=== PATIENT | male | born 1930 | race Caucasian/White ===

== ENCOUNTER 2016-05-13 15:51 | Emergency (ER) | payer MEDICARE, OTHER ==
[2016-05-13 15:59] VITALS: TEMP 97.6; BMI 28.8
[2016-05-13 16:53] LABS: URINE APPEARANCE CLEAR; URINE BILIRUBIN NEGATIVE (NEGATIVE); URINE COLOR YELLOW; URINE GLUCOSE (UA) NEGATIVE (NEGATIVE); URINE KETONE NEGATIVE (NEGATIVE); URINE NITRITE NEGATIVE (NEGATIVE); URINE PROTEIN NEGATIVE (NEGATIVE); URINE UROBILINOGEN NEGATIVE E.U./dl (0.2-1.0)
[2016-05-13 16:54] LABS: URINE BLOOD 2+ (NEGATIVE); URINE LEUK ESTERASE 1+ (NEGATIVE)
[2016-05-13 16:57] LABS: URINE MUCUS RARE; URINE RBC 45 /hpf (0-3); URINE WBC 10 /hpf (3-5)
[2016-05-13 17:29] LABS: CALCIUM 8.7 mg/dL (8.5-10.1); CREATININE 1.6 mg/dL (0.7-1.3)
--- NOTE | 2016-05-13 17:39 | PDOC ---
History of Present Illness - History of Present Illness Initial Comments: 05/13/16 17:46 The patient is a 85 year old male, with a significant past medical history of hypertension, hyperlipidemia, CAD s/p stents 12 years ago, s/p renal cancer, who presents to the emergency department with inability to urinate today. He reports his last urination was sometime last night. He reports numerous episodes of feeling immense pressure when trying to urinate, but denies urination today. He reports having an appointment with Dr. Freeman on where he believes he was dilated, but denies catheterization. He denies chest pain, shortness of breath, headache and dizziness. He denies fever, chills, nausea, vomit, diarrhea and constipation. He denies frequency and hematuria. 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 Farnsworth Urologist: Dr. Freeman <Anais Meehan - Last Filed: 05/13/16 17:46> <Flores Wing - Last Filed: 05/14/16 03:31> - General Chief Complaint: Urinary Problem Stated Complaint: URINARY PROBLEM Time Seen by Provider: 05/13/16 16:18 Past History <Anais Meehan - Last Filed: 05/13/16 17:46> - Past Medical History Anemia: No Asthma: No Cancer: Yes (R.KIDNEY) Cardiac Disorders: Yes (valve disease) CVA: No COPD: Yes CHF: No Dementia: No Diabetes: No GI Disorders: No Disorders: Yes (URINARY RETENTION,BPH) HTN: Yes Hypercholesterolemia: Yes Liver Disease: No Seizures: No Thyroid Disease: No - Surgical History Abdominal Surgery: No Appendectomy: No Cardiac Surgery: Yes (Angioplasty with stent,AORTIC VALVE SX) Cholecystectomy: No Lung Surgery: No Neurologic Surgery: No Orthopedic Surgery: No - Immunization History Immunization Up to Date: Yes - Psycho/Social/Smoking Cessation Hx Anxiety: No Suicidal Ideation: No Smoking History: Never smoked Have you smoked in the past 12 months: No Information on smoking cessation initiated: No Hx Alcohol Use: Yes Drug/Substance Use Hx: No Substance Use Type: Alcohol Hx Substance Use Treatment: No <Flores Wing - Last Filed: 05/14/16 03:31> - Past Medical History Allergies/Adverse Reactions: Allergies Allergy/AdvReac Type Severity Reaction Status Date / Time Penicillins Allergy Verified 05/13/16 15:59 Home Medications: Ambulatory Orders Tamsulosin HCl 0.4 mg PO DAILY 01/20/13 Aspirin Coated [Ecotrin -] 81 mg PO DAILY 04/19/14 Clopidogrel Bisulfate [Plavix -] 75 mg PO DAILY 12/02/15 Montelukast Na [Singulair -] 10 mg PO HS 12/02/15 Atorvastatin Ca [Lipitor] 40 mg PO HS 05/13/16 Ciprofloxacin [Cipro -] 500 mg PO Q12H #10 tablet 05/13/16 Finasteride 5 mg PO DAILY 05/13/16 Review of Systems - Review of Systems Able to Perform ROS?: Yes Comments:: 05/13/16 17:46 CONSTITUTIONAL: Absent: fever, chills, diaphoresis, generalized weakness, malaise, loss of appetite HEENT: Absent: rhinorrhea, nasal congestion, throat pain, throat swelling, difficulty swallowing, mouth swelling, ear pain, eye pain, visual Changes CARDIOVASCULAR: Absent: chest pain, syncope, palpitations, irregular heart rate, lightheadedness , peripheral edema RESPIRATORY: Absent: cough, shortness of breath, dyspnea with exertion, orthopnea, wheezing, stridor, hemoptysis GASTROINTESTINAL: Absent: abdominal pain, abdominal distension, nausea, vomiting, diarrhea, constipation, melena, hematochezia GENITOURINARY: (+) suprapubic pressure and inability to urinate. Absent: dysuria, frequency, hematuria, flank pain, genital pain MUSCULOSKELETAL: Absent: myalgia, arthralgia, joint swelling SKIN: Absent: rash, itching, pallor HEMATOLOGIC/IMMUNOLOGIC: Absent: easy bleeding, easy bruising, lymphadenopathy, frequent infections ENDOCRINE: Absent: unexplained weight gain, unexplained weight loss, heat intolerance, cold intolerance NEUROLOGIC: Absent: headache, focal weakness or paresthesias, dizziness, unsteady gait, seizure, mental status changes, bladder or bowel incontinence PSYCHIATRIC: Absent: anxiety, depression, suicidal or homicidal ideation, hallucinations. <Anais Meehan - Last Filed: 05/13/16 17:46> *Physical Exam - Vital Signs Last Vital Signs Temp Pulse Resp BP Pulse Ox 97.6 F 73 18 153/66 98 05/13/16 15:55 05/13/16 15:55 05/13/16 15:55 05/13/16 15:55 05/13/16 15:55 - Physical Exam Comments: 05/13/16 17:47 GENERAL: Well developed, well nourished. Awake and alert. No acute distress. HEENT: Normocephalic, atraumatic. PERRLA, EOMI. No conjunctival pallor. Sclera are non- icteric. Moist mucous membranes. Oropharynx is clear. NECK: Supple. Full ROM. No JVD. Carotid pulses 2+ and symmetric, without bruits. No thyromegaly. No lymphadenopathy. CARDIOVASCULAR: (+) Holistic murmur. Regular rate and rhythm. No rubs, or gallops. Distal pulses are 2+ and symmetric. PULMONARY: No evidence of respiratory distress. Lungs clear to auscultation bilaterally. No wheezing, rales or rhonchi. ABDOMINAL: Soft. Non-tender. Non-distended. No rebound or guarding. No organomegaly. Normoactive bowel sounds. MUSCULOSKELETAL Normal range of motion at all joints. No bony deformities or tenderness. No CVA tenderness. EXTREMITIES: (+) +1 bilateral lower extremity edema. No cyanosis. No clubbing. No calf tenderness. SKIN: Warm and dry. Normal capillary refill. No rashes. No jaundice. NEUROLOGICAL: Alert, awake, appropriate. Cranial nerves 2-12 intact. Normoreflexic in the upper and lower extremities. Normal speech. Toes are down-going bilaterally. Gait is normal without ataxia. PSYCHIATRIC: Cooperative. Good eye contact. Appropriate mood and affect. <Anais Meehan - Last Filed: 05/13/16 17:46> - Vital Signs Last Vital Signs Temp Pulse Resp BP Pulse Ox 97.6 F 73 18 153/66 98 05/13/16 15:55 05/13/16 15:55 05/13/16 15:55 05/13/16 15:55 05/13/16 15:55 <Flores Wing - Last Filed: 05/14/16 03:31> ED Treatment Course - LABORATORY CBC & Chemistry Diagram: 05/13/16 16:44 - ADDITIONAL ORDERS Additional order review: Laboratory Results 05/13/16 05/13/16 16:44 16:40 Sodium 143 Potassium 3.8 Chloride 109 H Carbon Dioxide 23 Anion Gap 11 BUN 26 H Creatinine 1.6 H Random Glucose 96 Calcium 8.7 Urine Color Yellow Urine Appearance Clear Urine pH 5.0 Ur Specific [place] 1.019 Urine Protein Negative Urine Glucose (UA) Negative Urine Ketones Negative Urine Blood 2+ H Urine Nitrite Negative Urine Bilirubin Negative Urine Urobilinogen Negative Ur Leukocyte Esterase 1+ H Urine RBC 45 Urine WBC 10 Ur Epithelial Cells Rare Urine Mucus Rare <Anais Meehan - Last Filed: 05/13/16 17:46> - LABORATORY CBC & Chemistry Diagram: 05/13/16 16:44 - ADDITIONAL ORDERS Additional order review: Laboratory Results 05/13/16 05/13/16 16:44 16:40 Sodium 143 Potassium 3.8 Chloride 109 H Carbon Dioxide 23 Anion Gap 11 BUN 26 H Creatinine 1.6 H Random Glucose 96 Calcium 8.7 Urine Color Yellow Urine Appearance Clear Urine pH 5.0 Ur Specific [place] 1.019 Urine Protein Negative Urine Glucose (UA) Negative Urine Ketones Negative Urine Blood 2+ H Urine Nitrite Negative Urine Bilirubin Negative Urine Urobilinogen Negative Ur Leukocyte Esterase 1+ H Urine RBC 45 Urine WBC 10 Ur Epithelial Cells Rare Urine Mucus Rare <Flores Wing - Last Filed: 05/14/16 03:31> Medical Decision Making - Medical Decision Making 05/14/16 03:28 85 yo male w h/o BPH has had urinary retention today. He has had this problem before and his urologist is Dr Sage -stone catheter was placed and pt felt much better -greater 400cc of urine obtained -pt placed on cipro /discharged and will see urologist this week <Flores Wing - Last Filed: 05/14/16 03:31> *DC/Admit/Observation/Transfer - Attestations Scribe Attestion: 05/13/16 17:47 Documentation prepared by Anais Meehan, acting as chief medical officer for Flores Wing MD <Anais Meehan - Last Filed: 05/13/16 17:46> <Flores Wing - Last Filed: 05/14/16 03:31> Diagnosis at time of Disposition: Urinary retention - Discharge Dispostion Disposition: HOME Condition at time of disposition: Stable - Prescriptions Prescriptions: Ciprofloxacin [Cipro -] 500 mg PO Q12H #10 tablet - Referrals Referrals: Melvin Goff MD [Primary Care Provider] - Maciej Freeman MD [Staff Physician] - - Patient Instructions Printed Discharge Instructions: DI for Urinary Retention in Men Additional Instructions: please see your urologist as soon as possible [employer] the prescription for your antibiotics at your pharmacy
[2016-05-13] MEDS ORDERED: LEVOFLOXACIN 500 MG TABLET (FP) PO ONE (17:42)
[2016-05-13] MEDS ORDERED: LEVOFLOXACIN 500 MG TABLET (FP) ONE (18:00)
[2016-05-13 18:05] VITALS: BP 149/70; PULSE 81
== END 2016-05-13 18:05 | disposition home or self-care (01) ==
LOC: JER 15:51
PROC: 0T9B70Z Drainage of Bladder with Drainage Device, Via Natural or Artificial Opening (ICD-10-PCS; principal; 2016-05-13)
DX: N40.1 Benign prostatic hyperplasia with lower urinary tract symptoms (principal); R33.8 Other retention of urine; I25.10 Atherosclerotic heart disease of native coronary artery without angina pectoris; I10 Essential (primary) hypertension; Z95.5 Presence of coronary angioplasty implant and graft; E78.5 Hyperlipidemia, unspecified; E78.00 Pure hypercholesterolemia, unspecified; Z85.528 Personal history of other malignant neoplasm of kidney
CPT/HCPCS: 36415; 51702; 80048; 81003; 81015; 87086; 99283-25

== ENCOUNTER 2016-08-06 15:15 | Inpatient (IN) | payer OTHER ==
[2016-08-06 17:15] LABS: BASOPHIL 0.5 % (0-2.0); EOSINOPHIL 0.8 % (0-4.5); MCH 29.2 pg (25.7-33.7); MCHC 33.2 g/dl (32.0-35.9); MEAN CELL VOLUME 87.9 fl (80-96); MEAN PLT VOLUME 9.8 fl (7.5-11.1); NEUTROPHILS 85.8 % (42.8-82.8); PLATELET COUNT 135 K/MM3 (134-434); RDW 17.4 % (11.9-15.9); WHITE BLOOD COUNT 11.9 K/mm3 (4.0-10.0)
--- NOTE | 2016-08-06 17:24 | PDOC ---
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 Patient underwent an MRI on 07/20 as part of a workup for pancreatic head density. An obstructing CBD stone measuring at least 1 cm with marked proximal CBD dilatation up to 1.4 cm and intrahepatic biliary ductal dilatation was incidentally noted. The patient presents today complaining of abdominal pain. He had 1 episode of "clear" vomiting on and then again on Saturday. He is complaining of chills. Vital signs on arrival are unremarkable. PCP is Dr. 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 No weakness. No weight change. HEAD, EYES, EARS, NOSE AND THROAT: No change in vision. No ear pain or discharge. No sore throat. CARDIOVASCULAR: No chest pain or palpitations. RESPIRATORY: No cough, wheezing, or shortness of breath. GASTROINTESTINAL: See HPI. GENITOURINARY: No dysuria, frequency, or change in urination. MUSCULOSKELETAL: No joint or muscle swelling or pain. No neck or back pain. SKIN: No rash or easy bruising. NEUROLOGIC: No headache, vertigo, loss of consciousness, or loss of sensation. PSYCHIATRIC: No depression or anxiety. ENDOCRINE: No increased thirst. No abnormal weight change. HEMATOLOGIC/LYMPHATIC: No anemia, easy bleeding, or history of blood clots. ALLERGIC/IMMUNOLOGIC: No hives or skin allergy. No latex allergy. PHYSICAL EXAM: GENERAL: The patient is awake, alert, and fully oriented, in no acute distress. HEAD: Normal with no signs of trauma. ENT: Pupils equal, round and reactive to light, extraocular movements intact, sclera anicteric, conjunctiva clear. Neck supple. LUNGS: Clear to auscultation bilaterally. Normal excursion. No respiratory distress or use of accessory muscles. CV: RRR, S1/S2, no MRG. Cap refill < 2 sec. ABDOMEN: Soft, non-distended, RUQ tenderness. Periumbilical erythema and purulent, malodorous discharge. EXTREMITIES: Normal range of motion, no edema. NEUROLOGICAL: Normal speech, normal gait. CN II-XII grossly intact. PSYCH: Normal mood, normal affect. SKIN: Warm, dry, normal turgor, no rashes or lesions noted. Past History - Past Medical History Allergies/Adverse Reactions: Allergies Allergy/AdvReac Type Severity Reaction Status Date / Time Penicillins Allergy Verified 08/06/16 15:20 Home Medications: Ambulatory Orders Aspirin Coated [Ecotrin -] 81 mg PO DAILY 04/19/14 Montelukast Na [Singulair -] 10 mg PO HS 12/02/15 Atorvastatin Ca [Lipitor] 40 mg PO HS 05/13/16 Finasteride 5 mg PO DAILY 05/13/16 Anemia: No Asthma: No Cancer: Yes (R.KIDNEY) Cardiac Disorders: Yes (valve disease) CVA: No COPD: Yes CHF: No Dementia: No Diabetes: No GI Disorders: No Disorders: Yes (URINARY RETENTION,BPH) HTN: Yes Hypercholesterolemia: Yes Liver Disease: No Seizures: No Thyroid Disease: No - Surgical History Abdominal Surgery: No Appendectomy: No Cardiac Surgery: Yes (Angioplasty with stent,AORTIC VALVE SX) Cholecystectomy: No Lung Surgery: No Neurologic Surgery: No Orthopedic Surgery: No - Immunization History Immunization Up to Date: Yes - Psycho/Social/Smoking Cessation Hx Anxiety: No Suicidal Ideation: No Smoking History: Never smoked Have you smoked in the past 12 months: No Information on smoking cessation initiated: No Hx Alcohol Use: No Drug/Substance Use Hx: No Substance Use Type: None Hx Substance Use Treatment: No *Physical Exam - Vital Signs Last Vital Signs Temp Pulse Resp BP Pulse Ox 97.4 F L 87 17 140/59 97 08/06/16 15:18 08/06/16 15:18 08/06/16 15:18 08/06/16 15:18 08/06/16 15:18 ED Treatment Course - LABORATORY CBC & Chemistry Diagram: 08/06/16 16:51 08/06/16 16:51 - ADDITIONAL ORDERS Additional order review: 08/06/16 16:51 RBC 3.66 L MCV 87.9 MCHC 33.2 RDW 17.4 H D MPV 9.8 D Neutrophils % 85.8 H Lymphocytes % 5.8 L D Monocytes % 7.1 Eosinophils % 0.8 Basophils % 0.5 - RADIOLOGY Radiology Studies Ordered: Category Date Time Status CHEST X-RAY PORTABLE* [RAD] Stat Radiology 08/06/16 17:00 Ordered GALLBLADDER US [US] Stat Ultrasound 08/06/16 16:52 Ordered Medical Decision Making - Medical Decision Making 08/06/16 17:54 A/P: 85 year old male with abdominal pain, vomiting, and chills; large, obstructing CBD stone on outpatient MRI two weeks ago. 1. EKG 2. Abdominal labs 3. Abd u/s 4. GI consultation 5. Culture of umbilical discharge 6. Antibiotic coverage with Levaquin/Flagyl 7. Anticipate admission 08/06/16 18:18 -WBC is 11.9 08/06/16 18:52 -Total/direct Bili 9.7/8 -AST/ALT 114/87 -Alk Phos 1048 -Cr 3.3 (1.6 on prior visit in June) Will request admission. *DC/Admit/Observation/Transfer Diagnosis at time of Disposition: Calculus of common duct with obstruction - Discharge Dispostion Admit: Yes - Referrals Referrals: Melvin Goff MD [Primary Care Provider] -
[2016-08-06 17:46] LABS: ALBUMIN 2.6 g/dl (3.4-5.0); CALCIUM 8.5 mg/dL (8.5-10.1); COCKROFT - GAULT 19.02; CREATININE 3.3 mg/dL (0.7-1.3)
[2016-08-06] MEDS ORDERED: SODIUM CHLORIDE 1,000 ML IV STA (17:47)
--- NOTE | 2016-08-06 17:52 | CON.GI ---
Consult Consult Specialty:: GI Referred by:: Dr. Melvin Goff Reason for Consultation:: Choledocholithoasis - History of Present Illness Chief Complaint: Nausea, vomiting, chills History of Present Illness: 85M admitted through [facility] ER for eval of chills, nausea/vomiting. The N/V occurred after meals on and this past Saturday. He had an MRI of the abdomen performed 07/20/16 revealing a large distal CBD stone with dilated CBD and intrahepatics as well as a ? 1.4cm density in the head of the pancreas of unclear etiology. he also was admitted to [facility] in 2014 for cholecystitis. He was evaluated by Dr. Ortiz who advised conservative management. Cholecystectomy was never performed. He currently denies abdominal pain. He also complains that his belly button has been leaking - History Source History Provided By: Patient, Family Member Limitations to Obtaining History: No Limitations - Past Medical History Cardio/Vascular: Yes: Aortic Stenosis (with ? 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 History of Recent Travel: No Home Medications - Allergies Allergies/Adverse Reactions: Allergies Allergy/AdvReac Type Severity Reaction Status Date / Time Penicillins Allergy Verified 08/06/16 15:20 - Home Medications Home Medications: Ambulatory Orders Aspirin Coated [Ecotrin -] 81 mg PO DAILY 04/19/14 Montelukast Na [Singulair -] 10 mg PO HS 12/02/15 Atorvastatin Ca [Lipitor] 40 mg PO HS 05/13/16 Finasteride 5 mg PO DAILY 05/13/16 Family Disease History - Family Disease History Family Disease History: Other: Father ( 80's unclear cause), Mother ( 80 's CVA/PA), Brother (1 brother CHF, 1 brother stomach cancer) Review of Systems - Review of Systems Constitutional: reports: Chills Cardiovascular: reports: Edema. denies: Chest Pain Respiratory: denies: SOB Physical Exam-GI Vital Signs: Vital Signs Temperature 97.4 F L 08/06/16 1800 Pulse Rate 76 08/06/16 1800 Respiratory Rate 17 08/06/16 1800 Blood Pressure 130/69 08/06/16 1800 O2 Sat by Pulse Oximetry (%) 97 08/06/16 1800 Constitutional: Yes: Calm Eyes: Yes: Sclera Icterus Cardiovascular: Yes: Regular Rate and Rhythm, Murmur (+ 2/6 systolic murmur) Respiratory: Yes: CTA Bilaterally Gastrointestinal Inspection: Yes: Other (erythema around umbilicus with foul smelling purulent fluid in umbilicus). No: Distention ...Auscultate: Yes: Normoactive Bowel Sounds ...Palpate: No: Tenderness ...Percussion: No: Tympanitic Edema: Yes Edema: LLE: 1+, RLE: 1+ Neurological: Yes: Alert, Oriented Labs: CBC, BMP 08/06/16 16:51 Imaging - Results Ultrasound: Pending Problem List - Problems (1) Choledocholithiasis Assessment/Plan: Also with possible mass at the head of the pancreas. Duscussed findings with patient, his and his nephew who were present bedside. Discussed possibility of ERCP. Discussed risks of the procedure like but not limited to bleeding, perforation requiring surgery to repair, infection, sedation medication effects, pancreatitis, all of which could be potentially life threatening. He has agreed to the procedure Awaiting LFTS No flagyl available and patient with pcn allergy documented. ID consult for Abx management and eval of umbilical purulence AM labs including coags NPO after midnight, clear liquid diet tonight Clarification of whether patient is on Plavix or not. he does not recall being on it however it is on the medication list his provided. His contract designer is Dr. Vieyra @ [facility]. Code(s): K80.50 - CALCULUS OF BILE DUCT W/O CHOLANGITIS OR CHOLECYST W/O OBST
[2016-08-06 18:00] LABS: BILIRUBIN,TOTAL 9.7 mg/dL (0.2-1.0); TOT PROT 5.9 g/dl (6.4-8.2)
--- NOTE | 2016-08-06 19:38 | HP ---
CHIEF COMPLAINT: Abdominal Pain, Nausea/Vomiting, Periumbilical Discharge PCP: Dr. 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 Who presents to the emergency department sent in by his PMD for an abnormal MRI. Patient underwent an MRI on 07/20 as part of a workup for pancreatic head density. An obstructing CBD stone measuring at least 1 cm with marked proximal CBD dilatation up to 1.4 cm and intrahepatic biliary ductal dilatation was incidentally noted. Patient reports having chills, N/V, abdominal pain x 3-4 days, periumbilical malodorous discharge x 1 week. Patient denies fever, cough, SOB, CP, diarrhea, constipation, dysuria. ER course was notable for: (1) Gallbladder US showed- mild distended GB, no cholelithiasis, no acute cholecystitis. 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 Family History: Non-Contributory Allergies Penicillins Allergy (Verified 08/06/16 15:20) HOME MEDICATIONS: Home Medications Medication Instructions Recorded Aspirin Coated [Ecotrin -] 81 mg PO DAILY 04/19/14 Montelukast Na [Singulair -] 10 mg PO HS 12/02/15 Atorvastatin Ca [Lipitor] 40 mg PO HS 05/13/16 Finasteride 5 mg PO DAILY 05/13/16 REVIEW OF SYSTEMS CONSTITUTIONAL: chills Absent: fever, diaphoresis, generalized weakness, malaise, loss of appetite, weight change HEENT: Absent: rhinorrhea, nasal congestion, throat pain, throat swelling, difficulty swallowing, mouth swelling, ear pain, eye pain, visual changes CARDIOVASCULAR: Absent: chest pain, syncope, palpitations, irregular heart rate, lightheadedness , peripheral edema RESPIRATORY: Absent: cough, shortness of breath, dyspnea with exertion, orthopnea, wheezing, stridor, hemoptysis GASTROINTESTINAL:abdominal pain, nausea, vomiting Absent: abdominal distension, diarrhea, constipation, melena, hematochezia GENITOURINARY: Absent: dysuria, frequency, urgency, hesitancy, hematuria, flank pain, genital pain MUSCULOSKELETAL: back pain Absent: myalgia, arthralgia, joint swelling, neck pain SKIN: erythema to periumbilical Absent: rash, itching, pallor HEMATOLOGIC/IMMUNOLOGIC: Absent: easy bleeding, easy bruising, lymphadenopathy, frequent infections ENDOCRINE: Absent: unexplained weight gain, unexplained weight loss, heat intolerance, cold intolerance NEUROLOGIC: Absent: headache, focal weakness or paresthesias, dizziness, unsteady gait, seizure, mental status changes, bladder or bowel incontinence PSYCHIATRIC: Absent: anxiety, depression, suicidal or homicidal ideation, hallucinations. PHYSICAL EXAMINATION Vital Signs - 24 hr 08/06/16 15:18 Temperature 97.4 F L Pulse Rate 87 Respiratory 17 Rate Blood Pressure 140/59 O2 Sat by Pulse 97 Oximetry (%) GENERAL: Awake, alert, and fully oriented, in no acute distress. HEAD: Normal with no signs of trauma. EYES: Sclera icteric Pupils equal, round and reactive to light, extraocular movements intact, conjunctiva clear. No lid lag. EARS, NOSE, THROAT: Ears normal, nares patent, oropharynx clear without exudates. Moist mucous membranes. NECK: Normal range of motion, supple without lymphadenopathy, JVD, or masses. LUNGS: Breath sounds equal, clear to auscultation bilaterally. No wheezes, and no crackles. No accessory muscle use. HEART: 2/6 Systolic murmur, Regular rate and rhythm, normal S1 and S2, rub or gallop. ABDOMEN: Erythema, malodorous clear discharge to periumbilical region. Soft, nontender, not distended, normoactive bowel sounds, no guarding, no rebound, no masses. No hepatomegaly or splenomegaly. MUSCULOSKELETAL: Mid lumbar tenderness upon palpation. Normal range of motion at all joints. No bony deformities. No CVA tenderness. UPPER EXTREMITIES: 2+ pulses, warm, well-perfused. No cyanosis. No clubbing. No peripheral edema. LOWER EXTREMITIES:+1 bilateral pitting peripheral edema. 2+ pulses, warm, well- perfused. No calf tenderness. NEUROLOGICAL: Cranial nerves II-XII intact. Normal speech. Gait not observed. PSYCHIATRIC: Cooperative. Good eye contact. Appropriate mood and affect. SKIN: Jaundice, warm, dry, normal turgor, no rashes or lesions noted, normal capillary refill. Laboratory Results - last 24 hr 3 08/06/16 08/06/16 08/06/16 16:51 16:51 16:51 WBC 11.9 H D RBC 3.66 L Hgb 10.7 L Hct 32.1 L MCV 87.9 MCHC 33.2 RDW 17.4 H D Plt Count 135 MPV 9.8 D Neutrophils % 85.8 H Lymphocytes % 5.8 L D Monocytes % 7.1 Eosinophils % 0.8 Basophils % 0.5 Sodium 139 Potassium 4.0 Chloride 102 Carbon Dioxide 21 Anion Gap 16 BUN 49 H D Creatinine 3.3 H D Creat Clearance w eGFR 17.82 Random Glucose 94 Calcium 8.5 Total Bilirubin 9.7 H D Direct Bilirubin 8.0 H D AST 114 H D ALT 87 H D Alkaline Phosphatase 1048 H D Total Protein 5.9 L Albumin 2.6 L Lipase 479 H ASSESSMENT/PLAN: This is a 85 y/o male with a PMHx of: HTN, CAD s/p stent, Aortic Stenosis, Porcine Valve Replacement (on Asa, Plavix, 08/2015), Urtheral Strictures s/p Dilatation, R- Nephrectomy ( secondary Kidney Ca). Admitted for Choledocholithiasis, Acute Transaminitis, Periumbilical Cellulitis, Abdominal Pain, Leukocytosis, for further evaluation of their emergent condition. Plan: 1. Choledocholithiasis - Likely secondary to calculus in CBD - US gallbladder reviewed - MRI of abdomen 07/20/16- reviewed - GI following - WBC 11.9 with Left shift - T bili 9.7 Direct Bili 8.0 - Started on Levofloxacin in ED - Will continue ABX - Probable ERCP in am - Clear Liquids tonight, then NPO after midnight - Monitor CBC, BMP - Monitor vitals 2. Abdominal Pain - See Above 3. Acute Transaminitis - Likely secondary to calculus in CBD - Trend LFTs 4. Periumbilical Cellulitis - Wound Culture-pending - Appreciate ID Consult - Levofloxacin started in ED - Monitor vitals 5. Leukocytosis - Blood Cultures-pending - Continue ABX 6. HTN - Controlled - Monitor BP - Continue home meds 7. FEN - D5 1/2 NS@60cc/hr - Replete lytes - Clear Tonight, NPO after midnight 8. DVT/PPI - OOB - SCDs - Heparin SQ Code Status: Full Code Problem List - Problem (1) Calculus of common duct with obstruction Code(s): K80.51 - CALCULUS OF BILE DUCT W/O CHOLANGITIS OR CHOLECYST W OBST (2) Choledocholithiasis Code(s): K80.50 - CALCULUS OF BILE DUCT W/O CHOLANGITIS OR CHOLECYST W/O OBST (3) Cellulitis, umbilical Code(s): L03.316 - CELLULITIS OF UMBILICUS (4) Hypertension Code(s): I10 - ESSENTIAL (PRIMARY) HYPERTENSION (5) DVT prophylaxis Code(s): DDN0250 - Visit type - Emergency Visit Emergency Visit: Yes ED Registration Date: 08/06/16 Care time: The patient presented to the Emergency Department on the above date and was hospitalized for further evaluation of their emergent condition. - New Patient This patient is new to me today: Yes Date on this admission: 08/06/16 - Critical Care Critical Care patient: No
[2016-08-06] MEDS ORDERED: LEVOFLOXACIN 750 MG IVPB 150 ML IVPB ONE ×2 (19:39→19:47)
[2016-08-06] MEDS ORDERED: METRONIDAZOLE 500 MG PREMIXED 100 ML IVPB ONE ×2 (19:50→21:10)
[2016-08-06] MEDS ORDERED: PHYTONADIONE 10 MG/1 ML AMP SQ ONE (22:56)
[2016-08-07 00:54] LABS: INR 1.11 (0.82-1.09); PROTHROMBIN TIME (PATIENT) 12.2 SEC (9.98-11.88)
[2016-08-07] MEDS ORDERED: DEXTROSE 5%-0.45% SALINE 1,000 ML IV SCH ×2 (01:00→09:55)
[2016-08-07] MEDS ORDERED: morphine CARPU-JECT 2 MG/1 ML DISP.SYRIN IVPUSH ONE (01:41)
[2016-08-07 02:03] VITALS: BMI 27.8
[2016-08-07 07:38] LABS: MCH 29.7 pg (25.7-33.7); MCHC 33.7 g/dl (32.0-35.9); MEAN CELL VOLUME 88.1 fl (80-96); MEAN PLT VOLUME 9.7 fl (7.5-11.1); PLATELET COUNT 61 K/MM3 (134-434); RDW 16.9 % (11.9-15.9); WHITE BLOOD COUNT 5.7 K/mm3 (4.0-10.0)
[2016-08-07 08:17] LABS: CALCIUM 7.4 mg/dL (8.5-10.1)
[2016-08-07 08:34] LABS: BILIRUBIN,TOTAL 8.9 mg/dL (0.2-1.0); COCKROFT - GAULT 16.11; CREATININE 3.9 mg/dL (0.7-1.3); TOT PROT 4.6 g/dl (6.4-8.2)
[2016-08-07] MEDS ORDERED: morphine CARPU-JECT 2 MG/1 ML DISP.SYRIN IVPUSH PRN (08:45)
[2016-08-07 09:00] LABS: INR 1.19 (0.82-1.09); PROTHROMBIN TIME (PATIENT) 13.1 SEC (9.98-11.88)
[2016-08-07 09:38] LABS: BASOPHIL 0.2 % (0-2.0); EOSINOPHIL 0.5 % (0-4.5); MCH 29.4 pg (25.7-33.7); MCHC 33.1 g/dl (32.0-35.9); MEAN CELL VOLUME 88.8 fl (80-96); MEAN PLT VOLUME 9.9 fl (7.5-11.1); NEUTROPHILS 97.3 % (42.8-82.8); PLATELET COUNT 60 K/MM3 (134-434); RDW 16.9 % (11.9-15.9); WHITE BLOOD COUNT 8.3 K/mm3 (4.0-10.0)
--- NOTE | 2016-08-07 10:23 | PN ---
Progress Note (short form) - Note Progress Note: ID consult dictated imp/reccd 85 year old man with TAVR August 2015, right nephrectomy 2010, urethral stricture- last dilatation 2-3 weeks ago sent to ED by PCP for abnormal MRI with dilated CBD with obstructing stone patient reports chills labs notable for wbc of 11K in ED with Bilirubin of 9.7, alk phos of 1048 he received levaquin and flagyl in ED also he noted umbilical drainage for last 2 months - saw Dr Weems who did a culture- SCN, Diphtheroids, prevotella 07/16/16 no iv flagyl available pen allergy per chart- patient is not aware, he received ceftriaxone in 2014 no s/e noted now with thrombocytopenia as well as hypotension r/o biliary sepsis- blood cultures stat, ertapenem adjusted for renal failure umbilical cellulitis- cover broadly- vanco/ertapenem, culture sent CBD obstruction- per GI [facility]- renal sono, bladder scan, has history of urethral stricture- followed by Dr Freeman thrombocytopenia- acute, cover for sepsis, further management per hospitalist service recent TAVR history of nephrectomy d/w hospitilist cardiology consult consider IVF
[2016-08-07] MEDS ORDERED: ERTAPENEM SODIUM 0.5 GM in SODIUM CHLORIDE 50 ML IVPB SCH (11:00)
[2016-08-07] MEDS ORDERED: VANCOMYCIN 1 GRAM (PRE-DOCKED) 250 ML IVPB ONE (11:00)
--- NOTE | 2016-08-07 11:09 | PN ---
Physical Exam: SUBJECTIVE: Patient seen and examined. Verbalizes pain at the umbilicus. Denies any chest pain or shortness of breath. OBJECTIVE: Generalized jaundice manual BP taken by me: 90/55, platelets 130>60s likely sepsis, ID consulted, blood culture ordered by ID, started on ertapenem umbilicus with foul odor/sero sang drainage Vital Signs Period Temp Pulse Resp BP Sys/Hinkle Pulse Ox Last 24 Hr 97.8 F-98.9 F 70-87 16-20 91-138/44-55 95-97 GENERAL: Awake, alert, and fully oriented, very fatigued, lethargic HEAD: Normal with no signs of trauma. EYES: Sclera icteric Pupils equal, round and reactive to light ENT: Ears normal, nares patent, oropharynx clear without exudates. Moist mucous membranes. NECK: Normal range of motion, supple without lymphadenopathy, JVD, or masses. LUNGS: Breath sounds equal, clear to auscultation bilaterally. No wheezes, and no crackles HEART: Regular rate and rhythm, normal S1 and S2, rub or gallop. ABDOMEN: +erythema, sero/sang malodorous drainage to periumbilical region. MUSCULOSKELETAL: Normal range of motion at all joints. No bony deformities. No CVA tenderness. UPPER EXTREMITIES: 2+ pulses, warm, well-perfused. No cyanosis. No clubbing. No peripheral edema. LOWER EXTREMITIES:2+ pulses, warm, well-perfused NEUROLOGICAL: Normal speech. fall risk, gait unsteady PSYCHIATRIC: Cooperative. Good eye contact. Appropriate mood and affect. SKIN: generalized jaundice Laboratory Results - last 24 hr 08/06/16 08/06/16 08/07/16 23:50 23:50 06:00 WBC RBC Hgb Hct MCV MCHC RDW Plt Count MPV Neutrophils % Lymphocytes % Monocytes % Eosinophils % Basophils % INR 1.11 1.19 H PTT (Actin FS) 32.0 D Sodium Potassium Chloride Carbon Dioxide Anion Gap BUN Creatinine Creat Clearance w eGFR Random Glucose Calcium Total Bilirubin AST ALT Alkaline Phosphatase Total Protein Albumin 08/07/16 08/07/16 08/07/16 06:00 06:00 09:00 WBC 5.7 D 8.3 D RBC 3.45 L 3.65 L Hgb 10.2 L 10.7 L Hct 30.4 L 32.4 L MCV 88.1 88.8 MCHC 33.7 33.1 RDW 16.9 H 16.9 H Plt Count 61 L D 60 L MPV 9.7 9.9 Neutrophils % Y 97.3 H Lymphocytes % Y 1.1 L D Monocytes % 0.9 L D Eosinophils % 0.5 Basophils % 0.2 INR PTT (Actin FS) Sodium 140 Potassium 4.0 Chloride 105 Carbon Dioxide 18 L Anion Gap 17 H BUN 49 H Creatinine 3.9 H Creat Clearance w eGFR 14.70 Random Glucose 54 L D Calcium 7.4 L Total Bilirubin 8.9 H AST 95 H ALT 66 D Alkaline Phosphatase 1007 H Total Protein 4.6 L D Albumin 2.0 L D Active Medications Generic Name Dose Route Start Last Admin Trade Name Freq PRN Reason Stop Dose Admin Dextrose/Sodium Chloride 1,000 mls @ 100 mls/hr 08/07/16 09:55 D5-1/2ns - IV ASDIR SUBHA Ertapenem 0.5 gm/ Sodium 50 mls @ 100 mls/hr 08/07/16 11:00 Chloride IVPB DAILY [facility] Protocol Vancomycin HCl 250 mls @ 166.667 mls/hr 08/07/16 11:00 Vancomycin (Pre-Docked) IVPB 08/07/16 12:29 ONCE ONE Protocol Morphine Sulfate 1 mg 08/07/16 08:45 08/07/16 09:43 Morphine Injection - IVPUSH 1 mg Q4H PRN Administration PAIN ASSESSMENT/PLAN: Patient is a 85 year old male with a significant past medical history of hypertension, CAD s/p stent placement, aortic stenosis, porcine valve replacement (takes both ASA 81mg and Plavix 75mg), 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 He was admitted on 08/06/2016 for abdominal pain, acute choledocholithiasis, acute transaminitis, jaundice and leukocytosis and shaking chills. GI: Acute Choledocholithiasis/abdominal pain/generalized jaundice/acute transaminitis Assessment/Plan: Abdominal pain likely secondary to calculus on common bile duct Found to have elevated bilirubin and large stone in CBD In ED started on Levofloxacin Now on Enterpenem per ID, given one dose of Vancomycin Blood cultures ordered Had ERCP done today with duct balloon spincteroplasty and stent now intubated, on dopamine : Chronic Kidney Disease - acute on chronic Renal cancer s/p right nephrectomy Assessment/Plan: Creatinine 3.9, baseline ~ 1.7 Renal consulted On IVF of D5 ns @100/cc/hr Trend bun/creat. ID: Sepsis - likely secondary to periumbilicus cellulitis vs. cholangitis Periumbilical cellulitis - chronic Assessment: Wound culture pending Likely will need drainage from this site foul odor with some sero sang/clear discharge On Enterpenem Surgical consult for likely drainage of abscess once pt more stable blood cultures pending, ID following Cardiology: Hypertension - chronic Assessment/Plan: hypotensive now, monitor BP CAD s/p stent placement On ASA 81mg and Plavix 75mg - on hold Hematology: Thrombocytopenia Assessment/Plan: likely secondary to sepsis Monitor F.E.N. Fluids: d5 1/2 NS @100cc/hr Electrolytes: monitor bmp Nutrition: NPO for ERCP Prophylaxis: DVT: SCDs, Lovenox GI: Protonix Code Status: Requires inpatient hospitalization. Full Code Visit type - Emergency Visit Emergency Visit: Yes ED Registration Date: 08/06/16 Care time: The patient presented to the Emergency Department on the above date and was hospitalized for further evaluation of their emergent condition. - New Patient This patient is new to me today: Yes Date on this admission: 08/07/16 - Critical Care Critical Care patient: No - Discharge Referral Referred to [facility] Med [facility].: No
--- NOTE | 2016-08-07 11:20 | CONS ---
DATE OF CONSULTATION: REQUESTING PHYSICIAN: Hospitalist service. HISTORY: This is an 85-year-old man who was sent to the emergency room yesterday for follow up of an abnormal MRI. He had an MRI as workup for a pancreatic head density that showed an obstructive common CBD stone. The patient received that he has had abdominal pain intermittently twice in the past week was vomiting twice clear fluid. He has had chills though, and he reported having chills in the emergency room. He did not take his temperature at home. He presents with these complaints. In the emergency room, he was noted to have periumbilical erythema and some purulent, malodorous drainage from his umbilicus. He as well was found to have a white count of 11.9. He had a BUN 49, creatinine 3.3 with a total bilirubin of 9.7 and an alkaline phosphatase of 1048. He was given Levaquin and Flagyl in the emergency room. I am asked to see him in follow up as the hospital has no parenteral Flagyl. He is currently n.p.o. He was evaluated by GI who is recommending ERCP. This morning the patient is awake and alert. He has severe arthritis pain and is complaining of severe back pain, which he has had for years. PAST MEDICAL HISTORY: Notable for a history of aortic stenosis. He had a TAVR in August 2015. He has a history of cardiac stent in 1995. He has a history of irritable bowel disease. He had an admission in 2014 for cholecystitis that resolved with medical management. He has a history of renal cell cancer and is status post right nephrectomy. As well, he has a history of urethral stricture and gets dilated by Dr. Freeman. He reports the last time he had a dilatation was in the office 2-3 weeks ago. FAMILY HISTORY: Notable for a brother who had heart failure, one with stomach cancer, and a mother who of a CVA and a heart attack. SOCIAL HISTORY: There is no history of any cigarette use or substance use. 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 He lives with his spouse. There has been no recent travel. ALLERGIES: The chart reports an allergy to PENICILLIN, which the patient denies. Looking back through the computer, in 2014 when he had cholecystitis he was given ceftriaxone, which he tolerated. HOME MEDICATIONS: Include Ecotrin, Singulair, Lipitor, and finasteride. REVIEW OF SYSTEMS: Notable for drainage from his umbilicus, which he reports he has had for 2 months. He was seen by Dr. Weems for this. He denies currently any abdominal pain and currently any chills. PHYSICAL EXAMINATION: General: He is awake and alert. Vital Signs: Temperature 97.8, pulse 83, blood pressure 97/50. HEENT: He is normocephalic. His eyes are icteric. Neck: Supple. Lungs: Diminished breath sounds at the bases. Heart: Regular rate and rhythm. Abdomen: Soft. Currently he has no abdominal tenderness. He has minimal drainage but very foul smelling from around his umbilicus. Extremities: Have 1+ edema. LABORATORY DATA: Notable for a white count of 8.3, white count on admission 11.9, hemoglobin 10.7, platelets 60,000, INR 1.19. BUN 49, creatinine 3.9 with a glucose of 54, total bilirubin 8.9 with alkaline phosphatase 1007. Urinalysis was not done and will be ordered. Wound culture has been sent. In summary, this is an 85-year-old man who now has hyperbilirubinemia, alkaline phosphatase 1048, and thrombocytopenia as well. Concern would be for possible biliary sepsis. Would send blood cultures STAT. Adjust his ertapenem for renal failure. Umbilical cellulitis. Would cover broadly with vancomycin and ertapenem. Cultures have been sent. CBD obstruction per GI. The possibility of an ERCP is being entertained. Acute kidney injury. Would obtain a renal sonogram and bladder scan. Has a history of urethral stricture. Thrombocytopenia. Would cover with antibiotics broadly for sepsis. Recent TAVR and a history of nephrectomy. The case was discussed with the hospitalist. MANASA MCCANN M.D. [id number]
--- NOTE | 2016-08-07 12:20 | CON.CARD ---
Consult Consult Specialty:: Cardiology Referred by:: Hospitalist Reason for Consultation:: Cardiac evaluation - History of Present Illness Chief Complaint: Abormal MRI of abdomen showing choledocholithiasis History of Present Illness: Patient is an 85 year old male with underlying history of renal CA S/P right nephrectomy, HTN, CAD S/P PCI/stent (1995) and S/P TAVR (at [facility] in 2015 - followed by Dr. Aubrey Vieyra) presents with an abnormal MRI of abdomen showing density in the head of pancrease, large distal CBD stone and dilated CBD. He complained of chills and vague abdominal discomfort earlier, but now discomfort appears to be absent. No fever or chills at the moment. ID and GI was consulted and started on broad spectrum antibiotics and GI plans for possible ERCP. He denies chest pain, shortness of breath or palpitations. He denies paroxysmal nocturnal dyspnea or orthopnea. He denies fever at the moment. Denies headache or lightheadedness. Cardiology consultation was called for further evaluation. - History Source History Provided By: Patient, Medical Record Limitations to Obtaining History: No Limitations - Past Medical History Cardio/Vascular: Yes: Aortic Stenosis (Post TAVR at [facility] in 2015), CAD (s/p cardiac stent/ PCI 1995), HTN, Other Hepatobiliary: Yes: Cholelithiasis Renal/: Yes: Cancer (Renal CA ), Renal Calculi, Other (urethral stricture s/p cystoscopy) - Past Surgical History Past Surgical History: Yes: Nephrectomy, Stent, Valve Replacement (TAVR) - Alcohol/Substance Use Hx Alcohol Use: No History of Substance Use: reports: None - Smoking History Smoking history: Never smoked Have you smoked in the past 12 months: No - Social History Usual Living Arrangement: With Spouse ADL: Independent 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 History of Recent Travel: No Home Medications - Allergies Allergies/Adverse Reactions: Allergies Allergy/AdvReac Type Severity Reaction Status Date / Time Penicillins Allergy Verified 08/06/16 15:20 - Home Medications Home Medications: Ambulatory Orders Aspirin Coated [Ecotrin -] 81 mg PO DAILY 04/19/14 Montelukast Na [Singulair -] 10 mg PO HS 12/02/15 Atorvastatin Ca [Lipitor] 40 mg PO HS 05/13/16 Finasteride 5 mg PO DAILY 05/13/16 Tipton-3 Fatty Acids [[place]-3] 1,500 mg PO 08/06/16 Family Disease History - Family Disease History Family Disease History: Other: Father ( 80's unclear cause), Mother ( 80 's CVA/[place]), Brother (1 brother CHF, 1 brother stomach cancer) Review of Systems - Review of Systems Constitutional: reports: Chills. denies: Fever Cardiovascular: denies: Chest Pain, Palpitations, Shortness of Breath Respiratory: denies: Cough, Hemoptysis, Orthopnea, PND Gastrointestinal: denies: Abdominal Pain, Constipation, Diarrhea, Melena, Nausea , Rectal Bleeding, Vomiting Genitourinary: denies: Dysuria Musculoskeletal: denies: Back Pain, Joint Pain Neurological: denies: Dizziness, Headache, Seizure, Syncope Vital Signs: Vital Signs Temperature 98.5 F 08/07/16 10:00 Pulse Rate 82 08/07/16 10:00 Respiratory Rate 20 08/07/16 10:00 Blood Pressure 101/52 08/07/16 10:00 O2 Sat by Pulse Oximetry (%) 95 08/07/16 01:34 Neck: Yes: Supple Respiratory: Yes: Diminished Gastrointestinal: Yes: Normal Bowel Sounds, Soft. No: Tenderness Cardiovascular: Yes: Regular Rate and Rhythm JVD: No Carotid Bruit: No PMI: Non-Displaced Heart Sounds: Yes: S1, S2 - Other Data Labs, Other Data: CBC, BMP 08/07/16 09:00 08/07/16 06:00 INR, PTT INR 1.19 (0.82-1.09) H 08/07/16 06:00 Fibrinogen 336.0 mg/dL (238-498) 08/07/16 11:20 Imaging - Results Chest X-ray: Report Reviewed Ultrasound: Report Reviewed MRI: Report Reviewed (Abdominal as noted on HPI) Problem List - Problems (1) Cellulitis, umbilical Code(s): L03.316 - CELLULITIS OF UMBILICUS (2) Choledocholithiasis Code(s): K80.50 - CALCULUS OF BILE DUCT W/O CHOLANGITIS OR CHOLECYST W/O OBST (3) Hypertension Code(s): I10 - ESSENTIAL (PRIMARY) HYPERTENSION (4) CAD (coronary artery disease) Code(s): I25.10 - ATHSCL HEART DISEASE OF [place] CORONARY ARTERY W/O ANG PCTRS Qualifiers: Qualified Code(s): I25.10 - Atherosclerotic heart disease of [place] coronary artery without angina pectoris (5) History of percutaneous coronary intervention Code(s): Z98.890 - OTHER SPECIFIED POSTPROCEDURAL STATES (6) Renal cancer Code(s): C64.9 - MALIGNANT NEOPLASM OF UNSP KIDNEY, EXCEPT RENAL PELVIS Qualifiers: Qualified Code(s): C64.1 - Malignant neoplasm of right kidney, except renal pelvis Assessment/Plan 1. Choledocholithiasis with CBD dilatation and stone 2. Post TAVR for severe 3. CAD, S/P PCI/stent 4. Hypertension 5. Renal CA S/P right nephrectomy 6. CKD 7. Thrombocytopenia PLAN: 1. Patient may proceed with GI work up (ERCP) as planned by GI service. There appears to be no absolute contraindication in proceeding with ERCP in view of absence of ischemic symptoms. Patient currently is on Plavix unclear whether he took it yesterday, but certainly held in the hospital. ERCP timing would be at the discretion of GI service. ASA also held. 2. Continue antibiotics coverage as per ID. Blood cultures pending 3. Follow BP response 4. Follow renal function and electrolytes 5. Follow CBC. Healthcare Administrative Assistant: Aubrey Vieyra MD ([facility]) Juan Hays MD
[2016-08-07 12:23] LABS: METAMYELOCYTE 8 % (0-2); PLATELET ESTIMATE DECREASED (NORMAL)
--- NOTE | 2016-08-07 13:18 | PN ---
GI Progress Note Subjective: No acute events Denies abdominal pain Had discussion w/ Dr. Goff today. After reviewing his records he confirmed that Mr. Nunez is definitely on plavix - Objective Vital Signs: Vital Signs Temperature 98.5 F 08/07/16 10:00 Pulse Rate 82 08/07/16 10:00 Respiratory Rate 20 08/07/16 10:00 Blood Pressure 101/52 08/07/16 10:00 O2 Sat by Pulse Oximetry (%) 95 08/07/16 01:34 Constitutional: Calm Eyes: Yes: Sclera Icterus Cardiovascular: Yes: Regular Rate and Rhythm, Murmur Respiratory: Yes: CTA Bilaterally Gastrointestinal Inspection: No: Distention ...Auscultate: Yes: Normoactive Bowel Sounds ...Percussion: No: Tympanitic Edema: No Edema: LUE: Trace, RUE: Trace, LLE: 1+, RLE: 1+ Neurological: Yes: Alert, Oriented Labs: CBC, BMP 08/07/16 09:00 08/07/16 06:00 INR, PTT INR 1.19 (0.82-1.09) H 08/07/16 06:00 Fibrinogen 336.0 mg/dL (238-498) 08/07/16 11:20 Hepatic Panel Total Bilirubin 8.9 mg/dL (0.2-1.0) H 08/07/16 06:00 Direct Bilirubin 8.0 mg/dL (0.0-0.2) H D 08/06/16 16:51 AST 95 U/L (15-37) H 08/07/16 06:00 ALT 66 U/L (12-78) D 08/07/16 06:00 Alkaline Phosphatase 1007 U/L (45-117) H 08/07/16 06:00 Albumin 2.0 g/dl (3.4-5.0) L D 08/07/16 06:00 Problem List - Problems (1) Choledocholithiasis Assessment/Plan: Jaundiced and symptomatic with post prandial vomiting. Dwindling platelet count could also reflect developing sepsis from cholangitis Given the above, plan today for emergent ERCP with balloon sphincteroplasty and stenting for decompression. Given that it was confimred that he is on plavix, he would be high risk for bleed with an attempted sphincterotomy. Also discussed with Dr. Ortega re: percutaneous drainage. He would prefer attempt at endoscopic internalized drainage first as the patient is on dual antiplatelet therapy and is thrombocytopenic. Abx have been adjusted per ID Reviewed the procedure again with Shayla Enrique including risks and benefits as outlined in yesterday evening's consultation and consent was obtained Discussed current clinical situation and plan with Dr. Goff. Code(s): K80.50 - CALCULUS OF BILE DUCT W/O CHOLANGITIS OR CHOLECYST W/O OBST
[2016-08-07] MEDS ORDERED: ROCURONIUM BROMIDE 50 MG/5 ML VIAL ONE (13:55)
[2016-08-07] MEDS ORDERED: PROPOFOL 20 ML ONE (13:55)
[2016-08-07] MEDS ORDERED: ONDANSETRON 4 MG/2 ML VIAL ONE (13:55)
[2016-08-07] MEDS ORDERED: SUCCINYLCHOLINE CHLORIDE 200 MG/10 ML VIAL ONE (13:55)
--- NOTE | 2016-08-07 14:31 | CONSULT ---
Consult Consult Specialty:: Nephrology Reason for Consultation:: CRISS - History of Present Illness Chief Complaint: abdominal pain and vomiting History of Present Illness: Pt is an 85 year old male with pmhx of CKD, CAD, RCC s/p right nephrectomy, and HTN who presents to the ER with abdominal pain. He is getting a workup for a pancreatic head density. He was found to have an obstructing CBD stone. I was called to evaluate him for CRISS. He has a baseline creatinine of about 1.7. He complains of decreased appetite. Pt also has developed jaundice. He has has several episodes of vomiting. He denies dysuria or hematuria. - History Source History Provided By: Patient, Medical Record - Past Medical History Cardio/Vascular: Yes: Aortic Stenosis (Post TAVR at [facility] in 2015), CAD (s/p cardiac stent/ PCI 1995), HTN, Hyperlipdemia, Other Gastrointestinal: No: Irritable Bowel Disease Hepatobiliary: Yes: Cholelithiasis Renal/: Yes: Renal Inusuff, Cancer (Renal CA ), Renal Calculi, Other ( urethral stricture s/p cystoscopy, nephrectomy for RCC) Heme/Onc: Yes: Other (renal cell cancer) - Past Surgical History Past Surgical History: Yes: Nephrectomy, Stent, Valve Replacement (TAVR) - Alcohol/Substance Use Hx Alcohol Use: No History of Substance Use: reports: None - Smoking History Smoking history: Never smoked Have you smoked in the past 12 months: No - Social History Usual Living Arrangement: With Spouse ADL: Independent 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 History of Recent Travel: No Home Medications - Allergies Allergies/Adverse Reactions: Allergies Allergy/AdvReac Type Severity Reaction Status Date / Time Penicillins Allergy Verified 08/06/16 15:20 - Home Medications Home Medications: Ambulatory Orders Aspirin Coated [Ecotrin -] 81 mg PO DAILY 04/19/14 Montelukast Na [Singulair -] 10 mg PO HS 12/02/15 Atorvastatin Ca [Lipitor] 40 mg PO HS 05/13/16 Finasteride 5 mg PO DAILY 05/13/16 [place]-3 Fatty Acids [[place]-3] 1,500 mg PO 08/06/16 Family Disease History - Family Disease History Family Disease History: Other: Father ( 80's unclear cause), Mother ( 80 's CVA/[place]), Brother (1 brother CHF, 1 brother stomach cancer) Review of Systems - Review of Systems Constitutional: reports: Malaise Eyes: reports: No Symptoms HENT: reports: No Symptoms Neck: reports: No Symptoms Cardiovascular: reports: No Symptoms Respiratory: reports: SOB on Exertion Gastrointestinal: reports: Abdominal Pain, Vomiting Genitourinary: reports: No Symptoms Musculoskeletal: reports: No Symptoms Integumentary: reports: Change in Color Neurological: reports: No Symptoms Endocrine: reports: No Symptoms Hematology/Lymphatic: reports: No Symptoms Psychiatric: reports: No Symptoms Physical Exam Vital Signs: Vital Signs Temperature 98.5 F 08/07/16 10:00 Pulse Rate 82 08/07/16 10:00 Respiratory Rate 20 08/07/16 10:00 Blood Pressure 101/52 08/07/16 10:00 O2 Sat by Pulse Oximetry (%) 95 08/07/16 01:34 Constitutional: Yes: Calm Eyes: Yes: Sclera Icterus Neck: Yes: Supple Cardiovascular: Yes: S1, S2 Respiratory: Yes: Diminished Gastrointestinal: Yes: Soft Renal/: Yes: WNL Musculoskeletal: Yes: WNL Edema: No Integumentary: Yes: Jaundice Neurological: Yes: Oriented Psychiatric: Yes: Oriented Labs: CBC, BMP 08/07/16 09:00 08/07/16 06:00 Laboratory Tests 12/08/14 09/03/15 11/23/15 07:30 08:01 07:00 WBC Hgb Plt Count Sodium Potassium Chloride Carbon Dioxide Anion Gap BUN Creatinine 1.6 H 1.5 H 1.7 H Creat Clearance w eGFR Total Bilirubin AST ALT Alkaline Phosphatase 11/26/15 05/13/16 07/17/16 09:48 16:44 16:50 WBC Hgb Plt Count Sodium Potassium Chloride Carbon Dioxide Anion Gap BUN Creatinine 1.6 H 1.6 H 1.6 H Creat Clearance w eGFR Total Bilirubin AST ALT Alkaline Phosphatase 08/06/16 08/06/16 08/07/16 16:51 16:51 06:00 WBC 11.9 H D 5.7 D Hgb 10.7 L 10.2 L Plt Count 135 61 L D Sodium Potassium Chloride Carbon Dioxide Anion Gap BUN Creatinine 3.3 H D Creat Clearance w eGFR Total Bilirubin 9.7 H D AST 114 H D ALT 87 H D Alkaline Phosphatase 1048 H D 08/07/16 08/07/16 06:00 09:00 WBC 8.3 D Hgb 10.7 L Plt Count 60 L Sodium 140 Potassium 4.0 Chloride 105 Carbon Dioxide 18 L Anion Gap 17 H BUN 49 H Creatinine 3.9 H Creat Clearance w eGFR 14.70 Total Bilirubin 8.9 H AST 95 H ALT 66 D Alkaline Phosphatase 1007 H Imaging - Results Chest X-ray: Report Reviewed Ultrasound: Report Reviewed Problem List - Problems (1) CAD (coronary artery disease) Code(s): I25.10 - ATHSCL HEART DISEASE OF [place] CORONARY ARTERY W/O ANG PCTRS Qualifiers: Coronary Disease-Associated Artery/Lesion type: unspecified vessel or lesion type [place] vs. transplanted heart: [place] heart Associated angina: without angina Qualified Code(s): I25.10 - Atherosclerotic heart disease of [place] coronary artery without angina pectoris (2) Calculus of common duct with obstruction Code(s): K80.51 - CALCULUS OF BILE DUCT W/O CHOLANGITIS OR CHOLECYST W OBST (3) Choledocholithiasis Code(s): K80.50 - CALCULUS OF BILE DUCT W/O CHOLANGITIS OR CHOLECYST W/O OBST (4) Renal cancer Code(s): C64.9 - MALIGNANT NEOPLASM OF UNSP KIDNEY, EXCEPT RENAL PELVIS Qualifiers: Laterality: right Qualified Code(s): C64.1 - Malignant neoplasm of right kidney, except renal pelvis (5) CRISS (acute kidney injury) Code(s): N17.9 - ACUTE KIDNEY FAILURE, UNSPECIFIED (6) CKD (chronic kidney disease) Code(s): N18.9 - CHRONIC KIDNEY DISEASE, UNSPECIFIED Assessment/Plan Current Medications Generic Name Dose Route Start Last Admin Trade Name Freq PRN Reason Stop Dose Admin Dextrose/Sodium Chloride 1,000 mls @ 100 mls/hr 08/07/16 09:55 08/07/16 11:29 D5-1/2ns - IV 100 mls/hr ASDIR SUBHA Administration Ertapenem 0.5 gm/ Sodium 50 mls @ 100 mls/hr 08/07/16 11:00 08/07/16 11:29 Chloride IVPB 100 mls/hr DAILY SUBHA Administration Protocol Morphine Sulfate 1 mg 08/07/16 08:45 08/07/16 09:43 Morphine Injection - IVPUSH 1 mg Q4H PRN Administration PAIN Impression 1. CKD stage 3 2. CRISS 3. choledocholithiasis 4. CAD 5. hx of Renal Cell Cancer s/p nephroectomy 6. aortic stenosis Plan - cont with fluids - repeat labs in am - will order renal ultrasound to r/o obstruction - send ua, urine lytes and urine creatinine - pt going today for ERCP Dr Medina
[2016-08-07] MEDS ORDERED: MIDAZOLAM HCL 5 MG/1 ML Single Dose Vial ONE (15:48)
--- NOTE | 2016-08-07 16:16 | PN ---
Progress Note (short form) - Note Progress Note: GI Procedure NOte: Please see scanned ERCP report. After a stone was found in the proximal common bile duct a balloon sphincteroplasty was performed and a 7Fr x 10cm stent was placed reaching proximal to the stone. Dried pus was emanating from the papilla at the start of the procedure. The patient was extubated following the procedure but had to be reintubated. I discussed the case with the family and Dr Goff.
[2016-08-07] MEDS ORDERED: DEXTROSE 5%-LACTATED RINGERS 1,000 ML IV SCH (16:30)
[2016-08-07] MEDS ORDERED: SODIUM CHLORIDE 1,000 ML IV SCH (16:30)
[2016-08-07] MEDS ORDERED: LORAZEPAM CARPU-JECT 2 MG/ML DISP.SYRIN ONE (16:31)
[2016-08-07] MEDS ORDERED: MIDAZOLAM HCL 2 MG/2 ML SINGLE DOSE VIAL IVPUSH ONE (16:45)
[2016-08-07] MEDS ORDERED: MIDAZOLAM 100 MG in SODIUM CHLORIDE 100 ML IVPB SCH (16:45)
[2016-08-07] MEDS: DOPAMINE 400 MG/D5W - 250 ML IVPB SCH (17:02)
--- NOTE | 2016-08-07 17:10 | EKG ---
Test Reason : Blood Pressure : / mmHG Vent. Rate : 095 BPM Atrial Rate : 095 BPM P-R Int : 152 ms QRS Dur : 148 ms QT Int : 388 ms P-R-T Axes : -25 054 205 degrees QTc Int : 487 ms NORMAL SINUS RHYTHM LEFT BUNDLE BRANCH BLOCK ABNORMAL ECG WHEN COMPARED WITH ECG OF 06-AUG-2016 18:49, NO SIGNIFICANT CHANGE WAS FOUND Confirmed by LAURA FLORES MD ([id number]) on 08/07/2016 5:09:54 PM Referred By: Confirmed By:LAURA FLORES MD
--- NOTE | 2016-08-07 17:12 | EKG ---
Test Reason : Blood Pressure : / mmHG Vent. Rate : 073 BPM Atrial Rate : 073 BPM P-R Int : 160 ms QRS Dur : 160 ms QT Int : 446 ms P-R-T Axes : 003 053 202 degrees QTc Int : 491 ms NORMAL SINUS RHYTHM LEFT BUNDLE BRANCH BLOCK ABNORMAL ECG WHEN COMPARED WITH ECG OF 06-APR-2014 03:04, PREMATURE VENTRICULAR COMPLEXES ARE NO LONGER PRESENT LEFT BUNDLE BRANCH BLOCK IS NOW PRESENT Confirmed by MARK SCOTT, LAURA ([id number]) on 08/07/2016 5:11:42 PM Referred By: Confirmed By:LAURA FLORES MD
--- NOTE | 2016-08-07 17:18 | CONSULT ---
Consult Consult Specialty:: Surgery Reason for Consultation:: Drainage from umbilicus - History of Present Illness History of Present Illness: 85 male presents for shaking and chills Found to have elevated bilirubin and large stone in CBD S/P ERCP with stent by GI Currently intubated Consulted for drainage from umbilical wound that has been present for some time - History Source History Provided By: Medical Record Limitations to Obtaining History: Intubated - Past Medical History Cardio/Vascular: Yes: Aortic Stenosis (Post TAVR at [facility] in 2015), CAD (s/p cardiac stent/ PCI 1995), HTN, Hyperlipdemia, Other Gastrointestinal: No: Irritable Bowel Disease Hepatobiliary: Yes: Cholelithiasis Renal/: Yes: Renal Inusuff, Cancer (Renal CA ), Renal Calculi, Other ( urethral stricture s/p cystoscopy, nephrectomy for RCC) - Past Surgical History Past Surgical History: Yes: Nephrectomy, Stent, Valve Replacement (TAVR) - Alcohol/Substance Use Hx Alcohol Use: No History of Substance Use: reports: None - Smoking History Smoking history: Never smoked Have you smoked in the past 12 months: No - Social History Usual Living Arrangement: With Spouse ADL: Independent 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 History of Recent Travel: No Home Medications - Allergies Allergies/Adverse Reactions: Allergies Allergy/AdvReac Type Severity Reaction Status Date / Time Penicillins Allergy Verified 08/06/16 15:20 - Home Medications Home Medications: Ambulatory Orders Aspirin Coated [Ecotrin -] 81 mg PO DAILY 04/19/14 Montelukast Na [Singulair -] 10 mg PO HS 12/02/15 Atorvastatin Ca [Lipitor] 40 mg PO HS 05/13/16 Finasteride 5 mg PO DAILY 05/13/16 [place]-3 Fatty Acids [[place]-3] 1,500 mg PO 08/06/16 Family Disease History - Family Disease History Family Disease History: Other: Father ( 80's unclear cause), Mother ( 80 's CVA/[place]), Brother (1 brother CHF, 1 brother stomach cancer) Review of Systems Unable to obtain ROS, reason: Intubated Physical Exam Vital Signs: Vital Signs Temperature 98.5 F 08/07/16 10:00 Pulse Rate 82 08/07/16 10:00 Respiratory Rate 20 08/07/16 10:00 Blood Pressure 101/52 08/07/16 10:00 O2 Sat by Pulse Oximetry (%) 95 08/07/16 09:00 Cardiovascular: Yes: Regular Rate and Rhythm Respiratory: Yes: Diminished Gastrointestinal: Yes: Soft, Other (clear drainage from umbilicus with + foul odor. mild erythema and local skin excoriation) Labs: CBC, BMP 08/07/16 09:00 08/07/16 06:00 Problem List - Problems (1) Umbilical discharge Code(s): R19.8 - OTH SYMPTOMS AND SIGNS INVOLVING THE DGSTV SYS AND ABDOMEN Assessment/Plan 85 male with chronic umbilical discharge Will likely need drainage and exploration at some point However, currently septic appearing from likely cholangitis Will need supportive care Possible IR drainage of gallbladder Antibiotics
[2016-08-07] MEDS ORDERED: SODIUM CHLORIDE 500 ML IV STA (20:18)
[2016-08-07 20:30] LABS: ARTERIAL BLD GAS O2 SATURATION 99.4 % (90-98.9); ARTERIAL BLOOD GAS BASE EXCESS -8.6 meq/l (-2-2)
[2016-08-07 20:31] LABS: ALLENS TEST POSITIVE; ART PUNCT SITE LEFT RADIAL; LPM/O2% 100%; MECH. VENT. YES; PT. ON O2? YES; TYPE OF O2 MECH VENT; VENT RATE 12; VT/PRESS 500
[2016-08-07 20:32] LABS: ARTERIAL BLOOD GAS HCO3 16.8 meq/L (22-26); ARTERIAL BLOOD GAS pH 7.29 (7.35-7.45)
--- NOTE | 2016-08-07 20:50 | CONSULT ---
Consult Consult Specialty:: Pulmonary Critical Care Reason for Consultation:: S/p ERCP with Failed Intra-op Extubation - History of Present Illness Chief Complaint: S/p ERCP with balloon sphincterotomy and stent placement with failed post-procedure extubation necessitating re-intubation for apnea History of Present Illness: This is an 85 y/o male with pmhx significant for renal CA S/P right nephrectomy , HTN, CAD S/P PCI/stent (1995) and S/P TAVR (at [facility] in 2015 - followed by Dr. Aubrey Vieyra) presents with an abnormal MRI of abdomen showing density in the head of pancreas, large distal CBD stone and dilated CBD and labs c/w cholangitis. Pt taken to the Endoscopy Suite today and had an ERCP with balloon sphinctertomy and stent placement. Pt tolerated procedure well and was extubated however pt was apneic and re-intubated. Pt then transferred to ICU for further medical care. In ICU pt was given NS bolus of 500cc given he was requiring dopamine for pressor support and tachycardic upon arrival. Labs sent and drawn. ABG obtained and revealed metabolic acidosis and severe A-a gradient calculated to be ~500. Peep increased to 5 and RR increased to 20 to help acidosis. - History Source History Provided By: Medical Record Limitations to Obtaining History: Clinical Condition - Past Medical History Cardio/Vascular: Yes: Aortic Stenosis (Post TAVR at [facility] in 2015), CAD (s/p cardiac stent/ PCI 1995), HTN, Hyperlipdemia, Other Gastrointestinal: No: Irritable Bowel Disease Hepatobiliary: Yes: Cholelithiasis Renal/: Yes: Renal Inusuff, Cancer (Renal CA ), Renal Calculi, Other ( urethral stricture s/p cystoscopy, nephrectomy for RCC) - Past Surgical History Past Surgical History: Yes: Nephrectomy, Stent, Valve Replacement (TAVR) - Alcohol/Substance Use Hx Alcohol Use: No History of Substance Use: reports: None - Smoking History Smoking history: Never smoked Have you smoked in the past 12 months: No - Social History Usual Living Arrangement: With Spouse ADL: Independent 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 History of Recent Travel: No Home Medications - Allergies Allergies/Adverse Reactions: Allergies Allergy/AdvReac Type Severity Reaction Status Date / Time Penicillins Allergy Verified 08/06/16 15:20 - Home Medications Home Medications: Ambulatory Orders Aspirin Coated [Ecotrin -] 81 mg PO DAILY 04/19/14 Montelukast Na [Singulair -] 10 mg PO HS 12/02/15 Atorvastatin Ca [Lipitor] 40 mg PO HS 05/13/16 Finasteride 5 mg PO DAILY 05/13/16 [place]-3 Fatty Acids [[place]-3] 1,500 mg PO 08/06/16 Family Disease History - Family Disease History Family Disease History: Other: Father ( 80's unclear cause), Mother ( 80 's CVA/[place]), Brother (1 brother CHF, 1 brother stomach cancer) Physical Exam Vital Signs: Vital Signs Temperature 99.4 F 08/07/16 19:44 Pulse Rate 112 H 08/07/16 19:44 Respiratory Rate 25 H 08/07/16 19:59 Blood Pressure 99/50 08/07/16 19:44 O2 Sat by Pulse Oximetry (%) 100 08/07/16 19:35 Constitutional: Yes: Well Nourished, No Distress Eyes: Yes: Conjunctiva Clear, PERRL HENT: Yes: WNL, Atraumatic, Normocephalic Neck: Yes: Supple, Trachea Midline Cardiovascular: Yes: Tachycardia, S1, S2 Respiratory: Yes: Diminished, Mechanically Ventilated Gastrointestinal: Yes: Soft, Hypoactive Bowel Sounds, Other (erythema to umbilicus) ...Rectal Exam: Yes: Deferred Renal/: Yes: Stone Present, Other (retracted penis) Extremities: Yes: WNL Edema: No Peripheral Pulses WNL: Yes Integumentary: Yes: Petechiae (B/L upper eye lids), Pressure Ulcer (Stage 1 to sacrum), Skin Tear (Sacrum) Neurological: Yes: Other (Sedated) Labs: CBC, BMP 08/07/16 09:00 08/07/16 06:00 CBCD WBC 8.3 K/mm3 (4.0-10.0) D 08/07/16 09:00 RBC 3.65 M/mm3 (4.00-5.60) L 08/07/16 09:00 Hgb 10.7 GM/dL (11.7-16.9) L 08/07/16 09:00 Hct 32.4 % (35.4-49) L 08/07/16 09:00 MCV 88.8 fl (80-96) 08/07/16 09:00 MCHC 33.1 g/dl (32.0-35.9) 08/07/16 09:00 RDW 16.9 % (11.9-15.9) H 08/07/16 09:00 Plt Count 60 K/MM3 (134-434) L 08/07/16 09:00 MPV 9.9 fl (7.5-11.1) 08/07/16 09:00 CMP Sodium 140 mmol/L (136-145) 08/07/16 06:00 Potassium 4.0 mmol/L (3.5-5.1) 08/07/16 06:00 Chloride 105 mmol/L (98-107) 08/07/16 06:00 Carbon Dioxide 18 mmol/L (21-32) L 08/07/16 06:00 Anion Gap 17 (8-16) H 08/07/16 06:00 BUN 49 mg/dL (7-18) H 08/07/16 06:00 Creatinine 3.9 mg/dL (0.7-1.3) H 08/07/16 06:00 Creat Clearance w eGFR 14.70 (>60) 08/07/16 06:00 Random Glucose 54 mg/dL (74-106) L D 08/07/16 06:00 Calcium 7.4 mg/dL (8.5-10.1) L 08/07/16 06:00 Total Bilirubin 8.9 mg/dL (0.2-1.0) H 08/07/16 06:00 AST 95 U/L (15-37) H 08/07/16 06:00 ALT 66 U/L (12-78) D 08/07/16 06:00 Alkaline Phosphatase 1007 U/L (45-117) H 08/07/16 06:00 Total Protein 4.6 g/dl (6.4-8.2) L D 08/07/16 06:00 Albumin 2.0 g/dl (3.4-5.0) L D 08/07/16 06:00 Imaging - Results Chest X-ray: Image Reviewed (Poor inspiratory result; Mediastinal shift to right ; air bronchogram to L lingula; silhouette sign to RML) Problem List - Problems (1) CRISS (acute kidney injury) Code(s): N17.9 - ACUTE KIDNEY FAILURE, UNSPECIFIED (2) CAD (coronary artery disease) Code(s): I25.10 - ATHSCL HEART DISEASE OF [place] CORONARY ARTERY W/O ANG PCTRS Qualifiers: Coronary Disease-Associated Artery/Lesion type: unspecified vessel or lesion type [place] vs. transplanted heart: [place] heart Associated angina: without angina Qualified Code(s): I25.10 - Atherosclerotic heart disease of [place] coronary artery without angina pectoris (3) CKD (chronic kidney disease) Code(s): N18.9 - CHRONIC KIDNEY DISEASE, UNSPECIFIED (4) Renal cancer Code(s): C64.9 - MALIGNANT NEOPLASM OF UNSP KIDNEY, EXCEPT RENAL PELVIS Qualifiers: Laterality: right Qualified Code(s): C64.1 - Malignant neoplasm of right kidney, except renal pelvis (5) S/P ERCP Code(s): Z98.890 - OTHER SPECIFIED POSTPROCEDURAL STATES (6) Biliary sepsis Code(s): K83.0 - CHOLANGITIS Assessment/Plan A: This is an 85 y/o male with a past medical history significant for renal CA S /P right nephrectomy, HTN, CAD S/P PCI/stent (1995) and S/P TAVR (at [facility] in 2016 - followed by Dr. Aubrey Vieyra) presents with an abnormal MRI of abdomen showing density in the head of pancrease, large distal CBD stone and dilated CBD. Pt underwent an ERCP with balloon sphincterotomy and stent placement with post-procedure failed extubation necessitating reintubation and transfer to ICU for further medical care. P: -Continue mechanical ventilation -Repeat ABGx1 to assess for response to recent vent changes and adjust vent as necessary -Vent bundle -Sedation for goal RASS (-)2-(-)3 -Sedation holiday in am for Spontaneous Breathing trial to assess for extubation -D5LR @ 150cc/hr -NS 500cc bolus x1 and assess response; may need additional fluid; will trend serial lactate -Cont dopa for pressor support; if increasing dosage despite fluid resuscitation , will most likely need central line and norepi for biliary septic shock -Cont antibiotics as per ID -Cont to trend cbc as pt with thrombocytopenia -Trend bun/creat -stone to BSD and trend hourly urine output -Pepcid for prophylaxis -SCD for dvt prophylaxis Thank you for this interesting consult. Pt is critically ill. CCT 45 mins not including procedures
[2016-08-07] MEDS: DEXTROSE 5%-LACTATED RINGERS 1,000 ML IV SCH (20:53)
[2016-08-07 21:03] LABS: MCH 28.9 pg (25.7-33.7); MCHC 32.5 g/dl (32.0-35.9); MEAN PLT VOLUME 10.9 fl (7.5-11.1); PLATELET COUNT 56 K/MM3 (134-434); WHITE BLOOD COUNT 29.3 K/mm3 (4.0-10.0)
[2016-08-07 21:27] LABS: INR 1.26 (0.82-1.09); PROTHROMBIN TIME (PATIENT) 13.9 SEC (9.98-11.88)
[2016-08-07 21:40] LABS: METAMYELOCYTE 5 % (0-2)
[2016-08-07] MEDS ORDERED: MEROPENEM 500 MG VIAL (RESTRICTED TO ID) IVPB SCH ×2 (22:00)
[2016-08-07 22:04] LABS: BILIRUBIN,DIRECT 8.2 mg/dL (0.0-0.2); BILIRUBIN,TOTAL 9.9 mg/dL (0.2-1.0); CALCIUM 7.5 mg/dL (8.5-10.1); COCKROFT - GAULT 14.28; CREATININE 4.4 mg/dL (0.7-1.3); MAGNESIUM 1.9 mg/dL (1.8-2.4); PHOSPHOROUS 3.3 mg/dL (2.5-4.9); TOT PROT 4.9 g/dl (6.4-8.2)
[2016-08-07 22:16] LABS: TROPONIN I 0.52 ng/ml (0.00-0.05)
[2016-08-07] MEDS ORDERED: SODIUM CHLORIDE 1,000 ML IV STA (22:30)
[2016-08-07] MEDS: MEROPENEM 500 MG in DEXTROSE 5%-WATER - 100 ML IVPB SCH (22:54)
[2016-08-07] MEDS: FAMOTIDINE 20 MG/50 ML IVPB 50 ML IVPB SCH (22:55)
[2016-08-08] MEDS ORDERED: SODIUM CHLORIDE 1,000 ML IV STA (00:32)
[2016-08-08 00:34] LABS: ARTERIAL BLD GAS O2 SATURATION 99.4 % (90-98.9); ARTERIAL BLOOD GAS BASE EXCESS -9.2 meq/l (-2-2)
[2016-08-08 00:35] LABS: ALLENS TEST POSITIVE; ART PUNCT SITE LEFT RADIAL; ARTERIAL BLOOD GAS pH 7.31 (7.35-7.45); LPM/O2% 70%; MECH. VENT. YES; PT. ON O2? YES; TYPE OF O2 MECH VENT; VENT RATE 20; VT/PRESS 500
[2016-08-08 00:36] LABS: ARTERIAL BLOOD GAS HCO3 15.7 meq/L (22-26)
[2016-08-08] MEDS: DEXTROSE 5%-LACTATED RINGERS 1,000 ML IV SCH (01:37)
[2016-08-08 02:20] LABS: URINE APPEARANCE CLOUDY; URINE BILIRUBIN NEGATIVE (NEGATIVE); URINE COLOR AMBER; URINE GLUCOSE (UA) NEGATIVE (NEGATIVE); URINE KETONE NEGATIVE (NEGATIVE); URINE NITRITE NEGATIVE (NEGATIVE); URINE UROBILINOGEN NEGATIVE E.U./dl (0.2-1.0)
[2016-08-08 02:26] LABS: URINE BLOOD 3+ (NEGATIVE); URINE LEUK ESTERASE TRACE (NEGATIVE); URINE PROTEIN 1+ (NEGATIVE)
[2016-08-08 02:30] LABS: URINE BACTERIA MANY /hpf (NONE SEEN); URINE RBC 594 /hpf (0-3); URINE WBC 20 /hpf (3-5)
[2016-08-08 03:01] LABS: TROPONIN I 1.41 ng/ml (0.00-0.05)
[2016-08-08] MEDS ORDERED: MAGNESIUM SULF 50% (8.12 MEQ/2 ML-1 GM VIAL) ONE (04:15)
[2016-08-08] MEDS ORDERED: AMIODARONE HCL 150 MG/3 ML VIAL ONE (04:16)
[2016-08-08] MEDS ORDERED: AMIODARONE HCL INJECTION 150 MG in DEXTROSE 5%-WATER - 97 ML IVPB ONE (04:19)
[2016-08-08] MEDS ORDERED: HEPARIN NA (PORCINE) 5,000 UNITS/ML 1ML VIAL IVPUSH PRN ×2 (04:19)
[2016-08-08] MEDS ORDERED: HEPARIN - 25,000 UNIT in SODIUM CHLORIDE 495 ML IV SCH (04:30)
[2016-08-08] MEDS ORDERED: AMIODARONE HCL INJECTION 450 MG in DEXTROSE 5%-WATER - 241 ML IVPB SCH ×2 (04:30→10:30)
[2016-08-08] MEDS ORDERED: MAGNESIUM SULF 50% (8.12 MEQ/2 ML-1 GM VIAL) IVPB ONE (04:39)
[2016-08-08] MEDS ORDERED: DEXTROSE 5%-LACTATED RINGERS 1,000 ML IV SCH (06:00)
--- NOTE | 2016-08-08 06:11 | PROC ---
Procedure Note Procedure: Right IJ TLC Placement Central Line Insertion Indication: Sepsis, Vasopressor Risks and Benefits Explained: Yes Consent on Chart: Yes (Consent obtained via telephone) Central Line: Triple Lumen Catheter Anesthesia: 1% Lidocaine Sterile Technique: Yes Ultrasound Guided Assistance: Yes Position: Right Internal Jugular Post Insertion: Yes: Bilateral Breath Sounds, Bilateral Chest Expansion, Chest X-Ray Ordered Sterile Dressing Applied: Yes Remarks: TLC inserted to 16cm.
[2016-08-08 06:21] LABS: MCH 28.9 pg (25.7-33.7); MCHC 32.4 g/dl (32.0-35.9); MEAN PLT VOLUME 11.2 fl (7.5-11.1); PLATELET COUNT 48 K/MM3 (134-434); RDW 16.9 % (11.9-15.9)
[2016-08-08 06:50] LABS: ALBUMIN 1.8 g/dl (3.4-5.0); BILIRUBIN,TOTAL 9.3 mg/dL (0.2-1.0); CREATININE 4.4 mg/dL (0.7-1.3); TOT PROT 4.8 g/dl (6.4-8.2)
[2016-08-08 06:55] LABS: INR 1.34 (0.82-1.09); PROTHROMBIN TIME (PATIENT) 14.8 SEC (9.98-11.88)
[2016-08-08 06:57] LABS: BILIRUBIN,DIRECT 7.7 mg/dL (0.0-0.2)
[2016-08-08 07:03] LABS: C-REACTIVE PROTEIN 21.5 MG/DL (0.00-0.3)
[2016-08-08] MEDS: NOREPINEPHRINE BITARTRATE 8,000 MCG in DEXTROSE 5%-WATER - 492 ML IV SCH (07:07)
--- NOTE | 2016-08-08 07:23 | PN ---
Physical Exam: SUBJECTIVE: Patient seen and examined sedated and intubated. s/p ERCP. amiodarone dc'd, heparin gtt dc'd - were started overnight due to possible Vtach OBJECTIVE: Vital Signs Period Temp Pulse Resp BP Sys/Hinkle Pulse Ox Last 24 Hr 98 F-99.4 F 80-118 8-25 70-108/34-65 94-100 HEAD: Normal with no signs of trauma. EYES: constricted pupils, sclera anicteric, conjunctiva clear. No ptosis. ENT: nares patent, oropharynx with endotracheal tube and OG tube, moist mucous membranes. NECK: Trachea midline LUNGS: Breath sounds equal, clear to auscultation bilaterally, no wheezes, no crackles, no accessory muscle use. VENT: Fio2 70% HEART: Regular rate and rhythm, S1, S2 without murmur, rub or gallop. ABDOMEN: Soft, nondistended, normoactive bowel sounds, periumbilical erythema, demuted skin laterally along skin fold, scant serous discharge EXTREMITIES: 2+ pulses in b/l radial and DP, warm, well-perfused, no edema. SKIN: Warm, jaundiced. Laboratory Results - last 24 hr 08/07/16 08/07/16 08/07/16 06:00 06:00 06:00 WBC 5.7 D RBC 3.45 L Hgb 10.2 L Hct 30.4 L MCV 88.1 MCHC 33.7 RDW 16.9 H Plt Count 61 L D MPV 9.7 Neutrophils % 82.0 Lymphocytes % 2.0 L D Monocytes % 2.0 L Eosinophils % Basophils % 1.0 Band Neutrophils 4.0 D Metamyelocytes 8 H Myelocytes 1 Differential Comment Manual diff done Platelet Estimate Decreased INR 1.19 H PTT (Actin FS) 33.3 Fibrinogen Fibrin Degrad Products Puncture Site ABG pH ABG pCO2 at Pt Temp ABG pO2 at Pt Temp ABG HCO3 ABG O2 Sat (Measured) ABG O2 Content ABG Base Excess Marvin Test O2 Delivery Device Oxygen Flow Rate Vent Mode Vent Rate Mechanical Rate PEEP Pressure Support Vent Sodium Potassium Chloride Carbon Dioxide Anion Gap BUN Creatinine Creat Clearance w eGFR Random Glucose Lactic Acid Calcium Phosphorus Magnesium Total Bilirubin Direct Bilirubin AST ALT Alkaline Phosphatase Creatine Kinase Troponin I C-Reactive Protein Total Protein Albumin Total Amylase Lipase Urine Color Urine Appearance Urine pH Urine Protein Urine Glucose (UA) Urine Ketones Urine Blood Urine Nitrite Urine Bilirubin Urine Urobilinogen Ur Leukocyte Esterase Urine RBC Urine WBC Ur Epithelial Cells Urine Bacteria Ur Random Sodium Ur Random Potassium Ur Random Chloride Urine Creatinine Random Vancomycin Blood Type Antibody Screen 08/07/16 08/07/16 08/07/16 06:00 09:00 11:20 WBC 8.3 D RBC 3.65 L Hgb 10.7 L Hct 32.4 L MCV 88.8 MCHC 33.1 RDW 16.9 H Plt Count 60 L MPV 9.9 Neutrophils % 97.3 H Lymphocytes % 1.1 L D Monocytes % 0.9 L Eosinophils % 0.5 Basophils % 0.2 Band Neutrophils Metamyelocytes Myelocytes Differential Comment Platelet Estimate INR PTT (Actin FS) Fibrinogen 336.0 Fibrin Degrad Products >10 & <40 Puncture Site ABG pH ABG pCO2 at Pt Temp ABG pO2 at Pt Temp ABG HCO3 ABG O2 Sat (Measured) ABG O2 Content ABG Base Excess Marvin Test O2 Delivery Device Oxygen Flow Rate Vent Mode Vent Rate Mechanical Rate PEEP Pressure Support Vent Sodium 140 Potassium 4.0 Chloride 105 Carbon Dioxide 18 L Anion Gap 17 H BUN 49 H Creatinine 3.9 H Creat Clearance w eGFR 14.70 Random Glucose 54 L D Lactic Acid Calcium 7.4 L Phosphorus Magnesium Total Bilirubin 8.9 H Direct Bilirubin AST 95 H ALT 66 D Alkaline Phosphatase 1007 H Creatine Kinase Troponin I C-Reactive Protein Total Protein 4.6 L D Albumin 2.0 L D Total Amylase Lipase Urine Color Urine Appearance Urine pH Urine Protein Urine Glucose (UA) Urine Ketones Urine Blood Urine Nitrite Urine Bilirubin Urine Urobilinogen Ur Leukocyte Esterase Urine RBC Urine WBC Ur Epithelial Cells Urine Bacteria Ur Random Sodium Ur Random Potassium Ur Random Chloride Urine Creatinine Random Vancomycin Blood Type Antibody Screen 08/07/16 08/07/16 08/07/16 20:00 20:20 20:30 WBC 29.3 H D RBC 3.62 L Hgb 10.5 L Hct 32.2 L MCV 89.0 MCHC 32.5 RDW 17.0 H Plt Count 56 L MPV 10.9 D Neutrophils % 43.0 D Lymphocytes % 4.0 L D Monocytes % 6.0 D Eosinophils % Basophils % Band Neutrophils 33.0 H D Metamyelocytes 5 H D Myelocytes 9 H D Differential Comment Platelet Estimate INR 1.26 H PTT (Actin FS) Fibrinogen Fibrin Degrad Products Puncture Site Left radial ABG pH 7.29 L ABG pCO2 at Pt Temp 36.2 ABG pO2 at Pt Temp 151.0 H* ABG HCO3 16.8 L ABG O2 Sat (Measured) 99.4 H ABG O2 Content 14.3 L ABG Base Excess -8.6 L Marvin Test Positive O2 Delivery Device Mech vent Oxygen Flow Rate 100% Vent Mode A/c Vent Rate 12 Mechanical Rate Yes PEEP 5.0 Pressure Support Vent 500 Sodium Potassium Chloride Carbon Dioxide Anion Gap BUN Creatinine Creat Clearance w eGFR Random Glucose Lactic Acid Calcium Phosphorus Magnesium Total Bilirubin Direct Bilirubin AST ALT Alkaline Phosphatase Creatine Kinase Troponin I C-Reactive Protein Total Protein Albumin Total Amylase Lipase Urine Color Urine Appearance Urine pH Urine Protein Urine Glucose (UA) Urine Ketones Urine Blood Urine Nitrite Urine Bilirubin Urine Urobilinogen Ur Leukocyte Esterase Urine RBC Urine WBC Ur Epithelial Cells Urine Bacteria Ur Random Sodium Ur Random Potassium Ur Random Chloride Urine Creatinine Random Vancomycin Blood Type Antibody Screen 08/07/16 08/07/16 08/07/16 20:30 20:30 20:30 WBC RBC Hgb Hct MCV MCHC RDW Plt Count MPV Neutrophils % Lymphocytes % Monocytes % Eosinophils % Basophils % Band Neutrophils Metamyelocytes Myelocytes Differential Comment Platelet Estimate INR PTT (Actin FS) Fibrinogen Fibrin Degrad Products Puncture Site ABG pH ABG pCO2 at Pt Temp ABG pO2 at Pt Temp ABG HCO3 ABG O2 Sat (Measured) ABG O2 Content ABG Base Excess Marvin Test O2 Delivery Device Oxygen Flow Rate Vent Mode Vent Rate Mechanical Rate PEEP Pressure Support Vent Sodium 138 Potassium 4.3 Chloride 103 Carbon Dioxide 19 L Anion Gap 16 BUN 55 H Creatinine 4.4 H Creat Clearance w eGFR Random Glucose 122 H D Lactic Acid 2.779 H* Calcium 7.5 L Phosphorus 3.3 Magnesium 1.9 Total Bilirubin 9.9 H Direct Bilirubin 8.2 H AST 131 H D ALT 74 Alkaline Phosphatase 957 H Creatine Kinase 95 Troponin I 0.52 H D C-Reactive Protein Total Protein 4.9 L Albumin 2.0 L Total Amylase 76 Lipase 354 Urine Color Urine Appearance Urine pH Urine Protein Urine Glucose (UA) Urine Ketones Urine Blood Urine Nitrite Urine Bilirubin Urine Urobilinogen Ur Leukocyte Esterase Urine RBC Urine WBC Ur Epithelial Cells Urine Bacteria Ur Random Sodium Ur Random Potassium Ur Random Chloride Urine Creatinine Random Vancomycin Blood Type A POSITIVE Antibody Screen Negative 08/08/16 08/08/16 08/08/16 00:22 02:00 02:00 WBC RBC Hgb Hct MCV MCHC RDW Plt Count MPV Neutrophils % Lymphocytes % Monocytes % Eosinophils % Basophils % Band Neutrophils Metamyelocytes Myelocytes Differential Comment Platelet Estimate INR PTT (Actin FS) Fibrinogen Fibrin Degrad Products Puncture Site Left radial ABG pH 7.31 L ABG pCO2 at Pt Temp 32.4 L ABG pO2 at Pt Temp 178.0 H* D ABG HCO3 15.7 L ABG O2 Sat (Measured) 99.4 H ABG O2 Content 15.9 ABG Base Excess -9.2 L Marvin Test Positive O2 Delivery Device Mech vent Oxygen Flow Rate 70% Vent Mode A/c Vent Rate 20 Mechanical Rate Yes PEEP 5.0 Pressure Support Vent 500 Sodium Potassium Chloride Carbon Dioxide Anion Gap BUN Creatinine Creat Clearance w eGFR Random Glucose Lactic Acid Calcium Phosphorus Magnesium Total Bilirubin Direct Bilirubin AST ALT Alkaline Phosphatase Creatine Kinase 102 Troponin I 1.41 H* D C-Reactive Protein Total Protein Albumin Total Amylase Lipase Urine Color Urine Appearance Urine pH Urine Protein Urine Glucose (UA) Urine Ketones Urine Blood Urine Nitrite Urine Bilirubin Urine Urobilinogen Ur Leukocyte Esterase Urine RBC Urine WBC Ur Epithelial Cells Urine Bacteria Ur Random Sodium 127 Ur Random Potassium 12.4 Ur Random Chloride 129 Urine Creatinine Random Vancomycin Blood Type Antibody Screen 08/08/16 08/08/16 08/08/16 02:00 02:00 02:00 WBC RBC Hgb Hct MCV MCHC RDW Plt Count MPV Neutrophils % Lymphocytes % Monocytes % Eosinophils % Basophils % Band Neutrophils Metamyelocytes Myelocytes Differential Comment Platelet Estimate INR PTT (Actin FS) Fibrinogen Fibrin Degrad Products Puncture Site ABG pH ABG pCO2 at Pt Temp ABG pO2 at Pt Temp ABG HCO3 ABG O2 Sat (Measured) ABG O2 Content ABG Base Excess Marvin Test O2 Delivery Device Oxygen Flow Rate Vent Mode Vent Rate Mechanical Rate PEEP Pressure Support Vent Sodium Potassium Chloride Carbon Dioxide Anion Gap BUN Creatinine Creat Clearance w eGFR Random Glucose Lactic Acid 2.323 H* Calcium Phosphorus Magnesium Total Bilirubin Direct Bilirubin AST ALT Alkaline Phosphatase Creatine Kinase Troponin I C-Reactive Protein Total Protein Albumin Total Amylase Lipase Urine Color Talisha Urine Appearance Cloudy Urine pH 5.0 Urine Protein 1+ H Urine Glucose (UA) Negative Urine Ketones Negative Urine Blood 3+ H Urine Nitrite Negative Urine Bilirubin Negative Urine Urobilinogen Negative Ur Leukocyte Esterase Trace H Urine RBC 594 Urine WBC 20 Ur Epithelial Cells Rare Urine Bacteria Many Ur Random Sodium Ur Random Potassium Ur Random Chloride Urine Creatinine 30.4 Random Vancomycin Blood Type Antibody Screen 08/08/16 08/08/16 08/08/16 05:15 05:15 05:15 WBC RBC Hgb Hct MCV MCHC RDW Plt Count MPV Neutrophils % Lymphocytes % Monocytes % Eosinophils % Basophils % Band Neutrophils Metamyelocytes Myelocytes Differential Comment Platelet Estimate INR 1.34 H PTT (Actin FS) Fibrinogen Fibrin Degrad Products Puncture Site ABG pH ABG pCO2 at Pt Temp ABG pO2 at Pt Temp ABG HCO3 ABG O2 Sat (Measured) ABG O2 Content ABG Base Excess Marvin Test O2 Delivery Device Oxygen Flow Rate Vent Mode Vent Rate Mechanical Rate PEEP Pressure Support Vent Sodium 137 Potassium 4.9 Chloride 103 Carbon Dioxide 16 L Anion Gap 18 H BUN 52 H Creatinine 4.4 H Creat Clearance w eGFR 12.79 Random Glucose 128 H Lactic Acid Calcium 7.0 L Phosphorus Magnesium Total Bilirubin 9.3 H Direct Bilirubin 7.7 H AST 121 H ALT 67 Alkaline Phosphatase 803 H Creatine Kinase Troponin I C-Reactive Protein 21.5 H Total Protein 4.8 L Albumin 1.8 L Total Amylase 49 D Lipase 116 Urine Color Urine Appearance Urine pH Urine Protein Urine Glucose (UA) Urine Ketones Urine Blood Urine Nitrite Urine Bilirubin Urine Urobilinogen Ur Leukocyte Esterase Urine RBC Urine WBC Ur Epithelial Cells Urine Bacteria Ur Random Sodium Ur Random Potassium Ur Random Chloride Urine Creatinine Random Vancomycin 8.994 Blood Type Antibody Screen Active Medications Aspirin (Asa -) 162 mg PO DAILY SUBHA Last Admin: 08/08/16 09:54 Dose: Not Given Fentanyl (Sublimaze Injection -) 25 mcg IVPUSH [id number] PRN PRN Reason: PAIN Stop: 08/10/16 16:20 Last Admin: 08/07/16 17:38 Dose: 25 mcg Heparin Sodium (Porcine) (Heparin -) 1,000 unit IVPUSH PRN PRN PRN Reason: Heparin Midazolam HCl 100 mg/ Sodium (Chloride) 100 mls @ 3 mls/hr IVPB TITR SUBHA; 3 MG/ HR PRN Reason: Protocol Stop: 08/08/16 16:44 Last Admin: 08/07/16 17:05 Dose: 3 mls/hr Dopamine HCl/Dextrose (Dopamine 400 Mg/D5w -) 250 mls @ 16.01 mls/hr IVPB TITR SUBHA; 5 MCG/KG/MIN PRN Reason: Protocol Last Titration: 08/08/16 04:40 Dose: 7 mcg/kg/min Meropenem 500 mg/ Dextrose 100 mls @ 200 mls/hr IVPB BID SUBHA Last Admin: 08/08/16 09:53 Dose: 200 mls/hr Famotidine/Sodium Chloride (Pepcid 20 Mg Premixed Ivpb -) 50 mls @ 100 mls/hr IVPB DAILY SUBHA Last Admin: 08/08/16 09:53 Dose: 100 mls/hr Norepinephrine Bitartrate 8, (000 mcg/ Dextrose) 500 mls @ 18.75 mls/hr IV TITR SUBHA; 5 MCG/MIN PRN Reason: Protocol Last Admin: 08/08/16 07:07 Dose: 37.5 mls/hr Dextrose/Sodium Chloride (D5-Ns -) 1,000 mls @ 75 mls/hr IV ASDIR SUBHA Morphine Sulfate (Morphine Injection -) 1 mg IVPUSH Q4H PRN PRN Reason: PAIN Last Admin: 08/07/16 09:43 Dose: 1 mg ASSESSMENT/PLAN: 85 yr old man with HTN, aortic stenosis, CAD s/p stents, r-nephroctomy(renal ca) , pancreatic head density found to have choleluithaisis with obstructing CBD, s/ p ERCP with stent placement(unable to undergo sphincterectomy due to anticoagulation) complicated by septic shock requring ICU admission. Infectious Disease Septic shock with multi-organ failure likely secondary to cholangitis and gram neg bactermia(likley gallbladder as primary source) Abx tx: meropenem 500mg IVPB BID - Day 2 - topical antifungal cream to periumbical area Fluids: avoid fluid overload - D5-NS @75mls/hr Pressure suport: weaned off dopamine, will attempt to wean off norepi Goal MAP>65, CVP 8-12, current CVP 12. Labs: trend lactic acid, cbc - bld cx pending Consult: Dr. Boggs Cardiovascular Hypotensive, troponins trending up, with echo showing hypokensis and decreased LV function - likely secondary to demand ischemia and septic shock induced cardiomyopathy - trend troponins to establish peak, no indication for ASA or heparin drip as this is unlikely due to be ACS - maintain Goal MAP>65, CVP 8-12 consult: dr. ayala Renal oliguric CRISS/ATN due to sepsis induced hypoperfusion, on CKD stage 3 - IVF D5-NS @75ml/hr - monitor I&O, stone in place - renal dosing of medications - metabolic acidosis with anion gap, base deficit likely due to lactic acidosis consult: Dr. Medina Pulmonary acute hypoxic respiratory failure - on ventilatory support taper FiO2 to keep Spo2 >90% Gastrointestinal Cholangitis s/p ERCP with biliary stent placement trend LFT's consult: Dr. Thompson Hematological normocytic anemia - chronic, trend h/h, monitor for bleeding leucocytosis secondary to sepsis thrombocytopenia - likely due to sepsis, r./o DIC; trend fibrinogen and fibrin degradation products -- pt was on two anti-platelet agents, plavix and asa - currently held maintain platelet >20,000 Dermatological periumbical drainage - topical antifungal Dr Weems consulted for surgical eval; patient is high risk for operative intervention, recommend IR intervention for percutaneous drainage Dr. Carney consulted Neurological sedated DVT: heparin 5000 units SQ BID Diet: NPO Visit type - Emergency Visit Emergency Visit: No - New Patient This patient is new to me today: Yes Date on this admission: 08/08/16 - Critical Care Critical Care patient: Yes Total Critical Care Time (in minutes): 45 Critical Care Statement: The care of this patient involved high complexity decision making to prevent further life threatening deterioration of the patient 's condition and/or to evalute & treat vital organ system(s) failure or risk of failure.
--- NOTE | 2016-08-08 07:28 | PN ---
Progress Note, Physician Chief Complaint: ID 85 year old admitted with obstructive jaundice and cholangitis. Went to OR for ERCP yesterday. Operative note reviewed finding of biliary stone in CBD with stent placement. At present he is intubated with the requirement for levophed and dopamine. Meropenem added with the overnight the preliminary report from nursing staff that lab says gram negative rods in the blood. - Current Medication List Current Medications: Active Medications Aspirin (Asa -) 162 mg PO DAILY SUBHA Fentanyl (Sublimaze Injection -) 25 mcg IVPUSH [id number] PRN PRN Reason: PAIN Stop: 08/10/16 16:20 Last Admin: 08/07/16 17:38 Dose: 25 mcg Heparin Sodium (Porcine) (Heparin -) 1,000 unit IVPUSH PRN PRN PRN Reason: Heparin Heparin Sodium (Porcine) (Heparin -) 5,000 unit IVPUSH PRN PRN PRN Reason: Heparin Dextrose/Lactated Ringer's (D5-Lr -) 1,000 mls @ 125 mls/hr IV ASDIR SUBHA Last Admin: 08/08/16 07:08 Dose: 125 mls/hr Midazolam HCl 100 mg/ Sodium (Chloride) 100 mls @ 3 mls/hr IVPB TITR SUBHA; 3 MG/ HR PRN Reason: Protocol Stop: 08/08/16 16:44 Last Admin: 08/07/16 17:05 Dose: 3 mls/hr Dopamine HCl/Dextrose (Dopamine 400 Mg/D5w -) 250 mls @ 16.01 mls/hr IVPB TITR SUBHA; 5 MCG/KG/MIN PRN Reason: Protocol Last Titration: 08/08/16 04:40 Dose: 7 mcg/kg/min Meropenem 500 mg/ Dextrose 100 mls @ 200 mls/hr IVPB BID SUBHA Last Admin: 08/07/16 22:54 Dose: 200 mls/hr Famotidine/Sodium Chloride (Pepcid 20 Mg Premixed Ivpb -) 50 mls @ 100 mls/hr IVPB DAILY SUBHA Last Admin: 08/07/16 22:55 Dose: 100 mls/hr Amiodarone HCl 450 mg/ (Dextrose) 250 mls @ 33.33 mls/hr IVPB TITR SUBHA; 1 MG/ MIN PRN Reason: Protocol Stop: 08/08/16 10:29 Last Admin: 08/08/16 04:40 Dose: 33.33 mls/hr Heparin Sodium (Porcine) 25, (000 unit/ Sodium Chloride) 500 mls @ 20 mls/hr IV TITR SUBHA; 1,000 UNIT/HR PRN Reason: Protocol Last Admin: 08/08/16 04:45 Dose: 20 mls/hr Amiodarone HCl 450 mg/ (Dextrose) 250 mls @ 16.66 mls/hr IVPB TITR SUBHA; 0.5 MG/ MIN PRN Reason: Protocol Norepinephrine Bitartrate 8, (000 mcg/ Dextrose) 500 mls @ 18.75 mls/hr IV TITR SUBHA; 5 MCG/MIN PRN Reason: Protocol Last Admin: 08/08/16 07:07 Dose: 37.5 mls/hr Morphine Sulfate (Morphine Injection -) 1 mg IVPUSH Q4H PRN PRN Reason: PAIN Last Admin: 08/07/16 09:43 Dose: 1 mg - Objective Vital Signs: Vital Signs Temperature 99.4 F 08/08/16 02:06 Pulse Rate 108 H 08/08/16 04:12 Respiratory Rate 24 08/08/16 06:54 Blood Pressure 91/63 08/08/16 04:12 O2 Sat by Pulse Oximetry (%) 100 08/07/16 21:00 Constitutional: Yes: Other (INtubated) Neck: Yes: WNL, Supple Cardiovascular: Yes: Regular Rate and Rhythm, S1, S2. No: Murmur Respiratory: Yes: WNL, Regular, CTA Bilaterally. No: Rales, Rhonchi Gastrointestinal: Yes: WNL, Normal Bowel Sounds, Soft. No: Hepatomegaly, Splenomegaly, Tenderness, Tenderness, Rebound Extremities: No: Cold, Cool, Cyanosis Edema: No Integumentary: Yes: Jaundice Labs: CBC, BMP 08/08/16 05:15 INR, PTT INR 1.34 (0.82-1.09) H 08/08/16 05:15 Fibrinogen 336.0 mg/dL (238-498) 08/07/16 11:20 Problem List - Problems (1) Biliary sepsis Code(s): K83.0 - CHOLANGITIS (2) Bacteremia due to Gram-negative bacteria Code(s): R78.81 - BACTEREMIA (3) Thrombocytopenia Code(s): D69.6 - THROMBOCYTOPENIA, UNSPECIFIED Assessment/Plan Microbiology 08/06/16 18:30 Abdomen Gram Stain - Final Laboratory Tests 08/07/16 08/07/16 08/08/16 20:30 20:30 02:00 WBC 29.3 H D Hgb 10.5 L Plt Count 56 L Band Neutrophils 33.0 H D Metamyelocytes 5 H D Myelocytes 9 H D BUN Creatinine Creat Clearance w eGFR Lactic Acid 2.779 H* Total Bilirubin AST ALT Alkaline Phosphatase Troponin I 1.41 H* D C-Reactive Protein Albumin Random Vancomycin 08/08/16 08/08/16 08/08/16 02:00 05:15 05:15 WBC Hgb Plt Count Band Neutrophils Metamyelocytes Myelocytes BUN 52 H Creatinine 4.4 H Creat Clearance w eGFR 12.79 Lactic Acid 2.323 H* Total Bilirubin 9.3 H AST 121 H ALT 67 Alkaline Phosphatase 803 H Troponin I C-Reactive Protein 21.5 H Albumin 1.8 L Random Vancomycin 8.994 08/08/16 05:15 WBC Pending Hgb Pending Plt Count Pending Band Neutrophils Metamyelocytes Myelocytes BUN Creatinine Creat Clearance w eGFR Lactic Acid Total Bilirubin AST ALT Alkaline Phosphatase Troponin I C-Reactive Protein Albumin Random Vancomycin Assessment Severe sepsis syndrome Cholangitis Preliminary report of GNB in blood Respiratory failure TNI elevation ?sepsis related Low platlets from sepsis Acute on chronic kidney failure Fungal dermatitis of the umbilicus Plan For now continue Meropenem pending final cultures Apply topical antifungal cream to umbilicus 38 minutes spent providing critical care supervision Fred SCOTT
[2016-08-08 07:31] LABS: WHITE BLOOD COUNT 31.1 K/mm3 (4.0-10.0)
--- NOTE | 2016-08-08 09:16 | PN ---
Progress Note, Physician History of Present Illness: Post ERCP, stone retrieval and stent placement, currently in gram negative septic shock on pressors. Sedated and maintained on mechanical ventilation. - Current Medication List Current Medications: Active Medications Aspirin (Asa -) 162 mg PO DAILY SUBHA Fentanyl (Sublimaze Injection -) 25 mcg IVPUSH [id number] PRN PRN Reason: PAIN Stop: 08/10/16 16:20 Last Admin: 08/07/16 17:38 Dose: 25 mcg Heparin Sodium (Porcine) (Heparin -) 1,000 unit IVPUSH PRN PRN PRN Reason: Heparin Heparin Sodium (Porcine) (Heparin -) 5,000 unit IVPUSH PRN PRN PRN Reason: Heparin Dextrose/Lactated Ringer's (D5-Lr -) 1,000 mls @ 125 mls/hr IV ASDIR SUBHA Last Admin: 08/08/16 07:08 Dose: 125 mls/hr Midazolam HCl 100 mg/ Sodium (Chloride) 100 mls @ 3 mls/hr IVPB TITR SUBHA; 3 MG/ HR PRN Reason: Protocol Stop: 08/08/16 16:44 Last Admin: 08/07/16 17:05 Dose: 3 mls/hr Dopamine HCl/Dextrose (Dopamine 400 Mg/D5w -) 250 mls @ 16.01 mls/hr IVPB TITR SUBHA; 5 MCG/KG/MIN PRN Reason: Protocol Last Titration: 08/08/16 04:40 Dose: 7 mcg/kg/min Meropenem 500 mg/ Dextrose 100 mls @ 200 mls/hr IVPB BID SUBHA Last Admin: 08/07/16 22:54 Dose: 200 mls/hr Famotidine/Sodium Chloride (Pepcid 20 Mg Premixed Ivpb -) 50 mls @ 100 mls/hr IVPB DAILY SUBHA Last Admin: 08/07/16 22:55 Dose: 100 mls/hr Amiodarone HCl 450 mg/ (Dextrose) 250 mls @ 33.33 mls/hr IVPB TITR SUBHA; 1 MG/ MIN PRN Reason: Protocol Stop: 08/08/16 10:29 Last Admin: 08/08/16 04:40 Dose: 33.33 mls/hr Heparin Sodium (Porcine) 25, (000 unit/ Sodium Chloride) 500 mls @ 20 mls/hr IV TITR SUBHA; 1,000 UNIT/HR PRN Reason: Protocol Last Admin: 08/08/16 04:45 Dose: 20 mls/hr Amiodarone HCl 450 mg/ (Dextrose) 250 mls @ 16.66 mls/hr IVPB TITR SUBHA; 0.5 MG/ MIN PRN Reason: Protocol Norepinephrine Bitartrate 8, (000 mcg/ Dextrose) 500 mls @ 18.75 mls/hr IV TITR SUBHA; 5 MCG/MIN PRN Reason: Protocol Last Admin: 08/08/16 07:07 Dose: 37.5 mls/hr Morphine Sulfate (Morphine Injection -) 1 mg IVPUSH Q4H PRN PRN Reason: PAIN Last Admin: 08/07/16 09:43 Dose: 1 mg - Objective Vital Signs: Vital Signs Temperature 99.4 F 08/08/16 02:06 Pulse Rate 108 H 08/08/16 04:12 Respiratory Rate 24 08/08/16 06:54 Blood Pressure 91/63 08/08/16 04:12 O2 Sat by Pulse Oximetry (%) 100 08/07/16 21:00 Cardiovascular: Yes: Regular Rate and Rhythm Respiratory: Yes: Intubated, Mechanically Ventilated, Rhonchi Gastrointestinal: Yes: Soft, Hypoactive Bowel Sounds Extremities: Yes: Other (Warm) Edema: No Labs: CBC, BMP 08/08/16 05:15 08/08/16 05:15 INR, PTT INR 1.34 (0.82-1.09) H 08/08/16 05:15 Fibrinogen 336.0 mg/dL (238-498) 08/07/16 11:20 - ....Imaging Chest X-ray: Report Reviewed (Basilar ATX) EKG: Report Reviewed (EKG: ST @ 106 LBBB) Problem List - Problems (1) CRISS (acute kidney injury) Code(s): N17.9 - ACUTE KIDNEY FAILURE, UNSPECIFIED (2) Bacteremia due to Gram-negative bacteria Code(s): R78.81 - BACTEREMIA (3) Biliary sepsis Code(s): K83.0 - CHOLANGITIS (4) CAD (coronary artery disease) Code(s): I25.10 - ATHSCL HEART DISEASE OF [place] CORONARY ARTERY W/O ANG PCTRS Qualifiers: Coronary Disease-Associated Artery/Lesion type: unspecified vessel or lesion type [place] vs. transplanted heart: [place] heart Associated angina: without angina Qualified Code(s): I25.10 - Atherosclerotic heart disease of [place] coronary artery without angina pectoris (5) CKD (chronic kidney disease) Code(s): N18.9 - CHRONIC KIDNEY DISEASE, UNSPECIFIED (6) Calculus of common duct with obstruction Code(s): K80.51 - CALCULUS OF BILE DUCT W/O CHOLANGITIS OR CHOLECYST W OBST (7) History of percutaneous coronary intervention Code(s): Z98.890 - OTHER SPECIFIED POSTPROCEDURAL STATES (8) S/P ERCP Code(s): Z98.890 - OTHER SPECIFIED POSTPROCEDURAL STATES (9) Thrombocytopenia Code(s): D69.6 - THROMBOCYTOPENIA, UNSPECIFIED (10) Acute hypoxemic respiratory failure Code(s): J96.01 - ACUTE RESPIRATORY FAILURE WITH HYPOXIA (11) Gram negative septic shock Code(s): A41.50 - GRAM-NEGATIVE SEPSIS, UNSPECIFIED R65.21 - SEVERE SEPSIS WITH SEPTIC SHOCK (12) Left bundle branch block Code(s): I44.7 - LEFT BUNDLE-BRANCH BLOCK, UNSPECIFIED (13) Demand ischemia Code(s): I24.8 - OTHER FORMS OF ACUTE ISCHEMIC HEART DISEASE Assessment/Plan 85 year old admitted with obstructive jaundice and cholangitis. Went to OR for ERCP yesterday. Operative note reviewed finding of biliary stone in CBD with stent placement. At present he is intubated with the requirement for levophed and dopamine. Meropenem added with the overnight the preliminary report from nursing staff that lab says gram negative rods in the blood. 1. Acute hypoxemic respiratory failure on mechanical ventilation 2. Biliary septic shock, cholangitis post ERCP, choledocholithiasis retrieval and stent placement with leukocytosis and lactic acidosis 3. Post TAVR for severe 4. CAD, S/P PCI/stent with demand ischemic injury 5. H/o Hypertension currently hypotensive requiring pressors 6. Renal CA S/P right nephrectomy 7. Acute on CKD referable to sepsis 8. Thrombocytopenia due to sepsis PLAN: 1. Wean Levophed then dopamine gtt to maintain MAP>65 mmHg. D/c amio gtt 2. Continue antibiotics coverage as per ID. Blood cultures pending 3. Trend trops, monitor renal recovery, wean vent per ABG 4. Heparin gtt with caution given thrombocytopenia, GI prophylaxis Animation Artist: Aubrey Vieyra MD ([facility])
[2016-08-08] MEDS: MEROPENEM 500 MG in DEXTROSE 5%-WATER - 100 ML IVPB SCH ×2 (09:53→21:17)
[2016-08-08] MEDS: FAMOTIDINE 20 MG/50 ML IVPB 50 ML IVPB SCH (09:53)
[2016-08-08 10:00] LABS: TROPONIN I 2.46 ng/ml (0.00-0.05)
[2016-08-08] MEDS ORDERED: ASPIRIN 81 MG CHEWABLE TABLETS PO SCH (10:00)
[2016-08-08] MEDS ORDERED: LEVOFLOXACIN 250 MG IVPB 50 ML IVPB SCH (10:00)
--- NOTE | 2016-08-08 10:01 | PN ---
Progress Note (short form) - Note Progress Note: Intubated In ICU Vital Signs Period Temp Pulse Resp BP Sys/Hinkle Pulse Ox Last 24 Hr 98 F-99.4 F 80-118 8-25 70-108/34-65 94-100 S/P ERCP with stent CBC,CMP WBC 31.1 K/mm3 (4.0-10.0) H* 08/08/16 05:15 RBC 3.56 M/mm3 (4.00-5.60) L 08/08/16 05:15 Hgb 10.3 GM/dL (11.7-16.9) L 08/08/16 05:15 Hct 31.7 % (35.4-49) L 08/08/16 05:15 MCV 89.0 fl (80-96) 08/08/16 05:15 MCHC 32.4 g/dl (32.0-35.9) 08/08/16 05:15 RDW 16.9 % (11.9-15.9) H 08/08/16 05:15 Plt Count 48 K/MM3 (134-434) L 08/08/16 05:15 MPV 11.2 fl (7.5-11.1) H 08/08/16 05:15 Neutrophils % Y 08/08/16 05:15 Lymphocytes % Y 08/08/16 05:15 Monocytes % 6.0 % (3.8-10.2) D 08/07/16 20:30 Eosinophils % 0.5 % (0-4.5) 08/07/16 09:00 Basophils % 0.2 % (0-2.0) 08/07/16 09:00 Band Neutrophils 33.0 % (0-10) H D 08/07/16 20:30 Metamyelocytes 5 % (0-2) H D 08/07/16 20:30 Myelocytes 9 % (0-2) H D 08/07/16 20:30 Differential Comment Manual diff done 08/07/16 06:00 Platelet Estimate Decreased (NORMAL) 08/07/16 06:00 Sodium 137 mmol/L (136-145) 08/08/16 05:15 Potassium 4.9 mmol/L (3.5-5.1) 08/08/16 05:15 Chloride 103 mmol/L (98-107) 08/08/16 05:15 Carbon Dioxide 16 mmol/L (21-32) L 08/08/16 05:15 Anion Gap 18 (8-16) H 08/08/16 05:15 BUN 52 mg/dL (7-18) H 08/08/16 05:15 Creatinine 4.4 mg/dL (0.7-1.3) H 08/08/16 05:15 Creat Clearance w eGFR 12.79 (>60) 08/08/16 05:15 Random Glucose 128 mg/dL (74-106) H 08/08/16 05:15 Lactic Acid 2.275 mmol/L (0.4-2.0) H* 08/08/16 06:00 Calcium 7.0 mg/dL (8.5-10.1) L 08/08/16 05:15 Phosphorus 3.3 mg/dL (2.5-4.9) 08/07/16 20:30 Magnesium 1.9 mg/dL (1.8-2.4) 08/07/16 20:30 Total Bilirubin 9.3 mg/dL (0.2-1.0) H 08/08/16 05:15 Direct Bilirubin 7.7 mg/dL (0.0-0.2) H 08/08/16 05:15 AST 121 U/L (15-37) H 08/08/16 05:15 ALT 67 U/L (12-78) 08/08/16 05:15 Alkaline Phosphatase 803 U/L (45-117) H 08/08/16 05:15 Creatine Kinase 120 IU/L (39-308) 08/08/16 05:15 Troponin I 1.41 ng/ml (0.00-0.05) H* D 08/08/16 02:00 C-Reactive Protein 21.5 MG/DL (0.00-0.3) H 08/08/16 05:15 Total Protein 4.8 g/dl (6.4-8.2) L 08/08/16 05:15 Albumin 1.8 g/dl (3.4-5.0) L 08/08/16 05:15 Total Amylase 49 U/L (25-115) D 08/08/16 05:15 Lipase 116 U/L (73-393) 08/08/16 05:15 In septic shock Antibiotics Pressors as needed ICU care May need Interventional radiology for percutaneous cholecystostomy for proximal decompression Would consult Dr Ortega Too high risk/sick for any operative intervention Problem List - Problems (1) Umbilical discharge Code(s): R19.8 - OTH SYMPTOMS AND SIGNS INVOLVING THE DGSTV SYS AND ABDOMEN
[2016-08-08] MEDS ORDERED: LIDOCAINE 0.4%/D5W IVPB 250ML BAG IVPB ONE (11:30)
--- NOTE | 2016-08-08 11:30 | PN ---
Progress Note, Physician History of Present Illness: Pt seen and examined at bedside. He is now in the ICU. Pt is intubated and on pressors. - Current Medication List Current Medications: Active Medications Aspirin (Asa -) 162 mg PO DAILY SUBHA Last Admin: 08/08/16 09:54 Dose: Not Given Fentanyl (Sublimaze Injection -) 25 mcg IVPUSH [id number] PRN PRN Reason: PAIN Stop: 08/10/16 16:20 Last Admin: 08/07/16 17:38 Dose: 25 mcg Heparin Sodium (Porcine) (Heparin -) 1,000 unit IVPUSH PRN PRN PRN Reason: Heparin Heparin Sodium (Porcine) (Heparin -) 5,000 unit IVPUSH PRN PRN PRN Reason: Heparin Dextrose/Lactated Ringer's (D5-Lr -) 1,000 mls @ 125 mls/hr IV ASDIR SUBHA Last Admin: 08/08/16 07:08 Dose: 125 mls/hr Midazolam HCl 100 mg/ Sodium (Chloride) 100 mls @ 3 mls/hr IVPB TITR SUBHA; 3 MG/ HR PRN Reason: Protocol Stop: 08/08/16 16:44 Last Admin: 08/07/16 17:05 Dose: 3 mls/hr Dopamine HCl/Dextrose (Dopamine 400 Mg/D5w -) 250 mls @ 16.01 mls/hr IVPB TITR SUBHA; 5 MCG/KG/MIN PRN Reason: Protocol Last Titration: 08/08/16 04:40 Dose: 7 mcg/kg/min Meropenem 500 mg/ Dextrose 100 mls @ 200 mls/hr IVPB BID SUBHA Last Admin: 08/08/16 09:53 Dose: 200 mls/hr Famotidine/Sodium Chloride (Pepcid 20 Mg Premixed Ivpb -) 50 mls @ 100 mls/hr IVPB DAILY SUBHA Last Admin: 08/08/16 09:53 Dose: 100 mls/hr Heparin Sodium (Porcine) 25, (000 unit/ Sodium Chloride) 500 mls @ 20 mls/hr IV TITR SUBHA; 1,000 UNIT/HR PRN Reason: Protocol Last Admin: 08/08/16 04:45 Dose: 20 mls/hr Amiodarone HCl 450 mg/ (Dextrose) 250 mls @ 16.66 mls/hr IVPB TITR SUBHA; 0.5 MG/ MIN PRN Reason: Protocol Norepinephrine Bitartrate 8, (000 mcg/ Dextrose) 500 mls @ 18.75 mls/hr IV TITR SUBHA; 5 MCG/MIN PRN Reason: Protocol Last Admin: 08/08/16 07:07 Dose: 37.5 mls/hr Morphine Sulfate (Morphine Injection -) 1 mg IVPUSH Q4H PRN PRN Reason: PAIN Last Admin: 08/07/16 09:43 Dose: 1 mg - Objective Vital Signs: Vital Signs Temperature 99.7 F H 08/08/16 10:00 Pulse Rate 91 H 08/08/16 10:00 Respiratory Rate 23 08/08/16 10:00 Blood Pressure 118/60 08/08/16 10:00 O2 Sat by Pulse Oximetry (%) 100 08/08/16 10:00 Constitutional: Yes: Calm Eyes: Yes: Sclera Icterus Cardiovascular: Yes: S1, S2 Respiratory: Yes: Mechanically Ventilated Gastrointestinal: Yes: Soft Genitourinary: Yes: [place] Present, Oliguria Musculoskeletal: Yes: Muscle Weakness Edema: No Integumentary: Yes: Jaundice Neurological: Yes: Lethargy Labs: CBC, BMP 08/08/16 05:15 08/08/16 05:15 INR, PTT INR 1.34 (0.82-1.09) H 08/08/16 05:15 Fibrinogen 336.0 mg/dL (238-498) 08/07/16 11:20 - ....Imaging Chest X-ray: Report Reviewed Ultrasound: Report Reviewed (left kidney appears unremarkable) Problem List - Problems (1) CAD (coronary artery disease) Code(s): I25.10 - ATHSCL HEART DISEASE OF [place] CORONARY ARTERY W/O ANG PCTRS Qualifiers: Coronary Disease-Associated Artery/Lesion type: unspecified vessel or lesion type [place] vs. transplanted heart: [place] heart Associated angina: without angina Qualified Code(s): I25.10 - Atherosclerotic heart disease of [place] coronary artery without angina pectoris (2) Calculus of common duct with obstruction Code(s): K80.51 - CALCULUS OF BILE DUCT W/O CHOLANGITIS OR CHOLECYST W OBST (3) Choledocholithiasis Code(s): K80.50 - CALCULUS OF BILE DUCT W/O CHOLANGITIS OR CHOLECYST W/O OBST (4) Renal cancer Code(s): C64.9 - MALIGNANT NEOPLASM OF UNSP KIDNEY, EXCEPT RENAL PELVIS Qualifiers: Laterality: right Qualified Code(s): C64.1 - Malignant neoplasm of right kidney, except renal pelvis (5) CRISS (acute kidney injury) Code(s): N17.9 - ACUTE KIDNEY FAILURE, UNSPECIFIED (6) CKD (chronic kidney disease) Code(s): N18.9 - CHRONIC KIDNEY DISEASE, UNSPECIFIED Assessment/Plan Current Medications Generic Name Dose Route Start Last Admin Trade Name Freq PRN Reason Stop Dose Admin Aspirin 162 mg 08/08/16 10:00 08/08/16 09:54 Asa - PO Not Given DAILY SUBHA Fentanyl 25 mcg 08/07/16 16:19 08/07/16 17:38 Sublimaze Injection - IVPUSH 08/10/16 16:20 25 mcg [id number] PRN Administration PAIN Heparin Sodium (Porcine) 1,000 unit 08/08/16 04:19 Heparin - IVPUSH PRN PRN Heparin Heparin Sodium (Porcine) 5,000 unit 08/08/16 04:19 Heparin - IVPUSH PRN PRN Heparin Dextrose/Lactated Ringer's 1,000 mls @ 125 mls/hr 08/08/16 06:00 08/08/16 07:08 D5-Lr - IV 125 mls/hr ASDIR SUBHA Administration Midazolam HCl 100 mg/ Sodium 100 mls @ 3 mls/hr 08/07/16 16:45 08/07/16 17:05 Chloride IVPB 08/08/16 16:44 3 mls/hr TITR SUBHA Administration Protocol 3 MG/HR Dopamine HCl/Dextrose 250 mls @ 16.01 mls/hr 08/07/16 17:15 08/08/16 04:40 Dopamine 400 Mg/D5w - IVPB 7 mcg/kg/min TITR SUBHA Titration Protocol 5 MCG/KG/MIN Meropenem 500 mg/ Dextrose 100 mls @ 200 mls/hr 08/07/16 22:00 08/08/16 09:53 IVPB 200 mls/hr BID SUBHA Administration Famotidine/Sodium Chloride 50 mls @ 100 mls/hr 08/07/16 22:30 08/08/16 09:53 Pepcid 20 Mg Premixed Ivpb - IVPB 100 mls/hr DAILY SUBHA Administration Heparin Sodium (Porcine) 25, 500 mls @ 20 mls/hr 08/08/16 04:30 08/08/16 04:45 000 unit/ Sodium Chloride IV 20 mls/hr TITR SUBHA Administration Protocol 1,000 UNIT/HR Amiodarone HCl 450 mg/ 250 mls @ 16.66 mls/hr 08/08/16 10:30 Dextrose IVPB TITR SUBHA Protocol 0.5 MG/MIN Norepinephrine Bitartrate 8, 500 mls @ 18.75 mls/hr 08/08/16 06:45 08/08/16 07: 07 000 mcg/ Dextrose IV 37.5 mls/hr TITR SUBHA Administration Protocol 5 MCG/MIN Morphine Sulfate 1 mg 08/07/16 08:45 08/07/16 09:43 Morphine Injection - IVPUSH 1 mg Q4H PRN Administration PAIN Impression 1. CKD stage 3 2. CRISS 3. choledocholithiasis 4. CAD 5. hx of Renal Cell Cancer s/p nephroectomy 6. aortic stenosis 7. sepsis 8. acute respiratory failure requiring intubation 9. NSTEMI 10. bacteremia Plan - cont with pressors to a MAP of 65 - pt remains in renal failure and is now oliguric - cont with fluids - renal ultrasound reviewed, negative hydro - follow up blood cultures and sensitivities - renal dose meds surgery input appreciated, IR pending - discussed with ICU team - cont vent support - likely CRISS is from ATN - monitor in ICU Dr Medina
[2016-08-08] MEDS: DEXTROSE 5%-NORMAL SALINE 1,000 ML IV SCH (12:00)
--- NOTE | 2016-08-08 12:10 | PROC ---
Procedure Note Procedure: patient is S/P ERCP. His is intubated and staff cannot pass a stone. He has a history of urethral stricture. under sterile conditions, an 18 Fr upper mattaponi tip cath was placed over a wire and he was dilated with it.
--- NOTE | 2016-08-08 12:23 | PN ---
Teaching Attending Note Name of Resident: Darryl Olmedo ATTENDING PHYSICIAN STATEMENT I saw and evaluated the patient. I reviewed the resident's note and discussed the case with the resident. I agree with the resident's findings and plan as documented. SUBJECTIVE: Pt seen and examined in the ICU. Remains intubated on levophed and dopamine gtts. No fevers recorded but blood cultures growing gram negative bacilli. OBJECTIVE: Last Vital Signs Temp Pulse Resp BP Pulse Ox 99.7 F H 91 H 23 118/60 100 08/08/16 10:00 08/08/16 10:00 08/08/16 10:00 08/08/16 10:00 08/08/16 10:00 Intake & Output 08/05/16 08/06/16 08/07/16 08/08/16 23:59 23:59 23:59 23:59 Intake Total 4050 2533 Output Total 300 460 Balance 3750 2073 Weight 188 lb 188 lb 4 oz 203 lb 7.787 oz Gen: intubated, sedated, jaundiced Heart: RRR Lung: decreased breath sounds at the bases Abd: soft, nontender Ext: no edema CBC, BMP 08/08/16 05:15 08/08/16 05:15 Active Medications Aspirin (Asa -) 162 mg PO DAILY SUBHA Last Admin: 08/08/16 09:54 Dose: Not Given Fentanyl (Sublimaze Injection -) 25 mcg IVPUSH [id number] PRN PRN Reason: PAIN Stop: 08/10/16 16:20 Last Admin: 08/07/16 17:38 Dose: 25 mcg Heparin Sodium (Porcine) (Heparin -) 1,000 unit IVPUSH PRN PRN PRN Reason: Heparin Midazolam HCl 100 mg/ Sodium (Chloride) 100 mls @ 3 mls/hr IVPB TITR SUBHA; 3 MG/ HR PRN Reason: Protocol Stop: 08/08/16 16:44 Last Admin: 08/07/16 17:05 Dose: 3 mls/hr Dopamine HCl/Dextrose (Dopamine 400 Mg/D5w -) 250 mls @ 16.01 mls/hr IVPB TITR SUBHA; 5 MCG/KG/MIN PRN Reason: Protocol Last Titration: 08/08/16 04:40 Dose: 7 mcg/kg/min Meropenem 500 mg/ Dextrose 100 mls @ 200 mls/hr IVPB BID SUBHA Last Admin: 08/08/16 09:53 Dose: 200 mls/hr Famotidine/Sodium Chloride (Pepcid 20 Mg Premixed Ivpb -) 50 mls @ 100 mls/hr IVPB DAILY SUBHA Last Admin: 08/08/16 09:53 Dose: 100 mls/hr Norepinephrine Bitartrate 8, (000 mcg/ Dextrose) 500 mls @ 18.75 mls/hr IV TITR SUBHA; 5 MCG/MIN PRN Reason: Protocol Last Admin: 08/08/16 07:07 Dose: 37.5 mls/hr Dextrose/Sodium Chloride (D5-Ns -) 1,000 mls @ 75 mls/hr IV ASDIR SUBHA Morphine Sulfate (Morphine Injection -) 1 mg IVPUSH Q4H PRN PRN Reason: PAIN Last Admin: 08/07/16 09:43 Dose: 1 mg ASSESSMENT AND PLAN: Acute Cholangitis Gram Negative Bacteremia s/p ERCP/sphincteroplasty/stent placement Acute Hypoxic Respiratory Failure Septic Shock Acute on Chronic Renal Failure Lactic Acidosis CAD +Troponins likely [place] Ischemia s/p TAVR for severe Aortic Stenosis Thrombocytopenia - continue antibiotics - f/u cultures - IVF to keep CVP 8-12 - titrate pressors to maintain MAP >65 - taper FiO2 to keep SpO2 >90% - d/c heparin and amiodarone gtts - monitor platelets/coags/fibrinogen levels - trend troponins to document peak - echocardiogram - monitor urine output, creatinine - trend lactate - NPO - DVT/GI prophylaxis - continue ICU monitoring critical care time spent in reviewing chart, evaluating patient and formulating plan 40 min
--- NOTE | 2016-08-08 13:54 | PN ---
GI Progress Note Subjective: Remains intubated on pressors g - bacteremia, oliguric renal failure Made tropoinins, ? episode of NSVT S/P ERCP with balloon sphicteroplasty and stenting. Stone extrction not performed as sphincterotomy high risk for bleeding in the setting of dual antiplatelet therapy - Objective Vital Signs: Vital Signs Temperature 99.7 F H 08/08/16 10:00 Pulse Rate 87 08/08/16 12:00 Respiratory Rate 23 08/08/16 12:34 Blood Pressure 107/57 08/08/16 12:00 O2 Sat by Pulse Oximetry (%) 100 08/08/16 10:20 Constitutional: No Distress, Calm Eyes: Yes: Sclera Icterus Cardiovascular: Yes: Regular Rate and Rhythm Respiratory: Yes: Diminished (at bases with poor insp effort) Gastrointestinal Inspection: No: Distention ...Auscultate: Yes: Normoactive Bowel Sounds ...Palpate: No: Tenderness ( no grimacing upon palpation) ...Percussion: No: Tympanitic Edema: Yes Edema: LLE: 1+, RLE: 1+ Neurological: Yes: Other (Sedated) Labs: CBC, BMP 08/08/16 05:15 08/08/16 05:15 INR, PTT INR 1.34 (0.82-1.09) H 08/08/16 05:15 Fibrinogen 336.0 mg/dL (238-498) 08/07/16 11:20 Hepatic Panel Total Bilirubin 9.3 mg/dL (0.2-1.0) H 08/08/16 05:15 Direct Bilirubin 7.7 mg/dL (0.0-0.2) H 08/08/16 05:15 AST 121 U/L (15-37) H 08/08/16 05:15 ALT 67 U/L (12-78) 08/08/16 05:15 Alkaline Phosphatase 803 U/L (45-117) H 08/08/16 05:15 Albumin 1.8 g/dl (3.4-5.0) L 08/08/16 05:15 Problem List - Problems (1) Choledocholithiasis Assessment/Plan: With cholangitis s/p ERCP with biliary stent placement + Bacteremia multiorgan failure Continuing supportive measures IV abx per ID Monitor LFTs Patient's and niece present at bedside. Aware of the grave clinical situation Code(s): K80.50 - CALCULUS OF BILE DUCT W/O CHOLANGITIS OR CHOLECYST W/O OBST
--- NOTE | 2016-08-08 14:38 | EKG ---
Test Reason : Blood Pressure : / mmHG Vent. Rate : 111 BPM Atrial Rate : 111 BPM P-R Int : 000 ms QRS Dur : 162 ms QT Int : 374 ms P-R-T Axes : 006 043 197 degrees QTc Int : 508 ms SINUS TACHYCARDIA LEFT BUNDLE BRANCH BLOCK ABNORMAL ECG WHEN COMPARED WITH ECG OF 06-AUG-2016 22:09, NO SIGNIFICANT CHANGE WAS FOUND Confirmed by NAVARRO BROOKS MD ([id number]) on 08/08/2016 2:38:38 PM Referred By: Confirmed By:NAVARRO BROOKS MD
--- NOTE | 2016-08-08 14:39 | EKG ---
Test Reason : Blood Pressure : / mmHG Vent. Rate : 106 BPM Atrial Rate : 106 BPM P-R Int : 174 ms QRS Dur : 154 ms QT Int : 388 ms P-R-T Axes : 004 026 -13 degrees QTc Int : 515 ms SINUS TACHYCARDIA LEFT BUNDLE BRANCH BLOCK ABNORMAL ECG WHEN COMPARED WITH ECG OF 07-AUG-2016 20:03, NONSPECIFIC T WAVE ABNORMALITY HAS REPLACED INVERTED T WAVES IN INFERIOR LEADS Confirmed by CECILIA SCOTT, NAVARRO ([id number]) on 08/08/2016 2:39:34 PM Referred By: Confirmed By:NAVARRO BROOKS MD
[2016-08-08 15:18] LABS: TROPONIN I 6.31 ng/ml (0.00-0.05)
[2016-08-08] MEDS ORDERED: ACETAMINOPHEN 1000 MG/100 ML VIAL (NON FORMULARY) IVPB PRN (17:16)
--- NOTE | 2016-08-08 17:30 | PN ---
Progress Note (short form) - Note Progress Note: Subjective: The patient was seen and examined at the bedside, he remains sedated and intubated. Tmax 99.7 WBC 31.1 Blood culture prelim lactose fermenting neg bacilli Current Medications Generic Name Dose Route Start Last Admin Trade Name Freq PRN Reason Stop Dose Admin Acetaminophen 1,000 mg 08/08/16 17:16 Ofirmev Injection - IVPB 08/09/16 11:17 Q6H PRN FEVER OR PAIN Fentanyl 25 mcg 08/07/16 16:19 08/07/16 17:38 Sublimaze Injection - IVPUSH 08/10/16 16:20 25 mcg [id number] PRN Administration PAIN Heparin Sodium (Porcine) 1,000 unit 08/08/16 04:19 Heparin - IVPUSH PRN PRN Heparin Dopamine HCl/Dextrose 250 mls @ 16.01 mls/hr 08/07/16 17:15 08/08/16 04:40 Dopamine 400 Mg/D5w - IVPB 7 mcg/kg/min TITR SUBHA Titration Protocol 5 MCG/KG/MIN Meropenem 500 mg/ Dextrose 100 mls @ 200 mls/hr 08/07/16 22:00 08/08/16 09:53 IVPB 200 mls/hr BID SUBHA Administration Famotidine/Sodium Chloride 50 mls @ 100 mls/hr 08/07/16 22:30 08/08/16 09:53 Pepcid 20 Mg Premixed Ivpb - IVPB 100 mls/hr DAILY SUBHA Administration Norepinephrine Bitartrate 8, 500 mls @ 18.75 mls/hr 08/08/16 06:45 08/08/16 07: 07 000 mcg/ Dextrose IV 37.5 mls/hr TITR SUBHA Administration Protocol 5 MCG/MIN Dextrose/Sodium Chloride 1,000 mls @ 75 mls/hr 08/08/16 11:30 D5-Ns - IV ASDIR SUBHA Morphine Sulfate 1 mg 08/07/16 08:45 08/07/16 09:43 Morphine Injection - IVPUSH 1 mg Q4H PRN Administration PAIN Objective: Vital Signs Period Temp Pulse Resp BP Sys/Hinkle Pulse Ox Last 24 Hr 98 F-99.7 F 85-118 8-29 86-118/43-84 98-100 Physical Exam: General: Intubated, sedated Heart: RRR, S1S2 Lungs: Rhonchi throughout Abd: Soft, normoactive bowel sounds Ext: Warm, no edema CBCD WBC 31.1 K/mm3 (4.0-10.0) H* 08/08/16 05:15 RBC 3.56 M/mm3 (4.00-5.60) L 08/08/16 05:15 Hgb 10.3 GM/dL (11.7-16.9) L 08/08/16 05:15 Hct 31.7 % (35.4-49) L 08/08/16 05:15 MCV 89.0 fl (80-96) 08/08/16 05:15 MCHC 32.4 g/dl (32.0-35.9) 08/08/16 05:15 RDW 16.9 % (11.9-15.9) H 08/08/16 05:15 Plt Count 48 K/MM3 (134-434) L 08/08/16 05:15 MPV 11.2 fl (7.5-11.1) H 08/08/16 05:15 CMP Sodium 137 mmol/L (136-145) 08/08/16 05:15 Potassium 4.9 mmol/L (3.5-5.1) 08/08/16 05:15 Chloride 103 mmol/L (98-107) 08/08/16 05:15 Carbon Dioxide 16 mmol/L (21-32) L 08/08/16 05:15 Anion Gap 18 (8-16) H 08/08/16 05:15 BUN 52 mg/dL (7-18) H 08/08/16 05:15 Creatinine 4.4 mg/dL (0.7-1.3) H 08/08/16 05:15 Creat Clearance w eGFR 12.79 (>60) 08/08/16 05:15 Random Glucose 128 mg/dL (74-106) H 08/08/16 05:15 Calcium 7.0 mg/dL (8.5-10.1) L 08/08/16 05:15 Total Bilirubin 9.3 mg/dL (0.2-1.0) H 08/08/16 05:15 AST 121 U/L (15-37) H 08/08/16 05:15 ALT 67 U/L (12-78) 08/08/16 05:15 Alkaline Phosphatase 803 U/L (45-117) H 08/08/16 05:15 Total Protein 4.8 g/dl (6.4-8.2) L 08/08/16 05:15 Albumin 1.8 g/dl (3.4-5.0) L 08/08/16 05:15 CARDIAC ENZYMES Creatine Kinase 156 IU/L (39-308) D 08/08/16 13:20 Troponin I 6.31 ng/ml (0.00-0.05) H* D 08/08/16 13:20 Microbiology 08/06/16 18:30 Abdomen Gram Stain - Final 08/06/16 18:30 Abdomen Wound Culture - Preliminary Staphylococcus Coagulase Neg Diphtheroid/Corynebacterium Streptococcus Viridans 08/07/16 10:40 Blood - Peripheral Venous Blood Culture - Preliminary Pending Organism 08/07/16 10:42 Blood - Peripheral Venous Blood Culture - Preliminary Lactose Fermenting Neg Bacilli Assessment: This is an 85 year old male with PMHx of HTN, severe aortic stenosis s/p TAVR, CAD s/p PCI/stent, HTN, renal cancer s/p right nephrectomy, CKD who presented to the ED after being sent from his pcp with an MRI showing an obstructing CBD stone with marked proximal CBD dilatation. Plan: 1) Septic shock with multiorgan failure 2/2 acute cholangitis vs. gram negative bacteremia - S/p ERCP with baloon sphincteropasty and stenting. No stone extraction performed as sphincterotomy high risk for bleeding due to dual antiplatelet therapy - Remains on pressors - Blood cultures with lactose fermenting negative bacilli - Lactic acidosis resolves - Continue IV fluids - Continue Meropenem (08/07- ) - F/u IR consult for possible percutaneous cholecystostomy for proximal decompression - Appreciate GI consult 2) Acute hypoxic respiratory failure - Remains intubated - Continue sedation - Continue pressors - IVF to keep CVP 8-12 3) Positive troponins, hx of CAD s/p PCI/stent - Continues to trend up. Trend for peak - Per cardiology and CC medicine, likely demand ischemia 2/2 shock - ECHO: severely decreased LV fxn, mod-severe RV fxn, mod MR, mild TR, pleural effusion significantly worsened from previous study - Was on Heparin gtt, however discontinued 2/2 thrombocytopenia - Appreciate cardiology consult 4) 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 stage 3 - Likely 2/2 hypoperfusion 2/2 septic shock - Continue IV fluids - Renal ultrasound negative for hydro - Renally dose all medications 5) Hypotension 2/2 septic shock - Continue pressors 6) Severe aortic stenosis s/p TAVR 7) F/E/N: - NPO - Monitor electrolytes 8) Prophylaxis: - Hold all anticogaulation 2/2 thrombocytopenia 9) Dispo: - Requires continued inpatient care CODE STATUS: FULL CODE Visit type - Emergency Visit Emergency Visit: Yes ED Registration Date: 08/06/16 Care time: The patient presented to the Emergency Department on the above date and was hospitalized for further evaluation of their emergent condition. - New Patient This patient is new to me today: Yes Date on this admission: 08/08/16 - Critical Care Critical Care patient: Yes Total Critical Care Time (in minutes): 55 Critical Care Statement: The care of this patient involved high complexity decision making to prevent further life threatening deterioration of the patient 's condition and/or to evalute & treat vital organ system(s) failure or risk of failure.
[2016-08-08] MEDS: DOPAMINE 400 MG/D5W - 250 ML IVPB SCH (18:27)
[2016-08-08 18:40] LABS: PLATELET ESTIMATE DECREASED (NORMAL)
[2016-08-08 18:41] LABS: DOHLE BODIES 1+; HYPOCHROMIA FEW; POLYCHROMASIA FEW
[2016-08-08] MEDS ORDERED: NOREPINEPHRINE BITARTRATE 4 MG/4 ML ML IV ONE (19:37)
[2016-08-08] MEDS ORDERED: MIDAZOLAM 100 MG in SODIUM CHLORIDE 100 ML IVPB SCH (21:00)
[2016-08-08] MEDS: NYSTATIN POWDER 100,000 UNITS/GM - 15 GM TOPICAL POWDER TP SCH (21:11)
[2016-08-08] MEDS ORDERED: PT OWN MED DRAWER 7, Y5N ONE (21:17)
[2016-08-08] MEDS: HEPARIN NA (PORCINE) 5,000 UNITS/ML 1ML VIAL SQ SCH (21:17)
[2016-08-09 06:49] LABS: ALBUMIN 1.7 g/dl (3.4-5.0); BILIRUBIN,DIRECT 6.1 mg/dL (0.0-0.2); BILIRUBIN,TOTAL 7.2 mg/dL (0.2-1.0); CALCIUM 7.6 mg/dL (8.5-10.1); CREATININE 5.2 mg/dL (0.7-1.3); MAGNESIUM 2.3 mg/dL (1.8-2.4); PHOSPHOROUS 3.4 mg/dL (2.5-4.9); TOT PROT 4.4 g/dl (6.4-8.2)
[2016-08-09 07:23] LABS: TROPONIN I 6.99 ng/ml (0.00-0.05)
--- NOTE | 2016-08-09 07:33 | PN ---
Progress Note, Physician Chief Complaint: ID Icu follow up for this 85 year old with sepsis syndrome secondary to biliary source. Presently remains intubated Meropenem pending sensitivity - Current Medication List Current Medications: Active Medications Acetaminophen (Ofirmev Injection -) 1,000 mg IVPB Q6H PRN PRN Reason: FEVER OR PAIN Stop: 08/09/16 11:17 Fentanyl (Sublimaze Injection -) 25 mcg IVPUSH [id number] PRN PRN Reason: PAIN Stop: 08/10/16 16:20 Last Admin: 08/07/16 17:38 Dose: 25 mcg Heparin Sodium (Porcine) (Heparin -) 5,000 unit SQ BID SUBHA Last Admin: 08/08/16 21:17 Dose: 5,000 unit Dopamine HCl/Dextrose (Dopamine 400 Mg/D5w -) 250 mls @ 16.01 mls/hr IVPB TITR SUBHA; 5 MCG/KG/MIN PRN Reason: Protocol Last Admin: 08/08/16 18:27 Dose: Not Given Meropenem 500 mg/ Dextrose 100 mls @ 200 mls/hr IVPB BID SUBHA Last Admin: 08/08/16 21:17 Dose: 200 mls/hr Famotidine/Sodium Chloride (Pepcid 20 Mg Premixed Ivpb -) 50 mls @ 100 mls/hr IVPB DAILY SUBHA Last Admin: 08/08/16 09:53 Dose: 100 mls/hr Norepinephrine Bitartrate 8, (000 mcg/ Dextrose) 500 mls @ 18.75 mls/hr IV TITR SUBHA; 5 MCG/MIN PRN Reason: Protocol Last Admin: 08/08/16 07:07 Dose: 37.5 mls/hr Dextrose/Sodium Chloride (D5-Ns -) 1,000 mls @ 75 mls/hr IV ASDIR SUBHA Last Admin: 08/08/16 12:00 Dose: 75 mls/hr Midazolam HCl 100 mg/ Sodium (Chloride) 100 mls @ 1 mls/hr IVPB TITR SUBHA; 1 MG/ HR PRN Reason: Protocol Last Admin: 08/08/16 21:15 Dose: 3 mls/hr Morphine Sulfate (Morphine Injection -) 1 mg IVPUSH Q4H PRN PRN Reason: PAIN Last Admin: 08/07/16 09:43 Dose: 1 mg Nystatin (Nystop Powder -) 1 applic TP BID SUBHA Last Admin: 08/08/16 21:11 Dose: 1 applic - Objective Vital Signs: Vital Signs Temperature 98.7 F 08/09/16 06:00 Pulse Rate 77 08/09/16 06:00 Respiratory Rate 23 08/09/16 06:34 Blood Pressure 113/58 08/09/16 06:00 O2 Sat by Pulse Oximetry (%) 100 08/08/16 20:12 Constitutional: Yes: Well Nourished, No Distress, Other (INtubated\) HENT: Yes: Other (Et tube) Cardiovascular: Yes: Regular Rate and Rhythm, S1, S2 Respiratory: Yes: WNL, Regular, CTA Bilaterally Gastrointestinal: Yes: WNL, Normal Bowel Sounds, Soft. No: Tenderness, Tenderness, Rebound Extremities: No: Cold, Cool, Cyanosis Labs: CBC, BMP 08/08/16 05:15 08/09/16 05:45 INR, PTT INR 1.34 (0.82-1.09) H 08/08/16 05:15 Fibrinogen 336.0 mg/dL (238-498) 08/07/16 11:20 Problem List - Problems (1) Biliary sepsis Code(s): K83.0 - CHOLANGITIS (2) Bacteremia due to Gram-negative bacteria Code(s): R78.81 - BACTEREMIA (3) Thrombocytopenia Code(s): D69.6 - THROMBOCYTOPENIA, UNSPECIFIED Assessment/Plan Microbiology 08/07/16 10:42 Blood - Peripheral Venous Blood Culture - Preliminary Lactose Fermenting Neg Bacilli 08/07/16 10:40 Blood - Peripheral Venous Blood Culture - Preliminary Pending Organism Laboratory Tests 08/08/16 08/08/16 08/08/16 05:15 05:15 18:30 WBC 31.1 H* Hgb 10.3 L Plt Count 48 L Neutrophils % 85.0 H D Lymphocytes % 2.0 L D Monocytes % 2.0 L Band Neutrophils 11.0 H D INR 1.34 H BUN Total Bilirubin Direct Bilirubin AST ALT Alkaline Phosphatase Troponin I 7.41 H* 08/09/16 08/09/16 05:45 05:45 WBC Hgb Plt Count Neutrophils % Lymphocytes % Monocytes % Band Neutrophils INR BUN 65 H D Total Bilirubin 7.2 H D Direct Bilirubin 6.1 H D AST 107 H ALT 58 Alkaline Phosphatase 686 H Troponin I 6.99 H* Microbiology 08/06/16 18:30 Abdomen Gram Stain - Final 08/07/16 10:42 Blood - Peripheral Venous Blood Culture - Preliminary Lactose Fermenting Neg Bacilli 08/07/16 10:40 Blood - Peripheral Venous Blood Culture - Preliminary Pending Organism 08/06/16 18:30 Abdomen Wound Culture - Preliminary Staphylococcus Coagulase Neg Diphtheroid/Corynebacterium Streptococcus Viridans Assessment Gram negative 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
[2016-08-09] MEDS ORDERED: PT OWN MED DRAWER 7, Y5N ONE ×2 (08:37→23:33)
[2016-08-09] MEDS ORDERED: NOREPINEPHRINE BITARTRATE 4 MG/4 ML ML IV ONE (08:45)
[2016-08-09] MEDS: NOREPINEPHRINE BITARTRATE 8,000 MCG in DEXTROSE 5%-WATER - 492 ML IV SCH (08:50)
[2016-08-09 08:58] LABS: MCH 28.8 pg (25.7-33.7); MEAN CELL VOLUME 87.4 fl (80-96); MEAN PLT VOLUME 10.8 fl (7.5-11.1); RDW 16.6 % (11.9-15.9)
[2016-08-09 09:00] LABS: WHITE BLOOD COUNT 35.9 K/mm3 (4.0-10.0)
[2016-08-09 09:01] LABS: PLATELET COUNT 43 K/MM3 (134-434)
[2016-08-09] MEDS: HEPARIN NA (PORCINE) 5,000 UNITS/ML 1ML VIAL SQ SCH ×2 (09:01→23:34)
[2016-08-09] MEDS: MEROPENEM 500 MG in DEXTROSE 5%-WATER - 100 ML IVPB SCH ×2 (09:01→23:34)
[2016-08-09] MEDS: FAMOTIDINE 20 MG/50 ML IVPB 50 ML IVPB SCH (09:01)
[2016-08-09] MEDS: NYSTATIN POWDER 100,000 UNITS/GM - 15 GM TOPICAL POWDER TP SCH ×2 (09:01→23:35)
--- NOTE | 2016-08-09 09:10 | PN ---
Physical Exam: SUBJECTIVE: Patient seen and examined. intubated. OBJECTIVE: Vital Signs Period Temp Pulse Resp BP Sys/Hinkle Pulse Ox Last 24 Hr 98.6 F-100 F 72-91 20-29 95-118/54-84 98-100 EYES: constricted pupils, sclera anicteric, conjunctiva clear. No ptosis. ENT: nares patent, oropharynx with endotracheal tube and OG tube, moist mucous membranes. NECK: Trachea midline LUNGS: Breath sounds equal, clear to auscultation bilaterally, no wheezes, no crackles, no accessory muscle use. HEART: Regular rate and rhythm, S1, S2 without murmur, rub or gallop. ABDOMEN: Soft, nondistended, multiple diffuse palpable soft mobile nodularities , normoactive bowel sounds, periumbilical erythema with demuted skin laterally along skin fold, scant serous discharge covered with nystatin power EXTREMITIES: 2+ pulses in b/l radial and DP, warm, well-perfused, no edema. scd' s in place SKIN: Warm, jaundiced. Stone in place Laboratory Results - last 24 hr 08/08/16 08/08/16 08/08/16 02:00 05:15 05:15 WBC RBC Hgb Hct MCV MCHC RDW Plt Count MPV Neutrophils % 85.0 H D Lymphocytes % 2.0 L D Monocytes % 2.0 L Band Neutrophils 11.0 H D Dohle Bodies 1+ Platelet Estimate Decreased Platelet Comment No clumping noted Polychromasia Few Hypochromic-Microcytic Few PTT (Actin FS) Sodium Potassium Chloride Carbon Dioxide Anion Gap BUN Creatinine Random Glucose Lactic Acid Calcium Phosphorus Magnesium Total Bilirubin Direct Bilirubin AST ALT Alkaline Phosphatase Creatine Kinase 120 Creatine Kinase Index CK-MB (CK-2) CK-MB (CK-2) Rel Index Troponin I 2.46 H* D Total Protein Albumin Ur Specific [place] 1.010 08/08/16 08/08/16 08/08/16 05:15 13:20 13:20 WBC RBC Hgb Hct MCV MCHC RDW Plt Count MPV Neutrophils % Lymphocytes % Monocytes % Band Neutrophils Dohle Bodies Platelet Estimate Platelet Comment Polychromasia Hypochromic-Microcytic PTT (Actin FS) Sodium Potassium Chloride Carbon Dioxide Anion Gap BUN Creatinine Random Glucose Lactic Acid 1.684 Calcium Phosphorus Magnesium Total Bilirubin Direct Bilirubin AST ALT Alkaline Phosphatase Creatine Kinase Cancelled 156 D Creatine Kinase Index 11.8 H* CK-MB (CK-2) 18.446 H CK-MB (CK-2) Rel Index Troponin I Cancelled 6.31 H* D Total Protein Albumin Ur Specific [place] 08/08/16 08/08/16 08/08/16 13:20 13:20 18:30 WBC RBC Hgb Hct MCV MCHC RDW Plt Count MPV Neutrophils % Lymphocytes % Monocytes % Band Neutrophils Dohle Bodies Platelet Estimate Platelet Comment Polychromasia Hypochromic-Microcytic PTT (Actin FS) 80.3 H D Sodium Potassium Chloride Carbon Dioxide Anion Gap BUN Creatinine Random Glucose Lactic Acid Calcium Phosphorus Magnesium Total Bilirubin Direct Bilirubin AST ALT Alkaline Phosphatase Creatine Kinase Creatine Kinase Index CK-MB (CK-2) CK-MB (CK-2) Rel Index Cancelled Troponin I 7.41 H* Total Protein Albumin Ur Specific [place] 08/09/16 08/09/16 08/09/16 05:45 05:45 08:30 WBC 35.9 H* RBC 3.48 L Hgb 10.0 L Hct 30.4 L MCV 87.4 MCHC 33.0 RDW 16.6 H Plt Count 43 L MPV 10.8 Neutrophils % Y Lymphocytes % Y Monocytes % Band Neutrophils Dohle Bodies Platelet Estimate Platelet Comment Polychromasia Hypochromic-Microcytic PTT (Actin FS) Sodium 135 L Potassium 4.4 Chloride 103 Carbon Dioxide 16 L Anion Gap 16 BUN 65 H D Creatinine 5.2 H Random Glucose 90 D Lactic Acid Calcium 7.6 L Phosphorus 3.4 Magnesium 2.3 D Total Bilirubin 7.2 H D Direct Bilirubin 6.1 H D AST 107 H ALT 58 Alkaline Phosphatase 686 H Creatine Kinase 158 Creatine Kinase Index CK-MB (CK-2) CK-MB (CK-2) Rel Index Troponin I 6.99 H* Total Protein 4.4 L Albumin 1.7 L Ur Specific [place] Active Medications Generic Name Dose Route Start Last Admin Trade Name Freq PRN Reason Stop Dose Admin Acetaminophen 1,000 mg 08/08/16 17:16 Ofirmev Injection - IVPB 08/09/16 11:17 Q6H PRN FEVER OR PAIN Fentanyl 25 mcg 08/07/16 16:19 08/07/16 17:38 Sublimaze Injection - IVPUSH 08/10/16 16:20 25 mcg [id number] PRN Administration PAIN Heparin Sodium (Porcine) 5,000 unit 08/08/16 22:00 08/09/16 09:01 Heparin - SQ 5,000 unit BID SUBHA Administration Dopamine HCl/Dextrose 250 mls @ 16.01 mls/hr 08/07/16 17:15 08/08/16 18:27 Dopamine 400 Mg/D5w - IVPB Not Given TITR SUBHA Protocol 5 MCG/KG/MIN Meropenem 500 mg/ Dextrose 100 mls @ 200 mls/hr 08/07/16 22:00 08/09/16 09:01 IVPB 200 mls/hr BID SUBHA Administration Famotidine/Sodium Chloride 50 mls @ 100 mls/hr 08/07/16 22:30 08/09/16 09:01 Pepcid 20 Mg Premixed Ivpb - IVPB 100 mls/hr DAILY SUBHA Administration Norepinephrine Bitartrate 8, 500 mls @ 18.75 mls/hr 08/08/16 06:45 08/09/16 08: 50 000 mcg/ Dextrose IV 37.5 mls/hr TITR SUBHA Administration Protocol 5 MCG/MIN Dextrose/Sodium Chloride 1,000 mls @ 75 mls/hr 08/08/16 11:30 08/08/16 12:00 D5-Ns - IV 75 mls/hr ASDIR SUBHA Administration Midazolam HCl 100 mg/ Sodium 100 mls @ 1 mls/hr 08/08/16 21:00 08/08/16 21:15 Chloride IVPB 3 mls/hr TITR SUBHA Administration Protocol 1 MG/HR Morphine Sulfate 1 mg 08/07/16 08:45 08/07/16 09:43 Morphine Injection - IVPUSH 1 mg Q4H PRN Administration PAIN Nystatin 1 applic 08/08/16 22:00 08/09/16 09:01 Nystop Powder - TP 1 applic BID SUBHA Administration ASSESSMENT/PLAN: 85 yr old man with HTN, aortic stenosis, CAD s/p stents, r-nephroctomy(renal ca) , pancreatic head density found to have choleluithaisis with obstructing CBD, s/ p ERCP with stent placement(unable to undergo sphincterectomy due to anticoagulation) complicated by septic shock requiring ICU admission. - abdominal CT with oral contrast pending today for further evaluation to reassess uptrending wbc - palliative consulted, GOC to be discussed with family ( and 's nieces) , prognosis is poor. Infectious Disease Septic shock with multi-organ failure likely secondary to cholangitis and gram neg bactermia(likley gallbladder as primary source) - ofirmev 1gm IVpb q6hr for fever Abx tx: meropenem 500mg IVPB BID - Day 3 - topical antifungal cream to periumbical area Fluids: avoid fluid overload - D5-NS @75mls/hr Pressure suport: weaned off dopamine, will attempt to wean off norepi Goal MAP>65, CVP 8-12, current CVP 12. Labs: - bld cx pending Consult: Dr. Boggs Cardiovascular Hypotensive, troponins trending up, with echo showing hypokensis and decreased LV function - trend troponins to establish peak, no indication for ASA or heparin drip as this is unlikely due to be ACS - maintain Goal MAP>65, CVP 8-12 consult: dr. ayala Renal oliguric CRISS/ATN due to sepsis induced hypoperfusion, on CKD stage 3 - IVF D5-NS @75ml/hr - monitor I&O, stone in place, urine output 10cc/24hr, to consider HD with family as pt had only one kidney - renal dosing of medications - metabolic acidosis with anion gap, base deficit likely due to lactic acidosis consult: Dr. Medina Pulmonary acute hypoxic respiratory failure - on ventilatory support taper FiO2 to keep Spo2 >90% Gastrointestinal Cholangitis s/p ERCP with biliary stent placement trend LFT's, trending down Abdominal CT scan consult: Dr. Thompson Hematological normocytic anemia - chronic, trend h/h, monitor for bleeding leucocytosis secondary to sepsis thrombocytopenia - likely due to sepsis, r./o DIC; trend fibrinogen and fibrin degradation products maintain platelet >20,000 Dermatological periumbical drainage - topical antifungal Dr Weems consulted for surgical eval; patient is high risk for operative intervention, recommend IR intervention for percutaneous drainage Dr. Carney consulted Neurological sedated, plan to dc sedation to assess mental status DVT: heparin 5000 units SQ BID Diet: NPO Visit type - Emergency Visit Emergency Visit: No - New Patient This patient is new to me today: No - Critical Care Critical Care patient: Yes Total Critical Care Time (in minutes): 45 Critical Care Statement: The care of this patient involved high complexity decision making to prevent further life threatening deterioration of the patient 's condition and/or to evalute & treat vital organ system(s) failure or risk of failure.
--- NOTE | 2016-08-09 11:18 | PN ---
Progress Note (short form) - Note Progress Note: In ICU Intubated Hypotensive on pressors In septic shock Vital Signs Period Temp Pulse Resp BP Sys/Hinkle Pulse Ox Last 24 Hr 98.6 F-100 F 72-87 14-29 95-119/52-84 100-100 Abd soft CBC,CMP WBC 35.9 K/mm3 (4.0-10.0) H* 08/09/16 08:30 RBC 3.48 M/mm3 (4.00-5.60) L 08/09/16 08:30 Hgb 10.0 GM/dL (11.7-16.9) L 08/09/16 08:30 Hct 30.4 % (35.4-49) L 08/09/16 08:30 MCV 87.4 fl (80-96) 08/09/16 08:30 MCHC 33.0 g/dl (32.0-35.9) 08/09/16 08:30 RDW 16.6 % (11.9-15.9) H 08/09/16 08:30 Plt Count 43 K/MM3 (134-434) L 08/09/16 08:30 MPV 10.8 fl (7.5-11.1) 08/09/16 08:30 Neutrophils % Y 08/09/16 08:30 Lymphocytes % Y 08/09/16 08:30 Monocytes % 2.0 % (3.8-10.2) L 08/08/16 05:15 Eosinophils % 0.5 % (0-4.5) 08/07/16 09:00 Basophils % 0.2 % (0-2.0) 08/07/16 09:00 Band Neutrophils 11.0 % (0-10) H D 08/08/16 05:15 Metamyelocytes 5 % (0-2) H D 08/07/16 20:30 Myelocytes 9 % (0-2) H D 08/07/16 20:30 Differential Comment Manual diff done 08/07/16 06:00 Dohle Bodies 1+ 08/08/16 05:15 Platelet Estimate Decreased (NORMAL) 08/08/16 05:15 Platelet Comment No clumping noted 08/08/16 05:15 Polychromasia Few 08/08/16 05:15 Hypochromic-Microcytic Few 08/08/16 05:15 Sodium 135 mmol/L (136-145) L 08/09/16 05:45 Potassium 4.4 mmol/L (3.5-5.1) 08/09/16 05:45 Chloride 103 mmol/L (98-107) 08/09/16 05:45 Carbon Dioxide 16 mmol/L (21-32) L 08/09/16 05:45 Anion Gap 16 (8-16) 08/09/16 05:45 BUN 65 mg/dL (7-18) H D 08/09/16 05:45 Creatinine 5.2 mg/dL (0.7-1.3) H 08/09/16 05:45 Creat Clearance w eGFR 12.79 (>60) 08/08/16 05:15 Random Glucose 90 mg/dL (74-106) D 08/09/16 05:45 Lactic Acid 1.684 mmol/L (0.4-2.0) 08/08/16 13:20 Calcium 7.6 mg/dL (8.5-10.1) L 08/09/16 05:45 Phosphorus 3.4 mg/dL (2.5-4.9) 08/09/16 05:45 Magnesium 2.3 mg/dL (1.8-2.4) D 08/09/16 05:45 Total Bilirubin 7.2 mg/dL (0.2-1.0) H D 08/09/16 05:45 Direct Bilirubin 6.1 mg/dL (0.0-0.2) H D 08/09/16 05:45 AST 107 U/L (15-37) H 08/09/16 05:45 ALT 58 U/L (12-78) 08/09/16 05:45 Alkaline Phosphatase 686 U/L (45-117) H 08/09/16 05:45 Creatine Kinase 158 IU/L (39-308) 08/09/16 05:45 Creatine Kinase Index 11.8 % (0.0-5.0) H* 08/08/16 13:20 CK-MB (CK-2) 18.446 ng/ml (0.5-3.6) H 08/08/16 13:20 CK-MB (CK-2) Rel Index Cancelled 08/08/16 13:20 Troponin I 6.99 ng/ml (0.00-0.05) H* 08/09/16 05:45 C-Reactive Protein 21.5 MG/DL (0.00-0.3) H 08/08/16 05:15 Total Protein 4.4 g/dl (6.4-8.2) L 08/09/16 05:45 Albumin 1.7 g/dl (3.4-5.0) L 08/09/16 05:45 Total Amylase 49 U/L (25-115) D 08/08/16 05:15 Lipase 116 U/L (73-393) 08/08/16 05:15 Continue ICU care Antibiotics Serial LFTs If sepsis does not resolve, consider IR for percutaneous cholecystostomy Discussed with IR yesterday- did not feel that he needed it at that time Problem List - Problems (1) Umbilical discharge Code(s): R19.8 - OTH SYMPTOMS AND SIGNS INVOLVING THE DGSTV SYS AND ABDOMEN
[2016-08-09 11:49] LABS: ARTERIAL BLD GAS O2 SATURATION 99.6 % (90-98.9); ARTERIAL BLOOD GAS BASE EXCESS -10.5 meq/l (-2-2); ARTERIAL BLOOD GAS HCO3 13.8 meq/L (22-26)
[2016-08-09 11:55] LABS: ALLENS TEST POSITIVE; ART PUNCT SITE LEFT RADIAL; LPM/O2% 50%; MECH. VENT. ESPRIT; PT. ON O2? YES; TYPE OF O2 MEC.VENT; VENT RATE 23; VT/PRESS 500
[2016-08-09 11:57] LABS: ARTERIAL BLOOD GAS pH 7.34 (7.35-7.45)
--- NOTE | 2016-08-09 12:16 | PN ---
Progress Note, Physician History of Present Illness: Post ERCP balloon sphincteroplasty and stenting, stone extrction not performed as sphincterotomy high risk for bleeding in the setting of dual antiplatelet therapy, currently in E. coli septic shock on pressors. Sedated and maintained on mechanical ventilation. - Current Medication List Current Medications: Active Medications Fentanyl (Sublimaze Injection -) 25 mcg IVPUSH [id number] PRN PRN Reason: PAIN Stop: 08/10/16 16:20 Last Admin: 08/07/16 17:38 Dose: 25 mcg Heparin Sodium (Porcine) (Heparin -) 5,000 unit SQ BID [facility] Last Admin: 08/09/16 09:01 Dose: 5,000 unit Dopamine HCl/Dextrose (Dopamine 400 Mg/D5w -) 250 mls @ 16.01 mls/hr IVPB TITR [facility]; 5 MCG/KG/MIN PRN Reason: Protocol Last Admin: 08/08/16 18:27 Dose: Not Given Meropenem 500 mg/ Dextrose 100 mls @ 200 mls/hr IVPB BID [facility] Last Admin: 08/09/16 09:01 Dose: 200 mls/hr Famotidine/Sodium Chloride (Pepcid 20 Mg Premixed Ivpb -) 50 mls @ 100 mls/hr IVPB DAILY [facility] Last Admin: 08/09/16 09:01 Dose: 100 mls/hr Norepinephrine Bitartrate 8, (000 mcg/ Dextrose) 500 mls @ 18.75 mls/hr IV TITR [facility]; 5 MCG/MIN PRN Reason: Protocol Last Admin: 08/09/16 08:50 Dose: 37.5 mls/hr Dextrose/Sodium Chloride (D5-Ns -) 1,000 mls @ 75 mls/hr IV ASDIR [facility] Last Admin: 08/08/16 12:00 Dose: 75 mls/hr Midazolam HCl 100 mg/ Sodium (Chloride) 100 mls @ 1 mls/hr IVPB TITR [facility]; 1 MG/ HR PRN Reason: Protocol Last Admin: 08/08/16 21:15 Dose: 3 mls/hr Morphine Sulfate (Morphine Injection -) 1 mg IVPUSH Q4H PRN PRN Reason: PAIN Last Admin: 08/07/16 09:43 Dose: 1 mg Nystatin (Nystop Powder -) 1 applic TP BID [facility] Last Admin: 08/09/16 09:01 Dose: 1 applic - Objective Vital Signs: Vital Signs Temperature 98.9 F 08/09/16 10:00 Pulse Rate 72 08/09/16 12:00 Respiratory Rate 23 08/09/16 12:00 Blood Pressure 112/55 08/09/16 12:00 O2 Sat by Pulse Oximetry (%) 100 08/09/16 09:00 Constitutional: Yes: No Distress, Calm Neck: Yes: Supple Cardiovascular: Yes: Regular Rate and Rhythm Respiratory: Yes: Intubated, Mechanically Ventilated, Rhonchi Gastrointestinal: Yes: Soft, Hypoactive Bowel Sounds Edema: Yes Edema: LLE: Trace, RLE: Trace Labs: CBC, BMP 08/09/16 08:30 08/09/16 05:45 INR, PTT INR 1.34 (0.82-1.09) H 08/08/16 05:15 Fibrinogen 372.0 mg/dL (238-498) 08/09/16 05:45 Problem List - Problems (1) CRISS (acute kidney injury) Code(s): N17.9 - ACUTE KIDNEY FAILURE, UNSPECIFIED (2) Bacteremia due to Gram-negative bacteria Code(s): R78.81 - BACTEREMIA (3) Biliary sepsis Code(s): K83.0 - CHOLANGITIS (4) CAD (coronary artery disease) Code(s): I25.10 - ATHSCL HEART DISEASE OF [place] CORONARY ARTERY W/O ANG PCTRS Qualifiers: Coronary Disease-Associated Artery/Lesion type: unspecified vessel or lesion type [place] vs. transplanted heart: [place] heart Associated angina: without angina Qualified Code(s): I25.10 - Atherosclerotic heart disease of [place] coronary artery without angina pectoris (5) CKD (chronic kidney disease) Code(s): N18.9 - CHRONIC KIDNEY DISEASE, UNSPECIFIED (6) Calculus of common duct with obstruction Code(s): K80.51 - CALCULUS OF BILE DUCT W/O CHOLANGITIS OR CHOLECYST W OBST (7) History of percutaneous coronary intervention Code(s): Z98.890 - OTHER SPECIFIED POSTPROCEDURAL STATES (8) S/P ERCP Code(s): Z98.890 - OTHER SPECIFIED POSTPROCEDURAL STATES (9) Thrombocytopenia Code(s): D69.6 - THROMBOCYTOPENIA, UNSPECIFIED (10) Acute hypoxemic respiratory failure Code(s): J96.01 - ACUTE RESPIRATORY FAILURE WITH HYPOXIA (11) Gram negative septic shock Code(s): A41.50 - GRAM-NEGATIVE SEPSIS, UNSPECIFIED R65.21 - SEVERE SEPSIS WITH SEPTIC SHOCK (12) Left bundle branch block Code(s): I44.7 - LEFT BUNDLE-BRANCH BLOCK, UNSPECIFIED (13) Demand ischemia Code(s): I24.8 - OTHER FORMS OF ACUTE ISCHEMIC HEART DISEASE Assessment/Plan 08/08/2016 Echo: Severely decreased LV fxn, mod-severe RV fxn, mod MR, mild TR, pleural effusion significantly worsened from previous study likely referable to severe sepsis 1. Acute hypoxemic respiratory failure on mechanical ventilation 2. Biliary septic shock (E. coli), cholangitis post ERCP, balloon sphincteroplasty and stent placement with leukocytosis and lactic acidosis 3. Post TAVR for severe 4. CAD, S/P PCI/stent with demand ischemic injury 5. Severe biventricular dysfunction referable to sepsis 6. H/o Hypertension currently hypotensive requiring pressors 7. Renal CA S/P right nephrectomy 8. Anuric acute on CKD referable to sepsis 9. Thrombocytopenia due to sepsis PLAN: 1. Wean Levophed gtt to maintain MAP>65 mmHg. 2. Continue antibiotics coverage as per ID and C&S 3. Trops have peaked, monitor renal trajectory, may require sustained low efficiency dialysis, wean vent per ABG 4. DVT and GI prophylaxis Supervisor: Aubrey Vieyra MD ([facility])
--- NOTE | 2016-08-09 12:19 | PN ---
GI Progress Note Subjective: Remains intubated Continued pressor support Rising WBC No acute events overnight - Objective Vital Signs: Vital Signs Temperature 98.9 F 08/09/16 10:00 Pulse Rate 76 08/09/16 10:00 Respiratory Rate 14 08/09/16 10:00 Blood Pressure 95/52 08/09/16 10:00 O2 Sat by Pulse Oximetry (%) 100 08/09/16 09:00 Constitutional: Calm Eyes: Yes: Sclera Icterus Cardiovascular: Yes: Regular Rate and Rhythm Gastrointestinal Inspection: No: Distention ...Auscultate: Yes: Normoactive Bowel Sounds ...Palpate: No: Tenderness (No grimacing upon palpation) ...Percussion: No: Tympanitic Edema: LUE: 1+, RUE: 1+, LLE: 2+, RLE: 2+ Neurological: Yes: Other (sedated) Labs: CBC, BMP 08/09/16 08:30 08/09/16 05:45 INR, PTT INR 1.34 (0.82-1.09) H 08/08/16 05:15 Fibrinogen 372.0 mg/dL (238-498) 08/09/16 05:45 Hepatic Panel Total Bilirubin 7.2 mg/dL (0.2-1.0) H D 08/09/16 05:45 Direct Bilirubin 6.1 mg/dL (0.0-0.2) H D 08/09/16 05:45 AST 107 U/L (15-37) H 08/09/16 05:45 ALT 58 U/L (12-78) 08/09/16 05:45 Alkaline Phosphatase 686 U/L (45-117) H 08/09/16 05:45 Albumin 1.7 g/dl (3.4-5.0) L 08/09/16 05:45 Laboratory Tests 08/08/16 08/08/16 08/09/16 05:15 05:15 05:45 Total Bilirubin 9.3 H 7.2 H D Direct Bilirubin 7.7 H 6.1 H D AST 121 H 107 H ALT 67 58 Alkaline Phosphatase 803 H 686 H Problem List - Problems (1) Choledocholithiasis Assessment/Plan: Clinically Bcateremis, septick shoock Slow imporvement of liver chemistries s/p ERCP with stent placement Ordered repeat CT scan of the abdomen and pelvis with PO contrast to reassess given rising WBC Poor prognosis Code(s): K80.50 - CALCULUS OF BILE DUCT W/O CHOLANGITIS OR CHOLECYST W/O OBST
[2016-08-09] MEDS: DEXTROSE 5%-NORMAL SALINE 1,000 ML IV SCH (13:34)
--- NOTE | 2016-08-09 13:38 | PN ---
Teaching Attending Note Name of Resident: Darryl Olmedo ATTENDING PHYSICIAN STATEMENT I saw and evaluated the patient. I reviewed the resident's note and discussed the case with the resident. I agree with the resident's findings and plan as documented. SUBJECTIVE: Pt seen and examined in the ICU. Remains intubated, sedated. On levophed gtt, off dopamine gtt. OBJECTIVE: Last Vital Signs Temp Pulse Resp BP Pulse Ox 98.9 F 72 23 112/55 100 08/09/16 10:00 08/09/16 12:00 08/09/16 12:18 08/09/16 12:00 08/09/16 09:00 Intake & Output 08/06/16 08/07/16 08/08/16 08/09/16 23:59 23:59 23:59 23:59 Intake Total 4050 4459 2486 Output Total 300 510 0 Balance 3750 3949 2486 Weight 188 lb 188 lb 4 oz 203 lb 7.787 oz 211 lb 6.773 oz Gen: intubated, sedated, jaundiced Heart: RRR Lung: decreased breath sounds at the bases Abd: soft, nontender Ext: no edema CBC, BMP 08/09/16 08:30 08/09/16 05:45 INR, PTT INR 1.34 (0.82-1.09) H 08/08/16 05:15 Fibrinogen 372.0 mg/dL (238-498) 08/09/16 05:45 Active Medications Fentanyl (Sublimaze Injection -) 25 mcg IVPUSH [id number] PRN PRN Reason: PAIN Stop: 08/10/16 16:20 Last Admin: 08/07/16 17:38 Dose: 25 mcg Heparin Sodium (Porcine) (Heparin -) 5,000 unit SQ BID [facility] Last Admin: 08/09/16 09:01 Dose: 5,000 unit Dopamine HCl/Dextrose (Dopamine 400 Mg/D5w -) 250 mls @ 16.01 mls/hr IVPB TITR [facility]; 5 MCG/KG/MIN PRN Reason: Protocol Last Admin: 08/08/16 18:27 Dose: Not Given Meropenem 500 mg/ Dextrose 100 mls @ 200 mls/hr IVPB BID [facility] Last Admin: 08/09/16 09:01 Dose: 200 mls/hr Famotidine/Sodium Chloride (Pepcid 20 Mg Premixed Ivpb -) 50 mls @ 100 mls/hr IVPB DAILY [facility] Last Admin: 08/09/16 09:01 Dose: 100 mls/hr Norepinephrine Bitartrate 8, (000 mcg/ Dextrose) 500 mls @ 18.75 mls/hr IV TITR SUBHA; 5 MCG/MIN PRN Reason: Protocol Last Admin: 08/09/16 08:50 Dose: 37.5 mls/hr Dextrose/Sodium Chloride (D5-Ns -) 1,000 mls @ 75 mls/hr IV ASDIR [facility] Last Admin: 08/09/16 13:34 Dose: 75 mls/hr Morphine Sulfate (Morphine Injection -) 1 mg IVPUSH Q4H PRN PRN Reason: PAIN Last Admin: 08/07/16 09:43 Dose: 1 mg Nystatin (Nystop Powder -) 1 applic TP BID [facility] Last Admin: 08/09/16 09:01 Dose: 1 applic ASSESSMENT AND PLAN: Acute Cholangitis Gram Negative Bacteremia s/p ERCP/sphincteroplasty/stent placement Acute Hypoxic Respiratory Failure Septic Shock Acute on Chronic Renal Failure Lactic Acidosis CAD +Troponins likely Demand Ischemia s/p TAVR for severe Aortic Stenosis Thrombocytopenia - continue antibiotics - f/u final cultures - repeat ERCP with sphincterotomy when plavix effect diminished - IVF to keep CVP 8-12 - titrate pressors to maintain MAP >65 - taper FiO2 to keep SpO2 >90% - monitor platelets/coags/fibrinogen levels - trend troponins to document peak - monitor urine output, creatinine - trend lactate - NPO - lighten sedation to assess mental status - spontaneous breathing trials when mental status improved - DVT/GI prophylaxis - continue ICU monitoring critical care time spent in reviewing chart, evaluating patient and formulating plan 40 min
[2016-08-09 14:43] LABS: PLATELET ESTIMATE DECREASED (NORMAL)
--- NOTE | 2016-08-09 16:35 | PN ---
Progress Note, Physician History of Present Illness: Pt seen and examined at bedside. He remains in the ICU. Pt remains intubated. and niece are at bedside and care was discussed with them. - Current Medication List Current Medications: Active Medications Fentanyl (Sublimaze Injection -) 25 mcg IVPUSH [id number] PRN PRN Reason: PAIN Stop: 08/10/16 16:20 Last Admin: 08/07/16 17:38 Dose: 25 mcg Heparin Sodium (Porcine) (Heparin -) 5,000 unit SQ BID [facility] Last Admin: 08/09/16 09:01 Dose: 5,000 unit Meropenem 500 mg/ Dextrose 100 mls @ 200 mls/hr IVPB BID [facility] Last Admin: 08/09/16 09:01 Dose: 200 mls/hr Famotidine/Sodium Chloride (Pepcid 20 Mg Premixed Ivpb -) 50 mls @ 100 mls/hr IVPB DAILY [facility] Last Admin: 08/09/16 09:01 Dose: 100 mls/hr Norepinephrine Bitartrate 8, (000 mcg/ Dextrose) 500 mls @ 18.75 mls/hr IV TITR [facility]; 5 MCG/MIN PRN Reason: Protocol Last Admin: 08/09/16 08:50 Dose: 37.5 mls/hr Dextrose/Sodium Chloride (D5-Ns -) 1,000 mls @ 75 mls/hr IV ASDIR [facility] Last Admin: 08/09/16 13:34 Dose: 75 mls/hr Morphine Sulfate (Morphine Injection -) 1 mg IVPUSH Q4H PRN PRN Reason: PAIN Last Admin: 08/07/16 09:43 Dose: 1 mg Nystatin (Nystop Powder -) 1 applic TP BID [facility] Last Admin: 08/09/16 09:01 Dose: 1 applic - Objective Vital Signs: Vital Signs Temperature 99 F 08/09/16 15:03 Pulse Rate 72 08/09/16 15:03 Respiratory Rate 19 08/09/16 15:07 Blood Pressure 121/61 08/09/16 15:03 O2 Sat by Pulse Oximetry (%) 100 08/09/16 10:35 Constitutional: Yes: Calm Eyes: Yes: Sclera Icterus Cardiovascular: Yes: S1, S2 Respiratory: Yes: Mechanically Ventilated Gastrointestinal: Yes: Soft Genitourinary: Yes: [place] Present, Oliguria Musculoskeletal: Yes: Muscle Weakness Edema: Yes Edema: LUE: 1+, RUE: 1+, LLE: 1+, RLE: 1+ Neurological: Yes: Lethargy Labs: CBC, BMP 08/09/16 08:30 08/09/16 05:45 INR, PTT INR 1.34 (0.82-1.09) H 08/08/16 05:15 Fibrinogen 372.0 mg/dL (238-498) 08/09/16 05:45 - ....Imaging Chest X-ray: Report Reviewed Problem List - Problems (1) CAD (coronary artery disease) Code(s): I25.10 - ATHSCL HEART DISEASE OF [place] CORONARY ARTERY W/O ANG PCTRS Qualifiers: Coronary Disease-Associated Artery/Lesion type: unspecified vessel or lesion type [place] vs. transplanted heart: [place] heart Associated angina: without angina Qualified Code(s): I25.10 - Atherosclerotic heart disease of [place] coronary artery without angina pectoris (2) Calculus of common duct with obstruction Code(s): K80.51 - CALCULUS OF BILE DUCT W/O CHOLANGITIS OR CHOLECYST W OBST (3) Choledocholithiasis Code(s): K80.50 - CALCULUS OF BILE DUCT W/O CHOLANGITIS OR CHOLECYST W/O OBST (4) Renal cancer Code(s): C64.9 - MALIGNANT NEOPLASM OF UNSP KIDNEY, EXCEPT RENAL PELVIS Qualifiers: Laterality: right Qualified Code(s): C64.1 - Malignant neoplasm of right kidney, except renal pelvis (5) CRISS (acute kidney injury) Code(s): N17.9 - ACUTE KIDNEY FAILURE, UNSPECIFIED (6) CKD (chronic kidney disease) Code(s): N18.9 - CHRONIC KIDNEY DISEASE, UNSPECIFIED Assessment/Plan Current Medications Generic Name Dose Route Start Last Admin Trade Name Freq PRN Reason Stop Dose Admin Fentanyl 25 mcg 08/07/16 16:19 08/07/16 17:38 Sublimaze Injection - IVPUSH 08/10/16 16:20 25 mcg [id number] PRN Administration PAIN Heparin Sodium (Porcine) 5,000 unit 08/08/16 22:00 08/09/16 09:01 Heparin - SQ 5,000 unit BID [facility] Administration Meropenem 500 mg/ Dextrose 100 mls @ 200 mls/hr 08/07/16 22:00 08/09/16 09:01 IVPB 200 mls/hr BID [facility] Administration Famotidine/Sodium Chloride 50 mls @ 100 mls/hr 08/07/16 22:30 08/09/16 09:01 Pepcid 20 Mg Premixed Ivpb - IVPB 100 mls/hr DAILY [facility] Administration Norepinephrine Bitartrate 8, 500 mls @ 18.75 mls/hr 08/08/16 06:45 08/09/16 08: 50 000 mcg/ Dextrose IV 37.5 mls/hr TITR [facility] Administration Protocol 5 MCG/MIN Dextrose/Sodium Chloride 1,000 mls @ 75 mls/hr 08/08/16 11:30 08/09/16 13:34 D5-Ns - IV 75 mls/hr ASDIR [facility] Administration Morphine Sulfate 1 mg 08/07/16 08:45 08/07/16 09:43 Morphine Injection - IVPUSH 1 mg Q4H PRN Administration PAIN Nystatin 1 applic 08/08/16 22:00 08/09/16 09:01 Nystop Powder - TP 1 applic BID [facility] Administration Impression 1. CKD stage 3 2. CRISS 3. choledocholithiasis 4. CAD 5. hx of Renal Cell Cancer s/p nephroectomy 6. aortic stenosis 7. sepsis 8. acute respiratory failure requiring intubation 9. NSTEMI 10. bacteremia Plan - monitor urine output - cont pressors - likely atn from hypotension - monitor blood pressure - vent support - discussed possibility of HD with family, will re-evaluate in am - discussed with ICU team - monitor in ICU Dr Medina
--- NOTE | 2016-08-09 18:06 | PN ---
Physical Exam: SUBJECTIVE: Patient seen and examined. He is intubated/sedated. OBJECTIVE: Worsening leukocytosis s/p ERCP on 08/07/2016 Now in septic shock Vital Signs Period Temp Pulse Resp BP Sys/Hinkle Pulse Ox Last 24 Hr 98.6 F-99.7 F 72-80 14-24 95-121/52-62 100-100 GENERAL: Intubated/sedated HEAD: Normal with no signs of trauma. NECK: Normal range of motion, supple without lymphadenopathy, JVD, or masses. LUNGS: Breath sounds equal, clear to auscultation bilaterally. No wheezes, and no crackles HEART: Regular rate and rhythm, normal S1 and S2, rub or gallop. ABDOMEN: +erythema, sero/sang malodorous drainage to periumbilical region. MUSCULOSKELETAL: Normal range of motion at all joints. No bony deformities. No CVA tenderness. UPPER EXTREMITIES: 2+ pulses, warm, well-perfused. No cyanosis. No clubbing. No peripheral edema. NEUROLOGICAL: sedated PSYCHIATRIC: sedated SKIN: generalized jaundice Laboratory Results - last 24 hr 08/08/16 08/08/16 08/09/16 05:15 18:30 05:45 WBC RBC Hgb Hct MCV MCHC RDW Plt Count MPV Neutrophils % 85.0 H D Lymphocytes % 2.0 L D Monocytes % 2.0 L Band Neutrophils 11.0 H D Differential Comment Dohle Bodies 1+ Platelet Estimate Decreased Platelet Comment No clumping noted Polychromasia Few Hypochromic-Microcytic Few Fibrinogen Fibrin Degrad Products Puncture Site ABG pH ABG pCO2 at Pt Temp ABG pO2 at Pt Temp ABG HCO3 ABG O2 Sat (Measured) ABG O2 Content ABG Base Excess Marvin Test O2 Delivery Device Oxygen Flow Rate Vent Mode Vent Rate Mechanical Rate PEEP Pressure Support Vent Sodium 135 L Potassium 4.4 Chloride 103 Carbon Dioxide 16 L Anion Gap 16 BUN 65 H D Creatinine 5.2 H Random Glucose 90 D Calcium 7.6 L Phosphorus 3.4 Magnesium 2.3 D Total Bilirubin 7.2 H D Direct Bilirubin 6.1 H D AST 107 H ALT 58 Alkaline Phosphatase 686 H Creatine Kinase Troponin I 7.41 H* Total Protein 4.4 L Albumin 1.7 L 08/09/16 08/09/16 08/09/16 05:45 05:45 08:30 WBC 35.9 H* RBC 3.48 L Hgb 10.0 L Hct 30.4 L MCV 87.4 MCHC 33.0 RDW 16.6 H Plt Count 43 L MPV 10.8 Neutrophils % 96.0 H Lymphocytes % 3.0 L D Monocytes % 1.0 L Band Neutrophils Differential Comment Manual diff done Dohle Bodies Platelet Estimate Decreased Platelet Comment Polychromasia Hypochromic-Microcytic Fibrinogen 372.0 Fibrin Degrad Products >10 & <40 Puncture Site ABG pH ABG pCO2 at Pt Temp ABG pO2 at Pt Temp ABG HCO3 ABG O2 Sat (Measured) ABG O2 Content ABG Base Excess Marvin Test O2 Delivery Device Oxygen Flow Rate Vent Mode Vent Rate Mechanical Rate PEEP Pressure Support Vent Sodium Potassium Chloride Carbon Dioxide Anion Gap BUN Creatinine Random Glucose Calcium Phosphorus Magnesium Total Bilirubin Direct Bilirubin AST ALT Alkaline Phosphatase Creatine Kinase 158 Troponin I 6.99 H* Total Protein Albumin 08/09/16 08/09/16 11:45 13:30 WBC RBC Hgb Hct MCV MCHC RDW Plt Count MPV Neutrophils % Lymphocytes % Monocytes % Band Neutrophils Differential Comment Dohle Bodies Platelet Estimate Platelet Comment Polychromasia Hypochromic-Microcytic Fibrinogen Fibrin Degrad Products Puncture Site Left radial ABG pH 7.34 L ABG pCO2 at Pt Temp 26.5 L ABG pO2 at Pt Temp 183.0 H* ABG HCO3 13.8 L* ABG O2 Sat (Measured) 99.6 H* ABG O2 Content 14.6 L ABG Base Excess -10.5 L* Marvin Test Positive O2 Delivery Device Mec.vent Oxygen Flow Rate 50% Vent Mode A/c Vent Rate 23 Mechanical Rate Esprit PEEP 5.0 Pressure Support Vent 500 Sodium Potassium Chloride Carbon Dioxide Anion Gap BUN Creatinine Random Glucose Calcium Phosphorus Magnesium Total Bilirubin Direct Bilirubin AST ALT Alkaline Phosphatase Creatine Kinase Troponin I 4.89 H* D Total Protein Albumin Active Medications Generic Name Dose Route Start Last Admin Trade Name Freq PRN Reason Stop Dose Admin Fentanyl 25 mcg 08/07/16 16:19 08/07/16 17:38 Sublimaze Injection - IVPUSH 08/10/16 16:20 25 mcg [id number] PRN Administration PAIN Heparin Sodium (Porcine) 5,000 unit 08/08/16 22:00 08/09/16 09:01 Heparin - SQ 5,000 unit BID [facility] Administration Meropenem 500 mg/ Dextrose 100 mls @ 200 mls/hr 08/07/16 22:00 08/09/16 09:01 IVPB 200 mls/hr BID [facility] Administration Famotidine/Sodium Chloride 50 mls @ 100 mls/hr 08/07/16 22:30 08/09/16 09:01 Pepcid 20 Mg Premixed Ivpb - IVPB 100 mls/hr DAILY [facility] Administration Norepinephrine Bitartrate 8, 500 mls @ 18.75 mls/hr 08/08/16 06:45 08/09/16 17: 00 000 mcg/ Dextrose IV 6 mcg/min TITR [facility] Titration Protocol 5 MCG/MIN Dextrose/Sodium Chloride 1,000 mls @ 75 mls/hr 08/08/16 11:30 08/09/16 13:34 D5-Ns - IV 75 mls/hr ASDIR [facility] Administration Morphine Sulfate 1 mg 08/07/16 08:45 08/07/16 09:43 Morphine Injection - IVPUSH 1 mg Q4H PRN Administration PAIN Nystatin 1 applic 08/08/16 22:00 08/09/16 09:01 Nystop Powder - TP 1 applic BID [facility] Administration ASSESSMENT/PLAN: Patient is a 85 year old male with a significant past medical history of hypertension, CAD s/p stent placement, aortic stenosis, porcine valve replacement (takes both ASA 81mg and Plavix 75mg), 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 He was admitted on 08/06/2016 for abdominal pain, acute choledocholithiasis, acute transaminitis, jaundice and leukocytosis and shaking chills. ID: Septic Shock likely secondary to periumbilicus cellulitis vs. cholangitis Periumbilical cellulitis - chronic Assessment: Wound culture pending Likely will need drainage from this site foul odor with some sero sang/clear discharge On Enterpenem since 08/07 Surgical consult for likely drainage of abscess once pt more stable blood cultures pending, ID following Now intubated/sedated/on pressors GI: Acute Choledocholithiasis/abdominal pain/generalized jaundice/acute transaminitis Assessment/Plan: Cholangitis s/p ERCP with biliary stent placement on 08/07 Trend LFT's On Enterpenem per ID since 08/07 Blood cultures ordered Intubated after procedure, on pressorrs : Chronic Kidney Disease - acute renal failure Renal cancer s/p right nephrectomy Assessment/Plan: Creatinine 5.2, baseline ~ 1.7 Renal consulted and following, pt may need dialysis if continues to trend up as per renal On IVF, Trend bun/creat. Cardiology: Hypertension - chronic Assessment/Plan: hypotensive now, on pressors Elevated troponins - acute Assessment/Plan: Troponins continue to trend up, peaked at 7.4 Likely secondary demand ischemia and sepsis Continue to trend troponins Last Puller following CAD s/p stent placement On ASA 81mg and Plavix 75mg - on hold Hematology: Thrombocytopenia Assessment/Plan: likely secondary to sepsis Monitor F.E.N. Fluids: d5 NS @75cc/hr Electrolytes: monitor bmp Nutrition: intubated/npo Prophylaxis: DVT: SCDs, Heparin BID GI: Protonix Code Status: Requires inpatient hospitalization. Full Code Visit type - Emergency Visit Emergency Visit: Yes ED Registration Date: 08/06/16 Care time: The patient presented to the Emergency Department on the above date and was hospitalized for further evaluation of their emergent condition. - New Patient This patient is new to me today: No - Critical Care Critical Care patient: Yes Total Critical Care Time (in minutes): 45 Critical Care Statement: The care of this patient involved high complexity decision making to prevent further life threatening deterioration of the patient 's condition and/or to evalute & treat vital organ system(s) failure or risk of failure. - Discharge Referral Referred to [facility] No
[2016-08-09] MEDS ORDERED: BENZOIN/ALOE VERA/STORAX/TOLU 58 ML BOTTLE ONE (18:56)
[2016-08-10] MEDS ORDERED: NOREPINEPHRINE BITARTRATE 4 MG/4 ML ML IV ONE (01:02)
[2016-08-10 06:18] LABS: MCHC 33.5 g/dl (32.0-35.9); MEAN CELL VOLUME 86.8 fl (80-96); MEAN PLT VOLUME 10.5 fl (7.5-11.1); PLATELET COUNT 38 K/MM3 (134-434); RDW 17.2 % (11.9-15.9)
[2016-08-10] MEDS: NOREPINEPHRINE BITARTRATE 8,000 MCG in DEXTROSE 5%-WATER - 492 ML IV SCH ×2 (06:45→23:35)
[2016-08-10 06:59] LABS: MAGNESIUM 2.1 mg/dL (1.8-2.4); PHOSPHOROUS 3.8 mg/dL (2.5-4.9)
[2016-08-10 07:01] LABS: ALBUMIN 1.4 g/dl (3.4-5.0); CALCIUM 7.4 mg/dL (8.5-10.1)
[2016-08-10 07:07] LABS: BILIRUBIN,TOTAL 5.8 mg/dL (0.2-1.0); CREATININE 5.8 mg/dL (0.7-1.3); TOT PROT 3.8 g/dl (6.4-8.2)
--- NOTE | 2016-08-10 07:15 | PN ---
Progress Note, Physician Chief Complaint: ID Remains intubated in the ICU Requiring Levophed though dose coming down. He is on Meropenem this given pending the result of final culture now identitifed as a sensitive E Coli. Source is the biliary tract - Current Medication List Current Medications: Active Medications Fentanyl (Sublimaze Injection -) 25 mcg IVPUSH [id number] PRN PRN Reason: PAIN Stop: 08/10/16 16:20 Last Admin: 08/07/16 17:38 Dose: 25 mcg Heparin Sodium (Porcine) (Heparin -) 5,000 unit SQ BID [facility] Last Admin: 08/09/16 23:34 Dose: 5,000 unit Meropenem 500 mg/ Dextrose 100 mls @ 200 mls/hr IVPB BID [facility] Last Admin: 08/09/16 23:34 Dose: 200 mls/hr Famotidine/Sodium Chloride (Pepcid 20 Mg Premixed Ivpb -) 50 mls @ 100 mls/hr IVPB DAILY [facility] Last Admin: 08/09/16 09:01 Dose: 100 mls/hr Norepinephrine Bitartrate 8, (000 mcg/ Dextrose) 500 mls @ 18.75 mls/hr IV TITR SUBHA; 5 MCG/MIN PRN Reason: Protocol Last Titration: 08/10/16 02:30 Dose: 4 mcg/min Dextrose/Sodium Chloride (D5-Ns -) 1,000 mls @ 75 mls/hr IV ASDIR [facility] Last Admin: 08/09/16 13:34 Dose: 75 mls/hr Morphine Sulfate (Morphine Injection -) 1 mg IVPUSH Q4H PRN PRN Reason: PAIN Last Admin: 08/07/16 09:43 Dose: 1 mg Nystatin (Nystop Powder -) 1 applic TP BID [facility] Last Admin: 08/09/16 23:35 Dose: 1 applic - Objective Vital Signs: Vital Signs Temperature 98.3 F 08/10/16 06:00 Pulse Rate 64 08/10/16 06:00 Respiratory Rate 18 08/10/16 06:07 Blood Pressure 98/56 08/10/16 06:00 O2 Sat by Pulse Oximetry (%) 100 08/09/16 10:35 Constitutional: Yes: Other (Intubated) HENT: Yes: Other (Et tube) Neck: Yes: WNL, Supple Cardiovascular: Yes: Regular Rate and Rhythm, S1, S2. No: Murmur Respiratory: Yes: WNL, Regular, CTA Bilaterally. No: Rales, Rhonchi Gastrointestinal: Yes: WNL, Normal Bowel Sounds, Soft, Other (Umbilicus has a fungal rash evident improving). No: Tenderness, Epigastrium, Tenderness, Rebound Extremities: No: Cold, Cool, Cyanosis Edema: No Labs: INR, PTT INR 1.34 (0.82-1.09) H 08/08/16 05:15 Fibrinogen 372.0 mg/dL (238-498) 08/09/16 05:45 Problem List - Problems (1) Biliary sepsis Code(s): K83.0 - CHOLANGITIS (2) Bacteremia due to Gram-negative bacteria Code(s): R78.81 - BACTEREMIA (3) Thrombocytopenia Code(s): D69.6 - THROMBOCYTOPENIA, UNSPECIFIED Assessment/Plan Microbiology 08/07/16 10:42 Blood - Peripheral Venous Blood Culture - Final Escherichia Coli 08/07/16 10:40 Blood - Peripheral Venous Blood Culture - Final Escherichia Coli 08/06/16 18:30 Abdomen Gram Stain - Final 08/06/16 18:30 Abdomen Wound Culture - Final Staphylococcus Coagulase Neg Diphtheroid/Corynebacterium Streptococcus Viridans Laboratory Tests 08/08/16 08/09/16 08/09/16 05:15 05:45 05:45 WBC 31.1 H* Hgb Hct Plt Count ABG pH Oxygen Flow Rate BUN 65 H D Creatinine 5.2 H ALT 58 Alkaline Phosphatase 686 H Troponin I 6.99 H* 08/09/16 08/09/16 08/09/16 08:30 11:45 13:30 WBC 35.9 H* Hgb 10.0 L Hct 30.4 L Plt Count 43 L ABG pH 7.34 L Oxygen Flow Rate 50% BUN Creatinine ALT Alkaline Phosphatase Troponin I 4.89 H* D 08/10/16 05:35 WBC Hgb Hct Plt Count ABG pH Oxygen Flow Rate BUN Pending Creatinine Pending ALT Alkaline Phosphatase Troponin I Assessment Severe sepsis syndrome biliary source Post ERCP with stent placement Elevated TNI secondary demand ischemia sepsis Respiratory failure E Coli bacteremia Leukomoid response History TAVR Acute renal failure Plan Do not need carbepenem at this point Cefazolin adjusted for renal failure CT scan ordered report pending doubt abscess but reasonable to check in light of WBC elevation ESR CRP GI follow up Critical time spent 38 minutes Fred SCOTT
[2016-08-10 07:27] LABS: ARTERIAL BLD GAS O2 SATURATION 99.3 % (90-98.9); ARTERIAL BLOOD GAS HCO3 13.6 meq/L (22-26); ARTERIAL BLOOD GAS pH 7.32 (7.35-7.45)
[2016-08-10 07:29] LABS: ALLENS TEST POSITIVE; ART PUNCT SITE RIGHT RADIAL; LPM/O2% 40%; MECH. VENT. YES; PT. ON O2? YES; TYPE OF O2 VENT; VENT RATE 14; VT/PRESS 500
[2016-08-10 07:45] LABS: TROPONIN I 3.1 ng/ml (0.00-0.05)
[2016-08-10] MEDS: FAMOTIDINE 20 MG/50 ML IVPB 50 ML IVPB SCH (09:00)
[2016-08-10] MEDS: NYSTATIN POWDER 100,000 UNITS/GM - 15 GM TOPICAL POWDER TP SCH ×2 (09:00→21:18)
[2016-08-10] MEDS: DEXTROSE 5%-NORMAL SALINE 1,000 ML IV SCH ×2 (11:30)
--- NOTE | 2016-08-10 11:36 | PN ---
Teaching Attending Note Name of Resident: Darryl Olmedo ATTENDING PHYSICIAN STATEMENT I saw and evaluated the patient. I reviewed the resident's note and discussed the case with the resident. I agree with the resident's findings and plan as documented. SUBJECTIVE: Patient seen and examined in the ICU. Remains intubated on AC mode of vent. Poorly responsive. Remains on Levophed drip for hemodynamic support. CXR: Some mild improvement in basilar airspace disease. OBJECTIVE: Last Vital Signs Temp Pulse Resp BP Pulse Ox 98.9 F 72 23 112/55 100 08/09/16 10:00 08/09/16 12:00 08/09/16 12:18 08/09/16 12:00 08/09/16 09:00 Intake & Output 08/06/16 08/07/16 08/08/16 08/09/16 23:59 23:59 23:59 23:59 Intake Total 4050 4459 2486 Output Total 300 510 0 Balance 3750 3949 2486 Weight 188 lb 188 lb 4 oz 203 lb 7.787 oz 211 lb 6.773 oz Gen: intubated, poorly responsive Heart: RRR Lung: decreased breath sounds at the bases Abd: soft, nontender Ext: no edema Laboratory Results - last 24 hr 08/09/16 08/09/16 08/09/16 05:45 08:30 11:45 WBC RBC Hgb Hct MCV MCHC RDW Plt Count MPV Neutrophils % 96.0 H Lymphocytes % 3.0 L D Monocytes % 1.0 L Differential Comment Manual diff done Platelet Estimate Decreased PTT (Actin FS) Puncture Site Left radial ABG pH 7.34 L ABG pCO2 at Pt Temp 26.5 L ABG pO2 at Pt Temp 183.0 H* ABG HCO3 13.8 L* ABG O2 Sat (Measured) 99.6 H* ABG O2 Content 14.6 L ABG Base Excess -10.5 L* Marvin Test Positive O2 Delivery Device Mec.vent Oxygen Flow Rate 50% Vent Mode A/c Vent Rate 23 Mechanical Rate Esprit PEEP 5.0 Pressure Support Vent 500 Sodium Potassium Chloride Carbon Dioxide Anion Gap BUN Creatinine Creat Clearance w eGFR Random Glucose Calcium Phosphorus Magnesium Total Bilirubin AST ALT Alkaline Phosphatase CK-MB (CK-2) Rel Index Cancelled Troponin I Total Protein Albumin 08/09/16 08/10/16 08/10/16 13:30 05:35 05:35 WBC 19.0 H D RBC 3.09 L Hgb 9.0 L Hct 26.8 L MCV 86.8 MCHC 33.5 RDW 17.2 H Plt Count 38 L MPV 10.5 Neutrophils % Lymphocytes % Monocytes % Differential Comment Platelet Estimate PTT (Actin FS) 33.6 D Puncture Site ABG pH ABG pCO2 at Pt Temp ABG pO2 at Pt Temp ABG HCO3 ABG O2 Sat (Measured) ABG O2 Content ABG Base Excess Marvin Test O2 Delivery Device Oxygen Flow Rate Vent Mode Vent Rate Mechanical Rate PEEP Pressure Support Vent Sodium Potassium Chloride Carbon Dioxide Anion Gap BUN Creatinine Creat Clearance w eGFR Random Glucose Calcium Phosphorus Magnesium Total Bilirubin AST ALT Alkaline Phosphatase CK-MB (CK-2) Rel Index Troponin I 4.89 H* D Total Protein Albumin 08/10/16 08/10/16 08/10/16 05:35 05:35 07:15 WBC RBC Hgb Hct MCV MCHC RDW Plt Count MPV Neutrophils % Lymphocytes % Monocytes % Differential Comment Platelet Estimate PTT (Actin FS) Puncture Site Right radial ABG pH 7.32 L ABG pCO2 at Pt Temp 27.4 L ABG pO2 at Pt Temp 158.0 H* D ABG HCO3 13.6 L* ABG O2 Sat (Measured) 99.3 H ABG O2 Content 15.3 ABG Base Excess -11.0 L* Marvin Test Positive O2 Delivery Device Vent Oxygen Flow Rate 40% Vent Mode A/c Vent Rate 14 Mechanical Rate Yes PEEP 5.0 Pressure Support Vent 500 Sodium 134 L Potassium 4.4 Chloride 103 Carbon Dioxide 15 L Anion Gap 16 BUN 67 H Creatinine 5.8 H Creat Clearance w eGFR 9.30 Random Glucose 86 Calcium 7.4 L Phosphorus 3.8 Magnesium 2.1 Total Bilirubin 5.8 H AST 93 H ALT 49 Alkaline Phosphatase 619 H CK-MB (CK-2) Rel Index Troponin I 3.10 H* D Total Protein 3.8 L Albumin 1.4 L ASSESSMENT AND PLAN: Acute Cholangitis Gram Negative Bacteremia s/p ERCP/sphincteroplasty/stent placement Acute Hypoxic Respiratory Failure Septic Shock Acute on Chronic Renal Failure Lactic Acidosis CAD +Troponins likely Demand Ischemia s/p TAVR for severe Aortic Stenosis Thrombocytopenia - ABX per ID - Repeat ERCP with sphincterotomy when plavix effect diminished - IVF to keep CVP 8-12 - titrate pressors to maintain MAP >65 - taper FiO2 to keep SpO2 >90% - monitor platelets/coags/fibrinogen levels - monitor urine output, creatinine - Monitor off sedation to assess mental status - spontaneous breathing trials when mental status improved - DVT/GI prophylaxis - continue ICU monitoring Dr Ledesma critical care time spent in reviewing chart, evaluating patient and formulating plan 40 min
[2016-08-10] MEDS: HEPARIN NA (PORCINE) 5,000 UNITS/ML 1ML VIAL SQ SCH ×2 (11:53→21:15)
[2016-08-10] MEDS ORDERED: PT OWN MED DRAWER 7, Y5N ONE ×2 (12:36→20:23)
[2016-08-10] MEDS: CEFAZOLIN 0.5 GM in DEXTROSE 5%-WATER - 50 ML IVPB SCH ×2 (13:09→21:15)
--- NOTE | 2016-08-10 14:21 | PN ---
Progress Note, Physician History of Present Illness: Post ERCP balloon sphincteroplasty and stenting, stone extraction not performed as sphincterotomy high risk for bleeding in the setting of dual antiplatelet therapy, currently in E. coli septic shock on pressors. Sedated and maintained on mechanical ventilation. - Current Medication List Current Medications: Active Medications Fentanyl (Sublimaze Injection -) 25 mcg IVPUSH [id number] PRN PRN Reason: PAIN Stop: 08/10/16 16:20 Last Admin: 08/07/16 17:38 Dose: 25 mcg Heparin Sodium (Porcine) (Heparin -) 5,000 unit SQ BID [facility] Last Admin: 08/10/16 11:53 Dose: 5,000 unit Famotidine/Sodium Chloride (Pepcid 20 Mg Premixed Ivpb -) 50 mls @ 100 mls/hr IVPB DAILY [facility] Last Admin: 08/10/16 09:00 Dose: 100 mls/hr Norepinephrine Bitartrate 8, (000 mcg/ Dextrose) 500 mls @ 18.75 mls/hr IV TITR SUBHA; 5 MCG/MIN PRN Reason: Protocol Last Admin: 08/10/16 06:45 Dose: Not Given Dextrose/Sodium Chloride (D5-Ns -) 1,000 mls @ 75 mls/hr IV ASDIR [facility] Last Admin: 08/10/16 11:30 Dose: 75 mls/hr Cefazolin Sodium 0.5 gm/ (Dextrose) 50 mls @ 100 mls/hr IVPB BID [facility] Last Admin: 08/10/16 13:09 Dose: 100 mls/hr Nystatin (Nystop Powder -) 1 applic TP BID [facility] Last Admin: 08/10/16 09:00 Dose: 1 applic - Objective Vital Signs: Vital Signs Temperature 97.9 F 08/10/16 14:00 Pulse Rate 78 08/10/16 14:00 Respiratory Rate 20 08/10/16 14:00 Blood Pressure 101/61 08/10/16 14:00 O2 Sat by Pulse Oximetry (%) 100 08/10/16 08:00 Constitutional: Yes: No Distress, Calm Neck: Yes: Supple Cardiovascular: Yes: Regular Rate and Rhythm Respiratory: Yes: Intubated, Mechanically Ventilated, Rhonchi Gastrointestinal: Yes: Soft, Hypoactive Bowel Sounds Edema: Yes Edema: LLE: 1+, RLE: 1+ Labs: CBC, BMP 08/10/16 05:35 08/10/16 05:35 INR, PTT INR 1.34 (0.82-1.09) H 08/08/16 05:15 Fibrinogen 372.0 mg/dL (238-498) 08/09/16 05:45 - ....Imaging Chest X-ray: Report Reviewed (Improved aeration at bases) Cat Scan: Report Reviewed (08/09/2016 Abd/pelvic CT-No abscess) Problem List - Problems (1) CRISS (acute kidney injury) Code(s): N17.9 - ACUTE KIDNEY FAILURE, UNSPECIFIED (2) Bacteremia due to Gram-negative bacteria Code(s): R78.81 - BACTEREMIA (3) Biliary sepsis Code(s): K83.0 - CHOLANGITIS (4) CAD (coronary artery disease) Code(s): I25.10 - ATHSCL HEART DISEASE OF [place] CORONARY ARTERY W/O ANG PCTRS Qualifiers: Coronary Disease-Associated Artery/Lesion type: unspecified vessel or lesion type [place] vs. transplanted heart: [place] heart Associated angina: without angina Qualified Code(s): I25.10 - Atherosclerotic heart disease of [place] coronary artery without angina pectoris (5) CKD (chronic kidney disease) Code(s): N18.9 - CHRONIC KIDNEY DISEASE, UNSPECIFIED (6) Calculus of common duct with obstruction Code(s): K80.51 - CALCULUS OF BILE DUCT W/O CHOLANGITIS OR CHOLECYST W OBST (7) History of percutaneous coronary intervention Code(s): Z98.890 - OTHER SPECIFIED POSTPROCEDURAL STATES (8) S/P ERCP Code(s): Z98.890 - OTHER SPECIFIED POSTPROCEDURAL STATES (9) Thrombocytopenia Code(s): D69.6 - THROMBOCYTOPENIA, UNSPECIFIED (10) Acute hypoxemic respiratory failure Code(s): J96.01 - ACUTE RESPIRATORY FAILURE WITH HYPOXIA (11) Gram negative septic shock Code(s): A41.50 - GRAM-NEGATIVE SEPSIS, UNSPECIFIED R65.21 - SEVERE SEPSIS WITH SEPTIC SHOCK (12) Left bundle branch block Code(s): I44.7 - LEFT BUNDLE-BRANCH BLOCK, UNSPECIFIED (13) Demand ischemia Code(s): I24.8 - OTHER FORMS OF ACUTE ISCHEMIC HEART DISEASE Assessment/Plan 08/08/2016 Echo: Severely decreased LV fxn, mod-severe RV fxn, mod MR, mild TR, pleural effusion significantly worsened from previous study likely referable to severe sepsis 1. Acute hypoxemic respiratory failure on mechanical ventilation 2. Biliary septic shock (E. coli), acute cholangitis post ERCP, balloon sphincteroplasty and stent placement with leukocytosis and lactic acidosis 3. Post TAVR for severe 4. CAD, S/P PCI/stent with demand ischemic injury 5. Severe biventricular dysfunction referable to sepsis 6. H/o Hypertension currently hypotensive requiring pressors 7. Renal CA S/P right nephrectomy 8. Anuric acute on CKD referable to septic shock and ATN 9. Thrombocytopenia due to sepsis PLAN: 1. Wean Levophed gtt to maintain MAP>65 mmHg. 2. Antibiotics coverage changed to Ancef as per ID and C&S 3. Trops have peaked, monitor renal trajectory, may require sustained low efficiency dialysis, wean vent per ABG, wean sedation 4. DVT and GI prophylaxis [employer] Operator: Aubrey Vieyra MD ([facility])
--- NOTE | 2016-08-10 14:41 | PN ---
GI Progress Note Subjective: GI NOte: Remains sedated although sedation was stopped this AM. 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 Bilirubin is dropping and indicates that the stent is draining his bile duct - Objective Vital Signs: Vital Signs Temperature 97.9 F 08/10/16 14:00 Pulse Rate 78 08/10/16 14:00 Respiratory Rate 20 08/10/16 14:15 Blood Pressure 101/61 08/10/16 14:00 O2 Sat by Pulse Oximetry (%) 100 08/10/16 08:00 Constitutional: Other (Sedated) ...Auscultate: Yes: Hypoactive Bowel Sounds ...Palpate: Yes: Soft, Other (nontender) Labs: CBC, BMP 08/10/16 05:35 08/10/16 05:35 INR, PTT INR 1.34 (0.82-1.09) H 08/08/16 05:15 Fibrinogen 372.0 mg/dL (238-498) 08/09/16 05:45 Laboratory Tests 08/06/16 08/07/16 08/09/16 16:51 20:30 05:45 WBC Hgb Total Bilirubin 9.9 H 7.2 H D AST 107 H ALT 58 Alkaline Phosphatase 1048 H D 686 H 08/09/16 08/10/16 08/10/16 08:30 05:35 05:35 WBC 35.9 H* 19.0 H D Hgb 9.0 L Total Bilirubin 5.8 H AST ALT Alkaline Phosphatase Assessment/Plan Slowly resolving cholangitis. Remains ventilator dependent but will hopefully awaken soon. Checked for gastric residual and there is none so will start feedings and actigall.
--- NOTE | 2016-08-10 15:07 | PN ---
Progress Note, Physician History of Present Illness: Pt seen and examined at bedside. He remain in the ICU. He remains oliguric and on pressors. - Current Medication List Current Medications: Active Medications Fentanyl (Sublimaze Injection -) 25 mcg IVPUSH [id number] PRN PRN Reason: PAIN Stop: 08/10/16 16:20 Last Admin: 08/07/16 17:38 Dose: 25 mcg Heparin Sodium (Porcine) (Heparin -) 5,000 unit SQ BID [facility] Last Admin: 08/10/16 11:53 Dose: 5,000 unit Famotidine/Sodium Chloride (Pepcid 20 Mg Premixed Ivpb -) 50 mls @ 100 mls/hr IVPB DAILY [facility] Last Admin: 08/10/16 09:00 Dose: 100 mls/hr Norepinephrine Bitartrate 8, (000 mcg/ Dextrose) 500 mls @ 18.75 mls/hr IV TITR SUBHA; 5 MCG/MIN PRN Reason: Protocol Last Admin: 08/10/16 06:45 Dose: Not Given Dextrose/Sodium Chloride (D5-Ns -) 1,000 mls @ 75 mls/hr IV ASDIR [facility] Last Admin: 08/10/16 11:30 Dose: 75 mls/hr Cefazolin Sodium 0.5 gm/ (Dextrose) 50 mls @ 100 mls/hr IVPB BID [facility] Last Admin: 08/10/16 13:09 Dose: 100 mls/hr Nystatin (Nystop Powder -) 1 applic TP BID [facility] Last Admin: 08/10/16 09:00 Dose: 1 applic Ursodiol (Actigal -) 300 mg PO BID [facility] - Objective Vital Signs: Vital Signs Temperature 97.9 F 08/10/16 14:00 Pulse Rate 78 08/10/16 14:00 Respiratory Rate 20 08/10/16 14:15 Blood Pressure 101/61 08/10/16 14:00 O2 Sat by Pulse Oximetry (%) 100 08/10/16 08:00 Constitutional: Yes: Calm Eyes: Yes: Sclera Icterus HENT: Yes: Atraumatic Neck: Yes: Supple Cardiovascular: Yes: S1, S2 Respiratory: Yes: Mechanically Ventilated Gastrointestinal: Yes: Soft Genitourinary: Yes: [place] Present, Oliguria Musculoskeletal: Yes: Muscle Weakness Edema: Yes Edema: LUE: 1+, RUE: 1+, LLE: 1+, RLE: 1+ Neurological: Yes: Lethargy Labs: CBC, BMP 08/10/16 05:35 08/10/16 05:35 INR, PTT INR 1.34 (0.82-1.09) H 08/08/16 05:15 Fibrinogen 372.0 mg/dL (238-498) 08/09/16 05:45 - ....Imaging Chest X-ray: Report Reviewed Problem List - Problems (1) CAD (coronary artery disease) Code(s): I25.10 - ATHSCL HEART DISEASE OF [place] CORONARY ARTERY W/O ANG PCTRS Qualifiers: Coronary Disease-Associated Artery/Lesion type: unspecified vessel or lesion type [place] vs. transplanted heart: [place] heart Associated angina: without angina Qualified Code(s): I25.10 - Atherosclerotic heart disease of [place] coronary artery without angina pectoris (2) Calculus of common duct with obstruction Code(s): K80.51 - CALCULUS OF BILE DUCT W/O CHOLANGITIS OR CHOLECYST W OBST (3) Choledocholithiasis Code(s): K80.50 - CALCULUS OF BILE DUCT W/O CHOLANGITIS OR CHOLECYST W/O OBST (4) Renal cancer Code(s): C64.9 - MALIGNANT NEOPLASM OF UNSP KIDNEY, EXCEPT RENAL PELVIS Qualifiers: Laterality: right Qualified Code(s): C64.1 - Malignant neoplasm of right kidney, except renal pelvis (5) CRISS (acute kidney injury) Code(s): N17.9 - ACUTE KIDNEY FAILURE, UNSPECIFIED (6) CKD (chronic kidney disease) Code(s): N18.9 - CHRONIC KIDNEY DISEASE, UNSPECIFIED Assessment/Plan Current Medications Generic Name Dose Route Start Last Admin Trade Name Freq PRN Reason Stop Dose Admin Fentanyl 25 mcg 08/07/16 16:19 08/07/16 17:38 Sublimaze Injection - IVPUSH 08/10/16 16:20 25 mcg [id number] PRN Administration PAIN Heparin Sodium (Porcine) 5,000 unit 08/08/16 22:00 08/10/16 11:53 Heparin - SQ 5,000 unit BID [facility] Administration Famotidine/Sodium Chloride 50 mls @ 100 mls/hr 08/07/16 22:30 08/10/16 09:00 Pepcid 20 Mg Premixed Ivpb - IVPB 100 mls/hr DAILY [facility] Administration Norepinephrine Bitartrate 8, 500 mls @ 18.75 mls/hr 08/08/16 06:45 08/10/16 06: 45 000 mcg/ Dextrose IV Not Given TITR SUBHA Protocol 5 MCG/MIN Dextrose/Sodium Chloride 1,000 mls @ 75 mls/hr 08/08/16 11:30 08/10/16 11:30 D5-Ns - IV 75 mls/hr ASDIR [facility] Administration Cefazolin Sodium 0.5 gm/ 50 mls @ 100 mls/hr 08/10/16 10:00 08/10/16 13:09 Dextrose IVPB 100 mls/hr BID [facility] Administration Nystatin 1 applic 08/08/16 22:00 08/10/16 09:00 Nystop Powder - TP 1 applic BID [facility] Administration Ursodiol 300 mg 08/10/16 22:00 Actigal - PO BID [facility] Impression 1. CKD stage 3 2. CRISS 3. choledocholithiasis 4. CAD 5. hx of Renal Cell Cancer s/p nephroectomy 6. aortic stenosis 7. sepsis 8. acute respiratory failure requiring intubation 9. NSTEMI 10. bacteremia Plan - urine output has picked up today, however he remains oliguic - unable to reach family by phone - discussed possibility of HD with family last night however they are not decided - repeat labs in am - cont pressor support - will add bicarb to fluids - feeds as per GI - vent support - discussed with ICU team - monitor in ICU Dr Medina
[2016-08-10] MEDS ORDERED: DEXTROSE 5%-0.45% SALINE 1,000 ML with SODIUM BICARBONATE 8.4% - 75 MEQ IV SCH ×2 (15:30)
[2016-08-10] MEDS: SODIUM BICARBONATE IVPB SCH (15:30)
[2016-08-10] MEDS ORDERED: DEXTROSE 5%-0.45% SALINE 1,000 ML with SODIUM BICARBONATE 8.4% - 75 MEQ IVPB SCH (15:30)
[2016-08-10] MEDS: DEXTROSE IVPB SCH (15:30)
[2016-08-10] MEDS: [UNRECOGNIZED DRUG - OTHER] IVPB SCH (15:30)
--- NOTE | 2016-08-10 15:44 | PN ---
Physical Exam: SUBJECTIVE: Patient seen and examined pt off sedation. no response to verbal or noxious stimuli family meeting to discuss GOC OBJECTIVE: Vital Signs Period Temp Pulse Resp BP Sys/Hinkle Pulse Ox Last 24 Hr 97.5 F-99.2 F 64-78 18-23 98-144/53-70 100-100 EYES: sluggish pupilary response, conjunctiva clear. No ptosis. ENT: oropharynx with endotracheal tube and OG tube, moist mucous membranes. LUNGS: Breath sounds equal, clear to auscultation bilaterally, dminished breath sounds at bases HEART: Regular rate and rhythm, S1, S2 without murmur, rub or gallop. ABDOMEN: Soft, nondistended, multiple diffuse palpable soft mobile nodularities , normoactive bowel sounds, periumbilical erythema with demuted skin laterally along skin fold, scant serous discharge covered with nystatin power EXTREMITIES: 2+ pulses in b/l radial and DP, warm, well-perfused, no edema. scd' s in place SKIN: Warm, jaundiced. Stone in place Laboratory Results - last 24 hr 08/09/16 08/10/16 08/10/16 05:45 05:35 05:35 WBC 19.0 H D RBC 3.09 L Hgb 9.0 L Hct 26.8 L MCV 86.8 MCHC 33.5 RDW 17.2 H Plt Count 38 L MPV 10.5 PTT (Actin FS) 33.6 D Puncture Site ABG pH ABG pCO2 at Pt Temp ABG pO2 at Pt Temp ABG HCO3 ABG O2 Sat (Measured) ABG O2 Content ABG Base Excess Marvin Test O2 Delivery Device Oxygen Flow Rate Vent Mode Vent Rate Mechanical Rate PEEP Pressure Support Vent Sodium Potassium Chloride Carbon Dioxide Anion Gap BUN Creatinine Creat Clearance w eGFR Random Glucose Calcium Phosphorus Magnesium Total Bilirubin AST ALT Alkaline Phosphatase CK-MB (CK-2) Rel Index Cancelled Troponin I Total Protein Albumin 08/10/16 08/10/16 08/10/16 05:35 05:35 07:15 WBC RBC Hgb Hct MCV MCHC RDW Plt Count MPV PTT (Actin FS) Puncture Site Right radial ABG pH 7.32 L ABG pCO2 at Pt Temp 27.4 L ABG pO2 at Pt Temp 158.0 H* D ABG HCO3 13.6 L* ABG O2 Sat (Measured) 99.3 H ABG O2 Content 15.3 ABG Base Excess -11.0 L* Marvin Test Positive O2 Delivery Device Vent Oxygen Flow Rate 40% Vent Mode A/c Vent Rate 14 Mechanical Rate Yes PEEP 5.0 Pressure Support Vent 500 Sodium 134 L Potassium 4.4 Chloride 103 Carbon Dioxide 15 L Anion Gap 16 BUN 67 H Creatinine 5.8 H Creat Clearance w eGFR 9.30 Random Glucose 86 Calcium 7.4 L Phosphorus 3.8 Magnesium 2.1 Total Bilirubin 5.8 H AST 93 H ALT 49 Alkaline Phosphatase 619 H CK-MB (CK-2) Rel Index Troponin I 3.10 H* D Total Protein 3.8 L Albumin 1.4 L Active Medications Generic Name Dose Route Start Last Admin Trade Name Freq PRN Reason Stop Dose Admin Fentanyl 25 mcg 08/07/16 16:19 08/07/16 17:38 Sublimaze Injection - IVPUSH 08/10/16 16:20 25 mcg [id number] PRN Administration PAIN Heparin Sodium (Porcine) 5,000 unit 08/08/16 22:00 08/10/16 11:53 Heparin - SQ 5,000 unit BID SUBHA Administration Famotidine/Sodium Chloride 50 mls @ 100 mls/hr 08/07/16 22:30 08/10/16 09:00 Pepcid 20 Mg Premixed Ivpb - IVPB 100 mls/hr DAILY SUBHA Administration Norepinephrine Bitartrate 8, 500 mls @ 18.75 mls/hr 08/08/16 06:45 08/10/16 06: 45 000 mcg/ Dextrose IV Not Given TITR SUBHA Protocol 5 MCG/MIN Cefazolin Sodium 0.5 gm/ 50 mls @ 100 mls/hr 08/10/16 10:00 08/10/16 13:09 Dextrose IVPB 100 mls/hr BID SUBHA Administration Sodium Bicarbonate 75 meq/ 1,075 mls @ 75 mls/hr 08/10/16 15:30 Dextrose/Sodium Chloride IVPB Q14H SUBHA Nystatin 1 applic 08/08/16 22:00 08/10/16 09:00 Nystop Powder - TP 1 applic BID SUBHA Administration Ursodiol 300 mg 08/10/16 22:00 Actigal - PO BID SUBHA ASSESSMENT/PLAN: 85 yr old man with HTN, aortic stenosis, CAD s/p stents, r-nephroctomy(renal ca) , pancreatic head density found to have choleluithaisis with obstructing CBD, s/ p ERCP with stent placement(unable to undergo sphincterectomy due to anticoagulation) complicated by septic shock requiring ICU admission. GOC discussed with family ((health care proxy) and 's nieces), pt has advanced directives in setting of terminal condition. DNR decided as per his wishes, signed by . they will think about dialysis, uncertain at the moment. aware that prognosis is tenuous. Infectious Disease Septic shock with multi-organ failure likely secondary to cholangitis and e.coli bactermia(likley gallbladder as primary source) - ofirmev 1gm IVpb q6hr for fever Abx tx: Cefazolin (renally dosed) start 08/10 - day 1 meropenem 500mg IVPB BID Day 3, dc'd to initiate cefazolin - topical antifungal cream to periumbical area Fluids: avoid fluid overload - D5-NS @75mls/hr + bicarbonate Pressure suport: attempt to wean off norepi Goal MAP>65, CVP 8-12, current CVP 12. Labs: - bld cx pending Consult: Dr. Boggs Cardiovascular Hypotensive, troponins trending up, with echo showing hypokensis and decreased LV function - trend troponins to establish peak, no indication for ASA or heparin drip as this is unlikely due to be ACS - tropinins now trending down, continue to trend - maintain Goal MAP>65, CVP 8-12 consult: dr. ayala Renal oliguric CRISS/ATN due to sepsis induced hypoperfusion, on CKD stage 3 - add bicarb as abg with worsening acidosis - monitor I&O, stone in place, urine output 190cc/24hr, which is improved from yesterday, to consider HD with family as pt had only one kidney - renal dosing of medications - metabolic acidosis with anion gap consult: Dr. Medina Pulmonary acute hypoxic respiratory failure - on ventilatory support taper FiO2 to keep Spo2 >90% Gastrointestinal Cholangitis s/p ERCP with biliary stent placement initiate tube feedings with Jevity actigal to soften gall stones trend LFT's, trending down Abdominal CT scan without abscess or free abdominal air, no SBO. stranding of mesentery in lower abdomen suggestive of edema, diverticulosis coli with mild stranding in jxn of the distal descending and poximal sigmoid colon, small amout of free fluid in pelvis consult: Dr. Thompson Hematological normocytic anemia - chronic, trend h/h, monitor for bleeding leucocytosis secondary to sepsis thrombocytopenia - likely due to sepsis, r./o DIC; trend fibrinogen and fibrin degradation products maintain platelet >20,000 Dermatological periumbical drainage - topical antifungal Dr Weems consulted for surgical eval; patient is high risk for operative intervention, recommend IR intervention for percutaneous drainage Dr. Carney consulted Neurological sedation dc'ed however pt is not following commands with no response to verbal or noxious stimuli DVT: heparin 5000 units SQ BID Diet: initiate tube feeding with Jevity volume based Visit type - Emergency Visit Emergency Visit: No - New Patient This patient is new to me today: No - Critical Care Critical Care patient: Yes Total Critical Care Time (in minutes): 45 Critical Care Statement: The care of this patient involved high complexity decision making to prevent further life threatening deterioration of the patient 's condition and/or to evalute & treat vital organ system(s) failure or risk of failure.
[2016-08-10] MEDS ORDERED: SODIUM BICARBONATE 8.4% - 100 ML ONE (16:18)
--- NOTE | 2016-08-10 16:37 | PN ---
Progress Note (short form) - Note Progress Note: Intubated In ICU Vital Signs Period Temp Pulse Resp BP Sys/Hinkle Pulse Ox Last 24 Hr 97.5 F-99.2 F 64-78 18-23 98-144/53-70 100-100 Abd soft CBC,CMP WBC 19.0 K/mm3 (4.0-10.0) H D 08/10/16 05:35 RBC 3.09 M/mm3 (4.00-5.60) L 08/10/16 05:35 Hgb 9.0 GM/dL (11.7-16.9) L 08/10/16 05:35 Hct 26.8 % (35.4-49) L 08/10/16 05:35 MCV 86.8 fl (80-96) 08/10/16 05:35 MCHC 33.5 g/dl (32.0-35.9) 08/10/16 05:35 RDW 17.2 % (11.9-15.9) H 08/10/16 05:35 Plt Count 38 K/MM3 (134-434) L 08/10/16 05:35 MPV 10.5 fl (7.5-11.1) 08/10/16 05:35 Neutrophils % 96.0 % (42.8-82.8) H 08/09/16 08:30 Lymphocytes % 3.0 % (8-40) L D 08/09/16 08:30 Monocytes % 1.0 % (3.8-10.2) L 08/09/16 08:30 Eosinophils % 0.5 % (0-4.5) 08/07/16 09:00 Basophils % 0.2 % (0-2.0) 08/07/16 09:00 Band Neutrophils 11.0 % (0-10) H D 08/08/16 05:15 Metamyelocytes 5 % (0-2) H D 08/07/16 20:30 Myelocytes 9 % (0-2) H D 08/07/16 20:30 Differential Comment Manual diff done 08/09/16 08:30 Dohle Bodies 1+ 08/08/16 05:15 Platelet Estimate Decreased (NORMAL) 08/09/16 08:30 Platelet Comment No clumping noted 08/08/16 05:15 Polychromasia Few 08/08/16 05:15 Hypochromic-Microcytic Few 08/08/16 05:15 Sodium 134 mmol/L (136-145) L 08/10/16 05:35 Potassium 4.4 mmol/L (3.5-5.1) 08/10/16 05:35 Chloride 103 mmol/L (98-107) 08/10/16 05:35 Carbon Dioxide 15 mmol/L (21-32) L 08/10/16 05:35 Anion Gap 16 (8-16) 08/10/16 05:35 BUN 67 mg/dL (7-18) H 08/10/16 05:35 Creatinine 5.8 mg/dL (0.7-1.3) H 08/10/16 05:35 Creat Clearance w eGFR 9.30 (>60) 08/10/16 05:35 Random Glucose 86 mg/dL (74-106) 08/10/16 05:35 Lactic Acid 1.684 mmol/L (0.4-2.0) 08/08/16 13:20 Calcium 7.4 mg/dL (8.5-10.1) L 08/10/16 05:35 Phosphorus 3.8 mg/dL (2.5-4.9) 08/10/16 05:35 Magnesium 2.1 mg/dL (1.8-2.4) 08/10/16 05:35 Total Bilirubin 5.8 mg/dL (0.2-1.0) H 08/10/16 05:35 Direct Bilirubin 6.1 mg/dL (0.0-0.2) H D 08/09/16 05:45 AST 93 U/L (15-37) H 08/10/16 05:35 ALT 49 U/L (12-78) 08/10/16 05:35 Alkaline Phosphatase 619 U/L (45-117) H 08/10/16 05:35 Creatine Kinase 158 IU/L (39-308) 08/09/16 05:45 Creatine Kinase Index 11.8 % (0.0-5.0) H* 08/08/16 13:20 CK-MB (CK-2) 18.446 ng/ml (0.5-3.6) H 08/08/16 13:20 CK-MB (CK-2) Rel Index Cancelled 08/08/16 13:20 Troponin I 3.10 ng/ml (0.00-0.05) H* D 08/10/16 05:35 C-Reactive Protein 21.5 MG/DL (0.00-0.3) H 08/08/16 05:15 Total Protein 3.8 g/dl (6.4-8.2) L 08/10/16 05:35 Albumin 1.4 g/dl (3.4-5.0) L 08/10/16 05:35 Total Amylase 49 U/L (25-115) D 08/08/16 05:15 Lipase 116 U/L (73-393) 08/08/16 05:15 WBC and bilirubin decreasing Continue antibiotics and ICU care IV fluids Problem List - Problems (1) Umbilical discharge Code(s): R19.8 - OT SYMPTOMS AND SIGNS INVOLVING THE DGSTV SYS AND ABDOMEN
[2016-08-10 18:01] LABS: BASOPHIL 0.2 % (0-2.0); EOSINOPHIL 1.8 % (0-4.5); MCHC 33.3 g/dl (32.0-35.9); MEAN CELL VOLUME 87.1 fl (80-96); MEAN PLT VOLUME 10.2 fl (7.5-11.1); NEUTROPHILS 91.5 % (42.8-82.8); PLATELET COUNT 55 K/MM3 (134-434); WHITE BLOOD COUNT 17.7 K/mm3 (4.0-10.0)
--- NOTE | 2016-08-10 18:12 | PN ---
Physical Exam: SUBJECTIVE: Patient seen and examined. Remains intubated. OBJECTIVE: Platelets 38, ordered 1 unit of platelets Platelets now 55 Vital Signs Period Temp Pulse Resp BP Sys/Hinkle Pulse Ox Last 24 Hr 97.5 F-98.9 F 64-78 18-23 98-144/53-70 100-100 GENERAL: Intubated/lethargic/wrist restraints to protect airway HEAD: Normal with no signs of trauma. NECK: Normal range of motion, supple without lymphadenopathy, JVD, or masses. LUNGS: Breath sounds equal, clear to auscultation bilaterally. No wheezes, and no crackles HEART: Regular rate and rhythm, normal S1 and S2, rub or gallop. ABDOMEN: +erythema, sero/sang malodorous drainage to periumbilical region. UPPER EXTREMITIES: Non pitting edema of bilateral hands NEUROLOGICAL: lethargic SKIN: generalized jaundice Laboratory Results - last 24 hr 08/09/16 08/10/16 08/10/16 05:45 05:35 05:35 WBC 19.0 H D RBC 3.09 L Hgb 9.0 L Hct 26.8 L MCV 86.8 MCHC 33.5 RDW 17.2 H Plt Count 38 L MPV 10.5 Neutrophils % Lymphocytes % Monocytes % Eosinophils % Basophils % PTT (Actin FS) 33.6 D Puncture Site ABG pH ABG pCO2 at Pt Temp ABG pO2 at Pt Temp ABG HCO3 ABG O2 Sat (Measured) ABG O2 Content ABG Base Excess Marvin Test O2 Delivery Device Oxygen Flow Rate Vent Mode Vent Rate Mechanical Rate PEEP Pressure Support Vent Sodium Potassium Chloride Carbon Dioxide Anion Gap BUN Creatinine Creat Clearance w eGFR Random Glucose Calcium Phosphorus Magnesium Total Bilirubin AST ALT Alkaline Phosphatase CK-MB (CK-2) Rel Index Cancelled Troponin I Total Protein Albumin 08/10/16 08/10/16 08/10/16 05:35 05:35 07:15 WBC RBC Hgb Hct MCV MCHC RDW Plt Count MPV Neutrophils % Lymphocytes % Monocytes % Eosinophils % Basophils % PTT (Actin FS) Puncture Site Right radial ABG pH 7.32 L ABG pCO2 at Pt Temp 27.4 L ABG pO2 at Pt Temp 158.0 H* D ABG HCO3 13.6 L* ABG O2 Sat (Measured) 99.3 H ABG O2 Content 15.3 ABG Base Excess -11.0 L* Marvin Test Positive O2 Delivery Device Vent Oxygen Flow Rate 40% Vent Mode A/c Vent Rate 14 Mechanical Rate Yes PEEP 5.0 Pressure Support Vent 500 Sodium 134 L Potassium 4.4 Chloride 103 Carbon Dioxide 15 L Anion Gap 16 BUN 67 H Creatinine 5.8 H Creat Clearance w eGFR 9.30 Random Glucose 86 Calcium 7.4 L Phosphorus 3.8 Magnesium 2.1 Total Bilirubin 5.8 H AST 93 H ALT 49 Alkaline Phosphatase 619 H CK-MB (CK-2) Rel Index Troponin I 3.10 H* D Total Protein 3.8 L Albumin 1.4 L 08/10/16 17:30 WBC 17.7 H RBC 3.32 L Hgb 9.6 L Hct 28.9 L MCV 87.1 MCHC 33.3 RDW 17.0 H Plt Count 55 L D MPV 10.2 Neutrophils % 91.5 H Lymphocytes % 4.4 L D Monocytes % 2.1 L D Eosinophils % 1.8 D Basophils % 0.2 PTT (Actin FS) Puncture Site ABG pH ABG pCO2 at Pt Temp ABG pO2 at Pt Temp ABG HCO3 ABG O2 Sat (Measured) ABG O2 Content ABG Base Excess Marvin Test O2 Delivery Device Oxygen Flow Rate Vent Mode Vent Rate Mechanical Rate PEEP Pressure Support Vent Sodium Potassium Chloride Carbon Dioxide Anion Gap BUN Creatinine Creat Clearance w eGFR Random Glucose Calcium Phosphorus Magnesium Total Bilirubin AST ALT Alkaline Phosphatase CK-MB (CK-2) Rel Index Troponin I Total Protein Albumin Active Medications Generic Name Dose Route Start Last Admin Trade Name Freq PRN Reason Stop Dose Admin Heparin Sodium (Porcine) 5,000 unit 08/08/16 22:00 08/10/16 11:53 Heparin - SQ 5,000 unit BID SUBHA Administration Famotidine/Sodium Chloride 50 mls @ 100 mls/hr 08/07/16 22:30 08/10/16 09:00 Pepcid 20 Mg Premixed Ivpb - IVPB 100 mls/hr DAILY SUBHA Administration Norepinephrine Bitartrate 8, 500 mls @ 18.75 mls/hr 08/08/16 06:45 08/10/16 06: 45 000 mcg/ Dextrose IV Not Given TITR SUBHA Protocol 5 MCG/MIN Cefazolin Sodium 0.5 gm/ 50 mls @ 100 mls/hr 08/10/16 10:00 08/10/16 13:09 Dextrose IVPB 100 mls/hr BID SUBHA Administration Sodium Bicarbonate 75 meq/ 1,075 mls @ 75 mls/hr 08/10/16 15:30 08/10/16 15:30 Dextrose/Sodium Chloride IVPB 75 mls/hr Q14H SUBHA Administration Nystatin 1 applic 08/08/16 22:00 08/10/16 09:00 Nystop Powder - TP 1 applic BID SUBHA Administration Ursodiol 300 mg 08/10/16 22:00 Actigal - PO BID SUBHA ASSESSMENT/PLAN: Patient is a 85 year old male with a significant past medical history of hypertension, CAD s/p stent placement, aortic stenosis, porcine valve replacement (takes both ASA 81mg and Plavix 75mg), 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 He was admitted on 08/06/2016 for abdominal pain, acute choledocholithiasis, acute transaminitis, jaundice and leukocytosis and shaking chills. ID: Septic Shock likely secondary to periumbilicus cellulitis vs. cholangitis Periumbilical cellulitis - chronic Assessment: Wound culture +staphylococcus coag, +blood cultures with ecoli Will repeat blood cultures Now on Cefazolin Surgical consult for likely drainage of abscess once pt more stable blood cultures pending, ID following Now intubated/sedated/on pressors GI: Acute Choledocholithiasis/abdominal pain/generalized jaundice/acute transaminitis Assessment/Plan: Cholangitis s/p ERCP with biliary stent placement on 08/07 Trend LFT's On Enterpenem per ID since 08/07 Blood cultures ordered Intubated after procedure, on pressorrs : Chronic Kidney Disease - acute renal failure Renal cancer s/p right nephrectomy Assessment/Plan: Creatinine 5.2, baseline ~ 1.7 Renal consulted and following, pt may need dialysis if continues to trend up as per renal On IVF, Trend bun/creat. 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 Fluids: d5 NS @75cc/hr Electrolytes: monitor bmp Nutrition: intubated/npo Prophylaxis: DVT: SCDs, Heparin BID GI: Protonix Code Status: Requires inpatient hospitalization. DNR
[2016-08-10] MEDS: URSODIOL 300 MG CAPSULE PO SCH (21:15)
[2016-08-10] MEDS: CHLORHEXIDINE GLUCONATE 0.12% 15ML CUP MM SCH (21:16)
[2016-08-10] MEDS: CHLORHEXIDINE GLUCONATE 4% CLEANSER FOR DECOLONIZATION TP SCH (21:16)
[2016-08-11 00:46] LABS: TROPONIN I 2.2 ng/ml (0.00-0.05)
[2016-08-11 06:14] LABS: BASOPHIL 0.3 % (0-2.0); EOSINOPHIL 4.3 % (0-4.5); MCH 29.7 pg (25.7-33.7); MCHC 34.2 g/dl (32.0-35.9); MEAN CELL VOLUME 86.9 fl (80-96); MEAN PLT VOLUME 10.3 fl (7.5-11.1); NEUTROPHILS 87.3 % (42.8-82.8); PLATELET COUNT 43 K/MM3 (134-434); RDW 16.9 % (11.9-15.9); WHITE BLOOD COUNT 11.5 K/mm3 (4.0-10.0)
[2016-08-11 06:36] LABS: ALBUMIN 1.3 g/dl (3.4-5.0); CALCIUM 7.2 mg/dL (8.5-10.1); MAGNESIUM 2.2 mg/dL (1.8-2.4)
[2016-08-11 06:40] LABS: CREATININE 6.3 mg/dL (0.7-1.3); PHOSPHOROUS 4.6 mg/dL (2.5-4.9); TOT PROT 3.8 g/dl (6.4-8.2)
[2016-08-11] MEDS: DEXTROSE IVPB SCH (07:22)
[2016-08-11] MEDS: [UNRECOGNIZED DRUG - OTHER] IVPB SCH (07:22)
[2016-08-11] MEDS: SODIUM BICARBONATE IVPB SCH (07:22)
[2016-08-11] MEDS: NOREPINEPHRINE BITARTRATE 8,000 MCG in DEXTROSE 5%-WATER - 492 ML IV SCH (07:23)
[2016-08-11 07:50] LABS: ALLENS TEST POSITIVE; ART PUNCT SITE RIGHT RADIAL; ARTERIAL BLD GAS O2 SATURATION 98.7 % (90-98.9); ARTERIAL BLOOD GAS BASE EXCESS -9.6 meq/l (-2-2); ARTERIAL BLOOD GAS HCO3 14.8 meq/L (22-26); ARTERIAL BLOOD GAS pH 7.33 (7.35-7.45); LPM/O2% 40%; MECH. VENT. YES; PT. ON O2? YES; TYPE OF O2 VENT; VENT RATE 14; VT/PRESS 500
--- NOTE | 2016-08-11 08:59 | PN ---
Progress Note (short form) - Note Progress Note: more awake opens eyes to voice levophed being tapered Vital Signs Period Temp Pulse Resp BP Sys/Hinkle Pulse Ox Last 24 Hr 96.9 F-99 F 64-78 14-24 100-144/53-70 100-100 cor-rrr lungs decreased bs at bases abd soft,nt ext no edema stone CBC, BMP 08/11/16 05:15 08/11/16 05:15 Microbiology 08/06/16 18:30 Abdomen Gram Stain - Final 08/06/16 18:30 Abdomen Wound Culture - Final Staphylococcus Coagulase Neg Diphtheroid/Corynebacterium Streptococcus Viridans 08/07/16 10:42 Blood - Peripheral Venous Blood Culture - Final Escherichia Coli 08/07/16 10:40 Blood - Peripheral Venous Blood Culture - Final Escherichia Coli imp/reccd ecoli bacteremia biliary sepsis/resp failure/dilcia (one kidney) s/p cbd stent hx TAVR +troponins continue cefazolin clinically improving
[2016-08-11] MEDS: CHLORHEXIDINE GLUCONATE 0.12% 15ML CUP MM SCH ×2 (09:13→22:00)
[2016-08-11] MEDS: URSODIOL 300 MG CAPSULE PO SCH ×2 (09:13→22:00)
[2016-08-11] MEDS: NYSTATIN POWDER 100,000 UNITS/GM - 15 GM TOPICAL POWDER TP SCH ×2 (09:13→23:49)
[2016-08-11] MEDS: FAMOTIDINE 20 MG/50 ML IVPB 50 ML IVPB SCH (09:13)
--- NOTE | 2016-08-11 09:37 | PN ---
Physical Exam: SUBJECTIVE: Patient seen and examined. Remains intubated, lethargic but responds minimally to verbal and tactile stimuli. OBJECTIVE: Briefly opened his eyes Responding to verbal and tactile stimuli Remains intubated/titrating off pressors WBC 35>11.5 Troponins trending down Creatinine rising Platelets 43 - s/p 1 unit of platelets yesterday Patient is a DNR only Vital Signs Period Temp Pulse Resp BP Sys/Hinkle Pulse Ox Last 24 Hr 96.9 F-99 F 64-78 14-24 100-144/53-70 100-100 GENERAL: Intubated/lethargic/wrist restraints to protect airway HEAD: Normal with no signs of trauma. NECK: Normal range of motion, supple without lymphadenopathy, JVD, or masses. LUNGS: Breath sounds equal, scattered rhonchi on posterior lungs HEART: Regular rate and rhythm, normal S1 and S2, rub or gallop. ABDOMEN: +erythema, sero/sang malodorous drainage to periumbilical region. UPPER EXTREMITIES: Non pitting edema of bilateral hands NEUROLOGICAL: lethargic SKIN: generalized jaundice, periumbilicus drainage/abscess/no odor Laboratory Results - last 24 hr 08/10/16 08/10/16 08/11/16 17:30 17:30 00:00 WBC 17.7 H RBC 3.32 L Hgb 9.6 L Hct 28.9 L MCV 87.1 MCHC 33.3 RDW 17.0 H Plt Count 55 L D MPV 10.2 Neutrophils % 91.5 H Lymphocytes % 4.4 L D Monocytes % 2.1 L D Eosinophils % 1.8 D Basophils % 0.2 PTT (Actin FS) Puncture Site ABG pH ABG pCO2 at Pt Temp ABG pO2 at Pt Temp ABG HCO3 ABG O2 Sat (Measured) ABG O2 Content ABG Base Excess Marvin Test O2 Delivery Device Oxygen Flow Rate Vent Mode Vent Rate Mechanical Rate PEEP Pressure Support Vent Sodium Potassium Chloride Carbon Dioxide Anion Gap BUN Creatinine Creat Clearance w eGFR Random Glucose Calcium Phosphorus Magnesium Total Bilirubin AST ALT Alkaline Phosphatase Troponin I 2.35 H* 2.20 H* Total Protein Albumin 08/11/16 08/11/16 08/11/16 05:15 05:15 05:15 WBC 11.5 H D RBC 3.07 L Hgb 9.1 L Hct 26.7 L MCV 86.9 MCHC 34.2 RDW 16.9 H Plt Count 43 L D MPV 10.3 Neutrophils % 87.3 H Lymphocytes % 5.2 L Monocytes % 2.9 L Eosinophils % 4.3 D Basophils % 0.3 PTT (Actin FS) 33.9 Puncture Site ABG pH ABG pCO2 at Pt Temp ABG pO2 at Pt Temp ABG HCO3 ABG O2 Sat (Measured) ABG O2 Content ABG Base Excess Marvin Test O2 Delivery Device Oxygen Flow Rate Vent Mode Vent Rate Mechanical Rate PEEP Pressure Support Vent Sodium 134 L Potassium 4.5 Chloride 102 Carbon Dioxide 17 L Anion Gap 15 BUN 74 H Creatinine 6.3 H Creat Clearance w eGFR 8.45 Random Glucose 100 Calcium 7.2 L Phosphorus 4.6 D Magnesium 2.2 Total Bilirubin 4.0 H D AST 68 H D ALT 37 D Alkaline Phosphatase 602 H Troponin I Total Protein 3.8 L Albumin 1.3 L 08/11/16 08/11/16 05:15 07:10 WBC RBC Hgb Hct MCV MCHC RDW Plt Count MPV Neutrophils % Lymphocytes % Monocytes % Eosinophils % Basophils % PTT (Actin FS) Puncture Site Right radial ABG pH 7.33 L ABG pCO2 at Pt Temp 28.6 L ABG pO2 at Pt Temp 120.0 H D ABG HCO3 14.8 L* ABG O2 Sat (Measured) 98.7 ABG O2 Content 13.7 L ABG Base Excess -9.6 L Marvin Test Positive O2 Delivery Device Vent Oxygen Flow Rate 40% Vent Mode A/c Vent Rate 14 Mechanical Rate Yes PEEP 5.0 Pressure Support Vent 500 Sodium Potassium Chloride Carbon Dioxide Anion Gap BUN Creatinine Creat Clearance w eGFR Random Glucose Calcium Phosphorus Magnesium Total Bilirubin AST ALT Alkaline Phosphatase Troponin I 1.73 H* Total Protein Albumin Active Medications Generic Name Dose Route Start Last Admin Trade Name Freq PRN Reason Stop Dose Admin Chlorhexidine Gluconate 15 ml 08/10/16 22:00 08/11/16 09:13 Peridex - MM 15 ml BID SUBHA Administration Chlorhexidine Gluconate 1 applic 08/10/16 22:00 08/10/16 21:16 Hibiclens For Decolonization - TP 1 applic HS SUBHA Administration Heparin Sodium (Porcine) 5,000 unit 08/08/16 22:00 08/10/16 21:15 Heparin - SQ 5,000 unit BID SUBHA Administration Famotidine/Sodium Chloride 50 mls @ 100 mls/hr 08/07/16 22:30 08/11/16 09:13 Pepcid 20 Mg Premixed Ivpb - IVPB 100 mls/hr DAILY SUBHA Administration Norepinephrine Bitartrate 8, 500 mls @ 18.75 mls/hr 08/08/16 06:45 08/11/16 07: 23 000 mcg/ Dextrose IV 7.5 mls/hr TITR SUBHA Administration Protocol 5 MCG/MIN Cefazolin Sodium 0.5 gm/ 50 mls @ 100 mls/hr 08/10/16 10:00 08/10/16 21:15 Dextrose IVPB 100 mls/hr BID SUBHA Administration Sodium Bicarbonate 75 meq/ 1,075 mls @ 75 mls/hr 08/10/16 15:30 08/11/16 07:22 Dextrose/Sodium Chloride IVPB 75 mls/hr Q14H SUBHA Administration Nystatin 1 applic 08/08/16 22:00 08/11/16 09:13 Nystop Powder - TP 1 applic BID SUBHA Administration Ursodiol 300 mg 08/10/16 22:00 08/11/16 09:13 Actigal - PO 300 mg BID SUBHA Administration ASSESSMENT/PLAN: Patient is a 85 year old male with a significant past medical history of hypertension, CAD s/p stent placement, aortic stenosis, porcine valve replacement (takes both ASA 81mg and Plavix 75mg), 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 He was admitted on 08/06/2016 for abdominal pain, acute choledocholithiasis, acute transaminitis, jaundice and leukocytosis with shaking chills. ID: Septic Shock likely secondary to periumbilicus cellulitis vs. cholangitis - improving Periumbilical cellulitis - chronic Assessment: Wound culture +staphylococcus coag, +blood cultures with ecoli Repeat blood cultures pending Now on Cefazolin as per ID Surgical consult for likely drainage of abscess once pt more stable Still intubated, titration off pressors as tolerated GI: Acute Choledocholithiasis/abdominal pain/generalized jaundice/acute transaminitis Assessment/Plan: Cholangitis s/p ERCP with biliary stent placement on 08/07 Trend LFT's On Enterpenem per ID since 08/07 Blood cultures ordered Intubated after procedure, weaning off pressorrs On Ursodiol : Chronic Kidney Disease - acute renal failure Renal cancer s/p right nephrectomy Assessment/Plan: Creatinine 6.3, baseline ~ 1.7 Renal consulted and following, pt may need dialysis if continues to trend up as per renal On IVF, Trend bun/creat. Cardiology: Hypertension - chronic Assessment/Plan: hypotension improving, but still on pressors Elevated troponins - acute Assessment/Plan: Troponins continue to trend up, peaked at 7.4 Likely secondary demand ischemia and sepsis Continue to trend troponins [employer] following CAD s/p stent placement On ASA 81mg and Plavix 75mg - on hold Hematology: Thrombocytopenia Assessment/Plan: s/p 1 unit of platelets yesterday platelets @ 43, monitor for now HIT panel ordered F.E.N. Fluids: sodium bicarb drip Electrolytes: monitor bmp Nutrition: on tube feeds Prophylaxis: DVT: SCDs, Heparin BID GI: Protonix Code Status: Requires inpatient hospitalization. DNR Visit type - Emergency Visit Emergency Visit: Yes ED Registration Date: 08/06/16 Care time: The patient presented to the Emergency Department on the above date and was hospitalized for further evaluation of their emergent condition. - New Patient This patient is new to me today: No - Critical Care Critical Care patient: Yes Total Critical Care Time (in minutes): 45 Critical Care Statement: The care of this patient involved high complexity decision making to prevent further life threatening deterioration of the patient 's condition and/or to evalute & treat vital organ system(s) failure or risk of failure.
[2016-08-11] MEDS: CEFAZOLIN 0.5 GM in DEXTROSE 5%-WATER - 50 ML IVPB SCH ×2 (09:44→22:00)
[2016-08-11] MEDS: HEPARIN NA (PORCINE) 5,000 UNITS/ML 1ML VIAL SQ SCH ×2 (09:47→22:00)
--- NOTE | 2016-08-11 10:33 | PN ---
GI Progress Note Subjective: GI NOte: Opens eyes. Weaning pressors. Bilirubin decreasing. - Objective Vital Signs: Vital Signs Temperature 97.2 F L 08/11/16 10:00 Pulse Rate 71 08/11/16 10:00 Respiratory Rate 19 08/11/16 10:00 Blood Pressure 111/62 08/11/16 10:00 O2 Sat by Pulse Oximetry (%) 100 08/11/16 08:00 Constitutional: Other (Still deeply lethargic but opens eyes to verbal command) ...Auscultate: Yes: Hypoactive Bowel Sounds ...Palpate: Yes: Soft Labs: CBC, BMP 08/11/16 05:15 08/11/16 05:15 INR, PTT INR 1.34 (0.82-1.09) H 08/08/16 05:15 Fibrinogen 372.0 mg/dL (238-498) 08/09/16 05:45 Assessment/Plan Resolving e. coli sepsis due to ascending cholangitis. Tolerating feedings which have been advanced. Will ultimately need ERCP with sphincterotomy and stone extractions .
--- NOTE | 2016-08-11 12:03 | PN ---
Progress Note (short form) - Note Progress Note: PULM/CCM SUBJECTIVE: Patient seen and examined in the ICU. -off levophed -more awake -bilis,transaminitis, and alk phos all down trending slowly, trops downtrending -remains oliguric and volume overloaded -nephrology following disucssing FURNACE LOADER CXR: worsening airspace disease, effusion. overloaded. ETT and TLC ok position OBJECTIVE: Vital Signs Temp 97.2 F L 08/11/16 10:00 Pulse 75 08/11/16 11:00 Resp 19 08/11/16 10:30 BP 127/59 08/11/16 11:00 Pulse Ox 91 L 08/11/16 10:30 Intake & Output 08/10/16 08/11/16 08/11/16 23:59 11:59 23:59 Intake Total 2241.0 1141 Output Total 110 140 Balance 2131.0 1001 Weight 99.881 kg Intake: IV 1651.0 621 Levophed - 8,000 Mcg In 451 96 D5w - 492 ml @ 5 MCG/MIN 18.75 mls/hr IV TITR SUBHA Rx#:[id number] D5-Ns - 1,000 ml @ 75 mls 637.5 /hr IV ASDIR SUBHA Rx#: [id number] D5-1/2Ns - 1,000 ml @ 75 562.5 525 mls/hr IVPB Q14H SUBHA with Sodium Bicarbonate 8.4% - 75 Meq Rx#:[id number] IVPB 200 100 Oral 0 Tube Feeding 180 210 Tube Irrigant 210 210 Output: Urine 110 140 Marshall 110 140 Other: Voiding Method Indwelling Catheter Indwelling Catheter Bowel Movement No Weight Measurement [facility] Gen: intubated, poorly responsive but improved since yesterda Heart: RRR Lung: decreased breath sounds bilaterally, crackles. Abd: soft, nontender Ext: dependent edema Neuro: awakens to painful stimuli CBCD WBC 11.5 K/mm3 (4.0-10.0) H D 08/11/16 05:15 RBC 3.07 M/mm3 (4.00-5.60) L 08/11/16 05:15 Hgb 9.1 GM/dL (11.7-16.9) L 08/11/16 05:15 Hct 26.7 % (35.4-49) L 08/11/16 05:15 MCV 86.9 fl (80-96) 08/11/16 05:15 MCHC 34.2 g/dl (32.0-35.9) 08/11/16 05:15 RDW 16.9 % (11.9-15.9) H 08/11/16 05:15 Plt Count 43 K/MM3 (134-434) L D 08/11/16 05:15 MPV 10.3 fl (7.5-11.1) 08/11/16 05:15 CMP Sodium 134 mmol/L (136-145) L 08/11/16 05:15 Potassium 4.5 mmol/L (3.5-5.1) 08/11/16 05:15 Chloride 102 mmol/L (98-107) 08/11/16 05:15 Carbon Dioxide 17 mmol/L (21-32) L 08/11/16 05:15 Anion Gap 15 (8-16) 08/11/16 05:15 BUN 74 mg/dL (7-18) H 08/11/16 05:15 Creatinine 6.3 mg/dL (0.7-1.3) H 08/11/16 05:15 Creat Clearance w eGFR 8.45 (>60) 08/11/16 05:15 Calcium 7.2 mg/dL (8.5-10.1) L 08/11/16 05:15 Total Bilirubin 4.0 mg/dL (0.2-1.0) H D 08/11/16 05:15 AST 68 U/L (15-37) H D 08/11/16 05:15 ALT 37 U/L (12-78) D 08/11/16 05:15 Alkaline Phosphatase 602 U/L (45-117) H 08/11/16 05:15 Total Protein 3.8 g/dl (6.4-8.2) L 08/11/16 05:15 Albumin 1.3 g/dl (3.4-5.0) L 08/11/16 05:15 ASSESSMENT AND PLAN: Acute Cholangitis Gram Negative Bacteremia s/p ERCP/sphincteroplasty/stent placement Acute Hypoxic Respiratory Failure Septic Shock Acute on Chronic Renal Failure Lactic Acidosis CAD +Troponins likely Demand Ischemia s/p TAVR for severe Aortic Stenosis Thrombocytopenia - ABX per ID - Repeat ERCP with sphincterotomy when plavix effect diminished - decrease IVF - taper FiO2 to keep SpO2 >90% - monitor platelets/coags/fibrinogen levels - monitor urine output, creatinine. May need FURNACE LOADER, but as now off pressors would try dose of lasix. - Monitor off sedation to assess mental status - spontaneous breathing trials when mental status improved - DVT/GI prophylaxis - continue ICU monitoring Shaw Lucas ACNP [id number]
[2016-08-11] MEDS: SODIUM BICARBONATE 650 MG TABLET NGT SCH ×2 (12:30→22:00)
[2016-08-11] MEDS ORDERED: FUROSEMIDE 100 MG/10 ML INJECTABLE VIAL IVPB ONE (12:30)
--- NOTE | 2016-08-11 17:25 | PN ---
Progress Note, Physician History of Present Illness: Pt seen and examined at bedside. He remains in the ICU intubated. - Current Medication List Current Medications: Active Medications Chlorhexidine Gluconate (Peridex -) 15 ml MM BID [facility] Last Admin: 08/11/16 09:13 Dose: 15 ml Chlorhexidine Gluconate (Hibiclens For Decolonization -) 1 applic TP HS [facility] Last Admin: 08/10/16 21:16 Dose: 1 applic Heparin Sodium (Porcine) (Heparin -) 5,000 unit SQ BID [facility] Last Admin: 08/11/16 09:47 Dose: 5,000 unit Norepinephrine Bitartrate 8, (000 mcg/ Dextrose) 500 mls @ 18.75 mls/hr IV TITR SUBHA; 5 MCG/MIN PRN Reason: Protocol Last Titration: 08/11/16 11:00 Dose: 0 mcg/min Cefazolin Sodium 0.5 gm/ (Dextrose) 50 mls @ 100 mls/hr IVPB BID [facility] Last Admin: 08/11/16 09:44 Dose: 100 mls/hr Nystatin (Nystop Powder -) 1 applic TP BID [facility] Last Admin: 08/11/16 09:13 Dose: 1 applic Pantoprazole Sodium (Protonix Packets For Oral Suspension -) 40 mg NGT DAILY [facility] Sodium Bicarbonate (Sodium Bicarbonate -) 1,300 mg NGT BID [facility] Last Admin: 08/11/16 12:30 Dose: 1,300 mg Ursodiol (Actigal -) 300 mg PO BID [facility] Last Admin: 08/11/16 09:13 Dose: 300 mg - Objective Vital Signs: Vital Signs Temperature 97.9 F 08/11/16 16:00 Pulse Rate 71 08/11/16 16:00 Respiratory Rate 18 08/11/16 17:09 Blood Pressure 97/50 08/11/16 16:00 O2 Sat by Pulse Oximetry (%) 91 L 08/11/16 10:30 Constitutional: Yes: Calm Eyes: Yes: Conjunctiva Clear Cardiovascular: Yes: S1, S2 Respiratory: Yes: Mechanically Ventilated Genitourinary: Yes: Marshall Present, Oliguria Musculoskeletal: Yes: Muscle Weakness Edema: Yes Edema: LUE: 1+, RUE: 1+, LLE: 2+, RLE: 2+ Neurological: Yes: Lethargy Labs: CBC, BMP 08/11/16 05:15 08/11/16 05:15 INR, PTT INR 1.34 (0.82-1.09) H 08/08/16 05:15 Fibrinogen 372.0 mg/dL (238-498) 08/09/16 05:45 - ....Imaging Chest X-ray: Report Reviewed (worsening) Problem List - Problems (1) CAD (coronary artery disease) Code(s): I25.10 - ATHSCL HEART DISEASE OF [place] CORONARY ARTERY W/O ANG PCTRS Qualifiers: Coronary Disease-Associated Artery/Lesion type: unspecified vessel or lesion type [place] vs. transplanted heart: [place] heart Associated angina: without angina Qualified Code(s): I25.10 - Atherosclerotic heart disease of [place] coronary artery without angina pectoris (2) Calculus of common duct with obstruction Code(s): K80.51 - CALCULUS OF BILE DUCT W/O CHOLANGITIS OR CHOLECYST W OBST (3) Choledocholithiasis Code(s): K80.50 - CALCULUS OF BILE DUCT W/O CHOLANGITIS OR CHOLECYST W/O OBST (4) Renal cancer Code(s): C64.9 - MALIGNANT NEOPLASM OF UNSP KIDNEY, EXCEPT RENAL PELVIS Qualifiers: Laterality: right Qualified Code(s): C64.1 - Malignant neoplasm of right kidney, except renal pelvis (5) CRISS (acute kidney injury) Code(s): N17.9 - ACUTE KIDNEY FAILURE, UNSPECIFIED (6) CKD (chronic kidney disease) Code(s): N18.9 - CHRONIC KIDNEY DISEASE, UNSPECIFIED Assessment/Plan Current Medications Generic Name Dose Route Start Last Admin Trade Name Henry PRN Reason Stop Dose Admin Chlorhexidine Gluconate 15 ml 08/10/16 22:00 08/11/16 09:13 Peridex - MM 15 ml BID SUBHA Administration Chlorhexidine Gluconate 1 applic 08/10/16 22:00 08/10/16 21:16 Hibiclens For Decolonization - TP 1 applic HS SUBHA Administration Heparin Sodium (Porcine) 5,000 unit 08/08/16 22:00 08/11/16 09:47 Heparin - SQ 5,000 unit BID SUBHA Administration Norepinephrine Bitartrate 8, 500 mls @ 18.75 mls/hr 08/08/16 06:45 08/11/16 11: 00 000 mcg/ Dextrose IV 0 mcg/min TITR SUBHA Titration Protocol 5 MCG/MIN Cefazolin Sodium 0.5 gm/ 50 mls @ 100 mls/hr 08/10/16 10:00 08/11/16 09:44 Dextrose IVPB 100 mls/hr BID SUBHA Administration Nystatin 1 applic 08/08/16 22:00 08/11/16 09:13 Nystop Powder - TP 1 applic BID SUB[facility] Administration Pantoprazole Sodium 40 mg 08/12/16 10:00 Protonix Packets For Oral Suspension - NGT DAILY [facility] Sodium Bicarbonate 1,300 mg 08/11/16 12:30 08/11/16 12:30 Sodium Bicarbonate - NGT 1,300 mg BID SUBHA Administration Ursodiol 300 mg 08/10/16 22:00 08/11/16 09:13 Actigal - PO 300 mg BID SUBHA Administration Impression 1. CKD stage 3 2. CRISS 3. choledocholithiasis 4. CAD 5. hx of Renal Cell Cancer s/p nephroectomy 6. aortic stenosis 7. sepsis 8. acute respiratory failure requiring intubation 9. NSTEMI 10. bacteremia Plan - hold fluids - discussed with ICU team, will give dose of lasix and monitor response - may need HD if renal function does not improve and if family agrees - monitor urine output - can give PO bicarb - pt now is off of pressors - maintain a MAP of 65 - change feeds to nepro - vent support - monitor in ICU Dr Medina
--- NOTE | 2016-08-11 17:26 | PN ---
Progress Note, Physician Chief Complaint: Events noted Remains in ICU on mechanical ventilation History of Present Illness: Patient was seen and examined in ICU. Intubated. Chart was reviewed Off pressor. - Current Medication List Current Medications: Active Medications Chlorhexidine Gluconate (Peridex -) 15 ml MM BID [facility] Last Admin: 08/11/16 09:13 Dose: 15 ml Chlorhexidine Gluconate (Hibiclens For Decolonization -) 1 applic TP HS [facility] Last Admin: 08/10/16 21:16 Dose: 1 applic Heparin Sodium (Porcine) (Heparin -) 5,000 unit SQ BID [facility] Last Admin: 08/11/16 09:47 Dose: 5,000 unit Norepinephrine Bitartrate 8, (000 mcg/ Dextrose) 500 mls @ 18.75 mls/hr IV TITR SUBHA; 5 MCG/MIN PRN Reason: Protocol Last Titration: 08/11/16 11:00 Dose: 0 mcg/min Cefazolin Sodium 0.5 gm/ (Dextrose) 50 mls @ 100 mls/hr IVPB BID [facility] Last Admin: 08/11/16 09:44 Dose: 100 mls/hr Nystatin (Nystop Powder -) 1 applic TP BID [facility] Last Admin: 08/11/16 09:13 Dose: 1 applic Pantoprazole Sodium (Protonix Packets For Oral Suspension -) 40 mg NGT DAILY [facility] Sodium Bicarbonate (Sodium Bicarbonate -) 1,300 mg NGT BID [facility] Last Admin: 08/11/16 12:30 Dose: 1,300 mg Ursodiol (Actigal -) 300 mg PO BID [facility] Last Admin: 08/11/16 09:13 Dose: 300 mg - Objective Vital Signs: Vital Signs Temperature 97.9 F 08/11/16 16:00 Pulse Rate 71 08/11/16 16:00 Respiratory Rate 18 08/11/16 17:09 Blood Pressure 97/50 08/11/16 16:00 O2 Sat by Pulse Oximetry (%) 91 L 08/11/16 10:30 Cardiovascular: Yes: Regular Rate and Rhythm, S1, S2 Respiratory: Yes: Intubated, Mechanically Ventilated Gastrointestinal: Yes: Normal Bowel Sounds, Soft. No: Tenderness Edema: Yes Edema: LLE: Trace, RLE: Trace Labs: CBC, BMP 08/11/16 05:15 08/11/16 05:15 INR, PTT INR 1.34 (0.82-1.09) H 08/08/16 05:15 Fibrinogen 372.0 mg/dL (238-498) 08/09/16 05:45 Problem List - Problems (1) Cellulitis, umbilical Code(s): L03.316 - CELLULITIS OF UMBILICUS (2) Choledocholithiasis Code(s): K80.50 - CALCULUS OF BILE DUCT W/O CHOLANGITIS OR CHOLECYST W/O OBST (3) Hypertension Code(s): I10 - ESSENTIAL (PRIMARY) HYPERTENSION Qualifiers: Hypertension type: essential hypertension Qualified Code(s): I10 - Essential (primary) hypertension (4) CAD (coronary artery disease) Code(s): I25.10 - ATHSCL HEART DISEASE OF [place] CORONARY ARTERY W/O ANG PCTRS Qualifiers: Coronary Disease-Associated Artery/Lesion type: unspecified vessel or lesion type [place] vs. transplanted heart: [place] heart Associated angina: without angina Qualified Code(s): I25.10 - Atherosclerotic heart disease of [place] coronary artery without angina pectoris (5) History of percutaneous coronary intervention Code(s): Z98.890 - OTHER SPECIFIED POSTPROCEDURAL STATES (6) Renal cancer Code(s): C64.9 - MALIGNANT NEOPLASM OF UNSP KIDNEY, EXCEPT RENAL PELVIS Qualifiers: Laterality: right Qualified Code(s): C64.1 - Malignant neoplasm of right kidney, except renal pelvis Assessment/Plan 1. Acute hypoxemic respiratory failure on mechanical ventilation 2. Biliary septic shock (E. coli), acute cholangitis post ERCP, balloon sphincteroplasty and stent placement with leukocytosis and lactic acidosis 3. Post TAVR for severe 4. CAD, S/P PCI/stent with demand ischemic injury 5. Severe biventricular dysfunction referable to sepsis 6. H/O Hypertension, but hypotensive requiring pressors - now taken off 7. Renal CA S/P right nephrectomy 8. Anuric acute on CKD referable to septic shock and ATN 9. Thrombocytopenia due to sepsis PLAN: 1. Continue vent management 2. Monitor renal function - check urine output with diuretic. HD if clinically indicated and if there is no improvementas 3. Antibiotics coverage 4. DVT and GI prophylaxis Prognosis: guarded Juan Hays MD
[2016-08-11] MEDS: CHLORHEXIDINE GLUCONATE 4% CLEANSER FOR DECOLONIZATION TP SCH (22:00)
[2016-08-11] MEDS ORDERED: PT OWN MED DRAWER 7, Y5N ONE (23:26)
[2016-08-12] MEDS: FUROSEMIDE 100 MG/10 ML INJECTABLE VIAL IVPB SCH ×2 (06:24→15:11)
[2016-08-12 06:44] LABS: BASOPHIL 0.3 % (0-2.0); EOSINOPHIL 4.2 % (0-4.5); MCH 29.5 pg (25.7-33.7); MEAN CELL VOLUME 86.9 fl (80-96); MEAN PLT VOLUME 11.5 fl (7.5-11.1); NEUTROPHILS 82.3 % (42.8-82.8); PLATELET COUNT 42 K/MM3 (134-434); RDW 16.9 % (11.9-15.9); WHITE BLOOD COUNT 9.7 K/mm3 (4.0-10.0)
[2016-08-12] MEDS: NOREPINEPHRINE BITARTRATE 8,000 MCG in DEXTROSE 5%-WATER - 492 ML IV SCH (06:51)
[2016-08-12 07:18] LABS: ALBUMIN 1.4 g/dl (3.4-5.0); CALCIUM 7.5 mg/dL (8.5-10.1); MAGNESIUM 2.1 mg/dL (1.8-2.4)
[2016-08-12 07:22] LABS: BILIRUBIN,TOTAL 2.9 mg/dL (0.2-1.0); COCKROFT - GAULT 11.21; CREATININE 6.7 mg/dL (0.7-1.3); PHOSPHOROUS 5.3 mg/dL (2.5-4.9)
[2016-08-12 07:33] LABS: ALLENS TEST POSITIVE; ART PUNCT SITE RIGHT RADIAL; ARTERIAL BLD GAS O2 SATURATION 97.3 % (90-98.9); ARTERIAL BLOOD GAS BASE EXCESS -8.7 meq/l (-2-2); ARTERIAL BLOOD GAS HCO3 15.1 meq/L (22-26); ARTERIAL BLOOD GAS PO2 93.6 mmHg (68-100); ARTERIAL BLOOD GAS pH 7.36 (7.35-7.45); LPM/O2% 40%; MECH. VENT. YES; PT. ON O2? YES; TYPE OF O2 VENT; VENT RATE 14; VT/PRESS 500
--- NOTE | 2016-08-12 09:18 | PN ---
Physical Exam: SUBJECTIVE: Patient seen and examined. Remains intubated, off pressors OBJECTIVE: WBC trending down Creatinine continues to rise Platelets are @ 42, will stop heparin, HIT panel 0.5 Hematology consulted for thrombocytopenia and anticoagulation SCDs to bilateral lower ext. Patient opens eyes, not following commands Vital Signs Period Temp Pulse Resp BP Sys/Hinkle Pulse Ox Last 24 Hr 97.0 F-98.1 F 70-83 18-24 91-127/45-62 91-99 GENERAL: Intubated/lethargic/wrist restraints to protect airway HEAD: Normal with no signs of trauma. NECK: Normal range of motion, supple without lymphadenopathy, JVD, or masses. LUNGS: Breath sounds equal, scattered rhonchi on posterior lungs HEART: Regular rate and rhythm ABDOMEN: +erythema, redness to periumbilical region. UPPER EXTREMITIES: Non pitting edema of bilateral hands NEUROLOGICAL: lethargic, intubated, minimally responsive SKIN: generalized jaundice, periumbilicus drainage/abscess/no odor Laboratory Results - last 24 hr 08/10/16 08/11/16 08/12/16 09:30 00:00 05:40 WBC RBC Hgb Hct MCV MCHC RDW Plt Count MPV Neutrophils % Lymphocytes % Monocytes % Eosinophils % Basophils % PTT (Actin FS) 34.4 Puncture Site ABG pH ABG pCO2 at Pt Temp ABG pO2 at Pt Temp ABG HCO3 ABG O2 Sat (Measured) ABG O2 Content ABG Base Excess Marvin Test O2 Delivery Device Oxygen Flow Rate Vent Mode Vent Rate Mechanical Rate PEEP Pressure Support Vent Sodium Potassium Chloride Carbon Dioxide Anion Gap BUN Creatinine Creat Clearance w eGFR Random Glucose Calcium Phosphorus Magnesium Total Bilirubin AST ALT Alkaline Phosphatase Creatine Kinase 60 Total Protein Albumin Hep-Induced Plt Ab Rapid 0.545 H 08/12/16 08/12/16 08/12/16 05:40 05:40 07:10 WBC 9.7 RBC 3.31 L Hgb 9.8 L Hct 28.7 L MCV 86.9 MCHC 34.0 RDW 16.9 H Plt Count 42 L MPV 11.5 H D Neutrophils % 82.3 Lymphocytes % 6.7 L D Monocytes % 6.5 D Eosinophils % 4.2 Basophils % 0.3 PTT (Actin FS) Puncture Site Right radial ABG pH 7.36 ABG pCO2 at Pt Temp 27.2 L ABG pO2 at Pt Temp 93.6 D ABG HCO3 15.1 L ABG O2 Sat (Measured) 97.3 ABG O2 Content 13.6 L ABG Base Excess -8.7 L Marvin Test Positive O2 Delivery Device Vent Oxygen Flow Rate 40% Vent Mode A/c Vent Rate 14 Mechanical Rate Yes PEEP 5.0 Pressure Support Vent 500 Sodium 133 L Potassium 4.6 Chloride 100 Carbon Dioxide 17 L Anion Gap 16 BUN 86 H Creatinine 6.7 H Creat Clearance w eGFR 7.87 Random Glucose 94 Calcium 7.5 L Phosphorus 5.3 H Magnesium 2.1 Total Bilirubin 2.9 H D AST 52 H D ALT 28 D Alkaline Phosphatase 601 H Creatine Kinase Total Protein 4.0 L Albumin 1.4 L Hep-Induced Plt Ab Rapid Active Medications Generic Name Dose Route Start Last Admin Trade Name Freq PRN Reason Stop Dose Admin Chlorhexidine Gluconate 15 ml 08/10/16 22:00 08/11/16 22:00 Peridex - MM 15 ml BID SUBHA Administration Chlorhexidine Gluconate 1 applic 08/10/16 22:00 08/11/16 22:00 Hibiclens For Decolonization - TP 1 applic HS SUBHA Administration Furosemide 100 mg 08/12/16 06:00 08/12/16 06:24 Lasix Injection - IVPB 100 mg BID@0600,1400 SUBHA Administration Norepinephrine Bitartrate 8, 500 mls @ 18.75 mls/hr 08/08/16 06:45 08/12/16 06: 51 000 mcg/ Dextrose IV Not Given TITR SUBHA Protocol 5 MCG/MIN Cefazolin Sodium 0.5 gm/ 50 mls @ 100 mls/hr 08/10/16 10:00 08/11/16 22:00 Dextrose IVPB 100 mls/hr BID SUBHA Administration Nystatin 1 applic 08/08/16 22:00 08/11/16 23:49 Nystop Powder - TP 1 applic BID [facility] Administration Pantoprazole Sodium 40 mg 08/12/16 10:00 Protonix Packets For Oral Suspension - NGT DAILY [facility] Sodium Bicarbonate 1,300 mg 08/11/16 12:30 08/11/16 22:00 Sodium Bicarbonate - NGT 1,300 mg BID SUBHA Administration Ursodiol 300 mg 08/10/16 22:00 08/11/16 22:00 Actigal - PO 300 mg BID [facility] Administration ASSESSMENT/PLAN: Patient is a 85 year old male with a significant past medical history of hypertension, CAD s/p stent placement, aortic stenosis, porcine valve replacement (takes both ASA 81mg and Plavix 75mg), 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 He was admitted on 08/06/2016 for abdominal pain, acute choledocholithiasis, acute transaminitis, jaundice and leukocytosis with shaking chills. ID: Septic Shock likely secondary to periumbilicus cellulitis vs. cholangitis - improving Periumbilical cellulitis - chronic Assessment: Wound culture +staphylococcus coag, +blood cultures with ecoli Repeat blood cultures pending WBC trending down Now on Cefazolin as per ID Surgical consult for likely drainage of abscess once pt more stable Still intubated, off pressors GI: Acute Choledocholithiasis/abdominal pain/generalized jaundice/acute transaminitis Assessment/Plan: Cholangitis s/p ERCP with biliary stent placement on 08/07 Trend LFT's On Ursodiol : Chronic Kidney Disease - acute renal failure Renal cancer s/p right nephrectomy Assessment/Plan: Creatinine 6.7, baseline ~ 1.7 Renal consulted and following, pt may need dialysis if continues to trend up as per renal On IVF, Trend bun/creat. Cardiology: Hypertension - chronic Assessment/Plan: hypotension improving, off pressors Elevated troponins - acute Assessment/Plan: Troponins continue to trend up, peaked at 7.4, now trending down Likely secondary demand ischemia and sepsis Dental Mold Maker following CAD s/p stent placement On ASA 81mg and Plavix 75mg - on hold Hematology: Thrombocytopenia Assessment/Plan: s/p 1 unit of platelets platelets @ 42 continue to drop, stopped heparin HIT panel, hematology consulted F.E.N. Fluids: sodium bicarb drip Electrolytes: monitor bmp Nutrition: on tube feeds Prophylaxis: DVT: SCDs GI: Protonix Code Status: Requires inpatient hospitalization. DNR Visit type - Emergency Visit Emergency Visit: Yes ED Registration Date: 08/06/16 Care time: The patient presented to the Emergency Department on the above date and was hospitalized for further evaluation of their emergent condition. - New Patient This patient is new to me today: No - Critical Care Critical Care patient: Yes Total Critical Care Time (in minutes): 45 Critical Care Statement: The care of this patient involved high complexity decision making to prevent further life threatening deterioration of the patient 's condition and/or to evalute & treat vital organ system(s) failure or risk of failure. - Discharge Referral Referred to [facility] Med [facility] No
--- NOTE | 2016-08-12 09:33 | PN ---
Progress Note (short form) - Note Progress Note: PULM/CCM SUBJECTIVE: Patient seen and examined in the ICU. -Remains off pressors -Awakens and tracks, not following commands yet -Does well on SBT 5/5 50%, has a cough and gag, but mental status precludes extubation today OBJECTIVE: Current Medications Chlorhexidine Gluconate (Peridex -) 15 ml MM BID [facility] Last Admin: 08/11/16 22:00 Dose: 15 ml Chlorhexidine Gluconate (Hibiclens For Decolonization -) 1 applic TP HS [facility] Last Admin: 08/11/16 22:00 Dose: 1 applic Furosemide (Lasix Injection -) 100 mg IVPB BID@0600,1400 [facility] Last Admin: 08/12/16 06:24 Dose: 100 mg Norepinephrine Bitartrate 8, (000 mcg/ Dextrose) 500 mls @ 18.75 mls/hr IV TITR SUBHA; 5 MCG/MIN PRN Reason: Protocol Last Admin: 08/12/16 06:51 Dose: Not Given Cefazolin Sodium 0.5 gm/ (Dextrose) 50 mls @ 100 mls/hr IVPB BID [facility] Last Admin: 08/11/16 22:00 Dose: 100 mls/hr Nystatin (Nystop Powder -) 1 applic TP BID [facility] Last Admin: 08/11/16 23:49 Dose: 1 applic Pantoprazole Sodium (Protonix Packets For Oral Suspension -) 40 mg NGT DAILY [facility] Sodium Bicarbonate (Sodium Bicarbonate -) 1,300 mg NGT BID [facility] Last Admin: 08/11/16 22:00 Dose: 1,300 mg Ursodiol (Actigal -) 300 mg PO BID [facility] Last Admin: 08/11/16 22:00 Dose: 300 mg Vital Signs Temp 97.2 F L 08/12/16 08:00 Pulse 82 08/12/16 08:00 Resp 24 08/12/16 08:40 BP 96/53 08/12/16 08:00 Pulse Ox 99 08/11/16 22:00 Intake & Output 08/11/16 08/12/16 08/12/16 18:59 06:59 18:59 Intake Total 1397.7 1040 Output Total 350 700 Balance 1047.7 340 Weight 102.058 kg Intake: IV 427.7 0 Levophed - 8,000 Mcg In 15.2 0 D5w - 492 ml @ 5 MCG/MIN 18.75 mls/hr IV TITR SUBHA Rx#:[id number] D5-1/2Ns - 1,000 ml @ 75 412.5 mls/hr IVPB Q14H SUBHA with Sodium Bicarbonate 8.4% - 75 Meq Rx#:[id number] IVPB 150 150 Oral 0 Tube Feeding 460 440 Tube Irrigant 360 450 Output: Urine 350 700 Marshall 350 700 Other: Voiding Method Indwelling Catheter Indwelling Catheter Indwelling Catheter Weight Measurement Method Built in [facility] EXAM: neuro: awake, tracks, does not follow HEENT: icteric sclera, PERRL Lungs: clear Heart: RRR Abd: soft Ext: edema, hot Skin: hot, dry CBC, BMP 08/12/16 05:40 08/12/16 05:40 ASSESSMENT AND PLAN: Acute Cholangitis Gram Negative Bacteremia s/p ERCP/sphincteroplasty/stent placement Acute Hypoxic Respiratory Failure Septic Shock Acute on Chronic Renal Failure Lactic Acidosis CAD +Troponins likely [place]and Ischemia s/p TAVR for severe Aortic Stenosis Thrombocytopenia - ABX per ID - Repeat ERCP with sphincterotomy when plavix effect diminished - decrease IVF - taper FiO2 to keep SpO2 >90% - monitor platelets/coags/fibrinogen levels - monitor urine output, creatinine. 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 - Monitor off sedation to assess mental status - he may be uremic - Hold feeds tomorrow morning for possible extubation - DVT/GI prophylaxis - continue ICU monitoring Robson Whitaker Pulm/Critical Care BILLIARD TABLE REPAIRER [id number]
--- NOTE | 2016-08-12 09:41 | PN ---
Progress Note, Physician Chief Complaint: Events noted Remains in ICU on mechanical ventilation History of Present Illness: Patient was seen and examined in ICU. Intubated. Chart was reviewed Still off pressor. Renal function remains with elevated creatinine and reduced urine output - Current Medication List Current Medications: Active Medications Chlorhexidine Gluconate (Peridex -) 15 ml MM BID [facility] Last Admin: 08/11/16 22:00 Dose: 15 ml Chlorhexidine Gluconate (Hibiclens For Decolonization -) 1 applic TP HS [facility] Last Admin: 08/11/16 22:00 Dose: 1 applic Furosemide (Lasix Injection -) 100 mg IVPB BID@0600,1400 [facility] Last Admin: 08/12/16 06:24 Dose: 100 mg Norepinephrine Bitartrate 8, (000 mcg/ Dextrose) 500 mls @ 18.75 mls/hr IV TITR SUBHA; 5 MCG/MIN PRN Reason: Protocol Last Admin: 08/12/16 06:51 Dose: Not Given Cefazolin Sodium 0.5 gm/ (Dextrose) 50 mls @ 100 mls/hr IVPB BID [facility] Last Admin: 08/11/16 22:00 Dose: 100 mls/hr Nystatin (Nystop Powder -) 1 applic TP BID [facility] Last Admin: 08/11/16 23:49 Dose: 1 applic Pantoprazole Sodium (Protonix Packets For Oral Suspension -) 40 mg NGT DAILY [facility] Sodium Bicarbonate (Sodium Bicarbonate -) 1,300 mg NGT BID [facility] Last Admin: 08/11/16 22:00 Dose: 1,300 mg Ursodiol (Actigal -) 300 mg PO BID [facility] Last Admin: 08/11/16 22:00 Dose: 300 mg - Objective Vital Signs: Vital Signs Temperature 97.2 F L 08/12/16 08:00 Pulse Rate 82 08/12/16 08:00 Respiratory Rate 24 08/12/16 08:40 Blood Pressure 96/53 08/12/16 08:00 O2 Sat by Pulse Oximetry (%) 99 08/11/16 22:00 Cardiovascular: Yes: Regular Rate and Rhythm, Murmur (Soft SM), S1, S2 Respiratory: Yes: Diminished, Intubated, Mechanically Ventilated Edema: Yes Edema: LLE: Trace, RLE: Trace Labs: CBC, BMP 08/12/16 05:40 08/12/16 05:40 Problem List - Problems (1) Cellulitis, umbilical Code(s): L03.316 - CELLULITIS OF UMBILICUS (2) Choledocholithiasis Code(s): K80.50 - CALCULUS OF BILE DUCT W/O CHOLANGITIS OR CHOLECYST W/O OBST (3) Hypertension Code(s): I10 - ESSENTIAL (PRIMARY) HYPERTENSION Qualifiers: Hypertension type: essential hypertension Qualified Code(s): I10 - Essential (primary) hypertension (4) CAD (coronary artery disease) Code(s): I25.10 - ATHSCL HEART DISEASE OF [place] CORONARY ARTERY W/O ANG PCTRS Qualifiers: Coronary Disease-Associated Artery/Lesion type: unspecified vessel or lesion type [place] vs. transplanted heart: [place] heart Associated angina: without angina Qualified Code(s): I25.10 - Atherosclerotic heart disease of [place] coronary artery without angina pectoris (5) History of percutaneous coronary intervention Code(s): Z98.890 - OTHER SPECIFIED POSTPROCEDURAL STATES (6) Renal cancer Code(s): C64.9 - MALIGNANT NEOPLASM OF UNSP KIDNEY, EXCEPT RENAL PELVIS Qualifiers: Laterality: right Qualified Code(s): C64.1 - Malignant neoplasm of right kidney, except renal pelvis Assessment/Plan 1. Acute hypoxemic respiratory failure on mechanical ventilation 2. Biliary septic shock (E. coli), acute cholangitis post ERCP, balloon sphincteroplasty and stent placement with leukocytosis and lactic acidosis 3. Post TAVR for severe 4. CAD, S/P PCI/stent with demand ischemic injury 5. Severe biventricular dysfunction referable to sepsis 6. H/O Hypertension, but hypotensive requiring pressors - now taken off 7. Renal CA S/P right nephrectomy 8. Anuric acute on CKD referable to septic shock and ATN 9. Thrombocytopenia due to sepsis PLAN: 1. Continue vent management 2. Monitor renal function - follow urine output with diuretic. HD if clinically indicated and if there is no improvement 3. Antibiotics coverage 4. DVT and GI prophylaxis Prognosis: guarded Juan Hays MD
[2016-08-12] MEDS ORDERED: ENOXAPARIN NA (PORCINE) 40 MG/0.4 ML DISP.SYRIN SQ SCH (10:00)
[2016-08-12] MEDS ORDERED: PT OWN MED DRAWER 7, Y5N ONE (10:32)
[2016-08-12] MEDS: URSODIOL 300 MG CAPSULE PO SCH ×2 (10:36→22:16)
[2016-08-12] MEDS: CEFAZOLIN 0.5 GM in DEXTROSE 5%-WATER - 50 ML IVPB SCH ×2 (10:37→22:17)
[2016-08-12] MEDS: SODIUM BICARBONATE 650 MG TABLET NGT SCH ×2 (10:37→22:21)
[2016-08-12] MEDS: CHLORHEXIDINE GLUCONATE 0.12% 15ML CUP MM SCH ×2 (10:37→22:17)
[2016-08-12] MEDS: PANTOPRAZOLE SOD 40 MG SUSPENSION PACKET NGT SCH (10:37)
[2016-08-12] MEDS: NYSTATIN POWDER 100,000 UNITS/GM - 15 GM TOPICAL POWDER TP SCH ×2 (10:38→22:17)
--- NOTE | 2016-08-12 11:22 | PN ---
Progress Note (short form) - Note Progress Note: more awake opens eyes to voice off pressors Vital Signs Period Temp Pulse Resp BP Sys/Hinkle Pulse Ox Last 24 Hr 97.0 F-98.1 F 70-83 18-24 91-108/45-59 98-99 remains intubated cor-rrr lungs decreased bs at bases abd soft,nt ext trace edema +stone CBC, BMP 08/12/16 05:40 08/12/16 05:40 Microbiology 08/10/16 19:20 Blood - Peripheral Venous Blood Culture - Preliminary NO GROWTH OBTAINED AFTER 24 HOURS, INCUBATION TO CONTINUE FOR 4 DAYS. 08/10/16 18:50 Blood - Peripheral Venous Blood Culture - Preliminary NO GROWTH OBTAINED AFTER 24 HOURS, INCUBATION TO CONTINUE FOR 4 DAYS. 08/06/16 18:30 Abdomen Gram Stain - Final 08/06/16 18:30 Abdomen Wound Culture - Final Staphylococcus Coagulase Neg Diphtheroid/Corynebacterium Streptococcus Viridans 08/07/16 10:42 Blood - Peripheral Venous Blood Culture - Final Escherichia Coli 08/07/16 10:40 Blood - Peripheral Venous Blood Culture - Final Escherichia Coli Current Medications Chlorhexidine Gluconate (Peridex -) 15 ml MM BID [facility] Last Admin: 08/12/16 10:37 Dose: 15 ml Chlorhexidine Gluconate (Hibiclens For Decolonization -) 1 applic TP HS [facility] Last Admin: 08/11/16 22:00 Dose: 1 applic Furosemide (Lasix Injection -) 100 mg IVPB BID@0600,1400 [facility] Last Admin: 08/12/16 06:24 Dose: 100 mg Cefazolin Sodium 0.5 gm/ (Dextrose) 50 mls @ 100 mls/hr IVPB BID [facility] Last Admin: 08/12/16 10:37 Dose: 100 mls/hr Nystatin (Nystop Powder -) 1 applic TP BID [facility] Last Admin: 08/12/16 10:38 Dose: 1 applic Pantoprazole Sodium (Protonix Packets For Oral Suspension -) 40 mg NGT DAILY [facility] Last Admin: 08/12/16 10:37 Dose: 40 mg Sodium Bicarbonate (Sodium Bicarbonate -) 1,300 mg NGT BID [facility] Last Admin: 08/12/16 10:37 Dose: 1,300 mg Ursodiol (Actigal -) 300 mg PO BID [facility] Last Admin: 08/12/16 10:36 Dose: 300 mg imp/reccd ecoli bacteremia-day #5 antibiotics biliary sepsis/resp failure/criss (one kidney) s/p cbd stent hx TAVR +troponins CRISS continue cefazolin renal f/u worsening azotemia
--- NOTE | 2016-08-12 15:06 | PN ---
GI Progress Note Subjective: GI Note: Blane opens his eyes briefly and intermittently. Bili is down to 2.9 but renal function is not improving. and nieces are at the bedside. I again reviewed the ERCP findings and the need for a repeat ERCP to make a sphincterotomy and attempt to remove the stones. I explained that the stent is temporarily, would need to be changed every 4-6 months and could fall out leaving Blane at risk of recurrent cholangitis and sepsis. I explained that the risks of ERCP include perforation and hemorrhage and also ERCP induced pancreatitis that could lead to multiorgan failure and . I explained that it would also involve repeat GET. They recognize that Blane cannot make a decision at this point. They are anticipating the need for dialysis. - Objective Vital Signs: Vital Signs Temperature 97.6 F 08/12/16 12:00 Pulse Rate 83 08/12/16 10:33 Respiratory Rate 25 H 08/12/16 14:28 Blood Pressure 106/58 08/12/16 12:00 O2 Sat by Pulse Oximetry (%) 99 08/12/16 10:33 CBC,CMP WBC 9.7 K/mm3 (4.0-10.0) 08/12/16 05:40 RBC 3.31 M/mm3 (4.00-5.60) L 08/12/16 05:40 Hgb 9.8 GM/dL (11.7-16.9) L 08/12/16 05:40 Hct 28.7 % (35.4-49) L 08/12/16 05:40 MCV 86.9 fl (80-96) 08/12/16 05:40 MCHC 34.0 g/dl (32.0-35.9) 08/12/16 05:40 RDW 16.9 % (11.9-15.9) H 08/12/16 05:40 Plt Count 42 K/MM3 (134-434) L 08/12/16 05:40 MPV 11.5 fl (7.5-11.1) H D 08/12/16 05:40 Neutrophils % 82.3 % (42.8-82.8) 08/12/16 05:40 Lymphocytes % 6.7 % (8-40) L D 08/12/16 05:40 Monocytes % 6.5 % (3.8-10.2) D 08/12/16 05:40 Eosinophils % 4.2 % (0-4.5) 08/12/16 05:40 Basophils % 0.3 % (0-2.0) 08/12/16 05:40 Band Neutrophils 11.0 % (0-10) H D 08/08/16 05:15 Metamyelocytes 5 % (0-2) H D 08/07/16 20:30 Myelocytes 9 % (0-2) H D 08/07/16 20:30 Differential Comment Manual diff done 08/09/16 08:30 Dohle Bodies 1+ 08/08/16 05:15 Platelet Estimate Decreased (NORMAL) 08/09/16 08:30 Platelet Comment No clumping noted 08/08/16 05:15 Polychromasia Few 08/08/16 05:15 Hypochromic-Microcytic Few 08/08/16 05:15 Sodium 133 mmol/L (136-145) L 08/12/16 05:40 Potassium 4.6 mmol/L (3.5-5.1) 08/12/16 05:40 Chloride 100 mmol/L (98-107) 08/12/16 05:40 Carbon Dioxide 17 mmol/L (21-32) L 08/12/16 05:40 Anion Gap 16 (8-16) 08/12/16 05:40 BUN 86 mg/dL (7-18) H 08/12/16 05:40 Creatinine 6.7 mg/dL (0.7-1.3) H 08/12/16 05:40 Creat Clearance w eGFR 7.87 (>60) 08/12/16 05:40 Random Glucose 94 mg/dL (74-106) 08/12/16 05:40 Lactic Acid 1.684 mmol/L (0.4-2.0) 08/08/16 13:20 Calcium 7.5 mg/dL (8.5-10.1) L 08/12/16 05:40 Phosphorus 5.3 mg/dL (2.5-4.9) H 08/12/16 05:40 Magnesium 2.1 mg/dL (1.8-2.4) 08/12/16 05:40 Total Bilirubin 2.9 mg/dL (0.2-1.0) H D 08/12/16 05:40 Direct Bilirubin 6.1 mg/dL (0.0-0.2) H D 08/09/16 05:45 AST 52 U/L (15-37) H D 08/12/16 05:40 ALT 28 U/L (12-78) D 08/12/16 05:40 Alkaline Phosphatase 601 U/L (45-117) H 08/12/16 05:40 Creatine Kinase 60 IU/L (39-308) 08/11/16 00:00 Creatine Kinase Index 11.8 % (0.0-5.0) H* 08/08/16 13:20 CK-MB (CK-2) 18.446 ng/ml (0.5-3.6) H 08/08/16 13:20 CK-MB (CK-2) Rel Index Cancelled 08/08/16 13:20 Troponin I 1.73 ng/ml (0.00-0.05) H* 08/11/16 05:15 C-Reactive Protein 21.5 MG/DL (0.00-0.3) H 08/08/16 05:15 Total Protein 4.0 g/dl (6.4-8.2) L 08/12/16 05:40 Albumin 1.4 g/dl (3.4-5.0) L 08/12/16 05:40 Total Amylase 49 U/L (25-115) D 08/08/16 05:15 Lipase 116 U/L (73-393) 08/08/16 05:15 Constitutional: Other (Intubated but opening eyes slightly) ...Auscultate: Yes: Normoactive Bowel Sounds ...Palpate: Yes: Soft, Other (nontender) Labs: CBC, BMP 08/12/16 05:40 08/12/16 05:40 INR, PTT INR 1.34 (0.82-1.09) H 08/08/16 05:15 Fibrinogen 372.0 mg/dL (238-498) 08/09/16 05:45 Assessment/Plan Resolving e. coli sepsis due to ascending cholangitis. Tolerating feedings. Will ultimately need ERCP with sphincterotomy and stone extractions when condition permits. Family is aware of the the risks with and without the procedure.
--- NOTE | 2016-08-12 15:58 | PN ---
Progress Note, Physician History of Present Illness: Pt seen and examined at bedside. He responded to lasix and has better urine output. He remains intubated. - Current Medication List Current Medications: Active Medications Chlorhexidine Gluconate (Peridex -) 15 ml MM BID [facility] Last Admin: 08/12/16 10:37 Dose: 15 ml Chlorhexidine Gluconate (Hibiclens For Decolonization -) 1 applic TP HS [facility] Last Admin: 08/11/16 22:00 Dose: 1 applic Furosemide (Lasix Injection -) 100 mg IVPB BID@0600,1400 [facility] Last Admin: 08/12/16 15:11 Dose: 100 mg Cefazolin Sodium 0.5 gm/ (Dextrose) 50 mls @ 100 mls/hr IVPB BID [facility] Last Admin: 08/12/16 10:37 Dose: 100 mls/hr Nystatin (Nystop Powder -) 1 applic TP BID [facility] Last Admin: 08/12/16 10:38 Dose: 1 applic Pantoprazole Sodium (Protonix Packets For Oral Suspension -) 40 mg NGT DAILY [facility] Last Admin: 08/12/16 10:37 Dose: 40 mg Sodium Bicarbonate (Sodium Bicarbonate -) 1,300 mg NGT BID [facility] Last Admin: 08/12/16 10:37 Dose: 1,300 mg Ursodiol (Actigal -) 300 mg PO BID [facility] Last Admin: 08/12/16 10:36 Dose: 300 mg - Objective Vital Signs: Vital Signs Temperature 97.6 F 08/12/16 12:00 Pulse Rate 97 H 08/12/16 14:00 Respiratory Rate 25 H 08/12/16 14:28 Blood Pressure 97/57 08/12/16 14:00 O2 Sat by Pulse Oximetry (%) 99 08/12/16 10:33 Constitutional: Yes: Calm Eyes: Yes: Conjunctiva Clear HENT: Yes: Atraumatic Cardiovascular: Yes: S1, S2 Respiratory: Yes: Mechanically Ventilated Gastrointestinal: Yes: Soft Genitourinary: Yes: [place] Present Musculoskeletal: Yes: Muscle Weakness Edema: Yes Edema: LUE: 1+, RUE: 1+, LLE: 1+, RLE: 1+ Neurological: Yes: Lethargy Labs: CBC, BMP 08/12/16 05:40 08/12/16 05:40 INR, PTT INR 1.34 (0.82-1.09) H 08/08/16 05:15 Fibrinogen 372.0 mg/dL (238-498) 08/09/16 05:45 - ....Imaging Chest X-ray: Report Reviewed Problem List - Problems (1) CAD (coronary artery disease) Code(s): I25.10 - ATHSCL HEART DISEASE OF [place] CORONARY ARTERY W/O ANG PCTRS Qualifiers: Coronary Disease-Associated Artery/Lesion type: unspecified vessel or lesion type [place] vs. transplanted heart: [place] heart Associated angina: without angina Qualified Code(s): I25.10 - Atherosclerotic heart disease of [place] coronary artery without angina pectoris (2) Calculus of common duct with obstruction Code(s): K80.51 - CALCULUS OF BILE DUCT W/O CHOLANGITIS OR CHOLECYST W OBST (3) Choledocholithiasis Code(s): K80.50 - CALCULUS OF BILE DUCT W/O CHOLANGITIS OR CHOLECYST W/O OBST (4) Renal cancer Code(s): C64.9 - MALIGNANT NEOPLASM OF UNSP KIDNEY, EXCEPT RENAL PELVIS Qualifiers: Laterality: right Qualified Code(s): C64.1 - Malignant neoplasm of right kidney, except renal pelvis (5) CRISS (acute kidney injury) Code(s): N17.9 - ACUTE KIDNEY FAILURE, UNSPECIFIED (6) CKD (chronic kidney disease) Code(s): N18.9 - CHRONIC KIDNEY DISEASE, UNSPECIFIED Assessment/Plan Current Medications Generic Name Dose Route Start Last Admin Trade Name Freq PRN Reason Stop Dose Admin Chlorhexidine Gluconate 15 ml 08/10/16 22:00 08/12/16 10:37 Peridex - MM 15 ml BID SUB[facility] Administration Chlorhexidine Gluconate 1 applic 08/10/16 22:00 08/11/16 22:00 Hibiclens For Decolonization - TP 1 applic HS [facility] Administration Furosemide 100 mg 08/12/16 06:00 08/12/16 15:11 Lasix Injection - IVPB 100 mg BID@0600,1400 [facility] Administration Cefazolin Sodium 0.5 gm/ 50 mls @ 100 mls/hr 08/10/16 10:00 08/12/16 10:37 Dextrose IVPB 100 mls/hr BID [facility] Administration Nystatin 1 applic 08/08/16 22:00 08/12/16 10:38 Nystop Powder - TP 1 applic BID [facility] Administration Pantoprazole Sodium 40 mg 08/12/16 10:00 08/12/16 10:37 Protonix Packets For Oral Suspension - NGT 40 mg DAILY [facility] Administration Sodium Bicarbonate 1,300 mg 08/11/16 12:30 08/12/16 10:37 Sodium Bicarbonate - NGT 1,300 mg BID [facility] Administration Ursodiol 300 mg 08/10/16 22:00 08/12/16 10:36 Actigal - PO 300 mg BID [facility] Administration Impression 1. CKD stage 3 2. CRISS 3. choledocholithiasis 4. CAD 5. hx of Renal Cell Cancer s/p nephroectomy 6. aortic stenosis 7. sepsis 8. acute respiratory failure requiring intubation 9. NSTEMI 10. bacteremia Plan - will give another dose of lasix today - spoke to family at length, including and both of his nieces. I explained the risks of dialysis. Pts renal function is worsening. They agree to dialysis if does not show improvement by tomorrow. Explained risks of vascular access and of HD - repeat labs in am - monitor urine output - pulmonary follow up - GI input appreciated - pt is maintaining his blood pressure off of pressors - do not restart fluids - maintain a MAP of 65 - vent support - monitor in ICU Dr Medina
--- NOTE | 2016-08-12 22:03 | CONSULT ---
Consult - text type - Consultation Consultation Note: This is an 85 y/o male with pmhx significant for renal cell CA S/P right nephrectomy, HTN, CAD S/P PCI/stent (1995) and S/P TAVR (at [facility] in 2015 - followed by Dr. Aubrey Vieyra) presents with an abnormal MRI of abdomen showing prominent head of pancreas, large distal CBD stone and dilated CBD and labs c/w cholangitis. Pt had an ERCP with balloon sphinctertomy and stent placement. Pt tolerated procedure well and was extubated however pt was apneic and re-intubated. In ICU pt was given NS bolus of 500cc given he was requiring dopamine for pressor support and tachycardic upon arrival. He is being treated for sepsis/cholangitis Patient currently intubated/sedated - History Source History Provided By: Medical Record Limitations to Obtaining History: Clinical Condition - Past Medical History Cardio/Vascular: Yes: Aortic Stenosis (Post TAVR at [facility] in 2015), CAD (s/p cardiac stent/ PCI 1995), HTN, Hyperlipdemia, Other Gastrointestinal: No: Irritable Bowel Disease Hepatobiliary: Yes: Cholelithiasis Renal/: Yes: Renal Inusuff, Cancer (Renal CA ), Renal Calculi, Other ( urethral stricture s/p cystoscopy, nephrectomy for RCC) - Past Surgical History Past Surgical History: Yes: Nephrectomy, Stent, Valve Replacement (TAVR) - Smoking History Smoking history: Never smoked - Social History Usual Living Arrangement: With Spouse - Allergies Allergies/Adverse Reactions: Allergies Allergy/AdvReac Type Severity Reaction Status Date / Time Penicillins Allergy Verified 08/06/16 15:20 - Home Medications Home Medications: Ambulatory Orders Aspirin Coated [Ecotrin -] 81 mg PO DAILY 04/19/14 Montelukast Na [Singulair -] 10 mg PO HS 12/02/15 Atorvastatin Ca [Lipitor] 40 mg PO HS 05/13/16 Finasteride 5 mg PO DAILY 05/13/16 Sebastian-3 Fatty Acids [Sebastian-3] 1,500 mg PO 08/06/16 Active Medications Chlorhexidine Gluconate (Peridex -) 15 ml MM BID [facility] Last Admin: 08/12/16 10:37 Dose: 15 ml Chlorhexidine Gluconate (Hibiclens For Decolonization -) 1 applic TP HS [facility] Last Admin: 08/11/16 22:00 Dose: 1 applic Furosemide (Lasix Injection -) 100 mg IVPB BID@0600,1400 [facility] Last Admin: 08/12/16 15:11 Dose: 100 mg Cefazolin Sodium 0.5 gm/ (Dextrose) 50 mls @ 100 mls/hr IVPB BID [facility] Last Admin: 08/12/16 10:37 Dose: 100 mls/hr Nystatin (Nystop Powder -) 1 applic TP BID [facility] Last Admin: 08/12/16 10:38 Dose: 1 applic Pantoprazole Sodium (Protonix Packets For Oral Suspension -) 40 mg NGT DAILY [facility] Last Admin: 08/12/16 10:37 Dose: 40 mg Sodium Bicarbonate (Sodium Bicarbonate -) 1,300 mg NGT BID [facility] Last Admin: 08/12/16 10:37 Dose: 1,300 mg Ursodiol (Actigal -) 300 mg PO BID [facility] Last Admin: 08/12/16 10:36 Dose: 300 mg Family Disease History - Family Disease History Family Disease History: Other: Father ( 80's unclear cause), Mother ( 80 's CVA/[place]), Brother (1 brother CHF, 1 brother stomach cancer) Physical Exam Vital Signs: Last Vital Signs Temp Pulse Resp BP Pulse Ox 98.6 F 92 H 24 102/51 99 08/12/16 20:00 08/12/16 20:00 08/12/16 20:00 08/12/16 20:00 08/12/16 10:33 intubated Cor: RSR, No murmurs, No gallops Lungs: Clear to P&A Abd: Soft, Normal bowel sounds, No organomegaly Ext:No significant edema Skin: No rashes, Integument intact Assessment/Plan This is an 85 y/o male with a past medical history significant for renal CA S/P right nephrectomy, HTN, CAD S/P PCI/stent (1995) and S/P TAVR (at [facility] in 2015 - followed by Dr. Aubrey Vieyra) presents with an abnormal MRI of abdomen showing prominent head of pancrease, large distal CBD stone and dilated CBD. Pt underwent an ERCP with balloon sphincterotomy and stent placement with post-procedure failed extubation necessitating reintubation and transfer to ICU for further medical care. biliary sepsis/CRISS/resp. failure thrombocytopenia---presumable due to bacteremia/cholangitits/sepsis expect it to improve timing not c/ww hit borderline hit ab most likely false + check Serotonin release assy monitor coags/CBC
[2016-08-12] MEDS: CHLORHEXIDINE GLUCONATE 4% CLEANSER FOR DECOLONIZATION TP SCH (22:17)
[2016-08-13] MEDS: FUROSEMIDE 100 MG/10 ML INJECTABLE VIAL IVPB SCH ×2 (05:09→17:57)
[2016-08-13 06:26] LABS: BASOPHIL 0.3 % (0-2.0); EOSINOPHIL 3.9 % (0-4.5); MCH 29.5 pg (25.7-33.7); MCHC 33.9 g/dl (32.0-35.9); MEAN CELL VOLUME 86.9 fl (80-96); MEAN PLT VOLUME 11.5 fl (7.5-11.1); NEUTROPHILS 77.6 % (42.8-82.8); PLATELET COUNT 45 K/MM3 (134-434); RDW 16.3 % (11.9-15.9); WHITE BLOOD COUNT 8.4 K/mm3 (4.0-10.0)
[2016-08-13 06:50] LABS: ALBUMIN 1.4 g/dl (3.4-5.0); PHOSPHOROUS 6.3 mg/dL (2.5-4.9)
[2016-08-13 06:57] LABS: BILIRUBIN,TOTAL 2.2 mg/dL (0.2-1.0); CALCIUM 7.4 mg/dL (8.5-10.1); COCKROFT - GAULT 10.42; CREATININE 7.2 mg/dL (0.7-1.3); MAGNESIUM 2.2 mg/dL (1.8-2.4); TOT PROT 4.2 g/dl (6.4-8.2)
[2016-08-13 07:23] LABS: ARTERIAL BLD GAS O2 SATURATION 99.2 % (90-98.9); ARTERIAL BLOOD GAS BASE EXCESS -9.2 meq/l (-2-2); ARTERIAL BLOOD GAS HCO3 15.1 meq/L (22-26); ARTERIAL BLOOD GAS pH 7.35 (7.35-7.45)
[2016-08-13 07:24] LABS: ALLENS TEST POSITIVE; ART PUNCT SITE RIGHT RADIAL; LPM/O2% 40%; MECH. VENT. ESPRIT; PT. ON O2? YES; TYPE OF O2 MEC.VENT; VT/PRESS 500
[2016-08-13 07:25] LABS: VENT RATE 14
[2016-08-13 07:43] LABS: INR 1.07 (0.82-1.09); PROTHROMBIN TIME (PATIENT) 11.8 SEC (9.98-11.88)
[2016-08-13] MEDS ORDERED: PT OWN MED DRAWER 7, Y5N ONE ×2 (09:33→22:24)
[2016-08-13] MEDS: SODIUM BICARBONATE 650 MG TABLET NGT SCH ×2 (09:36→22:24)
[2016-08-13] MEDS: CHLORHEXIDINE GLUCONATE 0.12% 15ML CUP MM SCH ×2 (09:37→22:25)
[2016-08-13] MEDS: PANTOPRAZOLE SOD 40 MG SUSPENSION PACKET NGT SCH (09:37)
[2016-08-13] MEDS: CEFAZOLIN 0.5 GM in DEXTROSE 5%-WATER - 50 ML IVPB SCH ×2 (09:37→22:24)
[2016-08-13] MEDS: URSODIOL 300 MG CAPSULE PO SCH ×2 (09:37→22:24)
[2016-08-13] MEDS: NYSTATIN POWDER 100,000 UNITS/GM - 15 GM TOPICAL POWDER TP SCH ×2 (09:38→22:25)
--- NOTE | 2016-08-13 10:30 | PN ---
Progress Note, Physician History of Present Illness: Arousable on mechanical ventilation, weaned off pressors. - Current Medication List Current Medications: Active Medications Chlorhexidine Gluconate (Peridex -) 15 ml MM BID [facility] Last Admin: 08/13/16 09:37 Dose: 15 ml Chlorhexidine Gluconate (Hibiclens For Decolonization -) 1 applic TP HS [facility] Last Admin: 08/12/16 22:17 Dose: 1 applic Furosemide (Lasix Injection -) 100 mg IVPB BID@0600,1400 [facility] Last Admin: 08/13/16 05:09 Dose: 100 mg Cefazolin Sodium 0.5 gm/ (Dextrose) 50 mls @ 100 mls/hr IVPB BID [facility] Last Admin: 08/13/16 09:37 Dose: 100 mls/hr Nystatin (Nystop Powder -) 1 applic TP BID [facility] Last Admin: 08/13/16 09:38 Dose: 1 applic Pantoprazole Sodium (Protonix Packets For Oral Suspension -) 40 mg NGT DAILY [facility] Last Admin: 08/13/16 09:37 Dose: 40 mg Sodium Bicarbonate (Sodium Bicarbonate -) 1,300 mg NGT BID [facility] Last Admin: 08/13/16 09:36 Dose: 1,300 mg Ursodiol (Actigal -) 300 mg PO BID [facility] Last Admin: 08/13/16 09:37 Dose: 300 mg - Objective Vital Signs: Vital Signs Temperature 97.8 F 08/13/16 09:59 Pulse Rate 81 08/13/16 10:08 Respiratory Rate 21 08/13/16 09:59 Blood Pressure 103/57 08/13/16 09:59 O2 Sat by Pulse Oximetry (%) 97 08/13/16 10:08 Constitutional: Yes: No Distress, Calm Neck: Yes: Supple Cardiovascular: Yes: Regular Rate and Rhythm, Murmur (2/6 SM) Respiratory: Yes: Intubated, Mechanically Ventilated, Rhonchi Gastrointestinal: Yes: Normal Bowel Sounds, Soft Edema: Yes Edema: LLE: Trace, RLE: Trace Labs: CBC, BMP 08/13/16 05:35 08/13/16 05:35 INR, PTT INR 1.07 (0.82-1.09) 08/13/16 05:35 Fibrinogen 463.0 mg/dL (238-498) D 08/13/16 05:35 - ....Imaging Chest X-ray: Report Reviewed (Left [id number], left ATX) Problem List - Problems (1) CRISS (acute kidney injury) Code(s): N17.9 - ACUTE KIDNEY FAILURE, UNSPECIFIED (2) Bacteremia due to Gram-negative bacteria Code(s): R78.81 - BACTEREMIA (3) Biliary sepsis Code(s): K83.0 - CHOLANGITIS (4) CAD (coronary artery disease) Code(s): I25.10 - ATHSCL HEART DISEASE OF [place] CORONARY ARTERY W/O ANG PCTRS Qualifiers: Coronary Disease-Associated Artery/Lesion type: unspecified vessel or lesion type [place] vs. transplanted heart: [place] heart Associated angina: without angina Qualified Code(s): I25.10 - Atherosclerotic heart disease of [place] coronary artery without angina pectoris (5) CKD (chronic kidney disease) Code(s): N18.9 - CHRONIC KIDNEY DISEASE, UNSPECIFIED (6) Calculus of common duct with obstruction Code(s): K80.51 - CALCULUS OF BILE DUCT W/O CHOLANGITIS OR CHOLECYST W OBST (7) History of percutaneous coronary intervention Code(s): Z98.890 - OTHER SPECIFIED POSTPROCEDURAL STATES (8) S/P ERCP Code(s): Z98.890 - OTHER SPECIFIED POSTPROCEDURAL STATES (9) Thrombocytopenia Code(s): D69.6 - THROMBOCYTOPENIA, UNSPECIFIED (10) Acute hypoxemic respiratory failure Code(s): J96.01 - ACUTE RESPIRATORY FAILURE WITH HYPOXIA (11) Gram negative septic shock Code(s): A41.50 - GRAM-NEGATIVE SEPSIS, UNSPECIFIED R65.21 - SEVERE SEPSIS WITH SEPTIC SHOCK (12) Left bundle branch block Code(s): I44.7 - LEFT BUNDLE-BRANCH BLOCK, UNSPECIFIED (13) Demand ischemia Code(s): I24.8 - OTHER FORMS OF ACUTE ISCHEMIC HEART DISEASE Assessment/Plan 1. Acute hypoxemic respiratory failure on mechanical ventilation 2. Post biliary septic shock (E. coli), acute cholangitis post ERCP, balloon sphincteroplasty and stent placement with leukocytosis and lactic acidosis resolving 3. Post TAVR for severe 4. CAD, S/P PCI/stent with demand ischemic injury 5. Severe biventricular dysfunction referable to sepsis 6. H/O Hypertension, but hypotensive requiring pressors - now weaned off 7. Renal CA S/P right nephrectomy 8. Oliguric acute on CKD referable to septic shock and ATN 9. Thrombocytopenia due to sepsis PLAN: 1. Continue vent management with wean per ABG 2. Monitor renal function - follow urine output with Lasix 100 IV bid. Likely plan for HD after vascular access 3. Antibiotics coverage Ancef per C&S 4. DVT and GI prophylaxis
--- NOTE | 2016-08-13 11:10 | PN ---
Physical Exam: SUBJECTIVE: Patient seen and examined off sedation/off pressors. opens eyes but otherwise does not follow commands. consented over the weekend for catheter to be place for dialysis. OBJECTIVE: Vital Signs Period Temp Pulse Resp BP Sys/Hinkle Pulse Ox Last 24 Hr 97.4 F-99.5 F 70-98 18-28 90-115/48-58 96-98 EYES: sluggish pupilary response, conjunctiva clear. No ptosis. icteric sclera, scleral edema in lower part of eye. ENT: oropharynx with endotracheal tube and OG tube, dry mucous membranes. LUNGS: Breath sounds equal, clear at apices, diminished breath sounds at bases HEART: Regular rate and rhythm, S1, S2 without murmur, rub or gallop. ABDOMEN: Soft, nondistended, multiple diffuse palpable soft mobile nodularities , normoactive bowel sounds, periumbilical erythema with demuted skin laterally along skin fold, scant serous discharge in umbilicus, covered with nystatin power EXTREMITIES: 2+ pulses in b/l radial and DP, warm, well-perfused, no edema. scd' s in place. SKIN: Warm, improved jaundiced Stone in place. left IJ site CDI Laboratory Results - last 24 hr 08/13/16 08/13/16 08/13/16 05:35 05:35 05:35 WBC 8.4 RBC 3.06 L Hgb 9.0 L Hct 26.6 L MCV 86.9 MCHC 33.9 RDW 16.3 H Plt Count 45 L MPV 11.5 H Neutrophils % 77.6 Lymphocytes % 8.6 D Monocytes % 9.6 Eosinophils % 3.9 Basophils % 0.3 INR PTT (Actin FS) 32.6 Fibrinogen Puncture Site ABG pH ABG pCO2 at Pt Temp ABG pO2 at Pt Temp ABG HCO3 ABG O2 Sat (Measured) ABG O2 Content ABG Base Excess Marvin Test O2 Delivery Device Oxygen Flow Rate Vent Mode Vent Rate Mechanical Rate PEEP Pressure Support Vent Sodium 134 L Potassium 4.6 Chloride 100 Carbon Dioxide 17 L Anion Gap 17 H BUN 94 H Creatinine 7.2 H Creat Clearance w eGFR 7.24 Random Glucose 91 Calcium 7.4 L Phosphorus 6.3 H Magnesium 2.2 Total Bilirubin 2.2 H D AST 45 H ALT 18 D Alkaline Phosphatase 548 H Total Protein 4.2 L Albumin 1.4 L 08/13/16 08/13/16 05:35 07:15 WBC RBC Hgb Hct MCV MCHC RDW Plt Count MPV Neutrophils % Lymphocytes % Monocytes % Eosinophils % Basophils % INR 1.07 PTT (Actin FS) Fibrinogen 463.0 D Puncture Site Right radial ABG pH 7.35 ABG pCO2 at Pt Temp 28.2 L ABG pO2 at Pt Temp 141.0 H D ABG HCO3 15.1 L ABG O2 Sat (Measured) 99.2 H ABG O2 Content 12.9 L ABG Base Excess -9.2 L Marvin Test Positive O2 Delivery Device Mec.vent Oxygen Flow Rate 40% Vent Mode A/c Vent Rate 14 Mechanical Rate Esprit PEEP 7.0 Pressure Support Vent 500 Sodium Potassium Chloride Carbon Dioxide Anion Gap BUN Creatinine Creat Clearance w eGFR Random Glucose Calcium Phosphorus Magnesium Total Bilirubin AST ALT Alkaline Phosphatase Total Protein Albumin Active Medications Generic Name Dose Route Start Last Admin Trade Name Freq PRN Reason Stop Dose Admin Chlorhexidine Gluconate 15 ml 08/10/16 22:00 08/13/16 09:37 Peridex - MM 15 ml BID SUBHA Administration Chlorhexidine Gluconate 1 applic 08/10/16 22:00 08/12/16 22:17 Hibiclens For Decolonization - TP 1 applic HS SUBHA Administration Furosemide 100 mg 08/12/16 06:00 08/13/16 05:09 Lasix Injection - IVPB 100 mg BID@0600,1400 SUBHA Administration Cefazolin Sodium 0.5 gm/ 50 mls @ 100 mls/hr 08/10/16 10:00 08/13/16 09:37 Dextrose IVPB 100 mls/hr BID SUBHA Administration Nystatin 1 applic 08/08/16 22:00 08/13/16 09:38 Nystop Powder - TP 1 applic BID SUBHA Administration Pantoprazole Sodium 40 mg 08/12/16 10:00 08/13/16 09:37 Protonix Packets For Oral Suspension - NGT 40 mg DAILY SUBHA Administration Sodium Bicarbonate 1,300 mg 08/11/16 12:30 08/13/16 09:36 Sodium Bicarbonate - NGT 1,300 mg BID SUBHA Administration Ursodiol 300 mg 08/10/16 22:00 08/13/16 09:37 Actigal - PO 300 mg BID SUBHA Administration Intake & Output 08/10/16 08/11/16 08/12/1617 23:59 23:59 23:59 23:59 Intake Total 3455.0 2848.7 1710 460 Output Total 699 646 7350 800 Balance 3265.0 2058.7 660 -340 Weight 218 lb 14.704 oz 220 lb 3.2 oz 225 lb 224 lb 14.4 oz ASSESSMENT/PLAN: 85 yr old man with HTN, aortic stenosis, CAD s/p stents, r-nephroctomy(renal ca) , pancreatic head density found to have choleluithaisis with obstructing CBD, s/ p ERCP with stent placement(unable to undergo sphincterectomy due to anticoagulation) complicated by septic shock requiring ICU admission. Renal oliguric CRISS/ATN due to sepsis induced hypoperfusion, on CKD stage 3 - add bicarb as abg with acidosis, limited fluids(changed free water with feeds from 30cc to 10cc) - monitor I&O, stone in place, urine output 1050cc/24hr, - Left IJ dialsyis cather placed today 08/13 - HD today - renal dosing of medications consult: Dr. Medina Infectious Disease Septic shock with multi-organ failure likely secondary to cholangitis and e.coli bactermia(likely gallbladder as primary source) - ofirmev 1gm IVpb q6hr for fever Abx tx: Cefazolin (renally dosed) start 08/10 - day 4 - topical antifungal cream to periumbical area Fluids: avoid fluid overload - sodium bicarb 1300 NGT BID Pressure suport: off pressors today Goal MAP>65, CVP 8-12, current CVP 5 Consult: Dr. Boggs Cardiovascular Normotensive, CVP 5 - tropinins trended down - maintain Goal: MAP>65, CVP 8-12 consult: dr. ayala Pulmonary acute hypoxic respiratory failure - on ventilatory support taper FiO2 to keep Spo2 >90% Gastrointestinal Cholangitis s/p ERCP with biliary stent placement tube feedings with Jevity actigal to soften gall stones trend LFT's, trending down Abdominal CT scan without abscess or free abdominal air, no SBO. stranding of mesentery in lower abdomen suggestive of edema, diverticulosis coli with mild stranding in jxn of the distal descending and poximal sigmoid colon, small amount of free fluid in pelvis prophylaxis with zantac daily consult: Dr. Thompson Hematological normocytic anemia - chronic, trend h/h, monitor for bleeding leucocytosis improved thrombocytopenia - likely due to sepsis, r./o DIC; trend fibrinogen and fibrin degradation products maintain platelet >20,000 Dermatological periumbical discharge - topical antifungal Dr Weems consulted for surgical eval; patient is high risk for operative intervention, recommend IR intervention for percutaneous drainage - no collection noted on CT scan. Dr. Carney consulted Neurological improved mentation, opening eyes, makes eye contact, does not track, does not follow commands. DVT: heparin 5000 units SQ BID Diet: initiate tube feeding with Jevity volume based Visit type - Emergency Visit Emergency Visit: No - New Patient This patient is new to me today: No - Critical Care Critical Care patient: Yes Total Critical Care Time (in minutes): 39 Critical Care Statement: The care of this patient involved high complexity decision making to prevent further life threatening deterioration of the patient 's condition and/or to evalute & treat vital organ system(s) failure or risk of failure.
--- NOTE | 2016-08-13 12:19 | PN ---
GI Progress Note Subjective: GI NOte: Having catheter inserted for dialysis. Remains on respirator. Discussed case with Dr Ledesma. - Objective Vital Signs: Vital Signs Temperature 97.8 F 08/13/16 09:59 Pulse Rate 81 08/13/16 10:08 Respiratory Rate 21 08/13/16 11:48 Blood Pressure 103/57 08/13/16 09:59 O2 Sat by Pulse Oximetry (%) 97 08/13/16 10:08 Laboratory Tests 08/09/16 08/12/16 08/13/16 08:30 05:40 05:35 WBC 35.9 H* Hgb Plt Count INR BUN 86 H 94 H Creatinine 6.7 H 7.2 H Total Bilirubin 2.9 H D 2.2 H D AST 45 H ALT 18 D Alkaline Phosphatase 601 H 548 H Albumin 1.4 L 08/13/16 08/13/16 05:35 05:35 WBC 8.4 Hgb 9.0 L Plt Count 45 L INR 1.07 BUN Creatinine Total Bilirubin AST ALT Alkaline Phosphatase Albumin Labs: CBC, BMP 08/13/16 05:35 08/13/16 05:35 INR, PTT INR 1.07 (0.82-1.09) 08/13/16 05:35 Fibrinogen 463.0 mg/dL (238-498) D 08/13/16 05:35 Assessment/Plan Resolving e. coli sepsis due to ascending cholangitis. Tolerating feedings. Hoping to schedule ERCP with sphincterotomy and stone extractions at the end of the week if condition permits. Family is aware of the the risks with and without the procedure. His thrombocytopenia precludes sphincterotomy at this time. DIC was felt to be etiology so anticipate recovery now that sepsis is controlled. Hematology input appreciated.
--- NOTE | 2016-08-13 13:34 | PN ---
Progress Note, Physician History of Present Illness: Pt seen and examined at bedside. He remains in the ICU intubated. His renal function continues to worsen. Family are at bedside. They have signed consent for HD yesterday. - Current Medication List Current Medications: Active Medications Chlorhexidine Gluconate (Peridex -) 15 ml MM BID [facility] Last Admin: 08/13/16 09:37 Dose: 15 ml Chlorhexidine Gluconate (Hibiclens For Decolonization -) 1 applic TP HS [facility] Last Admin: 08/12/16 22:17 Dose: 1 applic Furosemide (Lasix Injection -) 100 mg IVPB BID@0600,1400 SUBHA Last Admin: 08/13/16 05:09 Dose: 100 mg Cefazolin Sodium 0.5 gm/ (Dextrose) 50 mls @ 100 mls/hr IVPB BID [facility] Last Admin: 08/13/16 09:37 Dose: 100 mls/hr Nystatin (Nystop Powder -) 1 applic TP BID [facility] Last Admin: 08/13/16 09:38 Dose: 1 applic Pantoprazole Sodium (Protonix Packets For Oral Suspension -) 40 mg NGT DAILY [facility] Last Admin: 08/13/16 09:37 Dose: 40 mg Sodium Bicarbonate (Sodium Bicarbonate -) 1,300 mg NGT BID [facility] Last Admin: 08/13/16 09:36 Dose: 1,300 mg Ursodiol (Actigal -) 300 mg PO BID [facility] Last Admin: 08/13/16 09:37 Dose: 300 mg - Objective Vital Signs: Vital Signs Temperature 97.8 F 08/13/16 09:59 Pulse Rate 81 08/13/16 10:08 Respiratory Rate 21 08/13/16 11:48 Blood Pressure 103/57 08/13/16 09:59 O2 Sat by Pulse Oximetry (%) 97 08/13/16 10:08 Constitutional: Yes: Anxious Cardiovascular: Yes: S1, S2 Respiratory: Yes: Mechanically Ventilated Gastrointestinal: Yes: Soft Genitourinary: Yes: [place] Present Musculoskeletal: Yes: Muscle Weakness Edema: Yes Edema: LUE: 1+, RUE: 1+, LLE: 2+, RLE: 2+ Neurological: Yes: Lethargy Labs: CBC, BMP 08/13/16 05:35 08/13/16 05:35 INR, PTT INR 1.07 (0.82-1.09) 08/13/16 05:35 Fibrinogen 463.0 mg/dL (238-498) D 08/13/16 05:35 - ....Imaging Chest X-ray: Report Reviewed Problem List - Problems (1) CAD (coronary artery disease) Code(s): I25.10 - ATHSCL HEART DISEASE OF [place] CORONARY ARTERY W/O ANG PCTRS Qualifiers: Coronary Disease-Associated Artery/Lesion type: unspecified vessel or lesion type [place] vs. transplanted heart: [place] heart Associated angina: without angina Qualified Code(s): I25.10 - Atherosclerotic heart disease of [place] coronary artery without angina pectoris (2) Calculus of common duct with obstruction Code(s): K80.51 - CALCULUS OF BILE DUCT W/O CHOLANGITIS OR CHOLECYST W OBST (3) Choledocholithiasis Code(s): K80.50 - CALCULUS OF BILE DUCT W/O CHOLANGITIS OR CHOLECYST W/O OBST (4) Renal cancer Code(s): C64.9 - MALIGNANT NEOPLASM OF UNSP KIDNEY, EXCEPT RENAL PELVIS Qualifiers: Laterality: right Qualified Code(s): C64.1 - Malignant neoplasm of right kidney, except renal pelvis (5) CRISS (acute kidney injury) Code(s): N17.9 - ACUTE KIDNEY FAILURE, UNSPECIFIED (6) CKD (chronic kidney disease) Code(s): N18.9 - CHRONIC KIDNEY DISEASE, UNSPECIFIED Assessment/Plan Current Medications Generic Name Dose Route Start Last Admin Trade Name Freq PRN Reason Stop Dose Admin Chlorhexidine Gluconate 15 ml 08/10/16 22:00 08/12/16 10:37 Peridex - MM 15 ml BID SUBHA Administration Chlorhexidine Gluconate 1 applic 08/10/16 22:00 08/11/16 22:00 Hibiclens For Decolonization - TP 1 applic HS SUBHA Administration Furosemide 100 mg 08/12/16 06:00 08/12/16 15:11 Lasix Injection - IVPB 100 mg BID@0600,1400 SUBHA Administration Cefazolin Sodium 0.5 gm/ 50 mls @ 100 mls/hr 08/10/16 10:00 08/12/16 10:37 Dextrose IVPB 100 mls/hr BID SUBHA Administration Nystatin 1 applic 08/08/16 22:00 08/12/16 10:38 Nystop Powder - TP 1 applic BID SUBHA Administration Pantoprazole Sodium 40 mg 08/12/16 10:00 08/12/16 10:37 Protonix Packets For Oral Suspension - NGT 40 mg DAILY SUBHA Administration Sodium Bicarbonate 1,300 mg 08/11/16 12:30 08/12/16 10:37 Sodium Bicarbonate - NGT 1,300 mg BID SUBHA Administration Ursodiol 300 mg 08/10/16 22:00 08/12/16 10:36 Actigal - PO 300 mg BID SUBHA Administration Impression 1. CKD stage 3 2. CRISS 3. choledocholithiasis 4. CAD 5. hx of Renal Cell Cancer s/p nephroectomy 6. aortic stenosis 7. sepsis 8. acute respiratory failure requiring intubation 9. NSTEMI 10. bacteremia Plan - will arrange for HD today - will likely dialyze again tomorrow - hold off lasix for now - repeat labs in am - access is in place - pulmonary follow up - GI input appreciated - maintain a MAP of 65 - vent support - monitor in ICU Dr Medina
--- NOTE | 2016-08-13 14:17 | PN ---
Physical Exam: SUBJECTIVE: Patient seen and examined in the ICU. Remains intubated. OBJECTIVE: WBC continues to trend down Creatinine continues to rise Platelets are @ 45, Heparin on hold until platelets recover SCDs to bilateral lower ext. Patient opens eyes, not following commands, remains intubated. Vital Signs Period Temp Pulse Resp BP Sys/Hinkle Pulse Ox Last 24 Hr 97.4 F-99.5 F 70-98 18-26 90-115/48-57 96-98 GENERAL: Intubated/lethargic/wrist restraints to protect airway HEAD: Normal with no signs of trauma. NECK: Normal range of motion, supple without lymphadenopathy, JVD, or masses. LUNGS: Breath sounds equal, scattered rhonchi on posterior lungs HEART: Regular rate and rhythm ABDOMEN: +erythema, redness to periumbilical region. UPPER EXTREMITIES: Non pitting edema of bilateral hands NEUROLOGICAL: lethargic, intubated, minimally responsive SKIN: generalized jaundice, periumbilicus drainage/abscess/no odor Laboratory Results - last 24 hr 08/13/16 08/13/16 08/13/16 05:35 05:35 05:35 WBC 8.4 RBC 3.06 L Hgb 9.0 L Hct 26.6 L MCV 86.9 MCHC 33.9 RDW 16.3 H Plt Count 45 L MPV 11.5 H Neutrophils % 77.6 Lymphocytes % 8.6 D Monocytes % 9.6 Eosinophils % 3.9 Basophils % 0.3 INR PTT (Actin FS) 32.6 Fibrinogen Puncture Site ABG pH ABG pCO2 at Pt Temp ABG pO2 at Pt Temp ABG HCO3 ABG O2 Sat (Measured) ABG O2 Content ABG Base Excess Marvin Test O2 Delivery Device Oxygen Flow Rate Vent Mode Vent Rate Mechanical Rate PEEP Pressure Support Vent Sodium 134 L Potassium 4.6 Chloride 100 Carbon Dioxide 17 L Anion Gap 17 H BUN 94 H Creatinine 7.2 H Creat Clearance w eGFR 7.24 Random Glucose 91 Calcium 7.4 L Phosphorus 6.3 H Magnesium 2.2 Total Bilirubin 2.2 H D AST 45 H ALT 18 D Alkaline Phosphatase 548 H Total Protein 4.2 L Albumin 1.4 L 08/13/16 08/13/16 05:35 07:15 WBC RBC Hgb Hct MCV MCHC RDW Plt Count MPV Neutrophils % Lymphocytes % Monocytes % Eosinophils % Basophils % INR 1.07 PTT (Actin FS) Fibrinogen 463.0 D Puncture Site Right radial ABG pH 7.35 ABG pCO2 at Pt Temp 28.2 L ABG pO2 at Pt Temp 141.0 H D ABG HCO3 15.1 L ABG O2 Sat (Measured) 99.2 H ABG O2 Content 12.9 L ABG Base Excess -9.2 L Marvin Test Positive O2 Delivery Device Mec.vent Oxygen Flow Rate 40% Vent Mode A/c Vent Rate 14 Mechanical Rate Esprit PEEP 7.0 Pressure Support Vent 500 Sodium Potassium Chloride Carbon Dioxide Anion Gap BUN Creatinine Creat Clearance w eGFR Random Glucose Calcium Phosphorus Magnesium Total Bilirubin AST ALT Alkaline Phosphatase Total Protein Albumin Active Medications Generic Name Dose Route Start Last Admin Trade Name Freq PRN Reason Stop Dose Admin Albumin Human 12.5 gm 08/13/16 14:00 Albumin Human 25% IVPB 08/13/16 15:31 Q30M SUBHA Chlorhexidine Gluconate 15 ml 08/10/16 22:00 08/13/16 09:37 Peridex - MM 15 ml BID SUBHA Administration Chlorhexidine Gluconate 1 applic 08/10/16 22:00 08/12/16 22:17 Hibiclens For Decolonization - TP 1 applic HS SUBHA Administration Furosemide 100 mg 08/12/16 06:00 08/13/16 05:09 Lasix Injection - IVPB 100 mg BID@0600,1400 SUBHA Administration Cefazolin Sodium 0.5 gm/ 50 mls @ 100 mls/hr 08/10/16 10:00 08/13/16 09:37 Dextrose IVPB 100 mls/hr BID SUBHA Administration Nystatin 1 applic 08/08/16 22:00 08/13/16 09:38 Nystop Powder - TP 1 applic BID SUBHA Administration Pantoprazole Sodium 40 mg 08/12/16 10:00 08/13/16 09:37 Protonix Packets For Oral Suspension - NGT 40 mg DAILY SUBHA Administration Sodium Bicarbonate 1,300 mg 08/11/16 12:30 08/13/16 09:36 Sodium Bicarbonate - NGT 1,300 mg BID SUBHA Administration Ursodiol 300 mg 08/10/16 22:00 08/13/16 09:37 Actigal - PO 300 mg BID SUBHA Administration ASSESSMENT/PLAN: Patient is a 85 year old male with a significant past medical history of hypertension, CAD s/p stent placement, aortic stenosis, porcine valve replacement (takes both ASA 81mg and Plavix 75mg), 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 He was admitted on 08/06/2016 for abdominal pain, acute choledocholithiasis, acute transaminitis, jaundice and leukocytosis with shaking chills. ID: Septic Shock likely secondary to periumbilicus cellulitis vs. cholangitis Periumbilical cellulitis - chronic Assessment: Wound culture +staphylococcus coag, +blood cultures with ecoli Repeat blood cultures with no growth x 48 hours WBC trending down Now on Cefazolin as per ID Surgical consult for likely drainage of abscess once pt more stable Still intubated, off pressors GI: Acute Choledocholithiasis/abdominal pain/generalized jaundice/acute transaminitis Assessment/Plan: Cholangitis s/p ERCP with biliary stent placement on 08/07 Trend LFT's On Ursodiol : Chronic Kidney Disease - acute renal failure Renal cancer s/p right nephrectomy Assessment/Plan: Creatinine 7.2, baseline ~ 1.7 Dialysis as per renal Cardiology: Hypertension - chronic Assessment/Plan: hypotension improving, off pressors Elevated troponins - acute Assessment/Plan: Troponins continue to trend up, peaked at 7.4 Likely secondary demand ischemia and 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 Fluids: sodium bicarb drip Electrolytes: monitor bmp Nutrition: on tube feeds Prophylaxis: DVT: SCDs GI: Protonix Code Status: Requires inpatient hospitalization. DNR Visit type - Emergency Visit Emergency Visit: Yes ED Registration Date: 08/06/16 Care time: The patient presented to the Emergency Department on the above date and was hospitalized for further evaluation of their emergent condition. - New Patient This patient is new to me today: No - Critical Care Critical Care patient: Yes Total Critical Care Time (in minutes): 45 Critical Care Statement: The care of this patient involved high complexity decision making to prevent further life threatening deterioration of the patient 's condition and/or to evalute & treat vital organ system(s) failure or risk of failure. - Discharge Referral Referred to [facility] No
--- NOTE | 2016-08-13 14:18 | PN ---
Teaching Attending Note Name of Resident: Darryl Olmedo ATTENDING PHYSICIAN STATEMENT I saw and evaluated the patient. I reviewed the resident's note and discussed the case with the resident. I agree with the resident's findings and plan as documented. SUBJECTIVE: Patient seen and examined in the ICU. Remains intubated on AC mode of vent. Sedated. Off pressors. CXR: No acute changes. OBJECTIVE: Gen: intubated, sedated Heart: RRR Lung: decreased breath sounds at the bases Abd: soft, nontender Ext: no edema Intake & Output 08/10/16 08/11/16 08/12/16 08/13/16 23:59 23:59 23:59 23:59 Intake Total 3455.0 2848.7 1710 460 Output Total 932 474 0019 300 Balance 3265.0 2058.7 660 160 Weight 218 lb 14.704 oz 220 lb 3.2 oz 225 lb 224 lb 14.4 oz Last Vital Signs Temp Pulse Resp BP Pulse Ox 97.8 F 81 23 103/57 97 08/13/16 09:59 08/13/16 10:08 08/13/16 14:02 08/13/16 09:59 08/13/16 10:08 Active Medications Albumin Human (Albumin Human 25%) 12.5 gm IVPB Q30M SUBHA Stop: 08/13/16 15:31 Chlorhexidine Gluconate (Peridex -) 15 ml MM BID [facility] Last Admin: 08/13/16 09:37 Dose: 15 ml Chlorhexidine Gluconate (Hibiclens For Decolonization -) 1 applic TP HS [facility] Last Admin: 08/12/16 22:17 Dose: 1 applic Furosemide (Lasix Injection -) 100 mg IVPB BID@0600,1400 [facility] Last Admin: 08/13/16 05:09 Dose: 100 mg Cefazolin Sodium 0.5 gm/ (Dextrose) 50 mls @ 100 mls/hr IVPB BID [facility] Last Admin: 08/13/16 09:37 Dose: 100 mls/hr Nystatin (Nystop Powder -) 1 applic TP BID [facility] Last Admin: 08/13/16 09:38 Dose: 1 applic Pantoprazole Sodium (Protonix Packets For Oral Suspension -) 40 mg NGT DAILY [facility] Last Admin: 08/13/16 09:37 Dose: 40 mg Sodium Bicarbonate (Sodium Bicarbonate -) 1,300 mg NGT BID [facility] Last Admin: 08/13/16 09:36 Dose: 1,300 mg Ursodiol (Actigal -) 300 mg PO BID [facility] Last Admin: 08/13/16 09:37 Dose: 300 mg ASSESSMENT AND PLAN: Acute Cholangitis Gram Negative Bacteremia s/p ERCP/sphincteroplasty/stent placement Acute Hypoxic Respiratory Failure Septic Shock Acute on Chronic Renal Failure Lactic Acidosis CAD +Troponins likely Demand Ischemia s/p TAVR for severe Aortic Stenosis Thrombocytopenia Laboratory Results - last 24 hr 08/13/16 08/13/16 08/13/16 05:35 05:35 05:35 WBC 8.4 RBC 3.06 L Hgb 9.0 L Hct 26.6 L MCV 86.9 MCHC 33.9 RDW 16.3 H Plt Count 45 L MPV 11.5 H Neutrophils % 77.6 Lymphocytes % 8.6 D Monocytes % 9.6 Eosinophils % 3.9 Basophils % 0.3 INR PTT (Actin FS) 32.6 Fibrinogen Puncture Site ABG pH ABG pCO2 at Pt Temp ABG pO2 at Pt Temp ABG HCO3 ABG O2 Sat (Measured) ABG O2 Content ABG Base Excess Marvin Test O2 Delivery Device Oxygen Flow Rate Vent Mode Vent Rate Mechanical Rate PEEP Pressure Support Vent Sodium 134 L Potassium 4.6 Chloride 100 Carbon Dioxide 17 L Anion Gap 17 H BUN 94 H Creatinine 7.2 H Creat Clearance w eGFR 7.24 Random Glucose 91 Calcium 7.4 L Phosphorus 6.3 H Magnesium 2.2 Total Bilirubin 2.2 H D AST 45 H ALT 18 D Alkaline Phosphatase 548 H Total Protein 4.2 L Albumin 1.4 L 08/13/16 08/13/16 05:35 07:15 WBC RBC Hgb Hct MCV MCHC RDW Plt Count MPV Neutrophils % Lymphocytes % Monocytes % Eosinophils % Basophils % INR 1.07 PTT (Actin FS) Fibrinogen 463.0 D Puncture Site Right radial ABG pH 7.35 ABG pCO2 at Pt Temp 28.2 L ABG pO2 at Pt Temp 141.0 H D ABG HCO3 15.1 L ABG O2 Sat (Measured) 99.2 H ABG O2 Content 12.9 L ABG Base Excess -9.2 L Marvin Test Positive O2 Delivery Device Mec.vent Oxygen Flow Rate 40% Vent Mode A/c Vent Rate 14 Mechanical Rate Esprit PEEP 7.0 Pressure Support Vent 500 Sodium Potassium Chloride Carbon Dioxide Anion Gap BUN Creatinine Creat Clearance w eGFR Random Glucose Calcium Phosphorus Magnesium Total Bilirubin AST ALT Alkaline Phosphatase Total Protein Albumin - ABX per ID - IVF - Will be started on HD - taper FiO2 to keep SpO2 >90% - monitor platelets/coags/fibrinogen levels - monitor urine output, creatinine - Monitor off sedation to assess mental status - spontaneous breathing trials when mental status improved - DVT/GI prophylaxis - continue ICU monitoring Dr Ledesma critical care time spent in reviewing chart, evaluating patient and formulating plan 40 min
--- NOTE | 2016-08-13 14:19 | PROC ---
Central Line Insertion Indication: Other (HD) Risks and Benefits Explained: Yes Consent on Chart: Yes Central Line: Dialysis Cath, Dual Lumen Anesthesia: 1% Lidocaine Sterile Technique: Yes Ultrasound Guided Assistance: Yes Position: Left Internal Jugular Post Insertion: Yes: Bilateral Breath Sounds, Bilateral Chest Expansion, Chest X-Ray Ordered Sterile Dressing Applied: Yes
--- NOTE | 2016-08-13 15:24 | PN ---
Progress Note (short form) - Note Progress Note: lethargic opens eyes to voice off pressors Vital Signs Period Temp Pulse Resp BP Sys/Hinkle Pulse Ox Last 24 Hr 97.4 F-99.5 F 70-98 18-26 90-115/48-57 96-98 cor-rrr lungs decreased bs at bases abd soft, nt ext no edema CBC, BMP 08/13/16 05:35 08/13/16 05:35 Microbiology 08/10/16 19:20 Blood - Peripheral Venous Blood Culture - Preliminary NO GROWTH OBTAINED AFTER 48 HOURS, INCUBATION TO CONTINUE FOR 3 DAYS. 08/10/16 18:50 Blood - Peripheral Venous Blood Culture - Preliminary NO GROWTH OBTAINED AFTER 48 HOURS, INCUBATION TO CONTINUE FOR 3 DAYS. 08/06/16 18:30 Abdomen Gram Stain - Final 08/06/16 18:30 Abdomen Wound Culture - Final Staphylococcus Coagulase Neg Diphtheroid/Corynebacterium Streptococcus Viridans 08/07/16 10:42 Blood - Peripheral Venous Blood Culture - Final Escherichia Coli 08/07/16 10:40 Blood - Peripheral Venous Blood Culture - Final Escherichia Coli Current Medications Albumin Human (Albumin Human 25%) 12.5 gm IVPB Q30M [facility] Stop: 08/13/16 15:31 Chlorhexidine Gluconate (Peridex -) 15 ml MM BID [facility] Last Admin: 08/13/16 09:37 Dose: 15 ml Chlorhexidine Gluconate (Hibiclens For Decolonization -) 1 applic TP HS [facility] Last Admin: 08/12/16 22:17 Dose: 1 applic Furosemide (Lasix Injection -) 100 mg IVPB BID@0600,1400 [facility] Last Admin: 08/13/16 05:09 Dose: 100 mg Cefazolin Sodium 0.5 gm/ (Dextrose) 50 mls @ 100 mls/hr IVPB BID [facility] Last Admin: 08/13/16 09:37 Dose: 100 mls/hr Nystatin (Nystop Powder -) 1 applic TP BID [facility] Last Admin: 08/13/16 09:38 Dose: 1 applic Pantoprazole Sodium (Protonix Packets For Oral Suspension -) 40 mg NGT DAILY [facility] Last Admin: 08/13/16 09:37 Dose: 40 mg Sodium Bicarbonate (Sodium Bicarbonate -) 1,300 mg NGT BID [facility] Last Admin: 08/13/16 09:36 Dose: 1,300 mg Ursodiol (Actigal -) 300 mg PO BID [facility] Last Admin: 08/13/16 09:37 Dose: 300 mg imp/reccd ecoli bacteremia-day #6 antibiotics biliary sepsis/resp failure/criss (one kidney) s/p cbd stent hx TAVR +troponins CRISS continue cefazolin to start HD today
[2016-08-13] MEDS: ALBUMIN HUMAN 25% 12.5 GM/50 ML VIAL IVPB SCH ×4 (16:00→19:00)
[2016-08-13] MEDS ORDERED: PROPOFOL 100 ML IVPB SCH ×2 (16:45→17:45)
[2016-08-13] MEDS: PROPOFOL 100 ML IVPB SCH ×2 (16:50→17:33)
[2016-08-13] MEDS: CHLORHEXIDINE GLUCONATE 4% CLEANSER FOR DECOLONIZATION TP SCH (22:25)
--- NOTE | 2016-08-13 22:42 | PN ---
Progress Note (short form) - Note Progress Note: OAtient seen and examined No change in clinical status Last Vital Signs Temp Pulse Resp BP Pulse Ox 97.9 F 79 19 100/46 100 08/13/16 20:00 08/13/16 22:00 08/13/16 22:00 08/13/16 22:00 08/13/16 19:54 Cor: RSR, No murmurs, No gallops Lungs: Clear to P&A Abd: Soft, Normal bowel sounds, No organomegaly Ext:1+ edema Abnormal Lab Results 08/13/16 08/13/16 08/13/16 05:35 05:35 07:15 RBC 3.06 L Hgb 9.0 L Hct 26.6 L RDW 16.3 H Plt Count 45 L MPV 11.5 H ABG pCO2 at Pt Temp 28.2 L ABG pO2 at Pt Temp 141.0 H D ABG HCO3 15.1 L ABG O2 Sat (Measured) 99.2 H ABG O2 Content 12.9 L ABG Base Excess -9.2 L Sodium 134 L Carbon Dioxide 17 L Anion Gap 17 H BUN 94 H Creatinine 7.2 H Calcium 7.4 L Phosphorus 6.3 H Total Bilirubin 2.2 H D AST 45 H Alkaline Phosphatase 548 H Total Protein 4.2 L Albumin 1.4 L Active Medications Chlorhexidine Gluconate (Peridex -) 15 ml MM BID [facility] Last Admin: 08/13/16 22:25 Dose: 15 ml Chlorhexidine Gluconate (Hibiclens For Decolonization -) 1 applic TP HS [facility] Last Admin: 08/13/16 22:25 Dose: 1 applic Cefazolin Sodium 0.5 gm/ (Dextrose) 50 mls @ 100 mls/hr IVPB BID [facility] Last Admin: 08/13/16 22:24 Dose: 100 mls/hr Propofol (Diprivan -) 100 mls @ 3.06 mls/hr IVPB TITR [facility]; 5 MCG/KG/MIN PRN Reason: Protocol Last Titration: 08/13/16 17:59 Dose: 2.5 mcg/kg/min Nystatin (Nystop Powder -) 1 applic TP BID [facility] Last Admin: 08/13/16 22:25 Dose: 1 applic Ranitidine HCl (Zantac Oral Solution -) 150 mg PO DAILY [facility] Sodium Bicarbonate (Sodium Bicarbonate -) 1,300 mg NGT BID [facility] Last Admin: 08/13/16 22:24 Dose: 1,300 mg Ursodiol (Actigal -) 300 mg PO BID [facility] Last Admin: 08/13/16 22:24 Dose: 300 mg A/P This is an 85 y/o male with a past medical history significant for renal CA S/P right nephrectomy, HTN, CAD S/P PCI/stent (1995) and S/P TAVR (at [facility] in 2015 - followed by Dr. Aubrey Vieyra) presents with an abnormal MRI of abdomen showing prominent head of pancrease, large distal CBD stone and dilated CBD. Pt underwent an ERCP with balloon sphincterotomy and stent placement with post-procedure failed extubation necessitating reintubation and transfer to ICU for further medical care. biliary sepsis/CRISS/resp. failure thrombocytopenia---presumable due to bacteremia/cholangitits/sepsis suspect ongoing cholangitis timing not c/w hit borderline hit ab most likely false + f/u Serotonin release assy monitor coags/CBC DVT prophy when platelets above 50,000
[2016-08-14 06:01] LABS: BASOPHIL 0.5 % (0-2.0); EOSINOPHIL 8.2 % (0-4.5); MCH 29.3 pg (25.7-33.7); MCHC 33.9 g/dl (32.0-35.9); MEAN CELL VOLUME 86.6 fl (80-96); MEAN PLT VOLUME 11.4 fl (7.5-11.1); NEUTROPHILS 75.9 % (42.8-82.8); PLATELET COUNT 40 K/MM3 (134-434); RDW 15.9 % (11.9-15.9); WHITE BLOOD COUNT 8.1 K/mm3 (4.0-10.0)
[2016-08-14 06:48] LABS: ALBUMIN 1.9 g/dl (3.4-5.0); BILIRUBIN,DIRECT 1.4 mg/dL (0.0-0.2); CALCIUM 7.6 mg/dL (8.5-10.1); COCKROFT - GAULT 12.88; CREATININE 5.8 mg/dL (0.7-1.3)
[2016-08-14 06:50] LABS: BILIRUBIN,TOTAL 1.9 mg/dL (0.2-1.0); TOT PROT 4.3 g/dl (6.4-8.2)
[2016-08-14 06:56] LABS: PHOSPHOROUS 4.4 mg/dL (2.5-4.9)
[2016-08-14 07:39] LABS: ALLENS TEST POSITIVE; ART PUNCT SITE RIGHT RADIAL; ARTERIAL BLD GAS O2 SATURATION 99.8 % (90-98.9); ARTERIAL BLOOD GAS BASE EXCESS -2.5 meq/l (-2-2); ARTERIAL BLOOD GAS pH 7.43 (7.35-7.45); LPM/O2% 40; MECH. VENT. YES; PT. ON O2? YES; TYPE OF O2 VENT; VENT RATE 14; VT/PRESS 500
--- NOTE | 2016-08-14 07:54 | PN ---
Physical Exam: SUBJECTIVE: Patient seen and examined extubated today, OG tube removed on venti mask 8L. tolerating well. OBJECTIVE: Vital Signs Period Temp Pulse Resp BP Sys/Hinkle Pulse Ox Last 24 Hr 97.8 F-99.5 F 67-82 16-23 96-125/42-57 97-100 EYES: sluggish pupilary response with PERRLA and EOMI, conjunctiva clear. No ptosis. anicteric sclera, ENT: oropharynx with endotracheal tube and OG tube, moist, mucous membranes. lateral line of demuted skin on top lip from ET strap LUNGS: Breath sounds equal, clear at apices, diminished breath sounds at bases HEART: Regular rate and rhythm, S1, S2 without murmur, rub or gallop. ABDOMEN: Soft, nondistended, multiple diffuse palpable soft mobile nodularities , normoactive bowel sounds, periumbilical erythema with demuted skin laterally along skin fold and within umbilicus, scant serous discharge in umbilicus, covered with nystatin power EXTREMITIES: 2+ pulses in b/l radial and DP, warm, 2+ edema in b/l upper extremities well-perfused, trace edema in b/l lower extremities upto knees. scd' s in place. Neuro: facial symmetry, 2/5 strength at shoulder extension and elbow extension, 3/5 hand speech pathologist assistant b/l. 4/5 dorsi/plantaer flexion, 3/5 hip extension b/l. SKIN: Warm, improved jaundice Stone in place. left IJ site CDI Laboratory Results - last 24 hr 08/13/16 08/14/16 08/14/16 05:35 05:30 05:30 WBC RBC Hgb Hct MCV MCHC RDW Plt Count MPV Neutrophils % Lymphocytes % Monocytes % Eosinophils % Basophils % PTT (Actin FS) 32.8 Fibrinogen 463.0 D Puncture Site ABG pH ABG pCO2 at Pt Temp ABG pO2 at Pt Temp ABG HCO3 ABG O2 Sat (Measured) ABG O2 Content ABG Base Excess Marvin Test O2 Delivery Device Oxygen Flow Rate Vent Mode Vent Rate Mechanical Rate PEEP Pressure Support Vent Sodium Potassium Chloride Carbon Dioxide Anion Gap BUN Creatinine Creat Clearance w eGFR Random Glucose Calcium Phosphorus 4.4 D Magnesium 2.0 Total Bilirubin Direct Bilirubin AST ALT Alkaline Phosphatase Total Protein Albumin 08/14/16 08/14/16 08/14/16 05:30 05:30 07:15 WBC 8.1 RBC 2.58 L Hgb 7.6 L D Hct 22.4 L D MCV 86.6 MCHC 33.9 RDW 15.9 Plt Count 40 L MPV 11.4 H Neutrophils % 75.9 Lymphocytes % 7.3 L Monocytes % 8.1 Eosinophils % 8.2 H D Basophils % 0.5 PTT (Actin FS) Fibrinogen Puncture Site Right radial ABG pH 7.43 ABG pCO2 at Pt Temp 32.6 L ABG pO2 at Pt Temp 169.0 H* D ABG HCO3 21.0 L ABG O2 Sat (Measured) 99.8 H* ABG O2 Content 10.7 L ABG Base Excess -2.5 L Marvin Test Positive O2 Delivery Device Vent Oxygen Flow Rate 40 Vent Mode A/c Vent Rate 14 Mechanical Rate Yes PEEP 5.0 Pressure Support Vent 500 Sodium 134 L Potassium 3.8 Chloride 100 Carbon Dioxide 23 D Anion Gap 11 BUN 82 H Creatinine 5.8 H Creat Clearance w eGFR 9.30 Random Glucose 95 Calcium 7.6 L Phosphorus Magnesium Total Bilirubin 1.9 H Direct Bilirubin 1.4 H D AST 45 H ALT 15 Alkaline Phosphatase 452 H Total Protein 4.3 L Albumin 1.9 L D Active Medications Generic Name Dose Route Start Last Admin Trade Name Freq PRN Reason Stop Dose Admin Chlorhexidine Gluconate 15 ml 08/10/16 22:00 08/13/16 22:25 Peridex - MM 15 ml BID [facility] Administration Chlorhexidine Gluconate 1 applic 08/10/16 22:00 08/13/16 22:25 Hibiclens For Decolonization - TP 1 applic HS [facility] Administration Cefazolin Sodium 0.5 gm/ 50 mls @ 100 mls/hr 08/10/16 10:00 08/13/16 22:24 Dextrose IVPB 100 mls/hr BID [facility] Administration Propofol 100 mls @ 3.06 mls/hr 08/13/16 17:45 08/13/16 17:59 Diprivan - IVPB 2.5 mcg/kg/min TITR [facility] Titration Protocol 5 MCG/KG/MIN Nystatin 1 applic 08/08/16 22:00 08/13/16 22:25 Nystop Powder - TP 1 applic BID [facility] Administration Ranitidine HCl 150 mg 08/14/16 10:00 Zantac Oral Solution - PO DAILY [facility] Sodium Bicarbonate 1,300 mg 08/11/16 12:30 08/13/16 22:24 Sodium Bicarbonate - NGT 1,300 mg BID [facility] Administration Ursodiol 300 mg 08/10/16 22:00 08/13/16 22:24 Actigal - PO 300 mg BID [facility] Administration ASSESSMENT/PLAN: 85 yr old man with HTN, aortic stenosis, CAD s/p stents, r-nephroctomy(renal ca) , pancreatic head density found to have choleluithaisis with obstructing CBD, s/ p ERCP with stent placement(unable to undergo sphincterectomy due to anticoagulation) complicated by septic shock requiring ICU admission. - speech and swallow consult for further assesment, on my bedside ICU assessment he held the water in his mouth but did not swallow, possibly needs more time to recover from extubation, will start with clear liquids. Renal oliguric CRISS/ATN due to sepsis induced hypoperfusion, on CKD stage 3 - dialyzed yesterday with improvement of bun/Cr, to be re-assessed tomorrow for dialysis needs. - monitor I&O, stnoe in place, urine output 1300cc/24hr, - Left IJ dialsyis cather placed 08/13 - renal dosing of medications consult: Dr. Medina Infectious Disease Septic shock with multi-organ failure likely secondary to cholangitis and e.coli bactermia(likely gallbladder as primary source) - improving - ofirmev 1gm IVpb q6hr for fever Abx tx: Cefazolin (renally dosed) start 08/10 - day 5 - topical antifungal cream to periumbical area Fluids: avoid fluid overload - sodium bicarb 1300 NGT BID Consult: Dr. Boggs Cardiovascular Normotensive - maintain Goal: MAP>65, CVP 8-12 consult: dr. ayala Pulmonary acute hypoxic respiratory failure - resolved, extubated today on venti mask, sat 100% Gastrointestinal Cholangitis s/p ERCP with biliary stent placement actigal to soften gall stones trend LFT's, trending down Abdominal CT scan without abscess or free abdominal air, no SBO. stranding of mesentery in lower abdomen suggestive of edema, diverticulosis coli with mild stranding in jxn of the distal descending and poximal sigmoid colon, small amount of free fluid in pelvis prophylaxis with zantac daily consult: Dr. Thompson Hematological normocytic anemia - chronic, trend h/h, monitor for bleeding. plan to transfuse 1 unit of prbc's during dialysis if dialysing tomorrow. leucocytosis resolved thrombocytopenia - likely due to sepsis, r./o DIC; trend fibrinogen and fibrin degradation products: HIT AB POSITIVE, serotonin realeasing assay for confirmation pending. continue heparin for now. maintain platelet >20,000 Dermatological periumbical discharge - topical antifungal Dr Weems consulted for surgical eval; patient is high risk for operative intervention, recommend IR intervention for percutaneous drainage - no collection noted on CT scan. Dr. Carney consulted Neurological improved mentation, opening eyes, makes eye contact, follows commands, has a hoarse throat with quiet speech post-intubation, improved throughout the day. DVT: heparin 5000 units SQ BID Diet: clear liquid diet Visit type - Emergency Visit Emergency Visit: No - New Patient This patient is new to me today: No - Critical Care Critical Care patient: Yes Total Critical Care Time (in minutes): 40 Critical Care Statement: The care of this patient involved high complexity decision making to prevent further life threatening deterioration of the patient 's condition and/or to evalute & treat vital organ system(s) failure or risk of failure.
[2016-08-14] MEDS ORDERED: PT OWN MED DRAWER 7, Y5N ONE ×2 (08:02→09:12)
[2016-08-14] MEDS: CEFAZOLIN 0.5 GM in DEXTROSE 5%-WATER - 50 ML IVPB SCH ×2 (09:05→21:38)
[2016-08-14] MEDS: SODIUM BICARBONATE 650 MG TABLET NGT SCH ×2 (09:06→21:38)
[2016-08-14] MEDS: CHLORHEXIDINE GLUCONATE 0.12% 15ML CUP MM SCH ×2 (09:06→21:39)
[2016-08-14] MEDS: NYSTATIN POWDER 100,000 UNITS/GM - 15 GM TOPICAL POWDER TP SCH ×2 (09:06→21:39)
--- NOTE | 2016-08-14 09:06 | PN ---
GI Progress Note Subjective: No acute events Remains off pressors Plan for possible extubation today No melena - Objective Vital Signs: Vital Signs Temperature 98.7 F 08/14/16 08:00 Pulse Rate 79 08/14/16 08:00 Respiratory Rate 19 08/14/16 08:00 Blood Pressure 124/57 08/14/16 08:00 O2 Sat by Pulse Oximetry (%) 100 08/14/16 08:00 Constitutional: Calm Eyes: Yes: Sclera Icterus Cardiovascular: Yes: Regular Rate and Rhythm Respiratory: Yes: Diminished (at bases b/l) Gastrointestinal Inspection: Yes: Distention ...Auscultate: Yes: Normoactive Bowel Sounds ...Palpate: No: Tenderness ...Percussion: No: Tympanitic Edema: Yes Edema: LLE: Trace, RLE: Trace Neurological: Yes: Other (Remains intubated) Labs: CBC, BMP 08/14/16 05:30 08/14/16 05:30 INR, PTT INR 1.07 (0.82-1.09) 08/13/16 05:35 Fibrinogen 463.0 mg/dL (238-498) D 08/13/16 05:35 Problem List - Problems (1) Choledocholithiasis Assessment/Plan: Bilirubin continues to trend down Normalized WBC Continue to monitor for now Monitor H/H and for signs of over GI bleeding GI prophylaxis Code(s): K80.50 - CALCULUS OF BILE DUCT W/O CHOLANGITIS OR CHOLECYST W/O OBST
[2016-08-14] MEDS: URSODIOL 300 MG CAPSULE PO SCH ×2 (09:12→21:38)
[2016-08-14] MEDS: RANITIDINE HCL 150 MG/10 ML UNIT-DOSE CUP PO SCH (09:12)
--- NOTE | 2016-08-14 09:16 | PN ---
Progress Note (short form) - Note Progress Note: s/p HD yesterday, more alert opens eyes to voice Vital Signs Period Temp Pulse Resp BP Sys/Hinkle Pulse Ox Last 24 Hr 97.8 F-98.7 F 67-82 16-23 96-125/42-57 97-100 cor-rrr lungs decreased bs at bases abd soft,nt ext trace edema CBC, BMP 08/14/16 05:30 08/14/16 05:30 Microbiology 08/10/16 19:20 Blood - Peripheral Venous Blood Culture - Preliminary NO GROWTH OBTAINED AFTER 72 HOURS, INCUBATION TO CONTINUE FOR 2 DAYS. 08/10/16 18:50 Blood - Peripheral Venous Blood Culture - Preliminary NO GROWTH OBTAINED AFTER 72 HOURS, INCUBATION TO CONTINUE FOR 2 DAYS. 08/06/16 18:30 Abdomen Gram Stain - Final 08/06/16 18:30 Abdomen Wound Culture - Final Staphylococcus Coagulase Neg Diphtheroid/Corynebacterium Streptococcus Viridans 08/07/16 10:42 Blood - Peripheral Venous Blood Culture - Final Escherichia Coli 08/07/16 10:40 Blood - Peripheral Venous Blood Culture - Final Escherichia Coli Current Medications Chlorhexidine Gluconate (Peridex -) 15 ml MM BID [facility] Last Admin: 08/14/16 09:06 Dose: 15 ml Chlorhexidine Gluconate (Hibiclens For Decolonization -) 1 applic TP HS [facility] Last Admin: 08/13/16 22:25 Dose: 1 applic Cefazolin Sodium 0.5 gm/ (Dextrose) 50 mls @ 100 mls/hr IVPB BID [facility] Last Admin: 08/14/16 09:05 Dose: 100 mls/hr Propofol (Diprivan -) 100 mls @ 3.06 mls/hr IVPB TITR [facility]; 5 MCG/KG/MIN PRN Reason: Protocol Last Titration: 08/13/16 17:59 Dose: 2.5 mcg/kg/min Nystatin (Nystop Powder -) 1 applic TP BID [facility] Last Admin: 08/14/16 09:06 Dose: 1 applic Ranitidine HCl (Zantac Oral Solution -) 150 mg PO DAILY [facility] Last Admin: 08/14/16 09:12 Dose: 150 mg Sodium Bicarbonate (Sodium Bicarbonate -) 1,300 mg NGT BID [facility] Last Admin: 08/14/16 09:06 Dose: 1,300 mg Ursodiol (Actigal -) 300 mg PO BID [facility] Last Admin: 08/14/16 09:12 Dose: 300 mg imp/reccd ecoli bacteremia-day #7 antibiotics biliary sepsis/resp failure/criss (one kidney) s/p cbd stent hx TAVR +troponins CRISS continue cefazolin now on dialysis
--- NOTE | 2016-08-14 12:12 | PN ---
Teaching Attending Note Name of Resident: Darryl Olmedo ATTENDING PHYSICIAN STATEMENT I saw and evaluated the patient. I reviewed the resident's note and discussed the case with the resident. I agree with the resident's findings and plan as documented. SUBJECTIVE: Patient seen and examined in the ICU. Remains intubated on CPAP mode of vent. Awake and able to follow commands. RSBI 70. No pressors. CXR: No acute changes. OBJECTIVE: Intake & Output 08/11/16 08/12/16 08/13/16 08/14/16 23:59 23:59 23:59 23:59 Intake Total 2848.7 1710 830 760 Output Total 790 1050 1300 350 Balance 2058.7 660 -470 410 Weight 220 lb 3.2 oz 225 lb 224 lb 14.4 oz 223 lb 14.4 oz Last Vital Signs Temp Pulse Resp BP Pulse Ox 98.5 F 74 17 93/52 98 08/14/16 10:00 08/14/16 10:00 08/14/16 10:00 08/14/16 10:00 08/14/16 09:57 Active Medications Chlorhexidine Gluconate (Peridex -) 15 ml MM BID [facility] Last Admin: 08/14/16 09:06 Dose: 15 ml Chlorhexidine Gluconate (Hibiclens For Decolonization -) 1 applic TP HS [facility] Last Admin: 08/13/16 22:25 Dose: 1 applic Cefazolin Sodium 0.5 gm/ (Dextrose) 50 mls @ 100 mls/hr IVPB BID [facility] Last Admin: 08/14/16 09:05 Dose: 100 mls/hr Propofol (Diprivan -) 100 mls @ 3.06 mls/hr IVPB TITR [facility]; 5 MCG/KG/MIN PRN Reason: Protocol Last Titration: 08/13/16 17:59 Dose: 2.5 mcg/kg/min Nystatin (Nystop Powder -) 1 applic TP BID [facility] Last Admin: 08/14/16 09:06 Dose: 1 applic Ranitidine HCl (Zantac Oral Solution -) 150 mg PO DAILY [facility] Last Admin: 08/14/16 09:12 Dose: 150 mg Sodium Bicarbonate (Sodium Bicarbonate -) 1,300 mg NGT BID [facility] Last Admin: 08/14/16 09:06 Dose: 1,300 mg Ursodiol (Actigal -) 300 mg PO BID [facility] Last Admin: 08/14/16 09:12 Dose: 300 mg Gen: intubated, awake and able to follow commands Heart: RRR Lung: decreased breath sounds at the bases Abd: soft, nontender Ext: no edema Laboratory Results - last 24 hr 08/14/16 08/14/16 08/14/16 05:30 05:30 05:30 WBC RBC Hgb Hct MCV MCHC RDW Plt Count MPV Neutrophils % Lymphocytes % Monocytes % Eosinophils % Basophils % PTT (Actin FS) 32.8 Puncture Site ABG pH ABG pCO2 at Pt Temp ABG pO2 at Pt Temp ABG HCO3 ABG O2 Sat (Measured) ABG O2 Content ABG Base Excess Marvin Test O2 Delivery Device Oxygen Flow Rate Vent Mode Vent Rate Mechanical Rate PEEP Pressure Support Vent Sodium 134 L Potassium 3.8 Chloride 100 Carbon Dioxide 23 D Anion Gap 11 BUN 82 H Creatinine 5.8 H Creat Clearance w eGFR 9.30 Random Glucose 95 Calcium 7.6 L Phosphorus 4.4 D Magnesium 2.0 Total Bilirubin 1.9 H Direct Bilirubin 1.4 H D AST 45 H ALT 15 Alkaline Phosphatase 452 H Total Protein 4.3 L Albumin 1.9 L D 08/14/16 08/14/16 05:30 07:15 WBC 8.1 RBC 2.58 L Hgb 7.6 L D Hct 22.4 L D MCV 86.6 MCHC 33.9 RDW 15.9 Plt Count 40 L MPV 11.4 H Neutrophils % 75.9 Lymphocytes % 7.3 L Monocytes % 8.1 Eosinophils % 8.2 H D Basophils % 0.5 PTT (Actin FS) Puncture Site Right radial ABG pH 7.43 ABG pCO2 at Pt Temp 32.6 L ABG pO2 at Pt Temp 169.0 H* D ABG HCO3 21.0 L ABG O2 Sat (Measured) 99.8 H* ABG O2 Content 10.7 L ABG Base Excess -2.5 L Marvin Test Positive O2 Delivery Device Vent Oxygen Flow Rate 40 Vent Mode A/c Vent Rate 14 Mechanical Rate Yes PEEP 5.0 Pressure Support Vent 500 Sodium Potassium Chloride Carbon Dioxide Anion Gap BUN Creatinine Creat Clearance w eGFR Random Glucose Calcium Phosphorus Magnesium Total Bilirubin Direct Bilirubin AST ALT Alkaline Phosphatase Total Protein Albumin ASSESSMENT AND PLAN: Acute Cholangitis Gram Negative Bacteremia s/p ERCP/sphincteroplasty/stent placement Acute Hypoxic Respiratory Failure Septic Shock Acute on Chronic Renal Failure Lactic Acidosis CAD +Troponins likely Demand Ischemia s/p TAVR for severe Aortic Stenosis Thrombocytopenia - ABX per ID - HD per Renal - SBTs as tolerated with hopes of extubation - monitor platelets/coags - monitor urine output, creatinine - DVT/GI prophylaxis - Noted drop in H&H. No obvious site of bleeding/blood loss. Currently stable. Normal transfusion thresholds. - continue ICU monitoring Dr Ledesma critical care time spent in reviewing chart, evaluating patient and formulating plan 40 min
--- NOTE | 2016-08-14 13:44 | PN ---
Progress Note, Physician Chief Complaint: Events noted Remains in ICU on mechanical ventilation - await extubation History of Present Illness: Patient was seen and examined in ICU. Intubated. Chart was reviewed Await weaning off vent and post HD - Current Medication List Current Medications: Active Medications Chlorhexidine Gluconate (Peridex -) 15 ml MM BID [facility] Last Admin: 08/14/16 09:06 Dose: 15 ml Chlorhexidine Gluconate (Hibiclens For Decolonization -) 1 applic TP HS [facility] Last Admin: 08/13/16 22:25 Dose: 1 applic Cefazolin Sodium 0.5 gm/ (Dextrose) 50 mls @ 100 mls/hr IVPB BID [facility] Last Admin: 08/14/16 09:05 Dose: 100 mls/hr Nystatin (Nystop Powder -) 1 applic TP BID [facility] Last Admin: 08/14/16 09:06 Dose: 1 applic Ranitidine HCl (Zantac Oral Solution -) 150 mg PO DAILY [facility] Last Admin: 08/14/16 09:12 Dose: 150 mg Sodium Bicarbonate (Sodium Bicarbonate -) 1,300 mg NGT BID [facility] Last Admin: 08/14/16 09:06 Dose: 1,300 mg Ursodiol (Actigal -) 300 mg PO BID [facility] Last Admin: 08/14/16 09:12 Dose: 300 mg - Objective Vital Signs: Vital Signs Temperature 98.5 F 08/14/16 10:00 Pulse Rate 86 08/14/16 12:00 Respiratory Rate 25 H 08/14/16 12:00 Blood Pressure 106/50 08/14/16 12:00 O2 Sat by Pulse Oximetry (%) 98 08/14/16 09:57 Cardiovascular: Yes: Regular Rate and Rhythm, Murmur (Soft SM), S1, S2 Respiratory: Yes: Diminished, Mechanically Ventilated Gastrointestinal: Yes: Normal Bowel Sounds, Soft. No: Tenderness Edema: Yes Edema: LLE: 1+, RLE: 1+ Labs: CBC, BMP 08/14/16 05:30 08/14/16 05:30 INR, PTT INR 1.07 (0.82-1.09) 08/13/16 05:35 Fibrinogen 463.0 mg/dL (238-498) D 08/13/16 05:35 Problem List - Problems (1) Cellulitis, umbilical Code(s): L03.316 - CELLULITIS OF UMBILICUS (2) Choledocholithiasis Code(s): K80.50 - CALCULUS OF BILE DUCT W/O CHOLANGITIS OR CHOLECYST W/O OBST (3) Hypertension Code(s): I10 - ESSENTIAL (PRIMARY) HYPERTENSION Qualifiers: Hypertension type: essential hypertension Qualified Code(s): I10 - Essential (primary) hypertension (4) CAD (coronary artery disease) Code(s): I25.10 - ATHSCL HEART DISEASE OF [place] CORONARY ARTERY W/O ANG PCTRS Qualifiers: Coronary Disease-Associated Artery/Lesion type: unspecified vessel or lesion type [place] vs. transplanted heart: hoh heart Associated angina: without angina Qualified Code(s): I25.10 - Atherosclerotic heart disease of [place] coronary artery without angina pectoris (5) History of percutaneous coronary intervention Code(s): Z98.890 - OTHER SPECIFIED POSTPROCEDURAL STATES (6) Renal cancer Code(s): C64.9 - MALIGNANT NEOPLASM OF UNSP KIDNEY, EXCEPT RENAL PELVIS Qualifiers: Laterality: right Qualified Code(s): C64.1 - Malignant neoplasm of right kidney, except renal pelvis Assessment/Plan 1. Acute hypoxemic respiratory failure on mechanical ventilation 2. Biliary septic shock (E. coli), acute cholangitis post ERCP, balloon sphincteroplasty and stent placement with leukocytosis and lactic acidosis 3. Post TAVR for severe 4. CAD, S/P PCI/stent with demand ischemic injury 5. Severe biventricular dysfunction referable to sepsis 6. H/O Hypertension, but hypotensive requiring pressors - now taken off 7. Renal CA S/P right nephrectomy 8. Anuric acute on CKD referable to septic shock and ATN - currently on HD 9. Thrombocytopenia due to sepsis PLAN: 1. Continue vent management - wean off vent 2. Monitor renal function - HD as per Renal 3. Antibiotics coverage 4. DVT and GI prophylaxis Further plans are to follow Juan Hays MD
[2016-08-14] MEDS ORDERED: ALBUTEROL SO4 2.5/IPRATROPIUM 0.5 INH SOL 3 ML VIAL.NEB. NEB ONE (14:30)
[2016-08-14] MEDS ORDERED: ALBUTEROL SO4 2.5/IPRATROPIUM 0.5 INH SOL 3 ML VIAL.NEB. NEB PRN (14:30)
--- NOTE | 2016-08-14 14:59 | PN ---
Physical Exam: SUBJECTIVE: Patient seen and examined in the ICU. Extubated, appears comfortable. OBJECTIVE: Now extubated, off pressors Wheezing on anterior lung vigil Neb treatments ordered Swallow evaluation ordered Vital Signs Period Temp Pulse Resp BP Sys/Hinkle Pulse Ox Last 24 Hr 97.9 F-98.7 F 67-86 14-25 93-125/42-57 98-100 GENERAL: Intubated/lethargic/wrist restraints to protect airway HEAD: Normal with no signs of trauma. NECK: Normal range of motion, supple without lymphadenopathy, JVD, or masses. LUNGS: expiratory wheezing on bilateral anterior lobes HEART: Regular rate and rhythm ABDOMEN: +erythema, redness to periumbilical region. UPPER EXTREMITIES: Non pitting edema of bilateral hands NEUROLOGICAL: lethargic, intubated, minimally responsive SKIN: generalized jaundice, periumbilicus drainage/abscess/no odor Laboratory Results - last 24 hr 08/13/16 08/14/16 08/14/16 16:56 05:30 05:30 WBC RBC Hgb Hct MCV MCHC RDW Plt Count MPV Neutrophils % Lymphocytes % Monocytes % Eosinophils % Basophils % PTT (Actin FS) 32.8 Puncture Site ABG pH ABG pCO2 at Pt Temp ABG pO2 at Pt Temp ABG HCO3 ABG O2 Sat (Measured) ABG O2 Content ABG Base Excess Marvin Test O2 Delivery Device Oxygen Flow Rate Vent Mode Vent Rate Mechanical Rate PEEP Pressure Support Vent Sodium Potassium Chloride Carbon Dioxide Anion Gap BUN Creatinine Creat Clearance w eGFR Random Glucose Calcium Phosphorus 4.4 D Magnesium 2.0 Total Bilirubin Direct Bilirubin AST ALT Alkaline Phosphatase Total Protein Albumin Hepatitis C Antibody Cancelled 08/14/16 08/14/16 08/14/16 05:30 05:30 07:15 WBC 8.1 RBC 2.58 L Hgb 7.6 L D Hct 22.4 L D MCV 86.6 MCHC 33.9 RDW 15.9 Plt Count 40 L MPV 11.4 H Neutrophils % 75.9 Lymphocytes % 7.3 L Monocytes % 8.1 Eosinophils % 8.2 H D Basophils % 0.5 PTT (Actin FS) Puncture Site Right radial ABG pH 7.43 ABG pCO2 at Pt Temp 32.6 L ABG pO2 at Pt Temp 169.0 H* D ABG HCO3 21.0 L ABG O2 Sat (Measured) 99.8 H* ABG O2 Content 10.7 L ABG Base Excess -2.5 L Marvin Test Positive O2 Delivery Device Vent Oxygen Flow Rate 40 Vent Mode A/c Vent Rate 14 Mechanical Rate Yes PEEP 5.0 Pressure Support Vent 500 Sodium 134 L Potassium 3.8 Chloride 100 Carbon Dioxide 23 D Anion Gap 11 BUN 82 H Creatinine 5.8 H Creat Clearance w eGFR 9.30 Random Glucose 95 Calcium 7.6 L Phosphorus Magnesium Total Bilirubin 1.9 H Direct Bilirubin 1.4 H D AST 45 H ALT 15 Alkaline Phosphatase 452 H Total Protein 4.3 L Albumin 1.9 L D Hepatitis C Antibody Active Medications Generic Name Dose Route Start Last Admin Trade Name Freq PRN Reason Stop Dose Admin Albuterol/Ipratropium 1 amp 08/14/16 14:30 Duoneb - NEB Q6H PRN SHORTNESS OF BREATH Chlorhexidine Gluconate 15 ml 08/10/16 22:00 08/14/16 09:06 Peridex - MM 15 ml BID SUBHA Administration Chlorhexidine Gluconate 1 applic 08/10/16 22:00 08/13/16 22:25 Hibiclens For Decolonization - TP 1 applic HS SUBHA Administration Cefazolin Sodium 0.5 gm/ 50 mls @ 100 mls/hr 08/10/16 10:00 08/14/16 09:05 Dextrose IVPB 100 mls/hr BID SUBHA Administration Nystatin 1 applic 08/08/16 22:00 08/14/16 09:06 Nystop Powder - TP 1 applic BID SUBHA Administration Ranitidine HCl 150 mg 08/14/16 10:00 08/14/16 09:12 Zantac Oral Solution - PO 150 mg DAILY SUBHA Administration Sodium Bicarbonate 1,300 mg 08/11/16 12:30 08/14/16 09:06 Sodium Bicarbonate - NGT 1,300 mg BID SUBHA Administration Ursodiol 300 mg 08/10/16 22:00 08/14/16 09:12 Actigal - PO 300 mg BID SUBHA Administration ASSESSMENT/PLAN: Patient is a 85 year old male with a significant past medical history of hypertension, CAD s/p stent placement, aortic stenosis, porcine valve replacement (takes both ASA 81mg and Plavix 75mg), 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 He was admitted on 08/06/2016 for abdominal pain, acute choledocholithiasis, acute transaminitis, jaundice and leukocytosis with shaking chills. 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 Wound culture +staphylococcus coag, +blood cultures with ecoli Repeat blood cultures with no growth x 48 hours WBC trending down, Now on Cefazolin since 08/10 Surgical consult for likely drainage of abscess once pt more stable GI: Acute Choledocholithiasis/abdominal pain/generalized jaundice/acute transaminitis Assessment/Plan: Cholangitis s/p ERCP with biliary stent placement on 08/07 Trend LFT's On Ursodiol : Chronic Kidney Disease - acute renal failure/has solitary kidney due to renal cancer with s/p right nephrectomy Assessment/Plan: Received dialysis yesterday Renal following Cardiology: Hypertension - chronic Assessment/Plan: hypotension improving, monitor off pressors Elevated troponins - acute Assessment/Plan: Troponins continue to trend up, peaked at 7.4 Likely secondary demand 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 Fluids: sodium bicarb drip Electrolytes: monitor bmp Nutrition: swallow evaluation ordered Prophylaxis: DVT: SCDs GI: Protonix Code Status: Requires inpatient hospitalization. DNR only Visit type - Emergency Visit Emergency Visit: Yes ED Registration Date: 08/06/16 Care time: The patient presented to the Emergency Department on the above date and was hospitalized for further evaluation of their emergent condition. - New Patient This patient is new to me today: No - Critical Care Critical Care patient: Yes Total Critical Care Time (in minutes): 45 Critical Care Statement: The care of this patient involved high complexity decision making to prevent further life threatening deterioration of the patient 's condition and/or to evalute & treat vital organ system(s) failure or risk of failure.
--- NOTE | 2016-08-14 15:24 | PN ---
Progress Note, Physician History of Present Illness: Pt seen and examined at bedside. He tolerated HD last night. He is now extubated. - Current Medication List Current Medications: Active Medications Albuterol/Ipratropium (Duoneb -) 1 amp NEB Q6H PRN PRN Reason: SHORTNESS OF BREATH Chlorhexidine Gluconate (Peridex -) 15 ml MM BID [facility] Last Admin: 08/14/16 09:06 Dose: 15 ml Chlorhexidine Gluconate (Hibiclens For Decolonization -) 1 applic TP HS [facility] Last Admin: 08/13/16 22:25 Dose: 1 applic Cefazolin Sodium 0.5 gm/ (Dextrose) 50 mls @ 100 mls/hr IVPB BID [facility] Last Admin: 08/14/16 09:05 Dose: 100 mls/hr Nystatin (Nystop Powder -) 1 applic TP BID [facility] Last Admin: 08/14/16 09:06 Dose: 1 applic Ranitidine HCl (Zantac Oral Solution -) 150 mg PO DAILY [facility] Last Admin: 08/14/16 09:12 Dose: 150 mg Sodium Bicarbonate (Sodium Bicarbonate -) 1,300 mg NGT BID [facility] Last Admin: 08/14/16 09:06 Dose: 1,300 mg Ursodiol (Actigal -) 300 mg PO BID [facility] Last Admin: 08/14/16 09:12 Dose: 300 mg - Objective Vital Signs: Vital Signs Temperature 98.5 F 08/14/16 14:00 Pulse Rate 86 08/14/16 14:00 Respiratory Rate 22 08/14/16 14:00 Blood Pressure 98/46 08/14/16 14:00 O2 Sat by Pulse Oximetry (%) 98 08/14/16 09:57 Constitutional: Yes: Calm Eyes: Yes: Conjunctiva Clear HENT: Yes: Atraumatic Cardiovascular: Yes: S1, S2 Respiratory: Yes: Rhonchi Gastrointestinal: Yes: Soft Genitourinary: Yes: [place] Present Musculoskeletal: Yes: Muscle Weakness Edema: Yes Edema: LUE: 1+, RUE: 1+, LLE: 1+, RLE: 1+ Neurological: Yes: Other (awake) Labs: CBC, BMP 08/14/16 05:30 08/14/16 05:30 INR, PTT INR 1.07 (0.82-1.09) 08/13/16 05:35 Fibrinogen 463.0 mg/dL (238-498) D 08/13/16 05:35 - ....Imaging Chest X-ray: Report Reviewed Problem List - Problems (1) CAD (coronary artery disease) Code(s): I25.10 - ATHSCL HEART DISEASE OF [place] CORONARY ARTERY W/O ANG PCTRS Qualifiers: Coronary Disease-Associated Artery/Lesion type: unspecified vessel or lesion type [place] vs. transplanted heart: [place] heart Associated angina: without angina Qualified Code(s): I25.10 - Atherosclerotic heart disease of [place] coronary artery without angina pectoris (2) Calculus of common duct with obstruction Code(s): K80.51 - CALCULUS OF BILE DUCT W/O CHOLANGITIS OR CHOLECYST W OBST (3) Choledocholithiasis Code(s): K80.50 - CALCULUS OF BILE DUCT W/O CHOLANGITIS OR CHOLECYST W/O OBST (4) Renal cancer Code(s): C64.9 - MALIGNANT NEOPLASM OF UNSP KIDNEY, EXCEPT RENAL PELVIS Qualifiers: Laterality: right Qualified Code(s): C64.1 - Malignant neoplasm of right kidney, except renal pelvis (5) CRISS (acute kidney injury) Code(s): N17.9 - ACUTE KIDNEY FAILURE, UNSPECIFIED (6) CKD (chronic kidney disease) Code(s): N18.9 - CHRONIC KIDNEY DISEASE, UNSPECIFIED Assessment/Plan Current Medications Generic Name Dose Route Start Last Admin Trade Name Freq PRN Reason Stop Dose Admin Albuterol/Ipratropium 1 amp 08/14/16 14:30 Duoneb - NEB Q6H PRN SHORTNESS OF BREATH Chlorhexidine Gluconate 15 ml 08/10/16 22:00 08/14/16 09:06 Peridex - MM 15 ml BID SUBHA Administration Chlorhexidine Gluconate 1 applic 08/10/16 22:00 08/13/16 22:25 Hibiclens For Decolonization - TP 1 applic HS SUBHA Administration Cefazolin Sodium 0.5 gm/ 50 mls @ 100 mls/hr 08/10/16 10:00 08/14/16 09:05 Dextrose IVPB 100 mls/hr BID SUBHA Administration Nystatin 1 applic 08/08/16 22:00 08/14/16 09:06 Nystop Powder - TP 1 applic BID SUBHA Administration Ranitidine HCl 150 mg 08/14/16 10:00 08/14/16 09:12 Zantac Oral Solution - PO 150 mg DAILY SUBHA Administration Sodium Bicarbonate 1,300 mg 08/11/16 12:30 08/14/16 09:06 Sodium Bicarbonate - NGT 1,300 mg BID SUBHA Administration Ursodiol 300 mg 08/10/16 22:00 08/14/16 09:12 Actigal - PO 300 mg BID SUBHA Administration Impression 1. CKD stage 3 2. CRISS 3. choledocholithiasis 4. CAD 5. hx of Renal Cell Cancer s/p nephroectomy 6. aortic stenosis 7. sepsis 8. acute respiratory failure requiring intubation 9. NSTEMI 10. bacteremia Plan - pt tolerated HD yesterday - he is making urine - will give a dose of lasix - repeat labs in am - will assess for HD in am - decrease dose of bicarb - discussed with ICU team - monitor in ICU Dr Medina
[2016-08-14] MEDS ORDERED: FUROSEMIDE 40 MG/4 ML INJECTABLE VIAL IVPB ONE (15:27)
--- NOTE | 2016-08-14 17:49 | PN ---
Progress Note (short form) - Note Progress Note: Patient seen and examined Extubated Weak Not very communicative Last Vital Signs Temp Pulse Resp BP Pulse Ox 98.5 F 77 22 95/43 98 08/14/16 16:00 08/14/16 16:00 08/14/16 16:00 08/14/16 16:00 08/14/16 09:57 No icterus Poor inspiratory effort Cor- RSR Abd- soft LE edema -SCD CBC, BMP 08/14/16 05:30 08/14/16 05:30 INR, PTT INR 1.07 (0.82-1.09) 08/13/16 05:35 Fibrinogen 463.0 mg/dL (238-498) D 08/13/16 05:35 Current Medications Generic Name Dose Route Start Last Admin Trade Name Freq PRN Reason Stop Dose Admin Albuterol/Ipratropium 1 amp 08/14/16 14:30 Duoneb - NEB Q6H PRN SHORTNESS OF BREATH Chlorhexidine Gluconate 15 ml 08/10/16 22:00 08/14/16 09:06 Peridex - MM 15 ml BID SUBHA Administration Chlorhexidine Gluconate 1 applic 08/10/16 22:00 08/13/16 22:25 Hibiclens For Decolonization - TP 1 applic HS SUBHA Administration Cefazolin Sodium 0.5 gm/ 50 mls @ 100 mls/hr 08/10/16 10:00 08/14/16 09:05 Dextrose IVPB 100 mls/hr BID SUBHA Administration Nystatin 1 applic 08/08/16 22:00 08/14/16 09:06 Nystop Powder - TP 1 applic BID SUBHA Administration Ranitidine HCl 150 mg 08/14/16 10:00 08/14/16 09:12 Zantac Oral Solution - PO 150 mg DAILY SUBHA Administration Sodium Bicarbonate 650 mg 08/14/16 15:24 Sodium Bicarbonate - NGT BID SUBHA Ursodiol 300 mg 08/10/16 22:00 08/14/16 09:12 Actigal - PO 300 mg BID SUBHA Administration Impression: S/P ERCP CBD stone S/P intubation/extubation Sepsis Renal Insufficiency Anemia- chronic disease Thrombocytopenia + HIT Ab Plan: Continue with antibiotics per I.D. Would transfuse one unit of Packed cells at dialysis Check Serotonin releasing Antibody.
[2016-08-14] MEDS: CHLORHEXIDINE GLUCONATE 4% CLEANSER FOR DECOLONIZATION TP SCH (21:39)
[2016-08-15 05:46] LABS: BASOPHIL 0.5 % (0-2.0); EOSINOPHIL 6.7 % (0-4.5); MCH 29.3 pg (25.7-33.7); MCHC 33.8 g/dl (32.0-35.9); MEAN CELL VOLUME 86.5 fl (80-96); MEAN PLT VOLUME 11.6 fl (7.5-11.1); NEUTROPHILS 78.8 % (42.8-82.8); PLATELET COUNT 69 K/MM3 (134-434); RDW 15.6 % (11.9-15.9); WHITE BLOOD COUNT 10.5 K/mm3 (4.0-10.0)
[2016-08-15 06:11] LABS: ALBUMIN 1.9 g/dl (3.4-5.0); CALCIUM 8.1 mg/dL (8.5-10.1); COCKROFT - GAULT 12.25; CREATININE 6.1 mg/dL (0.7-1.3); TOT PROT 4.3 g/dl (6.4-8.2)
--- NOTE | 2016-08-15 07:44 | PN ---
Progress Note, Physician Chief Complaint: ID Now in [place] restraint. Arousable but speech garbles Unable to answer questions Cefazolin day 8 antibiotics - Current Medication List Current Medications: Active Medications Albuterol/Ipratropium (Duoneb -) 1 amp NEB Q6H PRN PRN Reason: SHORTNESS OF BREATH Chlorhexidine Gluconate (Peridex -) 15 ml MM BID [facility] Last Admin: 08/14/16 21:39 Dose: 15 ml Chlorhexidine Gluconate (Hibiclens For Decolonization -) 1 applic TP HS [facility] Last Admin: 08/14/16 21:39 Dose: 1 applic Cefazolin Sodium 0.5 gm/ (Dextrose) 50 mls @ 100 mls/hr IVPB BID [facility] Last Admin: 08/14/16 21:38 Dose: 100 mls/hr Nystatin (Nystop Powder -) 1 applic TP BID [facility] Last Admin: 08/14/16 21:39 Dose: 1 applic Ranitidine HCl (Zantac Oral Solution -) 150 mg PO DAILY [facility] Last Admin: 08/14/16 09:12 Dose: 150 mg Sodium Bicarbonate (Sodium Bicarbonate -) 650 mg NGT BID [facility] Last Admin: 08/14/16 21:38 Dose: Not Given Ursodiol (Actigal -) 300 mg PO BID [facility] Last Admin: 08/14/16 21:38 Dose: Not Given - Objective Vital Signs: Vital Signs Temperature 97.8 F 08/15/16 06:00 Pulse Rate 68 08/15/16 06:00 Respiratory Rate 18 08/15/16 06:00 Blood Pressure 109/52 08/15/16 06:00 O2 Sat by Pulse Oximetry (%) 97 08/14/16 20:29 Constitutional: Yes: Well Nourished Cardiovascular: Yes: S1, S2. No: Murmur Respiratory: Yes: WNL, Regular, CTA Bilaterally Gastrointestinal: Yes: WNL, Normal Bowel Sounds, Soft. No: Tenderness, Tenderness, Rebound Extremities: No: Cold, Cool, Cyanosis Edema: Yes Labs: CBC, BMP 08/15/16 05:25 08/15/16 05:25 INR, PTT INR 1.07 (0.82-1.09) 08/13/16 05:35 Fibrinogen 463.0 mg/dL (238-498) D 08/13/16 05:35 Problem List - Problems (1) Biliary sepsis Code(s): K83.0 - CHOLANGITIS (2) Bacteremia due to Gram-negative bacteria Code(s): R78.81 - BACTEREMIA (3) Thrombocytopenia Code(s): D69.6 - THROMBOCYTOPENIA, UNSPECIFIED Assessment/Plan Microbiology 08/07/16 10:42 Blood - Peripheral Venous Blood Culture - Final Escherichia Coli 08/07/16 10:40 Blood - Peripheral Venous Blood Culture - Final Escherichia Coli Laboratory Tests 08/15/16 08/15/16 05:25 05:25 WBC 10.5 H Hgb 7.6 L Hct 22.4 L Plt Count 69 L D Creatinine 6.1 H Creat Clearance w eGFR 8.77 AST 47 H ALT 11 L D Alkaline Phosphatase 422 H Assessment Sepsis syndrome resolved E Coli bacteremia day 8 antibiotics Post ERCP with stent placement Thrombocytopenia ( sepsis related bacteremia plus HIT Ab positive ) Acute kidney failure Plan Continue Cefazolin as ordered to complete total 10 days now day 8 35 minutes spent providing ICU critical care Fred SCOTT
[2016-08-15] MEDS ORDERED: PT OWN MED DRAWER 7, Y5N ONE (08:07)
--- NOTE | 2016-08-15 08:57 | PN ---
Physical Exam: SUBJECTIVE: Patient seen and examined sleeping comfortable in bed, NAD. on reassessment, speaking clearly, asking to go home, attempting to swing legs off bed, but remains calm and cooperative when I oriented him, not combative. OBJECTIVE: Vital Signs Period Temp Pulse Resp BP Sys/Hinkle Pulse Ox Last 24 Hr 97.2 F-98.5 F 63-86 14-25 93-119/43-57 97-100 EYES: sluggish pupilary response with PERRLA and EOMI, conjunctiva clear. No ptosis. anicteric sclera, ENT: oropharynx scant dried dark mucous, dry mucous membranes, no erythema, lateral line of demuted skin without discharge on top lip from ET strap - improving. edematous upper lip LUNGS: Breath sounds equal, clear at apices, diminished breath sounds at bases HEART: Regular rate and rhythm, S1, S2 without murmur, rub or gallop. ABDOMEN: Soft, nondistended, multiple diffuse palpable soft mobile nodularities , normoactive bowel sounds, periumbilical erythema with demuted skin laterally along skin fold and within umbilicus, scant serous discharge in umbilicus, covered with nystatin power EXTREMITIES: 2+ pulses in b/l radial and DP, warm, 1+ edema in b/l forearms and arms, trace edema in b/l hands, well-perfused, trace edema in left foot. scd's in place. Neuro: facial symmetry. SKIN: Warm, improved jaundice Stone in place. left IJ site CDI, dialysis access on left. Laboratory Results - last 24 hr 08/13/16 08/13/16 08/15/16 16:56 16:56 05:25 WBC 10.5 H RBC 2.59 L Hgb 7.6 L Hct 22.4 L MCV 86.5 MCHC 33.8 RDW 15.6 Plt Count 69 L D MPV 11.6 H Neutrophils % 78.8 Lymphocytes % 6.6 L Monocytes % 7.4 Eosinophils % 6.7 H Basophils % 0.5 Sodium Potassium Chloride Carbon Dioxide Anion Gap BUN Creatinine Creat Clearance w eGFR Random Glucose Calcium Total Bilirubin AST ALT Alkaline Phosphatase Total Protein Albumin Hepatitis C Antibody <0.1 Cancelled 08/15/16 05:25 WBC RBC Hgb Hct MCV MCHC RDW Plt Count MPV Neutrophils % Lymphocytes % Monocytes % Eosinophils % Basophils % Sodium 136 Potassium 3.9 Chloride 101 Carbon Dioxide 24 Anion Gap 11 BUN 93 H Creatinine 6.1 H Creat Clearance w eGFR 8.77 Random Glucose 79 Calcium 8.1 L Total Bilirubin 2.0 H AST 47 H ALT 11 L D Alkaline Phosphatase 422 H Total Protein 4.3 L Albumin 1.9 L Hepatitis C Antibody Active Medications Generic Name Dose Route Start Last Admin Trade Name Freq PRN Reason Stop Dose Admin Albuterol/Ipratropium 1 amp 08/14/16 14:30 Duoneb - NEB Q6H PRN SHORTNESS OF BREATH Chlorhexidine Gluconate 15 ml 08/10/16 22:00 08/14/16 21:39 Peridex - MM 15 ml BID SUBHA Administration Chlorhexidine Gluconate 1 applic 08/10/16 22:00 08/14/16 21:39 Hibiclens For Decolonization - TP 1 applic HS SUBHA Administration Cefazolin Sodium 0.5 gm/ 50 mls @ 100 mls/hr 08/10/16 10:00 08/14/16 21:38 Dextrose IVPB 100 mls/hr BID SUBHA Administration Nystatin 1 applic 08/08/16 22:00 08/14/16 21:39 Nystop Powder - TP 1 applic BID SUBHA Administration Ranitidine HCl 150 mg 08/14/16 10:00 08/14/16 09:12 Zantac Oral Solution - PO 150 mg DAILY SUBHA Administration Sodium Bicarbonate 650 mg 08/14/16 15:24 08/14/16 21:38 Sodium Bicarbonate - NGT Not Given BID SUBHA Ursodiol 300 mg 08/10/16 22:00 08/14/16 21:38 Actigal - PO Not Given BID SUBHA ASSESSMENT/PLAN: 85 yr old man with HTN, aortic stenosis, CAD s/p stents, r-nephroctomy(renal ca) , pancreatic head density found to have choleluithaisis with obstructing CBD, s/ p ERCP with stent placement(unable to undergo sphincterectomy due to anticoagulation) complicated by septic shock requiring ICU admission. - speech and swallow consult for further assesment, on my bedside ICU assessment he held the water in his mouth but did not swallow, possibly needs more time to recover from extubation, will start with clear liquids. Renal oliguric CRISS/ATN due to sepsis induced hypoperfusion, on CKD stage 3 - dialysis today - monitor I&O, stone in place, urine output 1350cc/24hr, given 1 dose lasix yesterday - Left IJ dialsyis cather placed 08/13 - renal dosing of medications consult: Dr. Medina Infectious Disease Septic shock with multi-organ failure likely secondary to cholangitis and e.coli bactermia(likely gallbladder as primary source) - improving - ofirmev 1gm IVpb q6hr for fever Abx tx: Cefazolin (renally dosed) start 08/10 - day 6 - topical antifungal cream to periumbical area Consult: Dr. Boggs Cardiovascular Normotensive - maintain Goal: MAP>65 consult: dr. ayala Pulmonary breathing comfortably, sat 100% Gastrointestinal Cholangitis s/p ERCP with biliary stent placement actigal to soften gall stones trend LFT's, trending down as per GI will need ERCP for stone extraction prophylaxis with zantac daily Speech and Swallow eval - likely to improve in 1-2 days post-extubation when patient is more alert will start with clear liquids, reassess and advance as tolerated. consult: Dr. Thompson Hematological normocytic anemia - chronic, trend h/h, monitor for bleeding. - transfuse 2 units of prbc's during dialysis today leucocytosis mildly elevated after normalizing yesterday- possibly reactive to extubation trauma, pt has been afebrile thrombocytopenia - likely due to sepsis, r./o DIC; trend fibrinogen and fibrin degradation products: HIT AB POSITIVE, serotonin realeasing assay for confirmation pending. continue heparin for now. maintain platelet >20,000 consult: Dr. Rushing Dermatological periumbical discharge - topical antifungal Dr Weems consulted for surgical eval; patient is high risk for operative intervention, recommend IR intervention for percutaneous drainage - no collection noted on CT scan. Dr. Carney consulted Neurological improved mentation. calmly sleeping. DVT: heparin 5000 units SQ BID Diet: NPO, aspiration risk, pending speech and swallow re-evaluation Dispo: stable to be monitored on Med-Surg floor Visit type - Emergency Visit Emergency Visit: No - New Patient This patient is new to me today: No - Critical Care Critical Care patient: Yes Total Critical Care Time (in minutes): 45 Critical Care Statement: The care of this patient involved high complexity decision making to prevent further life threatening deterioration of the patient 's condition and/or to evalute & treat vital organ system(s) failure or risk of failure.
[2016-08-15] MEDS: RANITIDINE HCL 150 MG/10 ML UNIT-DOSE CUP PO SCH (10:00)
[2016-08-15] MEDS: NYSTATIN POWDER 100,000 UNITS/GM - 15 GM TOPICAL POWDER TP SCH (10:00)
[2016-08-15] MEDS: CEFAZOLIN 0.5 GM in DEXTROSE 5%-WATER - 50 ML IVPB SCH ×2 (10:00→23:13)
[2016-08-15] MEDS: CHLORHEXIDINE GLUCONATE 0.12% 15ML CUP MM SCH (10:00)
[2016-08-15] MEDS: SODIUM BICARBONATE 650 MG TABLET NGT SCH (10:00)
[2016-08-15] MEDS: URSODIOL 300 MG CAPSULE PO SCH ×2 (10:00→21:55)
--- NOTE | 2016-08-15 11:45 | PN ---
Teaching Attending Note Name of Resident: Darryl Olmedo ATTENDING PHYSICIAN STATEMENT I saw and evaluated the patient. I reviewed the resident's note and discussed the case with the resident. I agree with the resident's findings and plan as documented. SUBJECTIVE: Pt seen and examined in the ICU. Remains extubated but somnolent. No fevers recorded. OBJECTIVE: Last Vital Signs Temp Pulse Resp BP Pulse Ox 97.6 F 68 21 107/50 100 08/15/16 10:00 08/15/16 10:00 08/15/16 10:00 08/15/16 10:00 08/15/16 08:00 Intake & Output 08/12/16 08/13/16 08/14/16 08/15/16 23:59 23:59 23:59 23:59 Intake Total 1463 511 8879 Output Total 1050 1300 1350 1100 Balance 660 -470 -190 -1100 Weight 225 lb 224 lb 14.4 oz 223 lb 14.4 oz 215 lb 2.738 oz Gen: breathing nonlabored Heart: RRR Lung: decreased breath sounds at the bases Abd: soft, nontender Ext: no edema CBC, BMP 08/15/16 05:25 08/15/16 05:25 Active Medications Albuterol/Ipratropium (Duoneb -) 1 amp NEB Q6H PRN PRN Reason: SHORTNESS OF BREATH Chlorhexidine Gluconate (Peridex -) 15 ml MM BID [facility] Last Admin: 08/14/16 21:39 Dose: 15 ml Chlorhexidine Gluconate (Hibiclens For Decolonization -) 1 applic TP HS [facility] Last Admin: 08/14/16 21:39 Dose: 1 applic Cefazolin Sodium 0.5 gm/ (Dextrose) 50 mls @ 100 mls/hr IVPB BID [facility] Last Admin: 08/15/16 10:00 Dose: 100 mls/hr Nystatin (Nystop Powder -) 1 applic TP BID [facility] Last Admin: 08/15/16 10:00 Dose: 1 applic Ranitidine HCl (Zantac Oral Solution -) 150 mg PO DAILY [facility] Last Admin: 08/15/16 10:00 Dose: Not Given Sodium Bicarbonate (Sodium Bicarbonate -) 650 mg NGT BID [facility] Last Admin: 08/15/16 10:00 Dose: Not Given Ursodiol (Actigal -) 300 mg PO BID [facility] Last Admin: 08/15/16 10:00 Dose: Not Given ASSESSMENT AND PLAN: Acute Cholangitis Gram Negative Bacteremia s/p ERCP/sphincteroplasty/stent placement s/p Acute Hypoxic Respiratory Failure Septic Shock resolving Acute on Chronic Renal Failure requiring HD Lactic Acidosis resolved CAD +Troponins likely Demand Ischemia s/p TAVR for severe Aortic Stenosis Thrombocytopenia - continue antibiotics - monitor CBC - HD per renal - monitor urine output, creatinine - PO per GI - DVT/GI prophylaxis - can monitor on floor critical care time spent in reviewing chart, evaluating patient and formulating plan 35 min
--- NOTE | 2016-08-15 11:49 | PN ---
GI Progress Note Subjective: GI NOte: Extubated and now requiring dialysis. Blane is sleepy but arousable. I explained the situation of his stones in the bile duct and the need for a repeat ERCP to extract them. I explained that he is still too weak to consider it and needs an improvement in platelet count - Objective Vital Signs: Vital Signs Temperature 97.6 F 08/15/16 10:00 Pulse Rate 68 08/15/16 10:00 Respiratory Rate 21 08/15/16 10:00 Blood Pressure 107/50 08/15/16 10:00 O2 Sat by Pulse Oximetry (%) 100 08/15/16 08:00 Constitutional: Other (lethargic but conversant) ...Auscultate: Yes: Normoactive Bowel Sounds ...Palpate: Yes: Soft, Other (nontender) Labs: CBC, BMP 08/15/16 05:25 08/15/16 05:25 INR, PTT INR 1.07 (0.82-1.09) 08/13/16 05:35 Fibrinogen 463.0 mg/dL (238-498) D 08/13/16 05:35 Laboratory Tests 08/15/16 08/15/16 05:25 05:25 Hgb 7.6 L Hct 22.4 L Plt Count 69 L D Total Bilirubin 2.0 H AST 47 H ALT 11 L D Alkaline Phosphatase 422 H Albumin 1.9 L Assessment/Plan Recovering slowly from cholangitis. Will need ERCP to extract residual stones when his clinical condition permits.
--- NOTE | 2016-08-15 11:51 | PN ---
Progress Note, Physician History of Present Illness: Extubated on 100% NRB. - Current Medication List Current Medications: Active Medications Albuterol/Ipratropium (Duoneb -) 1 amp NEB Q6H PRN PRN Reason: SHORTNESS OF BREATH Chlorhexidine Gluconate (Peridex -) 15 ml MM BID [facility] Last Admin: 08/14/16 21:39 Dose: 15 ml Chlorhexidine Gluconate (Hibiclens For Decolonization -) 1 applic TP HS [facility] Last Admin: 08/14/16 21:39 Dose: 1 applic Cefazolin Sodium 0.5 gm/ (Dextrose) 50 mls @ 100 mls/hr IVPB BID [facility] Last Admin: 08/15/16 10:00 Dose: 100 mls/hr Nystatin (Nystop Powder -) 1 applic TP BID [facility] Last Admin: 08/15/16 10:00 Dose: 1 applic Ranitidine HCl (Zantac Oral Solution -) 150 mg PO DAILY [facility] Last Admin: 08/15/16 10:00 Dose: Not Given Sodium Bicarbonate (Sodium Bicarbonate -) 650 mg NGT BID [facility] Last Admin: 08/15/16 10:00 Dose: Not Given Ursodiol (Actigal -) 300 mg PO BID [facility] Last Admin: 08/15/16 10:00 Dose: Not Given - Objective Vital Signs: Vital Signs Temperature 97.6 F 08/15/16 10:00 Pulse Rate 68 08/15/16 10:00 Respiratory Rate 21 08/15/16 10:00 Blood Pressure 107/50 08/15/16 10:00 O2 Sat by Pulse Oximetry (%) 100 08/15/16 08:00 Constitutional: Yes: No Distress Neck: Yes: Supple Cardiovascular: Yes: Regular Rate and Rhythm Respiratory: Yes: Regular, Diminished, On Venti-Mask, Rhonchi Gastrointestinal: Yes: Normal Bowel Sounds, Soft Edema: No Labs: CBC, BMP 08/15/16 05:25 08/15/16 05:25 INR, PTT INR 1.07 (0.82-1.09) 08/13/16 05:35 Fibrinogen 463.0 mg/dL (238-498) D 08/13/16 05:35 Problem List - Problems (1) CRISS (acute kidney injury) Code(s): N17.9 - ACUTE KIDNEY FAILURE, UNSPECIFIED (2) Bacteremia due to Gram-negative bacteria Code(s): R78.81 - BACTEREMIA (3) Biliary sepsis Code(s): K83.0 - CHOLANGITIS (4) CAD (coronary artery disease) Code(s): I25.10 - ATHSCL HEART DISEASE OF [place] CORONARY ARTERY W/O ANG PCTRS Qualifiers: Coronary Disease-Associated Artery/Lesion type: unspecified vessel or lesion type [place] vs. transplanted heart: [place] heart Associated angina: without angina Qualified Code(s): I25.10 - Atherosclerotic heart disease of [place] coronary artery without angina pectoris (5) CKD (chronic kidney disease) Code(s): N18.9 - CHRONIC KIDNEY DISEASE, UNSPECIFIED (6) Calculus of common duct with obstruction Code(s): K80.51 - CALCULUS OF BILE DUCT W/O CHOLANGITIS OR CHOLECYST W OBST (7) History of percutaneous coronary intervention Code(s): Z98.890 - OTHER SPECIFIED POSTPROCEDURAL STATES (8) S/P ERCP Code(s): Z98.890 - OTHER SPECIFIED POSTPROCEDURAL STATES (9) Thrombocytopenia Code(s): D69.6 - THROMBOCYTOPENIA, UNSPECIFIED (10) Acute hypoxemic respiratory failure Code(s): J96.01 - ACUTE RESPIRATORY FAILURE WITH HYPOXIA (11) Gram negative septic shock Code(s): A41.50 - GRAM-NEGATIVE SEPSIS, UNSPECIFIED R65.21 - SEVERE SEPSIS WITH SEPTIC SHOCK (12) Left bundle branch block Code(s): I44.7 - LEFT BUNDLE-BRANCH BLOCK, UNSPECIFIED (13) Demand ischemia Code(s): I24.8 - OTHER FORMS OF ACUTE ISCHEMIC HEART DISEASE (14) Anemia Code(s): D64.9 - ANEMIA, UNSPECIFIED Qualifiers: Anemia type: unspecified type Qualified Code(s): D64.9 - Anemia, unspecified Assessment/Plan 1. s/p hypoxemic respiratory failure 2. Biliary septic shock (E. coli), acute cholangitis post ERCP, balloon sphincteroplasty and stent placement with leukocytosis and lactic acidosis resolved 3. Post TAVR for severe 4. CAD, S/P PCI/stent with demand ischemic injury 5. Severe biventricular dysfunction referable to sepsis 6. H/O Hypertension, but hypotensive requiring pressors - since weaned off 7. Renal CA S/P right nephrectomy 8. Acute on CKD referable to septic shock and ATN - currently on HD 9. Thrombocytopenia due to sepsis 10. Anemia of chronic disease PLAN: 1. Wean FIO2 to maintain saO2 2. Monitor renal function - Diuretics and HD as per Renal 3. Complete antibiotics coverage, plan for eventual stone removal once more stable 4. DVT and GI prophylaxis
--- NOTE | 2016-08-15 12:04 | CONSULT ---
Admitting History and Physical - Primary Care Physician PCP: Jennifer Beckham - Admission History of Present Illness: This is an 85 y/o male with pmhx significant for renal cell CA S/P right nephrectomy, HTN, CAD S/P PCI/stent (1995) and S/P TAVR . Abnormal MRI of abdomen showing prominent head of pancreas, large distal CBD stone and dilated CBD and labs c/w cholangitis. ERCP with balloon sphinctertomy and stent placement. Pt tolerated procedure well and was extubated however pt was apneic and re- intubated. In ICU, extubated yesterday. Swallowing evaluation and clear liquids ordered but not given. History Source: Medical Record Limitations to Obtaining History: Clinical Condition - Past Medical History Cardiovascular: Yes: Aortic Stenosis (Post TAVR at [facility] in 2015), CAD (s/p cardiac stent/ PCI 1995), HTN, Hyperlipdemia, Other Gastrointestinal: No: Irritable Bowel Disease Hepatobiliary: Yes: Cholelithiasis Renal/: Yes: Renal Inusuff, Cancer (Renal CA ), Renal Calculi, Other ( urethral stricture s/p cystoscopy, nephrectomy for RCC) Heme/Onc: Yes: Other (renal cell cancer) - Past Surgical History Past Surgical History: Yes: Nephrectomy, Stent, Valve Replacement (TAVR) - Smoking History Smoking history: Never smoked Have you smoked in the past 12 months: No - Alcohol/Substance Use Hx Alcohol Use: No History of Substance Use: reports: None - Social History ADL: Independent 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 History of Recent Travel: No History - Admission Reason For Visit: CALCULUS OF COMMON DUCT WITH OBSTRUCTION - General Mental Status: Awake and Alert, Able to Follow Commands, Lethargic (arousable) Ability to Follow Directions: Fair - Hearing Hearing: Impaired, Both Hearing Aide: Yes With Patient: Yes Speech Evaluation - Communication Primary Language: FAROESE Communication: Yes: Simple Responses Oral Expression Ability: Yes: Moderate Impairment - Speech Production Able to Make Needs Known: Yes: Moderately Impaired Intelligibility: Yes: Moderately Impaired - Speech Characteristics Voice Loudness: Normal Voice Pitch: Yes: Pitch Breaks Voice Phonatory-based Quality: Yes: Dysphonia Nasal Resonance: Hypernasal Articulation: Yes: Imprecise - Swallow Evaluation/Bedside Assessment Facial Symmetry at Rest: Symmetrical (Lips/tongue swollen secondary to intubation. Extubated yesterday.) Facial Symmetry on Retraction: Symmetrical (bilaterally restricted due to swelling) Jaw Position: Open at Rest Lingual Movement: Symmetric (swollen), Reduced Tip Depression, Reduced Tip Elevation, Reduced Lt Lateralization, Reduced Protrusion Lingual Speed of Movement: Reduced Lingual Movement Strgth Against Opposition: Reduced Velopharyngeal Movement: Hypernasality (likely sec swelling from intubation) Laryngeal Movement: Able to Palpate Timing of Swallow: Delayed Coughing/Throat Clear: No Recommendations - Speech Evaluation, Impression/Plan Impression: Lips/tongue swollen secondary to intubation. Extubated yesterday. Swallow seems brisk. Presently high risk of aspiration sec lethargy and oral swelling sec intubation. Likely to improve significantly in a day or two. - Dysphagia Impressions/Plan Dysphagia Impressions: Risk of Aspiration *Silent aspiration: cannot be R/O at bedside Recommendations: Other (to reassess as swelling improves.) - Recommendations Diet Consistency: NPO Liquids: NPO
--- NOTE | 2016-08-15 12:37 | PN ---
Progress Note, Physician History of Present Illness: Pt seen and examined at bedside. He remains in the ICU. Pt is extubated. - Current Medication List Current Medications: Active Medications Albuterol/Ipratropium (Duoneb -) 1 amp NEB Q6H PRN PRN Reason: SHORTNESS OF BREATH Chlorhexidine Gluconate (Peridex -) 15 ml MM BID [facility] Last Admin: 08/14/16 21:39 Dose: 15 ml Chlorhexidine Gluconate (Hibiclens For Decolonization -) 1 applic TP HS [facility] Last Admin: 08/14/16 21:39 Dose: 1 applic Cefazolin Sodium 0.5 gm/ (Dextrose) 50 mls @ 100 mls/hr IVPB BID [facility] Last Admin: 08/15/16 10:00 Dose: 100 mls/hr Nystatin (Nystop Powder -) 1 applic TP BID [facility] Last Admin: 08/15/16 10:00 Dose: 1 applic Ranitidine HCl (Zantac Oral Solution -) 150 mg PO DAILY [facility] Last Admin: 08/15/16 10:00 Dose: Not Given Sodium Bicarbonate (Sodium Bicarbonate -) 650 mg NGT BID [facility] Last Admin: 08/15/16 10:00 Dose: Not Given Ursodiol (Actigal -) 300 mg PO BID [facility] Last Admin: 08/15/16 10:00 Dose: Not Given - Objective Vital Signs: Vital Signs Temperature 97.0 F L 08/15/16 12:00 Pulse Rate 71 08/15/16 12:00 Respiratory Rate 18 08/15/16 12:00 Blood Pressure 93/43 08/15/16 12:00 O2 Sat by Pulse Oximetry (%) 100 08/15/16 08:00 Constitutional: Yes: Calm Neck: Yes: Supple Cardiovascular: Yes: S1, S2 Respiratory: Yes: On Venti-Mask, Rhonchi Gastrointestinal: Yes: Soft Genitourinary: Yes: [place] Present Edema: Yes Edema: LUE: 1+, RUE: 1+, LLE: 1+, RLE: 1+ Neurological: Yes: Other (awake) Labs: CBC, BMP 08/15/16 05:25 08/15/16 05:25 INR, PTT INR 1.07 (0.82-1.09) 08/13/16 05:35 Fibrinogen 463.0 mg/dL (238-498) D 08/13/16 05:35 Problem List - Problems (1) CAD (coronary artery disease) Code(s): I25.10 - ATHSCL HEART DISEASE OF [place] CORONARY ARTERY W/O ANG PCTRS Qualifiers: Coronary Disease-Associated Artery/Lesion type: unspecified vessel or lesion type [place] vs. transplanted heart: [place] heart Associated angina: without angina Qualified Code(s): I25.10 - Atherosclerotic heart disease of [place] coronary artery without angina pectoris (2) Calculus of common duct with obstruction Code(s): K80.51 - CALCULUS OF BILE DUCT W/O CHOLANGITIS OR CHOLECYST W OBST (3) Choledocholithiasis Code(s): K80.50 - CALCULUS OF BILE DUCT W/O CHOLANGITIS OR CHOLECYST W/O OBST (4) Renal cancer Code(s): C64.9 - MALIGNANT NEOPLASM OF UNSP KIDNEY, EXCEPT RENAL PELVIS Qualifiers: Laterality: right Qualified Code(s): C64.1 - Malignant neoplasm of right kidney, except renal pelvis (5) CRISS (acute kidney injury) Code(s): N17.9 - ACUTE KIDNEY FAILURE, UNSPECIFIED (6) CKD (chronic kidney disease) Code(s): N18.9 - CHRONIC KIDNEY DISEASE, UNSPECIFIED Assessment/Plan Current Medications Generic Name Dose Route Start Last Admin Trade Name Freq PRN Reason Stop Dose Admin Albuterol/Ipratropium 1 amp 08/14/16 14:30 Duoneb - NEB Q6H PRN SHORTNESS OF BREATH Chlorhexidine Gluconate 15 ml 08/10/16 22:00 08/14/16 21:39 Peridex - MM 15 ml BID [facility] Administration Chlorhexidine Gluconate 1 applic 08/10/16 22:00 08/14/16 21:39 Hibiclens For Decolonization - TP 1 applic HS [facility] Administration Cefazolin Sodium 0.5 gm/ 50 mls @ 100 mls/hr 08/10/16 10:00 08/15/16 10:00 Dextrose IVPB 100 mls/hr BID [facility] Administration Nystatin 1 applic 08/08/16 22:00 08/15/16 10:00 Nystop Powder - TP 1 applic BID [facility] Administration Ranitidine HCl 150 mg 08/14/16 10:00 08/15/16 10:00 Zantac Oral Solution - PO Not Given DAILY [facility] Sodium Bicarbonate 650 mg 05/23/17 15:24 08/15/16 10:00 Sodium Bicarbonate - NGT Not Given BID [facility] Ursodiol 300 mg 08/10/16 22:00 08/15/16 10:00 Actigal - PO Not Given BID [facility] Impression 1. CKD stage 3 2. CRISS 3. choledocholithiasis 4. CAD 5. hx of Renal Cell Cancer s/p nephroectomy 6. aortic stenosis 7. sepsis 8. acute respiratory failure requiring intubation 9. NSTEMI 10. bacteremia Plan - will arrange for HD today - discussed with medical team, can receive PRBC on HD - hold off lasix - monitor urine output, which is improving - can stop PO bicarb for now - repeat labs in am - discussed with ICU team - monitor in ICU Dr Medina
--- NOTE | 2016-08-15 16:41 | PN ---
Physical Exam: SUBJECTIVE: Patient seen and examined in ICU. He is lethargic, per RN did not sleep well last night. He is making urine, afebrile Events: - Hgb 7.6 - Extubated yesterday 08/14 - s/p lasix 40mg iv x1 - HD yesterday OBJECTIVE: Vital Signs Period Temp Pulse Resp BP Sys/Hinkle Pulse Ox Last 24 Hr 96.9 F-98.1 F 63-80 16-22 93-122/43-61 97-100 PE Neuro: lethargic, arousable, opens eyes HEENT: + shiley LIJ, glasses Pulm: b/l rhonchi, diminished CV: s1 s2 rrr no mrg Abd: s nt nd + bs : + stone + yellow clear output Ext: +2 le edema, warm Laboratory Results - last 24 hr 08/13/16 08/15/16 08/15/16 16:56 05:25 05:25 WBC 10.5 H RBC 2.59 L Hgb 7.6 L Hct 22.4 L MCV 86.5 MCHC 33.8 RDW 15.6 Plt Count 69 L D MPV 11.6 H Neutrophils % 78.8 Lymphocytes % 6.6 L Monocytes % 7.4 Eosinophils % 6.7 H Basophils % 0.5 Sodium 136 Potassium 3.9 Chloride 101 Carbon Dioxide 24 Anion Gap 11 BUN 93 H Creatinine 6.1 H Creat Clearance w eGFR 8.77 Random Glucose 79 Calcium 8.1 L Total Bilirubin 2.0 H AST 47 H ALT 11 L D Alkaline Phosphatase 422 H Total Protein 4.3 L Albumin 1.9 L Hepatitis A Ab Total Positive Hep Bs Antigen Negatve Hep Bs Antibody Non reactive Hep B Core Total Ab Negative Hepatitis C Antibody <0.1 Blood Type Antibody Screen Crossmatch Active Medications Generic Name Dose Route Start Last Admin Trade Name Freq PRN Reason Stop Dose Admin Albuterol/Ipratropium 1 amp 08/14/16 14:30 Duoneb - NEB Q6H PRN SHORTNESS OF BREATH Chlorhexidine Gluconate 1 applic 08/10/16 22:00 08/14/16 21:39 Hibiclens For Decolonization - TP 1 applic HS [facility] Administration Cefazolin Sodium 0.5 gm/ 50 mls @ 100 mls/hr 08/10/16 10:00 08/15/16 10:00 Dextrose IVPB 100 mls/hr BID [facility] Administration Famotidine/Sodium Chloride 50 mls @ 100 mls/hr 08/15/16 22:00 Pepcid 20 Mg Premixed Ivpb - IVPB BID [facility] Nystatin 1 applic 08/08/16 22:00 08/15/16 10:00 Nystop Powder - TP 1 applic BID [facility] Administration Ursodiol 300 mg 08/10/16 22:00 08/15/16 10:00 Actigal - PO Not Given BID [facility] Microbiology 08/10/16 19:20 Blood Culture - Preliminary Blood - Peripheral Venous NO GROWTH OBTAINED AFTER 96 HOURS, INCUBATION TO CONTINUE FOR 1 DAYS. 08/10/16 18:50 Blood Culture - Preliminary Blood - Peripheral Venous NO GROWTH OBTAINED AFTER 96 HOURS, INCUBATION TO CONTINUE FOR 1 DAYS. Assessment: 85 year old male with HTN, CAD s/p stent placement, aortic stenosis , porcine valve replacement (ASA 81mg and Plavix 75mg), 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 Plan: 1. Septic shock 2/2 acute cholangitis - ERCP s/p balloon sphincteroplasty and biliary stent placement 08/07 - repeat blood cx negative - continue cefazolin 2 more days (11/01) 2. Acute Choledocholithiasis with acute cholangitis - s/p ERCP w/ biliary stent - Will need repeat ERCP to remove remaining stones once stable - Continue Ursodiol BID 3. 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 with hx of right nephrectomy - HD today - Transfuse 2 units PRBC - Hold PO bicarb - Hold repeat lasix 4. Thrombocytopenia - Due to sepsis and +HIT antibody - 1Uplts 08/14 - Hold chemical AC - Trend plts 5. CAD s/p stent placement and demand ischemia, s/p TAVR for - Hold ASA/plavix for above 6. Acute respiratory failure - s/p extubation 08/14 - Stable on RA, goal spo2 <92% 7. Lactic acidosis - Resolved 8. Hypotension - Off pressors - Hold antihypertensives for now, BP stable 9. Nutrition - per speech and swallow will hold on PO, will like resolve swallow in few days - hold PO meds, will convert to IV, OT removed w/ extubation [email or web address] Visit type - Emergency Visit Emergency Visit: Yes ED Registration Date: 08/06/16 Care time: The patient presented to the Emergency Department on the above date and was hospitalized for further evaluation of their emergent condition. - New Patient This patient is new to me today: Yes Date on this admission: 08/15/16 - Critical Care Critical Care patient: No
--- NOTE | 2016-08-15 17:56 | PN ---
Progress Note (short form) - Note Progress Note: In ICU Extubated Awake Vital Signs Period Temp Pulse Resp BP Sys/Hinkle Pulse Ox Last 24 Hr 96.9 F-98.1 F 63-80 16-22 93-182/43-117 97-100 Abd soft, ND CBC,CMP WBC 10.5 K/mm3 (4.0-10.0) H 08/15/16 05:25 RBC 2.59 M/mm3 (4.00-5.60) L 08/15/16 05:25 Hgb 7.6 GM/dL (11.7-16.9) L 08/15/16 05:25 Hct 22.4 % (35.4-49) L 08/15/16 05:25 MCV 86.5 fl (80-96) 08/15/16 05:25 MCHC 33.8 g/dl (32.0-35.9) 08/15/16 05:25 RDW 15.6 % (11.9-15.9) 08/15/16 05:25 Plt Count 69 K/MM3 (134-434) L D 08/15/16 05:25 MPV 11.6 fl (7.5-11.1) H 08/15/16 05:25 Neutrophils % 78.8 % (42.8-82.8) 08/15/16 05:25 Lymphocytes % 6.6 % (8-40) L 08/15/16 05:25 Monocytes % 7.4 % (3.8-10.2) 08/15/16 05:25 Eosinophils % 6.7 % (0-4.5) H 08/15/16 05:25 Basophils % 0.5 % (0-2.0) 08/15/16 05:25 Band Neutrophils 11.0 % (0-10) H D 08/08/16 05:15 Metamyelocytes 5 % (0-2) H D 08/07/16 20:30 Myelocytes 9 % (0-2) H D 08/07/16 20:30 Differential Comment Manual diff done 08/09/16 08:30 Dohle Bodies 1+ 08/08/16 05:15 Platelet Estimate Decreased (NORMAL) 08/09/16 08:30 Platelet Comment No clumping noted 08/08/16 05:15 Polychromasia Few 08/08/16 05:15 Hypochromic-Microcytic Few 08/08/16 05:15 Sodium 136 mmol/L (136-145) 08/15/16 05:25 Potassium 3.9 mmol/L (3.5-5.1) 08/15/16 05:25 Chloride 101 mmol/L (98-107) 08/15/16 05:25 Carbon Dioxide 24 mmol/L (21-32) 08/15/16 05:25 Anion Gap 11 (8-16) 08/15/16 05:25 BUN 93 mg/dL (7-18) H 08/15/16 05:25 Creatinine 6.1 mg/dL (0.7-1.3) H 08/15/16 05:25 Creat Clearance w eGFR 8.77 (>60) 08/15/16 05:25 Random Glucose 79 mg/dL (74-106) 08/15/16 05:25 Lactic Acid 1.684 mmol/L (0.4-2.0) 08/08/16 13:20 Calcium 8.1 mg/dL (8.5-10.1) L 08/15/16 05:25 Phosphorus 4.4 mg/dL (2.5-4.9) D 08/14/16 05:30 Magnesium 2.0 mg/dL (1.8-2.4) 08/14/16 05:30 Total Bilirubin 2.0 mg/dL (0.2-1.0) H 08/15/16 05:25 Direct Bilirubin 1.4 mg/dL (0.0-0.2) H D 08/14/16 05:30 AST 47 U/L (15-37) H 08/15/16 05:25 ALT 11 U/L (12-78) L D 08/15/16 05:25 Alkaline Phosphatase 422 U/L (45-117) H 08/15/16 05:25 Creatine Kinase 60 IU/L (39-308) 08/11/16 00:00 Creatine Kinase Index 11.8 % (0.0-5.0) H* 08/08/16 13:20 CK-MB (CK-2) 18.446 ng/ml (0.5-3.6) H 08/08/16 13:20 CK-MB (CK-2) Rel Index Cancelled 08/08/16 13:20 Troponin I 1.73 ng/ml (0.00-0.05) H* 08/11/16 05:15 C-Reactive Protein 21.5 MG/DL (0.00-0.3) H 08/08/16 05:15 Total Protein 4.3 g/dl (6.4-8.2) L 08/15/16 05:25 Albumin 1.9 g/dl (3.4-5.0) L 08/15/16 05:25 Total Amylase 49 U/L (25-115) D 08/08/16 05:15 Lipase 116 U/L (73-393) 08/08/16 05:15 WBC and bilirubin improving Antibiotics Awaiting repeat ERCP to remove CBD stone Problem List - Problems (1) Umbilical discharge Code(s): R19.8 - OT SYMPTOMS AND SIGNS INVOLVING THE DGSTV SYS AND ABDOMEN
[2016-08-15] MEDS: FAMOTIDINE 20 MG/50 ML IVPB 50 ML IVPB SCH (23:13)
[2016-08-16 00:08] LABS: HEP B SURFACE AB Non Reactive (.)
[2016-08-16 08:07] LABS: HIGH DOSE HEPARIN SRA 1 % (0-20); LOW DOSE HEPARIN SRA < 1 % (0-20)
[2016-08-16 08:14] LABS: BASOPHIL 0.8 % (0-2.0); EOSINOPHIL 5.7 % (0-4.5); MCH 29.8 pg (25.7-33.7); MCHC 34.4 g/dl (32.0-35.9); MEAN CELL VOLUME 86.8 fl (80-96); MEAN PLT VOLUME 10.4 fl (7.5-11.1); NEUTROPHILS 79.4 % (42.8-82.8); PLATELET COUNT 72 K/MM3 (134-434); RDW 16.7 % (11.9-15.9); WHITE BLOOD COUNT 9.1 K/mm3 (4.0-10.0)
[2016-08-16 08:39] LABS: ALBUMIN 1.9 g/dl (3.4-5.0); BILIRUBIN,TOTAL 2.1 mg/dL (0.2-1.0); CALCIUM 8.1 mg/dL (8.5-10.1); CREATININE 4.3 mg/dL (0.7-1.3); TOT PROT 4.5 g/dl (6.4-8.2)
[2016-08-16] MEDS: CEFAZOLIN 0.5 GM in DEXTROSE 5%-WATER - 50 ML IVPB SCH ×2 (10:00→22:04)
--- NOTE | 2016-08-16 10:18 | PN ---
Progress Note (short form) - Note Progress Note: PULMONARY More alert today. Denies shortness of breath or chest pain. No fevers or chills. No abdominal pain. Last Vital Signs Temp Pulse Resp BP Pulse Ox 97.6 F 61 16 118/52 100 08/16/16 09:00 08/16/16 09:00 08/16/16 09:00 08/16/16 09:00 08/15/16 21:00 Gen: NAD at rest Heart: RRR Lung: decreased breath sounds at the bases Abd: soft, nontender Ext: no edema CBC, BMP 08/16/16 07:00 08/16/16 07:00 Active Medications Albuterol/Ipratropium (Duoneb -) 1 amp NEB Q6H PRN PRN Reason: SHORTNESS OF BREATH Famotidine/Sodium Chloride (Pepcid 20 Mg Premixed Ivpb -) 50 mls @ 100 mls/hr IVPB BID [facility] Last Admin: 08/15/16 23:13 Dose: 100 mls/hr Cefazolin Sodium 0.5 gm/ (Dextrose) 50 mls @ 100 mls/hr IVPB BID [facility] Last Admin: 08/15/16 23:13 Dose: 100 mls/hr Ursodiol (Actigal -) 300 mg PO BID [facility] Last Admin: 08/15/16 21:55 Dose: Not Given A/P Acute Cholangitis Gram Negative Bacteremia s/p ERCP/sphincteroplasty/stent placement s/p Acute Hypoxic Respiratory Failure Septic Shock resolving Acute on Chronic Renal Failure requiring HD Lactic Acidosis resolved CAD +Troponins likely Demand Ischemia s/p TAVR for severe Aortic Stenosis Thrombocytopenia - continue antibiotics - monitor CBC - HD per renal - monitor urine output, creatinine - PO per GI - DVT/GI prophylaxis
[2016-08-16] MEDS: URSODIOL 300 MG CAPSULE PO SCH ×2 (10:44→22:05)
[2016-08-16] MEDS: FAMOTIDINE 20 MG/50 ML IVPB 50 ML IVPB SCH ×2 (10:44→22:02)
--- NOTE | 2016-08-16 11:20 | PN ---
Progress Note, [employer] - Note Progress Note: Pt now on . Facial swelling improving, more so on left side of lip than right. BOIS FORTE.Oriented to time, different hospital. reoriented and able to retain [facility]. Swallow is delayed in onset. Pt needed cues with each pureed trial to swallow. No overt cough. Slight drooling on right side, sec swelling. Rec: trial of Dys puree, yogurt,pudding, soups, [place] thixck liquid, Ensure compact, Magic cup.
--- NOTE | 2016-08-16 11:58 | PN ---
Physical Exam: SUBJECTIVE: Patient seen and examined. He has no acute complaints, per RN PT unable to stand pt, weak, pt however stated they didn't try. OBJECTIVE: Vital Signs Period Temp Pulse Resp BP Sys/Hinkle Pulse Ox Last 24 Hr 96.9 F-98.7 F 61-75 16-20 93-129/43-63 100 PE Neuro: lethargy improved, responds to voice, able to ask who PT is, oriented to person Pulm: course bases, + NC CV: s1 s2 3/6 systolic murmur Abd: RUQ soft mass, non tender, non distended Ext: + 1 edema, warm, RLE redness CBCD WBC 9.1 K/mm3 (4.0-10.0) 08/16/16 07:00 RBC 3.07 M/mm3 (4.00-5.60) L 08/16/16 07:00 Hgb 9.2 GM/dL (11.7-16.9) L D 08/16/16 07:00 Hct 26.7 % (35.4-49) L D 08/16/16 07:00 MCV 86.8 fl (80-96) 08/16/16 07:00 MCHC 34.4 g/dl (32.0-35.9) 08/16/16 07:00 RDW 16.7 % (11.9-15.9) H 08/16/16 07:00 Plt Count 72 K/MM3 (134-434) L 08/16/16 07:00 MPV 10.4 fl (7.5-11.1) D 08/16/16 07:00 CMP Sodium 140 mmol/L (136-145) 08/16/16 07:00 Potassium 3.7 mmol/L (3.5-5.1) 08/16/16 07:00 Chloride 102 mmol/L (98-107) 08/16/16 07:00 Carbon Dioxide 27 mmol/L (21-32) 08/16/16 07:00 Anion Gap 11 (8-16) 08/16/16 07:00 BUN 62 mg/dL (7-18) H D 08/16/16 07:00 Creatinine 4.3 mg/dL (0.7-1.3) H D 08/16/16 07:00 Creat Clearance w eGFR 13.13 (>60) 08/16/16 07:00 Calcium 8.1 mg/dL (8.5-10.1) L 08/16/16 07:00 Total Bilirubin 2.1 mg/dL (0.2-1.0) H 08/16/16 07:00 AST 60 U/L (15-37) H D 08/16/16 07:00 ALT 15 U/L (12-78) D 08/16/16 07:00 Alkaline Phosphatase 427 U/L (45-117) H 08/16/16 07:00 Total Protein 4.5 g/dl (6.4-8.2) L 08/16/16 07:00 Albumin 1.9 g/dl (3.4-5.0) L 08/16/16 07:00 Active Medications Generic Name Dose Route Start Last Admin Trade Name Freq PRN Reason Stop Dose Admin Albuterol/Ipratropium 1 amp 08/15/16 17:51 Duoneb - NEB Q6H PRN SHORTNESS OF BREATH Famotidine/Sodium Chloride 50 mls @ 100 mls/hr 08/15/16 22:00 08/16/16 10:44 Pepcid 20 Mg Premixed Ivpb - IVPB 100 mls/hr BID SUBHA Administration Cefazolin Sodium 0.5 gm/ 50 mls @ 100 mls/hr 08/15/16 22:00 08/16/16 10:00 Dextrose IVPB 100 mls/hr BID SUBHA Administration Ursodiol 300 mg 08/15/16 22:00 08/16/16 10:44 Actigal - PO 300 mg BID SUBHA Administration Assessment: 85 year old male with HTN, CAD s/p stent placement, aortic stenosis , porcine valve replacement (ASA 81mg and Plavix 75mg), 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 Plan: 1. Septic shock 2/2 acute cholangitis - ERCP s/p balloon sphincteroplasty and biliary stent placement 08/07 - continue cefazolin 1 more days (12/02) 2. Acute Choledocholithiasis with acute cholangitis - s/p ERCP w/ biliary stent - Will need repeat ERCP to remove remaining stones once stable - Continue Ursodiol BID - Surgery following 3. 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 with hx of right nephrectomy - HD yesterday - Will hold on HD for today, if improved will pull shiley tomorrow - Stop bicarb - Discussed with renal 4. 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 CAD s/p stent placement and demand ischemia, s/p TAVR for - Hold ASA/plavix for above 6. Acute respiratory failure - s/p extubation 08/14 - Stable on NC 7. Lactic acidosis - Resolved 8. Hypotension - BP controlled - Hold antihypertensives for now 9. Nutrition - Per speech and swallow advance to dysphagia pureed with thickened liquids 10. Acute blood loss anemia - Hgb stable, appropriate rise - Transfuse 2UPRBC 08/15 - Trend hgb Visit type - Emergency Visit Emergency Visit: Yes ED Registration Date: 08/06/16 Care time: The patient presented to the Emergency Department on the above date and was hospitalized for further evaluation of their emergent condition. - New Patient This patient is new to me today: No - Critical Care Critical Care patient: No
--- NOTE | 2016-08-16 12:00 | PN ---
Progress Note, Physician Chief Complaint: ID Day 10 antibiotics Cefazolin Alert in NAD and offers no complaints - Current Medication List Current Medications: Active Medications Albuterol/Ipratropium (Duoneb -) 1 amp NEB Q6H PRN PRN Reason: SHORTNESS OF BREATH Famotidine/Sodium Chloride (Pepcid 20 Mg Premixed Ivpb -) 50 mls @ 100 mls/hr IVPB BID [facility] Last Admin: 08/16/16 10:44 Dose: 100 mls/hr Cefazolin Sodium 0.5 gm/ (Dextrose) 50 mls @ 100 mls/hr IVPB BID [facility] Last Admin: 08/16/16 10:00 Dose: 100 mls/hr Ursodiol (Actigal -) 300 mg PO BID [facility] Last Admin: 08/16/16 10:44 Dose: 300 mg - Objective Vital Signs: Vital Signs Temperature 97.6 F 08/16/16 09:00 Pulse Rate 61 08/16/16 09:00 Respiratory Rate 16 08/16/16 09:00 Blood Pressure 118/52 08/16/16 09:00 O2 Sat by Pulse Oximetry (%) 100 08/15/16 21:00 Constitutional: Yes: Well Nourished, No Distress Eyes: Yes: WNL, Conjunctiva Clear HENT: Yes: WNL, Atraumatic Neck: Yes: WNL, Supple Cardiovascular: Yes: Regular Rate and Rhythm, S1, S2 Respiratory: Yes: WNL, Regular, CTA Bilaterally Gastrointestinal: Yes: WNL, Normal Bowel Sounds, Soft. No: Tenderness Edema: Yes Labs: CBC, BMP 08/16/16 07:00 08/16/16 07:00 INR, PTT INR 1.07 (0.82-1.09) 08/13/16 05:35 Fibrinogen 463.0 mg/dL (238-498) D 08/13/16 05:35 Problem List - Problems (1) Biliary sepsis Code(s): K83.0 - CHOLANGITIS (2) Bacteremia due to Gram-negative bacteria Code(s): R78.81 - BACTEREMIA (3) Thrombocytopenia Code(s): D69.6 - THROMBOCYTOPENIA, UNSPECIFIED Assessment/Plan Microbiology 08/10/16 19:20 Blood - Peripheral Venous Blood Culture - Final NO GROWTH AFTER 5 DAYS INCUBATION 08/10/16 18:50 Blood - Peripheral Venous Blood Culture - Final NO GROWTH AFTER 5 DAYS INCUBATION 08/07/16 10:42 Blood - Peripheral Venous Blood Culture - Final Escherichia Coli 08/07/16 10:40 Blood - Peripheral Venous Blood Culture - Final Escherichia Coli 08/06/16 18:30 Abdomen Gram Stain - Final 08/06/16 18:30 Abdomen Wound Culture - Final Staphylococcus Coagulase Neg Diphtheroid/Corynebacterium Streptococcus Viridans Laboratory Tests 08/16/16 08/16/16 07:00 07:00 WBC 9.1 Hgb 9.2 L D Hct 26.7 L D Plt Count 72 L BUN 62 H D Creat Clearance w eGFR 13.13 ASSESSMENT GRAM NEGATIVE BACTEREMIA BILIARY SOURCE DAY 10 PLAN STOP ANTIBIOTIC TOMORROW BIBI SCOTT
--- NOTE | 2016-08-16 12:00 | PN ---
Progress Note (short form) - Note Progress Note: No acute events Awake Vital Signs Period Temp Pulse Resp BP Sys/Hinkle Pulse Ox Last 24 Hr 96.9 F-98.7 F 61-75 16-20 101-129/43-63 100 Abd soft CBC,CMP WBC 9.1 K/mm3 (4.0-10.0) 08/16/16 07:00 RBC 3.07 M/mm3 (4.00-5.60) L 08/16/16 07:00 Hgb 9.2 GM/dL (11.7-16.9) L D 08/16/16 07:00 Hct 26.7 % (35.4-49) L D 08/16/16 07:00 MCV 86.8 fl (80-96) 08/16/16 07:00 MCHC 34.4 g/dl (32.0-35.9) 08/16/16 07:00 RDW 16.7 % (11.9-15.9) H 08/16/16 07:00 Plt Count 72 K/MM3 (134-434) L 08/16/16 07:00 MPV 10.4 fl (7.5-11.1) D 08/16/16 07:00 Neutrophils % 79.4 % (42.8-82.8) 08/16/16 07:00 Lymphocytes % 7.2 % (8-40) L 08/16/16 07:00 Monocytes % 6.9 % (3.8-10.2) 08/16/16 07:00 Eosinophils % 5.7 % (0-4.5) H 08/16/16 07:00 Basophils % 0.8 % (0-2.0) 08/16/16 07:00 Band Neutrophils 11.0 % (0-10) H D 08/08/16 05:15 Metamyelocytes 5 % (0-2) H D 08/07/16 20:30 Myelocytes 9 % (0-2) H D 08/07/16 20:30 Differential Comment Manual diff done 08/09/16 08:30 Dohle Bodies 1+ 08/08/16 05:15 Platelet Estimate Decreased (NORMAL) 08/09/16 08:30 Platelet Comment No clumping noted 08/08/16 05:15 Polychromasia Few 08/08/16 05:15 Hypochromic-Microcytic Few 08/08/16 05:15 Sodium 140 mmol/L (136-145) 08/16/16 07:00 Potassium 3.7 mmol/L (3.5-5.1) 08/16/16 07:00 Chloride 102 mmol/L (98-107) 08/16/16 07:00 Carbon Dioxide 27 mmol/L (21-32) 08/16/16 07:00 Anion Gap 11 (8-16) 08/16/16 07:00 BUN 62 mg/dL (7-18) H D 08/16/16 07:00 Creatinine 4.3 mg/dL (0.7-1.3) H D 08/16/16 07:00 Creat Clearance w eGFR 13.13 (>60) 08/16/16 07:00 Random Glucose 62 mg/dL (74-106) L D 08/16/16 07:00 Lactic Acid 1.684 mmol/L (0.4-2.0) 08/08/16 13:20 Calcium 8.1 mg/dL (8.5-10.1) L 08/16/16 07:00 Phosphorus 4.4 mg/dL (2.5-4.9) D 08/14/16 05:30 Magnesium 2.0 mg/dL (1.8-2.4) 08/14/16 05:30 Total Bilirubin 2.1 mg/dL (0.2-1.0) H 08/16/16 07:00 Direct Bilirubin 1.4 mg/dL (0.0-0.2) H D 08/14/16 05:30 AST 60 U/L (15-37) H D 08/16/16 07:00 ALT 15 U/L (12-78) D 08/16/16 07:00 Alkaline Phosphatase 427 U/L (45-117) H 08/16/16 07:00 Creatine Kinase 60 IU/L (39-308) 08/11/16 00:00 Creatine Kinase Index 11.8 % (0.0-5.0) H* 08/08/16 13:20 CK-MB (CK-2) 18.446 ng/ml (0.5-3.6) H 08/08/16 13:20 CK-MB (CK-2) Rel Index Cancelled 08/08/16 13:20 Troponin I 1.73 ng/ml (0.00-0.05) H* 08/11/16 05:15 C-Reactive Protein 21.5 MG/DL (0.00-0.3) H 08/08/16 05:15 Total Protein 4.5 g/dl (6.4-8.2) L 08/16/16 07:00 Albumin 1.9 g/dl (3.4-5.0) L 08/16/16 07:00 Total Amylase 49 U/L (25-115) D 08/08/16 05:15 Lipase 116 U/L (73-393) 08/08/16 05:15 Antibiotics Await repeat ERCP Problem List - Problems (1) Umbilical discharge Code(s): R19.8 - [facility] SYMPTOMS AND SIGNS INVOLVING THE DGSTV SYS AND ABDOMEN
--- NOTE | 2016-08-16 13:51 | PN ---
Progress Note, Physician History of Present Illness: No abd pain, afebrile. - Current Medication List Current Medications: Active Medications Albuterol/Ipratropium (Duoneb -) 1 amp NEB Q6H PRN PRN Reason: SHORTNESS OF BREATH Famotidine/Sodium Chloride (Pepcid 20 Mg Premixed Ivpb -) 50 mls @ 100 mls/hr IVPB BID [facility] Last Admin: 08/16/16 10:44 Dose: 100 mls/hr Cefazolin Sodium 0.5 gm/ (Dextrose) 50 mls @ 100 mls/hr IVPB BID [facility] Stop: 08/17/16 10:30 Last Admin: 08/16/16 10:00 Dose: 100 mls/hr Ursodiol (Actigal -) 300 mg PO BID [facility] Last Admin: 08/16/16 10:44 Dose: 300 mg - Objective Vital Signs: Vital Signs Temperature 97.6 F 08/16/16 09:00 Pulse Rate 61 08/16/16 09:00 Respiratory Rate 16 08/16/16 09:00 Blood Pressure 118/52 08/16/16 09:00 O2 Sat by Pulse Oximetry (%) 100 08/15/16 21:00 Constitutional: Yes: No Distress, Calm Neck: Yes: Supple Cardiovascular: Yes: Regular Rate and Rhythm Respiratory: Yes: Regular, Diminished Gastrointestinal: Yes: Normal Bowel Sounds, Soft Edema: Yes Edema: LLE: Trace, RLE: Trace Labs: CBC, BMP 08/16/16 07:00 08/16/16 07:00 INR, PTT INR 1.07 (0.82-1.09) 08/13/16 05:35 Fibrinogen 463.0 mg/dL (238-498) D 08/13/16 05:35 Problem List - Problems (1) CRISS (acute kidney injury) Code(s): N17.9 - ACUTE KIDNEY FAILURE, UNSPECIFIED (2) Bacteremia due to Gram-negative bacteria Code(s): R78.81 - BACTEREMIA (3) Biliary sepsis Code(s): K83.0 - CHOLANGITIS (4) CAD (coronary artery disease) Code(s): I25.10 - ATHSCL HEART DISEASE OF [place] CORONARY ARTERY W/O ANG PCTRS Qualifiers: Coronary Disease-Associated Artery/Lesion type: unspecified vessel or lesion type [place] vs. transplanted heart: [place] heart Associated angina: without angina Qualified Code(s): I25.10 - Atherosclerotic heart disease of [place] coronary artery without angina pectoris (5) CKD (chronic kidney disease) Code(s): N18.9 - CHRONIC KIDNEY DISEASE, UNSPECIFIED (6) Calculus of common duct with obstruction Code(s): K80.51 - CALCULUS OF BILE DUCT W/O CHOLANGITIS OR CHOLECYST W OBST (7) History of percutaneous coronary intervention Code(s): Z98.890 - OTHER SPECIFIED POSTPROCEDURAL STATES (8) S/P ERCP Code(s): Z98.890 - OTHER SPECIFIED POSTPROCEDURAL STATES (9) Thrombocytopenia Code(s): D69.6 - THROMBOCYTOPENIA, UNSPECIFIED (10) Acute hypoxemic respiratory failure Code(s): J96.01 - ACUTE RESPIRATORY FAILURE WITH HYPOXIA (11) Gram negative septic shock Code(s): A41.50 - GRAM-NEGATIVE SEPSIS, UNSPECIFIED R65.21 - SEVERE SEPSIS WITH SEPTIC SHOCK (12) Left bundle branch block Code(s): I44.7 - LEFT BUNDLE-BRANCH BLOCK, UNSPECIFIED (13) Demand ischemia Code(s): I24.8 - OTHER FORMS OF ACUTE ISCHEMIC HEART DISEASE (14) Anemia Code(s): D64.9 - ANEMIA, UNSPECIFIED Qualifiers: Anemia type: unspecified type Qualified Code(s): D64.9 - Anemia, unspecified Assessment/Plan 1. s/p hypoxemic respiratory failure 2. Biliary septic shock (E. coli), acute cholangitis post ERCP, balloon sphincteroplasty and stent placement with leukocytosis and lactic acidosis resolved 3. Post TAVR for severe 4. CAD, S/P PCI/stent with demand ischemic injury 5. Severe biventricular dysfunction referable to sepsis 6. H/O Hypertension, but hypotensive requiring pressors - since weaned off 7. Renal CA S/P right nephrectomy 8. Acute on CKD referable to septic shock and ATN - currently on HD 9. Thrombocytopenia due to sepsis 10. Anemia of chronic disease PLAN: 1. Wean FIO2 to maintain saO2 2. Monitor renal function - Diuretics and HD as per Renal 3. Complete antibiotics course, plan for eventual stone removal once more stable 4. Resume carvedilol 3.125 bid and Lipitor 20 qhs, resume ASA once Plt count recovers 5. DVT and GI prophylaxis
--- NOTE | 2016-08-16 14:38 | PN ---
Progress Note, Physician History of Present Illness: Pt seen and examined at bedside. He is more awake and alert today. He is now in the medical cespedes. - Current Medication List Current Medications: Active Medications Albuterol/Ipratropium (Duoneb -) 1 amp NEB Q6H PRN PRN Reason: SHORTNESS OF BREATH Atorvastatin Calcium (Lipitor -) 20 mg PO HS SUBHA Carvedilol (Coreg -) 3.125 mg PO BID [facility] Famotidine/Sodium Chloride (Pepcid 20 Mg Premixed Ivpb -) 50 mls @ 100 mls/hr IVPB BID [facility] Last Admin: 08/16/16 10:44 Dose: 100 mls/hr Cefazolin Sodium 0.5 gm/ (Dextrose) 50 mls @ 100 mls/hr IVPB BID [facility] Stop: 08/17/16 10:30 Last Admin: 08/16/16 10:00 Dose: 100 mls/hr Ursodiol (Actigal -) 300 mg PO BID [facility] Last Admin: 08/16/16 10:44 Dose: 300 mg - Objective Vital Signs: Vital Signs Temperature 98.4 F 08/16/16 14:31 Pulse Rate 69 08/16/16 14:31 Respiratory Rate 16 08/16/16 14:31 Blood Pressure 119/60 08/16/16 14:31 O2 Sat by Pulse Oximetry (%) 100 08/15/16 21:00 Constitutional: Yes: Calm Eyes: Yes: Conjunctiva Clear HENT: Yes: Atraumatic Neck: Yes: Supple Cardiovascular: Yes: S1, S2 Respiratory: Yes: CTA Bilaterally Gastrointestinal: Yes: Normal Bowel Sounds, Soft Genitourinary: Yes: [place] Present Musculoskeletal: Yes: WNL Edema: No Neurological: Yes: Oriented Labs: CBC, BMP 08/16/16 07:00 08/16/16 07:00 INR, PTT INR 1.07 (0.82-1.09) 08/13/16 05:35 Fibrinogen 463.0 mg/dL (238-498) D 08/13/16 05:35 Problem List - Problems (1) CAD (coronary artery disease) Code(s): I25.10 - ATHSCL HEART DISEASE OF [place] CORONARY ARTERY W/O ANG PCTRS Qualifiers: Coronary Disease-Associated Artery/Lesion type: unspecified vessel or lesion type [place] vs. transplanted heart: [place] heart Associated angina: without angina Qualified Code(s): I25.10 - Atherosclerotic heart disease of [place] coronary artery without angina pectoris (2) Calculus of common duct with obstruction Code(s): K80.51 - CALCULUS OF BILE DUCT W/O CHOLANGITIS OR CHOLECYST W OBST (3) Choledocholithiasis Code(s): K80.50 - CALCULUS OF BILE DUCT W/O CHOLANGITIS OR CHOLECYST W/O OBST (4) Renal cancer Code(s): C64.9 - MALIGNANT NEOPLASM OF UNSP KIDNEY, EXCEPT RENAL PELVIS Qualifiers: Laterality: right Qualified Code(s): C64.1 - Malignant neoplasm of right kidney, except renal pelvis (5) CRISS (acute kidney injury) Code(s): N17.9 - ACUTE KIDNEY FAILURE, UNSPECIFIED (6) CKD (chronic kidney disease) Code(s): N18.9 - CHRONIC KIDNEY DISEASE, UNSPECIFIED Assessment/Plan Current Medications Generic Name Dose Route Start Last Admin Trade Name Freq PRN Reason Stop Dose Admin Albuterol/Ipratropium 1 amp 08/15/16 17:51 Duoneb - NEB Q6H PRN SHORTNESS OF BREATH Atorvastatin Calcium 20 mg 08/16/16 22:00 Lipitor - PO HS SUBHA Carvedilol 3.125 mg 08/16/16 14:00 Coreg - PO BID [facility] Famotidine/Sodium Chloride 50 mls @ 100 mls/hr 08/15/16 22:00 08/16/16 10:44 Pepcid 20 Mg Premixed Ivpb - IVPB 100 mls/hr BID SUBHA Administration Cefazolin Sodium 0.5 gm/ 50 mls @ 100 mls/hr 08/15/16 22:00 08/16/16 10:00 Dextrose IVPB 08/17/16 10:30 100 mls/hr BID SUBHA Administration Ursodiol 300 mg 08/15/16 22:00 08/16/16 10:44 Actigal - PO 300 mg BID SUBHA Administration Impression 1. CKD stage 3 2. CRISS 3. choledocholithiasis 4. CAD 5. hx of Renal Cell Cancer s/p nephroectomy 6. aortic stenosis 7. sepsis 8. acute respiratory failure requiring intubation 9. NSTEMI 10. bacteremia Plan - pt tolerated HD yesterday - monitor urine output - hg is improved - repeat bmp in am - will evaluate for HD in am - hold of lasix today - discussed with medical team Dr Medina
[2016-08-16] MEDS: CARVEDILOL 3.125 MG TABLET (FP) PO SCH ×2 (14:40→22:04)
[2016-08-16] MEDS: ATORVASTATIN CA 20 MG TABLET (FP) PO SCH (22:04)
[2016-08-17 08:03] LABS: BASOPHIL 1.3 % (0-2.0); EOSINOPHIL 6.2 % (0-4.5); MCH 29.6 pg (25.7-33.7); MCHC 33.7 g/dl (32.0-35.9); MEAN CELL VOLUME 87.7 fl (80-96); MEAN PLT VOLUME 9.9 fl (7.5-11.1); NEUTROPHILS 75.6 % (42.8-82.8); PLATELET COUNT 91 K/MM3 (134-434); RDW 16.8 % (11.9-15.9)
[2016-08-17] MEDS: ALBUTEROL SO4 2.5/IPRATROPIUM 0.5 INH SOL 3 ML VIAL.NEB. NEB PRN (08:40)
[2016-08-17 08:43] LABS: CALCIUM 8.2 mg/dL (8.5-10.1)
[2016-08-17 08:45] LABS: COCKROFT - GAULT 15.35; CREATININE 4.5 mg/dL (0.7-1.3)
[2016-08-17] MEDS ORDERED: PT OWN MED DRAWER 7, Y5N ONE (09:57)
[2016-08-17] MEDS: URSODIOL 300 MG CAPSULE PO SCH ×2 (10:01→22:25)
[2016-08-17] MEDS: FAMOTIDINE 20 MG/50 ML IVPB 50 ML IVPB SCH ×2 (10:01→22:19)
[2016-08-17] MEDS: CEFAZOLIN 0.5 GM in DEXTROSE 5%-WATER - 50 ML IVPB SCH (10:01)
[2016-08-17] MEDS: CARVEDILOL 3.125 MG TABLET (FP) PO SCH (10:01)
--- NOTE | 2016-08-17 11:58 | PN ---
Progress Note, Physician History of Present Illness: Pt seen and examined at bedside. He is more awake and alert today. He complains of weakness. - Current Medication List Current Medications: Active Medications Albuterol/Ipratropium (Duoneb -) 1 amp NEB Q6H PRN PRN Reason: SHORTNESS OF BREATH Last Admin: 08/17/16 08:40 Dose: 1 amp Atorvastatin Calcium (Lipitor -) 20 mg PO HS [facility] Last Admin: 08/16/16 22:04 Dose: 20 mg Carvedilol (Coreg -) 3.125 mg PO BID [facility] Last Admin: 08/17/16 10:01 Dose: 3.125 mg Famotidine/Sodium Chloride (Pepcid 20 Mg Premixed Ivpb -) 50 mls @ 100 mls/hr IVPB BID [facility] Last Admin: 08/17/16 10:01 Dose: 100 mls/hr Ursodiol (Actigal -) 300 mg PO BID [facility] Last Admin: 08/17/16 10:01 Dose: 300 mg - Objective Vital Signs: Vital Signs Temperature 97.7 F 08/17/16 10:00 Pulse Rate 57 L 08/17/16 10:00 Respiratory Rate 18 08/17/16 10:00 Blood Pressure 123/47 08/17/16 10:00 O2 Sat by Pulse Oximetry (%) 100 08/16/16 21:00 Constitutional: Yes: Calm Eyes: Yes: Conjunctiva Clear HENT: Yes: Atraumatic Neck: Yes: Supple Cardiovascular: Yes: S1, S2 Respiratory: Yes: On Nasal O2 Gastrointestinal: Yes: Soft Genitourinary: Yes: Marshall Present Musculoskeletal: Yes: Muscle Weakness Edema: Yes Edema: LUE: 1+, RUE: 1+, LLE: 1+, RLE: 1+ Neurological: Yes: Oriented Labs: CBC, BMP 08/17/16 06:30 08/17/16 06:30 INR, PTT INR 1.07 (0.82-1.09) 08/13/16 05:35 Fibrinogen 463.0 mg/dL (238-498) D 08/13/16 05:35 Problem List - Problems (1) CAD (coronary artery disease) Code(s): I25.10 - ATHSCL HEART DISEASE OF [place] CORONARY ARTERY W/O ANG PCTRS Qualifiers: Coronary Disease-Associated Artery/Lesion type: unspecified vessel or lesion type [place] vs. transplanted heart: [place] heart Associated angina: without angina Qualified Code(s): I25.10 - Atherosclerotic heart disease of [place] coronary artery without angina pectoris (2) Calculus of common duct with obstruction Code(s): K80.51 - CALCULUS OF BILE DUCT W/O CHOLANGITIS OR CHOLECYST W OBST (3) Choledocholithiasis Code(s): K80.50 - CALCULUS OF BILE DUCT W/O CHOLANGITIS OR CHOLECYST W/O OBST (4) Renal cancer Code(s): C64.9 - MALIGNANT NEOPLASM OF UNSP KIDNEY, EXCEPT RENAL PELVIS Qualifiers: Laterality: right Qualified Code(s): C64.1 - Malignant neoplasm of right kidney, except renal pelvis (5) CRISS (acute kidney injury) Code(s): N17.9 - ACUTE KIDNEY FAILURE, UNSPECIFIED (6) CKD (chronic kidney disease) Code(s): N18.9 - CHRONIC KIDNEY DISEASE, UNSPECIFIED Assessment/Plan Current Medications Generic Name Dose Route Start Last Admin Trade Name Freq PRN Reason Stop Dose Admin Albuterol/Ipratropium 1 amp 08/15/16 17:51 08/17/16 08:40 Duoneb - NEB 1 amp Q6H PRN Administration SHORTNESS OF BREATH Atorvastatin Calcium 20 mg 08/16/16 22:00 08/16/16 22:04 Lipitor - PO 20 mg HS SUBHA Administration Carvedilol 3.125 mg 08/16/16 14:00 08/17/16 10:01 Coreg - PO 3.125 mg BID SUBHA Administration Famotidine/Sodium Chloride 50 mls @ 100 mls/hr 08/15/16 22:00 08/17/16 10:01 Pepcid 20 Mg Premixed Ivpb - IVPB 100 mls/hr BID SUBHA Administration Ursodiol 300 mg 08/15/16 22:00 08/17/16 10:01 Actigal - PO 300 mg BID SUBHA Administration Impression 1. CKD stage 3 2. CRISS 3. choledocholithiasis 4. CAD 5. hx of Renal Cell Cancer s/p nephroectomy 6. aortic stenosis 7. sepsis 8. acute respiratory failure requiring intubation 9. NSTEMI 10. bacteremia Plan - will arrange for HD today - can remove shiley after HD - observe renal function over the next few day= - monitor urine output - repeat bmp in am - hold of lasix today Dr Medina
--- NOTE | 2016-08-17 12:07 | PN ---
Progress Note, Physician History of Present Illness: No abd pain, afebrile, feels debilitated. - Current Medication List Current Medications: Active Medications Albuterol/Ipratropium (Duoneb -) 1 amp NEB Q6H PRN PRN Reason: SHORTNESS OF BREATH Last Admin: 08/17/16 08:40 Dose: 1 amp Atorvastatin Calcium (Lipitor -) 20 mg PO HS [facility] Last Admin: 08/16/16 22:04 Dose: 20 mg Carvedilol (Coreg -) 3.125 mg PO BID [facility] Last Admin: 08/17/16 10:01 Dose: 3.125 mg Famotidine/Sodium Chloride (Pepcid 20 Mg Premixed Ivpb -) 50 mls @ 100 mls/hr IVPB BID [facility] Last Admin: 08/17/16 10:01 Dose: 100 mls/hr Ursodiol (Actigal -) 300 mg PO BID [facility] Last Admin: 08/17/16 10:01 Dose: 300 mg - Objective Vital Signs: Vital Signs Temperature 97.7 F 08/17/16 10:00 Pulse Rate 57 L 08/17/16 10:00 Respiratory Rate 18 08/17/16 10:00 Blood Pressure 123/47 08/17/16 10:00 O2 Sat by Pulse Oximetry (%) 100 08/16/16 21:00 Constitutional: Yes: No Distress, Calm Neck: Yes: Supple Cardiovascular: Yes: Regular Rate and Rhythm Respiratory: Yes: Regular, Diminished, On Nasal O2 Gastrointestinal: Yes: Normal Bowel Sounds, Soft Edema: No Labs: CBC, BMP 08/17/16 06:30 08/17/16 06:30 INR, PTT INR 1.07 (0.82-1.09) 08/13/16 05:35 Fibrinogen 463.0 mg/dL (238-498) D 08/13/16 05:35 Problem List - Problems (1) CRISS (acute kidney injury) Code(s): N17.9 - ACUTE KIDNEY FAILURE, UNSPECIFIED (2) Bacteremia due to Gram-negative bacteria Code(s): R78.81 - BACTEREMIA (3) Biliary sepsis Code(s): K83.0 - CHOLANGITIS (4) CAD (coronary artery disease) Code(s): I25.10 - ATHSCL HEART DISEASE OF [place] CORONARY ARTERY W/O ANG PCTRS Qualifiers: Qualified Code(s): I25.10 - Atherosclerotic heart disease of [place] coronary artery without angina pectoris (5) CKD (chronic kidney disease) Code(s): N18.9 - CHRONIC KIDNEY DISEASE, UNSPECIFIED (6) Calculus of common duct with obstruction Code(s): K80.51 - CALCULUS OF BILE DUCT W/O CHOLANGITIS OR CHOLECYST W OBST (7) History of percutaneous coronary intervention Code(s): Z98.890 - OTHER SPECIFIED POSTPROCEDURAL STATES (8) S/P ERCP Code(s): Z98.890 - OTHER SPECIFIED POSTPROCEDURAL STATES (9) Thrombocytopenia Code(s): D69.6 - THROMBOCYTOPENIA, UNSPECIFIED (10) Acute hypoxemic respiratory failure Code(s): J96.01 - ACUTE RESPIRATORY FAILURE WITH HYPOXIA (11) Gram negative septic shock Code(s): A41.50 - GRAM-NEGATIVE SEPSIS, UNSPECIFIED R65.21 - SEVERE SEPSIS WITH SEPTIC SHOCK (12) Left bundle branch block Code(s): I44.7 - LEFT BUNDLE-BRANCH BLOCK, UNSPECIFIED (13) Demand ischemia Code(s): I24.8 - OTHER FORMS OF ACUTE ISCHEMIC HEART DISEASE (14) Anemia Code(s): D64.9 - ANEMIA, UNSPECIFIED Qualifiers: Qualified Code(s): D64.9 - Anemia, unspecified Assessment/Plan 1. s/p hypoxemic respiratory failure 2. Biliary septic shock (E. coli), acute cholangitis post ERCP, balloon sphincteroplasty and stent placement with leukocytosis and lactic acidosis resolved 3. Post TAVR for severe 4. CAD, S/P PCI/stent with demand ischemic injury 5. Severe biventricular dysfunction referable to sepsis 6. H/O Hypertension, but hypotensive requiring pressors - since weaned off 7. Renal CA S/P right nephrectomy 8. Acute on CKD referable to septic shock and ATN - currently on HD 9. 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 Anemia of chronic disease PLAN: 1. Wean FIO2 to maintain saO2, BD as needed 2. Monitor renal function - Diuretics and HD as per Renal 3. Completed antibiotics course, plan for eventual stone removal once more stable 4. Increase carvedilol 6.25 bid and Lipitor 20 qhs, resume ASA once Plt count recovers 5. DVT and GI prophylaxis
--- NOTE | 2016-08-17 12:21 | PN ---
Physical Exam: SUBJECTIVE: Patient seen and examined. He wishes he could go home. He has no acute complaints. OBJECTIVE: Vital Signs Period Temp Pulse Resp BP Sys/Hinkle Pulse Ox Last 24 Hr 97.7 F-98.4 F 57-69 16-20 119-140/47-61 100 PE Neuro:alert, awake, response time improving Pulm: diminished scattered rhonchi, + NC CV: s1 s2 3/6 systolic murmur Abd: RUQ soft mass, non tender, non distended : stone Ext: + 1 edema, warm Laboratory Results - last 24 hr 08/17/16 08/17/16 06:30 06:30 WBC 8.0 RBC 3.07 L Hgb 9.1 L Hct 27.0 L MCV 87.7 MCHC 33.7 RDW 16.8 H Plt Count 91 L D MPV 9.9 Neutrophils % 75.6 Lymphocytes % 9.1 D Monocytes % 7.8 Eosinophils % 6.2 H Basophils % 1.3 Sodium 141 Potassium 4.0 Chloride 103 Carbon Dioxide 28 Anion Gap 10 BUN 67 H Creatinine 4.5 H Random Glucose 72 L Calcium 8.2 L Active Medications Generic Name Dose Route Start Last Admin Trade Name Freq PRN Reason Stop Dose Admin Albuterol/Ipratropium 1 amp 08/15/16 17:51 08/17/16 08:40 Duoneb - NEB 1 amp Q6H PRN Administration SHORTNESS OF BREATH Atorvastatin Calcium 20 mg 08/16/16 22:00 08/16/16 22:04 Lipitor - PO 20 mg HS SUBHA Administration Carvedilol 3.125 mg 08/16/16 14:00 08/17/16 10:01 Coreg - PO 3.125 mg BID SUBHA Administration Famotidine/Sodium Chloride 50 mls @ 100 mls/hr 08/15/16 22:00 08/17/16 10:01 Pepcid 20 Mg Premixed Ivpb - IVPB 100 mls/hr BID SUBHA Administration Ursodiol 300 mg 08/15/16 22:00 08/17/16 10:01 Actigal - PO 300 mg BID SUBHA Administration Assessment: 85 year old male with HTN, CAD s/p stent placement, aortic stenosis , porcine valve replacement (ASA 81mg and Plavix 75mg), 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 Plan: 1. Septic shock 2/2 acute cholangitis - ERCP s/p balloon sphincteroplasty and biliary stent placement 08/07 - Completed cefazolin 10 days today 2. Acute Choledocholithiasis with acute cholangitis - s/p ERCP w/ biliary stent - Will need repeat ERCP to remove remaining stones once stable - Continue Ursodiol BID - Surgery following 3. 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 with hx of right nephrectomy - HD today - Remove shiley following HD - Hold lasix 4. 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 CAD s/p stent placement and demand ischemia, s/p TAVR for - Will restart once plates stable ASA/plavix 6. Acute respiratory failure - s/p extubation 08/14 - Stable on NC 7. Lactic acidosis - Resolved 8. Hypotension - Coreg 6.25mg BID 9. Nutrition - Per speech and swallow advance to dysphagia pureed with thickened liquids 10. Acute blood loss anemia - Hgb stable, appropriate rise - Transfuse 2UPRBC 08/15 - Trend hgb Visit type - Emergency Visit Emergency Visit: Yes ED Registration Date: 08/06/16 Care time: The patient presented to the Emergency Department on the above date and was hospitalized for further evaluation of their emergent condition. - New Patient This patient is new to me today: No - Critical Care Critical Care patient: No
[2016-08-17] MEDS: ATORVASTATIN CA 20 MG TABLET (FP) PO SCH (22:25)
[2016-08-17] MEDS: CARVEDILOL 6.25 MG TABLET (FP) PO SCH (22:25)
[2016-08-18 07:35] LABS: BASOPHIL 0.7 % (0-2.0); EOSINOPHIL 5.5 % (0-4.5); MCH 29.7 pg (25.7-33.7); MCHC 33.7 g/dl (32.0-35.9); MEAN CELL VOLUME 88.1 fl (80-96); NEUTROPHILS 71.7 % (42.8-82.8); PLATELET COUNT 99 K/MM3 (134-434); WHITE BLOOD COUNT 6.2 K/mm3 (4.0-10.0)
[2016-08-18 08:26] LABS: CALCIUM 8.1 mg/dL (8.5-10.1)
[2016-08-18 08:30] LABS: COCKROFT - GAULT 22.41; CREATININE 3.1 mg/dL (0.7-1.3); TOT PROT 4.8 g/dl (6.4-8.2)
--- NOTE | 2016-08-18 10:12 | PN ---
Progress Note (short form) - Note Progress Note: RENAL Pt is awake and alert appears comfortable confused Last Vital Signs Temp Pulse Resp BP Pulse Ox 97.9 F 61 20 122/50 98 08/18/16 06:18 08/18/16 06:18 08/18/16 06:18 08/18/16 06:18 08/17/16 21:00 HEENT has a shiley catheter on left side of neck lungs clear anteriorly cvs s1s2 rr +YANDY abd soft ext +edema neuro awake CBC, BMP 08/18/16 06:00 08/18/16 06:00 Current Medications Generic Name Dose Route Start Last Admin Trade Name Freq PRN Reason Stop Dose Admin Albuterol/Ipratropium 1 amp 08/15/16 17:51 08/17/16 08:40 Duoneb - NEB 1 amp Q6H PRN Administration SHORTNESS OF BREATH Atorvastatin Calcium 20 mg 08/16/16 22:00 08/17/16 22:25 Lipitor - PO 20 mg HS SUBHA Administration Carvedilol 6.25 mg 08/17/16 12:21 08/17/16 22:25 Coreg - PO 6.25 mg BID SUBHA Administration Famotidine/Sodium Chloride 50 mls @ 100 mls/hr 08/15/16 22:00 08/17/16 22:19 Pepcid 20 Mg Premixed Ivpb - IVPB 100 mls/hr BID SUBHA Administration Ursodiol 300 mg 08/15/16 22:00 08/17/16 22:25 Actigal - PO 300 mg BID SUBHA Administration Impression 1. CKD stage 3 2. CRISS- with normal appearing solitary kidney 3. choledocholithiasis 4. CAD 5. hx of Renal Cell Cancer s/p nephroectomy 6. aortic stenosis 7. sepsis 8. acute respiratory failure requiring intubation 9. NSTEMI 10. bacteremia Plan - - please remove shiley - observe renal function over the next few day= - monitor urine output - repeat bmp in am - repeat chest xray MV
[2016-08-18] MEDS: CARVEDILOL 6.25 MG TABLET (FP) PO SCH ×2 (10:13→21:45)
[2016-08-18] MEDS: FAMOTIDINE 20 MG/50 ML IVPB 50 ML IVPB SCH ×2 (10:13→21:45)
[2016-08-18] MEDS: URSODIOL 300 MG CAPSULE PO SCH ×2 (10:14→21:45)
--- NOTE | 2016-08-18 11:30 | PN ---
Progress Note (short form) - Note Progress Note: Resting in NAD. No acute events overnight. No CP or SOB. Mildly confused. Intake & Output 08/15/16 08/16/16 08/17/16 08/18/16 23:59 23:59 23:59 23:59 Intake Total 150 568 100 218 Output Total 1950 1300 800 800 Balance -1800 -732 -700 -582 Weight 215 lb 2.738 oz 207 lb 208 lb 2 oz Last Vital Signs Temp Pulse Resp BP Pulse Ox 97.9 F 61 20 122/50 98 08/18/16 06:18 08/18/16 06:18 08/18/16 06:18 08/18/16 06:18 08/17/16 21:00 Active Medications Albuterol/Ipratropium (Duoneb -) 1 amp NEB Q6H PRN PRN Reason: SHORTNESS OF BREATH Last Admin: 08/17/16 08:40 Dose: 1 amp Atorvastatin Calcium (Lipitor -) 20 mg PO HS [facility] Last Admin: 08/17/16 22:25 Dose: 20 mg Carvedilol (Coreg -) 6.25 mg PO BID [facility] Last Admin: 08/18/16 10:13 Dose: 6.25 mg Famotidine/Sodium Chloride (Pepcid 20 Mg Premixed Ivpb -) 50 mls @ 100 mls/hr IVPB BID [facility] Last Admin: 08/18/16 10:13 Dose: 100 mls/hr Ursodiol (Actigal -) 300 mg PO BID [facility] Last Admin: 08/18/16 10:14 Dose: 300 mg Gen: awake and interactive, NAD Heart: RRR Lung: decreased breath sounds at the bases Abd: soft, nontender Ext: no edema Laboratory Results - last 24 hr 08/18/16 08/18/16 06:00 06:00 WBC 6.2 RBC 3.03 L Hgb 9.0 L Hct 26.7 L MCV 88.1 MCHC 33.7 RDW 17.0 H Plt Count 99 L MPV 10.0 Neutrophils % 71.7 Lymphocytes % 13.1 D Monocytes % 9.0 Eosinophils % 5.5 H Basophils % 0.7 Sodium 144 Potassium 3.8 Chloride 107 Carbon Dioxide 29 Anion Gap 8 BUN 38 H D Creatinine 3.1 H D Creat Clearance w eGFR 19.15 Random Glucose 80 Calcium 8.1 L Total Bilirubin 2.0 H AST 51 H ALT 11 L D Alkaline Phosphatase 404 H Total Protein 4.8 L Albumin 2.0 L ASSESSMENT AND PLAN: Acute Cholangitis Gram Negative Bacteremia s/p ERCP/sphincteroplasty/stent placement Acute Hypoxic Respiratory Failure Septic Shock Acute on Chronic Renal Failure Lactic Acidosis CAD +Troponins likely Demand Ischemia s/p TAVR for severe Aortic Stenosis Thrombocytopenia - Left IJ access was removed without incident - ABX per ID - DVT/GI prophylaxis - Normal transfusion thresholds. - Aspiration precautions Dr Ledesma
--- NOTE | 2016-08-18 12:50 | PN ---
Progress Note, Physician History of Present Illness: No abd pain, afebrile, feels debilitated. - Current Medication List Current Medications: Active Medications Albuterol/Ipratropium (Duoneb -) 1 amp NEB Q6H PRN PRN Reason: SHORTNESS OF BREATH Last Admin: 08/17/16 08:40 Dose: 1 amp Atorvastatin Calcium (Lipitor -) 20 mg PO HS [facility] Last Admin: 08/17/16 22:25 Dose: 20 mg Carvedilol (Coreg -) 6.25 mg PO BID [facility] Last Admin: 08/18/16 10:13 Dose: 6.25 mg Famotidine/Sodium Chloride (Pepcid 20 Mg Premixed Ivpb -) 50 mls @ 100 mls/hr IVPB BID [facility] Last Admin: 08/18/16 10:13 Dose: 100 mls/hr Ursodiol (Actigal -) 300 mg PO BID [facility] Last Admin: 08/18/16 10:14 Dose: 300 mg - Objective Vital Signs: Vital Signs Temperature 97.9 F 08/18/16 06:18 Pulse Rate 61 08/18/16 06:18 Respiratory Rate 20 08/18/16 06:18 Blood Pressure 122/50 08/18/16 06:18 O2 Sat by Pulse Oximetry (%) 98 08/17/16 21:00 Constitutional: Yes: No Distress, Calm Neck: Yes: Supple Cardiovascular: Yes: Regular Rate and Rhythm Respiratory: Yes: Regular, Diminished, On Nasal O2 Gastrointestinal: Yes: Normal Bowel Sounds, Soft Edema: No Labs: CBC, BMP 08/18/16 06:00 08/18/16 06:00 INR, PTT INR 1.07 (0.82-1.09) 08/13/16 05:35 Fibrinogen 463.0 mg/dL (238-498) D 08/13/16 05:35 Problem List - Problems (1) CRISS (acute kidney injury) Code(s): N17.9 - ACUTE KIDNEY FAILURE, UNSPECIFIED (2) Bacteremia due to Gram-negative bacteria Code(s): R78.81 - BACTEREMIA (3) Biliary sepsis Code(s): K83.0 - CHOLANGITIS (4) CAD (coronary artery disease) Code(s): I25.10 - ATHSCL HEART DISEASE OF [place] CORONARY ARTERY W/O ANG PCTRS Qualifiers: Coronary Disease-Associated Artery/Lesion type: unspecified vessel or lesion type [place] vs. transplanted heart: [place] heart Associated angina: without angina Qualified Code(s): I25.10 - Atherosclerotic heart disease of [place] coronary artery without angina pectoris (5) CKD (chronic kidney disease) Code(s): N18.9 - CHRONIC KIDNEY DISEASE, UNSPECIFIED (6) Calculus of common duct with obstruction Code(s): K80.51 - CALCULUS OF BILE DUCT W/O CHOLANGITIS OR CHOLECYST W OBST (7) History of percutaneous coronary intervention Code(s): Z98.890 - OTHER SPECIFIED POSTPROCEDURAL STATES (8) S/P ERCP Code(s): Z98.890 - OTHER SPECIFIED POSTPROCEDURAL STATES (9) Thrombocytopenia Code(s): D69.6 - THROMBOCYTOPENIA, UNSPECIFIED (10) Acute hypoxemic respiratory failure Code(s): J96.01 - ACUTE RESPIRATORY FAILURE WITH HYPOXIA (11) Gram negative septic shock Code(s): A41.50 - GRAM-NEGATIVE SEPSIS, UNSPECIFIED R65.21 - SEVERE SEPSIS WITH SEPTIC SHOCK (12) Left bundle branch block Code(s): I44.7 - LEFT BUNDLE-BRANCH BLOCK, UNSPECIFIED (13) Demand ischemia Code(s): I24.8 - OTHER FORMS OF ACUTE ISCHEMIC HEART DISEASE (14) Anemia Code(s): D64.9 - ANEMIA, UNSPECIFIED Qualifiers: Anemia type: unspecified type Qualified Code(s): D64.9 - Anemia, unspecified Assessment/Plan 1. s/p hypoxemic respiratory failure 2. Biliary septic shock (E. coli), acute cholangitis post ERCP, balloon sphincteroplasty and stent placement with leukocytosis and lactic acidosis resolved 3. Post TAVR for severe 4. CAD, S/P PCI/stent with demand ischemic injury 5. Severe biventricular dysfunction referable to sepsis 6. Hypertension 7. Renal CA S/P right nephrectomy 8. Acute on CKD referable to septic shock and ATN - recovering off HD 9. 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 Anemia of chronic disease PLAN: 1. Wean FIO2 to maintain saO2, BD as needed 2. Monitor renal recovery - Diuretics and d/ramesh HD as per Renal 3. Completed antibiotics course, plan for eventual stone removal once more stable 4. Continue carvedilol 6.25 bid and Lipitor 20 qhs, resume ASA once Plt count recovers 5. DVT and GI prophylaxis
--- NOTE | 2016-08-18 14:14 | PN ---
Physical Exam: SUBJECTIVE: Patient seen and examined. His mental status is improving he is following direction. Family at bedside, he is tolerating PO Events: - Shiley removed OBJECTIVE: Vital Signs Period Temp Pulse Resp BP Sys/Hinkle Pulse Ox Last 24 Hr 97.9 F-98.3 F 58-74 18-20 122-153/50-73 98 PE Neuro: alert, awake, response time improving, however still confused at times HEENT: Left shiley site dressing CDI Pulm: diminished scattered rhonchi, + NC CV: s1 s2 rrr Abd: s nt nd + bs : stone Ext: warm, no le edema Laboratory Results - last 24 hr 08/15/16 08/18/16 08/18/16 12:25 06:00 06:00 WBC 6.2 RBC 3.03 L Hgb 9.0 L Hct 26.7 L MCV 88.1 MCHC 33.7 RDW 17.0 H Plt Count 99 L MPV 10.0 Neutrophils % 71.7 Lymphocytes % 13.1 D Monocytes % 9.0 Eosinophils % 5.5 H Basophils % 0.7 Sodium 144 Potassium 3.8 Chloride 107 Carbon Dioxide 29 Anion Gap 8 BUN 38 H D Creatinine 3.1 H D Creat Clearance w eGFR 19.15 Random Glucose 80 Calcium 8.1 L Total Bilirubin 2.0 H AST 51 H ALT 11 L D Alkaline Phosphatase 404 H Total Protein 4.8 L Albumin 2.0 L Blood Type A POSITIVE Antibody Screen Negative Crossmatch See Detail Active Medications Generic Name Dose Route Start Last Admin Trade Name Freq PRN Reason Stop Dose Admin Albuterol/Ipratropium 1 amp 08/15/16 17:51 08/17/16 08:40 Duoneb - NEB 1 amp Q6H PRN Administration SHORTNESS OF BREATH Atorvastatin Calcium 20 mg 08/16/16 22:00 08/17/16 22:25 Lipitor - PO 20 mg HS SUBHA Administration Carvedilol 6.25 mg 08/17/16 12:21 08/18/16 10:13 Coreg - PO 6.25 mg BID SUBHA Administration Famotidine/Sodium Chloride 50 mls @ 100 mls/hr 08/15/16 22:00 08/18/16 10:13 Pepcid 20 Mg Premixed Ivpb - IVPB 100 mls/hr BID SUBHA Administration Ursodiol 300 mg 08/15/16 22:00 08/18/16 10:14 Actigal - PO 300 mg BID SUBHA Administration Assessment: 85 year old male with HTN, CAD s/p stent placement, aortic stenosis , porcine valve replacement (ASA 81mg and Plavix 75mg), 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 Plan: 1. Septic shock 2/2 acute cholangitis - ERCP s/p balloon sphincteroplasty and biliary stent placement 08/07 - Completed x10 days Cefazolin 2. Acute Choledocholithiasis with acute cholangitis - s/p ERCP w/ biliary stent - Will need repeat ERCP to remove remaining stones once stable - Continue Ursodiol BID - Surgery following 3. 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 with hx of right nephrectomy - HD yesterday - Shiley removed today - Monitor renal fxn 4. Thrombocytopenia - Due to sepsis and +HIT antibody - Platelets up trending - 1Uplts 08/14 - Hold chemical AC 5. CAD s/p stent placement and demand ischemia, s/p TAVR for - Will restart once plates stable ASA/plavix 6. Acute respiratory failure - s/p extubation 08/14 - Stable on NC 7. Lactic acidosis - Resolved 8. Hypotension - Coreg 6.25mg BID 9. Nutrition - Per speech and swallow advance to dysphagia pureed with thickened liquids 10. Acute blood loss anemia - Transfused 2UPRBC 08/15 - Hgb stable Visit type - Emergency Visit Emergency Visit: Yes ED Registration Date: 08/06/16 Care time: The patient presented to the Emergency Department on the above date and was hospitalized for further evaluation of their emergent condition. - New Patient This patient is new to me today: No - Critical Care Critical Care patient: No
[2016-08-18] MEDS: ATORVASTATIN CA 20 MG TABLET (FP) PO SCH (21:45)
[2016-08-19] MEDS: ALBUTEROL SO4 2.5/IPRATROPIUM 0.5 INH SOL 3 ML VIAL.NEB. NEB PRN (06:00)
[2016-08-19] MEDS: FAMOTIDINE 20 MG/50 ML IVPB 50 ML IVPB SCH ×2 (09:35→21:29)
[2016-08-19] MEDS: CARVEDILOL 6.25 MG TABLET (FP) PO SCH ×2 (09:35→21:29)
[2016-08-19] MEDS: URSODIOL 300 MG CAPSULE PO SCH ×2 (09:35→21:29)
--- NOTE | 2016-08-19 10:39 | PN ---
Progress Note (short form) - Note Progress Note: No acute events Awake Pain controlled Vital Signs Period Temp Pulse Resp BP Sys/Hinkle Pulse Ox Last 24 Hr 98.0 F-98.9 F 53-59 18-20 116-140/56-60 97 Abd soft, NT CBC,CMP WBC 6.2 K/mm3 (4.0-10.0) 08/18/16 06:00 RBC 3.03 M/mm3 (4.00-5.60) L 08/18/16 06:00 Hgb 9.0 GM/dL (11.7-16.9) L 08/18/16 06:00 Hct 26.7 % (35.4-49) L 08/18/16 06:00 MCV 88.1 fl (80-96) 08/18/16 06:00 MCHC 33.7 g/dl (32.0-35.9) 08/18/16 06:00 RDW 17.0 % (11.9-15.9) H 08/18/16 06:00 Plt Count 99 K/MM3 (134-434) L 08/18/16 06:00 MPV 10.0 fl (7.5-11.1) 08/18/16 06:00 Neutrophils % 71.7 % (42.8-82.8) 08/18/16 06:00 Lymphocytes % 13.1 % (8-40) D 08/18/16 06:00 Monocytes % 9.0 % (3.8-10.2) 08/18/16 06:00 Eosinophils % 5.5 % (0-4.5) H 08/18/16 06:00 Basophils % 0.7 % (0-2.0) 08/18/16 06:00 Band Neutrophils 11.0 % (0-10) H D 08/08/16 05:15 Metamyelocytes 5 % (0-2) H D 08/07/16 20:30 Myelocytes 9 % (0-2) H D 08/07/16 20:30 Differential Comment Manual diff done 08/09/16 08:30 Dohle Bodies 1+ 08/08/16 05:15 Platelet Estimate Decreased (NORMAL) 08/09/16 08:30 Platelet Comment No clumping noted 08/08/16 05:15 Polychromasia Few 08/08/16 05:15 Hypochromic-Microcytic Few 08/08/16 05:15 Sodium 144 mmol/L (136-145) 08/18/16 06:00 Potassium 3.8 mmol/L (3.5-5.1) 08/18/16 06:00 Chloride 107 mmol/L (98-107) 08/18/16 06:00 Carbon Dioxide 29 mmol/L (21-32) 08/18/16 06:00 Anion Gap 8 (8-16) 08/18/16 06:00 BUN 38 mg/dL (7-18) H D 08/18/16 06:00 Creatinine 3.1 mg/dL (0.7-1.3) H D 08/18/16 06:00 Creat Clearance w eGFR 19.15 (>60) 08/18/16 06:00 Random Glucose 80 mg/dL (74-106) 08/18/16 06:00 Lactic Acid 1.684 mmol/L (0.4-2.0) 08/08/16 13:20 Calcium 8.1 mg/dL (8.5-10.1) L 08/18/16 06:00 Phosphorus 4.4 mg/dL (2.5-4.9) D 08/14/16 05:30 Magnesium 2.0 mg/dL (1.8-2.4) 08/14/16 05:30 Total Bilirubin 2.0 mg/dL (0.2-1.0) H 08/18/16 06:00 Direct Bilirubin 1.4 mg/dL (0.0-0.2) H D 08/14/16 05:30 AST 51 U/L (15-37) H 08/18/16 06:00 ALT 11 U/L (12-78) L D 08/18/16 06:00 Alkaline Phosphatase 404 U/L (45-117) H 08/18/16 06:00 Creatine Kinase 60 IU/L (39-308) 08/11/16 00:00 Creatine Kinase Index 11.8 % (0.0-5.0) H* 08/08/16 13:20 CK-MB (CK-2) 18.446 ng/ml (0.5-3.6) H 08/08/16 13:20 CK-MB (CK-2) Rel Index Cancelled 08/08/16 13:20 Troponin I 1.73 ng/ml (0.00-0.05) H* 08/11/16 05:15 C-Reactive Protein 21.5 MG/DL (0.00-0.3) H 08/08/16 05:15 Total Protein 4.8 g/dl (6.4-8.2) L 08/18/16 06:00 Albumin 2.0 g/dl (3.4-5.0) L 08/18/16 06:00 Total Amylase 49 U/L (25-115) D 08/08/16 05:15 Lipase 116 U/L (73-393) 08/08/16 05:15 Antibiotics Await repeat ERCP for CBD stone removal Problem List - Problems (1) Umbilical discharge Code(s): R19.8 - [facility] SYMPTOMS AND SIGNS INVOLVING THE DGSTV SYS AND ABDOMEN
--- NOTE | 2016-08-19 10:54 | PN ---
Physical Exam: SUBJECTIVE: Patient seen and examined. He is improving, ingratiating conversation more. His and him have been together for 65 years, he says OBJECTIVE: Vital Signs Period Temp Pulse Resp BP Sys/Hinkle Pulse Ox Last 24 Hr 98.0 F-98.9 F 53-59 18-20 116-140/56-60 97 PE Neuro: alert, awake, cn 2-12 intact HEENT: Left shiley site dressing CDI Pulm: clear anteriorly, +nc CV: s1 s2 rrr Abd: s nt nd + bs : stone Ext: warm, trace r pedal edema, + DP pulses Laboratory Results - last 24 hr 08/15/16 12:25 Blood Type A POSITIVE Antibody Screen Negative Crossmatch See Detail Active Medications Generic Name Dose Route Start Last Admin Trade Name Freq PRN Reason Stop Dose Admin Albuterol/Ipratropium 1 amp 08/15/16 17:51 08/19/16 06:00 Duoneb - NEB 1 amp Q6H PRN Administration SHORTNESS OF BREATH Atorvastatin Calcium 20 mg 08/16/16 22:00 08/18/16 21:45 Lipitor - PO 20 mg HS SUBHA Administration Carvedilol 6.25 mg 08/17/16 12:21 08/19/16 09:35 Coreg - PO 6.25 mg BID SUBHA Administration Famotidine/Sodium Chloride 50 mls @ 100 mls/hr 08/15/16 22:00 08/19/16 09:35 Pepcid 20 Mg Premixed Ivpb - IVPB 100 mls/hr BID SUBHA Administration Ursodiol 300 mg 08/15/16 22:00 08/19/16 09:35 Actigal - PO 300 mg BID SUBHA Administration Antibiotics - Cefazolin 10 days Assessment: 85 year old male with HTN, CAD s/p stent placement, aortic stenosis , porcine valve replacement (ASA 81mg and Plavix 75mg), 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 Plan: 1. Septic shock 2/2 acute cholangitis - ERCP s/p balloon sphincteroplasty and biliary stent placement 08/07 - Stable off antibiotics 2. Acute Choledocholithiasis with acute cholangitis - ERCP w/ biliary stent 08/06 - Will need repeat ERCP to remove remaining stones once stable per GI - Continue Ursodiol BID 3. 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 with hx of right nephrectomy - Shiley removed 08/18 - Maintain tsone 4. Thrombocytopenia - Due to sepsis and +HIT antibody - 1Uplts 08/14 - Hold chemical AC 5. CAD s/p stent placement and demand ischemia, s/p TAVR for - Will restart once plates stable ASA/plavix - Coreg 6.25 BID 6. Acute respiratory failure - Resolved; extubated 08/14 - Stable on NC 7. Lactic acidosis - Resolved 8. Acute blood loss anemia - Transfused 2UPRBC 08/15 9. Hypotension - Resolved 10. Physical Therapy - Daily OOB to chair Visit type - Emergency Visit Emergency Visit: Yes ED Registration Date: 08/06/16 Care time: The patient presented to the Emergency Department on the above date and was hospitalized for further evaluation of their emergent condition. - New Patient This patient is new to me today: No - Critical Care Critical Care patient: No
--- NOTE | 2016-08-19 11:08 | PN ---
Progress Note (short form) - Note Progress Note: RENAL Pt is awake and alert appears comfortable confused Last Vital Signs Temp Pulse Resp BP Pulse Ox 98.0 F 58 L 18 116/56 97 08/19/16 06:23 08/19/16 06:23 08/19/16 06:23 08/19/16 06:23 08/18/16 21:00 HEENT has a shiley catheter on left side of neck lungs clear anteriorly cvs s1s2 rr +YANDY abd soft ext +edema neuro awake, hearing impaired Current Medications Generic Name Dose Route Start Last Admin Trade Name Freq PRN Reason Stop Dose Admin Albuterol/Ipratropium 1 amp 08/15/16 17:51 08/17/16 08:40 Duoneb - NEB 1 amp Q6H PRN Administration SHORTNESS OF BREATH Atorvastatin Calcium 20 mg 08/16/16 22:00 08/17/16 22:25 Lipitor - PO 20 mg HS SUBHA Administration Carvedilol 6.25 mg 08/17/16 12:21 08/17/16 22:25 Coreg - PO 6.25 mg BID SUBHA Administration Famotidine/Sodium Chloride 50 mls @ 100 mls/hr 08/15/16 22:00 08/17/16 22:19 Pepcid 20 Mg Premixed Ivpb - IVPB 100 mls/hr BID SUBHA Administration Ursodiol 300 mg 08/15/16 22:00 08/17/16 22:25 Actigal - PO 300 mg BID SUBHA Administration CBC, BMP 08/18/16 06:00 08/18/16 06:00 Impression 1. CKD stage 3 2. CRISS- with normal appearing solitary kidney 3. choledocholithiasis 4. CAD, new congestive changes 5. hx of Renal Cell Cancer s/p nephrectomy 6. aortic stenosis 7. sepsis 8. acute respiratory failure requiring intubation 9. NSTEMI 10. bacteremia Plan - oob to chair - monitor urine output - repeat bmp in am - repeat chest xray MV
--- NOTE | 2016-08-19 11:51 | PN ---
Progress Note (short form) - Note Progress Note: Resting in NAD. No acute events overnight. No CP or SOB. Mildly confused. CXR : increasing vascular congestion Intake & Output 08/16/16 08/17/16 08/18/16 08/19/16 23:59 23:59 23:59 23:59 Intake Total 568 100 438 Output Total 9954 331 4780 300 Balance -732 -700 -1062 -300 Weight 207 lb 208 lb 2 oz 209 lb 4.8 oz Last Vital Signs Temp Pulse Resp BP Pulse Ox 98.0 F 58 L 18 116/56 97 08/19/16 06:23 08/19/16 06:23 08/19/16 06:23 08/19/16 06:23 08/18/16 21:00 Active Medications Albuterol/Ipratropium (Duoneb -) 1 amp NEB Q6H PRN PRN Reason: SHORTNESS OF BREATH Last Admin: 08/19/16 06:00 Dose: 1 amp Atorvastatin Calcium (Lipitor -) 20 mg PO [facility] Last Admin: 08/18/16 21:45 Dose: 20 mg Carvedilol (Coreg -) 6.25 mg PO BID [facility] Last Admin: 08/19/16 09:35 Dose: 6.25 mg Famotidine/Sodium Chloride (Pepcid 20 Mg Premixed Ivpb -) 50 mls @ 100 mls/hr IVPB BID [facility] Last Admin: 08/19/16 09:35 Dose: 100 mls/hr Ursodiol (Actigal -) 300 mg PO BID [facility] Last Admin: 08/19/16 09:35 Dose: 300 mg Gen: awake and interactive, NAD Heart: RRR Lung: decreased breath sounds at the bases Abd: soft, nontender Ext: no edema Laboratory Results - last 24 hr 08/15/16 12:25 Blood Type A POSITIVE Antibody Screen Negative Crossmatch See Detail ASSESSMENT AND PLAN: Acute Cholangitis Gram Negative Bacteremia s/p ERCP/sphincteroplasty/stent placement Acute Hypoxic Respiratory Failure Septic Shock Acute on Chronic Renal Failure Lactic Acidosis CAD +Troponins likely Demand Ischemia s/p TAVR for severe Aortic Stenosis Thrombocytopenia - Start PO ABX - ABX per ID - DVT/GI prophylaxis - Normal transfusion thresholds. - Aspiration precautions Dr Ledesma
--- NOTE | 2016-08-19 13:18 | PN ---
Progress Note, Physician History of Present Illness: No abd pain, afebrile, tolerating diet. - Current Medication List Current Medications: Active Medications Albuterol/Ipratropium (Duoneb -) 1 amp NEB Q6H PRN PRN Reason: SHORTNESS OF BREATH Last Admin: 08/19/16 06:00 Dose: 1 amp Atorvastatin Calcium (Lipitor -) 20 mg PO HS [facility] Last Admin: 08/18/16 21:45 Dose: 20 mg Carvedilol (Coreg -) 6.25 mg PO BID [facility] Last Admin: 08/19/16 09:35 Dose: 6.25 mg Furosemide (Lasix -) 60 mg PO DAILY [facility] Famotidine/Sodium Chloride (Pepcid 20 Mg Premixed Ivpb -) 50 mls @ 100 mls/hr IVPB BID [facility] Last Admin: 08/19/16 09:35 Dose: 100 mls/hr Ursodiol (Actigal -) 300 mg PO BID [facility] Last Admin: 08/19/16 09:35 Dose: 300 mg - Objective Vital Signs: Vital Signs Temperature 98.0 F 08/19/16 06:23 Pulse Rate 58 L 08/19/16 06:23 Respiratory Rate 18 08/19/16 06:23 Blood Pressure 116/56 08/19/16 06:23 O2 Sat by Pulse Oximetry (%) 97 08/18/16 21:00 Constitutional: Yes: No Distress, Calm Neck: Yes: Supple Cardiovascular: Yes: Regular Rate and Rhythm Respiratory: Yes: Regular, Diminished, On Nasal O2 Gastrointestinal: Yes: Normal Bowel Sounds, Soft Edema: No Labs: CBC, BMP 08/18/16 06:00 08/18/16 06:00 INR, PTT INR 1.07 (0.82-1.09) 08/13/16 05:35 Fibrinogen 463.0 mg/dL (238-498) D 08/13/16 05:35 - ....Imaging Chest X-ray: Report Reviewed (New congestion, bilateral effusion) Problem List - Problems (1) CRISS (acute kidney injury) Code(s): N17.9 - ACUTE KIDNEY FAILURE, UNSPECIFIED (2) Bacteremia due to Gram-negative bacteria Code(s): R78.81 - BACTEREMIA (3) Biliary sepsis Code(s): K83.0 - CHOLANGITIS (4) CAD (coronary artery disease) Code(s): I25.10 - ATHSCL HEART DISEASE OF [place] CORONARY ARTERY W/O ANG PCTRS Qualifiers: Coronary Disease-Associated Artery/Lesion type: unspecified vessel or lesion type [place] vs. transplanted heart: [place] heart Associated angina: without angina Qualified Code(s): I25.10 - Atherosclerotic heart disease of [place] coronary artery without angina pectoris (5) CKD (chronic kidney disease) Code(s): N18.9 - CHRONIC KIDNEY DISEASE, UNSPECIFIED (6) Calculus of common duct with obstruction Code(s): K80.51 - CALCULUS OF BILE DUCT W/O CHOLANGITIS OR CHOLECYST W OBST (7) History of percutaneous coronary intervention Code(s): Z98.890 - OTHER SPECIFIED POSTPROCEDURAL STATES (8) S/P ERCP Code(s): Z98.890 - OTHER SPECIFIED POSTPROCEDURAL STATES (9) Thrombocytopenia Code(s): D69.6 - THROMBOCYTOPENIA, UNSPECIFIED (10) Acute hypoxemic respiratory failure Code(s): J96.01 - ACUTE RESPIRATORY FAILURE WITH HYPOXIA (11) Gram negative septic shock Code(s): A41.50 - GRAM-NEGATIVE SEPSIS, UNSPECIFIED R65.21 - SEVERE SEPSIS WITH SEPTIC SHOCK (12) Left bundle branch block Code(s): I44.7 - LEFT BUNDLE-BRANCH BLOCK, UNSPECIFIED (13) Demand ischemia Code(s): I24.8 - OTHER FORMS OF ACUTE ISCHEMIC HEART DISEASE (14) Anemia Code(s): D64.9 - ANEMIA, UNSPECIFIED Qualifiers: Anemia type: unspecified type Qualified Code(s): D64.9 - Anemia, unspecified Assessment/Plan 1. s/p hypoxemic respiratory failure 2. Biliary septic shock (E. coli), acute cholangitis post ERCP, balloon sphincteroplasty and stent placement with leukocytosis and lactic acidosis resolved 3. Post TAVR for severe 4. CAD, S/P PCI/stent with demand ischemic injury 5. Severe biventricular failure with pleural effusions 6. Hypertension 7. Renal CA S/P right nephrectomy 8. Acute on CKD referable to septic shock and ATN - recovering off HD 9. 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 Anemia of chronic disease PLAN: 1. Wean FIO2 to maintain saO2, BD as needed 2. Monitor renal recovery - Diuretic regimen and d/ramesh HD as per Renal 3. Completed antibiotics course, plan for eventual stone removal once more stable 4. Continue carvedilol 6.25 bid and Lipitor 20 qhs, resume ASA once Plt count recovers 5. DVT and GI prophylaxis
[2016-08-19] MEDS: FUROSEMIDE 40 MG TABLET (FP) PO SCH (15:40)
[2016-08-19] MEDS: ATORVASTATIN CA 20 MG TABLET (FP) PO SCH (21:29)
[2016-08-20 08:22] LABS: MCH 29.8 pg (25.7-33.7); MCHC 33.3 g/dl (32.0-35.9); MEAN CELL VOLUME 89.5 fl (80-96); MEAN PLT VOLUME 9.9 fl (7.5-11.1); PLATELET COUNT 121 K/MM3 (134-434); RDW 16.7 % (11.9-15.9); WHITE BLOOD COUNT 5.3 K/mm3 (4.0-10.0)
[2016-08-20 08:33] LABS: ALBUMIN 2.1 g/dl (3.4-5.0); BILIRUBIN,TOTAL 1.8 mg/dL (0.2-1.0); CALCIUM 8.2 mg/dL (8.5-10.1); COCKROFT - GAULT 19.78; CREATININE 3.6 mg/dL (0.7-1.3); TOT PROT 4.9 g/dl (6.4-8.2)
--- NOTE | 2016-08-20 09:35 | PN ---
Progress Note (short form) - Note Progress Note: PULMONARY RESTING COMFORTABLY NO OVERALL CLINICAL CHANGE IN EXAM LABS/MEDS/NOTES/MICRO/IMAGING REVIEWED Acute Cholangitis Gram Negative Bacteremia s/p ERCP/sphincteroplasty/stent placement Acute Hypoxic Respiratory Failure Septic Shock Acute on Chronic Renal Failure Lactic Acidosis CAD +Troponins likely Demand Ischemia s/p TAVR for severe Aortic Stenosis Thrombocytopenia - ABX per ID - DVT/GI prophylaxis - Normal transfusion thresholds. - Aspiration precautions Lacie PAN MD
--- NOTE | 2016-08-20 10:24 | PN ---
Progress Note (short form) - Note Progress Note: RENAL Pt is awake and alert appears comfortable sitting up having breakfast Last Vital Signs Temp Pulse Resp BP Pulse Ox 98.1 F 61 20 135/59 93 L 08/20/16 06:00 08/20/16 06:00 08/20/16 06:00 08/20/16 06:00 08/19/16 13:25 HEENT has a shiley catheter on left side of neck lungs clear anteriorly, right basilar crackles cvs s1s2 rr +YANDY abd soft ext +edema reduced neuro awake, hearing impaired CBC, BMP 08/20/16 06:30 08/20/16 06:30 Current Medications Generic Name Dose Route Start Last Admin Trade Name Freq PRN Reason Stop Dose Admin Albuterol/Ipratropium 1 amp 08/15/16 17:51 08/19/16 06:00 Duoneb - NEB 1 amp Q6H PRN Administration SHORTNESS OF BREATH Atorvastatin Calcium 20 mg 08/16/16 22:00 08/19/16 21:29 Lipitor - PO 20 mg HS [facility] Administration Carvedilol 6.25 mg 08/17/16 12:21 08/19/16 21:29 Coreg - PO 6.25 mg BID [facility] Administration Furosemide 60 mg 08/19/16 12:00 08/19/16 15:40 Lasix - PO 60 mg DAILY [facility] Administration Famotidine/Sodium Chloride 50 mls @ 100 mls/hr 08/15/16 22:00 08/19/16 21:29 Pepcid 20 Mg Premixed Ivpb - IVPB 100 mls/hr BID [facility] Administration Ursodiol 300 mg 08/15/16 22:00 08/19/16 21:29 Actigal - PO 300 mg BID [facility] Administration Impression 1. CKD stage 3 2. CRISS- with normal appearing solitary kidney 3. choledocholithiasis 4. CAD, new congestive changes 5. hx of Renal Cell Cancer s/p nephrectomy 6. aortic stenosis 7. sepsis 8. acute respiratory failure requiring intubation 9. NSTEMI 10. bacteremia Plan has no acute indication for hd would continue to monitor avoid nephrotoxins and hypotension If pt will need surgery, his kidney function will likely worsen MV
[2016-08-20] MEDS: URSODIOL 300 MG CAPSULE PO SCH ×2 (10:43→21:20)
[2016-08-20] MEDS: CARVEDILOL 6.25 MG TABLET (FP) PO SCH ×2 (10:44→21:20)
[2016-08-20] MEDS: FAMOTIDINE 20 MG/50 ML IVPB 50 ML IVPB SCH ×2 (10:44→21:20)
[2016-08-20] MEDS: FUROSEMIDE 40 MG TABLET (FP) PO SCH (10:47)
--- NOTE | 2016-08-20 11:18 | PN ---
Physical Exam: SUBJECTIVE: Patient seen and examined. He is oob to chair. No acute issues. OBJECTIVE: Vital Signs Period Temp Pulse Resp BP Sys/Hinkle Pulse Ox Last 24 Hr 98.1 F-98.6 F 58-64 16-20 116-142/47-65 93 PE Neuro: alert, awake, cn 2-12 intact HEENT: Left shiley site dressing CDI Pulm: r base crackles, +nc CV: s1 s2 rrr Abd: s nt nd + bs : stone Ext: no le edema, warm Laboratory Results - last 24 hr 08/20/16 08/20/16 06:30 06:30 WBC 5.3 RBC 3.15 L Hgb 9.4 L Hct 28.2 L MCV 89.5 MCHC 33.3 RDW 16.7 H Plt Count 121 L D MPV 9.9 Sodium 147 H Potassium 3.5 Chloride 108 H Carbon Dioxide 29 Anion Gap 10 BUN 39 H Creatinine 3.6 H Creat Clearance w eGFR 16.12 Random Glucose 89 Calcium 8.2 L Total Bilirubin 1.8 H AST 33 D ALT 11 L Alkaline Phosphatase 370 H Total Protein 4.9 L Albumin 2.1 L Active Medications Generic Name Dose Route Start Last Admin Trade Name Freq PRN Reason Stop Dose Admin Albuterol/Ipratropium 1 amp 08/15/16 17:51 08/19/16 06:00 Duoneb - NEB 1 amp Q6H PRN Administration SHORTNESS OF BREATH Atorvastatin Calcium 20 mg 08/16/16 22:00 08/19/16 21:29 Lipitor - PO 20 mg HS [facility] Administration Carvedilol 6.25 mg 08/17/16 12:21 08/20/16 10:44 Coreg - PO 6.25 mg BID [facility] Administration Furosemide 40 mg 08/20/16 10:25 Lasix - PO DAILY [facility] Famotidine/Sodium Chloride 50 mls @ 100 mls/hr 08/15/16 22:00 08/20/16 10:44 Pepcid 20 Mg Premixed Ivpb - IVPB 100 mls/hr BID [facility] Administration Ursodiol 300 mg 08/15/16 22:00 08/20/16 10:43 Actigal - PO 300 mg BID [facility] Administration Antibiotics - Cefazolin 10 days Assessment: 85 year old male with HTN, CAD s/p stent placement, aortic stenosis , porcine valve replacement (ASA 81mg and Plavix 75mg), 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 Plan: 1. Acute Choledocholithiasis with acute cholangitis, ERCP w/ biliary stent 08/06 - Will need repeat ERCP to remove remaining stones once stable per GI - Continue Ursodiol BID - Surgery/GI to decide day 2. 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 with hx of right nephrectomy - Shiley removed 08/18 - Maintain stone - Lasix 40mg po day 3. Septic shock 2/ acute cholangitis - Resolving - ERCP s/p balloon sphincteroplasty and biliary stent placement 08/07 - Surgery and GI to decide date 4. Thrombocytopenia - Due to sepsis and +HIT antibody - 1Uplts 08/14 - Hold chemical AC 5. CAD s/p stent placement and demand ischemia, s/p TAVR for - Will restart once plates stable ASA/plavix - Coreg 6.25 BID 6. Acute respiratory failure - Resolved; extubated 08/14 - Stable on NC 7. Lactic acidosis - Resolved 8. Acute blood loss anemia - Transfused 2UPRBC 08/15 9. Hypotension - Resolved 10. Physical Therapy - Daily OOB to chair Visit type - Emergency Visit Emergency Visit: Yes ED Registration Date: 08/06/16 Care time: The patient presented to the Emergency Department on the above date and was hospitalized for further evaluation of their emergent condition. - New Patient This patient is new to me today: No - Critical Care Critical Care patient: No
--- NOTE | 2016-08-20 13:07 | PN ---
Progress Note, Physician History of Present Illness: No abd pain, afebrile, tolerating diet. - Current Medication List Current Medications: Active Medications Albuterol/Ipratropium (Duoneb -) 1 amp NEB Q6H PRN PRN Reason: SHORTNESS OF BREATH Last Admin: 08/19/16 06:00 Dose: 1 amp Atorvastatin Calcium (Lipitor -) 20 mg PO HS [facility] Last Admin: 08/19/16 21:29 Dose: 20 mg Carvedilol (Coreg -) 6.25 mg PO BID [facility] Last Admin: 08/20/16 10:44 Dose: 6.25 mg Furosemide (Lasix -) 40 mg PO DAILY [facility] Famotidine/Sodium Chloride (Pepcid 20 Mg Premixed Ivpb -) 50 mls @ 100 mls/hr IVPB BID [facility] Last Admin: 08/20/16 10:44 Dose: 100 mls/hr Ursodiol (Actigal -) 300 mg PO BID [facility] Last Admin: 08/20/16 10:43 Dose: 300 mg - Objective Vital Signs: Vital Signs Temperature 97.6 F 08/20/16 10:00 Pulse Rate 59 L 08/20/16 10:00 Respiratory Rate 18 08/20/16 10:00 Blood Pressure 118/52 08/20/16 10:00 O2 Sat by Pulse Oximetry (%) 93 L 08/19/16 13:25 Constitutional: Yes: No Distress, Calm Neck: Yes: Supple Cardiovascular: Yes: Regular Rate and Rhythm Respiratory: Yes: Regular, Diminished, On Nasal O2 Gastrointestinal: Yes: Normal Bowel Sounds, Soft Edema: Yes Edema: LLE: Trace, RLE: Trace Labs: CBC, BMP 08/20/16 06:30 08/20/16 06:30 INR, PTT INR 1.07 (0.82-1.09) 08/13/16 05:35 Fibrinogen 463.0 mg/dL (238-498) D 08/13/16 05:35 Problem List - Problems (1) CRISS (acute kidney injury) Code(s): N17.9 - ACUTE KIDNEY FAILURE, UNSPECIFIED (2) CAD (coronary artery disease) Code(s): I25.10 - ATHSCL HEART DISEASE OF [place] CORONARY ARTERY W/O ANG PCTRS Qualifiers: Coronary Disease-Associated Artery/Lesion type: unspecified vessel or lesion type [place] vs. transplanted heart: [place] heart Associated angina: without angina Qualified Code(s): I25.10 - Atherosclerotic heart disease of [place] coronary artery without angina pectoris (3) CKD (chronic kidney disease) Code(s): N18.9 - CHRONIC KIDNEY DISEASE, UNSPECIFIED (4) Calculus of common duct with obstruction Code(s): K80.51 - CALCULUS OF BILE DUCT W/O CHOLANGITIS OR CHOLECYST W OBST (5) History of percutaneous coronary intervention Code(s): Z98.890 - OTHER SPECIFIED POSTPROCEDURAL STATES (6) S/P ERCP Code(s): Z98.890 - OTHER SPECIFIED POSTPROCEDURAL STATES (7) Thrombocytopenia Code(s): D69.6 - THROMBOCYTOPENIA, UNSPECIFIED (8) Left bundle branch block Code(s): I44.7 - LEFT BUNDLE-BRANCH BLOCK, UNSPECIFIED (9) Demand ischemia Code(s): I24.8 - OTHER FORMS OF ACUTE ISCHEMIC HEART DISEASE (10) Anemia Code(s): D64.9 - ANEMIA, UNSPECIFIED Qualifiers: Anemia type: unspecified type Qualified Code(s): D64.9 - Anemia, unspecified Assessment/Plan 1. s/p hypoxemic respiratory failure 2. Biliary septic shock (E. coli), acute cholangitis post ERCP, balloon sphincteroplasty and stent placement with leukocytosis and lactic acidosis resolved 3. Post TAVR for severe 4. CAD, S/P PCI/stent with demand ischemic injury 5. Severe biventricular failure with pleural effusions 6. Hypertension 7. Renal CA S/P right nephrectomy 8. Acute on CKD referable to septic shock and ATN - recovering off HD 9. 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 Anemia of chronic disease PLAN: 1. Wean FIO2 to maintain saO2, BD as needed 2. Monitor renal recovery - Lasix 40 qd per Renal 3. Completed antibiotics course, plan for eventual stone removal once more stable 4. Continue carvedilol 6.25 bid and Lipitor 20 qhs, resume ASA once Plt count recovers 5. DVT and GI prophylaxis
[2016-08-20] MEDS: ATORVASTATIN CA 20 MG TABLET (FP) PO SCH (21:20)
[2016-08-21] MEDS: CARVEDILOL 6.25 MG TABLET (FP) PO SCH ×2 (10:09→21:26)
[2016-08-21] MEDS: FUROSEMIDE 40 MG TABLET (FP) PO SCH (10:09)
[2016-08-21] MEDS: URSODIOL 300 MG CAPSULE PO SCH ×2 (10:09→21:27)
[2016-08-21 11:12] LABS: CALCIUM 8.5 mg/dL (8.5-10.1); COCKROFT - GAULT 17.45; CREATININE 3.7 mg/dL (0.7-1.3)
--- NOTE | 2016-08-21 12:15 | PN ---
Progress Note (short form) - Note Progress Note: Resting in NAD. No acute events overnight. No CP or SOB. Mildly confused. Intake & Output 08/18/16 08/19/16 08/20/16 08/21/16 23:59 23:59 23:59 23:59 Intake Total 438 540 740 150 Output Total 1500 1700 2400 Balance -1062 1160 -1660 150 Weight 208 lb 2 oz 209 lb 4.8 oz 213 lb 5 oz 193 lb 7 oz Last Vital Signs Temp Pulse Resp BP Pulse Ox 97.7 F 61 18 128/62 97 08/21/16 10:00 08/21/16 10:00 08/21/16 10:00 08/21/16 10:00 08/20/16 21:00 Active Medications Atorvastatin Calcium (Lipitor -) 20 mg PO [facility] Last Admin: 08/20/16 21:20 Dose: 20 mg Carvedilol (Coreg -) 6.25 mg PO BID [facility] Last Admin: 08/21/16 10:09 Dose: 6.25 mg Furosemide (Lasix -) 40 mg PO DAILY [facility] Last Admin: 08/21/16 10:09 Dose: 40 mg Ursodiol (Actigal -) 300 mg PO BID [facility] Last Admin: 08/21/16 10:09 Dose: 300 mg Gen: awake and interactive, NAD Heart: RRR Lung: decreased breath sounds at the bases Abd: soft, nontender Ext: no edema Laboratory Results - last 24 hr 08/21/16 10:20 Sodium 145 Potassium 3.5 Chloride 106 Carbon Dioxide 32 Anion Gap 7 L BUN 42 H Creatinine 3.7 H Random Glucose 99 Calcium 8.5 ASSESSMENT AND PLAN: Acute Cholangitis Gram Negative Bacteremia s/p ERCP/sphincteroplasty/stent placement Acute Hypoxic Respiratory Failure Septic Shock Acute on Chronic Renal Failure Lactic Acidosis CAD +Troponins likely Demand Ischemia s/p TAVR for severe Aortic Stenosis Thrombocytopenia - DVT/GI prophylaxis - O2 as needed - Aspiration precautions Dr Ledesma
--- NOTE | 2016-08-21 13:56 | PN ---
Physical Exam: SUBJECTIVE: Patient seen and examined. He wants to eat real food. Still slightly confused. OBJECTIVE: Vital Signs Period Temp Pulse Resp BP Sys/Hinkle Pulse Ox Last 24 Hr 97.7 F-98.3 F 57-65 18-20 117-137/56-66 97 PE Neuro: alert, awake, cn 2-12 intact Pulm: r base crackles, +nc CV: s1 s2 rrr no mrg Abd: s nt nd + bs : stone Ext: trace le edema R>L, warm Laboratory Results - last 24 hr 08/21/16 10:20 Sodium 145 Potassium 3.5 Chloride 106 Carbon Dioxide 32 Anion Gap 7 L BUN 42 H Creatinine 3.7 H Random Glucose 99 Calcium 8.5 Active Medications Generic Name Dose Route Start Last Admin Trade Name Freq PRN Reason Stop Dose Admin Atorvastatin Calcium 20 mg 08/16/16 22:00 08/20/16 21:20 Lipitor - PO 20 mg HS [facility] Administration Carvedilol 6.25 mg 08/17/16 12:21 08/21/16 10:09 Coreg - PO 6.25 mg BID [facility] Administration Furosemide 40 mg 08/20/16 10:25 08/21/16 10:09 Lasix - PO 40 mg DAILY [facility] Administration Ursodiol 300 mg 08/15/16 22:00 08/21/16 10:09 Actigal - PO 300 mg BID [facility] Administration Antibiotics - Cefazolin 10 days Assessment: 85 year old male with HTN, CAD s/p stent placement, aortic stenosis , porcine valve replacement (ASA 81mg and Plavix 75mg), 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 Plan: 1. Acute Choledocholithiasis with acute cholangitis, ERCP w/ biliary stent 08/06 - D/w Dr. Parks will discuss with pt and family tomorrow AM re: repeat ERCP and consent - Continue Ursodiol BID 2. 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 with hx of right nephrectomy - Advance renal diet - Stop lasix - Will repeat CXR today - Shiley removed 08/18 - Maintain stone 3. Septic shock 2/2 acute cholangitis - Resolving - ERCP s/p balloon sphincteroplasty and biliary stent placement 08/07 4. Thrombocytopenia - Due to sepsis and +HIT antibody - 1Uplts 5/23 - Hold chemical AC 5. CAD s/p stent placement and demand ischemia, s/p TAVR for - Will restart once plates stable ASA/plavix - Coreg 6.25 BID 6. Acute respiratory failure - Resolved; extubated 08/14 7. Lactic acidosis - Resolved 8. Acute blood loss anemia - Transfused 2UPRBC 08/15 9. Hypotension - Resolved 10. Physical Therapy - Daily OOB to chair Visit type - Emergency Visit Emergency Visit: Yes ED Registration Date: 08/06/16 Care time: The patient presented to the Emergency Department on the above date and was hospitalized for further evaluation of their emergent condition. - New Patient This patient is new to me today: No - Critical Care Critical Care patient: No
--- NOTE | 2016-08-21 14:10 | PN ---
Progress Note, Physician History of Present Illness: Pt seen and examined at bedside. He is awake and alert. He appears comfortable. - Current Medication List Current Medications: Active Medications Atorvastatin Calcium (Lipitor -) 20 mg PO HS [facility] Last Admin: 08/20/16 21:20 Dose: 20 mg Carvedilol (Coreg -) 6.25 mg PO BID [facility] Last Admin: 08/21/16 10:09 Dose: 6.25 mg Furosemide (Lasix -) 40 mg PO DAILY [facility] Last Admin: 08/21/16 10:09 Dose: 40 mg Ursodiol (Actigal -) 300 mg PO BID [facility] Last Admin: 08/21/16 10:09 Dose: 300 mg - Objective Vital Signs: Vital Signs Temperature 97.7 F 08/21/16 10:00 Pulse Rate 61 08/21/16 10:00 Respiratory Rate 18 08/21/16 10:00 Blood Pressure 128/62 08/21/16 10:00 O2 Sat by Pulse Oximetry (%) 97 08/20/16 21:00 Constitutional: Yes: Calm Eyes: Yes: Conjunctiva Clear Neck: Yes: Supple Cardiovascular: Yes: S1, S2 Respiratory: Yes: Diminished, On Nasal O2 Gastrointestinal: Yes: Soft Genitourinary: Yes: [place] Present Musculoskeletal: Yes: Muscle Weakness Edema: Yes Edema: LLE: Trace, RLE: Trace Neurological: Yes: Oriented Labs: CBC, BMP 08/20/16 06:30 08/21/16 10:20 INR, PTT INR 1.07 (0.82-1.09) 08/13/16 05:35 Fibrinogen 463.0 mg/dL (238-498) D 08/13/16 05:35 Problem List - Problems (1) CAD (coronary artery disease) Code(s): I25.10 - ATHSCL HEART DISEASE OF [place] CORONARY ARTERY W/O ANG PCTRS Qualifiers: Qualified Code(s): I25.10 - Atherosclerotic heart disease of [place] coronary artery without angina pectoris (2) Calculus of common duct with obstruction Code(s): K80.51 - CALCULUS OF BILE DUCT W/O CHOLANGITIS OR CHOLECYST W OBST (3) Choledocholithiasis Code(s): K80.50 - CALCULUS OF BILE DUCT W/O CHOLANGITIS OR CHOLECYST W/O OBST (4) Renal cancer Code(s): C64.9 - MALIGNANT NEOPLASM OF UNSP KIDNEY, EXCEPT RENAL PELVIS Qualifiers: Qualified Code(s): C64.1 - Malignant neoplasm of right kidney, except renal pelvis (5) CRISS (acute kidney injury) Code(s): N17.9 - ACUTE KIDNEY FAILURE, UNSPECIFIED (6) CKD (chronic kidney disease) Code(s): N18.9 - CHRONIC KIDNEY DISEASE, UNSPECIFIED Assessment/Plan Current Medications Generic Name Dose Route Start Last Admin Trade Name Freq PRN Reason Stop Dose Admin Atorvastatin Calcium 20 mg 08/16/16 22:00 08/20/16 21:20 Lipitor - PO 20 mg HS [facility] Administration Carvedilol 6.25 mg 08/17/16 12:21 08/21/16 10:09 Coreg - PO 6.25 mg BID [facility] Administration Furosemide 40 mg 08/20/16 10:25 08/21/16 10:09 Lasix - PO 40 mg DAILY [facility] Administration Ursodiol 300 mg 08/15/16 22:00 08/21/16 10:09 Actigal - PO 300 mg BID [facility] Administration Impression 1. CKD stage 3 2. CRISS 3. choledocholithiasis 4. CAD 5. hx of Renal Cell Cancer s/p nephroectomy 6. aortic stenosis 7. sepsis 8. acute respiratory failure requiring intubation 9. NSTEMI 10. bacteremia Plan - HD catheter removed - hold lasix for now - will asses on a daily basis and give doses PRN - GI follow up - monitor urine output - repeat cxr Dr Medina
[2016-08-21] MEDS: ATORVASTATIN CA 20 MG TABLET (FP) PO SCH (21:26)
[2016-08-22 07:16] LABS: MCH 29.9 pg (25.7-33.7); MCHC 33.5 g/dl (32.0-35.9); MEAN CELL VOLUME 89.1 fl (80-96); MEAN PLT VOLUME 9.7 fl (7.5-11.1); PLATELET COUNT 126 K/MM3 (134-434); RDW 17.2 % (11.9-15.9); WHITE BLOOD COUNT 4.7 K/mm3 (4.0-10.0)
[2016-08-22 07:46] LABS: CALCIUM 8.1 mg/dL (8.5-10.1); COCKROFT - GAULT 17.45; CREATININE 3.7 mg/dL (0.7-1.3)
[2016-08-22] MEDS: FUROSEMIDE 40 MG TABLET (FP) PO SCH (09:45)
[2016-08-22] MEDS: URSODIOL 300 MG CAPSULE PO SCH ×2 (09:45→22:02)
[2016-08-22] MEDS: CARVEDILOL 6.25 MG TABLET (FP) PO SCH ×2 (09:45→22:03)
--- NOTE | 2016-08-22 10:02 | PN ---
Progress Note (short form) - Note Progress Note: No acute events No pain On diet CBC,CMP WBC 4.7 K/mm3 (4.0-10.0) 08/22/16 06:30 RBC 2.95 M/mm3 (4.00-5.60) L 08/22/16 06:30 Hgb 8.8 GM/dL (11.7-16.9) L 08/22/16 06:30 Hct 26.2 % (35.4-49) L 08/22/16 06:30 MCV 89.1 fl (80-96) 08/22/16 06:30 MCHC 33.5 g/dl (32.0-35.9) 08/22/16 06:30 RDW 17.2 % (11.9-15.9) H 08/22/16 06:30 Plt Count 126 K/MM3 (134-434) L 08/22/16 06:30 MPV 9.7 fl (7.5-11.1) 08/22/16 06:30 Neutrophils % 71.7 % (42.8-82.8) 08/18/16 06:00 Lymphocytes % 13.1 % (8-40) D 08/18/16 06:00 Monocytes % 9.0 % (3.8-10.2) 08/18/16 06:00 Eosinophils % 5.5 % (0-4.5) H 08/18/16 06:00 Basophils % 0.7 % (0-2.0) 08/18/16 06:00 Band Neutrophils 11.0 % (0-10) H D 08/08/16 05:15 Metamyelocytes 5 % (0-2) H D 08/07/16 20:30 Myelocytes 9 % (0-2) H D 08/07/16 20:30 Differential Comment Manual diff done 08/09/16 08:30 Dohle Bodies 1+ 08/08/16 05:15 Platelet Estimate Decreased (NORMAL) 08/09/16 08:30 Platelet Comment No clumping noted 08/08/16 05:15 Polychromasia Few 08/08/16 05:15 Hypochromic-Microcytic Few 08/08/16 05:15 Sodium 145 mmol/L (136-145) 08/22/16 06:30 Potassium 3.2 mmol/L (3.5-5.1) L 08/22/16 06:30 Chloride 106 mmol/L (98-107) 08/22/16 06:30 Carbon Dioxide 32 mmol/L (21-32) 08/22/16 06:30 Anion Gap 7 (8-16) L 08/22/16 06:30 BUN 38 mg/dL (7-18) H 08/22/16 06:30 Creatinine 3.7 mg/dL (0.7-1.3) H 08/22/16 06:30 Creat Clearance w eGFR 16.12 (>60) 08/20/16 06:30 Random Glucose 80 mg/dL (74-106) 08/22/16 06:30 Lactic Acid 1.684 mmol/L (0.4-2.0) 08/08/16 13:20 Calcium 8.1 mg/dL (8.5-10.1) L 08/22/16 06:30 Phosphorus 4.4 mg/dL (2.5-4.9) D 08/14/16 05:30 Magnesium 2.0 mg/dL (1.8-2.4) 08/14/16 05:30 Total Bilirubin 1.8 mg/dL (0.2-1.0) H 08/20/16 06:30 Direct Bilirubin 1.4 mg/dL (0.0-0.2) H D 08/14/16 05:30 AST 33 U/L (15-37) D 08/20/16 06:30 ALT 11 U/L (12-78) L 08/20/16 06:30 Alkaline Phosphatase 370 U/L (45-117) H 08/20/16 06:30 Creatine Kinase 60 IU/L (39-308) 08/11/16 00:00 Creatine Kinase Index 11.8 % (0.0-5.0) H* 08/08/16 13:20 CK-MB (CK-2) 18.446 ng/ml (0.5-3.6) H 08/08/16 13:20 CK-MB (CK-2) Rel Index Cancelled 08/08/16 13:20 Troponin I 1.73 ng/ml (0.00-0.05) H* 08/11/16 05:15 C-Reactive Protein 21.5 MG/DL (0.00-0.3) H 08/08/16 05:15 Total Protein 4.9 g/dl (6.4-8.2) L 08/20/16 06:30 Albumin 2.1 g/dl (3.4-5.0) L 08/20/16 06:30 Total Amylase 49 U/L (25-115) D 08/08/16 05:15 Lipase 116 U/L (73-393) 08/08/16 05:15 Antibiotics OOB F/U with GI for repeat ERCP Problem List - Problems (1) Umbilical discharge Code(s): R19.8 - OTH SYMPTOMS AND SIGNS INVOLVING THE DGSTV SYS AND ABDOMEN
--- NOTE | 2016-08-22 11:18 | PN ---
Physical Exam: SUBJECTIVE: Patient seen and examined at bedside. Family present during exam. Patient reports eating a full breakfast this morning. Denies badominal pain, nausea or vomiting. OBJECTIVE: Vital Signs 3 Period Temp Pulse Resp BP Sys/Hinkle Pulse Ox Last 24 Hr 97.9 F-99.4 F 59-62 20-20 124-155/54-62 98 GENERAL: The patient is awake, alert, and fully oriented, in no acute distress. HEAD: Normal with no signs of trauma. Hearing aid in place. EYES: PERRL, extraocular movements intact, sclera anicteric, conjunctiva pale. No ptosis. ENT: Ears normal, nares patent, oropharynx clear without exudates, moist mucous membranes. NECK: Trachea midline, full range of motion, supple. LUNGS: Breath sounds equal, clear to auscultation bilaterally, no wheezes, no crackles, no accessory muscle use. HEART: Regular rate and rhythm, S1, S2 without murmur, rub or gallop. ABDOMEN: Soft, nontender, nondistended, normoactive bowel sounds, no guarding, no rebound, no hepatosplenomegaly, no masses. Small ecchymotic areas present. EXTREMITIES: 2+ pulses, warm, well-perfused, no edema. NEUROLOGICAL: Cranial nerves II through XII grossly intact. Normal speech, gait not observed. PSYCH: Normal mood, normal affect. SKIN: Warm, dry, normal turgor, no rashes or lesions noted Laboratory Results - last 24 hr 3 08/21/16 08/22/16 08/22/16 10:20 06:30 06:30 WBC 4.7 RBC 2.95 L Hgb 8.8 L Hct 26.2 L MCV 89.1 MCHC 33.5 RDW 17.2 H Plt Count 126 L MPV 9.7 Sodium 145 145 Potassium 3.5 3.2 L Chloride 106 106 Carbon Dioxide 32 32 Anion Gap 7 L 7 L BUN 42 H 38 H Creatinine 3.7 H 3.7 H Random Glucose 99 80 Calcium 8.5 8.1 L Active Medications 3 Generic Name Dose Route Start Last Admin Trade Name Freq PRN Reason Stop Dose Admin Atorvastatin Calcium 20 mg 08/16/16 22:00 08/21/16 21:26 Lipitor - PO 20 mg HS SUBHA Administration Carvedilol 6.25 mg 08/17/16 12:21 08/22/16 09:45 Coreg - PO 6.25 mg BID SUBHA Administration Furosemide 40 mg 08/20/16 10:25 08/22/16 09:45 Lasix - PO 40 mg DAILY SUBHA Administration Ursodiol 300 mg 08/15/16 22:00 08/22/16 09:45 Actigal - PO 300 mg BID SUBHA Administration ASSESSMENT/PLAN: A: This is a 85 year old male with HTN, CAD s/p stent placement, aortic stenosis, porcine valve replacement (ASA 81mg and Plavix 75mg), 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 P: 1. Acute Choledocholithiasis with acute cholangitis, ERCP w/ biliary stent 08/06 - case discussed with Dr. Parks who discussed with pt and family regarding repeat ERCP scheduled for 08/24 - consented for ERCP by Kasey - Continue Ursodiol BID 2. 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 with hx of right nephrectomy - Stop lasix - Shiley removed 08/18 - monitor K - Maintain stone 3. Septic shock 2/2 acute cholangitis - Resolving - ERCP s/p balloon sphincteroplasty and biliary stent placement 08/07 - repeat ERCP with sphincterotomy scheduled for 08/24 4. Thrombocytopenia - Due to sepsis and +HIT antibody - 1Uplts 08/14 - Hold chemical AC - Plt trending up (38 on 08/10-> 126 today) 5. CAD s/p stent placement and demand ischemia, s/p TAVR for - Will restart once plates stable ASA/plavix - Coreg 6.25 BID 6. Acute respiratory failure - Resolved; extubated 08/14 7. Lactic acidosis - Resolved 8. Acute blood loss anemia - Transfused 2UPRBC 08/15 9. Hypotension - Resolved 10. F/E/N - renal diet - NPO after MN 08/24 - K-3.3 hold lasix and replete per Renal 11. PPX - Daily OOB to chair - PT daily - Hold AC therapy 2/2 thrombocytopenia and pending ERCP Dispo: This patient requires continued inpatient services at this time. Code Status: DNR/DNI Visit type - Emergency Visit Emergency Visit: Yes ED Registration Date: 08/06/16 Care time: The patient presented to the Emergency Department on the above date and was hospitalized for further evaluation of their emergent condition. - New Patient This patient is new to me today: Yes Date on this admission: 08/22/16 - Critical Care Critical Care patient: No
--- NOTE | 2016-08-22 12:36 | PN ---
GI Progress Note Subjective: GI NOte: Blane is more alert today. I discussed the need for a repeat ERCP to perform and sphincterotomy to extract his residual CBD stones and for a cholecystectomy as well. His and other family members were present. I informed everyone of the risks of perforation, hemorrhage and ERCP associated pancreatitis that can lead to renal and pulmonary as well as other organ failures. Blane appeared to comprehend parts of this discussion so I asked that his mutually consent with him which she did. They understand that the DNR will be reversed for this procedure. Platelets are up to 126K. - Objective Vital Signs: Vital Signs Temperature 99.4 F 08/22/16 06:40 Pulse Rate 62 08/22/16 06:40 Respiratory Rate 20 08/22/16 06:40 Blood Pressure 155/59 08/22/16 06:40 O2 Sat by Pulse Oximetry (%) 98 08/21/16 21:00 CBC,CMP WBC 4.7 K/mm3 (4.0-10.0) 08/22/16 06:30 RBC 2.95 M/mm3 (4.00-5.60) L 08/22/16 06:30 Hgb 8.8 GM/dL (11.7-16.9) L 08/22/16 06:30 Hct 26.2 % (35.4-49) L 08/22/16 06:30 MCV 89.1 fl (80-96) 08/22/16 06:30 MCHC 33.5 g/dl (32.0-35.9) 08/22/16 06:30 RDW 17.2 % (11.9-15.9) H 08/22/16 06:30 Plt Count 126 K/MM3 (134-434) L 08/22/16 06:30 MPV 9.7 fl (7.5-11.1) 08/22/16 06:30 Neutrophils % 71.7 % (42.8-82.8) 08/18/16 06:00 Lymphocytes % 13.1 % (8-40) D 08/18/16 06:00 Monocytes % 9.0 % (3.8-10.2) 08/18/16 06:00 Eosinophils % 5.5 % (0-4.5) H 08/18/16 06:00 Basophils % 0.7 % (0-2.0) 08/18/16 06:00 Band Neutrophils 11.0 % (0-10) H D 08/08/16 05:15 Metamyelocytes 5 % (0-2) H D 08/07/16 20:30 Myelocytes 9 % (0-2) H D 08/07/16 20:30 Differential Comment Manual diff done 08/09/16 08:30 Dohle Bodies 1+ 08/08/16 05:15 Platelet Estimate Decreased (NORMAL) 08/09/16 08:30 Platelet Comment No clumping noted 08/08/16 05:15 Polychromasia Few 08/08/16 05:15 Hypochromic-Microcytic Few 08/08/16 05:15 Sodium 145 mmol/L (136-145) 08/22/16 06:30 Potassium 3.2 mmol/L (3.5-5.1) L 08/22/16 06:30 Chloride 106 mmol/L (98-107) 08/22/16 06:30 Carbon Dioxide 32 mmol/L (21-32) 08/22/16 06:30 Anion Gap 7 (8-16) L 08/22/16 06:30 BUN 38 mg/dL (7-18) H 08/22/16 06:30 Creatinine 3.7 mg/dL (0.7-1.3) H 08/22/16 06:30 Creat Clearance w eGFR 16.12 (>60) 08/20/16 06:30 Random Glucose 80 mg/dL (74-106) 08/22/16 06:30 Lactic Acid 1.684 mmol/L (0.4-2.0) 08/08/16 13:20 Calcium 8.1 mg/dL (8.5-10.1) L 08/22/16 06:30 Phosphorus 4.4 mg/dL (2.5-4.9) D 08/14/16 05:30 Magnesium 2.0 mg/dL (1.8-2.4) 08/14/16 05:30 Total Bilirubin 1.8 mg/dL (0.2-1.0) H 08/20/16 06:30 Direct Bilirubin 1.4 mg/dL (0.0-0.2) H D 08/14/16 05:30 AST 33 U/L (15-37) D 08/20/16 06:30 ALT 11 U/L (12-78) L 08/20/16 06:30 Alkaline Phosphatase 370 U/L (45-117) H 08/20/16 06:30 Creatine Kinase 60 IU/L (39-308) 08/11/16 00:00 Creatine Kinase Index 11.8 % (0.0-5.0) H* 08/08/16 13:20 CK-MB (CK-2) 18.446 ng/ml (0.5-3.6) H 08/08/16 13:20 CK-MB (CK-2) Rel Index Cancelled 08/08/16 13:20 Troponin I 1.73 ng/ml (0.00-0.05) H* 08/11/16 05:15 C-Reactive Protein 21.5 MG/DL (0.00-0.3) H 08/08/16 05:15 Total Protein 4.9 g/dl (6.4-8.2) L 08/20/16 06:30 Albumin 2.1 g/dl (3.4-5.0) L 08/20/16 06:30 Total Amylase 49 U/L (25-115) D 08/08/16 05:15 Lipase 116 U/L (73-393) 08/08/16 05:15 Constitutional: No Distress Eyes: Yes: Conjunctiva Clear HENT: Yes: Atraumatic Cardiovascular: Yes: Regular Rate and Rhythm Respiratory: Yes: CTA Bilaterally ...Auscultate: Yes: Normoactive Bowel Sounds ...Palpate: Yes: Soft, Other (nontender) Labs: CBC, BMP 08/22/16 06:30 08/22/16 06:30 INR, PTT INR 1.07 (0.82-1.09) 08/13/16 05:35 Fibrinogen 463.0 mg/dL (238-498) D 08/13/16 05:35 Laboratory Tests 08/13/16 05:35 INR 1.07 Assessment/Plan Recovered from cholangitis with improving renal function and rising platelet count. Will schedule ERCP for 08/24 to extract residual stones. Discussed with Dr Herrera, hospitalist.
[2016-08-22] MEDS ORDERED: POTASSIUM CHLORIDE TABS 20 MEQ TABLET.ER (FP) PO ONE (13:17)
--- NOTE | 2016-08-22 13:17 | PN ---
Progress Note, Physician History of Present Illness: Pt seen and examined at bedside. He is more awake and alert today. He denies shortness of breath. - Current Medication List Current Medications: Active Medications Atorvastatin Calcium (Lipitor -) 20 mg PO [facility] Last Admin: 08/21/16 21:26 Dose: 20 mg Carvedilol (Coreg -) 6.25 mg PO BID [facility] Last Admin: 08/22/16 09:45 Dose: 6.25 mg Ursodiol (Actigal -) 300 mg PO BID [facility] Last Admin: 08/22/16 09:45 Dose: 300 mg - Objective Vital Signs: Vital Signs Temperature 99.4 F 08/22/16 06:40 Pulse Rate 62 08/22/16 06:40 Respiratory Rate 20 08/22/16 06:40 Blood Pressure 155/59 08/22/16 06:40 O2 Sat by Pulse Oximetry (%) 98 08/21/16 21:00 Constitutional: Yes: Calm Eyes: Yes: Conjunctiva Clear HENT: Yes: Atraumatic Cardiovascular: Yes: S1, S2 Respiratory: Yes: CTA Bilaterally Gastrointestinal: Yes: Normal Bowel Sounds, Soft Genitourinary: Yes: [place] Present Musculoskeletal: Yes: WNL Edema: Yes Edema: LLE: Trace, RLE: Trace Neurological: Yes: Oriented Psychiatric: Yes: Oriented Labs: CBC, BMP 08/22/16 06:30 08/22/16 06:30 INR, PTT INR 1.07 (0.82-1.09) 08/13/16 05:35 Fibrinogen 463.0 mg/dL (238-498) D 08/13/16 05:35 Problem List - Problems (1) CAD (coronary artery disease) Code(s): I25.10 - ATHSCL HEART DISEASE OF [place] CORONARY ARTERY W/O ANG PCTRS Qualifiers: Coronary Disease-Associated Artery/Lesion type: unspecified vessel or lesion type [place] vs. transplanted heart: [place] heart Associated angina: without angina Qualified Code(s): I25.10 - Atherosclerotic heart disease of [place] coronary artery without angina pectoris (2) Calculus of common duct with obstruction Code(s): K80.51 - CALCULUS OF BILE DUCT W/O CHOLANGITIS OR CHOLECYST W OBST (3) Choledocholithiasis Code(s): K80.50 - CALCULUS OF BILE DUCT W/O CHOLANGITIS OR CHOLECYST W/O OBST (4) Renal cancer Code(s): C64.9 - MALIGNANT NEOPLASM OF UNSP KIDNEY, EXCEPT RENAL PELVIS Qualifiers: Laterality: right Qualified Code(s): C64.1 - Malignant neoplasm of right kidney, except renal pelvis (5) CRISS (acute kidney injury) Code(s): N17.9 - ACUTE KIDNEY FAILURE, UNSPECIFIED (6) CKD (chronic kidney disease) Code(s): N18.9 - CHRONIC KIDNEY DISEASE, UNSPECIFIED Assessment/Plan Current Medications Generic Name Dose Route Start Last Admin Trade Name Freq PRN Reason Stop Dose Admin Atorvastatin Calcium 20 mg 08/16/16 22:00 08/21/16 21:26 Lipitor - PO 20 mg HS SUBHA Administration Carvedilol 6.25 mg 08/17/16 12:21 08/22/16 09:45 Coreg - PO 6.25 mg BID SUBHA Administration Ursodiol 300 mg 08/15/16 22:00 08/22/16 09:45 Actigal - PO 300 mg BID SUBHA Administration Impression 1. CKD stage 3 2. CRISS 3. choledocholithiasis 4. CAD 5. hx of Renal Cell Cancer s/p nephroectomy 6. aortic stenosis 7. sepsis 8. acute respiratory failure requiring intubation 9. NSTEMI 10. bacteremia Plan - renal function is stabilizing - discussed with GI, pt at risk for CRISS if he developed pancreatitis - replace potassium - hold standing dose of lasix and give PRN - will follow closely Dr Medina
--- NOTE | 2016-08-22 15:49 | PN ---
Progress Note, Physician History of Present Illness: No abd pain, afebrile, tolerating diet. - Current Medication List Current Medications: Active Medications Atorvastatin Calcium (Lipitor -) 20 mg PO [facility] Last Admin: 08/21/16 21:26 Dose: 20 mg Carvedilol (Coreg -) 6.25 mg PO BID [facility] Last Admin: 08/22/16 09:45 Dose: 6.25 mg Ursodiol (Actigal -) 300 mg PO BID [facility] Last Admin: 08/22/16 09:45 Dose: 300 mg - Objective Vital Signs: Vital Signs Temperature 98.7 F 08/22/16 15:07 Pulse Rate 58 L 08/22/16 15:07 Respiratory Rate 18 08/22/16 15:07 Blood Pressure 129/56 08/22/16 15:07 O2 Sat by Pulse Oximetry (%) 98 08/21/16 21:00 Constitutional: Yes: No Distress, Calm Neck: Yes: Supple Cardiovascular: Yes: Regular Rate and Rhythm Respiratory: Yes: Regular, Diminished, On Nasal O2 Gastrointestinal: Yes: Normal Bowel Sounds, Soft Edema: No Labs: CBC, BMP 08/22/16 06:30 08/22/16 06:30 INR, PTT INR 1.07 (0.82-1.09) 08/13/16 05:35 Fibrinogen 463.0 mg/dL (238-498) D 08/13/16 05:35 Problem List - Problems (1) CRISS (acute kidney injury) Code(s): N17.9 - ACUTE KIDNEY FAILURE, UNSPECIFIED (2) CAD (coronary artery disease) Code(s): I25.10 - ATHSCL HEART DISEASE OF [place] CORONARY ARTERY W/O ANG PCTRS Qualifiers: Coronary Disease-Associated Artery/Lesion type: unspecified vessel or lesion type [place] vs. transplanted heart: [place] heart Associated angina: without angina Qualified Code(s): I25.10 - Atherosclerotic heart disease of [place] coronary artery without angina pectoris (3) CKD (chronic kidney disease) Code(s): N18.9 - CHRONIC KIDNEY DISEASE, UNSPECIFIED (4) Calculus of common duct with obstruction Code(s): K80.51 - CALCULUS OF BILE DUCT W/O CHOLANGITIS OR CHOLECYST W OBST (5) History of percutaneous coronary intervention Code(s): Z98.890 - OTHER SPECIFIED POSTPROCEDURAL STATES (6) S/P ERCP Code(s): Z98.890 - OTHER SPECIFIED POSTPROCEDURAL STATES (7) Thrombocytopenia Code(s): D69.6 - THROMBOCYTOPENIA, UNSPECIFIED (8) Left bundle branch block Code(s): I44.7 - LEFT BUNDLE-BRANCH BLOCK, UNSPECIFIED (9) Demand ischemia Code(s): I24.8 - OTHER FORMS OF ACUTE ISCHEMIC HEART DISEASE (10) Anemia Code(s): D64.9 - ANEMIA, UNSPECIFIED Qualifiers: Anemia type: unspecified type Qualified Code(s): D64.9 - Anemia, unspecified Assessment/Plan 1. s/p hypoxemic respiratory failure 2. Biliary septic shock (E. coli), acute cholangitis post ERCP, balloon sphincteroplasty and stent placement with leukocytosis and lactic acidosis resolved 3. Post TAVR for severe 4. CAD, S/P PCI/stent with demand ischemic injury 5. Severe biventricular failure with pleural effusions 6. Hypertension 7. Renal CA S/P right nephrectomy 8. Acute on CKD referable to septic shock and ATN - recovering off HD 9. 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 Anemia of chronic disease PLAN: 1. Wean FIO2 to maintain saO2, BD as needed 2. Monitor renal recovery - Lasix 40 as needed per Renal 3. Completed antibiotics course, plan for repeat 6/2 ERCP, sphincterotomy,stone removal and cholecystectomy now that he has stabilized 4. Continue carvedilol 6.25 bid and Lipitor 20 qhs, resume ASA post-procedure now that Plt count recovers 5. DVT and GI prophylaxis
[2016-08-22] MEDS: ATORVASTATIN CA 20 MG TABLET (FP) PO SCH (22:02)
[2016-08-23 07:59] LABS: MCH 29.7 pg (25.7-33.7); MCHC 33.5 g/dl (32.0-35.9); MEAN CELL VOLUME 88.8 fl (80-96); MEAN PLT VOLUME 10.1 fl (7.5-11.1); PLATELET COUNT 117 K/MM3 (134-434); WHITE BLOOD COUNT 4.7 K/mm3 (4.0-10.0)
[2016-08-23 08:18] LABS: ALBUMIN 2.3 g/dl (3.4-5.0); BILIRUBIN,TOTAL 1.7 mg/dL (0.2-1.0); COCKROFT - GAULT 19.05; CREATININE 3.4 mg/dL (0.7-1.3); MAGNESIUM 1.7 mg/dL (1.8-2.4); TOT PROT 5.1 g/dl (6.4-8.2)
--- NOTE | 2016-08-23 09:37 | PN ---
Progress Note (short form) - Note Progress Note: Resting in NAD. No acute events overnight. No CP or SOB. Intake & Output 08/20/16 08/21/16 08/22/16 08/23/16 23:59 23:59 23:59 23:59 Intake Total 867 355 3148 250 Output Total 2400 600 1050 300 Balance -1660 90 120 -50 Weight 213 lb 5 oz 193 lb 7 oz 194 lb Last Vital Signs Temp Pulse Resp BP Pulse Ox 98.6 F 60 20 144/58 97 08/23/16 06:10 08/23/16 06:10 08/23/16 06:10 08/23/16 06:10 08/22/16 21:00 Active Medications Atorvastatin Calcium (Lipitor -) 20 mg PO [facility] Last Admin: 08/22/16 22:02 Dose: 20 mg Carvedilol (Coreg -) 6.25 mg PO BID [facility] Last Admin: 08/22/16 22:03 Dose: 6.25 mg Ursodiol (Actigal -) 300 mg PO BID [facility] Last Admin: 08/22/16 22:02 Dose: 300 mg Gen: awake and alert, NAD Heart: RRR Lung: decreased breath sounds at the bases Abd: soft, nontender Ext: no edema Laboratory Results - last 24 hr 08/23/16 08/23/16 08/23/16 06:30 06:30 07:00 WBC 4.7 RBC 2.95 L Hgb 8.8 L Hct 26.2 L MCV 88.8 MCHC 33.5 RDW 17.0 H Plt Count 117 L MPV 10.1 Neutrophils % Y Lymphocytes % Y Sodium 145 Potassium 3.9 D Chloride 105 Carbon Dioxide 33 H Anion Gap 7 L BUN 36 H Creatinine 3.4 H Creat Clearance w eGFR 17.22 Random Glucose 85 Calcium 8.0 L Magnesium 1.7 L Total Bilirubin 1.7 H AST 27 ALT 11 L Alkaline Phosphatase 325 H Total Protein 5.1 L Albumin 2.3 L Blood Type A POSITIVE Antibody Screen Negative ASSESSMENT AND PLAN: Acute Cholangitis Gram Negative Bacteremia s/p ERCP/sphincteroplasty/stent placement Acute Hypoxic Respiratory Failure Septic Shock Acute on Chronic Renal Failure Lactic Acidosis CAD +Troponins likely Demand Ischemia s/p TAVR for severe Aortic Stenosis Thrombocytopenia - DVT/GI prophylaxis - O2 as needed - Aspiration precautions - Actigal - D/C planning Dr Ledesma
[2016-08-23] MEDS: CARVEDILOL 6.25 MG TABLET (FP) PO SCH ×2 (09:42→21:12)
[2016-08-23] MEDS: URSODIOL 300 MG CAPSULE PO SCH ×2 (09:42→21:12)
--- NOTE | 2016-08-23 11:37 | PN ---
Physical Exam: SUBJECTIVE: Patient seen and examined. He states he feels well. Denies pain, shortness of breath or discomfort. OBJECTIVE: For ERCP in a.m. NPO @ midnight Vital Signs Period Temp Pulse Resp BP Sys/Hinkle Pulse Ox Last 24 Hr 97.5 F-98.7 F 57-60 18-20 122-144/56-65 97 GENERAL: Patient is awake, alert and in no acute distress HEAD: Normal with no signs of trauma. NECK: Normal range of motion, supple without lymphadenopathy, JVD, or masses. LUNGS: anterior/posterior lung sounds diminished, on 2 liters of nasal cannula HEART: Regular rate and rhythm ABDOMEN: very mild redness to periumbilical region. UPPER EXTREMITIES: lower ext with non pitting edema NEUROLOGICAL: Awake, alert SKIN: abscess without any drainage or odor Laboratory Results - last 24 hr 08/23/16 08/23/16 08/23/16 06:30 06:30 07:00 WBC 4.7 RBC 2.95 L Hgb 8.8 L Hct 26.2 L MCV 88.8 MCHC 33.5 RDW 17.0 H Plt Count 117 L MPV 10.1 Neutrophils % Y Lymphocytes % Y Sodium 145 Potassium 3.9 D Chloride 105 Carbon Dioxide 33 H Anion Gap 7 L BUN 36 H Creatinine 3.4 H Creat Clearance w eGFR 17.22 Random Glucose 85 Calcium 8.0 L Magnesium 1.7 L Total Bilirubin 1.7 H AST 27 ALT 11 L Alkaline Phosphatase 325 H Total Protein 5.1 L Albumin 2.3 L Blood Type A POSITIVE Antibody Screen Negative Active Medications Generic Name Dose Route Start Last Admin Trade Name Freq PRN Reason Stop Dose Admin Atorvastatin Calcium 20 mg 08/16/16 22:00 08/22/16 22:02 Lipitor - PO 20 mg HS SUBHA Administration Carvedilol 6.25 mg 08/17/16 12:21 08/23/16 09:42 Coreg - PO 6.25 mg BID SUBHA Administration Ursodiol 300 mg 08/15/16 22:00 08/23/16 09:42 Actigal - PO 300 mg BID SUBHA Administration ASSESSMENT/PLAN: Patient is a 85 year old male with a significant past medical history of hypertension, CAD s/p stent placement, aortic stenosis, porcine valve replacement (takes both ASA 81mg and Plavix 75mg), 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 He was admitted on 08/06/2016 for abdominal pain, acute choledocholithiasis, acute transaminitis, jaundice and leukocytosis with shaking chills. ID: Septic Shock likely secondary to cholangitis with respiratory failure - resolved Assessment/Plan: Extubated 08/14, lactic acidosis resolved Acute Choledocholithiasis with acute cholangitis, ERCP w/ biliary stent on 08/06 Patient for a repeat ERCP tomorrow On Ursodiol 300mg BID GI: Acute Choledocholithiasis/abdominal pain/generalized jaundice/acute transaminitis - resolving Assessment/Plan: Cholangitis s/p ERCP with biliary stent placement on 08/07 Trend LFT's On Ursodiol : Chronic Kidney Disease - acute renal failure/has solitary kidney due to renal cancer with s/p right nephrectomy Assessment/Plan: Shikishore removed on 08/18 Has stone catheter Renal following Cardiology: Hypertension - chronic Assessment/Plan: On Coreq 6.25ng BID ASA/Plavix on hold CAD s/p stent placement On ASA 81mg and Plavix 75mg - on hold Hematology: Thrombocytopenia - resolved Assessment/Plan: s/p 1 unit of platelets on 08/14 Thrombocytopenia likely secondary to sepsis HIT panel slightly elevated Prophylaxis: DVT: SCDs GI: Protonix Code Status: Requires inpatient hospitalization. DNR/DNI. Visit type - Emergency Visit Emergency Visit: Yes ED Registration Date: 08/06/16 Care time: The patient presented to the Emergency Department on the above date and was hospitalized for further evaluation of their emergent condition. - New Patient This patient is new to me today: No - Critical Care Critical Care patient: No - Discharge Referral Referred to [facility] Med P.C.: No
[2016-08-23 12:16] LABS: PLATELET ESTIMATE DECREASED (NORMAL)
[2016-08-23] MEDS ORDERED: FUROSEMIDE 40 MG/4 ML INJECTABLE VIAL IVPB ONE (13:30)
[2016-08-23] MEDS ORDERED: MAGNESIUM OXIDE 400 MG TABLET (FP) PO ONE (13:45)
--- NOTE | 2016-08-23 13:56 | PN ---
Progress Note (short form) - Note Progress Note: No acute events On diet No abdominal pain Vital Signs Period Temp Pulse Resp BP Sys/Hinkle Pulse Ox Last 24 Hr 97.5 F-98.7 F 57-60 18-20 122-144/56-65 97 Abd soft, NT CBC,CMP WBC 4.7 K/mm3 (4.0-10.0) 08/23/16 06:30 RBC 2.95 M/mm3 (4.00-5.60) L 08/23/16 06:30 Hgb 8.8 GM/dL (11.7-16.9) L 08/23/16 06:30 Hct 26.2 % (35.4-49) L 08/23/16 06:30 MCV 88.8 fl (80-96) 08/23/16 06:30 MCHC 33.5 g/dl (32.0-35.9) 08/23/16 06:30 RDW 17.0 % (11.9-15.9) H 08/23/16 06:30 Plt Count 117 K/MM3 (134-434) L 08/23/16 06:30 MPV 10.1 fl (7.5-11.1) 08/23/16 06:30 Neutrophils % 67.0 % (42.8-82.8) 08/23/16 06:30 Lymphocytes % 23.0 % (8-40) D 08/23/16 06:30 Monocytes % 6.0 % (3.8-10.2) 08/23/16 06:30 Eosinophils % 2.0 % (0-4.5) 08/23/16 06:30 Basophils % 2.0 % (0-2.0) 08/23/16 06:30 Band Neutrophils 11.0 % (0-10) H D 08/08/16 05:15 Metamyelocytes 5 % (0-2) H D 08/07/16 20:30 Myelocytes 9 % (0-2) H D 08/07/16 20:30 Differential Comment Manual diff done 08/23/16 06:30 Dohle Bodies 1+ 08/08/16 05:15 Platelet Estimate Decreased (NORMAL) 08/23/16 06:30 Platelet Comment No clumping noted 08/08/16 05:15 Polychromasia Few 08/08/16 05:15 Hypochromic-Microcytic Few 08/08/16 05:15 Sodium 145 mmol/L (136-145) 08/23/16 06:30 Potassium 3.9 mmol/L (3.5-5.1) D 08/23/16 06:30 Chloride 105 mmol/L (98-107) 08/23/16 06:30 Carbon Dioxide 33 mmol/L (21-32) H 08/23/16 06:30 Anion Gap 7 (8-16) L 08/23/16 06:30 BUN 36 mg/dL (7-18) H 08/23/16 06:30 Creatinine 3.4 mg/dL (0.7-1.3) H 08/23/16 06:30 Creat Clearance w eGFR 17.22 (>60) 08/23/16 06:30 Random Glucose 85 mg/dL (74-106) 08/23/16 06:30 Lactic Acid 1.684 mmol/L (0.4-2.0) 08/08/16 13:20 Calcium 8.0 mg/dL (8.5-10.1) L 08/23/16 06:30 Phosphorus 4.4 mg/dL (2.5-4.9) D 08/14/16 05:30 Magnesium 1.7 mg/dL (1.8-2.4) L 08/23/16 06:30 Total Bilirubin 1.7 mg/dL (0.2-1.0) H 08/23/16 06:30 Direct Bilirubin 1.4 mg/dL (0.0-0.2) H D 08/14/16 05:30 AST 27 U/L (15-37) 08/23/16 06:30 ALT 11 U/L (12-78) L 08/23/16 06:30 Alkaline Phosphatase 325 U/L (45-117) H 08/23/16 06:30 Creatine Kinase 60 IU/L (39-308) 08/11/16 00:00 Creatine Kinase Index 11.8 % (0.0-5.0) H* 08/08/16 13:20 CK-MB (CK-2) 18.446 ng/ml (0.5-3.6) H 08/08/16 13:20 CK-MB (CK-2) Rel Index Cancelled 08/08/16 13:20 Troponin I 1.73 ng/ml (0.00-0.05) H* 08/11/16 05:15 C-Reactive Protein 21.5 MG/DL (0.00-0.3) H 08/08/16 05:15 Total Protein 5.1 g/dl (6.4-8.2) L 08/23/16 06:30 Albumin 2.3 g/dl (3.4-5.0) L 08/23/16 06:30 Total Amylase 49 U/L (25-115) D 08/08/16 05:15 Lipase 116 U/L (73-393) 08/08/16 05:15 Awaiting repeat ERCP Problem List - Problems (1) Umbilical discharge Code(s): R19.8 - [facility] SYMPTOMS AND SIGNS INVOLVING THE DGSTV SYS AND ABDOMEN
--- NOTE | 2016-08-23 14:47 | PN ---
Progress Note, Physician History of Present Illness: Pt seen and examined at bedside. He is awake and alert. He denies abdominal pain. He does complain of some discomfort breathing. - Current Medication List Current Medications: Active Medications Atorvastatin Calcium (Lipitor -) 20 mg PO [facility] Last Admin: 08/22/16 22:02 Dose: 20 mg Carvedilol (Coreg -) 6.25 mg PO BID [facility] Last Admin: 08/23/16 09:42 Dose: 6.25 mg Ursodiol (Actigal -) 300 mg PO BID [facility] Last Admin: 08/23/16 09:42 Dose: 300 mg - Objective Vital Signs: Vital Signs Temperature 98.6 F 08/23/16 06:10 Pulse Rate 60 08/23/16 06:10 Respiratory Rate 20 08/23/16 06:10 Blood Pressure 144/58 08/23/16 06:10 O2 Sat by Pulse Oximetry (%) 97 08/22/16 21:00 Constitutional: Yes: Calm Eyes: Yes: Conjunctiva Clear HENT: Yes: Atraumatic Neck: Yes: Supple Cardiovascular: Yes: S1, S2 Respiratory: Yes: Diminished, On Nasal O2 Genitourinary: Yes: Marshall Present Musculoskeletal: Yes: Muscle Weakness Edema: Yes Edema: LLE: 1+, RLE: 1+ Neurological: Yes: Oriented Psychiatric: Yes: Oriented Labs: CBC, BMP 08/23/16 06:30 08/23/16 06:30 INR, PTT INR 1.07 (0.82-1.09) 08/13/16 05:35 Fibrinogen 463.0 mg/dL (238-498) D 08/13/16 05:35 Problem List - Problems (1) CAD (coronary artery disease) Code(s): I25.10 - ATHSCL HEART DISEASE OF [place] CORONARY ARTERY W/O ANG PCTRS Qualifiers: Coronary Disease-Associated Artery/Lesion type: unspecified vessel or lesion type [place] vs. transplanted heart: [place] heart Associated angina: without angina Qualified Code(s): I25.10 - Atherosclerotic heart disease of [place] coronary artery without angina pectoris (2) Calculus of common duct with obstruction Code(s): K80.51 - CALCULUS OF BILE DUCT W/O CHOLANGITIS OR CHOLECYST W OBST (3) Choledocholithiasis Code(s): K80.50 - CALCULUS OF BILE DUCT W/O CHOLANGITIS OR CHOLECYST W/O OBST (4) Renal cancer Code(s): C64.9 - MALIGNANT NEOPLASM OF UNSP KIDNEY, EXCEPT RENAL PELVIS Qualifiers: Laterality: right Qualified Code(s): C64.1 - Malignant neoplasm of right kidney, except renal pelvis (5) CRISS (acute kidney injury) Code(s): N17.9 - ACUTE KIDNEY FAILURE, UNSPECIFIED (6) CKD (chronic kidney disease) Code(s): N18.9 - CHRONIC KIDNEY DISEASE, UNSPECIFIED Assessment/Plan Current Medications Generic Name Dose Route Start Last Admin Trade Name Freq PRN Reason Stop Dose Admin Atorvastatin Calcium 20 mg 08/16/16 22:00 08/22/16 22:02 Lipitor - PO 20 mg HS SBUHA Administration Carvedilol 6.25 mg 08/17/16 12:21 08/23/16 09:42 Coreg - PO 6.25 mg BID SUBHA Administration Ursodiol 300 mg 08/15/16 22:00 08/23/16 09:42 Actigal - PO 300 mg BID SUBHA Administration Impression 1. CKD stage 3 2. CRISS 3. choledocholithiasis 4. CAD 5. hx of Renal Cell Cancer s/p nephroectomy 6. aortic stenosis 7. sepsis 8. acute respiratory failure requiring intubation 9. NSTEMI 10. bacteremia Plan - will give dose of lasix today as he sound congested and has edema - repeat labs in am - ercp in am - will follow pt - ercp is risk for pancreatitis which if occurs cause CRISS - procedure planned for am Dr Medina
[2016-08-23] MEDS: LACTATED RINGERS SOLUTION 1,000 ML IV SCH (18:13)
[2016-08-23] MEDS: ATORVASTATIN CA 20 MG TABLET (FP) PO SCH (21:12)
[2016-08-24 07:53] LABS: BASOPHIL 3.2 % (0-2.0); EOSINOPHIL 4.2 % (0-4.5); MCH 29.8 pg (25.7-33.7); MCHC 33.3 g/dl (32.0-35.9); MEAN CELL VOLUME 89.4 fl (80-96); MEAN PLT VOLUME 10.1 fl (7.5-11.1); NEUTROPHILS 55.6 % (42.8-82.8); PLATELET COUNT 101 K/MM3 (134-434); RDW 17.1 % (11.9-15.9); WHITE BLOOD COUNT 4.2 K/mm3 (4.0-10.0)
[2016-08-24 08:22] LABS: ALBUMIN 2.1 g/dl (3.4-5.0); BILIRUBIN,TOTAL 1.6 mg/dL (0.2-1.0); CALCIUM 7.7 mg/dL (8.5-10.1); COCKROFT - GAULT 20.92; CREATININE 3.1 mg/dL (0.7-1.3); TOT PROT 4.8 g/dl (6.4-8.2)
[2016-08-24] MEDS: URSODIOL 300 MG CAPSULE PO SCH ×2 (09:30→23:03)
[2016-08-24] MEDS: CARVEDILOL 6.25 MG TABLET (FP) PO SCH ×2 (09:43→23:03)
--- NOTE | 2016-08-24 12:16 | PN ---
Progress Note (short form) - Note Progress Note: PULMONARY RESTING COMFORTABLY NO OVERALL CLINICAL CHANGE IN EXAM LABS/MEDS/NOTES/MICRO/IMAGING REVIEWED Acute Cholangitis Gram Negative Bacteremia s/p ERCP/sphincteroplasty/stent placement Acute Hypoxic Respiratory Failure Septic Shock Acute on Chronic Renal Failure Lactic Acidosis CAD +Troponins likely [place] Ischemia s/p TAVR for severe Aortic Stenosis Thrombocytopenia - ERCP TODAY - DVT/GI prophylaxis - Normal transfusion thresholds. - Aspiration precautions Lacie PAN MD
[2016-08-24] MEDS ORDERED: NEOSTIGMINE METHYLSULFATE 0.5 MG/ML - 10 ML MDV ONE (13:28)
[2016-08-24] MEDS ORDERED: ETOMIDATE 20 MG/10 ML AMPUL IVPUSH ONE ×2 (13:28→13:30)
[2016-08-24] MEDS ORDERED: GLYCOPYRROLATE 0.2 MG/1 ML VIAL ONE ×4 (13:28)
[2016-08-24] MEDS ORDERED: ROCURONIUM BROMIDE 50 MG/5 ML VIAL ONE (13:28)
[2016-08-24] MEDS ORDERED: PHENYLEPHRINE HCL 10 MG/1 ML SINGLE DOSE VIAL ONE (13:29)
[2016-08-24] MEDS ORDERED: LEVOFLOXACIN 500 MG IVPB 100 ML IVPB ONE (14:15)
--- NOTE | 2016-08-24 14:58 | PN ---
Physical Exam: SUBJECTIVE: Patient seen and examined at the bedside. Denies any discomfort. OBJECTIVE: For ERCP today for residual CBD stone and cholecystectomy Vital Signs Period Temp Pulse Resp BP Sys/Hinkle Pulse Ox Last 24 Hr 98.1 F-98.5 F 51-61 20-20 128-143/57-60 94-96 GENERAL: Patient is awake, alert and in no acute distress - on 2 liters of nasal cannula HEAD: Normal with no signs of trauma. NECK: Normal range of motion, supple without lymphadenopathy, JVD, or masses. LUNGS: anterior/posterior lung sounds diminished, on 2 liters of nasal cannula HEART: Regular rate and rhythm ABDOMEN: very mild redness to periumbilical region. UPPER EXTREMITIES: lower ext with non pitting edema NEUROLOGICAL: Awake, alert Laboratory Results - last 24 hr 08/24/16 08/24/16 06:30 06:30 WBC 4.2 RBC 2.77 L Hgb 8.3 L Hct 24.8 L MCV 89.4 MCHC 33.3 RDW 17.1 H Plt Count 101 L MPV 10.1 Neutrophils % 55.6 Lymphocytes % 25.1 Monocytes % 11.9 H D Eosinophils % 4.2 D Basophils % 3.2 H Sodium 144 Potassium 3.5 Chloride 105 Carbon Dioxide 33 H Anion Gap 6 L BUN 35 H Creatinine 3.1 H Creat Clearance w eGFR 19.15 Random Glucose 76 Calcium 7.7 L Total Bilirubin 1.6 H AST 24 ALT 10 L Alkaline Phosphatase 286 H Total Protein 4.8 L Albumin 2.1 L Active Medications Generic Name Dose Route Start Last Admin Trade Name Freq PRN Reason Stop Dose Admin Atorvastatin Calcium 20 mg 08/16/16 22:00 08/23/16 21:12 Lipitor - PO 20 mg HS SUBHA Administration Carvedilol 6.25 mg 08/17/16 12:21 08/24/16 09:43 Coreg - PO Not Given BID SUBHA Lactated Ringer's 1,000 mls @ 75 mls/hr 08/23/16 15:15 08/23/16 18:13 Lactated Ringers Solution IV 75 mls/hr ASDIR SUBHA Administration Ursodiol 300 mg 08/15/16 22:00 08/24/16 09:30 Actigal - PO 300 mg BID SUBHA Administration ASSESSMENT/PLAN: Patient is a 85 year old male with a significant past medical history of hypertension, CAD s/p stent placement, aortic stenosis, porcine valve replacement (takes both ASA 81mg and Plavix 75mg), 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 He was admitted on 08/06/2016 for abdominal pain, acute choledocholithiasis, acute transaminitis, jaundice and leukocytosis with shaking chills. ID: Septic Shock likely secondary to cholangitis with respiratory failure - resolved Assessment/Plan: Extubated 08/14, lactic acidosis resolved Acute Choledocholithiasis with acute cholangitis, ERCP w/ biliary stent on 08/06 Patient for a repeat ERCP today for residual CBD stone and cholecystectomy On Ursodiol 300mg BID GI: Acute Choledocholithiasis/abdominal pain/generalized jaundice/acute transaminitis Assessment/Plan: Cholangitis s/p ERCP with biliary stent placement on 08/07 Trend LFT's On Ursodiol : Chronic Kidney Disease - acute renal failure/has solitary kidney due to renal cancer with s/p right nephrectomy Assessment/Plan: Shikishore removed on 08/18 Has stone catheter Renal following Cardiology: Hypertension - chronic Assessment/Plan: On Coreq 6.25ng BID ASA/Plavix on hold CAD s/p stent placement On ASA 81mg and Plavix 75mg - on hold Hematology: Thrombocytopenia - resolved Assessment/Plan: s/p 1 unit of platelets on 08/14 Thrombocytopenia likely secondary to sepsis HIT panel slightly elevated F.E.N. Fluids: Lactated ringers @ 75cc/hr Electrolytes: within normal limits Nutrition: Low sodium Prophylaxis: DVT: SCDs GI: Protonix Code Status: Requires inpatient hospitalization. DNR/DNI. Visit type - Emergency Visit Emergency Visit: Yes ED Registration Date: 08/06/16 Care time: The patient presented to the Emergency Department on the above date and was hospitalized for further evaluation of their emergent condition. - New Patient This patient is new to me today: No - Critical Care Critical Care patient: No - Discharge Referral Referred to [facility] Med P.C.: No
--- NOTE | 2016-08-24 15:14 | PN ---
Progress Note (short form) - Note Progress Note: GI Procedure NOte: Please see scanned ERCP report. A large proximal CBD stone was found and splintered during balloon extraction. The sphincterotomy swelled before they could all be extracted so a 7Fr x 4 cm stent was inserted. Discussed with patient and family.
[2016-08-24] MEDS ORDERED: LACTATED RINGERS SOLUTION 1,000 ML IV SCH (15:27)
[2016-08-24] MEDS ORDERED: LEVOFLOXACIN 500 MG IVPB 100 ML IVPB SCH (15:30)
--- NOTE | 2016-08-24 16:15 | PN ---
Progress Note, Physician History of Present Illness: Pt seen and examined at bedside. He is awake and alert. He just had the ERCP done. - Current Medication List Current Medications: Active Medications Atorvastatin Calcium (Lipitor -) 20 mg PO HS [facility] Last Admin: 08/23/16 21:12 Dose: 20 mg Carvedilol (Coreg -) 6.25 mg PO BID [facility] Last Admin: 08/24/16 09:43 Dose: Not Given Lactated Ringer's (Lactated Ringers Solution) 1,000 mls @ 125 mls/hr IV ASDIR SUBHA Stop: 08/24/16 21:15 Lactated Ringer's (Lactated Ringers Solution) 1,000 mls @ 100 mls/hr IV ASDIR SUBHA Stop: 08/25/16 03:15 Lactated Ringer's (Lactated Ringers Solution) 1,000 mls @ 75 mls/hr IV ASDIR SUBHA Stop: 08/25/16 09:15 Levofloxacin (Levaquin 500 Mg Premixed Ivpb -) 100 mls @ 100 mls/hr IVPB DAILY [facility] Ursodiol (Actigal -) 300 mg PO BID [facility] Last Admin: 08/24/16 09:30 Dose: 300 mg - Objective Vital Signs: Vital Signs Temperature 97.8 F 08/24/16 15:00 Pulse Rate 65 08/24/16 16:02 Respiratory Rate 18 08/24/16 16:02 Blood Pressure 147/46 08/24/16 16:02 O2 Sat by Pulse Oximetry (%) 99 08/24/16 16:02 Constitutional: Yes: Calm Eyes: Yes: Conjunctiva Clear HENT: Yes: Atraumatic Neck: Yes: Supple Cardiovascular: Yes: S1, S2 Respiratory: Yes: CTA Bilaterally Genitourinary: Yes: Marshall Present Musculoskeletal: Yes: Muscle Weakness Neurological: Yes: Oriented Psychiatric: Yes: Oriented Labs: CBC, BMP 08/24/16 06:30 08/24/16 06:30 INR, PTT INR 1.07 (0.82-1.09) 08/13/16 05:35 Fibrinogen 463.0 mg/dL (238-498) D 08/13/16 05:35 Problem List - Problems (1) CAD (coronary artery disease) Code(s): I25.10 - ATHSCL HEART DISEASE OF [place] CORONARY ARTERY W/O ANG PCTRS Qualifiers: Coronary Disease-Associated Artery/Lesion type: unspecified vessel or lesion type [place] vs. transplanted heart: [place] heart Associated angina: without angina Qualified Code(s): I25.10 - Atherosclerotic heart disease of [place] coronary artery without angina pectoris (2) Calculus of common duct with obstruction Code(s): K80.51 - CALCULUS OF BILE DUCT W/O CHOLANGITIS OR CHOLECYST W OBST (3) Choledocholithiasis Code(s): K80.50 - CALCULUS OF BILE DUCT W/O CHOLANGITIS OR CHOLECYST W/O OBST (4) Renal cancer Code(s): C64.9 - MALIGNANT NEOPLASM OF UNSP KIDNEY, EXCEPT RENAL PELVIS Qualifiers: Laterality: right Qualified Code(s): C64.1 - Malignant neoplasm of right kidney, except renal pelvis (5) CRISS (acute kidney injury) Code(s): N17.9 - ACUTE KIDNEY FAILURE, UNSPECIFIED (6) CKD (chronic kidney disease) Code(s): N18.9 - CHRONIC KIDNEY DISEASE, UNSPECIFIED Assessment/Plan Current Medications Generic Name Dose Route Start Last Admin Trade Name Freq PRN Reason Stop Dose Admin Atorvastatin Calcium 20 mg 08/16/16 22:00 08/23/16 21:12 Lipitor - PO 20 mg HS SUBHA Administration Carvedilol 6.25 mg 08/17/16 12:21 08/24/16 09:43 Coreg - PO Not Given BID SUBHA Lactated Ringer's 1,000 mls @ 125 mls/hr 08/24/16 15:27 Lactated Ringers Solution IV 08/24/16 21:15 ASDIR SUBHA Lactated Ringer's 1,000 mls @ 100 mls/hr 08/24/16 21:15 Lactated Ringers Solution IV 08/25/16 03:15 ASDIR SUBHA Lactated Ringer's 1,000 mls @ 75 mls/hr 08/25/16 03:15 Lactated Ringers Solution IV 08/25/16 09:15 ASDIR SUBHA Levofloxacin 100 mls @ 100 mls/hr 08/24/16 15:30 Levaquin 500 Mg Premixed Ivpb - IVPB DAILY SUBHA Ursodiol 300 mg 08/15/16 22:00 08/24/16 09:30 Actigal - PO 300 mg BID SUBHA Administration Impression 1. CKD stage 3 2. CRISS 3. choledocholithiasis 4. CAD 5. hx of Renal Cell Cancer s/p nephroectomy 6. aortic stenosis 7. sepsis 8. acute respiratory failure requiring intubation 9. NSTEMI 10. bacteremia Plan - hold off lasix today as he just had ERCP - renal function is stabilizing - repeat labs in am - monitor closely - GI follow up - discussed with family at bedside Dr Medina
[2016-08-24] MEDS: LACTATED RINGERS SOLUTION 1,000 ML IV SCH (17:28)
[2016-08-24] MEDS: ATORVASTATIN CA 20 MG TABLET (FP) PO SCH (23:03)
[2016-08-25] MEDS: LACTATED RINGERS SOLUTION 1,000 ML IV SCH ×2 (02:14)
[2016-08-25] MEDS ORDERED: LACTATED RINGERS SOLUTION 1,000 ML IV SCH (03:15)
[2016-08-25 08:10] LABS: BASOPHIL 2.4 % (0-2.0); EOSINOPHIL 4.7 % (0-4.5); MCHC 33.5 g/dl (32.0-35.9); MEAN CELL VOLUME 89.4 fl (80-96); MEAN PLT VOLUME 10.1 fl (7.5-11.1); NEUTROPHILS 62.7 % (42.8-82.8); PLATELET COUNT 94 K/MM3 (134-434)
[2016-08-25 08:55] LABS: BILIRUBIN,DIRECT 1.1 mg/dL (0.0-0.2); C-REACTIVE PROTEIN 3.1 MG/DL (0.00-0.3)
--- NOTE | 2016-08-25 08:59 | PN ---
Progress Note (short form) - Note Progress Note: Pot op day#1.S/P ERCP with sphinctrotomy,blloon swaping of CBD and stent placement under GA uneventful.Patient stable.No any anesthesia related problem.Patient DC from the anesthesia care.
[2016-08-25 09:06] LABS: ALBUMIN 2.1 g/dl (3.4-5.0); BILIRUBIN,TOTAL 1.5 mg/dL (0.2-1.0); CALCIUM 7.9 mg/dL (8.5-10.1); COCKROFT - GAULT 23.9; CREATININE 2.8 mg/dL (0.7-1.3); TOT PROT 4.8 g/dl (6.4-8.2)
[2016-08-25] MEDS: CARVEDILOL 6.25 MG TABLET (FP) PO SCH ×2 (10:37→21:59)
[2016-08-25] MEDS: URSODIOL 300 MG CAPSULE PO SCH ×2 (10:37→21:59)
[2016-08-25] MEDS: LEVOFLOXACIN 250 MG IVPB 50 ML IVPB SCH (10:38)
--- NOTE | 2016-08-25 13:26 | PN ---
Physical Exam: SUBJECTIVE: Patient seen and examined. He was sitting in the chair today, asking to go home. States he feels well. Wants to walk with PT OBJECTIVE: Appears comfortable Had ERCP yesterday, POD#1 Will order PT Some congestion of lungs noted, Incentive spirometer ordered OOB to chair Vital Signs Period Temp Pulse Resp BP Sys/Hinkle Pulse Ox Last 24 Hr 97.4 F-98.9 F 54-69 16-20 139-161/46-90 95-99 GENERAL: Patient is awake, alert and in no acute distress - on 2 liters of nasal cannula HEAD: Normal with no signs of trauma. NECK: Normal range of motion, supple without lymphadenopathy, JVD, or masses. LUNGS: anterior/posterior lung sounds diminished, on 2 liters of nasal cannula HEART: Regular rate and rhythm ABDOMEN: very mild redness to periumbilical region. UPPER EXTREMITIES: lower ext with non pitting edema NEUROLOGICAL: Awake, alert, [place] Laboratory Results - last 24 hr 08/25/16 08/25/16 08/25/16 06:30 06:30 06:30 WBC 5.0 RBC 2.91 L Hgb 8.7 L Hct 26.0 L MCV 89.4 MCHC 33.5 RDW 17.0 H Plt Count 94 L MPV 10.1 Neutrophils % 62.7 Lymphocytes % 20.7 Monocytes % 9.5 Eosinophils % 4.7 H Basophils % 2.4 H Sodium 144 Potassium 3.8 Chloride 105 Carbon Dioxide 32 Anion Gap 7 L BUN 32 H Creatinine 2.8 H Creat Clearance w eGFR 21.54 Random Glucose 64 L Calcium 7.9 L Total Bilirubin 1.5 H Direct Bilirubin 1.1 H D AST 21 ALT 10 L Alkaline Phosphatase 273 H C-Reactive Protein 3.1 H D Total Protein 4.8 L Albumin 2.1 L Total Amylase 83 D Lipase 138 Active Medications Generic Name Dose Route Start Last Admin Trade Name Freq PRN Reason Stop Dose Admin Atorvastatin Calcium 20 mg 08/16/16 22:00 08/24/16 23:03 Lipitor - PO 20 mg HS SUBHA Administration Carvedilol 6.25 mg 08/17/16 12:21 08/25/16 10:37 Coreg - PO 6.25 mg BID SUBHA Administration Levofloxacin 50 mls @ 50 mls/hr 08/25/16 10:00 08/25/16 10:38 Levaquin 250 Mg Premixed Ivpb - IVPB 50 mls/hr DAILY SUBHA Administration Ursodiol 300 mg 08/15/16 22:00 08/25/16 10:37 Actigal - PO 300 mg BID SUBHA Administration ASSESSMENT/PLAN: Patient is a 85 year old male with a significant past medical history of hypertension, CAD s/p stent placement, aortic stenosis, porcine valve replacement (takes both ASA 81mg and Plavix 75mg), 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 He was admitted on 08/06/2016 for abdominal pain, acute choledocholithiasis, acute transaminitis, jaundice and leukocytosis with shaking chills. ID: Septic Shock likely secondary to cholangitis with respiratory failure - resolved Assessment/Plan: Extubated 08/14, lactic acidosis resolved Acute Choledocholithiasis with acute cholangitis, ERCP w/ biliary stent on 08/06 S/p ERCP and partial stone extraction with stent placement on on 08/24 Tolerated procedure well On Levaquin 250mg daily after procedure Monitor labs Advance diet as per GI Note reviewed, pt will need outpatient stent removal in a few weeks GI follow up on discharge On Ursodiol 300mg BID GI: Acute Choledocholithiasis/abdominal pain/generalized jaundice/acute transaminitis Assessment/Plan: Cholangitis s/p ERCP with biliary stent placement on 08/07 He is s/p ERCP and partial stone extraction with stent placement on on 08/24 Trend LFT's : Chronic Kidney Disease - acute renal failure/has solitary kidney due to renal cancer with s/p right nephrectomy Assessment/Plan: S/P emergent dialysis during hospitalization Shiley removed on 08/18 Has stone catheter Bun/Creat: 32/2.8 Renal following Cardiology: Hypertension - chronic Assessment/Plan: On Coreq 6.25ng BID ASA/Plavix on hold BP slightly elevated, monitor and titrate meds as needed Monitor heart rate (currently high 50s, low 60s) CAD s/p stent placement On ASA 81mg and Plavix 75mg - on hold Restart ASA and Plavix as per cardiology Hematology: Thrombocytopenia - resolved Assessment/Plan: s/p 1 unit of platelets on 08/14 Thrombocytopenia likely secondary to sepsis HIT panel slightly elevated SCDs stockings, no heparin Monitor platelets F.E.N. Fluids: tolerating PO Electrolytes: within normal limits Nutrition:advance per GI, currently on full liquids Prophylaxis: DVT: SCDs GI: Protonix Code Status: Requires inpatient hospitalization. DNR/DNI. Visit type - Emergency Visit Emergency Visit: Yes ED Registration Date: 08/06/16 Care time: The patient presented to the Emergency Department on the above date and was hospitalized for further evaluation of their emergent condition. - New Patient This patient is new to me today: No - Critical Care Critical Care patient: No - Discharge Referral Referred to [facility] Med P.C.: No
--- NOTE | 2016-08-25 13:29 | PN ---
Progress Note, Physician History of Present Illness: Pt seen and examined at bedside. He is awake and alert. He is out of bed to chair. He denies shortness of breath. - Current Medication List Current Medications: Active Medications Atorvastatin Calcium (Lipitor -) 20 mg PO HS [facility] Last Admin: 08/24/16 23:03 Dose: 20 mg Carvedilol (Coreg -) 6.25 mg PO BID [facility] Last Admin: 08/25/16 10:37 Dose: 6.25 mg Levofloxacin (Levaquin 250 Mg Premixed Ivpb -) 50 mls @ 50 mls/hr IVPB DAILY [facility] Last Admin: 08/25/16 10:38 Dose: 50 mls/hr Ursodiol (Actigal -) 300 mg PO BID [facility] Last Admin: 08/25/16 10:37 Dose: 300 mg - Objective Vital Signs: Vital Signs Temperature 98.1 F 08/25/16 06:00 Pulse Rate 61 08/25/16 06:00 Respiratory Rate 20 08/25/16 06:00 Blood Pressure 152/90 08/25/16 06:00 O2 Sat by Pulse Oximetry (%) 97 08/24/16 22:00 Constitutional: Yes: Calm Eyes: Yes: Conjunctiva Clear HENT: Yes: Atraumatic Cardiovascular: Yes: S1, S2 Respiratory: Yes: On Nasal O2 Gastrointestinal: Yes: Soft. No: Tenderness Genitourinary: Yes: [place] Present Musculoskeletal: Yes: WNL Edema: Yes Edema: LLE: Trace, RLE: Trace Neurological: Yes: Oriented Psychiatric: Yes: Oriented Labs: CBC, BMP 08/25/16 06:30 08/25/16 06:30 INR, PTT INR 1.07 (0.82-1.09) 08/13/16 05:35 Fibrinogen 463.0 mg/dL (238-498) D 08/13/16 05:35 Problem List - Problems (1) CAD (coronary artery disease) Code(s): I25.10 - ATHSCL HEART DISEASE OF [place] CORONARY ARTERY W/O ANG PCTRS Qualifiers: Coronary Disease-Associated Artery/Lesion type: unspecified vessel or lesion type [place] vs. transplanted heart: [place] heart Associated angina: without angina Qualified Code(s): I25.10 - Atherosclerotic heart disease of [place] coronary artery without angina pectoris (2) Calculus of common duct with obstruction Code(s): K80.51 - CALCULUS OF BILE DUCT W/O CHOLANGITIS OR CHOLECYST W OBST (3) Choledocholithiasis Code(s): K80.50 - CALCULUS OF BILE DUCT W/O CHOLANGITIS OR CHOLECYST W/O OBST (4) Renal cancer Code(s): C64.9 - MALIGNANT NEOPLASM OF UNSP KIDNEY, EXCEPT RENAL PELVIS Qualifiers: Laterality: right Qualified Code(s): C64.1 - Malignant neoplasm of right kidney, except renal pelvis (5) CRISS (acute kidney injury) Code(s): N17.9 - ACUTE KIDNEY FAILURE, UNSPECIFIED (6) CKD (chronic kidney disease) Code(s): N18.9 - CHRONIC KIDNEY DISEASE, UNSPECIFIED Assessment/Plan Current Medications Generic Name Dose Route Start Last Admin Trade Name Freq PRN Reason Stop Dose Admin Atorvastatin Calcium 20 mg 08/16/16 22:00 08/24/16 23:03 Lipitor - PO 20 mg HS SUBHA Administration Carvedilol 6.25 mg 08/17/16 12:21 08/25/16 10:37 Coreg - PO 6.25 mg BID SUBHA Administration Levofloxacin 50 mls @ 50 mls/hr 08/25/16 10:00 08/25/16 10:38 Levaquin 250 Mg Premixed Ivpb - IVPB 50 mls/hr DAILY SUBHA Administration Ursodiol 300 mg 08/15/16 22:00 08/25/16 10:37 Actigal - PO 300 mg BID SUBHA Administration Impression 1. CKD stage 3 2. CRISS 3. choledocholithiasis 4. CAD 5. hx of Renal Cell Cancer s/p nephroectomy 6. aortic stenosis 7. sepsis 8. acute respiratory failure requiring intubation 9. NSTEMI 10. bacteremia Plan - renal function is stabilizing - can stop fluids as pt is tolerating diet - pt denies abdominal pain - repeat labs in am - hold off lasix today - will evaluate volume status tomorrow - monitor closely - GI follow up - PT/rehab Dr Medina
--- NOTE | 2016-08-25 13:38 | PN ---
GI Progress Note Subjective: NO C/O FEELS FINE NO N/V/F/C/S PO WITHOUTPROBLEMS S/P ERCP AND STENTING YESTERDAY - Objective Vital Signs: Vital Signs Temperature 98.1 F 08/25/16 06:00 Pulse Rate 61 08/25/16 06:00 Respiratory Rate 20 08/25/16 06:00 Blood Pressure 152/90 08/25/16 06:00 O2 Sat by Pulse Oximetry (%) 97 08/24/16 22:00 Constitutional: Well Nourished, No Distress, Calm Eyes: Yes: WNL (+BS/ SOFT/ NT) Labs: CBC, BMP 08/25/16 06:30 08/25/16 06:30 INR, PTT INR 1.07 (0.82-1.09) 08/13/16 05:35 Fibrinogen 463.0 mg/dL (238-498) D 08/13/16 05:35 Assessment/Plan S/P ERCP AND PARTIAL STONE EXTRACTION AND STENT PLACEMENT NO ADVERSE SEQ. OF PROCEDURE LABS STABLE AND IMPROVING WOULD ADVANCE DIET TOLERATED PT WILL NEED OUTPATIENT STENT REMOVAL IN A FEW WEEKS OFC F/U WITH DR JEN LEDESMA MD
--- NOTE | 2016-08-25 20:11 | PN ---
Progress Note, Physician Chief Complaint: Events noted Seen on 8W. Awake and alert. Not in distress History of Present Illness: Patient was seen and examined. Chart was reviewed Post ERCP with CBD stones and stent placement Denies chest pain, SOB or palpitations - Current Medication List Current Medications: Active Medications Atorvastatin Calcium (Lipitor -) 20 mg PO HS [facility] Last Admin: 08/24/16 23:03 Dose: 20 mg Carvedilol (Coreg -) 6.25 mg PO BID [facility] Last Admin: 08/25/16 10:37 Dose: 6.25 mg Levofloxacin (Levaquin 250 Mg Premixed Ivpb -) 50 mls @ 50 mls/hr IVPB DAILY [facility] Last Admin: 08/25/16 10:38 Dose: 50 mls/hr Ursodiol (Actigal -) 300 mg PO BID [facility] Last Admin: 08/25/16 10:37 Dose: 300 mg - Objective Vital Signs: Vital Signs Temperature 97.2 F L 08/25/16 17:08 Pulse Rate 56 L 08/25/16 17:08 Respiratory Rate 20 08/25/16 17:08 Blood Pressure 148/67 08/25/16 17:08 O2 Sat by Pulse Oximetry (%) 97 08/25/16 09:00 Neck: Yes: Supple Cardiovascular: Yes: Regular Rate and Rhythm, S1, S2 Respiratory: Yes: Diminished Gastrointestinal: Yes: Normal Bowel Sounds, Soft. No: Tenderness Edema: No Labs: CBC, BMP 08/25/16 06:30 08/25/16 06:30 Problem List - Problems (1) Cellulitis, umbilical Code(s): L03.316 - CELLULITIS OF UMBILICUS (2) Choledocholithiasis Code(s): K80.50 - CALCULUS OF BILE DUCT W/O CHOLANGITIS OR CHOLECYST W/O OBST (3) Hypertension Code(s): I10 - ESSENTIAL (PRIMARY) HYPERTENSION Qualifiers: Hypertension type: essential hypertension Qualified Code(s): I10 - Essential (primary) hypertension (4) CAD (coronary artery disease) Code(s): I25.10 - ATHSCL HEART DISEASE OF [place] CORONARY ARTERY W/O ANG PCTRS Qualifiers: Coronary Disease-Associated Artery/Lesion type: unspecified vessel or lesion type [place] vs. transplanted heart: [place] heart Associated angina: without angina Qualified Code(s): I25.10 - Atherosclerotic heart disease of [place] coronary artery without angina pectoris (5) History of percutaneous coronary intervention Code(s): Z98.890 - OTHER SPECIFIED POSTPROCEDURAL STATES (6) Renal cancer Code(s): C64.9 - MALIGNANT NEOPLASM OF UNSP KIDNEY, EXCEPT RENAL PELVIS Qualifiers: Laterality: right Qualified Code(s): C64.1 - Malignant neoplasm of right kidney, except renal pelvis Assessment/Plan 1. Post hypoxemic respiratory failure 2. Biliary septic shock (E. coli), acute cholangitis post ERCP, balloon sphincteroplasty and stent placement - post leukocytosis and lactic acidosis 3. Post TAVR for severe 4. CAD, S/P PCI/stent with demand ischemic injury 5. Severe biventricular failure with pleural effusions 6. Hypertension 7. Renal CA S/P right nephrectomy 8. Acute on CKD referable to septic shock and ATN - recovering off HD 9. 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 Anemia of chronic disease PLAN: 1. GI input noted 2. Diuretic as needed and monitor renal function and electrolytes 3. Antibiotics 4. Continue Carvedilol and Lipitor. Resume ASA when cleared 5. DVT and GI prophylaxis Further plans are to follow Juan Hays MD
[2016-08-25] MEDS: ATORVASTATIN CA 20 MG TABLET (FP) PO SCH (21:59)
[2016-08-26 08:41] LABS: BASOPHIL 1.8 % (0-2.0); EOSINOPHIL 6.7 % (0-4.5); MCH 30.2 pg (25.7-33.7); MCHC 33.6 g/dl (32.0-35.9); MEAN CELL VOLUME 89.7 fl (80-96); MEAN PLT VOLUME 10.3 fl (7.5-11.1); NEUTROPHILS 60.3 % (42.8-82.8); PLATELET COUNT 89 K/MM3 (134-434); RDW 17.3 % (11.9-15.9); WHITE BLOOD COUNT 4.6 K/mm3 (4.0-10.0)
[2016-08-26 08:43] LABS: AMYLASE 55 U/L (25-115)
[2016-08-26 08:58] LABS: BILIRUBIN,TOTAL 1.6 mg/dL (0.2-1.0); CALCIUM 7.9 mg/dL (8.5-10.1); COCKROFT - GAULT 26.77; CREATININE 2.5 mg/dL (0.7-1.3); TOT PROT 4.9 g/dl (6.4-8.2)
[2016-08-26] MEDS: LEVOFLOXACIN 250 MG IVPB 50 ML IVPB SCH (09:25)
[2016-08-26] MEDS: CARVEDILOL 6.25 MG TABLET (FP) PO SCH ×2 (09:25→22:11)
[2016-08-26] MEDS: URSODIOL 300 MG CAPSULE PO SCH ×2 (09:25→22:11)
--- NOTE | 2016-08-26 11:52 | PN ---
Physical Exam: SUBJECTIVE: Patient seen and examined. He denies chest pain or shortness of breath. OBJECTIVE: Appears comfortable, asking to go home Had ERCP yesterday, POD#2 Will order PT for tomorrow, will also need pre and post prior to d/c Some congestion of lungs noted, Incentive spirometer ordered OOB to chair Vital Signs Period Temp Pulse Resp BP Sys/Hinkle Pulse Ox Last 24 Hr 97.2 F-98.4 F 51-62 18-20 124-153/51-67 94-97 GENERAL: Patient is awake, alert and in no acute distress - on 2 liters of nasal cannula HEAD: Normal with no signs of trauma. NECK: Normal range of motion, supple without lymphadenopathy, JVD, or masses. LUNGS: anterior/posterior lung sounds diminished, on 2 liters of nasal cannula HEART: Regular rate and rhythm ABDOMEN: very mild redness to periumbilical region. UPPER EXTREMITIES: lower ext with non pitting edema NEUROLOGICAL: Awake, alert, [place] Laboratory Results - last 24 hr 08/26/16 08/26/16 08/26/16 06:30 06:30 06:30 WBC 4.6 RBC 3.00 L Hgb 9.0 L Hct 26.9 L MCV 89.7 MCHC 33.6 RDW 17.3 H Plt Count 89 L MPV 10.3 Neutrophils % 60.3 Lymphocytes % 20.1 Monocytes % 11.1 H Eosinophils % 6.7 H Basophils % 1.8 Sodium 143 Potassium 3.8 Chloride 103 Carbon Dioxide 29 Anion Gap 11 BUN 29 H Creatinine 2.5 H Creat Clearance w eGFR 24.55 Random Glucose 83 D Calcium 7.9 L Total Bilirubin 1.6 H AST 20 ALT 11 L Alkaline Phosphatase 261 H Total Protein 4.9 L Albumin 2.0 L Total Amylase 55 D Lipase 170 Active Medications Generic Name Dose Route Start Last Admin Trade Name Freq PRN Reason Stop Dose Admin Atorvastatin Calcium 20 mg 08/16/16 22:00 08/25/16 21:59 Lipitor - PO 20 mg HS SUBHA Administration Carvedilol 6.25 mg 08/17/16 12:21 08/26/16 09:25 Coreg - PO 6.25 mg BID SUBHA Administration Levofloxacin 50 mls @ 50 mls/hr 08/25/16 10:00 08/26/16 09:25 Levaquin 250 Mg Premixed Ivpb - IVPB 50 mls/hr DAILY SUBHA Administration Ursodiol 300 mg 08/15/16 22:00 08/26/16 09:25 Actigal - PO 300 mg BID SUBHA Administration ASSESSMENT/PLAN: Patient is a 85 year old male with a significant past medical history of hypertension, CAD s/p stent placement, aortic stenosis, porcine valve replacement (takes both ASA 81mg and Plavix 75mg), 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 He was admitted on 08/06/2016 for abdominal pain, acute choledocholithiasis, acute transaminitis, jaundice and leukocytosis with shaking chills. ID: Septic Shock likely secondary to cholangitis with respiratory failure - resolved Assessment/Plan: Extubated 08/14, lactic acidosis resolved Acute Choledocholithiasis with acute cholangitis, ERCP w/ biliary stent on 08/06 S/p ERCP and partial stone extraction with stent placement on on 08/24 Tolerated procedure well On Levaquin 250mg daily after procedure Monitor labs Advance diet as per GI Note reviewed, pt will need outpatient stent removal in a few weeks GI follow up on discharge On Ursodiol 300mg BID GI: Acute Choledocholithiasis/abdominal pain/generalized jaundice/acute transaminitis Assessment/Plan: Cholangitis s/p ERCP with biliary stent placement on 08/07 He is s/p ERCP and partial stone extraction with stent placement on on 08/24 Trend LFT's : Chronic Kidney Disease - acute renal failure/has solitary kidney due to renal cancer with s/p right nephrectomy Assessment/Plan: S/P emergent dialysis during hospitalization Shiley removed on 08/18 Has stone catheter Bun/Creat: 32/2.8 Renal following Cardiology: Hypertension - chronic Assessment/Plan: On Coreq 6.25ng BID ASA/Plavix on hold BP slightly elevated, monitor and titrate meds as needed Monitor heart rate (currently high 50s, low 60s) CAD s/p stent placement On ASA 81mg and Plavix 75mg - on hold Restart ASA and Plavix as per cardiology Hematology: Thrombocytopenia - resolving Assessment/Plan: s/p 1 unit of platelets on 08/14 Thrombocytopenia likely secondary to sepsis HIT panel slightly elevated SCDs stockings, no heparin Monitor platelets F.E.N. Fluids: tolerating PO Electrolytes: within normal limits Nutrition:advance per GI, currently on full liquids Prophylaxis: DVT: SCDs GI: Protonix Code Status: Requires inpatient hospitalization. DNR/DNI. Visit type - Emergency Visit Emergency Visit: Yes ED Registration Date: 08/06/16 Care time: The patient presented to the Emergency Department on the above date and was hospitalized for further evaluation of their emergent condition. - New Patient This patient is new to me today: No - Critical Care Critical Care patient: No - Discharge Referral Referred to [facility] Med [facility].C[facility] No
--- NOTE | 2016-08-26 13:02 | PN ---
Progress Note, Physician History of Present Illness: Renal F/U Pt tolerating PO diet [place] in place and draining urine No c/o N/V or diarrhea RL infusing at 75 cc/hr - Current Medication List Current Medications: Active Medications Atorvastatin Calcium (Lipitor -) 20 mg PO HS [facility] Last Admin: 08/25/16 21:59 Dose: 20 mg Carvedilol (Coreg -) 6.25 mg PO BID [facility] Last Admin: 08/26/16 09:25 Dose: 6.25 mg Levofloxacin (Levaquin 250 Mg Premixed Ivpb -) 50 mls @ 50 mls/hr IVPB DAILY [facility] Last Admin: 08/26/16 09:25 Dose: 50 mls/hr Ursodiol (Actigal -) 300 mg PO BID [facility] Last Admin: 08/26/16 09:25 Dose: 300 mg - Objective Vital Signs: Vital Signs Temperature 97.9 F 08/26/16 06:00 Pulse Rate 51 L 08/26/16 11:00 Respiratory Rate 18 08/26/16 06:00 Blood Pressure 153/62 08/26/16 06:00 O2 Sat by Pulse Oximetry (%) 94 L 08/26/16 11:00 Constitutional: Yes: No Distress Cardiovascular: Yes: S1, S2 Respiratory: Yes: CTA Bilaterally Gastrointestinal: Yes: Soft. No: Tenderness, Rebound Edema: Yes Labs: CBC, BMP 08/26/16 06:30 08/26/16 06:30 INR, PTT INR 1.07 (0.82-1.09) 08/13/16 05:35 Fibrinogen 463.0 mg/dL (238-498) D 08/13/16 05:35 Assessment/Plan Impression 1. Acute on CKD improved 2. S/P ERCP and stenting 3. choledocholithiasis 4. CAD 5. hx of Renal Cell Cancer s/p nephrectomy 6. aortic stenosis 7. sepsis 8. acute respiratory failure requiring intubation 9. NSTEMI 10. bacteremia Plan D/C the RL Rpt labs in am Dr Banuelos
--- NOTE | 2016-08-26 15:17 | PN ---
GI Progress Note Subjective: GI F/U NO C/O FEELS GREAT AND READY TO GO HOME NO N/V/F/C/S NO PAIN NO JAUNDICE OR PRURITUS PO WIOTHOUT DIFFICULTY OR PAIN - Objective Vital Signs: Vital Signs Temperature 97.9 F 08/26/16 06:00 Pulse Rate 51 L 08/26/16 11:00 Respiratory Rate 18 08/26/16 06:00 Blood Pressure 153/62 08/26/16 06:00 O2 Sat by Pulse Oximetry (%) 94 L 08/26/16 11:00 Constitutional: Well Nourished, No Distress, Calm Eyes: Yes: WNL (+ BS, VERY SOFT AND NT NO M/R/G) Labs: CBC, BMP 08/26/16 06:30 08/26/16 06:30 INR, PTT INR 1.07 (0.82-1.09) 08/13/16 05:35 Fibrinogen 463.0 mg/dL (238-498) D 08/13/16 05:35 Assessment/Plan S/P ERCP AND PARTIAL STONE EXTRACTION AND STENT PLACEMENT ON 08/24 TOLERATED PROCEDURE WELL NO ADVERSE SEQ. OF PROCEDURE LABS STABLE AND IMPROVING LFT'S SOLID DIET PT WILL NEED OUTPATIENT STENT REMOVAL IN A FEW WEEKS OFC F/U WITH DR LI
[2016-08-26] MEDS: ATORVASTATIN CA 20 MG TABLET (FP) PO SCH (22:11)
[2016-08-27 07:58] LABS: BASOPHIL 2.2 % (0-2.0); MCH 30.1 pg (25.7-33.7); MCHC 33.9 g/dl (32.0-35.9); MEAN CELL VOLUME 88.7 fl (80-96); MEAN PLT VOLUME 10.3 fl (7.5-11.1); NEUTROPHILS 59.1 % (42.8-82.8); PLATELET COUNT 91 K/MM3 (134-434); RDW 16.9 % (11.9-15.9); WHITE BLOOD COUNT 4.8 K/mm3 (4.0-10.0)
[2016-08-27 08:24] LABS: ALBUMIN 2.1 g/dl (3.4-5.0); CALCIUM 7.9 mg/dL (8.5-10.1); COCKROFT - GAULT 30.05; CREATININE 2.3 mg/dL (0.7-1.3)
[2016-08-27 08:27] LABS: BILIRUBIN,TOTAL 1.3 mg/dL (0.2-1.0); TOT PROT 4.8 g/dl (6.4-8.2)
[2016-08-27] MEDS: LEVOFLOXACIN 250 MG IVPB 50 ML IVPB SCH (09:54)
[2016-08-27] MEDS: URSODIOL 300 MG CAPSULE PO SCH ×2 (09:55→21:51)
[2016-08-27] MEDS: CARVEDILOL 6.25 MG TABLET (FP) PO SCH ×2 (09:55→21:51)
--- NOTE | 2016-08-27 10:43 | PN ---
Progress Note (short form) - Note Progress Note: PULMONARY Reports increased shortness of breath today. IVF d/c'd yesterday. No cough or wheezing. Last Vital Signs Temp Pulse Resp BP Pulse Ox 98.2 F 59 L 18 168/67 94 L 08/27/16 06:00 08/27/16 06:00 08/27/16 06:00 08/27/16 06:00 08/26/16 21:00 Gen: mildly tachypneic at rest Heart: RRR Lung: scattered rhonchi Abd: soft, nontender Ext: trace edema CBC, BMP 08/27/16 06:30 08/27/16 06:30 Active Medications Atorvastatin Calcium (Lipitor -) 20 mg PO HS [facility] Last Admin: 08/26/16 22:11 Dose: 20 mg Carvedilol (Coreg -) 6.25 mg PO BID [facility] Last Admin: 08/27/16 09:55 Dose: 6.25 mg Levofloxacin (Levaquin 250 Mg Premixed Ivpb -) 50 mls @ 50 mls/hr IVPB DAILY [facility] Last Admin: 08/27/16 09:54 Dose: 50 mls/hr Ursodiol (Actigal -) 300 mg PO BID [facility] Last Admin: 08/27/16 09:55 Dose: 300 mg A/P Acute Cholangitis Gram Negative Bacteremia s/p ERCP/sphincteroplasty/stent placement s/p Acute Hypoxic Respiratory Failure Septic Shock resolving Acute on Chronic Renal Failure requiring HD Lactic Acidosis resolved CAD +Troponins likely Demand Ischemia s/p TAVR for severe Aortic Stenosis Thrombocytopenia - will order CXR, may need lasix today - continue antibiotics - monitor urine output, creatinine - DVT prophylaxis
[2016-08-27] MEDS ORDERED: ALBUTEROL SO4 2.5/IPRATROPIUM 0.5 INH SOL 3 ML VIAL.NEB. NEB PRN (10:44)
--- NOTE | 2016-08-27 11:35 | PN ---
Progress Note, Physician History of Present Illness: No abd pain, afebrile, tolerating diet, reports dyspnea, CXR shows mild congestion. - Current Medication List Current Medications: Active Medications Albuterol/Ipratropium (Duoneb -) 1 amp NEB Q6H PRN PRN Reason: SHORTNESS OF BREATH Atorvastatin Calcium (Lipitor -) 20 mg PO HS [facility] Last Admin: 08/26/16 22:11 Dose: 20 mg Carvedilol (Coreg -) 6.25 mg PO BID [facility] Last Admin: 08/27/16 09:55 Dose: 6.25 mg Levofloxacin (Levaquin 250 Mg Premixed Ivpb -) 50 mls @ 50 mls/hr IVPB DAILY [facility] Last Admin: 08/27/16 09:54 Dose: 50 mls/hr Ursodiol (Actigal -) 300 mg PO BID [facility] Last Admin: 08/27/16 09:55 Dose: 300 mg - Objective Vital Signs: Vital Signs Temperature 98.2 F 08/27/16 06:00 Pulse Rate 59 L 08/27/16 06:00 Respiratory Rate 18 08/27/16 06:00 Blood Pressure 168/67 08/27/16 06:00 O2 Sat by Pulse Oximetry (%) 94 L 08/26/16 21:00 Constitutional: Yes: No Distress, Calm Neck: Yes: Supple Cardiovascular: Yes: Regular Rate and Rhythm, Murmur (2/6 SM) Respiratory: Yes: Regular, Diminished, On Nasal O2 Gastrointestinal: Yes: Normal Bowel Sounds, Soft Edema: Yes Edema: LLE: Trace, RLE: Trace Labs: CBC, BMP 08/27/16 06:30 08/27/16 06:30 INR, PTT INR 1.07 (0.82-1.09) 08/13/16 05:35 Fibrinogen 463.0 mg/dL (238-498) D 08/13/16 05:35 - ....Imaging Chest X-ray: Report Reviewed (Mild congestion) Problem List - Problems (1) CRISS (acute kidney injury) Code(s): N17.9 - ACUTE KIDNEY FAILURE, UNSPECIFIED (2) CAD (coronary artery disease) Code(s): I25.10 - ATHSCL HEART DISEASE OF [place] CORONARY ARTERY W/O ANG PCTRS Qualifiers: Coronary Disease-Associated Artery/Lesion type: unspecified vessel or lesion type [place] vs. transplanted heart: [place] heart Associated angina: without angina Qualified Code(s): I25.10 - Atherosclerotic heart disease of [place] coronary artery without angina pectoris (3) CKD (chronic kidney disease) Code(s): N18.9 - CHRONIC KIDNEY DISEASE, UNSPECIFIED (4) Calculus of common duct with obstruction Code(s): K80.51 - CALCULUS OF BILE DUCT W/O CHOLANGITIS OR CHOLECYST W OBST (5) History of percutaneous coronary intervention Code(s): Z98.890 - OTHER SPECIFIED POSTPROCEDURAL STATES (6) S/P ERCP Code(s): Z98.890 - OTHER SPECIFIED POSTPROCEDURAL STATES (7) Thrombocytopenia Code(s): D69.6 - THROMBOCYTOPENIA, UNSPECIFIED (8) Left bundle branch block Code(s): I44.7 - LEFT BUNDLE-BRANCH BLOCK, UNSPECIFIED (9) Demand ischemia Code(s): I24.8 - OTHER FORMS OF ACUTE ISCHEMIC HEART DISEASE (10) Anemia Code(s): D64.9 - ANEMIA, UNSPECIFIED Qualifiers: Anemia type: unspecified type Qualified Code(s): D64.9 - Anemia, unspecified Assessment/Plan 1. s/p hypoxemic respiratory failure 2. Biliary septic shock (E. coli), acute cholangitis post ERCP, partial stone extraction and stent placement 6/2 with leukocytosis and lactic acidosis resolved 3. Post TAVR for severe 4. CAD, S/P PCI/stent with demand ischemic injury 5. Severe biventricular failure with pleural effusions 6. Hypertension 7. Renal CA S/P right nephrectomy 8. Acute on CKD referable to septic shock and ATN - recovering off HD 9. 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 Anemia of chronic disease PLAN: 1. Wean FIO2 to maintain saO2, BD as needed 2. Monitor renal recovery - Lasix 40 as needed per Renal 3. Complete antibiotics course 4. Continue carvedilol 6.25 bid and Lipitor 20 qhs, resume ASA post-procedure now that Plt count recovers 5. DVT and GI prophylaxis, stent removal as outpatient
[2016-08-27] MEDS ORDERED: FUROSEMIDE 40 MG/4 ML INJECTABLE VIAL IVPB ONE (11:39)
--- NOTE | 2016-08-27 12:17 | PN ---
GI Progress Note Subjective: GI NOte: Pain free. NO adverse reactions to ERCP and stone extraction. Has stent in place. I have again explained to Blane that he now needs to have a cholecystectomy to prevent recurrent cholangitis. I will remove the stent after cholecystectomy. Renal function continues to improve. - Objective Vital Signs: Vital Signs Temperature 98.2 F 08/27/16 06:00 Pulse Rate 59 L 08/27/16 06:00 Respiratory Rate 18 08/27/16 06:00 Blood Pressure 168/67 08/27/16 06:00 O2 Sat by Pulse Oximetry (%) 94 L 08/26/16 21:00 Constitutional: Calm ...Auscultate: Yes: Normoactive Bowel Sounds ...Palpate: Yes: Soft, Other (nontender) Labs: CBC, BMP 08/27/16 06:30 08/27/16 06:30 INR, PTT INR 1.07 (0.82-1.09) 08/13/16 05:35 Fibrinogen 463.0 mg/dL (238-498) D 08/13/16 05:35 Laboratory Tests 08/27/16 06:30 BUN 24 H Creatinine 2.3 H Total Bilirubin 1.3 H AST 20 ALT 10 L Alkaline Phosphatase 260 H Assessment/Plan S/P ERCP and stone extraction with stent placed as had residual stone splinters. Discussed plan with TITA Godwin NP who will notify Dr. Weems to proceed with surgery.
--- NOTE | 2016-08-27 12:25 | PN ---
Physical Exam: SUBJECTIVE: Patient seen and examined at bedside. Voices no complaints. OBJECTIVE: Vital Signs Period Temp Pulse Resp BP Sys/Hinkle Pulse Ox Last 24 Hr 97.6 F-98.2 F 56-59 18-18 148-168/63-70 94 GENERAL: The patient is awake, alert, and fully oriented, in no acute distress. HEAD: Normal with no signs of trauma. EYES: PERRL, extraocular movements intact, sclera anicteric, conjunctiva clear. No ptosis. LUNGS: Breath sounds equal, clear to auscultation bilaterally, no wheezes, no crackles, no accessory muscle use. HEART: Regular rate and rhythm, S1, S2 without murmur, rub or gallop. ABDOMEN: Soft, nontender, nondistended, normoactive bowel sounds, no guarding, no rebound, no hepatosplenomegaly, no masses. EXTREMITIES: 2+ pulses, warm, well-perfused, 2+ edema on RLE, 3+ on LLE NEUROLOGICAL: Cranial nerves II through XII grossly intact. Normal speech, gait not observed. PSYCH: Normal mood, normal affect. Laboratory Results - last 24 hr 08/27/16 08/27/16 06:30 06:30 WBC 4.8 RBC 3.02 L Hgb 9.1 L Hct 26.8 L MCV 88.7 MCHC 33.9 RDW 16.9 H Plt Count 91 L MPV 10.3 Neutrophils % 59.1 Lymphocytes % 20.0 Monocytes % 10.7 H Eosinophils % 8.0 H Basophils % 2.2 H Sodium 144 Potassium 3.7 Chloride 105 Carbon Dioxide 31 Anion Gap 8 BUN 24 H Creatinine 2.3 H Creat Clearance w eGFR 27.03 Random Glucose 85 Calcium 7.9 L Total Bilirubin 1.3 H AST 20 ALT 10 L Alkaline Phosphatase 260 H Total Protein 4.8 L Albumin 2.1 L Active Medications Generic Name Dose Route Start Last Admin Trade Name Freq PRN Reason Stop Dose Admin Albuterol/Ipratropium 1 amp 08/27/16 10:44 Duoneb - NEB Q6H PRN SHORTNESS OF BREATH Aspirin 81 mg 08/27/16 12:15 Ecotrin - PO DAILY SUBHA Atorvastatin Calcium 20 mg 08/16/16 22:00 08/26/16 22:11 Lipitor - PO 20 mg HS SUBHA Administration Carvedilol 6.25 mg 08/17/16 12:21 08/27/16 09:55 Coreg - PO 6.25 mg BID SUBHA Administration Heparin Sodium (Porcine) 5,000 unit 08/27/16 12:15 Heparin - SQ BID SUBHA Levofloxacin 50 mls @ 50 mls/hr 08/25/16 10:00 08/27/16 09:54 Levaquin 250 Mg Premixed Ivpb - IVPB 50 mls/hr DAILY SUB[facility] Administration Ursodiol 300 mg 08/15/16 22:00 08/27/16 09:55 Actigal - PO 300 mg BID SUBHA Administration ASSESSMENT/PLAN 85 year-old male with a significant PMH of HTN, CAD s/p stent placement, aortic stenosis s/p TAVR, ureteral strictures s/p dilatation, and renal cell cancer s/ p right nephrectomy. Admitted for septic shock secondary to acute choledocholithiasis and E. coli bacteremia. Septic shock secondary to acute choledocholilithiasis and cholangitis E.coli bacteremia --afebrile, WBC wnl --completed 10 day course of antibiotics --s/p partial stone extraction and biliary stent placement 08/07 --s/p ERCP and stone extraction 08/24; started on levofloxacin post-procedure; request ID re-consult --now candidate for cholecystectomy, Dr. Weems will see patient tomorrow --continue ursodial Acute on chronic kidney injury --peak Cr 7.2, trending down now 2.3 (baseline 1.6) --off dialysis, shiley removed 08/18 --maintain stone Thrombocytopenia --likely due to sepsis, +HIT antibody --last transfused platelets 08/14 --shikha 38k on 08/10, now 91k Severe biventricular heart failure --08/08 Echo: LV severely reduced, EF 23% significantly reduced since 11/2014 ; septal akinesis, apical akinesis, anterolateeral wall severe hypokinesis, anterior wall akinesis, moderate global hypokinesis; RV moderate to severely reduced; BLAE; moderate MR, mild TR; no AI; cannot be ruled out; trace PI; pleural effusion --08/27 CXR mild congestion unchanged from 08/21 --Lasix PRN CAD s/p stent --hold ASA pending further surgery --continue Lipitor Aortic stenosis s/p tissue AVR --echo does not rule out aortic stenosis --hold Plavix pending further surgery Renal cell cancer s/p nephrectomy --stable Acute respiratory failure, resolved --extubated 08/14 Hypertension --continue carvedilol F/E/N Fluids: PO intake adequate Electrolytes: replete as indicated Nutrition: low sodium; NPO after midnight for possible cholecystectomy tomorrow DVT prophylaxis: NO HEPARIN, mildly HIT+; SCDs, oob Physical therapy Dispo: continues to require inpatient care. DNR/DNI. Visit type - Emergency Visit Emergency Visit: Yes ED Registration Date: 08/06/16 Care time: The patient presented to the Emergency Department on the above date and was hospitalized for further evaluation of their emergent condition. - New Patient This patient is new to me today: Yes Date on this admission: 08/27/16 - Critical Care Critical Care patient: No
[2016-08-27] MEDS: HEPARIN NA (PORCINE) 5,000 UNITS/ML 1ML VIAL SQ SCH ×2 (13:50→21:51)
[2016-08-27] MEDS: ASPIRIN COATED 81 MG TABLET.EC PO SCH (13:50)
--- NOTE | 2016-08-27 15:56 | PN ---
Progress Note, Physician History of Present Illness: Pt seen and examined at bedside. He is awake and alert. He appears comfortable. He complains of shortness of breath with exertion. He does have lower extremity edema. - Current Medication List Current Medications: Active Medications Albuterol/Ipratropium (Duoneb -) 1 amp NEB Q6H PRN PRN Reason: SHORTNESS OF BREATH Last Admin: 08/27/16 11:45 Dose: 1 amp Aspirin (Ecotrin -) 81 mg PO DAILY [facility] Last Admin: 08/27/16 13:50 Dose: Not Given Atorvastatin Calcium (Lipitor -) 20 mg PO HS [facility] Last Admin: 08/26/16 22:11 Dose: 20 mg Carvedilol (Coreg -) 6.25 mg PO BID [facility] Last Admin: 08/27/16 09:55 Dose: 6.25 mg Heparin Sodium (Porcine) (Heparin -) 5,000 unit SQ BID [facility] Last Admin: 08/27/16 13:50 Dose: Not Given Levofloxacin (Levaquin 250 Mg Premixed Ivpb -) 50 mls @ 50 mls/hr IVPB DAILY [facility] Last Admin: 08/27/16 09:54 Dose: 50 mls/hr Ursodiol (Actigal -) 300 mg PO BID [facility] Last Admin: 08/27/16 09:55 Dose: 300 mg - Objective Vital Signs: Vital Signs Temperature 98.2 F 08/27/16 06:00 Pulse Rate 54 L 08/27/16 11:25 Respiratory Rate 18 08/27/16 06:00 Blood Pressure 168/67 08/27/16 06:00 O2 Sat by Pulse Oximetry (%) 98 08/27/16 11:25 Constitutional: Yes: Calm Eyes: Yes: Conjunctiva Clear HENT: Yes: Atraumatic Neck: Yes: Supple Cardiovascular: Yes: S1, S2 Respiratory: Yes: Diminished, On Nasal O2 Gastrointestinal: Yes: Soft Genitourinary: Yes: [place] Present Musculoskeletal: Yes: Muscle Weakness Edema: Yes Edema: LLE: 1+, RLE: 1+ Neurological: Yes: Oriented Psychiatric: Yes: Oriented Labs: CBC, BMP 08/27/16 06:30 08/27/16 06:30 INR, PTT INR 1.07 (0.82-1.09) 08/13/16 05:35 Fibrinogen 463.0 mg/dL (238-498) D 08/13/16 05:35 Problem List - Problems (1) CAD (coronary artery disease) Code(s): I25.10 - ATHSCL HEART DISEASE OF [place] CORONARY ARTERY W/O ANG PCTRS Qualifiers: Coronary Disease-Associated Artery/Lesion type: unspecified vessel or lesion type [place] vs. transplanted heart: [place] heart Associated angina: without angina Qualified Code(s): I25.10 - Atherosclerotic heart disease of [place] coronary artery without angina pectoris (2) Calculus of common duct with obstruction Code(s): K80.51 - CALCULUS OF BILE DUCT W/O CHOLANGITIS OR CHOLECYST W OBST (3) Choledocholithiasis Code(s): K80.50 - CALCULUS OF BILE DUCT W/O CHOLANGITIS OR CHOLECYST W/O OBST (4) Renal cancer Code(s): C64.9 - MALIGNANT NEOPLASM OF UNSP KIDNEY, EXCEPT RENAL PELVIS Qualifiers: Laterality: right Qualified Code(s): C64.1 - Malignant neoplasm of right kidney, except renal pelvis (5) CRISS (acute kidney injury) Code(s): N17.9 - ACUTE KIDNEY FAILURE, UNSPECIFIED (6) CKD (chronic kidney disease) Code(s): N18.9 - CHRONIC KIDNEY DISEASE, UNSPECIFIED Assessment/Plan Current Medications Generic Name Dose Route Start Last Admin Trade Name Freq PRN Reason Stop Dose Admin Albuterol/Ipratropium 1 amp 08/27/16 10:44 08/27/16 11:45 Duoneb - NEB 1 amp Q6H PRN Administration SHORTNESS OF BREATH Aspirin 81 mg 08/27/16 12:15 08/27/16 13:50 Ecotrin - PO Not Given DAILY [facility] Atorvastatin Calcium 20 mg 08/16/16 22:00 08/26/16 22:11 Lipitor - PO 20 mg HS [facility] Administration Carvedilol 6.25 mg 08/17/16 12:21 08/27/16 09:55 Coreg - PO 6.25 mg BID [facility] Administration Heparin Sodium (Porcine) 5,000 unit 08/27/16 12:15 08/27/16 13:50 Heparin - SQ Not Given BID [facility] Levofloxacin 50 mls @ 50 mls/hr 08/25/16 10:00 08/27/16 09:54 Levaquin 250 Mg Premixed Ivpb - IVPB 50 mls/hr DAILY [facility] Administration Ursodiol 300 mg 08/15/16 22:00 08/27/16 09:55 Actigal - PO 300 mg BID [facility] Administration Impression 1. CKD stage 3 2. CRISS which required several HD sessions 3. choledocholithiasis 4. CAD 5. hx of Renal Cell Cancer s/p nephroectomy 6. aortic stenosis 7. sepsis 8. acute respiratory failure requiring intubation 9. NSTEMI 10. bacteremia Plan - renal function is improved today - agree with dose of lasix - repeat labs in am - surgery follow up - pt may go for cholecystectomy today, can d/c [place] in am - monitor closely - GI follow up - PT/rehab - discussed plan with pt and his family Dr Medina
[2016-08-27] MEDS: ATORVASTATIN CA 20 MG TABLET (FP) PO SCH (21:51)
[2016-08-28 07:24] LABS: BASOPHIL 2.1 % (0-2.0); EOSINOPHIL 7.8 % (0-4.5); MCHC 33.7 g/dl (32.0-35.9); MEAN CELL VOLUME 89.2 fl (80-96); MEAN PLT VOLUME 10.2 fl (7.5-11.1); NEUTROPHILS 55.6 % (42.8-82.8); PLATELET COUNT 88 K/MM3 (134-434); RDW 16.8 % (11.9-15.9); WHITE BLOOD COUNT 4.2 K/mm3 (4.0-10.0)
[2016-08-28 07:51] LABS: ALBUMIN 2.1 g/dl (3.4-5.0); CALCIUM 8.2 mg/dL (8.5-10.1); MAGNESIUM 1.7 mg/dL (1.8-2.4)
[2016-08-28 07:55] LABS: BILIRUBIN,TOTAL 1.3 mg/dL (0.2-1.0); COCKROFT - GAULT 28.79; CREATININE 2.4 mg/dL (0.7-1.3); PHOSPHOROUS 3.2 mg/dL (2.5-4.9); TOT PROT 4.8 g/dl (6.4-8.2)
[2016-08-28] MEDS: CARVEDILOL 6.25 MG TABLET (FP) PO SCH ×2 (10:06→21:42)
[2016-08-28] MEDS: ASPIRIN COATED 81 MG TABLET.EC PO SCH ×2 (10:06→12:32)
[2016-08-28] MEDS: URSODIOL 300 MG CAPSULE PO SCH ×2 (10:06→21:42)
[2016-08-28] MEDS: LEVOFLOXACIN 250 MG IVPB 50 ML IVPB SCH (10:07)
[2016-08-28] MEDS: HEPARIN NA (PORCINE) 5,000 UNITS/ML 1ML VIAL SQ SCH (10:07)
--- NOTE | 2016-08-28 10:30 | PN ---
Progress Note (short form) - Note Progress Note: PULMONARY Diuresed well after lasix dose yesterday with improvement in dyspnea. Last Vital Signs Temp Pulse Resp BP Pulse Ox 98 F 56 L 20 152/62 96 08/28/16 09:59 08/28/16 09:59 08/28/16 09:59 08/28/16 09:59 08/27/16 21:00 Intake & Output 08/25/16 08/26/16 08/27/16 08/28/16 23:59 23:59 23:59 23:59 Intake Total 2140 820 810 Output Total 1000 1000 3300 900 Balance 1140 -180 -2490 -900 Weight 200 lb 7 oz 200 lb 7 oz 207 lb Gen: less tachypneic Heart: RRR Lung: rare rhonchi Abd: soft, nontender Ext: less edema CBC, BMP 08/28/16 06:30 08/28/16 06:30 Active Medications Albuterol/Ipratropium (Duoneb -) 1 amp NEB Q6H PRN PRN Reason: SHORTNESS OF BREATH Last Admin: 08/27/16 11:45 Dose: 1 amp Aspirin (Ecotrin -) 81 mg PO DAILY [facility] Last Admin: 08/28/16 10:06 Dose: 81 mg Atorvastatin Calcium (Lipitor -) 20 mg PO HS [facility] Last Admin: 08/27/16 21:51 Dose: 20 mg Carvedilol (Coreg -) 6.25 mg PO BID [facility] Last Admin: 08/28/16 10:06 Dose: 6.25 mg Heparin Sodium (Porcine) (Heparin -) 5,000 unit SQ BID [facility] Last Admin: 08/28/16 10:07 Dose: 5,000 unit Levofloxacin (Levaquin 250 Mg Premixed Ivpb -) 50 mls @ 50 mls/hr IVPB DAILY [facility] Last Admin: 08/28/16 10:07 Dose: 50 mls/hr Ursodiol (Actigal -) 300 mg PO BID [facility] Last Admin: 08/28/16 10:06 Dose: 300 mg A/P Acute Cholangitis Gram Negative Bacteremia s/p ERCP/sphincteroplasty/stent placement s/p Acute Hypoxic Respiratory Failure Septic Shock resolving Acute on Chronic Renal Failure improving Lactic Acidosis resolved CAD +Troponins likely Demand Ischemia s/p TAVR for severe Aortic Stenosis Thrombocytopenia - daily assessment of lasix - continue antibiotics - monitor urine output, creatinine - DVT prophylaxis - can proceed with cholecystectomy from pulmonary standpoint
--- NOTE | 2016-08-28 11:45 | PN ---
Progress Note (short form) - Note Progress Note: doing well no fevers no abdominal pain s/p ercp with stent 08/24, has been on levaquin post procedure Vital Signs Period Temp Pulse Resp BP Sys/Hinkle Pulse Ox Last 24 Hr 98 F-98.9 F 55-70 18-20 119-152/54-65 96 cor-rrr lungs clear abd soft,nt ext no edema CBC, BMP 08/28/16 06:30 08/28/16 06:30 lfts improving Microbiology 08/10/16 19:20 Blood - Peripheral Venous Blood Culture - Final NO GROWTH AFTER 5 DAYS INCUBATION 08/10/16 18:50 Blood - Peripheral Venous Blood Culture - Final NO GROWTH AFTER 5 DAYS INCUBATION 08/06/16 18:30 Abdomen Gram Stain - Final 08/06/16 18:30 Abdomen Wound Culture - Final Staphylococcus Coagulase Neg Diphtheroid/Corynebacterium Streptococcus Viridans 08/07/16 10:42 Blood - Peripheral Venous Blood Culture - Final Escherichia Coli 08/07/16 10:40 Blood - Peripheral Venous Blood Culture - Final Escherichia Coli Current Medications Albuterol/Ipratropium (Duoneb -) 1 amp NEB Q6H PRN PRN Reason: SHORTNESS OF BREATH Last Admin: 08/27/16 11:45 Dose: 1 amp Aspirin (Ecotrin -) 81 mg PO DAILY [facility] Last Admin: 08/28/16 10:06 Dose: 81 mg Atorvastatin Calcium (Lipitor -) 20 mg PO HS [facility] Last Admin: 08/27/16 21:51 Dose: 20 mg Carvedilol (Coreg -) 6.25 mg PO BID [facility] Last Admin: 08/28/16 10:06 Dose: 6.25 mg Heparin Sodium (Porcine) (Heparin -) 5,000 unit SQ BID [facility] Last Admin: 08/28/16 10:07 Dose: 5,000 unit Levofloxacin (Levaquin 250 Mg Premixed Ivpb -) 50 mls @ 50 mls/hr IVPB DAILY [facility] Last Admin: 08/28/16 10:07 Dose: 50 mls/hr Ursodiol (Actigal -) 300 mg PO BID [facility] Last Admin: 08/28/16 10:06 Dose: 300 mg imp/reccd s/p sepsis with ecoli bacteremia-resolved biliary sepsis/resp failure/dilcia (one kidney)- resolved s/p cbd stent hx TAVR +troponins CKD d/c antibiotics f/u with surgery
--- NOTE | 2016-08-28 12:28 | PN ---
Physical Exam: SUBJECTIVE: Patient seen and examined OBJECTIVE: Vital Signs Period Temp Pulse Resp BP Sys/Hinkle Pulse Ox Last 24 Hr 98 F-98.9 F 55-70 18-20 119-152/54-65 96 GENERAL: The patient is awake, alert, and fully oriented, in no acute distress. HEAD: Normal with no signs of trauma. EYES: PERRL, extraocular movements intact, sclera anicteric, conjunctiva clear. No ptosis. ENT: Ears normal, nares patent, oropharynx clear without exudates, moist mucous membranes. NECK: Trachea midline, full range of motion, supple. LUNGS: Breath sounds equal, clear to auscultation bilaterally, no wheezes, no crackles, no accessory muscle use. HEART: Regular rate and rhythm, S1, S2 without murmur, rub or gallop. ABDOMEN: Soft, nontender, nondistended, normoactive bowel sounds, no guarding, no rebound, no hepatosplenomegaly, no masses. EXTREMITIES: 2+ pulses, warm, well-perfused, no edema. NEUROLOGICAL: Cranial nerves II through XII grossly intact. Normal speech, gait not observed. PSYCH: Normal mood, normal affect. SKIN: Warm, dry, normal turgor, no rashes or lesions noted Laboratory Results - last 24 hr 08/28/16 08/28/16 06:30 06:30 WBC 4.2 RBC 3.10 L Hgb 9.3 L Hct 27.6 L MCV 89.2 MCHC 33.7 RDW 16.8 H Plt Count 88 L MPV 10.2 Neutrophils % 55.6 Lymphocytes % 23.9 Monocytes % 10.6 H Eosinophils % 7.8 H Basophils % 2.1 H Sodium 144 Potassium 3.7 Chloride 105 Carbon Dioxide 31 Anion Gap 8 BUN 23 H Creatinine 2.4 H Creat Clearance w eGFR 25.74 Random Glucose 81 Calcium 8.2 L Phosphorus 3.2 D Magnesium 1.7 L Total Bilirubin 1.3 H AST 18 ALT 9 L Alkaline Phosphatase 243 H Total Protein 4.8 L Albumin 2.1 L Active Medications Generic Name Dose Route Start Last Admin Trade Name Freq PRN Reason Stop Dose Admin Albuterol/Ipratropium 1 amp 08/27/16 10:44 08/27/16 11:45 Duoneb - NEB 1 amp Q6H PRN Administration SHORTNESS OF BREATH Aspirin 81 mg 08/27/16 12:15 08/28/16 10:06 Ecotrin - PO 81 mg DAILY [facility] Administration Atorvastatin Calcium 20 mg 08/16/16 22:00 08/27/16 21:51 Lipitor - PO 20 mg HS [facility] Administration Carvedilol 6.25 mg 08/17/16 12:21 08/28/16 10:06 Coreg - PO 6.25 mg BID [facility] Administration Heparin Sodium (Porcine) 5,000 unit 08/27/16 12:15 08/28/16 10:07 Heparin - SQ 5,000 unit BID [facility] Administration Ursodiol 300 mg 08/15/16 22:00 08/28/16 10:06 Actigal - PO 300 mg BID [facility] Administration ASSESSMENT/PLAN: Continue to hold ASA, Plavix Hold subq heparin Saturday NPO Saturday midnight
--- NOTE | 2016-08-28 14:37 | PN ---
Progress Note (short form) - Note Progress Note: No acute events S/P ERCP 08/24/16 with stone extraction, sphincterotomy, stent placement No pain On diet Vital Signs Period Temp Pulse Resp BP Sys/Hinkle Pulse Ox Last 24 Hr 98 F-98.9 F 56-70 18-20 119-152/56-65 96-96 Abd soft, NT, ND CBC,CMP WBC 4.2 K/mm3 (4.0-10.0) 08/28/16 06:30 RBC 3.10 M/mm3 (4.00-5.60) L 08/28/16 06:30 Hgb 9.3 GM/dL (11.7-16.9) L 08/28/16 06:30 Hct 27.6 % (35.4-49) L 08/28/16 06:30 MCV 89.2 fl (80-96) 08/28/16 06:30 MCHC 33.7 g/dl (32.0-35.9) 08/28/16 06:30 RDW 16.8 % (11.9-15.9) H 08/28/16 06:30 Plt Count 88 K/MM3 (134-434) L 08/28/16 06:30 MPV 10.2 fl (7.5-11.1) 08/28/16 06:30 Neutrophils % 55.6 % (42.8-82.8) 08/28/16 06:30 Lymphocytes % 23.9 % (8-40) 08/28/16 06:30 Monocytes % 10.6 % (3.8-10.2) H 08/28/16 06:30 Eosinophils % 7.8 % (0-4.5) H 08/28/16 06:30 Basophils % 2.1 % (0-2.0) H 08/28/16 06:30 Band Neutrophils 11.0 % (0-10) H D 08/08/16 05:15 Metamyelocytes 5 % (0-2) H D 08/07/16 20:30 Myelocytes 9 % (0-2) H D 08/07/16 20:30 Differential Comment Manual diff done 08/23/16 06:30 Dohle Bodies 1+ 08/08/16 05:15 Platelet Estimate Decreased (NORMAL) 08/23/16 06:30 Platelet Comment No clumping noted 08/08/16 05:15 Polychromasia Few 08/08/16 05:15 Hypochromic-Microcytic Few 08/08/16 05:15 Sodium 144 mmol/L (136-145) 08/28/16 06:30 Potassium 3.7 mmol/L (3.5-5.1) 08/28/16 06:30 Chloride 105 mmol/L (98-107) 08/28/16 06:30 Carbon Dioxide 31 mmol/L (21-32) 08/28/16 06:30 Anion Gap 8 (8-16) 08/28/16 06:30 BUN 23 mg/dL (7-18) H 08/28/16 06:30 Creatinine 2.4 mg/dL (0.7-1.3) H 08/28/16 06:30 Creat Clearance w eGFR 25.74 (>60) 08/28/16 06:30 Random Glucose 81 mg/dL (74-106) 08/28/16 06:30 Lactic Acid 1.684 mmol/L (0.4-2.0) 08/08/16 13:20 Calcium 8.2 mg/dL (8.5-10.1) L 08/28/16 06:30 Phosphorus 3.2 mg/dL (2.5-4.9) D 08/28/16 06:30 Magnesium 1.7 mg/dL (1.8-2.4) L 08/28/16 06:30 Total Bilirubin 1.3 mg/dL (0.2-1.0) H 08/28/16 06:30 Direct Bilirubin 1.1 mg/dL (0.0-0.2) H D 08/25/16 06:30 AST 18 U/L (15-37) 08/28/16 06:30 ALT 9 U/L (12-78) L 08/28/16 06:30 Alkaline Phosphatase 243 U/L (45-117) H 08/28/16 06:30 Creatine Kinase 60 IU/L (39-308) 08/11/16 00:00 Creatine Kinase Index 11.8 % (0.0-5.0) H* 08/08/16 13:20 CK-MB (CK-2) 18.446 ng/ml (0.5-3.6) H 08/08/16 13:20 CK-MB (CK-2) Rel Index Cancelled 08/08/16 13:20 Troponin I 1.73 ng/ml (0.00-0.05) H* 08/11/16 05:15 C-Reactive Protein 3.1 MG/DL (0.00-0.3) H D 08/25/16 06:30 Total Protein 4.8 g/dl (6.4-8.2) L 08/28/16 06:30 Albumin 2.1 g/dl (3.4-5.0) L 08/28/16 06:30 Total Amylase 55 U/L (25-115) D 08/26/16 06:30 Lipase 170 U/L (73-393) 08/26/16 06:30 LFTs improving Cardiology for clearance Hold ASA Plan for cholecystectomy 08/30/16 Problem List - Problems (1) Umbilical discharge Code(s): R19.8 - OTH SYMPTOMS AND SIGNS INVOLVING THE DGSTV SYS AND ABDOMEN
--- NOTE | 2016-08-28 14:39 | PATH ---
Surgical Pathology Report Patient Name: MAGGIE CHOWDARY Med. Rec. #: [id number] /Age/Gender: 1930 (Age: 85) / M Account: [id number] Location: [facility] MED/SURG Taken: 08/24/2016 Received: 08/27/2016 Reported: 08/28/2016 Physicians: Ignacio Parks M.D. Specimen(s) Received FOREIGN BODY(STENT) Clinical History Cholelithiasis Final Diagnosis FOREIGN BODY (STENT), REMOVAL: STENT (GROSS EXAM). Electronically Signed Daquan Castillo M.D. Gross Description Received fresh labeled "biopsy foreign body (stent)" is a 20 cm in length blue, coiled portion of tubing, consistent with a stent. No soft tissue is present. No sections are submitted, gross only. 08/27/2016 [facility]08/27/2016
--- NOTE | 2016-08-28 14:44 | PN ---
Progress Note, Physician History of Present Illness: Pt seen and examined at bedside. He is awake and alert. He feels that his breathing is improved. - Current Medication List Current Medications: Active Medications Albuterol/Ipratropium (Duoneb -) 1 amp NEB Q6H PRN PRN Reason: SHORTNESS OF BREATH Last Admin: 08/27/16 11:45 Dose: 1 amp Aspirin (Ecotrin -) 81 mg PO DAILY [facility] Last Admin: 08/28/16 12:32 Dose: Not Given Atorvastatin Calcium (Lipitor -) 20 mg PO HS [facility] Last Admin: 08/27/16 21:51 Dose: 20 mg Carvedilol (Coreg -) 6.25 mg PO BID [facility] Last Admin: 08/28/16 10:06 Dose: 6.25 mg Heparin Sodium (Porcine) (Heparin -) 5,000 unit SQ BID [facility] Last Admin: 08/28/16 10:07 Dose: 5,000 unit Ursodiol (Actigal -) 300 mg PO BID [facility] Last Admin: 08/28/16 10:06 Dose: 300 mg - Objective Vital Signs: Vital Signs Temperature 98 F 08/28/16 09:59 Pulse Rate 56 L 08/28/16 09:59 Respiratory Rate 20 08/28/16 09:59 Blood Pressure 152/62 08/28/16 09:59 O2 Sat by Pulse Oximetry (%) 96 08/28/16 13:29 Constitutional: Yes: Calm Eyes: Yes: Conjunctiva Clear HENT: Yes: Atraumatic Neck: Yes: Supple Cardiovascular: Yes: S1, S2 Respiratory: Yes: On Nasal O2 Gastrointestinal: Yes: Soft Genitourinary: Yes: Stone Present Musculoskeletal: Yes: Muscle Weakness Edema: Yes Neurological: Yes: Oriented Psychiatric: Yes: Oriented Labs: CBC, BMP 08/28/16 06:30 08/28/16 06:30 INR, PTT INR 1.07 (0.82-1.09) 08/13/16 05:35 Fibrinogen 463.0 mg/dL (238-498) D 08/13/16 05:35 Problem List - Problems (1) CAD (coronary artery disease) Code(s): I25.10 - ATHSCL HEART DISEASE OF [place] CORONARY ARTERY W/O ANG PCTRS Qualifiers: Coronary Disease-Associated Artery/Lesion type: unspecified vessel or lesion type [place] vs. transplanted heart: [place] heart Associated angina: without angina Qualified Code(s): I25.10 - Atherosclerotic heart disease of [place] coronary artery without angina pectoris (2) Calculus of common duct with obstruction Code(s): K80.51 - CALCULUS OF BILE DUCT W/O CHOLANGITIS OR CHOLECYST W OBST (3) Choledocholithiasis Code(s): K80.50 - CALCULUS OF BILE DUCT W/O CHOLANGITIS OR CHOLECYST W/O OBST (4) Renal cancer Code(s): C64.9 - MALIGNANT NEOPLASM OF UNSP KIDNEY, EXCEPT RENAL PELVIS Qualifiers: Laterality: right Qualified Code(s): C64.1 - Malignant neoplasm of right kidney, except renal pelvis (5) CRISS (acute kidney injury) Code(s): N17.9 - ACUTE KIDNEY FAILURE, UNSPECIFIED (6) CKD (chronic kidney disease) Code(s): N18.9 - CHRONIC KIDNEY DISEASE, UNSPECIFIED Assessment/Plan Current Medications Generic Name Dose Route Start Last Admin Trade Name Freq PRN Reason Stop Dose Admin Albuterol/Ipratropium 1 amp 08/27/16 10:44 08/27/16 11:45 Duoneb - NEB 1 amp Q6H PRN Administration SHORTNESS OF BREATH Aspirin 81 mg 08/27/16 12:15 08/28/16 12:32 Ecotrin - PO Not Given DAILY [facility] Atorvastatin Calcium 20 mg 08/16/16 22:00 08/27/16 21:51 Lipitor - PO 20 mg HS [facility] Administration Carvedilol 6.25 mg 08/17/16 12:21 08/28/16 10:06 Coreg - PO 6.25 mg BID [facility] Administration Heparin Sodium (Porcine) 5,000 unit 08/27/16 12:15 08/28/16 10:07 Heparin - SQ 5,000 unit BID [facility] Administration Ursodiol 300 mg 08/15/16 22:00 08/28/16 10:06 Actigal - PO 300 mg BID [facility] Administration Impression 1. CKD stage 3 2. CRISS which required several HD sessions 3. choledocholithiasis 4. CAD 5. hx of Renal Cell Cancer s/p nephroectomy 6. aortic stenosis 7. sepsis 8. acute respiratory failure requiring intubation 9. NSTEMI 10. bacteremia Plan - will give another dose of PO lasix - repeat labs in am - monitor urine output - d/c stone in am with voiding trial - monitor closely - PT/rehab Dr Medina
[2016-08-28] MEDS ORDERED: FUROSEMIDE 40 MG TABLET (FP) PO ONE (14:45)
--- NOTE | 2016-08-28 16:34 | PN ---
Progress Note, Physician Chief Complaint: Events noted Awake and alert. Not in distress Await cholecystectomy on History of Present Illness: Patient was seen and examined. Chart was reviewed Post ERCP with CBD stones and stent placement - now awaits cholecystectomy Denies chest pain, SOB or palpitations - Current Medication List Current Medications: Active Medications Albuterol/Ipratropium (Duoneb -) 1 amp NEB Q6H PRN PRN Reason: SHORTNESS OF BREATH Last Admin: 08/27/16 11:45 Dose: 1 amp Aspirin (Ecotrin -) 81 mg PO DAILY [facility] Last Admin: 08/28/16 12:32 Dose: Not Given Atorvastatin Calcium (Lipitor -) 20 mg PO HS [facility] Last Admin: 08/27/16 21:51 Dose: 20 mg Carvedilol (Coreg -) 6.25 mg PO BID [facility] Last Admin: 08/28/16 10:06 Dose: 6.25 mg Heparin Sodium (Porcine) (Heparin -) 5,000 unit SQ BID [facility] Last Admin: 08/28/16 10:07 Dose: 5,000 unit Ursodiol (Actigal -) 300 mg PO BID [facility] Last Admin: 08/28/16 10:06 Dose: 300 mg - Objective Vital Signs: Vital Signs Temperature 98.4 F 08/28/16 16:08 Pulse Rate 70 08/28/16 16:08 Respiratory Rate 16 08/28/16 16:08 Blood Pressure 119/56 08/28/16 16:08 O2 Sat by Pulse Oximetry (%) 96 08/28/16 13:29 Neck: Yes: Supple Cardiovascular: Yes: Regular Rate and Rhythm, Murmur (Soft SM), S1, S2 Respiratory: Yes: Diminished Gastrointestinal: Yes: Normal Bowel Sounds, Soft. No: Tenderness Edema: Yes Edema: LLE: Trace, RLE: Trace Additional Findings/Remarks: - Review of Systems Constitutional: denies: Chills, Fever Cardiovascular: denies: Shortness of Breath. denies: Chest Pain, Palpitations Respiratory: denies: SOB. denies: Cough, Hemoptysis, Orthopnea, PND, SOB on Exertion, Wheezing Gastrointestinal: denies: Abdominal Pain, Constipation, Diarrhea, Melena, Nausea , Rectal Bleeding, Vomiting Musculoskeletal: denies: Joint Pain Neurological: denies: Dizziness, Headache, Numbness, Seizure, Syncope, Unsteady Gait, Weakness Labs: CBC, BMP 08/28/16 06:30 08/28/16 06:30 Problem List - Problems (1) Cellulitis, umbilical Code(s): L03.316 - CELLULITIS OF UMBILICUS (2) Choledocholithiasis Code(s): K80.50 - CALCULUS OF BILE DUCT W/O CHOLANGITIS OR CHOLECYST W/O OBST (3) Hypertension Code(s): I10 - ESSENTIAL (PRIMARY) HYPERTENSION Qualifiers: Hypertension type: essential hypertension Qualified Code(s): I10 - Essential (primary) hypertension (4) CAD (coronary artery disease) Code(s): I25.10 - ATHSCL HEART DISEASE OF [place] CORONARY ARTERY W/O ANG PCTRS Qualifiers: Coronary Disease-Associated Artery/Lesion type: unspecified vessel or lesion type [place] vs. transplanted heart: [place] heart Associated angina: without angina Qualified Code(s): I25.10 - Atherosclerotic heart disease of [place] coronary artery without angina pectoris (5) History of percutaneous coronary intervention Code(s): Z98.890 - OTHER SPECIFIED POSTPROCEDURAL STATES (6) Renal cancer Code(s): C64.9 - MALIGNANT NEOPLASM OF UNSP KIDNEY, EXCEPT RENAL PELVIS Qualifiers: Laterality: right Qualified Code(s): C64.1 - Malignant neoplasm of right kidney, except renal pelvis Assessment/Plan 1. Post hypoxemic respiratory failure 2. Biliary septic shock (E. coli), acute cholangitis post ERCP, balloon sphincteroplasty and stent placement - post leukocytosis and lactic acidosis 3. Post TAVR for severe 4. CAD, S/P PCI/stent with demand ischemic injury 5. Severe biventricular failure with pleural effusions 6. Hypertension 7. Renal CA S/P right nephrectomy 8. Acute on CKD referable to septic shock and ATN - recovering off HD 9. 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 Anemia of chronic disease PLAN: 1. There is no absolute contraindication in proceeding with cholecystectomy in view of absence of ischemic symptoms, decompensated congestive heart failure or malignant arrhythmias although with understanding increased cardiovascular risk. Post operative ECG and cardiac enzyme recommended 2. Diuretic as needed and monitor renal function and electrolytes 3. Antibiotics 4. Continue Carvedilol and Lipitor. Consider discontinuing ASA for now and then restart after surgery. 5. DVT and GI prophylaxis Further plans are to follow Juan Hays MD
--- NOTE | 2016-08-28 17:16 | PN ---
Physical Exam: SUBJECTIVE: Patient seen and examined at bedside. OBJECTIVE: Vital Signs Period Temp Pulse Resp BP Sys/Hinkle Pulse Ox Last 24 Hr 98 F-98.9 F 56-70 16-20 119-152/56-65 96-96 GENERAL: The patient is awake, alert, and fully oriented, in no acute distress. HEAD: Normal with no signs of trauma. EYES: PERRL, extraocular movements intact, sclera anicteric, conjunctiva clear. No ptosis. LUNGS: Breath sounds equal, clear to auscultation bilaterally, no wheezes, no crackles, no accessory muscle use. HEART: Regular rate and rhythm, S1, S2 without murmur, rub or gallop. ABDOMEN: Soft, nontender, nondistended, normoactive bowel sounds, no guarding, no rebound, no hepatosplenomegaly, no masses. EXTREMITIES: 2+ pulses, warm, well-perfused, bilateral edema improved, 1-2+ bilaterally NEUROLOGICAL: Cranial nerves II through XII grossly intact. Normal speech, gait not observed. PSYCH: Normal mood, normal affect. Laboratory Results - last 24 hr 08/28/16 08/28/16 06:30 06:30 WBC 4.2 RBC 3.10 L Hgb 9.3 L Hct 27.6 L MCV 89.2 MCHC 33.7 RDW 16.8 H Plt Count 88 L MPV 10.2 Neutrophils % 55.6 Lymphocytes % 23.9 Monocytes % 10.6 H Eosinophils % 7.8 H Basophils % 2.1 H Sodium 144 Potassium 3.7 Chloride 105 Carbon Dioxide 31 Anion Gap 8 BUN 23 H Creatinine 2.4 H Creat Clearance w eGFR 25.74 Random Glucose 81 Calcium 8.2 L Phosphorus 3.2 D Magnesium 1.7 L Total Bilirubin 1.3 H AST 18 ALT 9 L Alkaline Phosphatase 243 H Total Protein 4.8 L Albumin 2.1 L Active Medications Generic Name Dose Route Start Last Admin Trade Name Freq PRN Reason Stop Dose Admin Albuterol/Ipratropium 1 amp 08/27/16 10:44 08/27/16 11:45 Duoneb - NEB 1 amp Q6H PRN Administration SHORTNESS OF BREATH Aspirin 81 mg 08/27/16 12:15 08/28/16 12:32 Ecotrin - PO Not Given DAILY SUBHA Atorvastatin Calcium 20 mg 08/16/16 22:00 08/27/16 21:51 Lipitor - PO 20 mg HS SUBHA Administration Carvedilol 6.25 mg 08/17/16 12:21 08/28/16 10:06 Coreg - PO 6.25 mg BID SUBHA Administration Heparin Sodium (Porcine) 5,000 unit 08/27/16 12:15 08/28/16 10:07 Heparin - SQ 5,000 unit BID SUBHA Administration Ursodiol 300 mg 08/15/16 22:00 08/28/16 10:06 Actigal - PO 300 mg BID SUBHA Administration ASSESSMENT/PLAN 85 year-old male with a significant PMH of HTN, CAD s/p stent placement, aortic stenosis s/p TAVR, ureteral strictures s/p dilatation, and renal cell cancer s/ p right nephrectomy. Admitted for septic shock secondary to acute choledocholithiasis and E. coli bacteremia. Septic shock secondary to acute choledocholilithiasis and cholangitis E.coli bacteremia --afebrile, WBC wnl --completed 10 day course of antibiotics --s/p partial stone extraction and biliary stent placement 08/07 --s/p ERCP and stone extraction 08/24; started on levofloxacin post-procedure; request ID re-consult --cholecystectomy scheduled for 08/30, cardiac screening done --continue ursodial Acute on chronic kidney injury --peak Cr 7.2, 2.4 today (baseline 1.6) --off dialysis, shiley removed 08/18 --maintain stone Thrombocytopenia --likely due to sepsis, +HIT antibody --last transfused platelets 08/14 --shikha 38k on 08/10, now 88k Severe biventricular heart failure --08/08 Echo: LV severely reduced, EF 23% significantly reduced since 11/2014 ; septal akinesis, apical akinesis, anterolateeral wall severe hypokinesis, anterior wall akinesis, moderate global hypokinesis; RV moderate to severely reduced; BLAE; moderate MR, mild TR; no AI; cannot be ruled out; trace PI; pleural effusion --08/27 CXR mild congestion unchanged from 08/21 --Lasix PRN --repeat CXR in am CAD s/p stent --hold ASA pending further surgery --continue Lipitor Aortic stenosis s/p tissue AVR --echo does not rule out aortic stenosis --hold Plavix pending further surgery Renal cell cancer s/p nephrectomy --stable Acute respiratory failure, resolved --extubated 08/14 Hypertension --continue carvedilol F/E/N Fluids: PO intake adequate Electrolytes: replete as indicated Nutrition: low sodium; NPO Saturday midnight DVT prophylaxis: NO HEPARIN, mildly HIT+; SCDs, oob Physical therapy Dispo: continues to require inpatient care. DNR/DNI. Visit type - Emergency Visit Emergency Visit: Yes ED Registration Date: 08/06/16 Care time: The patient presented to the Emergency Department on the above date and was hospitalized for further evaluation of their emergent condition. - New Patient This patient is new to me today: No - Critical Care Critical Care patient: No
[2016-08-28] MEDS: ATORVASTATIN CA 20 MG TABLET (FP) PO SCH (21:42)
[2016-08-29 08:08] LABS: EOSINOPHIL 8.9 % (0-4.5); MCH 29.8 pg (25.7-33.7); MCHC 33.4 g/dl (32.0-35.9); MEAN CELL VOLUME 89.1 fl (80-96); MEAN PLT VOLUME 10.3 fl (7.5-11.1); NEUTROPHILS 56.9 % (42.8-82.8); PLATELET COUNT 94 K/MM3 (134-434); RDW 16.7 % (11.9-15.9); WHITE BLOOD COUNT 5.2 K/mm3 (4.0-10.0)
[2016-08-29 08:30] LABS: INR 1.14 (0.82-1.09); PROTHROMBIN TIME (PATIENT) 12.6 SEC (9.98-11.88)
[2016-08-29 08:44] LABS: CALCIUM 8.5 mg/dL (8.5-10.1); COCKROFT - GAULT 28.79; CREATININE 2.4 mg/dL (0.7-1.3); MAGNESIUM 1.8 mg/dL (1.8-2.4); PHOSPHOROUS 3.2 mg/dL (2.5-4.9)
[2016-08-29 08:45] LABS: ALBUMIN 2.2 g/dl (3.4-5.0); BILIRUBIN,DIRECT 0.9 mg/dL (0.0-0.2); BILIRUBIN,TOTAL 1.3 mg/dL (0.2-1.0); TOT PROT 5.1 g/dl (6.4-8.2)
--- NOTE | 2016-08-29 09:19 | PN ---
Progress Note (short form) - Note Progress Note: doing well no fevers no abdominal pain s/p ercp with stent /2 for cholycystectomy tomorrow Vital Signs Period Temp Pulse Resp BP Sys/Hinkle Pulse Ox Last 24 Hr 98 F-99.5 F 56-73 16-20 119-160/56-96 96-96 cor-rrr lungs decreased bs at bases abd soft,nt ext trace edema bilateral CBC, BMP 08/29/16 07:00 08/29/16 07:00 Microbiology 08/10/16 19:20 Blood - Peripheral Venous Blood Culture - Final NO GROWTH AFTER 5 DAYS INCUBATION 08/10/16 18:50 Blood - Peripheral Venous Blood Culture - Final NO GROWTH AFTER 5 DAYS INCUBATION 08/06/16 18:30 Abdomen Gram Stain - Final 08/06/16 18:30 Abdomen Wound Culture - Final Staphylococcus Coagulase Neg Diphtheroid/Corynebacterium Streptococcus Viridans 08/07/16 10:42 Blood - Peripheral Venous Blood Culture - Final Escherichia Coli 08/07/16 10:40 Blood - Peripheral Venous Blood Culture - Final Escherichia Coli Current Medications Albuterol/Ipratropium (Duoneb -) 1 amp NEB Q6H PRN PRN Reason: SHORTNESS OF BREATH Last Admin: 08/27/16 11:45 Dose: 1 amp Atorvastatin Calcium (Lipitor -) 20 mg PO HS [facility] Last Admin: 08/28/16 21:42 Dose: 20 mg Carvedilol (Coreg -) 6.25 mg PO BID [facility] Last Admin: 08/28/16 21:42 Dose: 6.25 mg Ursodiol (Actigal -) 300 mg PO BID [facility] Last Admin: 08/28/16 21:42 Dose: 300 mg imp/reccd s/p sepsis with ecoli bacteremia-resolved biliary sepsis/resp failure/dilcia (one kidney)- resolved s/p cbd stent hx TAVR +troponins CKD would suggest rocephin/flagyl or ertapenem for preop antibiotics he has quinolone resistance
--- NOTE | 2016-08-29 09:46 | SPA.PREOP ---
- PRE-OP NOTE Dx: Acute cholecystits / choledocholithiasis (s/p ERCP with stone extraction and stenting) / cholangitis Planned Procedure: Laparoscopic cholecystectomy possible open Surgeon: Consent: To be obtained by surgeon after risks, benefits and alternatives explained to patient. Last Vital Signs Temp Pulse Resp BP Pulse Ox 99 F 63 20 150/63 96 08/29/16 08:40 08/29/16 08:40 08/29/16 08:40 08/29/16 08:40 08/28/16 21:00 CBC, BMP 08/29/16 07:00 08/29/16 07:00 Blood Type Blood Type A POSITIVE 08/23/16 07:00 INR, PTT INR 1.14 (0.82-1.09) 08/29/16 07:00 Fibrinogen 463.0 mg/dL (238-498) D 08/13/16 05:35 - ASSESSMENT/PLAN 1. Make NPO after midnight except po meds 2. GI/DVT PPX 3. Medical optimization / clearance 4. Patient as he has quinolone resistance therfore, she will need the following pre-op antibiotic per ID: - Rocephin/flagyl or - Ertapenem Visit type - Case Type Case Type: ED Admission - New patient This patient is new to me today: Yes Date on this admission: 08/29/16
--- NOTE | 2016-08-29 10:00 | PN ---
Progress Note (short form) - Note Progress Note: No acute events No pain On diet Vital Signs Period Temp Pulse Resp BP Sys/Hinkle Pulse Ox Last 24 Hr 98 F-99.5 F 56-73 16-20 119-160/56-96 96-96 Abd soft, NT CBC,CMP WBC 5.2 K/mm3 (4.0-10.0) 08/29/16 07:00 RBC 3.33 M/mm3 (4.00-5.60) L 08/29/16 07:00 Hgb 9.9 GM/dL (11.7-16.9) L 08/29/16 07:00 Hct 29.7 % (35.4-49) L 08/29/16 07:00 MCV 89.1 fl (80-96) 08/29/16 07:00 MCHC 33.4 g/dl (32.0-35.9) 08/29/16 07:00 RDW 16.7 % (11.9-15.9) H 08/29/16 07:00 Plt Count 94 K/MM3 (134-434) L 08/29/16 07:00 MPV 10.3 fl (7.5-11.1) 08/29/16 07:00 Neutrophils % 56.9 % (42.8-82.8) 08/29/16 07:00 Lymphocytes % 21.8 % (8-40) 08/29/16 07:00 Monocytes % 10.4 % (3.8-10.2) H 08/29/16 07:00 Eosinophils % 8.9 % (0-4.5) H 08/29/16 07:00 Basophils % 2.0 % (0-2.0) 08/29/16 07:00 Band Neutrophils 11.0 % (0-10) H D 08/08/16 05:15 Metamyelocytes 5 % (0-2) H D 08/07/16 20:30 Myelocytes 9 % (0-2) H D 08/07/16 20:30 Differential Comment Manual diff done 08/23/16 06:30 Dohle Bodies 1+ 08/08/16 05:15 Platelet Estimate Decreased (NORMAL) 08/23/16 06:30 Platelet Comment No clumping noted 08/08/16 05:15 Polychromasia Few 08/08/16 05:15 Hypochromic-Microcytic Few 08/08/16 05:15 Sodium 143 mmol/L (136-145) 08/29/16 07:00 Potassium 3.8 mmol/L (3.5-5.1) 08/29/16 07:00 Chloride 103 mmol/L (98-107) 08/29/16 07:00 Carbon Dioxide 33 mmol/L (21-32) H 08/29/16 07:00 Anion Gap 7 (8-16) L 08/29/16 07:00 BUN 22 mg/dL (7-18) H 08/29/16 07:00 Creatinine 2.4 mg/dL (0.7-1.3) H 08/29/16 07:00 Creat Clearance w eGFR 25.74 (>60) 08/28/16 06:30 Random Glucose 79 mg/dL (74-106) 08/29/16 07:00 Lactic Acid 1.684 mmol/L (0.4-2.0) 08/08/16 13:20 Calcium 8.5 mg/dL (8.5-10.1) 08/29/16 07:00 Phosphorus 3.2 mg/dL (2.5-4.9) 08/29/16 07:00 Magnesium 1.8 mg/dL (1.8-2.4) 08/29/16 07:00 Total Bilirubin 1.3 mg/dL (0.2-1.0) H 08/29/16 07:00 Direct Bilirubin 0.9 mg/dL (0.0-0.2) H 08/29/16 07:00 AST 18 U/L (15-37) 08/29/16 07:00 ALT 9 U/L (12-78) L 08/29/16 07:00 Alkaline Phosphatase 245 U/L (45-117) H 08/29/16 07:00 Creatine Kinase 60 IU/L (39-308) 08/11/16 00:00 Creatine Kinase Index 11.8 % (0.0-5.0) H* 08/08/16 13:20 CK-MB (CK-2) 18.446 ng/ml (0.5-3.6) H 08/08/16 13:20 CK-MB (CK-2) Rel Index Cancelled 08/08/16 13:20 Troponin I 1.73 ng/ml (0.00-0.05) H* 08/11/16 05:15 C-Reactive Protein 3.1 MG/DL (0.00-0.3) H D 08/25/16 06:30 Total Protein 5.1 g/dl (6.4-8.2) L 08/29/16 07:00 Albumin 2.2 g/dl (3.4-5.0) L 08/29/16 07:00 Total Amylase 55 U/L (25-115) D 08/26/16 06:30 Lipase 170 U/L (73-393) 08/26/16 06:30 Hold ASA Plan for laparoscopic possible open cholecystectomy tomorrow Problem List - Problems (1) Umbilical discharge Code(s): R19.8 - OTH SYMPTOMS AND SIGNS INVOLVING THE DGSTV SYS AND ABDOMEN
[2016-08-29] MEDS: URSODIOL 300 MG CAPSULE PO SCH ×2 (10:18→21:41)
[2016-08-29] MEDS: CARVEDILOL 6.25 MG TABLET (FP) PO SCH ×2 (10:18→21:41)
--- NOTE | 2016-08-29 12:45 | PN ---
Progress Note, Physician History of Present Illness: No abd pain, afebrile, tolerating diet, denies dyspnea, CXR shows resolving effusions without congestion. - Current Medication List Current Medications: Active Medications Albuterol/Ipratropium (Duoneb -) 1 amp NEB Q6H PRN PRN Reason: SHORTNESS OF BREATH Last Admin: 08/27/16 11:45 Dose: 1 amp Atorvastatin Calcium (Lipitor -) 20 mg PO HS [facility] Last Admin: 08/28/16 21:42 Dose: 20 mg Carvedilol (Coreg -) 6.25 mg PO BID [facility] Last Admin: 08/29/16 10:18 Dose: 6.25 mg Ursodiol (Actigal -) 300 mg PO BID [facility] Last Admin: 08/29/16 10:18 Dose: 300 mg - Objective Vital Signs: Vital Signs Temperature 99 F 08/29/16 08:40 Pulse Rate 63 08/29/16 08:40 Respiratory Rate 20 08/29/16 08:40 Blood Pressure 150/63 08/29/16 08:40 O2 Sat by Pulse Oximetry (%) 96 08/28/16 21:00 Constitutional: Yes: No Distress, Calm Neck: Yes: Supple Cardiovascular: Yes: Regular Rate and Rhythm Respiratory: Yes: Regular, Diminished, On Nasal O2 Gastrointestinal: Yes: Soft, Hypoactive Bowel Sounds Edema: No Labs: CBC, BMP 08/29/16 07:00 08/29/16 07:00 INR, PTT INR 1.14 (0.82-1.09) 08/29/16 07:00 Fibrinogen 463.0 mg/dL (238-498) D 08/13/16 05:35 Problem List - Problems (1) CAD (coronary artery disease) Code(s): I25.10 - ATHSCL HEART DISEASE OF [place] CORONARY ARTERY W/O ANG PCTRS Qualifiers: Coronary Disease-Associated Artery/Lesion type: unspecified vessel or lesion type [place] vs. transplanted heart: [place] heart Associated angina: without angina Qualified Code(s): I25.10 - Atherosclerotic heart disease of [place] coronary artery without angina pectoris (2) CKD (chronic kidney disease) Code(s): N18.9 - CHRONIC KIDNEY DISEASE, UNSPECIFIED (3) Calculus of common duct with obstruction Code(s): K80.51 - CALCULUS OF BILE DUCT W/O CHOLANGITIS OR CHOLECYST W OBST (4) History of percutaneous coronary intervention Code(s): Z98.890 - OTHER SPECIFIED POSTPROCEDURAL STATES (5) S/P ERCP Code(s): Z98.890 - OTHER SPECIFIED POSTPROCEDURAL STATES (6) Thrombocytopenia Code(s): D69.6 - THROMBOCYTOPENIA, UNSPECIFIED (7) Left bundle branch block Code(s): I44.7 - LEFT BUNDLE-BRANCH BLOCK, UNSPECIFIED (8) Demand ischemia Code(s): I24.8 - OTHER FORMS OF ACUTE ISCHEMIC HEART DISEASE (9) Anemia Code(s): D64.9 - ANEMIA, UNSPECIFIED Qualifiers: Anemia type: unspecified type Qualified Code(s): D64.9 - Anemia, unspecified (10) Pre-operative cardiovascular examination Code(s): Z01.810 - ENCOUNTER FOR PREPROCEDURAL CARDIOVASCULAR EXAMINATION Assessment/Plan 1. Pre-operative cardiovascular evaluation pre-lap +/- open cholecystectomy 2. s/p hypoxemic respiratory failure and biliary septic shock (E. coli), acute cholangitis post ERCP, balloon sphincteroplasty and stent placement - post leukocytosis and lactic acidosis 3. Post TAVR for severe 4. CAD, S/P PCI/stent with demand ischemic injury 5. Severe biventricular failure with pleural effusions 6. Hypertension 7. Renal CA S/P right nephrectomy 8. CKD - recovered off HD 9. 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 Anemia of chronic disease PLAN: 1. There is no absolute contraindication in proceeding with cholecystectomy in view of absence of ischemic symptoms, decompensated congestive heart failure or malignant arrhythmias although with understanding increased cardiovascular risk. Post operative ECG and cardiac enzyme recommended 2. Diuretic as needed and monitor renal function and electrolytes 3. Empiric Pre-op abx course per ID 4. Continue Carvedilol 6.25 bid and Lipitor 20 qhs, resume ASA once post-op hemostasis has been achieved 5. DVT and GI prophylaxis
--- NOTE | 2016-08-29 12:51 | PN ---
Progress Note, Physician History of Present Illness: Pt seen and examined at bedside. He is awake and alert. He denies shortness of breath. - Current Medication List Current Medications: Active Medications Albuterol/Ipratropium (Duoneb -) 1 amp NEB Q6H PRN PRN Reason: SHORTNESS OF BREATH Last Admin: 08/27/16 11:45 Dose: 1 amp Atorvastatin Calcium (Lipitor -) 20 mg PO HS [facility] Last Admin: 08/28/16 21:42 Dose: 20 mg Carvedilol (Coreg -) 6.25 mg PO BID [facility] Last Admin: 08/29/16 10:18 Dose: 6.25 mg Ursodiol (Actigal -) 300 mg PO BID [facility] Last Admin: 08/29/16 10:18 Dose: 300 mg - Objective Vital Signs: Vital Signs Temperature 99 F 08/29/16 08:40 Pulse Rate 63 08/29/16 08:40 Respiratory Rate 20 08/29/16 08:40 Blood Pressure 150/63 08/29/16 08:40 O2 Sat by Pulse Oximetry (%) 96 08/28/16 21:00 Constitutional: Yes: Calm Eyes: Yes: Conjunctiva Clear HENT: Yes: Atraumatic Cardiovascular: Yes: S1, S2 Respiratory: Yes: On Nasal O2 Gastrointestinal: Yes: Soft Genitourinary: Yes: Stone Present Musculoskeletal: Yes: WNL Edema: Yes Edema: LLE: Trace, RLE: Trace Neurological: Yes: Oriented Psychiatric: Yes: Oriented Labs: CBC, BMP 08/29/16 07:00 08/29/16 07:00 INR, PTT INR 1.14 (0.82-1.09) 08/29/16 07:00 Fibrinogen 463.0 mg/dL (238-498) D 08/13/16 05:35 Problem List - Problems (1) CAD (coronary artery disease) Code(s): I25.10 - ATHSCL HEART DISEASE OF [place] CORONARY ARTERY W/O ANG PCTRS Qualifiers: Coronary Disease-Associated Artery/Lesion type: unspecified vessel or lesion type [place] vs. transplanted heart: [place] heart Associated angina: without angina Qualified Code(s): I25.10 - Atherosclerotic heart disease of [place] coronary artery without angina pectoris (2) Calculus of common duct with obstruction Code(s): K80.51 - CALCULUS OF BILE DUCT W/O CHOLANGITIS OR CHOLECYST W OBST (3) Choledocholithiasis Code(s): K80.50 - CALCULUS OF BILE DUCT W/O CHOLANGITIS OR CHOLECYST W/O OBST (4) Renal cancer Code(s): C64.9 - MALIGNANT NEOPLASM OF UNSP KIDNEY, EXCEPT RENAL PELVIS Qualifiers: Laterality: right Qualified Code(s): C64.1 - Malignant neoplasm of right kidney, except renal pelvis (5) CRISS (acute kidney injury) Code(s): N17.9 - ACUTE KIDNEY FAILURE, UNSPECIFIED (6) CKD (chronic kidney disease) Code(s): N18.9 - CHRONIC KIDNEY DISEASE, UNSPECIFIED Assessment/Plan Current Medications Generic Name Dose Route Start Last Admin Trade Name Freq PRN Reason Stop Dose Admin Albuterol/Ipratropium 1 amp 08/27/16 10:44 08/27/16 11:45 Duoneb - NEB 1 amp Q6H PRN Administration SHORTNESS OF BREATH Atorvastatin Calcium 20 mg 08/16/16 22:00 08/28/16 21:42 Lipitor - PO 20 mg HS SUBHA Administration Carvedilol 6.25 mg 08/17/16 12:21 08/29/16 10:18 Coreg - PO 6.25 mg BID SUBHA Administration Ursodiol 300 mg 08/15/16 22:00 08/29/16 10:18 Actigal - PO 300 mg BID SUBHA Administration Impression 1. CKD stage 3 2. CRISS which required several HD sessions 3. choledocholithiasis 4. CAD 5. hx of Renal Cell Cancer s/p nephroectomy 6. aortic stenosis 7. sepsis 8. acute respiratory failure requiring intubation 9. NSTEMI 10. bacteremia Plan - renal function is stabilizing - repeat labs in am - pt going to OR tomorrow - will keep stone in for now as he is going to the OR - monitor urine output - PT/rehab - cardio input appreciated Dr Medina
--- NOTE | 2016-08-29 15:24 | PN ---
Physical Exam: SUBJECTIVE: Patient seen and examined at bedside. OBJECTIVE: Vital Signs Period Temp Pulse Resp BP Sys/Hinkle Pulse Ox Last 24 Hr 97.9 F-99.5 F 61-73 16-20 119-160/56-96 96-96 GENERAL: The patient is awake, alert, and fully oriented, in no acute distress. HEAD: Normal with no signs of trauma. EYES: PERRL, extraocular movements intact, sclera anicteric, conjunctiva clear. No ptosis. LUNGS: Breath sounds equal, clear to auscultation bilaterally, no wheezes, no crackles, no accessory muscle use. HEART: Regular rate and rhythm, S1, S2 without murmur, rub or gallop. ABDOMEN: Soft, nontender, nondistended, normoactive bowel sounds, no guarding, no rebound, no hepatosplenomegaly, no masses. EXTREMITIES: 2+ pulses, warm, well-perfused, bilateral edema improved, 1-2+ bilaterally NEUROLOGICAL: Cranial nerves II through XII grossly intact. Normal speech, gait not observed. PSYCH: Normal mood, normal affect. Laboratory Results - last 24 hr 08/29/16 08/29/16 08/29/16 07:00 07:00 07:00 WBC 5.2 RBC 3.33 L Hgb 9.9 L Hct 29.7 L MCV 89.1 MCHC 33.4 RDW 16.7 H Plt Count 94 L MPV 10.3 Neutrophils % 56.9 Lymphocytes % 21.8 Monocytes % 10.4 H Eosinophils % 8.9 H Basophils % 2.0 INR 1.14 Sodium 143 Potassium 3.8 Chloride 103 Carbon Dioxide 33 H Anion Gap 7 L BUN 22 H Creatinine 2.4 H Random Glucose 79 Calcium 8.5 Phosphorus 3.2 Magnesium 1.8 Total Bilirubin Direct Bilirubin AST ALT Alkaline Phosphatase Total Protein Albumin 08/29/16 07:00 WBC RBC Hgb Hct MCV MCHC RDW Plt Count MPV Neutrophils % Lymphocytes % Monocytes % Eosinophils % Basophils % INR Sodium Potassium Chloride Carbon Dioxide Anion Gap BUN Creatinine Random Glucose Calcium Phosphorus Magnesium Total Bilirubin 1.3 H Direct Bilirubin 0.9 H AST 18 ALT 9 L Alkaline Phosphatase 245 H Total Protein 5.1 L Albumin 2.2 L Active Medications Generic Name Dose Route Start Last Admin Trade Name Freq PRN Reason Stop Dose Admin Albuterol/Ipratropium 1 amp 08/27/16 10:44 08/27/16 11:45 Duoneb - NEB 1 amp Q6H PRN Administration SHORTNESS OF BREATH Atorvastatin Calcium 20 mg 08/16/16 22:00 08/28/16 21:42 Lipitor - PO 20 mg HS SUBHA Administration Carvedilol 6.25 mg 08/17/16 12:21 08/29/16 10:18 Coreg - PO 6.25 mg BID SUBHA Administration Ursodiol 300 mg 08/15/16 22:00 08/29/16 10:18 Actigal - PO 300 mg BID [facility] Administration ASSESSMENT/PLAN 85 year-old male with a significant PMH of HTN, CAD s/p stent placement, aortic stenosis s/p TAVR, ureteral strictures s/p dilatation, and renal cell cancer s/ p right nephrectomy. Admitted for septic shock secondary to acute choledocholithiasis and E. coli bacteremia. Septic shock secondary to acute choledocholilithiasis and cholangitis E.coli bacteremia --afebrile, WBC wnl --completed 10-day course of antibiotics --s/p partial stone extraction and biliary stent placement 08/07 --s/p ERCP and stone extraction 08/24; started on levofloxacin post-procedure; request ID re-consult --cholecystectomy scheduled for 08/30, cardiac screening done; per ID should get rocephin/flagyl or ertapenem pre-operatively, surgery aware --continue ursodial Acute on chronic kidney injury --peak Cr 7.2, 2.4 today (baseline 1.6) --off dialysis, shiley removed 08/18 --maintain stone Thrombocytopenia --likely due to sepsis, +HIT antibody --last transfused platelets 08/14 --shikha 38k on 08/10, now 94k Severe biventricular heart failure --08/08 Echo: LV severely reduced, EF 23% significantly reduced since 11/2014 ; septal akinesis, apical akinesis, anterolateeral wall severe hypokinesis, anterior wall akinesis, moderate global hypokinesis; RV moderate to severely reduced; BLAE; moderate MR, mild TR; no AI; cannot be ruled out; trace PI; pleural effusion --08/29 CXR: no vascular congestion, resolving pleural effusions --Lasix PRN CAD s/p stent --hold ASA for surgery --continue Lipitor Aortic stenosis s/p tissue AVR --echo does not rule out aortic stenosis --hold Plavix pending surgery Renal cell cancer s/p nephrectomy --stable Acute respiratory failure, resolved --extubated 08/14 Hypertension --continue carvedilol F/E/N Fluids: PO intake adequate Electrolytes: replete as indicated Nutrition: low sodium; NPO Saturday midnight DVT prophylaxis: NO HEPARIN, mildly HIT+; SCDs, oob Physical therapy Dispo: Cholecystectomy tomorrow. Continues to require inpatient care. DNR/DNI. Visit type - Emergency Visit Emergency Visit: Yes ED Registration Date: 08/06/16 Care time: The patient presented to the Emergency Department on the above date and was hospitalized for further evaluation of their emergent condition. - New Patient This patient is new to me today: No - Critical Care Critical Care patient: No
[2016-08-29] MEDS: ATORVASTATIN CA 20 MG TABLET (FP) PO SCH (21:41)
[2016-08-30 07:54] LABS: COCKROFT - GAULT 27.75; CREATININE 2.3 mg/dL (0.7-1.3)
[2016-08-30] MEDS: URSODIOL 300 MG CAPSULE PO SCH (10:35)
[2016-08-30] MEDS: CARVEDILOL 6.25 MG TABLET (FP) PO SCH ×2 (10:39→21:48)
--- NOTE | 2016-08-30 10:48 | PN ---
Progress Note (short form) - Note Progress Note: PULMONARY Denies shortness of breath, cough or chest pain. Last Vital Signs Temp Pulse Resp BP Pulse Ox 99.8 F H 83 20 143/61 91 L 08/30/16 06:00 08/30/16 10:13 08/30/16 06:00 08/30/16 06:00 08/30/16 10:13 Gen: NAD at rest Heart: RRR Lung: decreased breath sounds at the bases Abd: soft, nontender Ext: less edema CBC, BMP 08/29/16 07:00 08/30/16 06:45 Active Medications Albuterol/Ipratropium (Duoneb -) 1 amp NEB Q6H PRN PRN Reason: SHORTNESS OF BREATH Last Admin: 08/27/16 11:45 Dose: 1 amp Atorvastatin Calcium (Lipitor -) 20 mg PO HS [facility] Last Admin: 08/29/16 21:41 Dose: 20 mg Carvedilol (Coreg -) 6.25 mg PO BID [facility] Last Admin: 08/30/16 10:39 Dose: 6.25 mg Ursodiol (Actigal -) 300 mg PO BID [facility] Last Admin: 08/30/16 10:35 Dose: Not Given A/P Acute Cholangitis Gram Negative Bacteremia s/p ERCP/sphincteroplasty/stent placement s/p Acute Hypoxic Respiratory Failure s/p Septic Shock Acute on Chronic Renal Failure improving CAD +Troponins likely [place] Ischemia s/p TAVR for severe Aortic Stenosis Thrombocytopenia - lasix as needed - completed antibiotics - monitor urine output, creatinine - DVT prophylaxis - can proceed with cholecystectomy from pulmonary standpoint
--- NOTE | 2016-08-30 11:32 | PN ---
Progress Note, Physician History of Present Illness: Plan for lap cholecystectomy today. - Current Medication List Current Medications: Active Medications Albuterol/Ipratropium (Duoneb -) 1 amp NEB Q6H PRN PRN Reason: SHORTNESS OF BREATH Last Admin: 08/27/16 11:45 Dose: 1 amp Atorvastatin Calcium (Lipitor -) 20 mg PO HS [facility] Last Admin: 08/29/16 21:41 Dose: 20 mg Carvedilol (Coreg -) 6.25 mg PO BID [facility] Last Admin: 08/30/16 10:39 Dose: 6.25 mg Ursodiol (Actigal -) 300 mg PO BID [facility] Last Admin: 08/30/16 10:35 Dose: Not Given - Objective Vital Signs: Vital Signs Temperature 99.8 F H 08/30/16 06:00 Pulse Rate 83 08/30/16 10:13 Respiratory Rate 20 08/30/16 09:00 Blood Pressure 143/61 08/30/16 06:00 O2 Sat by Pulse Oximetry (%) 91 L 08/30/16 10:13 Constitutional: Yes: No Distress, Calm Neck: Yes: Supple Cardiovascular: Yes: Regular Rate and Rhythm Respiratory: Yes: Regular, Diminished Gastrointestinal: Yes: Soft, Hypoactive Bowel Sounds Edema: No Labs: CBC, BMP 08/29/16 07:00 08/30/16 06:45 INR, PTT INR 1.14 (0.82-1.09) 08/29/16 07:00 Fibrinogen 463.0 mg/dL (238-498) D 08/13/16 05:35 Problem List - Problems (1) CAD (coronary artery disease) Code(s): I25.10 - ATHSCL HEART DISEASE OF [place] CORONARY ARTERY W/O ANG PCTRS Qualifiers: Coronary Disease-Associated Artery/Lesion type: unspecified vessel or lesion type [place] vs. transplanted heart: [place] heart Associated angina: without angina Qualified Code(s): I25.10 - Atherosclerotic heart disease of [place] coronary artery without angina pectoris (2) CKD (chronic kidney disease) Code(s): N18.9 - CHRONIC KIDNEY DISEASE, UNSPECIFIED (3) Calculus of common duct with obstruction Code(s): K80.51 - CALCULUS OF BILE DUCT W/O CHOLANGITIS OR CHOLECYST W OBST (4) History of percutaneous coronary intervention Code(s): Z98.890 - OTHER SPECIFIED POSTPROCEDURAL STATES (5) S/P ERCP Code(s): Z98.890 - OTHER SPECIFIED POSTPROCEDURAL STATES (6) Thrombocytopenia Code(s): D69.6 - THROMBOCYTOPENIA, UNSPECIFIED (7) Left bundle branch block Code(s): I44.7 - LEFT BUNDLE-BRANCH BLOCK, UNSPECIFIED (8) Demand ischemia Code(s): I24.8 - OTHER FORMS OF ACUTE ISCHEMIC HEART DISEASE (9) Anemia Code(s): D64.9 - ANEMIA, UNSPECIFIED Qualifiers: Anemia type: unspecified type Qualified Code(s): D64.9 - Anemia, unspecified (10) Pre-operative cardiovascular examination Code(s): Z01.810 - ENCOUNTER FOR PREPROCEDURAL CARDIOVASCULAR EXAMINATION Assessment/Plan 1. POD#0 lap +/- open cholecystectomy 2. s/p hypoxemic respiratory failure and biliary septic shock (E. coli), acute cholangitis post ERCP, balloon sphincteroplasty and stent placement - post leukocytosis and lactic acidosis 3. Post TAVR for severe 4. CAD, S/P PCI/stent with demand ischemic injury 5. Severe biventricular failure with pleural effusions 6. Hypertension 7. Renal CA S/P right nephrectomy 8. CKD - recovered off HD 9. 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 Anemia of chronic disease PLAN: 1. F/u post operative ECG and cardiac enzyme recommended 2. Diuretic as needed and monitor renal function and electrolytes, replete K 3. Empiric Pre-op abx course per ID 4. Continue Carvedilol 6.25 bid and Lipitor 20 qhs, resume ASA once post-op hemostasis has been achieved 5. DVT and GI prophylaxis
--- NOTE | 2016-08-30 11:57 | PN ---
Physical Exam: SUBJECTIVE: Patient seen and examined at bedside. Scheduled for cholecystectomy today. OBJECTIVE: Vital Signs Period Temp Pulse Resp BP Sys/Hinkle Pulse Ox Last 24 Hr 97.9 F-99.8 F 63-83 16-20 135-150/58-66 91-96 GENERAL: The patient is awake, alert, and fully oriented, in no acute distress. HEAD: Normal with no signs of trauma. EYES: PERRL, extraocular movements intact, sclera anicteric, conjunctiva clear. No ptosis. LUNGS: Breath sounds equal, clear to auscultation bilaterally, no wheezes, no crackles, no accessory muscle use. HEART: Regular rate and rhythm, S1, S2 without murmur, rub or gallop. ABDOMEN: Soft, nontender, nondistended, normoactive bowel sounds, no guarding, no rebound, no hepatosplenomegaly, no masses. EXTREMITIES: 2+ pulses, warm, well-perfused, bilateral edema improved, 1-2+ bilaterally NEUROLOGICAL: Cranial nerves II through XII grossly intact. Normal speech, gait not observed. PSYCH: Normal mood, normal affect. Laboratory Results - last 24 hr 08/30/16 06:45 Sodium 142 Potassium 3.4 L Chloride 103 Carbon Dioxide 30 Anion Gap 9 BUN 19 H Creatinine 2.3 H Random Glucose 84 Calcium 8.0 L Active Medications Generic Name Dose Route Start Last Admin Trade Name Freq PRN Reason Stop Dose Admin Albuterol/Ipratropium 1 amp 08/27/16 10:44 08/27/16 11:45 Duoneb - NEB 1 amp Q6H PRN Administration SHORTNESS OF BREATH Atorvastatin Calcium 20 mg 08/16/16 22:00 08/29/16 21:41 Lipitor - PO 20 mg HS [facility] Administration Carvedilol 6.25 mg 08/17/16 12:21 08/30/16 10:39 Coreg - PO 6.25 mg BID [facility] Administration Ursodiol 300 mg 08/15/16 22:00 08/30/16 10:35 Actigal - PO Not Given BID [facility] ASSESSMENT/PLAN: 85 year-old male with a significant PMH of HTN, CAD s/p stent placement, aortic stenosis s/p TAVR, ureteral strictures s/p dilatation, and renal cell cancer s/ p right nephrectomy. Admitted for septic shock secondary to acute choledocholithiasis and E. coli bacteremia. Septic shock secondary to acute choledocholilithiasis and cholangitis E.coli bacteremia --afebrile, WBC wnl --completed 10-day course of antibiotics --s/p partial stone extraction and biliary stent placement 08/07 --s/p ERCP and stone extraction 08/24; started on levofloxacin post-procedure; request ID re-consult --cholecystectomy scheduled for today; per ID should get rocephin/flagyl or ertapenem pre-operatively, surgery aware --continue ursodial Acute on chronic kidney injury --peak Cr 7.2, 2.4 today (baseline 1.6) --off dialysis, shiley removed 08/18 --maintain stone Thrombocytopenia --likely due to sepsis, +HIT antibody --last transfused platelets 08/14 --shikha 38k on 08/10, now 94k Severe biventricular heart failure --08/08 Echo: LV severely reduced, EF 23% significantly reduced since 11/2014 ; septal akinesis, apical akinesis, anterolateeral wall severe hypokinesis, anterior wall akinesis, moderate global hypokinesis; RV moderate to severely reduced; BLAE; moderate MR, mild TR; no AI; cannot be ruled out; trace PI; pleural effusion --08/29 CXR: no vascular congestion, resolving pleural effusions --Lasix PRN CAD s/p stent --hold ASA for surgery --continue Lipitor Aortic stenosis s/p tissue AVR --echo does not rule out aortic stenosis --hold Plavix pending surgery Renal cell cancer s/p nephrectomy --stable Acute respiratory failure, resolved --extubated 08/14 Hypertension --continue carvedilol F/E/N Fluids: PO intake adequate Electrolytes: replete as indicated Nutrition: low sodium; NPO Saturday midnight DVT prophylaxis: NO HEPARIN, 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 Continues to require inpatient care. DNR/DNI. Visit type - Emergency Visit Emergency Visit: Yes ED Registration Date: 08/06/16 Care time: The patient presented to the Emergency Department on the above date and was hospitalized for further evaluation of their emergent condition. - New Patient This patient is new to me today: No - Critical Care Critical Care patient: No
[2016-08-30] MEDS ORDERED: BUPIVACAINE HCL/PF 0.5% (5MG/ML) 10 ML VIAL ONE (12:19)
[2016-08-30] MEDS ORDERED: ETOMIDATE 20 MG/10 ML AMPUL IVPUSH ONE (12:38)
[2016-08-30] MEDS ORDERED: ROCURONIUM BROMIDE 50 MG/5 ML VIAL ONE (12:38)
[2016-08-30] MEDS ORDERED: CLINDAMYCIN PHOSPHATE 600 MG/4 ML VIAL IVPB ONE (12:43)
[2016-08-30] MEDS ORDERED: CLINDAMYCIN PHOSPHATE 600 MG/4 ML VIAL ONE (13:04)
[2016-08-30] MEDS ORDERED: PHENYLEPHRINE HCL 10 MG/1 ML SINGLE DOSE VIAL ONE (13:09)
[2016-08-30] MEDS ORDERED: GLYCOPYRROLATE 0.2 MG/1 ML VIAL ONE (13:47)
[2016-08-30] MEDS ORDERED: NEOSTIGMINE METHYLSULFATE 0.5 MG/ML - 10 ML MDV ONE (13:47)
[2016-08-30] MEDS ORDERED: BUPIVACAINE HCL/PF 0.5% (5MG/ML) 10 ML VIAL IJ ONE ×2 (13:56)
--- NOTE | 2016-08-30 14:02 | OP ---
Operative Note - Note: Operative Date: 08/30/16 Pre-Operative Diagnosis: Cholangitis s/p ercp with stone extraction. Umbilical drainage/collection Operation: Laparoscopic cholecystectomy, Incision and drainage of umbilicus Post-Operative Diagnosis: Same as Pre-op Surgeon: Santosh Weems Executive Legal Secretary: Arthur Vargas Anesthesia: General Specimens Removed: Gallbladder Estimated Blood Loss (mls): 5 Operative Report Dictated: Yes
[2016-08-30] MEDS ORDERED: ONDANSETRON 4 MG/2 ML VIAL IVPB PRN (14:05)
[2016-08-30] MEDS ORDERED: ACETAMINOPHEN 325 MG TABLET (FP) PO PRN ×2 (14:05→17:16)
[2016-08-30] MEDS ORDERED: ALBUTEROL SO4 2.5/IPRATROPIUM 0.5 INH SOL 3 ML VIAL.NEB. NEB PRN (15:08)
[2016-08-30] MEDS ORDERED: ACETAMINOPHEN 650 MG SUPP.RECT PR ONE (17:17)
[2016-08-30] MEDS ORDERED: SODIUM CHLORIDE 1,000 ML IV SCH ×2 (17:45→20:02)
[2016-08-30 18:10] LABS: BASOPHIL 1.1 % (0-2.0); EOSINOPHIL 4.1 % (0-4.5); MCH 28.9 pg (25.7-33.7); MCHC 32.1 g/dl (32.0-35.9); MEAN CELL VOLUME 89.9 fl (80-96); MEAN PLT VOLUME 10.7 fl (7.5-11.1); NEUTROPHILS 79.6 % (42.8-82.8); PLATELET COUNT 117 K/MM3 (134-434); RDW 16.9 % (11.9-15.9); WHITE BLOOD COUNT 5.3 K/mm3 (4.0-10.0)
[2016-08-30 18:57] LABS: ALBUMIN 2.3 g/dl (3.4-5.0); BILIRUBIN,TOTAL 1.4 mg/dL (0.2-1.0); CALCIUM 7.9 mg/dL (8.5-10.1); COCKROFT - GAULT 27.75; CREATININE 2.3 mg/dL (0.7-1.3); TOT PROT 5.4 g/dl (6.4-8.2)
--- NOTE | 2016-08-30 20:02 | PN ---
Progress Note, Physician History of Present Illness: Pt seen and examined at bedside. He was seen by me earlier today in the recovery room. - Current Medication List Current Medications: Active Medications Acetaminophen (Tylenol -) 650 mg PO Q6H PRN PRN Reason: FEVER OR PAIN Last Admin: 08/30/16 17:29 Dose: 650 mg Acetaminophen (Tylenol -) 650 mg PO Q6H PRN PRN Reason: FEVER OR PAIN Albuterol/Ipratropium (Duoneb -) 1 amp NEB Q6H PRN PRN Reason: SHORTNESS OF BREATH Atorvastatin Calcium (Lipitor -) 20 mg PO HS [facility] Carvedilol (Coreg -) 6.25 mg PO BID [facility] Fentanyl (Sublimaze Injection -) 25 mcg IVPUSH [id number] PRN PRN Reason: PAIN Stop: 09/02/16 14:28 Heparin Sodium (Porcine) (Heparin -) 5,000 unit SQ BID [facility] Hydromorphone HCl (Dilaudid Injection -) 1 mg IVPB Q6H PRN PRN Reason: PAIN Sodium Chloride (Normal Saline -) 1,000 mls @ 75 mls/hr IV ASDIR [facility] Last Admin: 08/30/16 18:09 Dose: 75 mls/hr Ondansetron HCl (Zofran Injection) 4 mg IVPB Q4H PRN PRN Reason: NAUSEA AND/OR VOMITING - Objective Vital Signs: Vital Signs Temperature 103 F H 08/30/16 16:50 Pulse Rate 82 08/30/16 16:50 Respiratory Rate 20 08/30/16 16:50 Blood Pressure 159/57 08/30/16 16:50 O2 Sat by Pulse Oximetry (%) 98 08/30/16 15:15 Constitutional: Yes: Calm Eyes: Yes: Conjunctiva Clear HENT: Yes: Atraumatic Neck: Yes: Supple Cardiovascular: Yes: S1, S2 Respiratory: Yes: On Venti-Mask Gastrointestinal: Yes: Soft Genitourinary: Yes: Stone Present Musculoskeletal: Yes: Muscle Weakness Edema: Yes Edema: LLE: Trace, RLE: Trace Wound/Incision: Yes: Dressing Dry and Intact Neurological: Yes: Other (drwosy) Labs: CBC, BMP 08/30/16 17:40 08/30/16 17:40 INR, PTT INR 1.14 (0.82-1.09) 08/29/16 07:00 Fibrinogen 463.0 mg/dL (238-498) D 08/13/16 05:35 Problem List - Problems (1) CAD (coronary artery disease) Code(s): I25.10 - ATHSCL HEART DISEASE OF [place] CORONARY ARTERY W/O ANG PCTRS Qualifiers: Coronary Disease-Associated Artery/Lesion type: unspecified vessel or lesion type [place] vs. transplanted heart: [place] heart Associated angina: without angina Qualified Code(s): I25.10 - Atherosclerotic heart disease of [place] coronary artery without angina pectoris (2) Calculus of common duct with obstruction Code(s): K80.51 - CALCULUS OF BILE DUCT W/O CHOLANGITIS OR CHOLECYST W OBST (3) Choledocholithiasis Code(s): K80.50 - CALCULUS OF BILE DUCT W/O CHOLANGITIS OR CHOLECYST W/O OBST (4) Renal cancer Code(s): C64.9 - MALIGNANT NEOPLASM OF UNSP KIDNEY, EXCEPT RENAL PELVIS Qualifiers: Laterality: right Qualified Code(s): C64.1 - Malignant neoplasm of right kidney, except renal pelvis (5) CRISS (acute kidney injury) Code(s): N17.9 - ACUTE KIDNEY FAILURE, UNSPECIFIED (6) CKD (chronic kidney disease) Code(s): N18.9 - CHRONIC KIDNEY DISEASE, UNSPECIFIED Assessment/Plan Current Medications Generic Name Dose Route Start Last Admin Trade Name Freq PRN Reason Stop Dose Admin Acetaminophen 650 mg 08/30/16 14:05 08/30/16 17:29 Tylenol - PO 650 mg Q6H PRN Administration FEVER OR PAIN Acetaminophen 650 mg 08/30/16 17:16 Tylenol - PO Q6H PRN FEVER OR PAIN Albuterol/Ipratropium 1 amp 08/30/16 15:08 Duoneb - NEB Q6H PRN SHORTNESS OF BREATH Atorvastatin Calcium 20 mg 08/30/16 22:00 Lipitor - PO HS [facility] Carvedilol 6.25 mg 08/30/16 22:00 Coreg - PO BID [facility] Fentanyl 25 mcg 08/30/16 14:27 Sublimaze Injection - IVPUSH 09/02/16 14:28 [id number] PRN PAIN Heparin Sodium (Porcine) 5,000 unit 08/30/16 22:00 Heparin - SQ BID [facility] Hydromorphone HCl 1 mg 08/30/16 14:05 Dilaudid Injection - IVPB Q6H PRN PAIN Sodium Chloride 1,000 mls @ 75 mls/hr 08/30/16 17:45 08/30/16 18:09 Normal Saline - IV 75 mls/hr ASDIR SUBHA Administration Ondansetron HCl 4 mg 08/30/16 14:05 Zofran Injection IVPB Q4H PRN NAUSEA AND/OR VOMITING Impression 1. CKD stage 3 2. CRISS which required several HD sessions 3. choledocholithiasis 4. CAD 5. hx of Renal Cell Cancer s/p nephroectomy 6. aortic stenosis 7. sepsis 8. acute respiratory failure requiring intubation 9. NSTEMI 10. bacteremia Plan - pt is s/p cholecystectomy - renal function is stabilizing - reviewed anesthesia record - repeat labs in am - monitor urine output - d/c stone catheter in am - monitor urine output - PT/rehab - cardio input appreciated - stop fluids once he tolerated diet Dr Medina
[2016-08-30] MEDS: ACETAMINOPHEN 1000 MG/100 ML VIAL (NON FORMULARY) IVPB SCH (21:47)
[2016-08-30] MEDS: ATORVASTATIN CA 20 MG TABLET (FP) PO SCH (21:48)
[2016-08-30] MEDS ORDERED: HEPARIN NA (PORCINE) 5,000 UNITS/ML 1ML VIAL SQ SCH (22:00)
[2016-08-31] MEDS: ACETAMINOPHEN 1000 MG/100 ML VIAL (NON FORMULARY) IVPB SCH ×3 (06:49→17:26)
[2016-08-31 07:47] LABS: BASOPHIL 0.6 % (0-2.0); EOSINOPHIL 0.2 % (0-4.5); MCH 29.8 pg (25.7-33.7); MCHC 33.3 g/dl (32.0-35.9); MEAN CELL VOLUME 89.5 fl (80-96); MEAN PLT VOLUME 10.3 fl (7.5-11.1); NEUTROPHILS 80.9 % (42.8-82.8); PLATELET COUNT 68 K/MM3 (134-434); RDW 17.2 % (11.9-15.9); WHITE BLOOD COUNT 6.7 K/mm3 (4.0-10.0)
[2016-08-31 08:10] LABS: ALBUMIN 1.9 g/dl (3.4-5.0); BILIRUBIN,TOTAL 1.2 mg/dL (0.2-1.0); CALCIUM 7.5 mg/dL (8.5-10.1); COCKROFT - GAULT 25.46; CREATININE 2.6 mg/dL (0.7-1.3)
[2016-08-31 08:11] LABS: TOT PROT 4.3 g/dl (6.4-8.2)
--- NOTE | 2016-08-31 08:54 | PN ---
Progress Note (short form) - Note Progress Note: ANESTHESIA pod#1 s/p lAP Cholecystectomy under GA Sleeping,comfortable,VSS,no N/V,pain is under control. LFTs are improving. No complications seen. Renae Shahid MD.
[2016-08-31] MEDS: CARVEDILOL 6.25 MG TABLET (FP) PO SCH ×2 (10:08→22:13)
--- NOTE | 2016-08-31 10:31 | PN ---
Progress Note (short form) - Note Progress Note: POD 1 Laparoscopic cholecystectomy, incision and drainage of umbilical collection Pain controlled On diet and tolerating Vital Signs Period Temp Pulse Resp BP Sys/Hinkle Pulse Ox Last 24 Hr 97.9 F-103 F 56-82 15-80 89-159/41-66 95-98 Abd soft, incisional tenderness, packing in place CBC,CMP WBC 6.7 K/mm3 (4.0-10.0) 08/31/16 06:30 RBC 3.17 M/mm3 (4.00-5.60) L 08/31/16 06:30 Hgb 9.4 GM/dL (11.7-16.9) L D 08/31/16 06:30 Hct 28.3 % (35.4-49) L D 08/31/16 06:30 MCV 89.5 fl (80-96) 08/31/16 06:30 MCHC 33.3 g/dl (32.0-35.9) 08/31/16 06:30 RDW 17.2 % (11.9-15.9) H 08/31/16 06:30 Plt Count 68 K/MM3 (134-434) L D 08/31/16 06:30 MPV 10.3 fl (7.5-11.1) 08/31/16 06:30 Neutrophils % 80.9 % (42.8-82.8) 08/31/16 06:30 Lymphocytes % 11.2 % (8-40) 08/31/16 06:30 Monocytes % 7.1 % (3.8-10.2) 08/31/16 06:30 Eosinophils % 0.2 % (0-4.5) D 08/31/16 06:30 Basophils % 0.6 % (0-2.0) 08/31/16 06:30 Band Neutrophils 11.0 % (0-10) H D 08/08/16 05:15 Metamyelocytes 5 % (0-2) H D 08/07/16 20:30 Myelocytes 9 % (0-2) H D 08/07/16 20:30 Differential Comment Manual diff done 08/23/16 06:30 Dohle Bodies 1+ 08/08/16 05:15 Platelet Estimate Decreased (NORMAL) 08/23/16 06:30 Platelet Comment No clumping noted 08/08/16 05:15 Polychromasia Few 08/08/16 05:15 Hypochromic-Microcytic Few 08/08/16 05:15 Sodium 141 mmol/L (136-145) 08/31/16 06:30 Potassium 3.9 mmol/L (3.5-5.1) 08/31/16 06:30 Chloride 104 mmol/L (98-107) 08/31/16 06:30 Carbon Dioxide 29 mmol/L (21-32) 08/31/16 06:30 Anion Gap 8 (8-16) 08/31/16 06:30 BUN 24 mg/dL (7-18) H 08/31/16 06:30 Creatinine 2.6 mg/dL (0.7-1.3) H 08/31/16 06:30 Creat Clearance w eGFR 23.47 (>60) 08/31/16 06:30 Random Glucose 83 mg/dL (74-106) 08/31/16 06:30 Lactic Acid 1.684 mmol/L (0.4-2.0) 08/08/16 13:20 Calcium 7.5 mg/dL (8.5-10.1) L 08/31/16 06:30 Phosphorus 3.2 mg/dL (2.5-4.9) 08/29/16 07:00 Magnesium 1.8 mg/dL (1.8-2.4) 08/29/16 07:00 Total Bilirubin 1.2 mg/dL (0.2-1.0) H 08/31/16 06:30 Direct Bilirubin 0.9 mg/dL (0.0-0.2) H 08/29/16 07:00 AST 69 U/L (15-37) H 08/31/16 06:30 ALT 24 U/L (12-78) 08/31/16 06:30 Alkaline Phosphatase 188 U/L (45-117) H D 08/31/16 06:30 Creatine Kinase 60 IU/L (39-308) 08/11/16 00:00 Creatine Kinase Index 11.8 % (0.0-5.0) H* 08/08/16 13:20 CK-MB (CK-2) 18.446 ng/ml (0.5-3.6) H 08/08/16 13:20 CK-MB (CK-2) Rel Index Cancelled 08/08/16 13:20 Troponin I 1.73 ng/ml (0.00-0.05) H* 08/11/16 05:15 C-Reactive Protein 3.1 MG/DL (0.00-0.3) H D 08/25/16 06:30 Total Protein 4.3 g/dl (6.4-8.2) L D 08/31/16 06:30 Albumin 1.9 g/dl (3.4-5.0) L 08/31/16 06:30 Total Amylase 55 U/L (25-115) D 08/26/16 06:30 Lipase 170 U/L (73-393) 08/26/16 06:30 OOB Diet Daily wound packing If remains stable can start planning discharge from surgical standpoint Problem List - Problems (1) Umbilical discharge Code(s): R19.8 - OTH SYMPTOMS AND SIGNS INVOLVING THE DGSTV SYS AND ABDOMEN
[2016-08-31] MEDS: HYDROmorphone HCL CARPU-JECT 1 MG/1 ML DISP.SYRIN IVPB PRN (11:51)
--- NOTE | 2016-08-31 11:56 | SPEC ---
DATE OF OPERATION: 08/30/2016 SURGEON: Santosh Weems MD [employer] MANAGER: JOE Jones PROCEDURE: Laparoscopic cholecystectomy and incision and drainage of umbilicus for collection. PREOPERATIVE DIAGNOSIS: Cholangitis with septic shock, resolved status post endoscopic retrograde cholangiopancreatography with sphincterotomy stone extraction and stent, as well as drainage from the umbilicus. POSTOPERATIVE DIAGNOSIS: Cholangitis with septic shock, resolved status post endoscopic retrograde cholangiopancreatography with sphincterotomy stone extraction and stent, as well as drainage from the umbilicus. ESTIMATED BLOOD LOSS: 5 mL. DRAINS: None. ANESTHESIA: GET. REASON FOR PROCEDURE: This is an 85-year-old gentleman who presented to the hospital and was found to have cholangitis and be in septic shock. He went through an extensive course including ICU care, intubation, multiple ERCPs with stents, sphincterotomy and stone extraction. He also required dialysis for acute renal insufficiency. Once the common bile duct stone was extracted, and he had resolved clinically, he had been transferred to the floor and remained stable. He was cleared by Cardiology and was then consented for laparoscopic cholecystectomy, possible open. In addition, he was noted on a prior exam to have drainage from his umbilicus. He had this for some time, and because of this, he was also consented for incision and drainage of an umbilical collection. DESCRIPTION OF PROCEDURE: The patient was placed supine on the operating room table. The patient underwent general endotracheal intubation. The abdomen was prepped and draped in the usual sterile fashion. A timeout was performed. A periumbilical incision was made, and a 5-mm optical trocar was inserted under direct visualization with the laparoscope. Pneumoperitoneum was then established. Subsequently, a 5-mm trocar was placed in the subxiphoid area and two 5-mm trocars were placed in the right upper quadrant. The 5-mm trocar at the periumbilical region was removed and a 10-mm trocar was inserted. The patient was placed in reverse Trendelenburg, right side up position. The gallbladder was noted and was retracted cephalad and laterally. Any overlying omental adhesions were carefully dissected. The peritoneum was dissected using electrocautery. The cystic duct followed by the cystic artery were circumferentially dissected, clipped and transected. The gallbladder was removed off the liver bed using electrocautery. Hemostasis of the liver bed and surrounding area was attained using electrocautery. The gallbladder was placed in an EndoCatch bag. Copious irrigation and suction were performed until clear. The gallbladder was removed from the abdominal cavity. The fascia at the 10-mm trocar site was closed using a 0-Vicryl suture. All incision sites were irrigated and Marcaine was injected. Hemostasis of all incision sites was noted. All incision sites were closed using 4-0 Biosyn. Sterile dressings were applied. In addition, the umbilicus was incised with a 15-blade scalpel. The area was explored and no purulent drainage noted. There was noted to be a small defect within the fascia, which was closed using 0 Vicryl suture. The wound was packed open and dressings were applied. The patient tolerated the procedure well and was transferred to the recovery room in stable condition. Ludwin BUCHANAN/[id number]
--- NOTE | 2016-08-31 12:07 | PN ---
Physical Exam: SUBJECTIVE: Patient seen and examined at bedside. Has abdominal pain at site of incisions. OBJECTIVE: Vital Signs Period Temp Pulse Resp BP Sys/Hinkle Pulse Ox Last 24 Hr 97.9 F-103 F 56-82 15-80 89-159/41-66 95-98 GENERAL: The patient is awake, alert, and fully oriented, in no acute distress. HEAD: Normal with no signs of trauma. EYES: PERRL, extraocular movements intact, sclera anicteric, conjunctiva clear. No ptosis. LUNGS: Breath sounds equal, clear to auscultation bilaterally, no wheezes, no crackles, no accessory muscle use. HEART: Regular rate and rhythm, S1, S2 without murmur, rub or gallop. ABDOMEN: Soft, diffuse tenderness; surgical incision sites x 3 well-approximated , no erythema, no exudate EXTREMITIES: 2+ pulses, warm, well-perfused, bilateral edema improved, 1-2+ bilaterally NEUROLOGICAL: Cranial nerves II through XII grossly intact. Normal speech, gait not observed. PSYCH: Normal mood, normal affect. Laboratory Results - last 24 hr 08/30/16 08/30/16 08/31/16 17:40 17:40 06:30 WBC 5.3 6.7 RBC 3.79 L 3.17 L Hgb 10.9 L D 9.4 L D Hct 34.1 L 28.3 L D MCV 89.9 89.5 MCHC 32.1 33.3 RDW 16.9 H 17.2 H Plt Count 117 L D 68 L D MPV 10.7 10.3 Neutrophils % 79.6 D 80.9 Lymphocytes % 10.9 D 11.2 Monocytes % 4.3 7.1 Eosinophils % 4.1 0.2 D Basophils % 1.1 0.6 Sodium 143 Potassium 3.9 Chloride 104 Carbon Dioxide 31 Anion Gap 8 BUN 21 H Creatinine 2.3 H Creat Clearance w eGFR 27.03 Random Glucose 97 Calcium 7.9 L Total Bilirubin 1.4 H AST 61 H D ALT 20 D Alkaline Phosphatase 240 H Total Protein 5.4 L Albumin 2.3 L 08/31/16 06:30 WBC RBC Hgb Hct MCV MCHC RDW Plt Count MPV Neutrophils % Lymphocytes % Monocytes % Eosinophils % Basophils % Sodium 141 Potassium 3.9 Chloride 104 Carbon Dioxide 29 Anion Gap 8 BUN 24 H Creatinine 2.6 H Creat Clearance w eGFR 23.47 Random Glucose 83 Calcium 7.5 L Total Bilirubin 1.2 H AST 69 H ALT 24 Alkaline Phosphatase 188 H D Total Protein 4.3 L D Albumin 1.9 L Active Medications Generic Name Dose Route Start Last Admin Trade Name Freq PRN Reason Stop Dose Admin Acetaminophen 1,000 mg 08/30/16 21:00 08/31/16 10:08 Ofirmev Injection - IVPB 08/31/16 15:01 1,000 mg Q6H SUBHA Administration Albuterol/Ipratropium 1 amp 08/30/16 15:08 Duoneb - NEB Q6H PRN SHORTNESS OF BREATH Atorvastatin Calcium 20 mg 08/30/16 22:00 08/30/16 21:48 Lipitor - PO 20 mg HS SUBHA Administration Carvedilol 6.25 mg 08/30/16 22:00 08/31/16 10:08 Coreg - PO 6.25 mg BID SUBHA Administration Fentanyl 25 mcg 08/30/16 14:27 Sublimaze Injection - IVPUSH 09/02/16 14:28 [id number] PRN PAIN Hydromorphone HCl 1 mg 08/30/16 14:05 08/31/16 11:51 Dilaudid Injection - IVPB 1 mg Q6H PRN Administration PAIN Sodium Chloride 1,000 mls @ 35 mls/hr 08/30/16 20:02 08/30/16 21:48 Normal Saline - IV 35 mls/hr ASDIR SUBHA Administration Ondansetron HCl 4 mg 08/30/16 14:05 Zofran Injection IVPB Q4H PRN NAUSEA AND/OR VOMITING ASSESSMENT/PLAN 85 year-old male with a significant PMH of HTN, CAD s/p stent placement, aortic stenosis s/p TAVR, ureteral strictures s/p dilatation, and renal cell cancer s/ p right nephrectomy. Admitted for septic shock secondary to acute choledocholithiasis and E. coli bacteremia. 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, +HIT antibody --last transfused platelets 08/14 --shikha 38k on 08/10, now 68k --no signs of bleeding, h/h stable Severe biventricular heart failure --08/08 Echo: LV severely reduced, EF 23% significantly reduced since 11/2014 ; septal akinesis, apical akinesis, anterolateeral wall severe hypokinesis, anterior wall akinesis, moderate global hypokinesis; RV moderate to severely reduced; BLAE; moderate MR, mild TR; no AI; cannot be ruled out; trace PI; pleural effusion --08/29 CXR: no vascular congestion, resolving pleural effusions --hold Lasix due to hyponatremia CAD s/p stent --hold ASA --continue Lipitor Aortic stenosis s/p tissue AVR --echo does not rule out aortic stenosis --hold Plavix Renal cell cancer s/p nephrectomy --stable Acute respiratory failure, resolved --extubated 08/14 Hypertension --continue carvedilol F/E/N Fluids: PO intake adequate Electrolytes: replete as indicated Nutrition: low sodium, fat controlled DVT prophylaxis: NO HEPARIN, mildly HIT+; SCDs, oob Physical therapy Dispo: consider restarting ASA, Plavix tomorrow; will need SNF placement. DNR/ DNI. Visit type - Emergency Visit Emergency Visit: Yes ED Registration Date: 08/06/16 Care time: The patient presented to the Emergency Department on the above date and was hospitalized for further evaluation of their emergent condition. - New Patient This patient is new to me today: No - Critical Care Critical Care patient: No
--- NOTE | 2016-08-31 14:34 | PN ---
Progress Note, Physician History of Present Illness: Pt seen and examined at bedside. He is awake and alert. He tolerated breakfast and lunch today. He has low blood pressure overnight but it is improving. - Current Medication List Current Medications: Active Medications Acetaminophen (Ofirmev Injection -) 1,000 mg IVPB Q6H [facility] Stop: 08/31/16 15:01 Last Admin: 08/31/16 10:08 Dose: 1,000 mg Albuterol/Ipratropium (Duoneb -) 1 amp NEB Q6H PRN PRN Reason: SHORTNESS OF BREATH Atorvastatin Calcium (Lipitor -) 20 mg PO HS [facility] Last Admin: 08/30/16 21:48 Dose: 20 mg Carvedilol (Coreg -) 6.25 mg PO BID [facility] Last Admin: 08/31/16 10:08 Dose: 6.25 mg Fentanyl (Sublimaze Injection -) 25 mcg IVPUSH [id number] PRN PRN Reason: PAIN Stop: 09/02/16 14:28 Hydromorphone HCl (Dilaudid Injection -) 1 mg IVPB Q6H PRN PRN Reason: PAIN Last Admin: 08/31/16 11:51 Dose: 1 mg Sodium Chloride (Normal Saline -) 1,000 mls @ 35 mls/hr IV ASDIR [facility] Last Admin: 08/30/16 21:48 Dose: 35 mls/hr Ondansetron HCl (Zofran Injection) 4 mg IVPB Q4H PRN PRN Reason: NAUSEA AND/OR VOMITING - Objective Vital Signs: Vital Signs Temperature 99.1 F 08/31/16 06:00 Pulse Rate 65 08/31/16 06:00 Respiratory Rate 80 H 08/31/16 06:00 Blood Pressure 105/47 08/31/16 06:00 O2 Sat by Pulse Oximetry (%) 96 08/30/16 22:00 Constitutional: Yes: Calm Eyes: Yes: Conjunctiva Clear HENT: Yes: Atraumatic Neck: Yes: Supple Cardiovascular: Yes: S1, S2 Gastrointestinal: Yes: Normal Bowel Sounds, Soft Genitourinary: Yes: Stone Present Musculoskeletal: Yes: Muscle Weakness Edema: Yes Edema: LLE: Trace, RLE: Trace Neurological: Yes: Oriented Psychiatric: Yes: Oriented Labs: CBC, BMP 08/31/16 06:30 08/31/16 06:30 INR, PTT INR 1.14 (0.82-1.09) 08/29/16 07:00 Fibrinogen 463.0 mg/dL (238-498) D 08/13/16 05:35 Problem List - Problems (1) CAD (coronary artery disease) Code(s): I25.10 - ATHSCL HEART DISEASE OF [place] CORONARY ARTERY W/O ANG PCTRS Qualifiers: Coronary Disease-Associated Artery/Lesion type: unspecified vessel or lesion type [place] vs. transplanted heart: [place] heart Associated angina: without angina Qualified Code(s): I25.10 - Atherosclerotic heart disease of [place] coronary artery without angina pectoris (2) Calculus of common duct with obstruction Code(s): K80.51 - CALCULUS OF BILE DUCT W/O CHOLANGITIS OR CHOLECYST W OBST (3) Choledocholithiasis Code(s): K80.50 - CALCULUS OF BILE DUCT W/O CHOLANGITIS OR CHOLECYST W/O OBST (4) Renal cancer Code(s): C64.9 - MALIGNANT NEOPLASM OF UNSP KIDNEY, EXCEPT RENAL PELVIS Qualifiers: Laterality: right Qualified Code(s): C64.1 - Malignant neoplasm of right kidney, except renal pelvis (5) CRISS (acute kidney injury) Code(s): N17.9 - ACUTE KIDNEY FAILURE, UNSPECIFIED (6) CKD (chronic kidney disease) Code(s): N18.9 - CHRONIC KIDNEY DISEASE, UNSPECIFIED Assessment/Plan Current Medications Generic Name Dose Route Start Last Admin Trade Name Freq PRN Reason Stop Dose Admin Acetaminophen 1,000 mg 08/30/16 21:00 08/31/16 10:08 Ofirmev Injection - IVPB 08/31/16 15:01 1,000 mg Q6H [facility] Administration Albuterol/Ipratropium 1 amp 08/30/16 15:08 Duoneb - NEB Q6H PRN SHORTNESS OF BREATH Atorvastatin Calcium 20 mg 08/30/16 22:00 08/30/16 21:48 Lipitor - PO 20 mg HS [facility] Administration Carvedilol 6.25 mg 08/30/16 22:00 08/31/16 10:08 Coreg - PO 6.25 mg BID [facility] Administration Fentanyl 25 mcg 08/30/16 14:27 Sublimaze Injection - IVPUSH 09/02/16 14:28 [id number] PRN PAIN Hydromorphone HCl 1 mg 08/30/16 14:05 08/31/16 11:51 Dilaudid Injection - IVPB 1 mg Q6H PRN Administration PAIN Sodium Chloride 1,000 mls @ 35 mls/hr 08/30/16 20:02 08/30/16 21:48 Normal Saline - IV 35 mls/hr ASDIR SUBHA Administration Ondansetron HCl 4 mg 08/30/16 14:05 Zofran Injection IVPB Q4H PRN NAUSEA AND/OR VOMITING Impression 1. CKD stage 3 2. CRISS which required several HD sessions 3. choledocholithiasis 4. CAD 5. hx of Renal Cell Cancer s/p nephroectomy 6. aortic stenosis 7. sepsis 8. acute respiratory failure requiring intubation 9. NSTEMI 10. bacteremia Plan - creatinine is a little higher today - repeat labs in am - can d/c stone catheter - cont with gentle fluids - blood pressure is improving - monitor urine output - PT/rehab Dr Medina
[2016-08-31] MEDS ORDERED: SODIUM CHLORIDE 1,000 ML IV SCH (14:35)
--- NOTE | 2016-08-31 16:27 | PN ---
Progress Note, Physician History of Present Illness: Post lap cholecystectomy and umbilical fluid collection drainage. - Current Medication List Current Medications: Active Medications Albuterol/Ipratropium (Duoneb -) 1 amp NEB Q6H PRN PRN Reason: SHORTNESS OF BREATH Atorvastatin Calcium (Lipitor -) 20 mg PO HS [facility] Last Admin: 08/30/16 21:48 Dose: 20 mg Carvedilol (Coreg -) 6.25 mg PO BID [facility] Last Admin: 08/31/16 10:08 Dose: 6.25 mg Fentanyl (Sublimaze Injection -) 25 mcg IVPUSH [id number] PRN PRN Reason: PAIN Stop: 09/02/16 14:28 Hydromorphone HCl (Dilaudid Injection -) 1 mg IVPB Q6H PRN PRN Reason: PAIN Last Admin: 08/31/16 11:51 Dose: 1 mg Sodium Chloride (Normal Saline -) 1,000 mls @ 42 mls/hr IV ASDIR [facility] Stop: 08/31/16 22:00 Ondansetron HCl (Zofran Injection) 4 mg IVPB Q4H PRN PRN Reason: NAUSEA AND/OR VOMITING - Objective Vital Signs: Vital Signs Temperature 98.6 F 08/31/16 15:34 Pulse Rate 64 08/31/16 15:34 Respiratory Rate 80 H 08/31/16 13:00 Blood Pressure 107/48 08/31/16 15:34 O2 Sat by Pulse Oximetry (%) 96 08/30/16 22:00 Constitutional: Yes: No Distress, Calm Neck: Yes: Supple Cardiovascular: Yes: Regular Rate and Rhythm Respiratory: Yes: Regular, Diminished Gastrointestinal: Yes: Normal Bowel Sounds, Soft Edema: No Labs: CBC, BMP 08/31/16 06:30 08/31/16 06:30 INR, PTT INR 1.14 (0.82-1.09) 08/29/16 07:00 Fibrinogen 463.0 mg/dL (238-498) D 08/13/16 05:35 Problem List - Problems (1) CAD (coronary artery disease) Code(s): I25.10 - ATHSCL HEART DISEASE OF [place] CORONARY ARTERY W/O ANG PCTRS Qualifiers: Coronary Disease-Associated Artery/Lesion type: unspecified vessel or lesion type [place] vs. transplanted heart: [place] heart Associated angina: without angina Qualified Code(s): I25.10 - Atherosclerotic heart disease of [place] coronary artery without angina pectoris (2) CKD (chronic kidney disease) Code(s): N18.9 - CHRONIC KIDNEY DISEASE, UNSPECIFIED (3) Calculus of common duct with obstruction Code(s): K80.51 - CALCULUS OF BILE DUCT W/O CHOLANGITIS OR CHOLECYST W OBST (4) History of percutaneous coronary intervention Code(s): Z98.890 - OTHER SPECIFIED POSTPROCEDURAL STATES (5) S/P ERCP Code(s): Z98.890 - OTHER SPECIFIED POSTPROCEDURAL STATES (6) Thrombocytopenia Code(s): D69.6 - THROMBOCYTOPENIA, UNSPECIFIED (7) Left bundle branch block Code(s): I44.7 - LEFT BUNDLE-BRANCH BLOCK, UNSPECIFIED (8) Demand ischemia Code(s): I24.8 - OTHER FORMS OF ACUTE ISCHEMIC HEART DISEASE (9) Anemia Code(s): D64.9 - ANEMIA, UNSPECIFIED Qualifiers: Anemia type: unspecified type Qualified Code(s): D64.9 - Anemia, unspecified Assessment/Plan 1. POD#1 lap cholecystectomy and umbilical fluid collection drainage 2. s/p hypoxemic respiratory failure and biliary septic shock (E. coli), acute cholangitis post ERCP, balloon sphincteroplasty and stent placement - post leukocytosis and lactic acidosis 3. Post TAVR for severe 4. CAD, S/P PCI/stent with demand ischemic injury 5. Severe biventricular failure with pleural effusions 6. Hypertension 7. Renal CA S/P right nephrectomy 8. CKD - recovered off HD 9. 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 Anemia of chronic disease PLAN: 1. Diuretic as needed and monitor renal function and electrolytes 2. Empiric Pre-op abx course per ID 3. Continue Carvedilol 6.25 bid and Lipitor 20 qhs, resume ASA once post-op hemostasis has been achieved 4. DVT and GI prophylaxis
[2016-08-31] MEDS: ATORVASTATIN CA 20 MG TABLET (FP) PO SCH (22:13)
[2016-09-01] MEDS: HYDROmorphone HCL CARPU-JECT 1 MG/1 ML DISP.SYRIN IVPB PRN (01:37)
[2016-09-01 07:51] LABS: CALCIUM 7.4 mg/dL (8.5-10.1); COCKROFT - GAULT 25.46; CREATININE 2.6 mg/dL (0.7-1.3)
[2016-09-01] MEDS: CARVEDILOL 6.25 MG TABLET (FP) PO SCH ×2 (09:41→21:41)
--- NOTE | 2016-09-01 11:30 | PN ---
Progress Note (short form) - Note Progress Note: PULMONARY Some pain post surgery but otherwise doing well. Denies shortness of breath, cough or chest pain. Last Vital Signs Temp Pulse Resp BP Pulse Ox 99.2 F 69 28 H 125/57 97 09/01/16 09:32 09/01/16 10:50 09/01/16 09:32 09/01/16 09:32 09/01/16 10:50 Gen: NAD at rest Heart: RRR Lung: decreased breath sounds at the bases Abd: soft, nontender Ext: less edema CBC, BMP 08/31/16 06:30 09/01/16 06:00 Active Medications Albuterol/Ipratropium (Duoneb -) 1 amp NEB Q6H PRN PRN Reason: SHORTNESS OF BREATH Last Admin: 09/01/16 10:50 Dose: 1 amp Atorvastatin Calcium (Lipitor -) 20 mg PO HS [facility] Last Admin: 08/31/16 22:13 Dose: 20 mg Carvedilol (Coreg -) 6.25 mg PO BID [facility] Last Admin: 09/01/16 09:41 Dose: 6.25 mg Fentanyl (Sublimaze Injection -) 25 mcg IVPUSH [id number] PRN PRN Reason: PAIN Stop: 09/02/16 14:28 Hydromorphone HCl (Dilaudid Injection -) 1 mg IVPB Q6H PRN PRN Reason: PAIN Last Admin: 09/01/16 01:37 Dose: 1 mg Ondansetron HCl (Zofran Injection) 4 mg IVPB Q4H PRN PRN Reason: NAUSEA AND/OR VOMITING A/P Acute Cholangitis Gram Negative Bacteremia s/p ERCP/sphincteroplasty/stent placement s/p Acute Hypoxic Respiratory Failure s/p Laparascopic Cholecystectomy Acute on Chronic Renal Failure improving CAD +Troponins likely Demand Ischemia s/p TAVR for severe Aortic Stenosis Thrombocytopenia - pain control - incentive spirometry - lasix as needed - completed antibiotics - monitor urine output, creatinine - DVT prophylaxis - rehab/PT
[2016-09-01 12:03] LABS: BASOPHIL 0.3 % (0-2.0); EOSINOPHIL 0.1 % (0-4.5); MCH 29.5 pg (25.7-33.7); MCHC 32.8 g/dl (32.0-35.9); MEAN CELL VOLUME 89.9 fl (80-96); MEAN PLT VOLUME 10.7 fl (7.5-11.1); NEUTROPHILS 87.2 % (42.8-82.8); PLATELET COUNT 61 K/MM3 (134-434); RDW 17.5 % (11.9-15.9); WHITE BLOOD COUNT 9.4 K/mm3 (4.0-10.0)
[2016-09-01] MEDS: ACETAMINOPHEN 325 MG TABLET (FP) PO PRN ×2 (12:48→21:44)
--- NOTE | 2016-09-01 16:03 | PN ---
Progress Note, Physician History of Present Illness: Pt seen and examined at bedside. He is awake and appears comfortable. Stone cath was removed this morning, he has not voided yet. - Current Medication List Current Medications: Active Medications Acetaminophen (Tylenol -) 650 mg PO Q6H PRN PRN Reason: FEVER OR PAIN Last Admin: 09/01/16 12:48 Dose: 650 mg Albuterol/Ipratropium (Duoneb -) 1 amp NEB Q6H PRN PRN Reason: SHORTNESS OF BREATH Last Admin: 09/01/16 10:50 Dose: 1 amp Atorvastatin Calcium (Lipitor -) 20 mg PO HS [facility] Last Admin: 08/31/16 22:13 Dose: 20 mg Carvedilol (Coreg -) 6.25 mg PO BID [facility] Last Admin: 09/01/16 09:41 Dose: 6.25 mg Fentanyl (Sublimaze Injection -) 25 mcg IVPUSH [id number] PRN PRN Reason: PAIN Stop: 09/02/16 14:28 Hydromorphone HCl (Dilaudid Injection -) 1 mg IVPB Q6H PRN PRN Reason: PAIN Last Admin: 09/01/16 01:37 Dose: 1 mg Ondansetron HCl (Zofran Injection) 4 mg IVPB Q4H PRN PRN Reason: NAUSEA AND/OR VOMITING - Objective Vital Signs: Vital Signs Temperature 98.1 F 09/01/16 15:44 Pulse Rate 74 09/01/16 15:44 Respiratory Rate 18 09/01/16 15:44 Blood Pressure 123/58 09/01/16 15:44 O2 Sat by Pulse Oximetry (%) 97 09/01/16 10:50 Constitutional: Yes: Calm Eyes: Yes: Conjunctiva Clear HENT: Yes: Atraumatic Neck: Yes: Supple Cardiovascular: Yes: S1, S2 Respiratory: Yes: Diminished, On Nasal O2 Gastrointestinal: Yes: Soft Genitourinary: Yes: Other (on voiding trial) Musculoskeletal: Yes: Muscle Weakness Edema: Yes Edema: LLE: Trace, RLE: Trace Neurological: Yes: Oriented Psychiatric: Yes: Oriented Labs: CBC, BMP 09/01/16 12:00 09/01/16 06:00 INR, PTT INR 1.14 (0.82-1.09) 08/29/16 07:00 Fibrinogen 463.0 mg/dL (238-498) D 08/13/16 05:35 Problem List - Problems (1) CAD (coronary artery disease) Code(s): I25.10 - ATHSCL HEART DISEASE OF [place] CORONARY ARTERY W/O ANG PCTRS Qualifiers: Coronary Disease-Associated Artery/Lesion type: unspecified vessel or lesion type [place] vs. transplanted heart: [place] heart Associated angina: without angina Qualified Code(s): I25.10 - Atherosclerotic heart disease of [place] coronary artery without angina pectoris (2) Calculus of common duct with obstruction Code(s): K80.51 - CALCULUS OF BILE DUCT W/O CHOLANGITIS OR CHOLECYST W OBST (3) Choledocholithiasis Code(s): K80.50 - CALCULUS OF BILE DUCT W/O CHOLANGITIS OR CHOLECYST W/O OBST (4) Renal cancer Code(s): C64.9 - MALIGNANT NEOPLASM OF UNSP KIDNEY, EXCEPT RENAL PELVIS Qualifiers: Laterality: right Qualified Code(s): C64.1 - Malignant neoplasm of right kidney, except renal pelvis (5) CRISS (acute kidney injury) Code(s): N17.9 - ACUTE KIDNEY FAILURE, UNSPECIFIED (6) CKD (chronic kidney disease) Code(s): N18.9 - CHRONIC KIDNEY DISEASE, UNSPECIFIED Assessment/Plan Current Medications Generic Name Dose Route Start Last Admin Trade Name Freq PRN Reason Stop Dose Admin Acetaminophen 650 mg 09/01/16 12:13 09/01/16 12:48 Tylenol - PO 650 mg Q6H PRN Administration FEVER OR PAIN Albuterol/Ipratropium 1 amp 08/30/16 15:08 09/01/16 10:50 Duoneb - NEB 1 amp Q6H PRN Administration SHORTNESS OF BREATH Atorvastatin Calcium 20 mg 08/30/16 22:00 08/31/16 22:13 Lipitor - PO 20 mg HS [facility] Administration Carvedilol 6.25 mg 08/30/16 22:00 09/01/16 09:41 Coreg - PO 6.25 mg BID [facility] Administration Fentanyl 25 mcg 08/30/16 14:27 Sublimaze Injection - IVPUSH 09/02/16 14:28 [id number] PRN PAIN Hydromorphone HCl 1 mg 08/30/16 14:05 09/01/16 01:37 Dilaudid Injection - IVPB 1 mg Q6H PRN Administration PAIN Ondansetron HCl 4 mg 08/30/16 14:05 Zofran Injection IVPB Q4H PRN NAUSEA AND/OR VOMITING Impression 1. CKD stage 3 2. CRISS which required several HD sessions 3. choledocholithiasis 4. CAD 5. hx of Renal Cell Cancer s/p nephroectomy 6. aortic stenosis 7. sepsis 8. acute respiratory failure requiring intubation 9. NSTEMI 10. bacteremia Plan - pt on voiding trial, will need stone re-inserted if he does not void - repeat labs in am - stop fluids - monitor urine output - PT/rehab Dr Medina
[2016-09-01] MEDS ORDERED: oxyCODONE HCL 5 MG TABLET PO PRN (16:14)
--- NOTE | 2016-09-01 16:19 | PN ---
Physical Exam: SUBJECTIVE: Patient seen and examined at bedside. Complaining of abdominal pain. OBJECTIVE: Vital Signs Period Temp Pulse Resp BP Sys/Hinkle Pulse Ox Last 24 Hr 97.8 F-99.2 F 63-92 18-28 114-132/53-79 94-97 GENERAL: The patient is awake, alert, and fully oriented, in no acute distress. HEAD: Normal with no signs of trauma. EYES: PERRL, extraocular movements intact, sclera anicteric, conjunctiva clear. No ptosis. LUNGS: Breath sounds equal, clear to auscultation bilaterally, no wheezes, no crackles, no accessory muscle use. HEART: Regular rate and rhythm, S1, S2 without murmur, rub or gallop. ABDOMEN: Soft, diffuse tenderness; surgical incision sites x 3 well-approximated , no erythema, no exudate EXTREMITIES: 2+ pulses, warm, well-perfused, bilateral edema improved, 1-2+ bilaterally NEUROLOGICAL: Cranial nerves II through XII grossly intact. Normal speech, gait not observed. PSYCH: Normal mood, normal affect. Laboratory Results - last 24 hr 09/01/16 09/01/16 06:00 12:00 WBC 9.4 D RBC 3.22 L Hgb 9.5 L Hct 28.9 L MCV 89.9 MCHC 32.8 RDW 17.5 H Plt Count 61 L MPV 10.7 Neutrophils % 87.2 H Lymphocytes % 7.7 L D Monocytes % 4.7 Eosinophils % 0.1 Basophils % 0.3 Sodium 140 Potassium 3.8 Chloride 101 Carbon Dioxide 29 Anion Gap 10 BUN 32 H D Creatinine 2.6 H Random Glucose 83 Calcium 7.4 L Active Medications Generic Name Dose Route Start Last Admin Trade Name Freq PRN Reason Stop Dose Admin Acetaminophen 650 mg 09/01/16 12:13 09/01/16 12:48 Tylenol - PO 650 mg Q6H PRN Administration FEVER OR PAIN Albuterol/Ipratropium 1 amp 08/30/16 15:08 09/01/16 10:50 Duoneb - NEB 1 amp Q6H PRN Administration SHORTNESS OF BREATH Atorvastatin Calcium 20 mg 08/30/16 22:00 08/31/16 22:13 Lipitor - PO 20 mg HS [facility] Administration Carvedilol 6.25 mg 08/30/16 22:00 09/01/16 09:41 Coreg - PO 6.25 mg BID [facility] Administration Ondansetron HCl 4 mg 08/30/16 14:05 Zofran Injection IVPB Q4H PRN NAUSEA AND/OR VOMITING Oxycodone HCl 5 mg 09/01/16 16:14 Roxicodone - PO Q6H PRN PAIN ASSESSMENT/PLAN 85 year-old male with a significant PMH of HTN, CAD s/p stent placement, aortic stenosis s/p TAVR, ureteral strictures s/p dilatation, and renal cell cancer s/ p right nephrectomy. Admitted for septic shock secondary to acute choledocholithiasis and E. coli bacteremia. Septic shock secondary to acute choledocholilithiasis and cholangitis s/p lap jayden 08/30/16 E.coli bacteremia --doing well postoperatively, oxycodone PRN for pain --remains afebrile, no leukocytosis --continue ursodial Acute on chronic kidney injury --Cr 2.6, appears to be new baseline --stone dc'd, voiding Thrombocytopenia --likely due to sepsis, +HIT antibody --last transfused platelets 08/14 --shikha 38k on 08/10, now 61k --no signs of bleeding, h/h stable Severe biventricular heart failure --08/08 Echo: LV severely reduced, EF 23% significantly reduced since 11/2014 ; septal akinesis, apical akinesis, anterolateeral wall severe hypokinesis, anterior wall akinesis, moderate global hypokinesis; RV moderate to severely reduced; BLAE; moderate MR, mild TR; no AI; cannot be ruled out; trace PI; pleural effusion --08/29 CXR: no vascular congestion, resolving pleural effusions --hold Lasix due to hyponatremia CAD s/p stent --hold ASA due to thrombocytopenia --continue Lipitor Aortic stenosis s/p tissue AVR --echo does not rule out aortic stenosis --resume Plavix Renal cell cancer s/p nephrectomy --stable Acute respiratory failure, resolved --extubated 08/14 Hypertension --continue carvedilol F/E/N Fluids: PO intake adequate Electrolytes: replete as indicated Nutrition: low sodium, fat controlled DVT prophylaxis: NO HEPARIN, 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 DNR/DNI. Visit type - Emergency Visit Emergency Visit: Yes ED Registration Date: 08/06/16 Care time: The patient presented to the Emergency Department on the above date and was hospitalized for further evaluation of their emergent condition. - New Patient This patient is new to me today: No - Critical Care Critical Care patient: No
[2016-09-01] MEDS: CLOPIDOGREL BISULFATE 75 MG TABLET (FP) PO SCH (18:03)
--- NOTE | 2016-09-01 18:23 | PN ---
Progress Note (short form) - Note Progress Note: Chief Complaint: Events noted, notes reviewed, denies any chest pain or dyspnea History of Present Illness: Seen and examined. Events noted, notes reviewed, denies any chest pain or dyspnea - Current Medication List Current Medications Acetaminophen (Tylenol -) 650 mg PO Q6H PRN PRN Reason: FEVER OR PAIN Last Admin: 09/01/16 12:48 Dose: 650 mg Albuterol/Ipratropium (Duoneb -) 1 amp NEB Q6H PRN PRN Reason: SHORTNESS OF BREATH Last Admin: 09/01/16 10:50 Dose: 1 amp Atorvastatin Calcium (Lipitor -) 20 mg PO HS [facility] Last Admin: 08/31/16 22:13 Dose: 20 mg Carvedilol (Coreg -) 6.25 mg PO BID [facility] Last Admin: 09/01/16 09:41 Dose: 6.25 mg Clopidogrel Bisulfate (Plavix -) 75 mg PO DAILY [facility] Last Admin: 09/01/16 18:03 Dose: 75 mg Ondansetron HCl (Zofran Injection) 4 mg IVPB Q4H PRN PRN Reason: NAUSEA AND/OR VOMITING Oxycodone HCl (Roxicodone -) 5 mg PO Q6H PRN PRN Reason: PAIN - Objective Vital Signs: Last Vital Signs Temp Pulse Resp BP Pulse Ox 98.1 F 74 18 123/58 97 09/01/16 15:44 09/01/16 15:44 09/01/16 15:44 09/01/16 15:44 09/01/16 10:50 Constitutional: No Distress, Calm Neck: Supple Cardiovascular: S1 S2 Regular Rate and Rhythm Respiratory: Diminished at the Bases Gastrointestinal: Soft Benign Normal Bowel Sounds Ext: No Edema Labs: CBC, BMP 09/01/16 12:00 09/01/16 06:00 Hepatic Panel Total Bilirubin 1.2 mg/dL (0.2-1.0) H 08/31/16 06:30 Direct Bilirubin 0.9 mg/dL (0.0-0.2) H 08/29/16 07:00 AST 69 U/L (15-37) H 08/31/16 06:30 ALT 24 U/L (12-78) 08/31/16 06:30 Alkaline Phosphatase 188 U/L (45-117) H D 08/31/16 06:30 Albumin 1.9 g/dl (3.4-5.0) L 08/31/16 06:30 INR, PTT INR 1.14 (0.82-1.09) 08/29/16 07:00 Fibrinogen 463.0 mg/dL (238-498) D 08/13/16 05:35 Assessment/Plan ASSESSMENT: 1. POD#2 lap cholecystectomy and umbilical fluid collection drainage (biliary septic shock with E. coli, acute cholangitis post ERCP, balloon sphincteroplasty and stent placement - post leukocytosis and lactic acidosis) 2. Post hypoxemic respiratory failure 3. Post TAVR for severe 4. CAD, S/P PCI/stent with demand ischemic injury angina pectoris 5. Severe bi-ventricular failure with pleural effusions 6. Hypertension 7. Renal carcinoma post right nephrectomy 8. CKD 9. Thrombocytopenia 10. Anemia PLAN: 1. Diuretic as needed 2. Continue Carvedilol 3. Continue Lipitor 4. Continue Plavix with caution considering the above noted thrombocytopenia Huber Alexandre MD
[2016-09-01] MEDS: ATORVASTATIN CA 20 MG TABLET (FP) PO SCH (21:41)
[2016-09-02 08:28] LABS: CALCIUM 7.4 mg/dL (8.5-10.1); COCKROFT - GAULT 23.6; CREATININE 2.8 mg/dL (0.7-1.3)
[2016-09-02] MEDS: CLOPIDOGREL BISULFATE 75 MG TABLET (FP) PO SCH (10:09)
[2016-09-02] MEDS: CARVEDILOL 6.25 MG TABLET (FP) PO SCH ×2 (10:09→21:32)
--- NOTE | 2016-09-02 11:44 | PN ---
Progress Note (short form) - Note Progress Note: PULMONARY Some surgical pain but less today. Denies shortness of breath, cough or chest pain. Last Vital Signs Temp Pulse Resp BP Pulse Ox 99.0 F 68 20 119/51 96 09/02/16 10:00 09/02/16 10:00 09/02/16 10:00 09/02/16 10:00 09/01/16 21:00 Gen: NAD at rest Heart: RRR Lung: decreased breath sounds at the bases Abd: soft, nontender Ext: less edema CBC, BMP 09/01/16 12:00 09/02/16 06:10 Active Medications Acetaminophen (Tylenol -) 650 mg PO Q6H PRN PRN Reason: FEVER OR PAIN Last Admin: 09/01/16 21:44 Dose: 650 mg Albuterol/Ipratropium (Duoneb -) 1 amp NEB Q6H PRN PRN Reason: SHORTNESS OF BREATH Last Admin: 09/01/16 10:50 Dose: 1 amp Atorvastatin Calcium (Lipitor -) 20 mg PO HS [facility] Last Admin: 09/01/16 21:41 Dose: 20 mg Carvedilol (Coreg -) 6.25 mg PO BID [facility] Last Admin: 09/02/16 10:09 Dose: 6.25 mg Clopidogrel Bisulfate (Plavix -) 75 mg PO DAILY [facility] Last Admin: 09/02/16 10:09 Dose: 75 mg Ondansetron HCl (Zofran Injection) 4 mg IVPB Q4H PRN PRN Reason: NAUSEA AND/OR VOMITING Oxycodone HCl (Roxicodone -) 5 mg PO Q6H PRN PRN Reason: PAIN A/P Acute Cholangitis Gram Negative Bacteremia s/p ERCP/sphincteroplasty/stent placement s/p Acute Hypoxic Respiratory Failure s/p Laparascopic Cholecystectomy Acute on Chronic Renal Failure improving CAD +Troponins likely Demand Ischemia s/p TAVR for severe Aortic Stenosis Thrombocytopenia - pain control - incentive spirometry - lasix as needed - completed antibiotics - monitor urine output, creatinine - DVT prophylaxis - rehab/PT
--- NOTE | 2016-09-02 14:26 | PN ---
Progress Note (short form) - Note Progress Note: Chief Complaint: Events noted, notes reviewed, denies any chest pain or dyspnea History of Present Illness: Seen and examined. Events noted, notes reviewed, denies any chest pain or dyspnea - Current Medication List Current Medications Acetaminophen (Tylenol -) 650 mg PO Q6H PRN PRN Reason: FEVER OR PAIN Last Admin: 09/01/16 21:44 Dose: 650 mg Albuterol/Ipratropium (Duoneb -) 1 amp NEB Q6H PRN PRN Reason: SHORTNESS OF BREATH Last Admin: 09/01/16 10:50 Dose: 1 amp Atorvastatin Calcium (Lipitor -) 20 mg PO HS [facility] Last Admin: 09/01/16 21:41 Dose: 20 mg Carvedilol (Coreg -) 6.25 mg PO BID [facility] Last Admin: 09/02/16 10:09 Dose: 6.25 mg Clopidogrel Bisulfate (Plavix -) 75 mg PO DAILY [facility] Last Admin: 09/02/16 10:09 Dose: 75 mg Ondansetron HCl (Zofran Injection) 4 mg IVPB Q4H PRN PRN Reason: NAUSEA AND/OR VOMITING Oxycodone HCl (Roxicodone -) 5 mg PO Q6H PRN PRN Reason: PAIN - Objective Vital Signs: Last Vital Signs Temp Pulse Resp BP Pulse Ox 99.0 F 68 20 119/51 96 09/02/16 10:00 09/02/16 10:00 09/02/16 10:00 09/02/16 10:00 09/01/16 21:00 Constitutional: No Distress, Calm Neck: Supple Cardiovascular: S1 S2 Regular Rate and Rhythm Respiratory: Diminished at the Bases Gastrointestinal: Soft Benign Normal Bowel Sounds Ext: No Edema Labs: CBC, BMP 09/01/16 12:00 09/02/16 06:10 Assessment/Plan ASSESSMENT: 1. POD#3 post lap cholecystectomy and umbilical fluid collection drainage (post biliary septic shock with E. coli, acute cholangitis post ERCP, balloon sphincteroplasty and stent placement - post leukocytosis and lactic acidosis) 2. Post hypoxemic respiratory failure 3. Post TAVR for severe 4. CAD post PCI/stent with demand ischemic injury angina pectoris 5. Severe bi-ventricular failure with pleural effusions 6. Hypertension 7. Renal carcinoma post right nephrectomy 8. CKD 9. Thrombocytopenia 10. Anemia PLAN: 1. Diuretic as needed 2. Continue Carvedilol 3. Continue Lipitor 4. Continue Plavix with caution considering the above noted thrombocytopenia Huber Alexandre MD
--- NOTE | 2016-09-02 16:18 | PN ---
Progress Note, Physician History of Present Illness: Pt seen and examined at bedside. He is awake and alert. He tolerated voiding trial. - Current Medication List Current Medications: Active Medications Acetaminophen (Tylenol -) 650 mg PO Q6H PRN PRN Reason: FEVER OR PAIN Last Admin: 09/01/16 21:44 Dose: 650 mg Albuterol/Ipratropium (Duoneb -) 1 amp NEB Q6H PRN PRN Reason: SHORTNESS OF BREATH Last Admin: 09/01/16 10:50 Dose: 1 amp Atorvastatin Calcium (Lipitor -) 20 mg PO HS [facility] Last Admin: 09/01/16 21:41 Dose: 20 mg Carvedilol (Coreg -) 6.25 mg PO BID [facility] Last Admin: 09/02/16 10:09 Dose: 6.25 mg Clopidogrel Bisulfate (Plavix -) 75 mg PO DAILY [facility] Last Admin: 09/02/16 10:09 Dose: 75 mg Ondansetron HCl (Zofran Injection) 4 mg IVPB Q4H PRN PRN Reason: NAUSEA AND/OR VOMITING Oxycodone HCl (Roxicodone -) 5 mg PO Q6H PRN PRN Reason: PAIN - Objective Vital Signs: Vital Signs Temperature 98.2 F 09/02/16 14:38 Pulse Rate 67 09/02/16 14:38 Respiratory Rate 18 09/02/16 14:38 Blood Pressure 116/57 09/02/16 14:38 O2 Sat by Pulse Oximetry (%) 96 09/01/16 21:00 Constitutional: Yes: Calm Eyes: Yes: Conjunctiva Clear HENT: Yes: Atraumatic Neck: Yes: Supple Gastrointestinal: Yes: Soft Genitourinary: Yes: Incontinence Musculoskeletal: Yes: Muscle Weakness Edema: Yes Edema: LLE: Trace, RLE: Trace Neurological: Yes: Oriented Psychiatric: Yes: Oriented Labs: CBC, BMP 09/01/16 12:00 09/02/16 06:10 INR, PTT INR 1.14 (0.82-1.09) 08/29/16 07:00 Fibrinogen 463.0 mg/dL (238-498) D 08/13/16 05:35 Problem List - Problems (1) CAD (coronary artery disease) Code(s): I25.10 - ATHSCL HEART DISEASE OF [place] CORONARY ARTERY W/O ANG PCTRS Qualifiers: Coronary Disease-Associated Artery/Lesion type: unspecified vessel or lesion type [place] vs. transplanted heart: [place] heart Associated angina: without angina Qualified Code(s): I25.10 - Atherosclerotic heart disease of [place] coronary artery without angina pectoris (2) Calculus of common duct with obstruction Code(s): K80.51 - CALCULUS OF BILE DUCT W/O CHOLANGITIS OR CHOLECYST W OBST (3) Choledocholithiasis Code(s): K80.50 - CALCULUS OF BILE DUCT W/O CHOLANGITIS OR CHOLECYST W/O OBST (4) Renal cancer Code(s): C64.9 - MALIGNANT NEOPLASM OF UNSP KIDNEY, EXCEPT RENAL PELVIS Qualifiers: Laterality: right Qualified Code(s): C64.1 - Malignant neoplasm of right kidney, except renal pelvis (5) CRISS (acute kidney injury) Code(s): N17.9 - ACUTE KIDNEY FAILURE, UNSPECIFIED (6) CKD (chronic kidney disease) Code(s): N18.9 - CHRONIC KIDNEY DISEASE, UNSPECIFIED Assessment/Plan Current Medications Generic Name Dose Route Start Last Admin Trade Name Freq PRN Reason Stop Dose Admin Acetaminophen 650 mg 09/01/16 12:13 09/01/16 21:44 Tylenol - PO 650 mg Q6H PRN Administration FEVER OR PAIN Albuterol/Ipratropium 1 amp 08/30/16 15:08 09/01/16 10:50 Duoneb - NEB 1 amp Q6H PRN Administration SHORTNESS OF BREATH Atorvastatin Calcium 20 mg 08/30/16 22:00 09/01/16 21:41 Lipitor - PO 20 mg HS SUBHA Administration Carvedilol 6.25 mg 08/30/16 22:00 09/02/16 10:09 Coreg - PO 6.25 mg BID SUBHA Administration Clopidogrel Bisulfate 75 mg 09/01/16 16:45 09/02/16 10:09 Plavix - PO 75 mg DAILY SUBHA Administration Ondansetron HCl 4 mg 08/30/16 14:05 Zofran Injection IVPB Q4H PRN NAUSEA AND/OR VOMITING Oxycodone HCl 5 mg 09/01/16 16:14 Roxicodone - PO Q6H PRN PAIN Impression 1. CKD stage 3 2. CRISS which required several HD sessions 3. choledocholithiasis 4. CAD 5. hx of Renal Cell Cancer s/p nephroectomy 6. aortic stenosis 7. sepsis 8. acute respiratory failure requiring intubation 9. NSTEMI 10. bacteremia Plan - creatinine is rising - check bmp in am and if elevated get a bladder scan - will give diuretics as needed - avoid nephrotoxins - PT/rehab Dr Medina
--- NOTE | 2016-09-02 18:09 | PN ---
Physical Exam: SUBJECTIVE: Patient seen and examined oob to chair. Abdominal/incisional pain is much better. OBJECTIVE: Vital Signs Period Temp Pulse Resp BP Sys/Hinkle Pulse Ox Last 24 Hr 98.1 F-99.7 F 66-71 18-20 93-119/35-57 96-97 GENERAL: The patient is awake, alert, and fully oriented, in no acute distress. HEAD: Normal with no signs of trauma. EYES: PERRL, extraocular movements intact, sclera anicteric, conjunctiva clear. No ptosis. LUNGS: Breath sounds equal, clear to auscultation bilaterally, no wheezes, no crackles, no accessory muscle use. HEART: Regular rate and rhythm, S1, S2 without murmur, rub or gallop. ABDOMEN: Soft, not tender, not distended; surgical incision sites x 3 edges well -approximated; serosanguinous drainage from umbilicus EXTREMITIES: 2+ pulses, warm, well-perfused, no edema. NEUROLOGICAL: Cranial nerves II through XII grossly intact. Normal speech, gait not observed. Laboratory Results - last 24 hr 09/02/16 06:10 Sodium 138 Potassium 3.5 Chloride 99 Carbon Dioxide 26 Anion Gap 13 BUN 37 H Creatinine 2.8 H Random Glucose 82 Calcium 7.4 L Active Medications Generic Name Dose Route Start Last Admin Trade Name Freq PRN Reason Stop Dose Admin Acetaminophen 650 mg 09/01/16 12:13 09/01/16 21:44 Tylenol - PO 650 mg Q6H PRN Administration FEVER OR PAIN Albuterol/Ipratropium 1 amp 08/30/16 15:08 09/01/16 10:50 Duoneb - NEB 1 amp Q6H PRN Administration SHORTNESS OF BREATH Atorvastatin Calcium 20 mg 08/30/16 22:00 09/01/16 21:41 Lipitor - PO 20 mg HS SUBHA Administration Carvedilol 6.25 mg 08/30/16 22:00 09/02/16 10:09 Coreg - PO 6.25 mg BID SUBHA Administration Clopidogrel Bisulfate 75 mg 09/01/16 16:45 09/02/16 10:09 Plavix - PO 75 mg DAILY SUB[facility] Administration Ondansetron HCl 4 mg 08/30/16 14:05 Zofran Injection IVPB Q4H PRN NAUSEA AND/OR VOMITING Oxycodone HCl 5 mg 09/01/16 16:14 Roxicodone - PO Q6H PRN PAIN ASSESSMENT/PLAN 85 year-old male with a significant PMH of HTN, CAD s/p stent placement, aortic stenosis s/p TAVR, ureteral strictures s/p dilatation, and renal cell cancer s/ p right nephrectomy. Admitted for septic shock secondary to acute choledocholithiasis and E. coli bacteremia. Septic shock secondary to acute choledocholilithiasis and cholangitis s/p lap jayden 08/30/16 E.coli bacteremia --doing well postoperatively, oxycodone PRN for pain --remains afebrile, no leukocytosis --continue ursodial Acute on chronic kidney injury --Cr 2.8 --stone dc'd, voiding Thrombocytopenia --likely due to sepsis, +HIT antibody --last transfused platelets 08/14 --shikha 38k on 08/10, now 61k --no signs of bleeding, h/h stable Severe biventricular heart failure --08/08 Echo: LV severely reduced, EF 23% significantly reduced since 11/2014 ; septal akinesis, apical akinesis, anterolateeral wall severe hypokinesis, anterior wall akinesis, moderate global hypokinesis; RV moderate to severely reduced; BLAE; moderate MR, mild TR; no AI; cannot be ruled out; trace PI; pleural effusion --weight is up 3.5kg in 2 days, restart lasix IV 40mg daily --repeat CXR in am CAD s/p stent --hold ASA due to thrombocytopenia --continue Lipitor Aortic stenosis s/p tissue AVR --resume Plavix Renal cell cancer s/p nephrectomy --stable Acute respiratory failure, resolved --extubated 08/14 Hypertension --continue carvedilol F/E/N Fluids: PO intake adequate Electrolytes: replete as indicated Nutrition: low sodium, fat controlled DVT prophylaxis: NO HEPARIN, 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 DNR/DNI. Visit type - Emergency Visit Emergency Visit: Yes ED Registration Date: 08/06/16 Care time: The patient presented to the Emergency Department on the above date and was hospitalized for further evaluation of their emergent condition. - New Patient This patient is new to me today: No - Critical Care Critical Care patient: No
[2016-09-02] MEDS: FUROSEMIDE 40 MG/4 ML INJECTABLE VIAL IVPUSH SCH (18:53)
[2016-09-02] MEDS: ACETAMINOPHEN 325 MG TABLET (FP) PO PRN (21:32)
[2016-09-02] MEDS: ATORVASTATIN CA 20 MG TABLET (FP) PO SCH (21:32)
[2016-09-03 07:55] LABS: ALBUMIN 1.7 g/dl (3.4-5.0); CALCIUM 7.7 mg/dL (8.5-10.1)
[2016-09-03 07:57] LABS: BILIRUBIN,TOTAL 1.2 mg/dL (0.2-1.0); COCKROFT - GAULT 25.49; CREATININE 2.5 mg/dL (0.7-1.3); TOT PROT 4.3 g/dl (6.4-8.2)
[2016-09-03 08:16] LABS: BASOPHIL 0.2 % (0-2.0); EOSINOPHIL 0.4 % (0-4.5); MCH 29.4 pg (25.7-33.7); MCHC 33.5 g/dl (32.0-35.9); MEAN CELL VOLUME 87.9 fl (80-96); MEAN PLT VOLUME 9.7 fl (7.5-11.1); NEUTROPHILS 85.5 % (42.8-82.8); PLATELET COUNT 69 K/MM3 (134-434); RDW 17.3 % (11.9-15.9)
[2016-09-03] MEDS ORDERED: POTASSIUM CHLORIDE TABS 20 MEQ TABLET.ER (FP) PO ONE (09:30)
[2016-09-03] MEDS: CARVEDILOL 6.25 MG TABLET (FP) PO SCH ×2 (09:55→21:49)
[2016-09-03] MEDS: FUROSEMIDE 40 MG/4 ML INJECTABLE VIAL IVPUSH SCH (09:56)
[2016-09-03] MEDS: CLOPIDOGREL BISULFATE 75 MG TABLET (FP) PO SCH (09:56)
--- NOTE | 2016-09-03 11:09 | PN ---
Progress Note, Physician History of Present Illness: Post lap cholecystectomy and umbilical fluid collection drainage, no complaints. - Current Medication List Current Medications: Active Medications Acetaminophen (Tylenol -) 650 mg PO Q6H PRN PRN Reason: FEVER OR PAIN Last Admin: 09/02/16 21:32 Dose: 650 mg Albuterol/Ipratropium (Duoneb -) 1 amp NEB Q6H PRN PRN Reason: SHORTNESS OF BREATH Last Admin: 09/01/16 10:50 Dose: 1 amp Atorvastatin Calcium (Lipitor -) 20 mg PO HS [facility] Last Admin: 09/02/16 21:32 Dose: 20 mg Carvedilol (Coreg -) 6.25 mg PO BID [facility] Last Admin: 09/03/16 09:55 Dose: 6.25 mg Clopidogrel Bisulfate (Plavix -) 75 mg PO DAILY [facility] Last Admin: 09/03/16 09:56 Dose: 75 mg Furosemide (Lasix Injection -) 40 mg IVPUSH DAILY [facility] Last Admin: 09/03/16 09:56 Dose: 40 mg Ondansetron HCl (Zofran Injection) 4 mg IVPB Q4H PRN PRN Reason: NAUSEA AND/OR VOMITING Oxycodone HCl (Roxicodone -) 5 mg PO Q6H PRN PRN Reason: PAIN Last Admin: 09/03/16 02:16 Dose: 5 mg - Objective Vital Signs: Vital Signs Temperature 100.6 F H 09/03/16 06:00 Pulse Rate 72 09/03/16 06:00 Respiratory Rate 20 09/03/16 06:00 Blood Pressure 123/50 09/03/16 06:00 O2 Sat by Pulse Oximetry (%) 94 L 09/02/16 21:00 Constitutional: Yes: No Distress, Calm Neck: Yes: Supple Cardiovascular: Yes: Regular Rate and Rhythm Respiratory: Yes: Regular, Diminished Gastrointestinal: Yes: Normal Bowel Sounds, Soft Edema: No Labs: CBC, BMP 09/03/16 06:00 09/03/16 06:00 INR, PTT INR 1.14 (0.82-1.09) 08/29/16 07:00 Fibrinogen 463.0 mg/dL (238-498) D 08/13/16 05:35 Problem List - Problems (1) CAD (coronary artery disease) Code(s): I25.10 - ATHSCL HEART DISEASE OF [place] CORONARY ARTERY W/O ANG PCTRS Qualifiers: Coronary Disease-Associated Artery/Lesion type: unspecified vessel or lesion type [place] vs. transplanted heart: [place] heart Associated angina: without angina Qualified Code(s): I25.10 - Atherosclerotic heart disease of [place] coronary artery without angina pectoris (2) CKD (chronic kidney disease) Code(s): N18.9 - CHRONIC KIDNEY DISEASE, UNSPECIFIED (3) Calculus of common duct with obstruction Code(s): K80.51 - CALCULUS OF BILE DUCT W/O CHOLANGITIS OR CHOLECYST W OBST (4) History of percutaneous coronary intervention Code(s): Z98.890 - OTHER SPECIFIED POSTPROCEDURAL STATES (5) S/P ERCP Code(s): Z98.890 - OTHER SPECIFIED POSTPROCEDURAL STATES (6) Thrombocytopenia Code(s): D69.6 - THROMBOCYTOPENIA, UNSPECIFIED (7) Left bundle branch block Code(s): I44.7 - LEFT BUNDLE-BRANCH BLOCK, UNSPECIFIED (8) Demand ischemia Code(s): I24.8 - OTHER FORMS OF ACUTE ISCHEMIC HEART DISEASE (9) Anemia Code(s): D64.9 - ANEMIA, UNSPECIFIED Qualifiers: Anemia type: unspecified type Qualified Code(s): D64.9 - Anemia, unspecified (10) S/P laparoscopic cholecystectomy Code(s): Z90.49 - ACQUIRED ABSENCE OF OTHER SPECIFIED PARTS OF DIGESTIVE TRACT Assessment/Plan 1. POD#4 post lap cholecystectomy and umbilical fluid collection drainage (post biliary septic shock with E. coli, acute cholangitis post ERCP, balloon sphincteroplasty and stent placement - post leukocytosis and lactic acidosis) 2. Post hypoxemic respiratory failure 3. Post TAVR for severe 4. CAD post PCI/stent with demand ischemic injury angina pectoris 5. Severe bi-ventricular failure with pleural effusions 6. Hypertension 7. Renal carcinoma post right nephrectomy 8. CKD 9. Thrombocytopenia 10. Anemia PLAN: 1. Continuing Lasix 40 qd as needed, replete K as you are 2. Continue Carvedilol 6.25 bid, CARLA-I/ARB once renal fxn stabilizes 3. Continue Lipitor 20 qhs 4. Continue Plavix 75 qd with caution considering the above noted thrombocytopenia 5. D/c planning to SNF
--- NOTE | 2016-09-03 11:25 | PN ---
Progress Note (short form) - Note Progress Note: No acute events On diet Pain controlled Vital Signs Period Temp Pulse Resp BP Sys/Hinkle Pulse Ox Last 24 Hr 98.2 F-100.6 F 67-74 18-20 116-129/50-58 94-97 Abd soft, NT, wounds c/d/i, umbilicus packed CBC,CMP WBC 8.0 K/mm3 (4.0-10.0) 09/03/16 06:00 RBC 3.03 M/mm3 (4.00-5.60) L 09/03/16 06:00 Hgb 8.9 GM/dL (11.7-16.9) L 09/03/16 06:00 Hct 26.6 % (35.4-49) L 09/03/16 06:00 MCV 87.9 fl (80-96) 09/03/16 06:00 MCHC 33.5 g/dl (32.0-35.9) 09/03/16 06:00 RDW 17.3 % (11.9-15.9) H 09/03/16 06:00 Plt Count 69 K/MM3 (134-434) L 09/03/16 06:00 MPV 9.7 fl (7.5-11.1) 09/03/16 06:00 Neutrophils % 85.5 % (42.8-82.8) H 09/03/16 06:00 Lymphocytes % 7.3 % (8-40) L 09/03/16 06:00 Monocytes % 6.6 % (3.8-10.2) 09/03/16 06:00 Eosinophils % 0.4 % (0-4.5) D 09/03/16 06:00 Basophils % 0.2 % (0-2.0) 09/03/16 06:00 Band Neutrophils 11.0 % (0-10) H D 08/08/16 05:15 Metamyelocytes 5 % (0-2) H D 08/07/16 20:30 Myelocytes 9 % (0-2) H D 08/07/16 20:30 Differential Comment Manual diff done 08/23/16 06:30 Dohle Bodies 1+ 08/08/16 05:15 Platelet Estimate Decreased (NORMAL) 08/23/16 06:30 Platelet Comment No clumping noted 08/08/16 05:15 Polychromasia Few 08/08/16 05:15 Hypochromic-Microcytic Few 08/08/16 05:15 Sodium 139 mmol/L (136-145) 09/03/16 06:00 Potassium 3.4 mmol/L (3.5-5.1) L 09/03/16 06:00 Chloride 102 mmol/L (98-107) 09/03/16 06:00 Carbon Dioxide 26 mmol/L (21-32) 09/03/16 06:00 Anion Gap 11 (8-16) 09/03/16 06:00 BUN 36 mg/dL (7-18) H 09/03/16 06:00 Creatinine 2.5 mg/dL (0.7-1.3) H 09/03/16 06:00 Creat Clearance w eGFR 24.55 (>60) 09/03/16 06:00 POC Glucometer 244 UNITS (()) 09/02/16 21:52 Random Glucose 85 mg/dL (74-106) 09/03/16 06:00 Lactic Acid 1.684 mmol/L (0.4-2.0) 08/08/16 13:20 Calcium 7.7 mg/dL (8.5-10.1) L 09/03/16 06:00 Phosphorus 3.2 mg/dL (2.5-4.9) 08/29/16 07:00 Magnesium 1.8 mg/dL (1.8-2.4) 08/29/16 07:00 Total Bilirubin 1.2 mg/dL (0.2-1.0) H 09/03/16 06:00 Direct Bilirubin 0.9 mg/dL (0.0-0.2) H 08/29/16 07:00 AST 31 U/L (15-37) D 09/03/16 06:00 ALT 17 U/L (12-78) D 09/03/16 06:00 Alkaline Phosphatase 156 U/L (45-117) H 09/03/16 06:00 Creatine Kinase 60 IU/L (39-308) 08/11/16 00:00 Creatine Kinase Index 11.8 % (0.0-5.0) H* 08/08/16 13:20 CK-MB (CK-2) 18.446 ng/ml (0.5-3.6) H 08/08/16 13:20 CK-MB (CK-2) Rel Index Cancelled 08/08/16 13:20 Troponin I 1.73 ng/ml (0.00-0.05) H* 08/11/16 05:15 C-Reactive Protein 3.1 MG/DL (0.00-0.3) H D 08/25/16 06:30 Total Protein 4.3 g/dl (6.4-8.2) L 09/03/16 06:00 Albumin 1.7 g/dl (3.4-5.0) L 09/03/16 06:00 Total Amylase 55 U/L (25-115) D 08/26/16 06:30 Lipase 170 U/L (73-393) 08/26/16 06:30 OOB Diet Daily wound packing Awaiting SNF placement Problem List - Problems (1) Umbilical discharge Code(s): R19.8 - OT SYMPTOMS AND SIGNS INVOLVING THE DGSTV SYS AND ABDOMEN
--- NOTE | 2016-09-03 11:30 | PN ---
Progress Note (short form) - Note Progress Note: Incisional discomfort is better today. Denies shortness of breath, cough or chest pain. Intake & Output 08/31/16 09/01/16 09/02/16 09/03/16 23:59 23:59 23:59 23:59 Intake Total 350 440 462 160 Output Total 1200 550 Balance -850 -110 462 160 Weight 198 lb 5 oz 198 lb 7 oz 190 lb 14.4 oz Last Vital Signs Temp Pulse Resp BP Pulse Ox 100.6 F H 72 20 123/50 94 L 09/03/16 06:00 09/03/16 06:00 09/03/16 06:00 09/03/16 06:00 09/02/16 21:00 Active Medications Acetaminophen (Tylenol -) 650 mg PO Q6H PRN PRN Reason: FEVER OR PAIN Last Admin: 09/02/16 21:32 Dose: 650 mg Albuterol/Ipratropium (Duoneb -) 1 amp NEB Q6H PRN PRN Reason: SHORTNESS OF BREATH Last Admin: 09/01/16 10:50 Dose: 1 amp Atorvastatin Calcium (Lipitor -) 20 mg PO HS [facility] Last Admin: 09/02/16 21:32 Dose: 20 mg Carvedilol (Coreg -) 6.25 mg PO BID [facility] Last Admin: 09/03/16 09:55 Dose: 6.25 mg Clopidogrel Bisulfate (Plavix -) 75 mg PO DAILY [facility] Last Admin: 09/03/16 09:56 Dose: 75 mg Furosemide (Lasix Injection -) 40 mg IVPUSH DAILY [facility] Last Admin: 09/03/16 09:56 Dose: 40 mg Ondansetron HCl (Zofran Injection) 4 mg IVPB Q4H PRN PRN Reason: NAUSEA AND/OR VOMITING Oxycodone HCl (Roxicodone -) 5 mg PO Q6H PRN PRN Reason: PAIN Last Admin: 09/03/16 02:16 Dose: 5 mg Gen: NAD at rest Heart: RRR Lung: decreased breath sounds at the bases Abd: soft, nontender Ext: less edema Laboratory Results - last 24 hr 09/02/16 09/03/16 09/03/16 21:52 06:00 06:00 WBC 8.0 RBC 3.03 L Hgb 8.9 L Hct 26.6 L MCV 87.9 MCHC 33.5 RDW 17.3 H Plt Count 69 L MPV 9.7 Neutrophils % 85.5 H Lymphocytes % 7.3 L Monocytes % 6.6 Eosinophils % 0.4 D Basophils % 0.2 Sodium 139 Potassium 3.4 L Chloride 102 Carbon Dioxide 26 Anion Gap 11 BUN 36 H Creatinine 2.5 H Creat Clearance w eGFR 24.55 POC Glucometer 244 Random Glucose 85 Calcium 7.7 L Total Bilirubin 1.2 H AST 31 D ALT 17 D Alkaline Phosphatase 156 H Total Protein 4.3 L Albumin 1.7 L A/P Acute Cholangitis Gram Negative Bacteremia s/p ERCP/sphincteroplasty/stent placement s/p Acute Hypoxic Respiratory Failure s/p Laparascopic Cholecystectomy Acute on Chronic Renal Failure improving CAD +Troponins likely Demand Ischemia s/p TAVR for severe Aortic Stenosis Thrombocytopenia - pain control - incentive spirometry - lasix as needed - completed antibiotics - DVT prophylaxis - D/C to rehab Dr Ledesma
--- NOTE | 2016-09-03 12:58 | PATH ---
Surgical Pathology Report Patient Name: MAGGIE CHOWDARY Med. Rec. #: [id number] /Age/Gender: 1930 (Age: 85) / M Account: [id number] Location: [facility] MED/SURG Taken: 08/30/2016 Received: 08/31/2016 Reported: 09/03/2016 Physicians: Santosh Weems M.D. Specimen(s) Received GALLBLADDER Clinical History Cholangitis, umbilical drainage/collection Final Diagnosis GALLBLADDER, CHOLECYSTECTOMY: MARKED CHRONIC CHOLECYSTITIS; ADENOMYOMATOUS HYPERPLASIA. Electronically Signed Daqaun Castillo M.D. Gross Description Received in formalin, labeled "gallbladder" is a 7.7 x 2.5 x 2.3 cm gallbladder with a 0.2 cm in length portion of cystic duct attached. The outer surface is young-pink with a focal defect and varies from smooth to shaggy. The lumen contains young, tenacious bile. No choleliths are identified within the lumen or within the container. The mucosa is young and velvety. The wall of the gallbladder is focally thickened at the fundus and ranges from 0.1-0.9 cm in thickness. Hydraulic Operator sections are submitted in 3 cassettes. /08/31/2016 saudi08/31/2016
--- NOTE | 2016-09-03 15:09 | PN ---
Progress Note, Physician History of Present Illness: Pt seen and examined at bedside. He is awake and alert. He denies shortness of breath. He does have increased lower extremity edema. - Current Medication List Current Medications: Active Medications Acetaminophen (Tylenol -) 650 mg PO Q6H PRN PRN Reason: FEVER OR PAIN Last Admin: 09/02/16 21:32 Dose: 650 mg Albuterol/Ipratropium (Duoneb -) 1 amp NEB Q6H PRN PRN Reason: SHORTNESS OF BREATH Last Admin: 09/01/16 10:50 Dose: 1 amp Atorvastatin Calcium (Lipitor -) 20 mg PO HS [facility] Last Admin: 09/02/16 21:32 Dose: 20 mg Carvedilol (Coreg -) 6.25 mg PO BID [facility] Last Admin: 09/03/16 09:55 Dose: 6.25 mg Clopidogrel Bisulfate (Plavix -) 75 mg PO DAILY [facility] Last Admin: 09/03/16 09:56 Dose: 75 mg Furosemide (Lasix Injection -) 40 mg IVPUSH DAILY [facility] B[facility] Last Admin: 09/03/16 09:56 Dose: 40 mg Ondansetron HCl (Zofran Injection) 4 mg IVPB Q4H PRN PRN Reason: NAUSEA AND/OR VOMITING Oxycodone HCl (Roxicodone -) 5 mg PO Q6H PRN PRN Reason: PAIN Last Admin: 09/03/16 02:16 Dose: 5 mg - Objective Vital Signs: Vital Signs Temperature 99.4 F 09/03/16 10:00 Pulse Rate 67 09/03/16 10:00 Respiratory Rate 18 09/03/16 10:00 Blood Pressure 119/54 09/03/16 10:00 O2 Sat by Pulse Oximetry (%) 98 09/03/16 09:00 Constitutional: Yes: Calm Eyes: Yes: Conjunctiva Clear HENT: Yes: Atraumatic Neck: Yes: Supple Cardiovascular: Yes: S1, S2 Respiratory: Yes: CTA Bilaterally Gastrointestinal: Yes: Normal Bowel Sounds, Soft Genitourinary: Yes: Incontinence Musculoskeletal: Yes: Muscle Weakness Edema: Yes Edema: LLE: 1+, RLE: 1+ Neurological: Yes: Oriented Psychiatric: Yes: Oriented Labs: CBC, BMP 09/03/16 06:00 09/03/16 06:00 INR, PTT INR 1.14 (0.82-1.09) 08/29/16 07:00 Fibrinogen 463.0 mg/dL (238-498) D 08/13/16 05:35 Problem List - Problems (1) CAD (coronary artery disease) Code(s): I25.10 - ATHSCL HEART DISEASE OF [place] CORONARY ARTERY W/O ANG PCTRS Qualifiers: Coronary Disease-Associated Artery/Lesion type: unspecified vessel or lesion type [place] vs. transplanted heart: [place] heart Associated angina: without angina Qualified Code(s): I25.10 - Atherosclerotic heart disease of [place] coronary artery without angina pectoris (2) Calculus of common duct with obstruction Code(s): K80.51 - CALCULUS OF BILE DUCT W/O CHOLANGITIS OR CHOLECYST W OBST (3) Choledocholithiasis Code(s): K80.50 - CALCULUS OF BILE DUCT W/O CHOLANGITIS OR CHOLECYST W/O OBST (4) Renal cancer Code(s): C64.9 - MALIGNANT NEOPLASM OF UNSP KIDNEY, EXCEPT RENAL PELVIS Qualifiers: Laterality: right Qualified Code(s): C64.1 - Malignant neoplasm of right kidney, except renal pelvis (5) CRISS (acute kidney injury) Code(s): N17.9 - ACUTE KIDNEY FAILURE, UNSPECIFIED (6) CKD (chronic kidney disease) Code(s): N18.9 - CHRONIC KIDNEY DISEASE, UNSPECIFIED Assessment/Plan Current Medications Generic Name Dose Route Start Last Admin Trade Name Freq PRN Reason Stop Dose Admin Acetaminophen 650 mg 09/01/16 12:13 09/02/16 21:32 Tylenol - PO 650 mg Q6H PRN Administration FEVER OR PAIN Albuterol/Ipratropium 1 amp 08/30/16 15:08 09/01/16 10:50 Duoneb - NEB 1 amp Q6H PRN Administration SHORTNESS OF BREATH Atorvastatin Calcium 20 mg 08/30/16 22:00 09/02/16 21:32 Lipitor - PO 20 mg HS SUBHA Administration Carvedilol 6.25 mg 08/30/16 22:00 09/03/16 09:55 Coreg - PO 6.25 mg BID SUBHA Administration Clopidogrel Bisulfate 75 mg 09/01/16 16:45 09/03/16 09:56 Plavix - PO 75 mg DAILY [facility] Administration Furosemide 40 mg 09/02/16 18:15 09/03/16 09:56 Lasix Injection - IVPUSH 40 mg DAILY [facility] Administration Ondansetron HCl 4 mg 08/30/16 14:05 Zofran Injection IVPB Q4H PRN NAUSEA AND/OR VOMITING Oxycodone HCl 5 mg 09/01/16 16:14 09/03/16 02:16 Roxicodone - PO 5 mg Q6H PRN Administration PAIN Impression 1. CKD stage 3 2. CRISS which required several HD sessions 3. choledocholithiasis 4. CAD 5. hx of Renal Cell Cancer s/p nephroectomy 6. aortic stenosis 7. sepsis 8. acute respiratory failure requiring intubation 9. NSTEMI 10. bacteremia Plan - renal function is better today - give a dose of lasix, ordered already - supplement potassium - monitor renal function - avoid nephrotoxins - PT/rehab Dr Medina
--- NOTE | 2016-09-03 15:46 | DS ---
Physical Exam: SUBJECTIVE: Patient seen and examined OBJECTIVE: Vital Signs Period Temp Pulse Resp BP Sys/Hinkle Pulse Ox Last 24 Hr 98.8 F-100.6 F 67-74 18-20 116-129/50-58 94-98 PHYSICAL EXAM GENERAL: The patient is awake, alert, and fully oriented, in no acute distress. HEAD: Normal with no signs of trauma. EYES: PERRL, extraocular movements intact, sclera anicteric, conjunctiva clear. ENT: Ears normal, nares patent, oropharynx clear without exudates, moist mucous membranes. NECK: Trachea midline, full range of motion, supple. LUNGS: Breath sounds equal, clear to auscultation bilaterally, no wheezes, no crackles, no accessory muscle use. HEART: Regular rate and rhythm, S1, S2 without murmur, rub or gallop. ABDOMEN: Soft, nontender, nondistended, normoactive bowel sounds, no guarding, no rebound, no hepatosplenomegaly, no masses. EXTREMITIES: 2+ pulses, warm, well-perfused, no edema. NEUROLOGICAL: Cranial nerves II through XII grossly intact. Normal speech, gait not observed. PSYCH: Normal mood, normal affect. SKIN: Warm, dry, normal turgor, no rashes or lesions noted. LABS Laboratory Results - last 24 hr 09/02/16 09/03/16 09/03/16 21:52 06:00 06:00 WBC 8.0 RBC 3.03 L Hgb 8.9 L Hct 26.6 L MCV 87.9 MCHC 33.5 RDW 17.3 H Plt Count 69 L MPV 9.7 Neutrophils % 85.5 H Lymphocytes % 7.3 L Monocytes % 6.6 Eosinophils % 0.4 D Basophils % 0.2 Sodium 139 Potassium 3.4 L Chloride 102 Carbon Dioxide 26 Anion Gap 11 BUN 36 H Creatinine 2.5 H Creat Clearance w eGFR 24.55 POC Glucometer 244 Random Glucose 85 Calcium 7.7 L Total Bilirubin 1.2 H AST 31 D ALT 17 D Alkaline Phosphatase 156 H Total Protein 4.3 L Albumin 1.7 L HOSPITAL COURSE: Date of Admission:08/06/16 Date of Discharge: 09/03/16 Minutes to complete discharge: 35 Discharge Summary Reason For Visit: CALCULUS OF COMMON DUCT WITH OBSTRUCTION Current Active Problems CRISS (acute kidney injury) (Acute) Acute cholangitis (Acute) Acute hypoxemic respiratory failure (Acute) Anemia (Acute) Bacteremia due to Gram-negative bacteria (Acute) Biliary sepsis (Acute) CAD (coronary artery disease) (Acute) CKD (chronic kidney disease) (Acute) Calculus of common duct with obstruction (Acute) Cellulitis, umbilical (Acute) Choledocholithiasis (Acute) DVT prophylaxis (Acute) Demand ischemia (Acute) Gram negative septic shock (Acute) History of percutaneous coronary intervention (Acute) Left bundle branch block (Acute) Pre-operative cardiovascular examination (Acute) Renal cancer (Acute) S/P ERCP (Acute) S/P laparoscopic cholecystectomy (Acute) Thrombocytopenia (Acute) Umbilical discharge (Acute) - Instructions Referrals: Melvin Goff MD [Primary Care Provider] - [facility] - Home Medications Comprehensive Discharge Medication List: Ambulatory Orders Aspirin Coated [Ecotrin -] 81 mg PO DAILY 04/19/14 Montelukast Na [Singulair -] 10 mg PO HS 12/02/15 Atorvastatin Ca [Lipitor] 40 mg PO HS 05/13/16 Finasteride 5 mg PO DAILY 05/13/16 [place]-3 Fatty Acids [[place]-3] 1,500 mg PO 08/06/16 Carvedilol [Coreg -] 6.25 mg PO BID #60 tablet 09/03/16 Furosemide [Lasix] 20 mg PO DAILY #30 tablet 09/03/16 - Discharge Referral Referred to [facility] No
[2016-09-03] MEDS: ACETAMINOPHEN 325 MG TABLET (FP) PO PRN (18:19)
[2016-09-03] MEDS: ATORVASTATIN CA 20 MG TABLET (FP) PO SCH (21:49)
[2016-09-04 08:36] LABS: CALCIUM 7.3 mg/dL (8.5-10.1); COCKROFT - GAULT 24.74; CREATININE 2.5 mg/dL (0.7-1.3)
[2016-09-04] MEDS: CLOPIDOGREL BISULFATE 75 MG TABLET (FP) PO SCH (09:34)
[2016-09-04] MEDS: FUROSEMIDE 40 MG/4 ML INJECTABLE VIAL IVPUSH SCH (09:34)
[2016-09-04] MEDS: CARVEDILOL 6.25 MG TABLET (FP) PO SCH (09:34)
--- NOTE | 2016-09-04 10:05 | PN ---
Progress Note (short form) - Note Progress Note: No acute events overnight. Denies shortness of breath, cough or chest pain. Intake & Output 09/01/16 09/02/16 09/03/16 09/04/16 23:59 23:59 23:59 23:59 Intake Total 440 462 220 Output Total 550 Balance -110 462 220 Weight 198 lb 7 oz 190 lb 14.4 oz 185 lb 4.8 oz Last Vital Signs Temp Pulse Resp BP Pulse Ox 98.6 F 72 20 120/60 98 09/04/16 08:42 09/04/16 08:42 09/04/16 08:42 09/04/16 08:42 09/03/16 21:00 Active Medications Acetaminophen (Tylenol -) 650 mg PO Q6H PRN PRN Reason: FEVER OR PAIN Last Admin: 09/03/16 18:19 Dose: 650 mg Albuterol/Ipratropium (Duoneb -) 1 amp NEB Q6H PRN PRN Reason: SHORTNESS OF BREATH Last Admin: 09/01/16 10:50 Dose: 1 amp Atorvastatin Calcium (Lipitor -) 20 mg PO HS [facility] Last Admin: 09/03/16 21:49 Dose: 20 mg Carvedilol (Coreg -) 6.25 mg PO BID [facility] Last Admin: 09/04/16 09:34 Dose: 6.25 mg Clopidogrel Bisulfate (Plavix -) 75 mg PO DAILY [facility] Last Admin: 09/04/16 09:34 Dose: 75 mg Furosemide (Lasix Injection -) 40 mg IVPUSH DAILY [facility] Last Admin: 09/04/16 09:34 Dose: 40 mg Ondansetron HCl (Zofran Injection) 4 mg IVPB Q4H PRN PRN Reason: NAUSEA AND/OR VOMITING Oxycodone HCl (Roxicodone -) 5 mg PO Q6H PRN PRN Reason: PAIN Last Admin: 09/03/16 02:16 Dose: 5 mg Gen: NAD at rest Heart: RRR Lung: decreased breath sounds at the bases Abd: soft, nontender Ext: less edema Laboratory Results - last 24 hr 09/04/16 07:15 Sodium 140 Potassium 3.7 Chloride 103 Carbon Dioxide 29 Anion Gap 8 BUN 38 H Creatinine 2.5 H Random Glucose 73 L Calcium 7.3 L A/P Acute Cholangitis Gram Negative Bacteremia s/p ERCP/sphincteroplasty/stent placement s/p Acute Hypoxic Respiratory Failure s/p Laparascopic Cholecystectomy Acute on Chronic Renal Failure improving CAD +Troponins likely Demand Ischemia s/p TAVR for severe Aortic Stenosis Thrombocytopenia - pain control - incentive spirometry - completed antibiotics - DVT prophylaxis - D/C to rehab Dr Ledesma
--- NOTE | 2016-09-04 10:22 | PN ---
Progress Note (short form) - Note Progress Note: No acute events Pain controlled Tolerating diet Vital Signs Period Temp Pulse Resp BP Sys/Hinkle Pulse Ox Last 24 Hr 98.2 F-101.2 F 69-79 20-20 102-125/50-60 98 Abd soft, wound c/d/i, umbilicus packed CBC, BMP 09/03/16 06:00 09/04/16 07:15 Daily wound packing OOB Awaiting SNF placement Problem List - Problems (1) Umbilical discharge Code(s): R19.8 - OTH SYMPTOMS AND SIGNS INVOLVING THE DGSTV SYS AND ABDOMEN
--- NOTE | 2016-09-04 11:59 | PN ---
Progress Note, Physician Chief Complaint: Events noted Awake and alert. Not in distress History of Present Illness: Patient was seen and examined. Chart was reviewed Denies chest pain, SOB or palpitations - Current Medication List Current Medications: Active Medications Acetaminophen (Tylenol -) 650 mg PO Q6H PRN PRN Reason: FEVER OR PAIN Last Admin: 09/03/16 18:19 Dose: 650 mg Albuterol/Ipratropium (Duoneb -) 1 amp NEB Q6H PRN PRN Reason: SHORTNESS OF BREATH Last Admin: 09/01/16 10:50 Dose: 1 amp Atorvastatin Calcium (Lipitor -) 20 mg PO HS [facility] Last Admin: 09/03/16 21:49 Dose: 20 mg Carvedilol (Coreg -) 6.25 mg PO BID [facility] Last Admin: 09/04/16 09:34 Dose: 6.25 mg Clopidogrel Bisulfate (Plavix -) 75 mg PO DAILY [facility] Last Admin: 09/04/16 09:34 Dose: 75 mg Furosemide (Lasix Injection -) 40 mg IVPUSH DAILY [facility] Last Admin: 09/04/16 09:34 Dose: 40 mg Ondansetron HCl (Zofran Injection) 4 mg IVPB Q4H PRN PRN Reason: NAUSEA AND/OR VOMITING Oxycodone HCl (Roxicodone -) 5 mg PO Q6H PRN PRN Reason: PAIN Last Admin: 09/03/16 02:16 Dose: 5 mg - Objective Vital Signs: Vital Signs Temperature 98.6 F 09/04/16 08:42 Pulse Rate 97 H 09/04/16 09:25 Respiratory Rate 20 09/04/16 08:42 Blood Pressure 120/60 09/04/16 08:42 O2 Sat by Pulse Oximetry (%) 99 09/04/16 09:25 Neck: Yes: Supple Cardiovascular: Yes: Regular Rate and Rhythm, S1, S2 Respiratory: Yes: CTA Bilaterally Gastrointestinal: Yes: Normal Bowel Sounds, Soft. No: Tenderness Edema: No Labs: CBC, BMP 09/03/16 06:00 09/04/16 07:15 Problem List - Problems (1) Cellulitis, umbilical Code(s): L03.316 - CELLULITIS OF UMBILICUS (2) Choledocholithiasis Code(s): K80.50 - CALCULUS OF BILE DUCT W/O CHOLANGITIS OR CHOLECYST W/O OBST (3) Hypertension Code(s): I10 - ESSENTIAL (PRIMARY) HYPERTENSION Qualifiers: Hypertension type: essential hypertension Qualified Code(s): I10 - Essential (primary) hypertension (4) CAD (coronary artery disease) Code(s): I25.10 - ATHSCL HEART DISEASE OF [place] CORONARY ARTERY W/O ANG PCTRS Qualifiers: Coronary Disease-Associated Artery/Lesion type: unspecified vessel or lesion type [place] vs. transplanted heart: [place] heart Associated angina: without angina Qualified Code(s): I25.10 - Atherosclerotic heart disease of [place] coronary artery without angina pectoris (5) History of percutaneous coronary intervention Code(s): Z98.890 - OTHER SPECIFIED POSTPROCEDURAL STATES (6) Renal cancer Code(s): C64.9 - MALIGNANT NEOPLASM OF UNSP KIDNEY, EXCEPT RENAL PELVIS Qualifiers: Laterality: right Qualified Code(s): C64.1 - Malignant neoplasm of right kidney, except renal pelvis Assessment/Plan 1. Post lap cholecystectomy and umbilical fluid collection drainage (post biliary septic shock with E. coli, acute cholangitis post ERCP, balloon sphincteroplasty and stent placement - post leukocytosis and lactic acidosis) 2. Post hypoxemic respiratory failure 3. Post TAVR for severe 4. CAD post PCI/stent with demand ischemic injury angina pectoris 5. Severe bi-ventricular failure with pleural effusions 6. Hypertension 7. Renal carcinoma post right nephrectomy 8. CKD 9. Thrombocytopenia 10. Anemia PLAN: 1. Continue Lasix as tolerate and replete K as needed 2. Continue Carvedilol 6.25 mg bid, ACEI/ARB once renal function stabilizes 3. Continue Lipitor 4. Continue Plavix with caution considering the above noted thrombocytopenia 5. Await SNF placement Further plans are to follow Juan Hays MD
--- NOTE | 2016-09-04 13:13 | HOSP ---
Physical Examination Vital Signs: Vital Signs Temperature 98.6 F 09/04/16 08:42 Pulse Rate 97 H 09/04/16 09:25 Respiratory Rate 20 09/04/16 08:42 Blood Pressure 120/60 09/04/16 08:42 O2 Sat by Pulse Oximetry (%) 99 09/04/16 09:25 Labs: CBC, BMP 09/03/16 06:00 09/04/16 07:15 Hospitalist Encounter Assessment: Patient seen and examined. No sob or difficulty laying flat. Breathing is regular He was able to ambulate with PT. Bed confirmed at [facility] To continue lasix 40mg daily x2 days and then reassess in [place] by provider Daily abdominal wound changes and packing Referral information placed in discharge paperwork
[2016-09-04 14:03] VITALS: BP 95/52; PULSE 65; TEMP 98.2
--- NOTE | 2016-09-04 14:46 | PN ---
Progress Note, Physician History of Present Illness: Pt seen and examined at bedside. He is awake and alert. He denies shortness of breath. - Current Medication List Current Medications: Active Medications Acetaminophen (Tylenol -) 650 mg PO Q6H PRN PRN Reason: FEVER OR PAIN Last Admin: 09/03/16 18:19 Dose: 650 mg Albuterol/Ipratropium (Duoneb -) 1 amp NEB Q6H PRN PRN Reason: SHORTNESS OF BREATH Last Admin: 09/01/16 10:50 Dose: 1 amp Atorvastatin Calcium (Lipitor -) 20 mg PO HS [facility] Last Admin: 09/03/16 21:49 Dose: 20 mg Carvedilol (Coreg -) 6.25 mg PO BID [facility] Last Admin: 09/04/16 09:34 Dose: 6.25 mg Clopidogrel Bisulfate (Plavix -) 75 mg PO DAILY [facility] Last Admin: 09/04/16 09:34 Dose: 75 mg Furosemide (Lasix Injection -) 40 mg IVPUSH DAILY [facility] Last Admin: 09/04/16 09:34 Dose: 40 mg Ondansetron HCl (Zofran Injection) 4 mg IVPB Q4H PRN PRN Reason: NAUSEA AND/OR VOMITING Oxycodone HCl (Roxicodone -) 5 mg PO Q6H PRN PRN Reason: PAIN Last Admin: 09/03/16 02:16 Dose: 5 mg - Objective Vital Signs: Vital Signs Temperature 98.2 F 09/04/16 14:01 Pulse Rate 65 09/04/16 14:01 Respiratory Rate 18 09/04/16 14:01 Blood Pressure 95/52 09/04/16 14:01 O2 Sat by Pulse Oximetry (%) 99 09/04/16 09:25 Constitutional: Yes: Calm Eyes: Yes: Conjunctiva Clear HENT: Yes: Atraumatic Neck: Yes: Supple Cardiovascular: Yes: S1, S2 Respiratory: Yes: CTA Bilaterally Gastrointestinal: Yes: Normal Bowel Sounds, Soft Genitourinary: Yes: WNL Musculoskeletal: Yes: WNL Edema: No Neurological: Yes: Oriented Psychiatric: Yes: Oriented Labs: CBC, BMP 09/03/16 06:00 09/04/16 07:15 INR, PTT INR 1.14 (0.82-1.09) 08/29/16 07:00 Fibrinogen 463.0 mg/dL (238-498) D 08/13/16 05:35 Problem List - Problems (1) CAD (coronary artery disease) Code(s): I25.10 - ATHSCL HEART DISEASE OF [place] CORONARY ARTERY W/O ANG PCTRS Qualifiers: Coronary Disease-Associated Artery/Lesion type: unspecified vessel or lesion type [place] vs. transplanted heart: [place] heart Associated angina: without angina Qualified Code(s): I25.10 - Atherosclerotic heart disease of [place] coronary artery without angina pectoris (2) Calculus of common duct with obstruction Code(s): K80.51 - CALCULUS OF BILE DUCT W/O CHOLANGITIS OR CHOLECYST W OBST (3) Choledocholithiasis Code(s): K80.50 - CALCULUS OF BILE DUCT W/O CHOLANGITIS OR CHOLECYST W/O OBST (4) Renal cancer Code(s): C64.9 - MALIGNANT NEOPLASM OF UNSP KIDNEY, EXCEPT RENAL PELVIS Qualifiers: Laterality: right Qualified Code(s): C64.1 - Malignant neoplasm of right kidney, except renal pelvis (5) CRISS (acute kidney injury) Code(s): N17.9 - ACUTE KIDNEY FAILURE, UNSPECIFIED (6) CKD (chronic kidney disease) Code(s): N18.9 - CHRONIC KIDNEY DISEASE, UNSPECIFIED Assessment/Plan Current Medications Generic Name Dose Route Start Last Admin Trade Name Freq PRN Reason Stop Dose Admin Acetaminophen 650 mg 09/01/16 12:13 09/03/16 18:19 Tylenol - PO 650 mg Q6H PRN Administration FEVER OR PAIN Albuterol/Ipratropium 1 amp 08/30/16 15:08 09/01/16 10:50 Duoneb - NEB 1 amp Q6H PRN Administration SHORTNESS OF BREATH Atorvastatin Calcium 20 mg 08/30/16 22:00 09/03/16 21:49 Lipitor - PO 20 mg HS SUBHA Administration Carvedilol 6.25 mg 08/30/16 22:00 09/04/16 09:34 Coreg - PO 6.25 mg BID SUBHA Administration Clopidogrel Bisulfate 75 mg 09/01/16 16:45 09/04/16 09:34 Plavix - PO 75 mg DAILY SUBHA Administration Furosemide 40 mg 09/02/16 18:15 09/04/16 09:34 Lasix Injection - IVPUSH 40 mg DAILY SUBHA Administration Ondansetron HCl 4 mg 08/30/16 14:05 Zofran Injection IVPB Q4H PRN NAUSEA AND/OR VOMITING Oxycodone HCl 5 mg 09/01/16 16:14 09/03/16 02:16 Roxicodone - PO 5 mg Q6H PRN Administration PAIN Impression 1. CKD stage 3 2. CRISS which required several HD sessions 3. choledocholithiasis 4. CAD 5. hx of Renal Cell Cancer s/p nephroectomy 6. aortic stenosis 7. sepsis 8. acute respiratory failure requiring intubation 9. NSTEMI 10. bacteremia Plan - pts volume status is improved - can hold lasix and monitor volume status closely - renal function is stabilizing - recommend checking bmp again in a few days - will need outpt follow up - pt follows with Dr Antonio - avoid nephrotoxins - PT/rehab Dr Medina
== END 2016-09-04 16:54 | DRG 417 ==
LOC: JER 15:15 → JERBED 19:37 → J7W 08-07 01:22 → JSAMEDAYSX 08-07 15:45 → JICU 08-07 19:40 → J8W 08-15 18:38
PROVIDERS: ADMIT Internal Medicine; ATTEND Nurse Practitioner Acute Care
PROC: 05HM33Z Insertion of Infusion Device into Right Internal Jugular Vein, Percutaneous Approach (ICD-10-PCS; 2016-08-08)
PROC: 30233R1 Transfusion of Nonautologous Platelets into Peripheral Vein, Percutaneous Approach (ICD-10-PCS; 2016-08-10)
PROC: 05HN33Z Insertion of Infusion Device into Left Internal Jugular Vein, Percutaneous Approach (ICD-10-PCS; 2016-08-13)
PROC: 30233N1 Transfusion of Nonautologous Red Blood Cells into Peripheral Vein, Percutaneous Approach (ICD-10-PCS; 2016-08-15)
PROC: 5A1955Z Respiratory Ventilation, Greater than 96 Consecutive Hours (ICD-10-PCS; 2016-08-18)
PROC: 0BH17EZ Insertion of Endotracheal Airway into Trachea, Via Natural or Artificial Opening (ICD-10-PCS; 2016-08-18)
PROC: 0FPD8DZ Removal of Intraluminal Device from Pancreatic Duct, Via Natural or Artificial Opening Endoscopic (ICD-10-PCS; 2016-08-24)
PROC: 0F798DZ Dilation of Common Bile Duct with Intraluminal Device, Via Natural or Artificial Opening Endoscopic (ICD-10-PCS; 2016-08-24)
PROC: BF10YZZ Fluoroscopy of Bile Ducts using Other Contrast (ICD-10-PCS; 2016-08-24)
PROC: 0FC98ZZ Extirpation of Matter from Common Bile Duct, Via Natural or Artificial Opening Endoscopic (ICD-10-PCS; principal; 2016-08-24 14:00)
PROC: 0FT44ZZ Resection of Gallbladder, Percutaneous Endoscopic Approach (ICD-10-PCS; 2016-08-30)
PROC: 0J9C0ZZ Drainage of Pelvic Region Subcutaneous Tissue and Fascia, Open Approach (ICD-10-PCS; 2016-08-30)
DX: K80.46 Calculus of bile duct with acute and chronic cholecystitis without obstruction (principal); A41.9 Sepsis, unspecified organism; I21.4 Non-ST elevation (NSTEMI) myocardial infarction; J96.01 Acute respiratory failure with hypoxia; R65.21 Severe sepsis with septic shock; N17.0 Acute kidney failure with tubular necrosis; L03.316 Cellulitis of umbilicus; C64.1 Malignant neoplasm of right kidney, except renal pelvis; E87.2 Acidosis; D62 Acute posthemorrhagic anemia; R74.0 Nonspecific elevation of levels of transaminase and lactic acid dehydrogenase [LDH]; D72.829 Elevated white blood cell count, unspecified; I35.0 Nonrheumatic aortic (valve) stenosis; I25.10 Atherosclerotic heart disease of native coronary artery without angina pectoris; Z98.61 Coronary angioplasty status; D69.6 Thrombocytopenia, unspecified; I12.9 Hypertensive chronic kidney disease with stage 1 through stage 4 chronic kidney disease, or unspecified chronic kidney disease; N18.3 Chronic kidney disease, stage 3 (moderate); I44.7 Left bundle-branch block, unspecified; I95.9 Hypotension, unspecified
CPT/HCPCS: 31500; 36415; 36430; 36600; 71010-TC; 74176-TC; 74330-TC; 76000-TC; 76705-TC; 76775-TC; 76856-TC; 80048; 80053; 80076; 81003; 81015; 82150; 82248; 82436; 82542; 82550; 82553; 82570; 82803; 83605; 83690; 83735; 84100; 84133; 84300; 84484; 85025; 85027; 85362; 85384; 85610; 85730; 86022; 86140; 86704; 86706; 86708; 86803; 86850; 86900; 86901; 86922; 87040; 87070; 87186; 87205; 87340; 88300-TC; 88304-TC; 93005; 93010; 93306-TC; 94002; 94010; 94640; 94760; 94761; 97116-GP; 97162-PG; 99283-25; G0480; J1644; P9034; P9038; P9047; P9058

== ENCOUNTER 2016-11-23 10:39 | Day surgery (SDC) | payer OTHER ==
[2016-11-09 14:07] VITALS: BMI 26.9
[2016-11-23] MEDS ORDERED: LEVOFLOXACIN 500 MG IVPB 100 ML IVPB ONE (11:30)
[2016-11-23] MEDS ORDERED: ROCURONIUM BROMIDE 50 MG/5 ML VIAL ONE (11:53)
[2016-11-23] MEDS ORDERED: LIDOCAINE HCL/PF 2% SDV 5ML VIAL ONE (11:53)
[2016-11-23] MEDS ORDERED: ETOMIDATE 20 MG/10 ML AMPUL IVPUSH ONE (11:53)
[2016-11-23] MEDS ORDERED: GLYCOPYRROLATE 0.2 MG/1 ML VIAL ONE ×4 (11:54)
[2016-11-23] MEDS ORDERED: PHENYLEPHRINE HCL 10 MG/1 ML SINGLE DOSE VIAL ONE (11:54)
[2016-11-23] MEDS ORDERED: NEOSTIGMINE METHYLSULFATE 0.5 MG/ML - 10 ML MDV ONE (11:54)
[2016-11-23] MEDS ORDERED: LEVOFLOXACIN 500 MG PREMIX BAG IVPB ONE (12:00)
[2016-11-23] MEDS ORDERED: METRONIDAZOLE 500 MG PREMIXED 100 ML IVPB ONE (12:30)
[2016-11-23 13:35] VITALS: TEMP 98
[2016-11-23 15:58] VITALS: BP 135/83; PULSE 67
--- NOTE | 2016-11-27 16:24 | PATH ---
Surgical Pathology Report Patient Name: MAGGIE CHOWDARY Med. Rec. #: [id number] /Age/Gender: 1930 (Age: 86) / M Account: [id number] Location: [facility]-ENDOSCOPY Taken: 11/23/2016 Received: 11/23/2016 Reported: 11/27/2016 Physicians: Ignacio Parks M.D. Specimen(s) Received OLD STENT FORM BILE DUCT Clinical History Cholelithiasis, status post stent Final Diagnosis OLD STENT, BILE DUCT, REMOVAL: STENT (GROSS EXAM). Electronically Signed Daquan Castillo M.D. Gross Description Received fresh labeled "old stent from bile duct" is a blue, coiled portion of tubing, consistent with a biliary stent. No soft tissue is present. No sections are submitted, gross only. 11/23/2016 [place]11/23/2016
== END 2016-11-23 15:30 | disposition home or self-care (01) ==
LOC: JASU-ENDO 10:39
PROVIDERS: ATTEND Internal Medicine Gastroenterology
PROC: 0FPB8DZ Removal of Intraluminal Device from Hepatobiliary Duct, Via Natural or Artificial Opening Endoscopic (ICD-10-PCS; 2016-11-23)
PROC: 0FC98ZZ Extirpation of Matter from Common Bile Duct, Via Natural or Artificial Opening Endoscopic (ICD-10-PCS; principal; 2016-11-23 11:00)
DX: K80.50 Calculus of bile duct without cholangitis or cholecystitis without obstruction (principal)
CPT/HCPCS: 76000-TC; 88300-TC

== ENCOUNTER 2016-11-24 09:15 | Inpatient (IN) | payer OTHER ==
--- NOTE | 2016-11-24 09:48 | PDOC ---
Attending Attestation - Resident Resident Name: Rafal Gomez - ED Attending Attestation I have performed the following: I have examined & evaluated the patient, The case was reviewed & discussed with the resident, I agree w/resident's findings & plan, Exceptions are as noted - HPI HPI: 11/24/16 10:12 86y M hx of nephrectomy due to renal ca, copd, bph, htn, hl, recent choledocolithiasis s/p stent removal yesterday presents with Upper abdominal pain and multiple episodes of red hemetemsis that turned borwn this morning last night and today - pt unable to toleate any oral intake. No associated fever, diarrhea/melena. On exam the pt appears pale. His abdomen noted for mild tenderness in the upper abdomen without rebound/tuarding. Stool does not look melenatotic, guaiac pending. possible GIB due to procedur yesterday? will ck labs will d/w dr. alamo will reassess - Physicial Exam PE: 11/24/16 12:16 GENERAL: The patient is awake, alert, and fully oriented, Nontoxic - in no acute distress. HEAD: Normocephalic, atraumatic. EYES: extraocular movements intact, pale sclera, conjunctiva clear. ENT: Normal voice, Moist mucous membranes. NECK: Normal range of motion, supple LUNGS: Breath sounds equal, clear to auscultation bilaterally. No wheezes, no rhonchi, no rales. HEART: Regular rate and rhythm, normal S1 and S2 without murmur, rub or gallop. ABDOMEN: soft, mild ruq tenderness, no rebound/guarding EXTREMITIES: Normal range of motion, no edema. No clubbing or cyanosis. No cords, erythema, or tenderness. NEUROLOGICAL: No facial assymetry, Normal speech, PSYCH: Normal mood, normal affect. SKIN: Warm, Dry, normal turgor, - Medical Decision Making 11/24/16 11:46 labs reviewed hgb stable noted for eelvated LFTs and T bili case dw dr. alamo requested abx due to concern for colangitis agree with liver US to eval duct size erquests admission for forther management will admit to hospitalist service 11/24/16 12:[address] ortiz, agree with admission to med surg for further management Case discussed in detail with admitting physician including history, physical exam and ancillary studies. Admitting physician has assumed care for the patient, will follow all pending diagnostics and will complete the evaluation and treatment. Heart Score/ECG Review - ECG Impressions Comment:: 11/24/16 10:16 Twelve-lead EKG was performed and reviewed by me. There is normal sinus rhythm with a normal rate. Rate of 87 Left bundle-branch block No signs of acute ischemia or sgarbossa criteria
[2016-11-24 10:00] LABS: BASOPHIL 0.4 % (0-2.0); EOSINOPHIL 0.1 % (0-4.5); MCH 32.9 pg (25.7-33.7); MCHC 33.7 g/dl (32.0-35.9); MEAN CELL VOLUME 97.7 fl (80-96); PLATELET COUNT 112 K/MM3 (134-434); RDW 17.1 % (11.9-15.9); WHITE BLOOD COUNT 7.7 K/mm3 (4.0-10.0)
--- NOTE | 2016-11-24 10:04 | PDOC ---
History of Present Illness <Sai Calabrese - Last Filed: 11/24/16 11:43> <Chidi Dow - Last Filed: 11/24/16 12:18> - History of Present Illness Initial Comments: 11/24/16 13:39 Patient is a 86 year old male with a history of CAD, IL s/p stenting, Valve replacement s/p TVAR, right nephrectomy, BPH, pancreatits, cholecystits, choledocolethiasis who presents with abdominal pain and vomiting. The patient had a cholecystectomy done in August 2016 and a subsequent stenting of his bile duct due to choledocolethiasis. He had stent removal 1 day ago and reports two episodes of vomiting with bright red blood during the evening. He reports another episode of brown vomit this morning prompting his visit to the ED today. He states that he cannot tolerate any food and has been experiencing upper abdominal since yesterday evening. The patient was prescribed post-op meds including pain medication and antibiotics, however was not able to fill them yesterday. He does endorse some subjective chills and has not measured his temperature. He denies chest pain, SOB, or changes with his bowel movements or urination. <Rafal Gomez - Last Filed: 11/24/16 13:57> - General Chief Complaint: Nausea/Vomiting Stated Complaint: VOMITING, CHILLS Time Seen by Provider: 11/24/16 09:24 Past History <Sai Calabrese - Last Filed: 11/24/16 11:43> <Chidi Dow - Last Filed: 11/24/16 12:18> - Past Medical History Anemia: No Cancer: Yes (R.KIDNEY, WITH RIGHT NEPHRECTOMY) Cardiac Disorders: Yes (valve disease) COPD: Yes Disorders: Yes (URINARY RETENTION,BPH) HTN: Yes Hypercholesterolemia: Yes - Surgical History Cardiac Surgery: Yes (Angioplasty with stent,AORTIC VALVE SX) - Immunization History Immunization Up to Date: Yes - Psycho/Social/Smoking Cessation Hx Anxiety: No Suicidal Ideation: No Smoking History: Never smoked Have you smoked in the past 12 months: No Hx Alcohol Use: No Drug/Substance Use Hx: No Substance Use Type: None Hx Substance Use Treatment: No <Rafal Gomez - Last Filed: 11/24/16 13:57> - Past Medical History Allergies/Adverse Reactions: Allergies Allergy/AdvReac Type Severity Reaction Status Date / Time No Known Allergies Allergy Verified 11/23/16 11:46 Home Medications: Ambulatory Orders Finasteride 5 mg PO DAILY 05/13/16 Carvedilol [Coreg] 6.25 mg PO BID tablet 10/03/16 Ursodiol 300 mg PO BID capsule 10/03/16 Montelukast Sodium [Singulair] 10 mg PO DAILY tablet 11/07/16 Atorvastatin Calcium 10 mg PO DAILY tablet 11/09/16 Levofloxacin [Levaquin] 500 mg PO DAILY #7 tablet 11/23/16 Metronidazole [Flagyl -] 500 mg PO BID #14 tablet 11/23/16 Tamsulosin HCl [Flomax -] 0.4 mg PO DAILY 11/23/16 Ursodiol [Actigall] 300 mg PO BID #180 capsule 11/23/16 Review of Systems - Review of Systems Constitutional: Yes: Chills. No: Fever Respiratory: No: Cough, Shortness of Breath Cardiac (ROS): No: Chest Pain, Lightheadedness ABD/GI: Yes: Nausea, Poor Appetite, Poor Fluid Intake, Vomiting. No: Constipated, Diarrhea : No: Dysuria Integumentary: No: Rash Neurological: No: Headache, Numbness, Tingling, Weakness <Rafal Gomez - Last Filed: 11/24/16 13:57> *Physical Exam - Vital Signs Last Vital Signs Temp Pulse Resp BP Pulse Ox 99.7 F H 87 20 140/85 90 L 11/24/16 10:07 11/24/16 09:36 11/24/16 09:36 11/24/16 09:36 11/24/16 09:36 <Sai Calabrese - Last Filed: 11/24/16 11:43> - Vital Signs Last Vital Signs Temp Pulse Resp BP Pulse Ox 99.7 F H 87 20 140/85 90 L 11/24/16 10:07 11/24/16 09:36 11/24/16 09:36 11/24/16 09:36 11/24/16 09:36 <Chidi Dow - Last Filed: 11/24/16 12:18> - Vital Signs Last Vital Signs Temp Pulse Resp BP Pulse Ox 99.1 F 87 20 140/85 90 L 11/24/16 09:36 11/24/16 09:36 11/24/16 09:36 11/24/16 09:36 11/24/16 09:36 - Physical Exam Comments: 11/24/16 13:47 General Appearance: Nourished, Visibly pale. No Apparent Distress HEENT: No Pharyngeal Erythema, Tonsillar Exudate, Tonsillar Erythema Respiratory/Chest: Lungs Clear, Normal Breath Sounds. No Crackles, Rales, Rhonchi, Wheezing Cardiovascular: Regular Rhythm, Regular Rate. No Murmur, Gallop/S3, Gallop/S4 Gastrointestinal/Abdominal: Normal Bowel Sounds, Soft, Tenderness to palpation in the left upper quadrant and epigastric regions. No Guarding, Rebound Extremity: Normal Capillary Refill Integumentary: Dry, Warm, Pale Neurologic: Fully Oriented, Alert, Normal Mood/Affect, Normal Response <Raafl Gomez - Last Filed: 11/24/16 13:57> ED Treatment Course - LABORATORY CBC & Chemistry Diagram: 11/24/16 09:30 11/24/16 09:30 - ADDITIONAL ORDERS Additional order review: Laboratory Results 11/24/16 11/24/16 11/24/16 10:11 10:07 09:30 INR PTT (Actin FS) VBG pH 7.37 POC VBG pCO2 47.5 POC VBG pO2 15.1 L* Mixed VBG HCO3 26.6 H Sodium Potassium Chloride Carbon Dioxide Anion Gap BUN Creatinine Creat Clearance w eGFR Random Glucose Lactic Acid Calcium Total Bilirubin AST ALT Alkaline Phosphatase Creatine Kinase Troponin I Total Protein Albumin Lipase Stool Occult Blood Negative Blood Type A POSITIVE Antibody Screen Negative 11/24/16 11/24/16 11/24/16 09:30 09:30 09:30 INR 1.18 H PTT (Actin FS) 29.3 VBG pH POC VBG pCO2 POC VBG pO2 Mixed VBG HCO3 Sodium 139 Potassium 4.8 D Chloride 104 Carbon Dioxide 26 Anion Gap 9 BUN 31 H Creatinine 1.7 H D Creat Clearance w eGFR 38.23 Random Glucose 134 H D Lactic Acid 1.9 Calcium 9.3 D Total Bilirubin 2.9 H D AST 1107 H ALT 427 H D Alkaline Phosphatase 394 H D Creatine Kinase 97 Troponin I < 0.02 D Total Protein 6.1 L D Albumin 3.0 L D Lipase 85 Stool Occult Blood Blood Type Antibody Screen 11/24/16 09:30 RBC 3.06 L MCV 97.7 H MCHC 33.7 RDW 17.1 H MPV 9.0 Neutrophils % 92.0 H Lymphocytes % 3.1 L D Monocytes % 4.4 Eosinophils % 0.1 Basophils % 0.4 - Medications Given in the ED: ED Medications Discontinued Medications Generic Name Dose Route Start Last Admin Trade Name Henry PRN Reason Stop Dose Admin Morphine Sulfate 2 mg 11/24/16 10:17 11/24/16 10:22 Morphine Injection - IVPUSH 11/24/16 10:18 2 mg ONCE ONE Administration Ondansetron HCl 4 mg 11/24/16 10:18 11/24/16 10:22 Zofran Injection IVPUSH 11/24/16 10:19 4 mg ONCE ONE Administration <Sai Calabrese - Last Filed: 11/24/16 11:43> - LABORATORY CBC & Chemistry Diagram: 11/24/16 09:30 11/24/16 09:30 - ADDITIONAL ORDERS Additional order review: Laboratory Results 11/24/16 11/24/16 11/24/16 10:11 10:07 09:30 INR PTT (Actin FS) VBG pH 7.37 POC VBG pCO2 47.5 POC VBG pO2 15.1 L* Mixed VBG HCO3 26.6 H Sodium Potassium Chloride Carbon Dioxide Anion Gap BUN Creatinine Creat Clearance w eGFR Random Glucose Lactic Acid Calcium Total Bilirubin AST ALT Alkaline Phosphatase Creatine Kinase Troponin I Total Protein Albumin Lipase Stool Occult Blood Negative Blood Type A POSITIVE Antibody Screen Negative 11/24/16 11/24/16 11/24/16 09:30 09:30 09:30 INR 1.18 H PTT (Actin FS) 29.3 VBG pH POC VBG pCO2 POC VBG pO2 Mixed VBG HCO3 Sodium 139 Potassium 4.8 D Chloride 104 Carbon Dioxide 26 Anion Gap 9 BUN 31 H Creatinine 1.7 H D Creat Clearance w eGFR 38.23 Random Glucose 134 H D Lactic Acid 1.9 Calcium 9.3 D Total Bilirubin 2.9 H D AST 1107 H ALT 427 H D Alkaline Phosphatase 394 H D Creatine Kinase 97 Troponin I < 0.02 D Total Protein 6.1 L D Albumin 3.0 L D Lipase 85 Stool Occult Blood Blood Type Antibody Screen 11/24/16 09:30 RBC 3.06 L MCV 97.7 H MCHC 33.7 RDW 17.1 H MPV 9.0 Neutrophils % 92.0 H Lymphocytes % 3.1 L D Monocytes % 4.4 Eosinophils % 0.1 Basophils % 0.4 - RADIOLOGY Radiology Studies Ordered: Category Date Time Status LIVER US [US] Stat Ultrasound 11/24/16 11:34 Ordered - Medications Given in the ED: ED Medications Discontinued Medications Generic Name Dose Route Start Last Admin Trade Name Freq PRN Reason Stop Dose Admin Morphine Sulfate 2 mg 11/24/16 10:17 11/24/16 10:22 Morphine Injection - IVPUSH 11/24/16 10:18 2 mg ONCE ONE Administration Ondansetron HCl 4 mg 11/24/16 10:18 11/24/16 10:22 Zofran Injection IVPUSH 11/24/16 10:19 4 mg ONCE ONE Administration <Chidi Dow - Last Filed: 11/24/16 12:18> - LABORATORY CBC & Chemistry Diagram: 11/24/16 09:30 11/24/16 09:30 - ADDITIONAL ORDERS Additional order review: 11/24/16 09:30 RBC 3.06 L MCV 97.7 H MCHC 33.7 RDW 17.1 H MPV 9.0 Neutrophils % 92.0 H Lymphocytes % 3.1 L D Monocytes % 4.4 Eosinophils % 0.1 Basophils % 0.4 - RADIOLOGY Radiology Studies Ordered: Category Date Time Status CHEST X-RAY PORTABLE* [RAD] Stat Radiology 11/24/16 09:33 Taken <Rafal Gomez - Last Filed: 11/24/16 13:57> Medical Decision Making - Medical Decision Making 11/24/16 11:34 Dr. Parks was called regarding the patient at 11:34am Dr. Parks was consulted regarding the patient at 11:44am [phone] <Sai Calabrese - Last Filed: 11/24/16 11:43> - Medical Decision Making 11/24/16 13:48 Patient is a 86 year old male with a history of CAD, IL s/p stenting, Valve replacement s/p TVAR, right nephrectomy, BPH, pancreatits, cholecystits, choledocolethiasis who presents with abdominal pain and vomiting. Differential includes but is not limited to: Peptic Ulcer, surgical complication, UGI bleed, choledocolethiasis, metabolic derangement. Given the patient's history of bloody vomit and that he is visibly pale, it is likely the patient has a UGI bleed possibly related to his stent removal surgery. It is also possible that the patient has choledocolethasis due to his history of similar presentations with choledocolethasis. We will perform a sepsis work up including blood cultures, cbc, cmp, vbg, troponin, lactate, chest radiograph. We will contact Dr. Parks who performed the stent removal surgery. 11/24/16 13:51 CBC demonstrated a hemoglobin of 10.1 which was higher then a hemoglobin of 8.9 2 months ago. Cmp was remarkable for some elevation in his liver enzymes. We discussed the case with Dr. Parks who believes that the patient may have choledocolethasis once again and requests that we obtain a US and admit the patient to the hospital. 11/24/16 13:55 Case discussed with [facility] and the patient has been accepted for admission. <Rafal Gomez - Last Filed: 11/24/16 13:57> *DC/Admit/Observation/Transfer <Sai Calabrese - Last Filed: 11/24/16 11:43> - Discharge Dispostion Admit: Yes <Chidi Dow - Last Filed: 11/24/16 12:18> <Rafal Gomez - Last Filed: 11/24/16 13:57> Diagnosis at time of Disposition: Elevated liver enzymes - Discharge Dispostion Condition at time of disposition: Guarded - Referrals
[2016-11-24 10:13] LABS: INR 1.18 (0.82-1.09)
[2016-11-24 10:16] LABS: ACTIVATED PTT 29.3 SECONDS (26.9-34.4)
[2016-11-24] MEDS ORDERED: morphine CARPU-JECT 2 MG/1 ML DISP.SYRIN IVPUSH ONE (10:17)
[2016-11-24] MEDS ORDERED: ONDANSETRON 4 MG/2 ML VIAL IVPUSH ONE (10:18)
[2016-11-24] MEDS ORDERED: morphine CARPU-JECT 2 MG/1 ML DISP.SYRIN ONE (10:27)
[2016-11-24 10:28] LABS: VENOUS BLOOD GAS HCO3 26.6 meq/L (19-25); VENOUS PH 7.37 (7.32-7.42)
[2016-11-24 10:28] LABS: ANION GAP 9 (8-16); BILIRUBIN,TOTAL 2.9 mg/dL (0.2-1.0); CALCIUM 9.3 mg/dL (8.5-10.1); CO2 26 mmol/L (21-32); CREATININE 1.7 mg/dL (0.7-1.3); GLUCOSE,RANDOM 134 mg/dL (74-106); TOT PROT 6.1 g/dl (6.4-8.2)
[2016-11-24 10:34] LABS: ALK PHOS 394 U/L (45-117); CPK 97 IU/L (39-308); TROPONIN I < 0.02 ng/ml (0.00-0.05)
[2016-11-24 10:39] LABS: SGOT/AST 1107 U/L (15-37); SGPT/ALT 427 U/L (12-78)
[2016-11-24] MEDS ORDERED: METRONIDAZOLE 500 MG PREMIXED 100 ML IVPB ONE ×2 (11:45→11:50)
[2016-11-24] MEDS ORDERED: LEVOFLOXACIN 750 MG IVPB 150 ML IVPB ONE (11:50)
[2016-11-24] MEDS: LEVOFLOXACIN 750 MG IVPB 150 ML IVPB ONE ×2 (11:56→15:40)
--- NOTE | 2016-11-24 12:20 | EKG ---
Test Reason : Blood Pressure : / mmHG Vent. Rate : 087 BPM Atrial Rate : 087 BPM P-R Int : 196 ms QRS Dur : 162 ms QT Int : 420 ms P-R-T Axes : 029 013 168 degrees QTc Int : 505 ms PROBABLE SINUS RHYTHM BASE LINE ARTIFACTS LEFT BUNDLE BRANCH BLOCK ABNORMAL ECG WHEN COMPARED WITH ECG OF 08-AUG-2016 04:29, NO SIGNIFICANT CHANGE WAS FOUND CLINICAL CORRELATION IS RECOMMENDED Confirmed by SOPHIE SOTELO MD ([id number] on 11/24/2016 12:20:27 PM Referred By: Confirmed By:SOPHIE SOTELO MD
--- NOTE | 2016-11-24 12:20 | HP ---
CHIEF COMPLAINT: Abdominal pain with bloody vomitting PCP: Dr. Goff GI: Dr. Parks Surgery: Dr. Weems Cardiology: Dr. Castillo HISTORY OF PRESENT ILLNESS: patient is an 86 YO white male with H/O HTN, HLD, COPD, S/P Nephroectomy ( renal carcinoma), recent Cholidocholithiasis S/P CBD stent removal yesterday who presented to the ED with one day history of med epigastric abdominal and RUQ abdominal pain and bloody vomiting. The pain started yesterday after the procedure, 9/10 in intensity, constant, stabbing , radiating to the back. the pain is associated with fever, chills, nausea and vomiting blood X 5, dark urine and black stool. Patient is not able to tolerate any food. Patient denies any chest pain, palpitation, light headedness,dizziness,weakness, Diarrhea, constipation dysuria or hematuria ER course was notable for: (1) RUQ U/S shows dilated CBD (2) Elevated LFTs and total bilirubin (3) Received morphine for pain, flagyl and levoquin for suspected cholangitis Recent Travel: NO PAST MEDICAL HISTORY: as per HPI PAST SURGICAL HISTORY: Nephrectomy, valve replacement, CBD Stent, Cholectomy. Social History: Smoking: None Alcohol:None Drugs: None Family History: Allergies No Known Allergies Allergy (Verified 11/23/16 11:46) HOME MEDICATIONS: Home Medications Medication Instructions Recorded Finasteride 5 mg PO DAILY 05/13/16 Carvedilol [Coreg] 6.25 mg PO BID tablet 10/03/16 Ursodiol 300 mg PO BID capsule 10/03/16 Montelukast Sodium [Singulair] 10 mg PO DAILY tablet 11/07/16 Atorvastatin Calcium 10 mg PO DAILY tablet 11/09/16 Levofloxacin [Levaquin] 500 mg PO DAILY #7 tablet 11/23/16 Metronidazole [Flagyl -] 500 mg PO BID #14 tablet 11/23/16 Tamsulosin HCl [Flomax -] 0.4 mg PO DAILY 11/23/16 Ursodiol [Actigall] 300 mg PO BID #180 capsule 11/23/16 REVIEW OF SYSTEMS CONSTITUTIONAL: Absent: fever, chills, diaphoresis, generalized weakness, malaise,+ loss of appetite, weight change HEENT: Absent: rhinorrhea, nasal congestion, throat pain, throat swelling, difficulty swallowing, mouth swelling, ear pain, eye pain, visual changes CARDIOVASCULAR: Absent: chest pain, syncope, palpitations, irregular heart rate, lightheadedness , peripheral edema RESPIRATORY: Absent: cough, shortness of breath, dyspnea with exertion, orthopnea, wheezing, stridor, hemoptysis GASTROINTESTINAL: Absent: + RUQ abdominal pain, abdominal distension, nausea, vomiting Blood, diarrhea, constipation, melena, hematochezia GENITOURINARY: Absent: dysuria, frequency, urgency, hesitancy, hematuria, flank pain, genital pain MUSCULOSKELETAL: Absent: myalgia, arthralgia, joint swelling, back pain, neck pain SKIN: Absent: rash, itching, pallor, echymoses on both arms due to anticoagulation, small ulcer 1X1 stage 1 on the left arm HEMATOLOGIC/IMMUNOLOGIC: Absent: easy bleeding, easy bruising, lymphadenopathy, frequent infections ENDOCRINE: Absent: unexplained weight gain, unexplained weight loss, heat intolerance, cold intolerance NEUROLOGIC: Absent: headache, focal weakness or paresthesias, dizziness, unsteady gait, seizure, mental status changes, bladder or bowel incontinence PSYCHIATRIC: Absent: anxiety, depression, suicidal or homicidal ideation, hallucinations. PHYSICAL EXAMINATION Vital Signs - 24 hr 11/24/16 11/24/16 09:36 10:07 Temperature 99.1 F 99.7 F H Pulse Rate 87 Respiratory 20 Rate Blood Pressure 140/85 O2 Sat by Pulse 90 L Oximetry (%) GENERAL: Awake, alert, and fully oriented, in mild acute distress. HEAD: Normal with no signs of trauma. EYES: Pupils equal, round and reactive to light, icteric slera, conjunctiva clear. No lid lag. EARS, NOSE, THROAT: Moist mucous membranes. NECK: Normal range of motion, supple without lymphadenopathy, JVD, or masses. LUNGS: Breath sounds equal, clear to auscultation bilaterally. No wheezes, and no crackles. No accessory muscle use. HEART: Regular rate and rhythm, normal S1 and S2 Systolic murmur 2-3/6, no rub or gallop. ABDOMEN: Soft, RUQ tendereness , not distended, normoactive bowel sounds, no guarding, no rebound, no masses. No hepatomegaly or splenomegaly. MUSCULOSKELETAL: Normal range of motion at all joints. No bony deformities or tenderness. No CVA tenderness. UPPER EXTREMITIES: 2+ pulses, warm, well-perfused. No cyanosis. No clubbing. no peripheral edema. LOWER EXTREMITIES: 2+ pulses, warm, well-perfused. No calf tenderness. trace peripheral edema. NEUROLOGICAL: Normal speech. Normal gait. PSYCHIATRIC: Cooperative. Good eye contact. Appropriate mood and affect. SKIN: Warm, dry, normal turgor, no rashes or lesions noted, normal capillary refill. Laboratory Results - last 24 hr 11/24/16 11/24/16 11/24/16 09:30 09:30 09:30 WBC 7.7 RBC 3.06 L Hgb 10.1 L D Hct 29.9 L MCV 97.7 H MCH 32.9 D MCHC 33.7 RDW 17.1 H Plt Count 112 L D MPV 9.0 Neutrophils % 92.0 H Lymphocytes % 3.1 L D Monocytes % 4.4 Eosinophils % 0.1 Basophils % 0.4 INR 1.18 H PTT (Actin FS) 29.3 VBG pH POC VBG pCO2 POC VBG pO2 Mixed VBG HCO3 Sodium 139 Potassium 4.8 D Chloride 104 Carbon Dioxide 26 Anion Gap 9 BUN 31 H Creatinine 1.7 H D Creat Clearance w eGFR 38.23 Random Glucose 134 H D Lactic Acid Calcium 9.3 D Total Bilirubin 2.9 H D AST 1107 H ALT 427 H D Alkaline Phosphatase 394 H D Creatine Kinase 97 Troponin I < 0.02 D Total Protein 6.1 L D Albumin 3.0 L D Lipase 85 Stool Occult Blood Blood Type Antibody Screen 11/24/16 11/24/16 11/24/16 09:30 09:30 10:07 WBC RBC Hgb Hct MCV MCH MCHC RDW Plt Count MPV Neutrophils % Lymphocytes % Monocytes % Eosinophils % Basophils % INR PTT (Actin FS) VBG pH POC VBG pCO2 POC VBG pO2 Mixed VBG HCO3 Sodium Potassium Chloride Carbon Dioxide Anion Gap BUN Creatinine Creat Clearance w eGFR Random Glucose Lactic Acid 1.9 Calcium Total Bilirubin AST ALT Alkaline Phosphatase Creatine Kinase Troponin I Total Protein Albumin Lipase Stool Occult Blood Negative Blood Type A POSITIVE Antibody Screen Negative 11/24/16 10:11 WBC RBC Hgb Hct MCV MCH MCHC RDW Plt Count MPV Neutrophils % Lymphocytes % Monocytes % Eosinophils % Basophils % INR PTT (Actin FS) VBG pH 7.37 POC VBG pCO2 47.5 POC VBG pO2 15.1 L* Mixed VBG HCO3 26.6 H Sodium Potassium Chloride Carbon Dioxide Anion Gap BUN Creatinine Creat Clearance w eGFR Random Glucose Lactic Acid Calcium Total Bilirubin AST ALT Alkaline Phosphatase Creatine Kinase Troponin I Total Protein Albumin Lipase Stool Occult Blood Blood Type Antibody Screen Current Medications Aclidinium Clements (Tudorza -) 1 puff IH BID [facility] Atorvastatin Calcium (Lipitor -) 10 mg PO HS [facility] Carvedilol (Coreg -) 6.25 mg PO BID [facility] Finasteride (Proscar -) 5 mg PO DAILY [facility] Levofloxacin (Levaquin 250 Mg Premixed Ivpb -) 50 mls @ 50 mls/hr IVPB DAILY [facility] Metronidazole (Flagyl 500mg Premixed Ivpb -) 100 mls @ 100 mls/hr IVPB Q8H-IV SUBHA Last Admin: 11/24/16 17:51 Dose: 100 mls/hr Lactated Ringer's (Lactated Ringers Solution) 1,000 mls @ 75 mls/hr IV ASDIR [facility] Last Admin: 11/24/16 17:51 Dose: 75 mls/hr Montelukast Sodium (Singulair -) 10 mg PO HS [facility] Morphine Sulfate (Morphine Injection -) 2 mg IVPUSH Q4H PRN PRN Reason: PAIN Pantoprazole Sodium (Protonix -) 40 mg PO DAILY [facility] Last Admin: 11/24/16 17:51 Dose: Not Given Tamsulosin HCl (Flomax -) 0.4 mg PO DAILY@0830 [facility] Ursodiol (Actigal -) 300 mg PO BID [facility] EKG on 11/24: NSR with LBBB, unchanged compared to prior, no e/o ACS Liver U/S on 11/24: dilated CBD 1.8cm CXR on 11/24: No acute pathology ASSESSMENT/PLAN: bPatient is 86 Year old white male with H/O choledocholithiasis and cholangitis s/p stent removal presented to Ed with one day history of RUQ abdominal pain and bloody vomiting ,admitted to med-surg inpatient service for common bile duct obstruction. #Acute choledocholithiasis with possi * Likely 2/2 residual stones post stent removal * CBD dilated 1.8 cm * Cont. empiric levaquin 500 mg po daily (adjusted to 250 by the pharmacy due to transaminitis and flagyl 500 BID for 7 days * Cont. actigall (Ursodiol) 300 mg PO BID [facility] * Supportive care to optimize for ERCP * NPO * Pain control with Morphine 2 mg PO Q4 Hr PRN * GI consulted , recommend repeat MRCP with consideration to do ERCP #vomitting Blood(hematechemesis) likely 2/2 gastric mucosal erosions from ERCP day before * Patient had 5 episode of bloody vomiting * improved * Stool ocult negative * Start Protonix 40 mg PO daily * IV fluids Riger lactate @ 75 CC /Hr * Montitor clinically * Consider ENT consult if continue to bleed #Transaminitis , likely 2/2 to CBD obstruction * AST /ALT 1107/427, ALP 304 , total Bili 2.9 * Check direct Bilirubin * INR 118, PTT 29.3 * Trend liver enzyme * Monitor clinically * US showed #CKD, stage 3to 4 * Stable * Bun/Cr 56/1.2 * Monitor Cr * F/U clinically #CAD s/p stent, chronic * Continue Lipitor 10 mg PO HS SUBHA * Continue Coreg(carvedilol) 6.25 mg PO BID [facility] * EKG did not show any specific ST/T wave changes #Aortic stenosis s/p TAVR * Systolic Murmur 2-3 6 * Cont. plavix and ASA # Renal cell cancer s/p nephrectomy * Stable * single kidney , avoid nephrotoxic including contrast #Hypertension * continue carvedilol 6.25 mg PO BID SUBHA * F/u BP #BPH, chronic * Stable * Continue home meds finasteride 5 mg PO DAILY and flomax 0.4 mg PO DAILY #FEN * F: IVF @ 75cc/hr ringer lactate * E: Monitor lytes * NPO for now till GI consulted #Prophylaxis * DVT: SCDs, * GI: Protonix 40 mg PO daily #Dispo * Awaiting GI evaluation Visit type - Emergency Visit Emergency Visit: Yes ED Registration Date: 11/24/16 Care time: The patient presented to the Emergency Department on the above date and was hospitalized for further evaluation of their emergent condition. - New Patient This patient is new to me today: Yes Date on this admission: 11/28/16 - Critical Care Critical Care patient: No
--- NOTE | 2016-11-24 13:06 | HP ---
CHIEF COMPLAINT: vomiting blood and abd pain PCP: Dr. Goff GI: Dr. Parks Surgery: Dr. Weems Cardiology: Dr. Castillo HISTORY OF PRESENT ILLNESS: Briefly, 86 yo M h/o choledocholithiasis and cholangitis s/p stent removal yesterday presented to the ED with abdominal pain and vomiting since this morning. 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 Denies chest pain, shortness of breath, dizziness, weakness,dysuria, diarrhea or constipation. 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 (on Asa, Plavix), CAD ( Stent, 96), R-Nephrectomy (Kidney Ca), Urethral Strictures s/p Dilation PAST SURGICAL HISTORY: R nephrectomy, urethral stricture dilation, TAVR Social History: Smoking: Never Alcohol: None Drugs: None lives with spouse, employed- [employer] Family History: Non-Contributory Allergies No Known Allergies Allergy (Verified 11/23/16 11:46) HOME MEDICATIONS: Home Medications Medication Instructions Recorded Finasteride 5 mg PO DAILY 05/13/16 Carvedilol [Coreg] 6.25 mg PO BID tablet 10/03/16 Ursodiol 300 mg PO BID capsule 10/03/16 Montelukast Sodium [Singulair] 10 mg PO DAILY tablet 11/07/16 Atorvastatin Calcium 10 mg PO DAILY tablet 11/09/16 Levofloxacin [Levaquin] 500 mg PO DAILY #7 tablet 11/23/16 Metronidazole [Flagyl -] 500 mg PO BID #14 tablet 11/23/16 Tamsulosin HCl [Flomax -] 0.4 mg PO DAILY 11/23/16 Ursodiol [Actigall] 300 mg PO BID #180 capsule 11/23/16 REVIEW OF SYSTEMS CONSTITUTIONAL: fever, chills Absent: diaphoresis, generalized weakness, malaise, loss of appetite, weight change HEENT: Absent: rhinorrhea, nasal congestion, throat pain, throat swelling, difficulty swallowing, mouth swelling, ear pain, eye pain, visual changes CARDIOVASCULAR: Absent: chest pain, syncope, palpitations, irregular heart rate, lightheadedness , peripheral edema RESPIRATORY: shortness of breath Absent: cough, dyspnea with exertion, orthopnea, wheezing, stridor, hemoptysis GASTROINTESTINAL:abdominal pain Absent: abdominal distension, nausea, vomiting, diarrhea, constipation, melena, hematochezia GENITOURINARY: Absent: dysuria, frequency, urgency, hesitancy, hematuria, flank pain, genital pain MUSCULOSKELETAL: Absent: myalgia, arthralgia, joint swelling, back pain, neck pain SKIN: Absent: rash, itching, pallor HEMATOLOGIC/IMMUNOLOGIC: Absent: easy bleeding, easy bruising, lymphadenopathy, frequent infections ENDOCRINE: Absent: unexplained weight gain, unexplained weight loss, heat intolerance, cold intolerance NEUROLOGIC: Absent: headache, focal weakness or paresthesias, dizziness, unsteady gait, seizure, mental status changes, bladder or bowel incontinence PSYCHIATRIC: Absent: anxiety, depression, suicidal or homicidal ideation, hallucinations. PHYSICAL EXAMINATION Last Vital Signs Temp Pulse Resp BP Pulse Ox 99.7 F H 87 20 140/85 90 L 11/24/16 10:07 11/24/16 09:36 11/24/16 09:36 11/24/16 09:36 11/24/16 09:36 GENERAL: Awake, alert, and fully oriented, in no acute distress. EYES: sclera anicteric, conjunctiva clear. LUNGS: bilateral rhonchi HEART: RRR, normal S1 and S2 without murmur, rub or gallop. ABDOMEN: Soft, RUQ tenderness upon palpation, not distended, normoactive bowel sounds, no guarding, no rebound, no masses. EXTREMITIES: No peripheral edema. CBCD WBC 7.7 K/mm3 (4.0-10.0) 11/24/16 09:30 RBC 3.06 M/mm3 (4.00-5.60) L 11/24/16 09:30 Hgb 10.1 GM/dL (11.7-16.9) L D 11/24/16 09:30 Hct 29.9 % (35.4-49) L 11/24/16 09:30 MCV 97.7 fl (80-96) H 11/24/16 09:30 MCHC 33.7 g/dl (32.0-35.9) 11/24/16 09:30 RDW 17.1 % (11.9-15.9) H 11/24/16 09:30 Plt Count 112 K/MM3 (134-434) L D 11/24/16 09:30 MPV 9.0 fl (7.5-11.1) 11/24/16 09:30 CMP Sodium 139 mmol/L (136-145) 11/24/16 09:30 Potassium 4.8 mmol/L (3.5-5.1) D 11/24/16 09:30 Chloride 104 mmol/L (98-107) 11/24/16 09:30 Carbon Dioxide 26 mmol/L (21-32) 11/24/16 09:30 Anion Gap 9 (8-16) 11/24/16 09:30 BUN 31 mg/dL (7-18) H 11/24/16 09:30 Creatinine 1.7 mg/dL (0.7-1.3) H D 11/24/16 09:30 Creat Clearance w eGFR 38.23 (>60) 11/24/16 09:30 Calcium 9.3 mg/dL (8.5-10.1) D 11/24/16 09:30 Total Bilirubin 2.9 mg/dL (0.2-1.0) H D 11/24/16 09:30 AST 1107 U/L (15-37) H 11/24/16 09:30 ALT 427 U/L (12-78) H D 11/24/16 09:30 Alkaline Phosphatase 394 U/L (45-117) H D 11/24/16 09:30 Total Protein 6.1 g/dl (6.4-8.2) L D 11/24/16 09:30 Albumin 3.0 g/dl (3.4-5.0) L D 11/24/16 09:30 IMAGING EKG on 11/24: NSR with LBBB, unchanged compared to prior Liver U/S on 11/24: dilated CBD 1.8cm CXR on 11/24: No acute pathology ASSESSMENT/PLAN: 86 yo M h/o choledocholithiasis and cholangitis s/p stent removal admitted to med-surg inpatient service for cholangitis. Acute choledocholithiasis - Likely 2/2 residual stones post stent removal - Cont. empiric levaquin and flagyl - Cont. actigall - Supportive care to optimize for ERCP * NPO * pain control CKD, stage 3 - Stable - Monitor Cr CAD s/p stent - Continue Lipitor Aortic stenosis s/p TAVR - Cont. plavix and asa Renal cell cancer s/p nephrectomy - Stable Hypertension - continue carvedilol BPH - Stable - Cont. finasteride and flomax FEN - IVF 50cc/hr - Monitor lytes - NPO for now Prophylaxis - DVT: SCDs - GI: not indicated Dispo - Awaiting GI evaluation Visit type - Emergency Visit Emergency Visit: Yes ED Registration Date: 11/24/16 Care time: The patient presented to the Emergency Department on the above date and was hospitalized for further evaluation of their emergent condition. - New Patient This patient is new to me today: Yes Date on this admission: 11/24/16 - Critical Care Critical Care patient: No
[2016-11-24] MEDS ORDERED: ONDANSETRON 4 MG/2 ML VIAL IVPB PRN (13:21)
[2016-11-24] MEDS ORDERED: morphine CARPU-JECT 4 MG/1 ML DISP.SYRIN IVPUSH PRN (13:21)
--- NOTE | 2016-11-24 13:25 | PN ---
Teaching Attending Note Name of Resident: Jerome Martin ATTENDING PHYSICIAN STATEMENT I saw and evaluated the patient. I reviewed the resident's note and discussed the case with the resident. I agree with the resident's findings and plan as documented. SUBJECTIVE: This is an 86 year old man with a history of HTN, CAD, OH, cardiac stent, , TAVR, right nephrectomy, BPH, urethral strictures who presents with abdominal pain and vomiting. In 07/2016 he was admitted with sepsis, choledocholithiasis, acute cholangitis. He had ERCP and stone extraction 08/24 and laparoscopic cholecystectomy 08/30. He subsequently had a CBD stent placed. Yesterday, he underwent ERCP with stone removal and stent removal. He was discharged on Actigall, Levaquin, Flagyl, but he did not fill the prescriptions. He says he has been having abdominal pain, nausea and vomiting since the procedure yesterday. Pain is epigastric and RUQ, radiating to his back. He thinks he had fevers. OBJECTIVE: Vital Signs Period Temp Pulse Resp BP Sys/Hinkle Pulse Ox Last 24 Hr 98.9 F-99.7 F 70-87 20-20 134-140/80-85 90-94 HEART: S1S2, RRR LUNGS: Clear ABDOMEN: Soft, non-tender, non-distended, normal BS EXTREMITIES: Trace edema ASSESSMENT AND PLAN: This is an 86 year old man with a history of HTN, CAD, OH, cardiac stent, , TAVR, right nephrectomy, BPH, urethral strictures who presents to the ER with abdominal pain, vomiting and fever which started after CBD removal 11/23. 1. Choledocholithiasis - s/p ERCP, stone removal, CBD stent removal yesterday - NPO - IV fluid - Pain control - Continue Levaquin, Flagyl, Actigall - GI consult 2. CAD, history of OH, stent - Continue Coreg, Lipitor 3. , history of TAVR 4. HTN - Continue Coreg 5. CKD, stage 3 vs stage 4 - Monitor creatinine 6. History of renal cancer, right nephrectomy 7. BPH - Continue Proscar 8. Chronic anemia - Hemoglobin stable
--- NOTE | 2016-11-24 15:11 | CON.GI ---
Consult Consult Specialty:: Gastroenterology Referred by:: Dr Goff Reason for Consultation:: Hematemesis and abdominal pain following ERCP - History of Present Illness Chief Complaint: Abdominal pain and vomiting History of Present Illness: 86M developed abdominal pain and vomiting of blood last evening. He had undergone and ERCP to remove a stent and which required removal of multiple stone fragments yesterday morning. He is jaundiced. He presented with ascending cholangitis leading to sepsis, DIC and renal failure in 08/08. He required temporary dialysis. At that time he was on Plavix so I was only able to do a balloon dilation of his sphincter and stent insertion. At a subsequent ERCP I did a sphincterotomy and repeated balloon sweeping of his common bile duct as his large stones splintered into shreds and stone fragments. When his sphincterotomy began to swell and close I inserted a stent. I removed the stent yesterday and swept out residual stone fragments. The bile duct was very dilated and difficult to assess but I terminated the procedure when I failed to get out any more stone fragments. He had slight bleeding from the mouth after the procedure which was felt to be intubation and ERCP scope induced trauma as no extension of his sphincterotomy was attempted. MRI in 07/09 revealed a fullness in the head of the pancreas and a cyst in the tail of khadijah pancreas with a very dilated CBD with stones. - History Source History Provided By: Patient, Medical Record Limitations to Obtaining History: No Limitations - Past Medical History Cardio/Vascular: Yes: Aortic Stenosis (Post TAVR at [facility] in 2015), CAD (s/p cardiac stent/ PCI 1995), HTN, Hyperlipdemia, Other Gastrointestinal: Yes: Diverticulosis Hepatobiliary: Yes: Cholelithiasis, Choledocholithiasis (ERCP x 3 with stent insertion and removal) Renal/: Yes: Renal Inusuff, Cancer (Renal CA with right nephrectomy), Renal Calculi, Other (urethral stricture s/p cystoscopy, nephrectomy for RCC) - Past Surgical History Past Surgical History: Yes: Nephrectomy (right nephrectomy for cancer 12/08), Stent, Valve Replacement (TAVR) - Alcohol/Substance Use Hx Alcohol Use: No History of Substance Use: reports: None - Smoking History Smoking history: Never smoked Have you smoked in the past 12 months: No - Social History Usual Living Arrangement: With Spouse ADL: Independent 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 Place of : [facility] History of Recent Travel: No Home Medications - Allergies Allergies/Adverse Reactions: Allergies Allergy/AdvReac Type Severity Reaction Status Date / Time No Known Allergies Allergy Verified 11/23/16 11:46 - Home Medications Home Medications: Ambulatory Orders Finasteride 5 mg PO DAILY 05/13/16 Carvedilol [Coreg] 6.25 mg PO BID tablet 10/03/16 Ursodiol 300 mg PO BID capsule 10/03/16 Montelukast Sodium [Singulair] 10 mg PO DAILY tablet 11/07/16 Atorvastatin Calcium 10 mg PO DAILY tablet 11/09/16 Levofloxacin [Levaquin] 500 mg PO DAILY #7 tablet 11/23/16 Metronidazole [Flagyl -] 500 mg PO BID #14 tablet 11/23/16 Tamsulosin HCl [Flomax -] 0.4 mg PO DAILY 11/23/16 Ursodiol [Actigall] 300 mg PO BID #180 capsule 11/23/16 Family Disease History - Family Disease History Family Disease History: Other: Father ( 80's unclear cause), Mother ( 80 's CVA/ME), Brother (1 brother CHF, 1 brother stomach cancer) Review of Systems - Review of Systems Constitutional: reports: Weakness Eyes: reports: No Symptoms HENT: reports: No Symptoms Neck: reports: No Symptoms Cardiovascular: reports: No Symptoms Respiratory: reports: No Symptoms Gastrointestinal: reports: Abdominal Pain, Vomiting, Vomiting Blood Genitourinary: reports: No Symptoms Physical Exam-GI Vital Signs: Vital Signs Temperature 98.9 F 11/24/16 13:13 Pulse Rate 70 11/24/16 13:13 Respiratory Rate 20 11/24/16 13:13 Blood Pressure 134/80 11/24/16 13:13 O2 Sat by Pulse Oximetry (%) 94 L 11/24/16 13:13 CBC,CMP WBC 7.7 K/mm3 (4.0-10.0) 11/24/16 09:30 RBC 3.06 M/mm3 (4.00-5.60) L 11/24/16 09:30 Hgb 10.1 GM/dL (11.7-16.9) L D 11/24/16 09:30 Hct 29.9 % (35.4-49) L 11/24/16 09:30 MCV 97.7 fl (80-96) H 11/24/16 09:30 MCH 32.9 pg (25.7-33.7) D 11/24/16 09:30 MCHC 33.7 g/dl (32.0-35.9) 11/24/16 09:30 RDW 17.1 % (11.9-15.9) H 11/24/16 09:30 Plt Count 112 K/MM3 (134-434) L D 11/24/16 09:30 MPV 9.0 fl (7.5-11.1) 11/24/16 09:30 Neutrophils % 92.0 % (42.8-82.8) H 11/24/16 09:30 Lymphocytes % 3.1 % (8-40) L D 11/24/16 09:30 Monocytes % 4.4 % (3.8-10.2) 11/24/16 09:30 Eosinophils % 0.1 % (0-4.5) 11/24/16 09:30 Basophils % 0.4 % (0-2.0) 11/24/16 09:30 Sodium 139 mmol/L (136-145) 11/24/16 09:30 Potassium 4.8 mmol/L (3.5-5.1) D 11/24/16 09:30 Chloride 104 mmol/L (98-107) 11/24/16 09:30 Carbon Dioxide 26 mmol/L (21-32) 11/24/16 09:30 Anion Gap 9 (8-16) 11/24/16 09:30 BUN 31 mg/dL (7-18) H 11/24/16 09:30 Creatinine 1.7 mg/dL (0.7-1.3) H D 11/24/16 09:30 Creat Clearance w eGFR 38.23 (>60) 11/24/16 09:30 Random Glucose 134 mg/dL (74-106) H D 11/24/16 09:30 Lactic Acid 1.9 mmol/L (0.4-2.0) 11/24/16 09:30 Calcium 9.3 mg/dL (8.5-10.1) D 11/24/16 09:30 Total Bilirubin 2.9 mg/dL (0.2-1.0) H D 11/24/16 09:30 AST 1107 U/L (15-37) H 11/24/16 09:30 ALT 427 U/L (12-78) H D 11/24/16 09:30 Alkaline Phosphatase 394 U/L (45-117) H D 11/24/16 09:30 Creatine Kinase 97 IU/L (39-308) 11/24/16 09:30 Troponin I < 0.02 ng/ml (0.00-0.05) D 11/24/16 09:30 Total Protein 6.1 g/dl (6.4-8.2) L D 11/24/16 09:30 Albumin 3.0 g/dl (3.4-5.0) L D 11/24/16 09:30 Lipase 85 U/L (73-393) 11/24/16 09:30 Current Medications Generic Name Dose Route Start Last Admin Trade Name Freq PRN Reason Stop Dose Admin Atorvastatin Calcium 10 mg 11/25/16 10:00 Lipitor - PO DAILY [facility] Carvedilol 6.25 mg 11/24/16 22:00 Coreg - PO BID [facility] Clopidogrel Bisulfate 75 mg 11/25/16 10:00 Plavix - PO DAILY [facility] Finasteride 5 mg 11/25/16 10:00 Proscar - PO DAILY [facility] Levofloxacin 250 mg 11/25/16 06:00 Levaquin - PO DAILY@0600 [facility] Metronidazole 500 mg 11/24/16 20:00 Flagyl - PO TID [facility] Montelukast Sodium 10 mg 11/25/16 10:00 Singulair - PO DAILY [facility] Morphine Sulfate 2 mg 11/24/16 13:21 Morphine Injection - IVPUSH Q4H PRN PAIN Non-Formulary Medication 300 mg 11/24/16 22:00 Ursodiol PO BID [facility] Non-Formulary Medication 300 mg 11/24/16 22:00 Ursodiol PO BID [facility] Ondansetron HCl 4 mg 11/24/16 13:21 Zofran Injection IVPB Q6H PRN NAUSEA Pantoprazole Sodium 40 mg 11/24/16 13:30 Protonix - PO DAILY [facility] Tamsulosin HCl 0.4 mg 11/25/16 10:00 Flomax - PO DAILY [facility] Tiotropium [place] puff 11/25/16 10:00 Spiriva - IH DAILY [facility] Constitutional: Yes: Calm Eyes: Yes: Sclera Icterus HENT: Yes: Atraumatic Neck: Yes: Supple Cardiovascular: Yes: Regular Rate and Rhythm, Murmur (2/6 YANDY at base) Respiratory: Yes: CTA Bilaterally Gastrointestinal Inspection: Yes: Scars (right flank incision with nontender hernia) ...Auscultate: Yes: Normoactive Bowel Sounds ...Palpate: Yes: Soft, Other (nontender) ...Rectal Exam: Yes: Deferred Labs: INR, PTT INR 1.18 (0.82-1.09) H 11/24/16 09:30 Imaging - Results Ultrasound: Report Reviewed (Radha Polojustin Name: [facility] DEPARTMENT OF RADIOLOGY Phys: Chidi Dow MD : 1930 Age: 86 Sex: M [facility] Acct: [id number] Loc: [address] Exam Date: 11/24/16 Status: [place] [address] Unit Number: [id number] EXAM#: TYPE/EXAM: RESULT: [id number] US/LIVER US Status post biliary stent removal. Right upper quadrant pain. Elevated liver function tests. Right upper abdomen ultrasound. Compared to prior gallbladder ultrasound dated 08/06/2026 The liver is within normal limits in size with a moderately dense echotexture. Status post cholecystectomy. No intrahepatic bile duct dilatation is seen. Dilated common bile duct measuring 1.8 cm in diameter. Right kidney was not visualized. Status post right nephrectomy. Pancreas was not visualized. Visualized portion of the proximal abdominal aorta and inferior vena cava appear unremarkable. Normal flow in the main portal vein. Normal-appearing abdominal aorta. Very limited visualization of the inferior vena cava. IMPRESSION: Status post cholecystectomy. Dilated common bile duct measuring 1.8 cm in diameter. Status post nephrectomy. Nonvisualization of the pancreas. Reported By: Vinayak Rubalcava MD 11/24/16 124 Chidi Dow Technologist : Judith Webb Transcribed Date/Time: 11/24/[address] Security: Vinayak Rubalcava Printed Date/Time: [ rep prt dt last] [ rep prt tm last] By: [ rep prt user last] Signed by: Vinayak Rubalcava Signed on: 24-Nov-2016 12:42) Assessment/Plan I believe that Blane's bleeding has resolved and reflects the intubation and ERCP scope trauma that arose yesterday. His Hb has not changed significantly since his last level. I will empirically start pantoprazole for possible esophageal or gastric mucosal erosions that the ERCPscope can cause. His jaundice and elevated transaminases are worrisome and suggests residual stones and/or fragments causing obstruction. I have discussed the possible need to repeat an ERCP with Blane and his Arlyn and reminded them of the risks of perforation, hemorrhage and pancreatitis. He fortunately has not developed pancreatitis and has not resumed his Plavix. I have started IV antibiotics after a culture was taken in the ER. He did receive antibiotics yesterday.I will order an MRCP to assess whether he has residual stones but will refrain from contrast given that he has a single kidney and azotemia. If bleeding resumes ENT will be consulted. Actigall will be given. Hopefully his jaundice reflects some edema at his previous sphincterotomy which will resolve with time. An underlying pancreatic malignancy cannot be excluded but again the contrast risk preclude using it for imaging. An EUS may need to be considered in the future.
[2016-11-24] MEDS ORDERED: LACTATED RINGERS SOLUTION 1,000 ML IV SCH (16:00)
[2016-11-24] MEDS: PANTOPRAZOLE 40 MG TABLET (FP) PO SCH (17:51)
[2016-11-24] MEDS: METRONIDAZOLE 500 MG PREMIXED 100 ML IVPB SCH (17:51)
[2016-11-24] MEDS ORDERED: metroNIDAZOLE 250 MG TABLET PO SCH (20:00)
[2016-11-24] MEDS: ACLIDINIUM BROMIDE 400 MCG/INH AERO.POWD IH SCH (21:20)
[2016-11-24] MEDS: CARVEDILOL 6.25 MG TABLET (FP) PO SCH (21:20)
[2016-11-24] MEDS: URSODIOL 300 MG CAPSULE PO SCH (21:20)
[2016-11-24] MEDS ORDERED: URSODIOL 300 MG PO SCH (22:00)
[2016-11-25] MEDS: METRONIDAZOLE 500 MG PREMIXED 100 ML IVPB SCH (01:06)
[2016-11-25] MEDS ORDERED: LEVOFLOXACIN 250 MG TABLET (FP) PO SCH (06:00)
[2016-11-25 08:42] LABS: BASOPHIL 0.3 % (0-2.0); MCH 33.4 pg (25.7-33.7); MCHC 34.5 g/dl (32.0-35.9); MEAN CELL VOLUME 96.9 fl (80-96); MEAN PLT VOLUME 9.7 fl (7.5-11.1); NEUTROPHILS 90.4 % (42.8-82.8); PLATELET COUNT 86 K/MM3 (134-434); RDW 16.8 % (11.9-15.9); WHITE BLOOD COUNT 10.1 K/mm3 (4.0-10.0)
[2016-11-25 08:55] LABS: INR 1.36 (0.82-1.09)
[2016-11-25 08:57] LABS: ACTIVATED PTT 30.4 SECONDS (26.9-34.4)
[2016-11-25 09:02] LABS: BILIRUBIN,DIRECT 1.4 mg/dL (0.0-0.2); C-REACTIVE PROTEIN 10.1 MG/DL (0.00-0.3)
[2016-11-25 09:05] LABS: ALBUMIN 2.5 g/dl (3.4-5.0); ANION GAP 10 (8-16); CALCIUM 8.8 mg/dL (8.5-10.1); CO2 25 mmol/L (21-32); CREATININE 1.9 mg/dL (0.7-1.3); GLUCOSE,RANDOM 94 mg/dL (74-106); SGPT/ALT 277 U/L (12-78); TOT PROT 5.2 g/dl (6.4-8.2)
[2016-11-25 09:06] LABS: ALK PHOS 336 U/L (45-117)
[2016-11-25 09:09] LABS: SGOT/AST 438 U/L (15-37)
--- NOTE | 2016-11-25 09:51 | PN ---
Progress Note, Physician Chief Complaint: Appears comfortable NO abd pain - Current Medication List Current Medications: Active Medications Aclidinium [place] (Tudorza -) 1 puff IH BID [facility] Last Admin: 11/24/16 21:20 Dose: 1 puff Atorvastatin Calcium (Lipitor -) 10 mg PO HS [facility] Carvedilol (Coreg -) 6.25 mg PO BID [facility] Last Admin: 11/24/16 21:20 Dose: 6.25 mg Finasteride (Proscar -) 5 mg PO DAILY [facility] Levofloxacin (Levaquin 250 Mg Premixed Ivpb -) 50 mls @ 50 mls/hr IVPB DAILY [facility] Metronidazole (Flagyl 500mg Premixed Ivpb -) 100 mls @ 100 mls/hr IVPB Q8H-IV [facility] Last Admin: 11/25/16 01:06 Dose: 100 mls/hr Lactated Ringer's (Lactated Ringers Solution) 1,000 mls @ 75 mls/hr IV ASDIR [facility] Last Admin: 11/24/16 17:51 Dose: 75 mls/hr Montelukast Sodium (Singulair -) 10 mg PO HS [facility] Morphine Sulfate (Morphine Injection -) 2 mg IVPUSH Q4H PRN PRN Reason: PAIN Pantoprazole Sodium (Protonix -) 40 mg PO DAILY [facility] Last Admin: 11/24/16 17:51 Dose: Not Given Tamsulosin HCl (Flomax -) 0.4 mg PO DAILY@0830 [facility] Ursodiol (Actigal -) 300 mg PO BID [facility] Last Admin: 11/24/16 21:20 Dose: 300 mg - Objective Vital Signs: Vital Signs Temperature 98.4 F 11/25/16 06:00 Pulse Rate 90 11/25/16 06:00 Respiratory Rate 20 11/25/16 06:00 Blood Pressure 99/52 11/25/16 06:00 O2 Sat by Pulse Oximetry (%) 94 L 11/24/16 20:25 Gastrointestinal: Yes: Soft. No: Tenderness Labs: CBC, BMP 11/25/16 07:15 11/25/16 07:15 INR, PTT INR 1.36 (0.82-1.09) H 11/25/16 07:15 Problem List - Problems (1) Acute cholangitis Code(s): K83.0 - CHOLANGITIS (2) Bacteremia due to Gram-negative bacteria Code(s): R78.81 - BACTEREMIA Assessment/Plan Microbiology 11/24/16 10:11 Blood - Peripheral Venous Blood Culture - Preliminary Lactose Fermenting Neg Bacilli 11/24/16 10:11 Blood - Peripheral Venous Blood Culture - Preliminary Lactose Fermenting Neg Bacilli Laboratory Tests 11/25/16 11/25/16 11/25/16 07:15 07:15 07:15 WBC 10.1 H D RBC 2.67 L Hct 25.9 L Plt Count 86 L D Creat Clearance w eGFR 33.62 Random Glucose 94 D Direct Bilirubin 1.4 H D AST 438 H D ALT 277 H D Alkaline Phosphatase 336 H C-Reactive Protein 10.1 H D Assessment Cholangitis gram negative tanvir bacteremia Plan Broaden coverage pending c/s GABBI Ibarra MD
[2016-11-25] MEDS ORDERED: LEVOFLOXACIN 250 MG IVPB 50 ML IVPB SCH (10:00)
[2016-11-25] MEDS ORDERED: CLOPIDOGREL BISULFATE 75 MG TABLET (FP) PO SCH (10:00)
--- NOTE | 2016-11-25 10:30 | CONS ---
DATE OF CONSULTATION: DATE OF DICTATION: 11/25/2016 INFECTIOUS DISEASE CONSULTATION HISTORY OF PRESENT ILLNESS: This is an 86-year-old male whom I am asked to see for evaluation of sepsis, with acute cholangitis and gram-negative bacteremia. The patient has a history of hypertension, coronary artery disease, prior PA (with coronary stents), aortic stenosis (status post TAVR), right nephrectomy, BPH and urethral strictures. He presented with abdominal pain and vomiting, and had had an episode of cholangitis in July 2016. He underwent an ERCP with stone extraction on August 24, laparoscopic cholecystectomy on August 30 and subsequently placement of a common bile duct stent. Yesterday he was seen and had an ERCP, with removal of a stone as well as removal of the stent. He had been discharged on Actigall, Levaquin and metronidazole, but apparently did not fill the prescriptions. He returned now complaining of abdominal pain, nausea, vomiting and subjective fevers, and now has gram-negative rods in the blood. PAST MEDICAL HISTORY: As noted above. CURRENT MEDICATIONS: Include levofloxacin, metronidazole, Tudorza, Coreg, Actigall, Lipitor. ALLERGIES: None known. SOCIAL HISTORY: Nonsmoker. No history of EtOH. FAMILY HISTORY: Reviewed and noncontributory. REVIEW OF SYSTEMS: Reviewed and noncontributory. All systems reviewed. PHYSICAL EXAMINATION: General: He was an alert elderly male in no acute distress. Vital Signs: T-max 99.7, currently 98.4. Pulse 90, blood pressure 100/52, respirations 20. Neck: Supple. Lungs: Clear to percussion and auscultation. Heart: S1, S2. Regular rhythm, without audible murmur. Abdomen: Soft, nontender, without hepatosplenomegaly. Positive bowel sounds. Extremities: Without clubbing, cyanosis or edema. DIAGNOSTIC STUDIES: White count 7.7, hemoglobin 10.1, platelets 112. Alkaline phosphatase 394, AST 1100, ALT 427, bilirubin 2.9. ASSESSMENT: Gram-negative tanvir bacteremia secondary to cholangitis. RECOMMENDATIONS: The patient has been seen by Dr. Parks and has discussed another endoscopic retrograde cholangiopancreatogram with the patient. Antibiotics currently started are levofloxacin and metronidazole. Now with gram-negative tanvir bacteremia and low platelets. An magnetic resonance cholangiopancreatogram has been ordered. We will broaden the coverage to include piperacillin and tazobactam for added gram-negative coverage. Operative note dated November 23 indicates removal of stent and extraction of a stone. CESIA MTZ M.D. [id number]
--- NOTE | 2016-11-25 10:32 | CON.CARD ---
Consult Consult Specialty:: Cardiology Referred by:: Dr. Parks Reason for Consultation:: Cardiac evaluation - History of Present Illness History of Present Illness: Patient is an 86 year old male with underlying history of renal cancer s/p right nephrectomy, hypertension, coronary artery disease s/p PCI/ stent, s/p TAVR (2015 at [facility]) who had ERCP for removal of stent and removal of multiple stones. He had presented with ascending cholangitis which lead to sepsis, DIC and renal failure in July of this year. GI input was noted. Currently , he denies chest pain, shortness of breath or palpitations. He denies paroxysmal nocturnal dyspnea or orthopnea. He denies fever or chills. He denies headache or lightheadedness. Cardiology consultation was called for further evaluation - History Source History Provided By: Patient, Medical Record Limitations to Obtaining History: No Limitations - Past Medical History Cardio/Vascular: Yes: Aortic Stenosis (Post TAVR at [facility] in 2015), CAD (s/p cardiac stent/ PCI 1995), HTN, Hyperlipdemia Gastrointestinal: Yes: Diverticulosis Hepatobiliary: Yes: Cholelithiasis, Choledocholithiasis (ERCP x 3 with stent insertion and removal) Renal/: Yes: Renal Inusuff, Cancer (Renal CA with right nephrectomy), Renal Calculi, Other (urethral stricture s/p cystoscopy, nephrectomy for RCC) - Past Surgical History Past Surgical History: Yes: Nephrectomy (right nephrectomy for cancer 12/08), Stent, Valve Replacement (TAVR) - Alcohol/Substance Use Hx Alcohol Use: No History of Substance Use: reports: None - Smoking History Smoking history: Never smoked Have you smoked in the past 12 months: No - Social History Usual Living Arrangement: With Spouse ADL: Independent 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 History of Recent Travel: No Home Medications - Allergies Allergies/Adverse Reactions: Allergies Allergy/AdvReac Type Severity Reaction Status Date / Time No Known Allergies Allergy Verified 11/23/16 11:46 - Home Medications Home Medications: Ambulatory Orders Finasteride 5 mg PO DAILY 05/13/16 Carvedilol [Coreg] 6.25 mg PO BID tablet 10/03/16 Ursodiol 300 mg PO BID capsule 10/03/16 Montelukast Sodium [Singulair] 10 mg PO DAILY tablet 11/07/16 Atorvastatin Calcium 10 mg PO DAILY tablet 11/09/16 Levofloxacin [Levaquin] 500 mg PO DAILY #7 tablet 11/23/16 Metronidazole [Flagyl -] 500 mg PO BID #14 tablet 11/23/16 Tamsulosin HCl [Flomax -] 0.4 mg PO DAILY 11/23/16 Ursodiol [Actigall] 300 mg PO BID #180 capsule 11/23/16 Family Disease History - Family Disease History Family Disease History: Other: Father ( 80's unclear cause), Mother ( 80 's CVA/[place]), Brother (1 brother CHF, 1 brother stomach cancer) Review of Systems - Review of Systems Constitutional: denies: Chills, Fever Cardiovascular: denies: Chest Pain, Palpitations, Shortness of Breath Respiratory: denies: Cough, Hemoptysis, Orthopnea, PND, SOB, SOB on Exertion Gastrointestinal: denies: Abdominal Pain, Melena, Nausea, Rectal Bleeding, Vomiting Neurological: reports: Weakness. denies: Dizziness, Headache, Seizure, Syncope Vital Signs: Vital Signs Temperature 98.4 F 11/25/16 06:00 Pulse Rate 90 11/25/16 06:00 Respiratory Rate 20 11/25/16 06:00 Blood Pressure 99/52 11/25/16 06:00 O2 Sat by Pulse Oximetry (%) 94 L 11/24/16 20:25 Neck: Yes: Supple Respiratory: Yes: Diminished Gastrointestinal: Yes: Normal Bowel Sounds, Soft. No: Tenderness Cardiovascular: Yes: Regular Rate and Rhythm JVD: No Carotid Bruit: No PMI: Non-Displaced Heart Sounds: Yes: S1, S2 Edema: No - Other Data Labs, Other Data: CBC, BMP 11/25/16 07:15 11/25/16 07:15 INR, PTT INR 1.36 (0.82-1.09) H 11/25/16 07:15 Sinus rhythm with LBBB Imaging - Results Chest X-ray: Report Reviewed (Unremarkable) EKG: Report Reviewed Problem List - Problems (1) Acute cholangitis Code(s): K83.0 - CHOLANGITIS (2) Biliary sepsis Code(s): K83.0 - CHOLANGITIS (3) CAD (coronary artery disease) Code(s): I25.10 - ATHSCL HEART DISEASE OF [place] CORONARY ARTERY W/O ANG PCTRS Qualifiers: Coronary Disease-Associated Artery/Lesion type: unspecified vessel or lesion type [place] vs. transplanted heart: [place] heart Associated angina: without angina Qualified Code(s): I25.10 - Atherosclerotic heart disease of [place] coronary artery without angina pectoris (4) CKD (chronic kidney disease) Code(s): N18.9 - CHRONIC KIDNEY DISEASE, UNSPECIFIED (5) S/P ERCP Code(s): Z98.890 - OTHER SPECIFIED POSTPROCEDURAL STATES (6) Hypertension Code(s): I10 - ESSENTIAL (PRIMARY) HYPERTENSION Qualifiers: Hypertension type: essential hypertension Qualified Code(s): I10 - Essential (primary) hypertension (7) Hypercholesterolemia Code(s): E78.00 - PURE HYPERCHOLESTEROLEMIA, UNSPECIFIED (8) S/P TAVR (transcatheter aortic valve replacement) Code(s): Z95.2 - PRESENCE OF PROSTHETIC HEART VALVE Assessment/Plan 1. Status post ERCP for ascending cholangitis leading to sepsis 2. Post TAVR 3. Coronary artery disease, s/p PCI/stent, angina 4. Hypertension 5. Renal cancer s/p right nephrectomy PLAN: 1. Continue GI recommendation with possible repeat ERCP 2. Continue Carvedilol 3. Continue statin (follow LFTs) 4. Antibiotics Further plans are to follow Juan Hays MD
[2016-11-25] MEDS: ACLIDINIUM BROMIDE 400 MCG/INH AERO.POWD IH SCH ×2 (10:34→22:11)
[2016-11-25] MEDS: FINASTERIDE 5 MG TABLET (FP) PO SCH (10:37)
[2016-11-25] MEDS: PANTOPRAZOLE 40 MG TABLET (FP) PO SCH (10:37)
[2016-11-25] MEDS: TAMSULOSIN HCL 0.4 MG CAP.ER.24H (FP) PO SCH (10:37)
[2016-11-25] MEDS: URSODIOL 300 MG CAPSULE PO SCH ×2 (10:37→21:16)
[2016-11-25] MEDS: CARVEDILOL 6.25 MG TABLET (FP) PO SCH ×2 (10:37→22:32)
--- NOTE | 2016-11-25 11:22 | PN ---
Physical Exam: SUBJECTIVE: Patient seen and examined. Abdominal pain and nausea are better. He had chills overnight. OBJECTIVE: Vital Signs Period Temp Pulse Resp BP Sys/Hinkle Pulse Ox Last 24 Hr 97.7 F-98.9 F 70-91 18-20 97-134/51-80 94-94 GENERAL: The patient is awake, alert, and fully oriented, in no acute distress. LUNGS: Breath sounds equal, clear to auscultation bilaterally, no wheezes, no crackles, no accessory muscle use. HEART: Regular rate and rhythm, S1, S2 without murmur, rub or gallop. ABDOMEN: Soft, nontender, nondistended, normoactive bowel sounds, no guarding, no rebound, no hepatosplenomegaly, no masses. EXTREMITIES: 2+ pulses, warm, well-perfused, no edema. Laboratory Results - last 24 hr 11/25/16 11/25/16 11/25/16 07:15 07:15 07:15 WBC RBC Hgb Hct MCV MCH MCHC RDW Plt Count MPV Neutrophils % Lymphocytes % Monocytes % Eosinophils % Basophils % INR 1.36 H PTT (Actin FS) 30.4 Sodium 140 Potassium 4.5 Chloride 105 Carbon Dioxide 25 Anion Gap 10 BUN 53 H D Creatinine 1.9 H Creat Clearance w eGFR 33.62 Random Glucose 94 D Calcium 8.8 Total Bilirubin 2.0 H D Direct Bilirubin 1.4 H D AST 438 H D ALT 277 H D Alkaline Phosphatase 336 H C-Reactive Protein 10.1 H D Total Protein 5.2 L Albumin 2.5 L Total Amylase 21 L D Lipase 75 11/25/16 07:15 WBC 10.1 H D RBC 2.67 L Hgb 8.9 L D Hct 25.9 L MCV 96.9 H MCH 33.4 MCHC 34.5 RDW 16.8 H Plt Count 86 L D MPV 9.7 Neutrophils % 90.4 H Lymphocytes % 6.2 L D Monocytes % 3.1 L Eosinophils % 0.0 D Basophils % 0.3 INR PTT (Actin FS) Sodium Potassium Chloride Carbon Dioxide Anion Gap BUN Creatinine Creat Clearance w eGFR Random Glucose Calcium Total Bilirubin Direct Bilirubin AST ALT Alkaline Phosphatase C-Reactive Protein Total Protein Albumin Total Amylase Lipase Active Medications Generic Name Dose Route Start Last Admin Trade Name Freq PRN Reason Stop Dose Admin Aclidinium [place] 1 puff 11/24/16 22:00 11/25/16 10:34 Tudorza - IH 1 puff BID SUBHA Administration Atorvastatin Calcium 10 mg 11/25/16 22:00 Lipitor - PO HS SUBHA Carvedilol 6.25 mg 11/24/16 22:00 11/25/16 10:37 Coreg - PO 6.25 mg BID SUBHA Administration Finasteride 5 mg 11/25/16 10:00 11/25/16 10:37 Proscar - PO 5 mg DAILY SUBHA Administration Lactated Ringer's 1,000 mls @ 75 mls/hr 11/24/16 16:00 11/24/16 17:51 Lactated Ringers Solution IV 75 mls/hr ASDIR SUBHA Administration Piperacillin Sod/Tazobactam 50 mls @ 100 mls/hr 11/25/16 15:00 Sod 2.25 gm/ Dextrose IVPB Q6H-IV SUBHA Protocol Montelukast Sodium 10 mg 11/25/16 22:00 Singulair - PO HS SUBHA Morphine Sulfate 2 mg 11/24/16 13:21 Morphine Injection - IVPUSH Q4H PRN PAIN Pantoprazole Sodium 40 mg 11/24/16 13:30 11/25/16 10:37 Protonix - PO 40 mg DAILY SUBHA Administration Tamsulosin HCl 0.4 mg 11/25/16 08:30 11/25/16 10:37 Flomax - PO 0.4 mg DAILY@0830 SUBHA Administration Ursodiol 300 mg 11/24/16 22:00 11/25/16 10:37 Actigal - PO 300 mg BID SUBHA Administration ASSESSMENT/PLAN: This is an 86 year old man with a history of HTN, CAD, MA, cardiac stent, , TAVR, right nephrectomy, BPH, urethral strictures who presents to the ER with abdominal pain, vomiting and fever which started after CBD removal 11/23. 1. Choledocholithiasis with acute cholangitis and gram negative bacteremia - s/p ERCP, stone removal, CBD stent removal 11/23 - LFTs improving - Continue IV fluid - Pain control - Continue Actigall - GI and ID consults appreciated - Antibiotics changed to Zosyn - Follow up blood cultures - MRCP ordered 2. CAD, history of MA, stent - Continue Coreg, Lipitor 3. , history of TAVR 4. HTN - Continue Coreg 5. CKD, stage 3 vs stage 4 - Monitor creatinine 6. History of renal cancer, right nephrectomy 7. BPH - Continue Flomax, Proscar 8. Anemia, microcytic - Monitor hemoglobin - Check iron studies, stool occult blood Visit type - Emergency Visit Emergency Visit: Yes ED Registration Date: 11/24/16 Care time: The patient presented to the Emergency Department on the above date and was hospitalized for further evaluation of their emergent condition. - New Patient This patient is new to me today: No - Critical Care Critical Care patient: No - Discharge Referral Referred to [facility] Med [facility] No
[2016-11-25] MEDS ORDERED: PIPERACILLIN/TAZOBACTAM 2.25 GM VIAL IVPB ONE ×2 (12:06→21:13)
[2016-11-25] MEDS ORDERED: DEXTROSE 5%-WATER - 50 ML IVPB ONE ×2 (12:06→21:13)
--- NOTE | 2016-11-25 12:10 | EKG ---
Test Reason : Blood Pressure : / mmHG Vent. Rate : 068 BPM Atrial Rate : 068 BPM P-R Int : 184 ms QRS Dur : 168 ms QT Int : 482 ms P-R-T Axes : 008 008 131 degrees QTc Int : 512 ms SINUS RHYTHM WITH 1ST DEGREE A-V BLOCK LEFT BUNDLE BRANCH BLOCK ABNORMAL ECG WHEN COMPARED WITH ECG OF 24-NOV-2016 09:36, PREVIOUS ECG HAS UNDETERMINED RHYTHM, NEEDS REVIEW Confirmed by SOPHIE SOTELO MD ([id number]) on 11/25/2016 12:09:42 PM Referred By: Karl VELÁSQUEZ Confirmed By:SOPHIE SOTELO MD
[2016-11-25] MEDS: PIPERACILLIN/TAZOB 2.25 GM 2.25 GM in DEXTROSE 5%-WATER - 50 ML IVPB SCH ×2 (12:20→21:15)
--- NOTE | 2016-11-25 12:38 | PN ---
GI Progress Note Subjective: GI NOte: Feels much better. No further vomiting. Tolerating liquids. LFTs are decreasing but so has the Hb. Has a gram negative growing in his blood. Azotemia worsening. Will consult renal. Dr Ibarra's and Dr Hays's consultations are appreciated. - Objective Vital Signs: Vital Signs Temperature 98.4 F 11/25/16 06:00 Pulse Rate 90 11/25/16 06:00 Respiratory Rate 20 11/25/16 06:00 Blood Pressure 99/52 11/25/16 06:00 O2 Sat by Pulse Oximetry (%) 94 L 11/24/16 20:25 Laboratory Tests 11/24/16 11/25/16 11/25/16 09:30 07:15 07:15 WBC BUN 53 H D Creatinine 1.9 H Total Bilirubin 2.9 H D 2.0 H D Direct Bilirubin 1.4 H D AST 1107 H 438 H D ALT 427 H D 277 H D Alkaline Phosphatase 394 H D 336 H C-Reactive Protein 10.1 H D Total Amylase 21 L D Lipase 75 11/25/16 07:15 WBC 10.1 H D BUN Creatinine Total Bilirubin Direct Bilirubin AST ALT Alkaline Phosphatase C-Reactive Protein Total Amylase Lipase Constitutional: Calm Cardiovascular: Yes: Regular Rate and Rhythm Respiratory: Yes: CTA Bilaterally ...Auscultate: Yes: Normoactive Bowel Sounds ...Palpate: Yes: Soft, Other (nontender) Labs: CBC, BMP 11/25/16 07:15 11/25/16 07:15 INR, PTT INR 1.36 (0.82-1.09) H 11/25/16 07:15 Assessment/Plan Gram negative bacteremia from ascending cholangitis after ERCP manipulation of the CBD. He may have residual CBD stones or debris and may need another ERCP. MRCP is pending. Antibiotics as per Dr Ibarra. Will consult renal. Discussed situation with his .
[2016-11-25 18:54] VITALS: BMI 26.2
--- NOTE | 2016-11-25 18:54 | CON.NEP ---
Consult Consult Specialty:: Nephrology Referred by:: Dr Parks Reason for Consultation:: renal insufficiency - History of Present Illness History of Present Illness: abd pain and vomiting/ jaundice s/p ercp and stent removal and removal of stone fragments noted with azotemia on admit in july 2016 -s/p ascending cholangitis and dilcia requiring HD temporarily his discharge day s creatinine was 2.5 a lab done in september 2016 - 1.9 now he is admitted with creat 1.9 - History Source History Provided By: Patient, Medical Record Limitations to Obtaining History: Physical Impairment (hard of hearing) - Past Medical History Cardio/Vascular: Yes: Aortic Stenosis (Post TAVR at [facility] in 2015), CAD (s/p cardiac stent/ PCI 1995), HTN, Hyperlipdemia, Other Gastrointestinal: Yes: Diverticulosis Hepatobiliary: Yes: Cholelithiasis, Choledocholithiasis (ERCP x 3 with stent insertion and removal) Renal/: Yes: Renal Inusuff, Cancer (Renal CA with right nephrectomy), Renal Calculi, Other (urethral stricture s/p cystoscopy, nephrectomy for RCC) - Past Surgical History Past Surgical History: Yes: Nephrectomy (right nephrectomy for cancer 12/08), Stent, Valve Replacement (TAVR) - Alcohol/Substance Use Hx Alcohol Use: No History of Substance Use: reports: None - Smoking History Smoking history: Never smoked Have you smoked in the past 12 months: No - Social History Usual Living Arrangement: With Spouse ADL: Independent 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 History of Recent Travel: No Home Medications - Allergies Allergies/Adverse Reactions: Allergies Allergy/AdvReac Type Severity Reaction Status Date / Time No Known Allergies Allergy Verified 11/23/16 11:46 - Home Medications Home Medications: Ambulatory Orders Finasteride 5 mg PO DAILY 05/13/16 Carvedilol [Coreg] 6.25 mg PO BID tablet 10/03/16 Ursodiol 300 mg PO BID capsule 10/03/16 Montelukast Sodium [Singulair] 10 mg PO DAILY tablet 11/07/16 Atorvastatin Calcium 10 mg PO DAILY tablet 11/09/16 Levofloxacin [Levaquin] 500 mg PO DAILY #7 tablet 11/23/16 Metronidazole [Flagyl -] 500 mg PO BID #14 tablet 11/23/16 Tamsulosin HCl [Flomax -] 0.4 mg PO DAILY 11/23/16 Ursodiol [Actigall] 300 mg PO BID #180 capsule 11/23/16 Family Disease History - Family Disease History Family Disease History: Other: Father ( 80's unclear cause), Mother ( 80 's CVA/[place]), Brother (1 brother CHF, 1 brother stomach cancer) Review of Systems - Review of Systems Constitutional: reports: No Symptoms, Malaise Eyes: reports: No Symptoms HENT: reports: No Symptoms Neck: reports: No Symptoms Cardiovascular: reports: No Symptoms Respiratory: reports: No Symptoms Gastrointestinal: reports: No Symptoms Genitourinary: reports: No Symptoms Musculoskeletal: reports: No Symptoms Integumentary: reports: No Symptoms Endocrine: reports: No Symptoms Hematology/Lymphatic: reports: No Symptoms Psychiatric: reports: No Symptoms Nephrology Consult - Height Height: 5 ft 9 in - Weight Weight: 178 lb - BMI Body Mass Index (BMI): 26.2 - Lab Results CBC,BMP: CBC, BMP 11/25/16 07:15 11/25/16 07:15 Anion Gap: Anion Gap Anion Gap 10 (8-16) 11/25/16 07:15 - Physical Examination Vital Signs: Vital Signs Temperature 97.8 F 11/25/16 15:44 Pulse Rate 93 H 11/25/16 15:44 Respiratory Rate 20 11/25/16 15:44 Blood Pressure 88/54 11/25/16 15:44 O2 Sat by Pulse Oximetry (%) 94 L 11/25/16 09:00 Constitutional: Yes: Well Nourished, No Distress, Calm Eyes: Yes: WNL, Conjunctiva Clear, EOM Intact, Sclera Icterus HENT: Yes: WNL, Atraumatic, Normocephalic Neck: Yes: WNL, Supple, Trachea Midline Cardiovascular: Yes: WNL, Regular Rate and Rhythm Respiratory: Yes: WNL, Regular, CTA Bilaterally Gastrointestinal: Yes: WNL, Normal Bowel Sounds Musculoskeletal: Yes: WNL Extremities: Yes: WNL Integumentary: Yes: WNL Neurological: Yes: WNL, Alert, Oriented Psychiatric: Yes: WNL, Alert, Oriented Assessment/Plan Acute on chronic renal failure probably prerenal in setting of acute illness and vomiting He is on IVF now which may help his renal function quicker than depending on oral fluids Biliary duct stone didease and probable pancreatic head fullness hemodynamically at risk anemia h/h drop due to IV hydration, r/o post procedure bleeding Plan- agree with IVF strict I and O follow up BMP urine indices
[2016-11-25] MEDS: LACTATED RINGERS SOLUTION 1,000 ML IV SCH (19:15)
[2016-11-25] MEDS: MONTELUKAST NA 10 MG TABLET PO SCH (21:16)
[2016-11-25] MEDS: ATORVASTATIN CA 10 MG TABLET (FP) PO SCH (21:16)
[2016-11-26] MEDS ORDERED: DEXTROSE 5%-WATER - 50 ML IVPB ONE ×3 (01:12→13:48)
[2016-11-26] MEDS ORDERED: PIPERACILLIN/TAZOBACTAM 2.25 GM VIAL IVPB ONE ×4 (01:12→21:36)
[2016-11-26] MEDS: PIPERACILLIN/TAZOB 2.25 GM 2.25 GM in DEXTROSE 5%-WATER - 50 ML IVPB SCH ×4 (02:01→21:46)
[2016-11-26] MEDS: LACTATED RINGERS SOLUTION 1,000 ML IV SCH ×2 (04:00→14:50)
[2016-11-26 07:24] LABS: URINE APPEARANCE CLEAR; URINE BILIRUBIN NEGATIVE (NEGATIVE); URINE BLOOD NEGATIVE (NEGATIVE); URINE COLOR YELLOW; URINE GLUCOSE (UA) NEGATIVE (NEGATIVE); URINE KETONE NEGATIVE (NEGATIVE); URINE LEUK ESTERASE TRACE (NEGATIVE); URINE NITRITE NEGATIVE (NEGATIVE); URINE PROTEIN NEGATIVE (NEGATIVE); URINE UROBILINOGEN NEGATIVE mg/dL (0.2-1.0)
[2016-11-26 07:30] LABS: URINE BACTERIA RARE /hpf (NONE SEEN); URINE MUCUS RARE; URINE WBC 6 /hpf (3-5)
[2016-11-26 08:03] LABS: BASOPHIL 0.6 % (0-2.0); EOSINOPHIL 4.2 % (0-4.5); MCH 33.3 pg (25.7-33.7); MCHC 34.1 g/dl (32.0-35.9); MEAN CELL VOLUME 97.8 fl (80-96); MEAN PLT VOLUME 9.3 fl (7.5-11.1); NEUTROPHILS 81.7 % (42.8-82.8); PLATELET COUNT 67 K/MM3 (134-434); WHITE BLOOD COUNT 4.8 K/mm3 (4.0-10.0)
[2016-11-26 08:32] LABS: ALBUMIN 2.3 g/dl (3.4-5.0); ANION GAP 8 (8-16); BILIRUBIN,DIRECT 0.5 mg/dL (0.0-0.2); BILIRUBIN,TOTAL 1.3 mg/dL (0.2-1.0); C-REACTIVE PROTEIN 6.9 MG/DL (0.00-0.3); CALCIUM 8.4 mg/dL (8.5-10.1); CO2 26 mmol/L (21-32); GLUCOSE,RANDOM 86 mg/dL (74-106)
[2016-11-26 08:34] LABS: TOT PROT 4.6 g/dl (6.4-8.2)
--- NOTE | 2016-11-26 09:25 | PN ---
Progress Note, Physician Chief Complaint: ID Bethany tolerates no issue Looks much better today NO fever chills - Current Medication List Current Medications: Active Medications Aclidinium [place] (Tudorza -) 1 puff IH BID [facility] Last Admin: 11/25/16 22:11 Dose: 1 puff Atorvastatin Calcium (Lipitor -) 10 mg PO HS [facility] Last Admin: 11/25/16 21:16 Dose: 10 mg Carvedilol (Coreg -) 6.25 mg PO BID [facility] Last Admin: 11/25/16 22:32 Dose: Not Given Finasteride (Proscar -) 5 mg PO DAILY [facility] Last Admin: 11/25/16 10:37 Dose: 5 mg Piperacillin Sod/Tazobactam (Sod 2.25 gm/ Dextrose) 50 mls @ 100 mls/hr IVPB Q6H-IV SUBHA PRN Reason: Protocol Last Admin: 11/26/16 02:01 Dose: 100 mls/hr Lactated Ringer's (Lactated Ringers Solution) 1,000 mls @ 125 mls/hr IV ASDIR [facility] Last Admin: 11/26/16 04:00 Dose: 125 mls/hr Montelukast Sodium (Singulair -) 10 mg PO [facility] Last Admin: 11/25/16 21:16 Dose: 10 mg Morphine Sulfate (Morphine Injection -) 2 mg IVPUSH Q4H PRN PRN Reason: PAIN Last Admin: 11/26/16 02:03 Dose: 2 mg Pantoprazole Sodium (Protonix -) 40 mg PO DAILY [facility] Last Admin: 11/25/16 10:37 Dose: 40 mg Tamsulosin HCl (Flomax -) 0.4 mg PO DAILY@0830 [facility] Last Admin: 11/25/16 10:37 Dose: 0.4 mg Ursodiol (Actigal -) 300 mg PO BID [facility] Last Admin: 11/25/16 21:16 Dose: 300 mg - Objective Vital Signs: Vital Signs Temperature 97.5 F L 11/26/16 05:59 Pulse Rate 56 L 11/26/16 05:59 Respiratory Rate 18 11/26/16 05:59 Blood Pressure 104/56 11/26/16 05:59 O2 Sat by Pulse Oximetry (%) 95 11/25/16 21:00 Constitutional: Yes: No Distress Cardiovascular: Yes: S1, S2 Respiratory: Yes: WNL, Regular, CTA Bilaterally Gastrointestinal: Yes: Soft. No: Tenderness Labs: CBC, BMP 11/26/16 07:30 11/26/16 07:30 INR, PTT INR 1.36 (0.82-1.09) H 11/25/16 07:15 Problem List - Problems (1) Acute cholangitis Code(s): K83.0 - CHOLANGITIS (2) Bacteremia due to Gram-negative bacteria Code(s): R78.81 - BACTEREMIA Assessment/Plan Microbiology 11/24/16 10:11 Blood - Peripheral Venous Blood Culture - Preliminary Lactose Fermenting Neg Bacilli 11/24/16 10:11 Blood - Peripheral Venous Blood Culture - Preliminary Lactose Fermenting Neg Bacilli Laboratory Tests 11/25/16 11/26/16 11/26/16 07:15 07:30 07:30 WBC Hgb Hct Plt Count INR 1.36 H BUN 49 H Creatinine 2.0 H Direct Bilirubin 0.5 H D AST 177 H D ALT 157 H D Alkaline Phosphatase 216 H D 11/26/16 07:30 WBC 4.8 D Hgb 7.5 L D Hct 22.0 L D Plt Count 67 L D INR BUN Creatinine Direct Bilirubin AST ALT Alkaline Phosphatase Assessment Cholangitis with Gram negative tanvir bacteremia looks better Plan Continue Zosyn pending final culture For MRCP ERCP Fred SCOTT
[2016-11-26 09:26] LABS: FERRITIN 207.355 ng/ml (16.4-293.9)
[2016-11-26] MEDS: ACLIDINIUM BROMIDE 400 MCG/INH AERO.POWD IH SCH ×2 (11:14→21:47)
[2016-11-26] MEDS: PANTOPRAZOLE 40 MG TABLET (FP) PO SCH (11:14)
[2016-11-26] MEDS: TAMSULOSIN HCL 0.4 MG CAP.ER.24H (FP) PO SCH (11:14)
[2016-11-26] MEDS: FINASTERIDE 5 MG TABLET (FP) PO SCH (11:14)
[2016-11-26] MEDS: URSODIOL 300 MG CAPSULE PO SCH ×2 (11:14→21:46)
[2016-11-26] MEDS: CARVEDILOL 6.25 MG TABLET (FP) PO SCH ×2 (11:14→21:46)
--- NOTE | 2016-11-26 12:08 | PN ---
Progress Note, Physician Chief Complaint: Not in distress History of Present Illness: Patient was seen and examined. Awake and alert. Chart was reviewed Denies chest pain, SOB or palpitations Denies abdominal pain - Current Medication List Current Medications: Active Medications Aclidinium [place] (Tudorza -) 1 puff IH BID [facility] Last Admin: 11/26/16 11:14 Dose: 1 puff Atorvastatin Calcium (Lipitor -) 10 mg PO HS [facility] Last Admin: 11/25/16 21:16 Dose: 10 mg Carvedilol (Coreg -) 6.25 mg PO BID [facility] Last Admin: 11/26/16 11:14 Dose: 6.25 mg Finasteride (Proscar -) 5 mg PO DAILY [facility] Last Admin: 11/26/16 11:14 Dose: 5 mg Piperacillin Sod/Tazobactam (Sod 2.25 gm/ Dextrose) 50 mls @ 100 mls/hr IVPB Q6H-IV SUBHA PRN Reason: Protocol Last Admin: 11/26/16 11:12 Dose: 100 mls/hr Lactated Ringer's (Lactated Ringers Solution) 1,000 mls @ 125 mls/hr IV ASDIR [facility] Last Admin: 11/26/16 04:00 Dose: 125 mls/hr Montelukast Sodium (Singulair -) 10 mg PO HS [facility] Last Admin: 11/25/16 21:16 Dose: 10 mg Morphine Sulfate (Morphine Injection -) 2 mg IVPUSH Q4H PRN PRN Reason: PAIN Last Admin: 11/26/16 02:03 Dose: 2 mg Pantoprazole Sodium (Protonix -) 40 mg PO DAILY [facility] Last Admin: 11/26/16 11:14 Dose: 40 mg Tamsulosin HCl (Flomax -) 0.4 mg PO DAILY@0830 [facility] Last Admin: 11/26/16 11:14 Dose: 0.4 mg Ursodiol (Actigal -) 300 mg PO BID [facility] Last Admin: 11/26/16 11:14 Dose: 300 mg - Objective Vital Signs: Vital Signs Temperature 97.5 F L 11/26/16 05:59 Pulse Rate 72 11/26/16 09:00 Respiratory Rate 18 11/26/16 09:00 Blood Pressure 132/79 11/26/16 09:00 O2 Sat by Pulse Oximetry (%) 95 11/26/16 09:00 Neck: Yes: Supple Cardiovascular: Yes: Regular Rate and Rhythm, S1, S2 Respiratory: Yes: CTA Bilaterally Gastrointestinal: Yes: Normal Bowel Sounds, Soft. No: Tenderness Edema: No Additional Findings/Remarks: - Review of Systems Constitutional: denies: Chills, Fever Cardiovascular: denies: Chest Pain, Palpitations, Shortness of Breath Respiratory: denies: Cough, Hemoptysis, Orthopnea, PND, SOB, SOB on Exertion Gastrointestinal: denies: Abdominal Pain, Melena, Nausea, Rectal Bleeding, Vomiting Neurological: reports: Weakness. denies: Dizziness, Headache, Seizure, Syncope Labs: CBC, BMP 11/26/16 07:30 11/26/16 07:30 INR, PTT INR 1.36 (0.82-1.09) H 11/25/16 07:15 - ....Imaging MRI: Pending (MRCP) Problem List - Problems (1) Acute cholangitis Code(s): K83.0 - CHOLANGITIS (2) Biliary sepsis Code(s): K83.0 - [place] (3) CAD (coronary artery disease) Code(s): I25.10 - ATHSCL HEART DISEASE OF [place] CORONARY ARTERY W/O ANG PCTRS Qualifiers: Coronary Disease-Associated Artery/Lesion type: unspecified vessel or lesion type [place] vs. transplanted heart: [place] heart Associated angina: without angina Qualified Code(s): I25.10 - Atherosclerotic heart disease of [place] coronary artery without angina pectoris (4) CKD (chronic kidney disease) Code(s): N18.9 - CHRONIC KIDNEY DISEASE, UNSPECIFIED (5) S/P ERCP Code(s): Z98.890 - OTHER SPECIFIED POSTPROCEDURAL STATES (6) Hypertension Code(s): I10 - ESSENTIAL (PRIMARY) HYPERTENSION Qualifiers: Hypertension type: essential hypertension Qualified Code(s): I10 - Essential (primary) hypertension (7) Hypercholesterolemia Code(s): E78.00 - PURE HYPERCHOLESTEROLEMIA, UNSPECIFIED (8) S/P TAVR (transcatheter aortic valve replacement) Code(s): Z95.2 - PRESENCE OF PROSTHETIC HEART VALVE Assessment/Plan 1. Status post ERCP for ascending cholangitis leading to sepsis 2. Post TAVR 3. Coronary artery disease, s/p PCI/stent, angina 4. Hypertension 5. Renal cancer s/p right nephrectomy PLAN: 1. Continue GI recommendation with possible repeat ERCP - await official MRCP result 2. Continue Carvedilol 3. Continue statin (follow LFTs) 4. Antibiotics 5. Follow H/H and transfuse PRBC is indicated Further plans are to follow Juan Hays MD
--- NOTE | 2016-11-26 13:29 | PN ---
Physical Exam: SUBJECTIVE: Patient seen and examined. Patient comfortable. He denies abdominal pain, nausea, chills. OBJECTIVE: Vital Signs Period Temp Pulse Resp BP Sys/Hinkle Pulse Ox Last 24 Hr 97.5 F-98.7 F 56-93 18-20 88-132/44-79 95-95 GENERAL: The patient is awake, alert, and fully oriented, in no acute distress. LUNGS: Breath sounds equal, clear to auscultation bilaterally, no wheezes, no crackles, no accessory muscle use. HEART: Regular rate and rhythm, S1, S2 without murmur, rub or gallop. ABDOMEN: Soft, nontender, nondistended, normoactive bowel sounds, no guarding, no rebound, no hepatosplenomegaly, no masses. EXTREMITIES: 2+ pulses, warm, well-perfused, no edema. Laboratory Results - last 24 hr 11/25/16 11/26/16 11/26/16 15:00 05:10 05:10 WBC RBC Hgb Hct MCV MCH MCHC RDW Plt Count MPV Neutrophils % Lymphocytes % Monocytes % Eosinophils % Basophils % Retic Count Sodium Potassium Chloride Carbon Dioxide Anion Gap BUN Creatinine Random Glucose Calcium Ferritin Total Bilirubin Direct Bilirubin AST ALT Alkaline Phosphatase C-Reactive Protein Total Protein Albumin Urine Color Yellow Urine Appearance Clear Urine pH 5.0 Ur Specific [place] 1.015 Urine Protein Negative Urine Glucose (UA) Negative Urine Ketones Negative Urine Blood Negative Urine Nitrite Negative Urine Bilirubin Negative Urine Urobilinogen Negative Ur Leukocyte Esterase Trace Urine RBC None Urine WBC 6 Ur Epithelial Cells Rare Urine Bacteria Rare Urine Mucus Rare Urine Creatinine 72.8 Stool Occult Blood Negative 11/26/16 11/26/16 11/26/16 07:30 07:30 07:30 WBC 4.8 D RBC 2.25 L Hgb 7.5 L D Hct 22.0 L D MCV 97.8 H MCH 33.3 MCHC 34.1 RDW 17.0 H Plt Count 67 L D MPV 9.3 Neutrophils % 81.7 Lymphocytes % 9.8 D Monocytes % 3.7 L Eosinophils % 4.2 D Basophils % 0.6 Retic Count 1.03 Sodium 139 Potassium 4.3 Chloride 105 Carbon Dioxide 26 Anion Gap 8 BUN 49 H Creatinine 2.0 H Random Glucose 86 Calcium 8.4 L Ferritin 207.355 Total Bilirubin 1.3 H D Direct Bilirubin 0.5 H D AST 177 H D ALT 157 H D Alkaline Phosphatase 216 H D C-Reactive Protein 6.9 H D Total Protein 4.6 L Albumin 2.3 L Urine Color Urine Appearance Urine pH Ur Specific [place] Urine Protein Urine Glucose (UA) Urine Ketones Urine Blood Urine Nitrite Urine Bilirubin Urine Urobilinogen Ur Leukocyte Esterase Urine RBC Urine WBC Ur Epithelial Cells Urine Bacteria Urine Mucus Urine Creatinine Stool Occult Blood Active Medications Generic Name Dose Route Start Last Admin Trade Name Freq PRN Reason Stop Dose Admin Aclidinium [place] 1 puff 11/24/16 22:00 11/26/16 11:14 Tudorza - IH 1 puff BID SUBHA Administration Atorvastatin Calcium 10 mg 11/25/16 22:00 11/25/16 21:16 Lipitor - PO 10 mg HS SUBHA Administration Carvedilol 6.25 mg 11/24/16 22:00 11/26/16 11:14 Coreg - PO 6.25 mg BID SUBHA Administration Finasteride 5 mg 11/25/16 10:00 11/26/16 11:14 Proscar - PO 5 mg DAILY SUBHA Administration Piperacillin Sod/Tazobactam 50 mls @ 100 mls/hr 11/25/16 12:00 11/26/16 11:12 Sod 2.25 gm/ Dextrose IVPB 100 mls/hr Q6H-IV SUBHA Administration Protocol Lactated Ringer's 1,000 mls @ 125 mls/hr 11/25/16 12:50 11/26/16 04:00 Lactated Ringers Solution IV 125 mls/hr ASDIR SUBHA Administration Montelukast Sodium 10 mg 11/25/16 22:00 11/25/16 21:16 Singulair - PO 10 mg HS SUBHA Administration Morphine Sulfate 2 mg 11/24/16 13:21 11/26/16 02:03 Morphine Injection - IVPUSH 2 mg Q4H PRN Administration PAIN Pantoprazole Sodium 40 mg 11/24/16 13:30 11/26/16 11:14 Protonix - PO 40 mg DAILY SUBHA Administration Tamsulosin HCl 0.4 mg 11/25/16 08:30 11/26/16 11:14 Flomax - PO 0.4 mg DAILY@0830 SUBHA Administration Ursodiol 300 mg 11/24/16 22:00 11/26/16 11:14 Actigal - PO 300 mg BID SUBHA Administration ASSESSMENT/PLAN: This is an 86 year old man with a history of HTN, CAD, OH, cardiac stent, , TAVR, right nephrectomy, BPH, urethral strictures who presents to the ER with abdominal pain, vomiting and fever which started after CBD removal 11/23. 1. Choledocholithiasis with acute cholangitis and E.coli bacteremia - s/p ERCP, stone removal, CBD stent removal 11/23 - LFTs improving - Continue IV fluid - Pain control - Continue Actigall - GI and ID consults appreciated - Continue Zosyn - MRCP pending 2. Acute kidney injury on stage 3 vs 4 CKD - Nephrology consult appreciated - Continue IV fluid - Continue to monitor BUN, creatinine 3. CAD, history of OH, stent - Continue Coreg, Lipitor 4. , history of TAVR 5. HTN - Continue Coreg 6. History of renal cancer, right nephrectomy 7. BPH - Continue Flomax, Proscar 8. Anemia, macrocytic - Monitor hemoglobin - Ferritin is normal. Iron, TIBC, iron sat, B12, folate, TSH ordered - Stool is negative for occult blood x 2 9. Thrombocytopenia - Monitor platelets Visit type - Emergency Visit Emergency Visit: Yes ED Registration Date: 11/24/16 Care time: The patient presented to the Emergency Department on the above date and was hospitalized for further evaluation of their emergent condition. - New Patient This patient is new to me today: No - Critical Care Critical Care patient: No - Discharge Referral Referred to [facility] Med P.C.: No
--- NOTE | 2016-11-26 15:15 | PN ---
GI Progress Note Subjective: GI NOte: Feels better today, LFTs are improving. Hb has dropped below 8 however and his platelets are plummeting while the INR is rising. He may have recurrent DIC and I have contacted Dr Ellison and asked for her to consult. He did have a black BM yesterday. MRCP was discussed with Dr Taylor. There is so much residual air in the CBD from the ERCP that he cannot exclude residual stones. He advises a CT scan. - Objective Vital Signs: Vital Signs Temperature 98.1 F 11/26/16 14:00 Pulse Rate 62 11/26/16 14:00 Respiratory Rate 17 11/26/16 14:00 Blood Pressure 115/53 11/26/16 14:00 O2 Sat by Pulse Oximetry (%) 95 11/26/16 09:00 Laboratory Tests 11/26/16 11/26/16 11/26/16 07:30 07:30 07:30 WBC 4.8 D Hgb 7.5 L D Hct 22.0 L D Plt Count 67 L D Ferritin 207.355 Total Bilirubin 1.3 H D Direct Bilirubin 0.5 H D AST 177 H D ALT 157 H D Alkaline Phosphatase 216 H D Albumin 2.3 L Constitutional: Calm, Pallor Cardiovascular: Yes: Regular Rate and Rhythm Respiratory: Yes: CTA Bilaterally ...Auscultate: Yes: Normoactive Bowel Sounds ...Palpate: Yes: Soft, Other (nontender) Labs: CBC, BMP 11/26/16 07:30 11/26/16 07:30 INR, PTT INR 1.36 (0.82-1.09) H 11/25/16 07:15 Assessment/Plan Gram negative bacteremia from ascending cholangitis after ERCP manipulation of the CBD. Will order CT to exclude residual CBD stones. He has GI bleeding perhaps from a traumatized sphincterotomy site or an ERCP scope induced erosion. Will transfuse and continue PPI. If bleeding persists will need to do an EGD. Will order studies to exclude DIC and have consulted hematology. Discussed situation with his , Arlyn.
[2016-11-26 16:22] LABS: INR 1.09 (0.82-1.09)
[2016-11-26] MEDS: PANTOPRAZOLE SODIUM 80 MG in SODIUM CHLORIDE 100 ML IVPB SCH (16:38)
--- NOTE | 2016-11-26 17:24 | PN ---
Progress Note (short form) - Note Progress Note: Current Medications Aclidinium [place] (Tudorza -) 1 puff IH BID [facility] Last Admin: 11/26/16 11:14 Dose: 1 puff Atorvastatin Calcium (Lipitor -) 10 mg PO HS [facility] Last Admin: 11/25/16 21:16 Dose: 10 mg Carvedilol (Coreg -) 6.25 mg PO BID [facility] Last Admin: 11/26/16 11:14 Dose: 6.25 mg Finasteride (Proscar -) 5 mg PO DAILY [facility] Last Admin: 11/26/16 11:14 Dose: 5 mg Piperacillin Sod/Tazobactam (Sod 2.25 gm/ Dextrose) 50 mls @ 100 mls/hr IVPB Q6H-IV SUBHA PRN Reason: Protocol Last Admin: 11/26/16 14:48 Dose: 100 mls/hr Lactated Ringer's (Lactated Ringers Solution) 1,000 mls @ 125 mls/hr IV ASDIR [facility] Last Admin: 11/26/16 14:50 Dose: 125 mls/hr Pantoprazole Sodium 80 mg/ (Sodium Chloride) 100 mls @ 10 mls/hr IVPB Q10H SUBHA PRN Reason: 8 MG/HR Last Admin: 11/26/16 16:38 Dose: 10 mls/hr Montelukast Sodium (Singulair -) 10 mg PO HS [facility] Last Admin: 11/25/16 21:16 Dose: 10 mg Morphine Sulfate (Morphine Injection -) 2 mg IVPUSH Q4H PRN PRN Reason: PAIN Last Admin: 11/26/16 02:03 Dose: 2 mg Tamsulosin HCl (Flomax -) 0.4 mg PO DAILY@0830 [facility] Last Admin: 11/26/16 11:14 Dose: 0.4 mg Ursodiol (Actigal -) 300 mg PO BID [facility] Last Admin: 11/26/16 11:14 Dose: 300 mg Last Vital Signs Temp Pulse Resp BP Pulse Ox 98.1 F 62 17 115/53 95 11/26/16 14:00 11/26/16 14:00 11/26/16 14:00 11/26/16 14:00 11/26/16 09:00 Lungs clear Heart RRR Abd soft Ext no edema CBC, BMP 11/26/16 07:30 11/26/16 07:30 IMP- dilcia on chronic prerenal anemia Plan- continue IVF Ringers Lactate f/u cmp in am
--- NOTE | 2016-11-26 17:41 | CONSULT ---
Consult - text type - Consultation Consultation Note: Patient is a 86 year old male with a history of CAD, AL s/p stenting, Valve replacement s/p TVAR, right nephrectomy, BPH, pancreatits, cholecystits, choledocolethiasis who presents with abdominal pain and vomiting. The patient had a cholecystectomy done in August 2016 and a subsequent stenting of his bile duct due to choledocolethiasis. He had stent removal 11/21 and got admitted 11/24 with vomiting He is being treated for cholangitis/G- bacteremia/CRISS currentlt denies any abdominalpain/cough/chills/SOB/fevers - Past Medical History Cancer: Yes (R.KIDNEY, WITH RIGHT NEPHRECTOMY) Cardiac Disorders: Yes (valve disease) COPD: Yes Disorders: Yes (URINARY RETENTION,BPH) HTN: Yes Hypercholesterolemia: Yes - Surgical History Cardiac Surgery: Yes (Angioplasty with stent,AORTIC VALVE SX) - Immunization History Immunization Up to Date: Yes - Psycho/Social/Smoking Cessation Hx Smoking History: Never smoked - Past Medical History Allergies/Adverse Reactions: Allergies Allergy/AdvReac Type Severity Reaction Status Date / Time No Known Allergies Allergy Verified 11/23/16 11:46 Home Medications: Ambulatory Orders Finasteride 5 mg PO DAILY 05/13/16 Carvedilol [Coreg] 6.25 mg PO BID tablet 10/03/16 Ursodiol 300 mg PO BID capsule 10/03/16 Montelukast Sodium [Singulair] 10 mg PO DAILY tablet 11/07/16 Atorvastatin Calcium 10 mg PO DAILY tablet 11/09/16 Levofloxacin [Levaquin] 500 mg PO DAILY #7 tablet 11/23/16 Metronidazole [Flagyl -] 500 mg PO BID #14 tablet 11/23/16 Tamsulosin HCl [Flomax -] 0.4 mg PO DAILY 11/23/16 Ursodiol [Actigall] 300 mg PO BID #180 capsule 11/23/16 - Vital Signs Last Vital Signs Temp Pulse Resp BP Pulse Ox 98.5 F 66 18 110/60 95 11/26/16 18:00 11/26/16 18:00 11/26/16 18:00 11/26/16 18:00 11/26/16 09:00 HEENT: ZAK, EOM Intact Oropharynx: No thrush, No mucositis Cor: RSR, No murmurs, No gallops Lungs: Clear to P&A Abd: Soft, Normal bowel sounds, No organomegaly Ext:No significant edema A/P Patient is a 86 year old male with a history of CAD, AL s/p stenting, Valve replacement s/p TVAR, right nephrectomy, BPH, pancreatits, cholecystits, choledocolethiasis who presents with abdominal pain and vomiting. Being treated for cholangitis/sepsis/CRISS/G- bacteremia--E.coli On zosyn since 11/25 Thrombocytopenia/pancytopenia--baseline low nl platelets, now with worsening suspect worsening due to bacteremia But currently hemodynamically stable and no overt signs of sepsis. Time frame not related to zosyn and clinically not septic Hence suspect further dip in platelet count today due to Dilutional effect from fluids. Drop in all counts noted. INR/fibrinogrn nl making DIC less likely will continue to monitor IV fluids per primary team Discussed with ID team
[2016-11-26] MEDS ORDERED: PT OWN MED DRAWER 7, Y5N ONE (21:36)
[2016-11-26] MEDS: MONTELUKAST NA 10 MG TABLET PO SCH (21:46)
[2016-11-26] MEDS: ATORVASTATIN CA 10 MG TABLET (FP) PO SCH (21:46)
[2016-11-27] MEDS ORDERED: PIPERACILLIN/TAZOBACTAM 2.25 GM VIAL IVPB ONE ×2 (02:16→11:27)
[2016-11-27] MEDS ORDERED: DEXTROSE 5%-WATER - 50 ML IVPB ONE ×2 (02:16→11:27)
[2016-11-27] MEDS ORDERED: PT OWN MED DRAWER 7, Y5N ONE ×2 (02:24→21:55)
[2016-11-27] MEDS: PANTOPRAZOLE SODIUM 80 MG in SODIUM CHLORIDE 100 ML IVPB SCH (03:00)
[2016-11-27] MEDS: PIPERACILLIN/TAZOB 2.25 GM 2.25 GM in DEXTROSE 5%-WATER - 50 ML IVPB SCH ×2 (03:00→11:35)
[2016-11-27 06:07] LABS: SERUM IRON 40 ug/dL (38-169); TOTAL IRON BINDING CAPACITY 147 ug/dL (250-450); UIBC 107 ug/dL (111-343)
[2016-11-27] MEDS: LACTATED RINGERS SOLUTION 1,000 ML IV SCH (06:20)
[2016-11-27 07:53] LABS: BASOPHIL 0.9 % (0-2.0); EOSINOPHIL 6.9 % (0-4.5); MCH 32.8 pg (25.7-33.7); MCHC 34.2 g/dl (32.0-35.9); MEAN CELL VOLUME 95.8 fl (80-96); MEAN PLT VOLUME 9.6 fl (7.5-11.1); NEUTROPHILS 77.7 % (42.8-82.8); PLATELET COUNT 73 K/MM3 (134-434); WHITE BLOOD COUNT 5.4 K/mm3 (4.0-10.0)
[2016-11-27 08:13] LABS: INR 1.06 (0.82-1.09); PROTHROMBIN TIME (PATIENT) 11.7 SEC (9.98-11.88)
[2016-11-27 08:16] LABS: ACTIVATED PTT 31.9 SECONDS (26.9-34.4)
[2016-11-27 08:35] LABS: BILIRUBIN,DIRECT 0.6 mg/dL (0.0-0.2); C-REACTIVE PROTEIN 4.2 MG/DL (0.00-0.3)
--- NOTE | 2016-11-27 08:58 | PN ---
Physical Exam: SUBJECTIVE: Patient seen and examined at bed side. No acute events over night. He denies fever, chills , N/V/D/C. Abdominal CAT w/o contrast is pending. OBJECTIVE: Vital Signs Period Temp Pulse Resp BP Sys/Hinkle Pulse Ox Last 24 Hr 97.7 F-98.5 F 61-72 17-20 108-132/53-79 95-95 GENERAL: The patient is awake, alert, and fully oriented, in no acute distress. HEAD: Normal with no signs of trauma. EYES: PERRL, extraocular movements intact, sclera anicteric, conjunctiva clear. No ptosis. ENT: Ears normal, nares patent, oropharynx clear without exudates, moist mucous membranes. NECK: Trachea midline, full range of motion, supple. LUNGS: Breath sounds equal, clear to auscultation bilaterally, no wheezes, no crackles, no accessory muscle use. HEART: Regular rate and rhythm, S1, S2 without murmur, rub or gallop. ABDOMEN: Soft, nontender, nondistended, normoactive bowel sounds, no guarding, no rebound, no hepatosplenomegaly, no masses. EXTREMITIES: 2+ pulses, warm, well-perfused, no edema. NEUROLOGICAL: Cranial nerves II through XII grossly intact. Normal speech, gait not observed. PSYCH: Normal mood, normal affect. SKIN: Warm, dry, normal turgor, no rashes or lesions noted Laboratory Results - last 24 hr 11/26/16 11/26/16 11/26/16 05:10 07:30 07:30 WBC RBC Hgb Hct MCV MCH MCHC RDW Plt Count MPV Neutrophils % Lymphocytes % Monocytes % Eosinophils % Basophils % Retic Count INR PTT (Actin FS) Fibrinogen Sodium 139 Potassium 4.3 Chloride 105 Carbon Dioxide 26 Anion Gap 8 BUN 49 H Creatinine 2.0 H Random Glucose 86 Calcium 8.4 L Iron 40 TIBC 147 L Iron Saturation 27 Ferritin 207.355 Direct Bilirubin GGT LD Total C-Reactive Protein Urine Color Yellow Urine Appearance Clear Urine pH 5.0 Ur Specific [place] 1.015 Urine Protein Negative Urine Glucose (UA) Negative Urine Ketones Negative Urine Blood Negative Urine Nitrite Negative Urine Bilirubin Negative Urine Urobilinogen Negative Ur Leukocyte Esterase Trace Urine RBC None Urine WBC 6 Ur Epithelial Cells Rare Urine Bacteria Rare Urine Mucus Rare Blood Type Antibody Screen Crossmatch 11/26/16 11/26/16 11/26/16 15:40 15:40 15:40 WBC RBC Hgb Hct MCV MCH MCHC RDW Plt Count MPV Neutrophils % Lymphocytes % Monocytes % Eosinophils % Basophils % Retic Count 1.14 D INR 1.09 PTT (Actin FS) Fibrinogen 317.0 D Sodium Potassium Chloride Carbon Dioxide Anion Gap BUN Creatinine Random Glucose Calcium Iron TIBC Iron Saturation Ferritin Direct Bilirubin GGT LD Total C-Reactive Protein Urine Color Urine Appearance Urine pH Ur Specific [place] Urine Protein Urine Glucose (UA) Urine Ketones Urine Blood Urine Nitrite Urine Bilirubin Urine Urobilinogen Ur Leukocyte Esterase Urine RBC Urine WBC Ur Epithelial Cells Urine Bacteria Urine Mucus Blood Type A POSITIVE Antibody Screen Negative Crossmatch See Detail 11/26/16 11/27/16 11/27/16 15:40 06:00 06:00 WBC 5.4 RBC 2.86 L D Hgb 9.4 L D Hct 27.4 L D MCV 95.8 MCH 32.8 MCHC 34.2 RDW 18.0 H Plt Count 73 L MPV 9.6 Neutrophils % 77.7 Lymphocytes % 10.5 Monocytes % 4.0 Eosinophils % 6.9 H Basophils % 0.9 Retic Count INR PTT (Actin FS) Fibrinogen Sodium 139 Potassium 4.1 Chloride 105 Carbon Dioxide Anion Gap BUN Creatinine Random Glucose Calcium Iron TIBC Iron Saturation Ferritin Direct Bilirubin GGT LD Total 192 C-Reactive Protein Urine Color Urine Appearance Urine pH Ur Specific [place] Urine Protein Urine Glucose (UA) Urine Ketones Urine Blood Urine Nitrite Urine Bilirubin Urine Urobilinogen Ur Leukocyte Esterase Urine RBC Urine WBC Ur Epithelial Cells Urine Bacteria Urine Mucus Blood Type Antibody Screen Crossmatch 11/27/16 11/27/16 11/27/16 06:00 06:00 06:00 WBC RBC Hgb Hct MCV MCH MCHC RDW Plt Count MPV Neutrophils % Lymphocytes % Monocytes % Eosinophils % Basophils % Retic Count INR 1.06 PTT (Actin FS) 31.9 Fibrinogen 313.0 Sodium Potassium Chloride Carbon Dioxide Anion Gap BUN Creatinine Random Glucose Calcium Iron TIBC Iron Saturation Ferritin Direct Bilirubin 0.6 H GGT 93 H LD Total C-Reactive Protein 4.2 H D Urine Color Urine Appearance Urine pH Ur Specific [place] Urine Protein Urine Glucose (UA) Urine Ketones Urine Blood Urine Nitrite Urine Bilirubin Urine Urobilinogen Ur Leukocyte Esterase Urine RBC Urine WBC Ur Epithelial Cells Urine Bacteria Urine Mucus Blood Type Antibody Screen Crossmatch Active Medications Generic Name Dose Route Start Last Admin Trade Name Freq PRN Reason Stop Dose Admin Aclidinium [place] 1 puff 11/24/16 22:00 11/26/16 21:47 Tudorza - IH 1 puff BID SUBHA Administration Atorvastatin [place] 10 mg 11/25/16 22:00 11/26/16 21:46 Lipitor - PO 10 mg HS SUBHA Administration Carvedilol 6.25 mg 11/24/16 22:00 11/26/16 21:46 Coreg - PO 6.25 mg BID SUBHA Administration Finasteride 5 mg 11/25/16 10:00 11/26/16 11:14 Proscar - PO 5 mg DAILY SUBHA Administration Piperacillin Sod/Tazobactam 50 mls @ 100 mls/hr 11/25/16 12:00 11/27/16 03:00 Sod 2.25 gm/ Dextrose IVPB 100 mls/hr Q6H-IV SUBHA Administration Protocol Lactated Ringer's 1,000 mls @ 125 mls/hr 11/25/16 12:50 11/27/16 06:20 Lactated Ringers Solution IV 125 mls/hr ASDIR SUBHA Administration Pantoprazole Sodium 80 mg/ 100 mls @ 10 mls/hr 11/26/16 15:30 11/27/16 03:00 Sodium Chloride IVPB 10 mls/hr Q10H SUBHA Administration 8 MG/HR Montelukast Sodium 10 mg 11/25/16 22:00 11/26/16 21:46 Singulair - PO 10 mg HS SUBHA Administration Morphine Sulfate 2 mg 11/24/16 13:21 11/26/16 02:03 Morphine Injection - IVPUSH 2 mg Q4H PRN Administration PAIN Tamsulosin HCl 0.4 mg 11/25/16 08:30 11/26/16 11:14 Flomax - PO 0.4 mg DAILY@0830 SUBHA Administration Ursodiol 300 mg 11/24/16 22:00 11/26/16 21:46 Actigal - PO 300 mg BID SUBHA Administration ASSESSMENT/PLAN: Patient is 86 Year old white male with H/O choledocholithiasis and cholangitis s /p stent removal presented to Ed with one day history of RUQ abdominal pain and bloody vomiting.admitted to med-surg inpatient service for common bile duct obstruction. #Acute choledocholithiasis with Acute cholangitis and E.choli Bacteremia * Likely 2/2 residual stones post stent removal @11/23 * CBD dilated 1.8 cm * Continue Abx Cefazoline 2 g IvPB - day 3 * Cont. actigall (Ursodiol) 300 mg PO BID SUBHA * Start soft diet * Pain control with Morphine 2 mg PO Q4 Hr PRN * GI consulted , MRCP inconclusive. * F/U CT result : CBD 1.7 cm with Pneumobilia , right flank hernia containing ascitis same to prior CT on 08/09/2016 # Anemia, macrocytic, concerned about GI bleed S/P ERCP * H/H today 8.9 less than yesterday 9.07/19. S/P one unite transfusion * Monitor hemogloglobin * Ferritin is normal. Iron, TIBC, iron sat, B12, folate, TSH ordered # Constipation: * did not move his bowel for 4 days * Start Mirlax daily * F/u Clinically # Odynophagia, S/P ERCP * Immroved * on Chloraseptic * Monitor Clinically * Speach and awallow eval came back normal * Start Soft diet # Thrombocytopenia, likely 2/2 Bacteremia vs HIT * PLT today 72 * Monitor platlets * HIT AB pending * Consult hematology * Stool is negative for occult blood x 2 #Transaminitis , likely 2/2 to CBD obstruction * AST /ALT 1107/427, ALP 304 , total Bili 2.9, today AST/ ALT 53/80 * INR 118, PTT 29.3 * Trend liver enzyme: normal * Monitor clinically * US showed dilated CBD 1.8 with pneumobilia S/P ERCP #vomitting Blood(hematechemesis) likely 2/2 gastric mucosal S/P ERCP , Resolved * Patient had 5 episode of bloody vomiting * improved * Stool ocult negative * Start Protonix 40 mg PO daily * D/C IV fluids * Montitor clinically # 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 plavix and ASA # Renal cell cancer s/p nephrectomy * Stable * single kidney , avoid nephrotoxic including contrast #Hypertension * BP 111/70 today * continue carvedilol 6.25 mg PO BID SUBHA * F/u BP #BPH, chronic * Stable * Continue home meds finasteride 5 mg PO DAILY and flomax 0.4 mg PO DAILY #FEN * F: On NO fluids now * E: Monitor lytes * soft diet #Prophylaxis * DVT: SCDs, due to GI bleed * GI: Protonix 40 mg PO daily Visit type - Emergency Visit Emergency Visit: Yes ED Registration Date: 11/24/16 Care time: The patient presented to the Emergency Department on the above date and was hospitalized for further evaluation of their emergent condition. - New Patient This patient is new to me today: No - Critical Care Critical Care patient: No - Discharge Referral Referred to [facility] Med P.C.: No
[2016-11-27 09:29] LABS: ALBUMIN 2.3 g/dl (3.4-5.0); ALK PHOS 194 U/L (45-117); ANION GAP 10 (8-16); BILIRUBIN,TOTAL 1.2 mg/dL (0.2-1.0); CALCIUM 8.1 mg/dL (8.5-10.1); CO2 24 mmol/L (21-32); CREATININE 1.8 mg/dL (0.7-1.3); GLUCOSE,RANDOM 85 mg/dL (74-106); SGOT/AST 91 U/L (15-37); SGPT/ALT 114 U/L (12-78); TOT PROT 4.8 g/dl (6.4-8.2)
[2016-11-27] MEDS: FINASTERIDE 5 MG TABLET (FP) PO SCH (11:34)
[2016-11-27] MEDS: CARVEDILOL 6.25 MG TABLET (FP) PO SCH ×2 (11:35→22:02)
[2016-11-27] MEDS: TAMSULOSIN HCL 0.4 MG CAP.ER.24H (FP) PO SCH (11:35)
[2016-11-27] MEDS: URSODIOL 300 MG CAPSULE PO SCH ×2 (11:35→22:02)
[2016-11-27] MEDS: ACLIDINIUM BROMIDE 400 MCG/INH AERO.POWD IH SCH ×2 (11:38→22:02)
--- NOTE | 2016-11-27 13:05 | PN ---
Progress Note (short form) - Note Progress Note: doing well no abdominal pain no fevers Vital Signs Period Temp Pulse Resp BP Sys/Hinkle Pulse Ox Last 24 Hr 97.7 F-98.5 F 61-66 17-20 108-130/53-65 95 cor-rrr lungs clear abd soft,nt ext no edema CBC, BMP 11/27/16 06:00 11/27/16 06:00 Microbiology 11/24/16 10:11 Blood - Peripheral Venous Blood Culture - Final Escherichia Coli 11/24/16 10:11 Blood - Peripheral Venous Blood Culture - Final Escherichia Coli blood cultures 11/27 pending a/p cholangitis ecoli bacteremia s/p ERCP INR, platelets improving can switch to cefazolin lfts improving TAVR CKD
[2016-11-27] MEDS ORDERED: PHENOL 177 ML SPRAY BOTTLE MM PRN (13:13)
--- NOTE | 2016-11-27 13:37 | PN ---
Progress Note, Physician History of Present Illness: Pt seen and examined at bedside. He is awake and alert. He denies abdominal pain. - Current Medication List Current Medications: Active Medications Aclidinium [place] (Tudorza -) 1 puff IH BID [facility] Last Admin: 11/27/16 11:38 Dose: 1 puff Atorvastatin Calcium (Lipitor -) 10 mg PO [facility] Last Admin: 11/26/16 21:46 Dose: 10 mg Carvedilol (Coreg -) 6.25 mg PO BID [facility] Last Admin: 11/27/16 11:35 Dose: 6.25 mg Finasteride (Proscar -) 5 mg PO DAILY [facility] Last Admin: 11/27/16 11:34 Dose: 5 mg Pantoprazole Sodium 80 mg/ (Sodium Chloride) 100 mls @ 10 mls/hr IVPB Q10H [facility] PRN Reason: 8 MG/HR Last Admin: 11/27/16 03:00 Dose: 10 mls/hr Cefazolin Sodium 2 gm/ (Dextrose) 50 mls @ 200 mls/hr IVPB BID [facility] Montelukast Sodium (Singulair -) 10 mg PO [facility] Last Admin: 11/26/16 21:46 Dose: 10 mg Phenol/Menthol (Chloraseptic -) 1 spray MM Q6HPO PRN PRN Reason: SORE THROAT Tamsulosin HCl (Flomax -) 0.4 mg PO DAILY@0830 [facility] Last Admin: 11/27/16 11:35 Dose: 0.4 mg Ursodiol (Actigal -) 300 mg PO BID [facility] Last Admin: 11/27/16 11:35 Dose: 300 mg - Objective Vital Signs: Vital Signs Temperature 97.7 F 11/27/16 08:38 Pulse Rate 61 11/27/16 08:38 Respiratory Rate 20 11/27/16 08:38 Blood Pressure 113/53 11/27/16 08:38 O2 Sat by Pulse Oximetry (%) 95 11/26/16 21:00 Constitutional: Yes: Calm Eyes: Yes: Conjunctiva Clear HENT: Yes: Atraumatic Neck: Yes: Supple Cardiovascular: Yes: S1, S2 Respiratory: Yes: CTA Bilaterally Gastrointestinal: Yes: Normal Bowel Sounds, Soft Genitourinary: Yes: Incontinence Musculoskeletal: Yes: WNL Edema: Yes Edema: LLE: Trace, RLE: Trace Neurological: Yes: Oriented Psychiatric: Yes: Oriented Labs: CBC, BMP 11/27/16 06:00 11/27/16 06:00 INR, PTT INR 1.06 (0.82-1.09) 11/27/16 06:00 Fibrinogen 313.0 mg/dL (238-498) 11/27/16 06:00 Problem List - Problems (1) Elevated liver enzymes Code(s): R74.8 - ABNORMAL LEVELS OF OTHER SERUM ENZYMES (2) CAD (coronary artery disease) Code(s): I25.10 - ATHSCL HEART DISEASE OF [place] CORONARY ARTERY W/O ANG PCTRS Qualifiers: Coronary Disease-Associated Artery/Lesion type: unspecified vessel or lesion type [place] vs. transplanted heart: [place] heart Associated angina: without angina Qualified Code(s): I25.10 - Atherosclerotic heart disease of [place] coronary artery without angina pectoris (3) CKD (chronic kidney disease) Code(s): N18.9 - CHRONIC KIDNEY DISEASE, UNSPECIFIED Assessment/Plan Current Medications Generic Name Dose Route Start Last Admin Trade Name Freq PRN Reason Stop Dose Admin Aclidinium [place] 1 puff 11/24/16 22:00 11/27/16 11:38 Tudorza - IH 1 puff BID SUB[facility] Administration Atorvastatin Calcium 10 mg 11/25/16 22:00 11/26/16 21:46 Lipitor - PO 10 mg HS SUBHA Administration Carvedilol 6.25 mg 11/24/16 22:00 11/27/16 11:35 Coreg - PO 6.25 mg BID SUBHA Administration Finasteride 5 mg 11/25/16 10:00 11/27/16 11:34 Proscar - PO 5 mg DAILY SUBHA Administration Pantoprazole Sodium 80 mg/ 100 mls @ 10 mls/hr 11/26/16 15:30 11/27/16 03:00 Sodium Chloride IVPB 10 mls/hr Q10H SUBHA Administration 8 MG/HR Cefazolin Sodium 2 gm/ 50 mls @ 200 mls/hr 11/27/16 22:00 Dextrose IVPB BID SUB[facility] Montelukast Sodium 10 mg 11/25/16 22:00 11/26/16 21:46 Singulair - PO 10 mg HS SUBHA Administration Phenol/Menthol 1 spray 11/27/16 13:13 Chloraseptic - MM Q6HPO PRN SORE THROAT Tamsulosin HCl 0.4 mg 11/25/16 08:30 11/27/16 11:35 Flomax - PO 0.4 mg DAILY@0830 SUBHA Administration Ursodiol 300 mg 11/24/16 22:00 11/27/16 11:35 Actigal - PO 300 mg BID SUB[facility] Administration Impression 1. CKD with stable renal function 2. hx of CRISS in the past 3. choledocholithiasis 4. CAD 5. hx of Renal Cell Cancer s/p nephroectomy 6. aortic stenosis Plan - follow up ct scan - GI follow u - cont current meds - repeat labs in am - renal function is stable - will follow Dr Medina
--- NOTE | 2016-11-27 14:30 | CONSULT ---
Admitting History and Physical - Primary Care Physician PCP: Stacy Gutiérrez - Admission Chief Complaint: "pain on swallowing" History of Present Illness: Patient is 86 Year old white male with H/O choledocholithiasis and cholangitis s /p stent removal presented to Ed with one day history of RUQ abdominal pain and bloody vomiting ,admitted to [facility] inpatient service for common bile duct obstruction. Selected Entries 11/26/16 11/26/16 11/26/16 02:00 05:58 05:59 Breakfast Lunch Supper 50% Temperature 97.8 F 97.5 F L 11/26/16 11/26/16 11/26/16 14:00 18:00 19:00 Breakfast 50% Lunch 50% Supper Temperature 98.1 F 98.5 F 98.1 F 11/26/16 11/27/16 11/27/16 23:00 01:05 01:58 Breakfast Lunch Supper 50% Temperature 98.1 F 98.0 F 11/27/16 11/27/16 05:00 08:38 Breakfast Lunch Supper Temperature 97.7 F 97.7 F Laboratory Tests 11/27/16 06:00 WBC 5.4 Pt with c/o pain on swallowing. Placed on soft diet today. History Source: Patient, Medical Record Limitations to Obtaining History: No Limitations - Past Medical History Cardiovascular: Yes: Aortic Stenosis (Post TAVR at [facility] in 2015), CAD (s/p cardiac stent/ PCI 1995), HTN, Hyperlipdemia Gastrointestinal: Yes: Diverticulosis Hepatobiliary: Yes: Cholelithiasis, Choledocholithiasis (ERCP x 3 with stent insertion and removal) Renal/: Yes: Renal Inusuff, Cancer (Renal CA with right nephrectomy), Renal Calculi, Other (urethral stricture s/p cystoscopy, nephrectomy for RCC) Heme/Onc: Yes: Other (renal cell cancer) - Past Surgical History Past Surgical History: Yes: Nephrectomy (right nephrectomy for cancer 12/08), Stent, Valve Replacement (TAVR) - Smoking History Smoking history: Never smoked Have you smoked in the past 12 months: No - Alcohol/Substance Use Hx Alcohol Use: No History of Substance Use: reports: None - Social History ADL: Independent 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 History of Recent Travel: No History - Admission Reason For Visit: ELEVATED LIVER ENZYMES - General Mental Status: Alert and Oriented, Awake and Alert, Able to Follow Commands Attention: Intact Ability to Follow Directions: Good Head/Neck Control: Good - Hearing Hearing: Impaired, Left Ear, Right Ear Hearing Aide: Yes With Patient: Yes Speech Evaluation - Communication Primary Language: GE[place]GI[place] Communication: Yes: Within Normal Limits - Speech Production Able to Make Needs Known: Yes: WNL Intelligibility: Yes: Mildly Impaired - Speech Characteristics Voice Loudness: Mildly Soft/Quiet Voice Pitch: Yes: Pitch Breaks Voice Phonatory-based Quality: Yes: Dysphonia, Vocal Wetness (intermittent) Articulation: Yes: Imprecise Rate of Speech: Intact - Language/Auditory Comprehension Observation: Comprehends Conversational Speech: Yes (if loud enough), Benefits from Repetiton: Yes, Benefits from Increased Volume of Speech: Yes - Language/Verbal Expression Functional Communication Status: Yes: WNL - Swallow Evaluation/Bedside Assessment Current Nutritional Intake: Soft, Thin Liquids Oral Secretions: Yes: WFL Dentition: Yes: Adequate, Dental Appliance Upper, Dental Appliance Lower Facial Symmetry at Rest: Symmetrical Facial Symmetry on Retraction: Symmetrical Facial Movement: Controlled Against Resistance Opening: Normal Against Resistance Closing: Normal Pucker Lips: Normal Smile: Normal Lingual Movement: Normal, Symmetric Lingual Speed of Movement: Normal Lingual Movement Strgth Against Opposition: Normal Lingual Movement Characteristics: Normal Velopharyngeal Movement: Normal Laryngeal Elevation: WFL Laryngeal Movement: Able to Palpate Rate of Intake: Impulsive (large bites) Labial Seal: WFL Chewing: WFL Oral Prep Time: WFL A-P Transit: WFL Pocketing: None Timing of Swallow: WFL Odynophagia: Pharyngeal (initially c/o pain while swallowing.) Coughing/Throat Clear: No Change in Voice: No Recommendations - Speech Evaluation, Impression/Plan Impression: Initially c/o pain while swallowing.Pt assessed with puree, water and bread with no further c/o of odynophagia. I concur with soft diet. Observe tolerance. - Dysphagia Impressions/Plan Dysphagia Impressions: Ongoing Evaluation *Silent aspiration: cannot be R/O at bedside - Recommendations Diet Consistency: Regular (soft) Liquids: Thin Liquids
--- NOTE | 2016-11-27 14:33 | PN ---
GI Progress Note Subjective: GI NOte: Appetite is good. NO BM overnight. Hb is 9.4 post-transfusion. Discussed CT with Dr Taylor who finds pneumobilia but no obvious CBD stones. His renal function has responded nicely to the transfusion and fluids. The renal , ID and hematology notes are appreciated. Fortunately does not appears to have DIC. - Objective Vital Signs: Vital Signs Temperature 97.7 F 11/27/16 08:38 Pulse Rate 61 11/27/16 08:38 Respiratory Rate 20 11/27/16 09:00 Blood Pressure 113/53 11/27/16 08:38 O2 Sat by Pulse Oximetry (%) 96 11/27/16 09:00 Laboratory Tests 11/27/16 11/27/16 11/27/16 06:00 06:00 06:00 WBC 5.4 Hgb 9.4 L D Plt Count 73 L BUN 39 H D Creatinine 1.8 H Total Bilirubin 1.2 H Direct Bilirubin 0.6 H GGT 93 H AST 91 H D ALT 114 H D Alkaline Phosphatase 194 H C-Reactive Protein 4.2 H D Constitutional: Calm Cardiovascular: Yes: Regular Rate and Rhythm Respiratory: Yes: CTA Bilaterally ...Auscultate: Yes: Normoactive Bowel Sounds ...Palpate: Yes: Soft, Other (nontender) Labs: CBC, BMP 11/27/16 06:00 11/27/16 06:00 INR, PTT INR 1.06 (0.82-1.09) 11/27/16 06:00 Fibrinogen 313.0 mg/dL (238-498) 11/27/16 06:00 Assessment/Plan GI Bleeding appears to have subsided. Will stop pantoprazole infusion. Discussed case with Dr. Boggs who will opine on how many days of IV antibiotics are indicated. is at bedside and was updated.
--- NOTE | 2016-11-27 14:49 | PN ---
Teaching Attending Note Name of Resident: Jerome Martin ATTENDING PHYSICIAN STATEMENT I saw and evaluated the patient. I reviewed the resident's note and discussed the case with the resident. I agree with the resident's findings and plan as documented. SUBJECTIVE:asymptomatic. states his throat feels hoarse since saturday. no dysphagia or odynopahgia. requesting to eat and go home. denies CP, SOB, had loose BM 2 days ago. denies CP, SOB< fever,chills, N/V/ OBJECTIVE: Last Vital Signs Temp Pulse Resp BP Pulse Ox 97.4 F L 65 18 122/61 96 11/27/16 14:00 11/27/16 14:00 11/27/16 14:00 11/27/16 14:00 11/27/16 09:00 General NAD CV S1 S2 RRR no murmur/rub/gallop Lungs CTA B/L no wheezing/rales/rhonchi ABdomen soft NT/ND no rebound or guarding. normoactive BS ASSESSMENT AND PLAN: 86 year old man with a history of HTN, CAD, [place], cardiac stent, , TAVR, right nephrectomy, BPH, urethral strictures who presents to the ER with abdominal pain , vomiting and fever which started after CBD removal 11/23. 1. Choledocholithiasis with acute cholangitis and E.coli bacteremia- s/p ERCP, stone removal, CBD stent removal 11/23. MRCP inconclusive. CT done this am. will advance to clear liquid diet. LFT trending down. received zosyn x3 days and switched to cefazolin today by ID. repeat BCx ordered. ID and GI on board. 2. Acute Hgb drop- concern for GI bleeding as pt has had hx vs spincterectomy. s /p 1 unit PRBC yesterday with good response. no reports of bleeding. iron studies pending 3. Hoarse throat-speech and swallow eval. chloraseptic spray if normal. 4. Acute kidney injury on stage 3 vs 4 CKD- improving. will d/c IVF once tolerating diet. nephrology on board. 5. CAD, history of [place], stent-cont to hold plavix. Continue Coreg, Lipitor 6. , history of TAVR 7. HTN- Continue Coreg 8. History of renal cancer, right nephrectomy 9. BPH- Continue Flomax, Proscar 10. Thrombocytopenia-likley due to bacteremia. HIT pending. hematology consulted. Monitor platelets 11. DVT ppx- SCD due to GI bleed.
[2016-11-27 17:58] LABS: MCH 32.9 pg (25.7-33.7); MCHC 34.5 g/dl (32.0-35.9); MEAN CELL VOLUME 95.2 fl (80-96); MEAN PLT VOLUME 9.9 fl (7.5-11.1); PLATELET COUNT 82 K/MM3 (134-434); RDW 17.7 % (11.9-15.9); WHITE BLOOD COUNT 4.9 K/mm3 (4.0-10.0)
[2016-11-27] MEDS: ATORVASTATIN CA 10 MG TABLET (FP) PO SCH (22:02)
[2016-11-27] MEDS: PANTOPRAZOLE 40 MG TABLET (FP) PO SCH (22:02)
[2016-11-27] MEDS: MONTELUKAST NA 10 MG TABLET PO SCH (22:02)
[2016-11-27] MEDS: CEFAZOLIN 2 GM/D5W 50 ML IVPB SCH (22:03)
--- NOTE | 2016-11-27 22:24 | PN ---
Progress Note, Physician Chief Complaint: Not in distress Feels better History of Present Illness: Patient was seen and examined. Awake and alert. Chart was reviewed Denies chest pain, SOB or palpitations Denies abdominal pain - Current Medication List Current Medications: Active Medications Aclidinium [place] (Tudorza -) 1 puff IH BID [facility] Last Admin: 11/27/16 22:02 Dose: 1 puff Atorvastatin Calcium (Lipitor -) 10 mg PO HS [facility] Last Admin: 11/27/16 22:02 Dose: 10 mg Carvedilol (Coreg -) 6.25 mg PO BID [facility] Last Admin: 11/27/16 22:02 Dose: 6.25 mg Finasteride (Proscar -) 5 mg PO DAILY [facility] Last Admin: 11/27/16 11:34 Dose: 5 mg Cefazolin Sodium/Dextrose (Ancef 2 Gm Premixed Ivpb -) 50 mls @ 200 mls/hr IVPB BID [facility] Last Admin: 11/27/16 22:03 Dose: 200 mls/hr Montelukast Sodium (Singulair -) 10 mg PO HS [facility] Last Admin: 11/27/16 22:02 Dose: 10 mg Pantoprazole Sodium (Protonix -) 40 mg PO BID [facility] Last Admin: 11/27/16 22:02 Dose: 40 mg Phenol/Menthol (Chloraseptic -) 1 spray MM Q6HPO PRN PRN Reason: SORE THROAT Tamsulosin HCl (Flomax -) 0.4 mg PO DAILY@0830 [facility] Last Admin: 11/27/16 11:35 Dose: 0.4 mg Ursodiol (Actigal -) 300 mg PO BID [facility] Last Admin: 11/27/16 22:02 Dose: 300 mg - Objective Vital Signs: Vital Signs Temperature 97.4 F L 11/27/16 14:00 Pulse Rate 65 11/27/16 14:00 Respiratory Rate 18 11/27/16 14:00 Blood Pressure 122/61 11/27/16 14:00 O2 Sat by Pulse Oximetry (%) 96 11/27/16 09:00 Neck: Yes: Supple Cardiovascular: Yes: Regular Rate and Rhythm, S1, S2 Respiratory: Yes: CTA Bilaterally Gastrointestinal: Yes: Normal Bowel Sounds, Soft. No: Tenderness Edema: No Labs: CBC, BMP 11/27/16 17:25 11/27/16 06:00 INR, PTT INR 1.06 (0.82-1.09) 11/27/16 06:00 Fibrinogen 313.0 mg/dL (238-498) 11/27/16 06:00 Problem List - Problems (1) Acute cholangitis Code(s): K83.0 - CHOLANGITIS (2) Biliary sepsis Code(s): K83.0 - CHOLANGITIS (3) CAD (coronary artery disease) Code(s): I25.10 - ATHSCL HEART DISEASE OF [place] CORONARY ARTERY W/O ANG PCTRS Qualifiers: Coronary Disease-Associated Artery/Lesion type: unspecified vessel or lesion type [place] vs. transplanted heart: [place] heart Associated angina: without angina Qualified Code(s): I25.10 - Atherosclerotic heart disease of [place] coronary artery without angina pectoris (4) CKD (chronic kidney disease) Code(s): N18.9 - CHRONIC KIDNEY DISEASE, UNSPECIFIED (5) S/P ERCP Code(s): Z98.890 - OTHER SPECIFIED POSTPROCEDURAL STATES (6) Hypertension Code(s): I10 - ESSENTIAL (PRIMARY) HYPERTENSION Qualifiers: Hypertension type: essential hypertension Qualified Code(s): I10 - Essential (primary) hypertension (7) Hypercholesterolemia Code(s): E78.00 - PURE HYPERCHOLESTEROLEMIA, UNSPECIFIED (8) S/P TAVR (transcatheter aortic valve replacement) Code(s): Z95.2 - PRESENCE OF PROSTHETIC HEART VALVE Assessment/Plan 1. Status post ERCP for ascending cholangitis leading to sepsis 2. Post TAVR 3. Coronary artery disease, s/p PCI/stent, angina 4. Hypertension 5. Renal cancer s/p right nephrectomy PLAN: 1. Continue GI recommendation 2. Continue Carvedilol 3. Continue statin and follow LFTs 4. Antibiotics as per ID in terms of duration of therapy 5. Follow H/H and transfuse PRBC is indicated Further plans are to follow Juan Hays MD
[2016-11-28] MEDS: TAMSULOSIN HCL 0.4 MG CAP.ER.24H (FP) PO SCH (08:27)
--- NOTE | 2016-11-28 08:39 | PN ---
Progress Note (short form) - Note Progress Note: ID Cefazolin for E Coli bacteremia 11/24 sensitive organism Selected Entries 11/28/16 06:00 Temperature 97.6 F Pulse Rate 80 Respiratory 20 Rate Blood Pressure 111/70 Microbiology 11/24/16 10:11 Blood - Peripheral Venous Blood Culture - Final Escherichia Coli 11/24/16 10:11 Blood - Peripheral Venous Blood Culture - Final Escherichia Coli Laboratory Tests 11/27/16 11/27/16 11/27/16 06:00 06:00 17:25 WBC 4.9 Hgb 9.4 L Plt Count 82 L BUN 39 H D Creatinine 1.8 H Creat Clearance w eGFR 35.79 Direct Bilirubin 0.6 H AST 91 H D ALT 114 H D Alkaline Phosphatase 194 H Assessment E Coli bacteremia 11/24 No day 4 Given the valve ( TAVR) I would treat him total of 7 days IV as organism resistant to quinolone and cannot given him Bactrim. Do not feel he need oral antibiotic to go home with. Problem List - Problems (1) Acute cholangitis Code(s): K83.0 - CHOLANGITIS (2) Bacteremia due to Gram-negative bacteria Code(s): R78.81 - BACTEREMIA
[2016-11-28 09:07] LABS: MCH 32.9 pg (25.7-33.7); MCHC 34.2 g/dl (32.0-35.9); MEAN CELL VOLUME 96.3 fl (80-96); MEAN PLT VOLUME 9.5 fl (7.5-11.1); PLATELET COUNT 72 K/MM3 (134-434); RDW 17.4 % (11.9-15.9); WHITE BLOOD COUNT 4.7 K/mm3 (4.0-10.0)
[2016-11-28 09:32] LABS: ALBUMIN 2.4 g/dl (3.4-5.0); ALK PHOS 168 U/L (45-117); ANION GAP 9 (8-16); BILIRUBIN,DIRECT 0.4 mg/dL (0.0-0.2); BILIRUBIN,TOTAL 0.7 mg/dL (0.2-1.0); CALCIUM 7.9 mg/dL (8.5-10.1); CO2 25 mmol/L (21-32); CREATININE 1.9 mg/dL (0.7-1.3); GLUCOSE,RANDOM 74 mg/dL (74-106); SGOT/AST 53 U/L (15-37); SGPT/ALT 80 U/L (12-78); TOT PROT 4.9 g/dl (6.4-8.2)
[2016-11-28] MEDS: CARVEDILOL 6.25 MG TABLET (FP) PO SCH ×2 (09:41→21:18)
[2016-11-28] MEDS: FINASTERIDE 5 MG TABLET (FP) PO SCH (09:41)
[2016-11-28] MEDS: URSODIOL 300 MG CAPSULE PO SCH ×2 (09:41→21:15)
[2016-11-28] MEDS: CEFAZOLIN 2 GM/D5W 50 ML IVPB SCH ×2 (09:41→21:18)
[2016-11-28] MEDS: PANTOPRAZOLE 40 MG TABLET (FP) PO SCH ×2 (09:41→21:15)
[2016-11-28] MEDS: ACLIDINIUM BROMIDE 400 MCG/INH AERO.POWD IH SCH ×2 (09:42→21:18)
--- NOTE | 2016-11-28 10:09 | PN ---
Progress Note, Physician Chief Complaint: Not in distress Feels better History of Present Illness: Patient was seen and examined. Awake and alert. Chart was reviewed Denies chest pain, SOB or palpitations Denies abdominal pain - Current Medication List Current Medications: Active Medications Aclidinium [place] (Tudorza -) 1 puff IH BID [facility] Last Admin: 11/28/16 09:42 Dose: 1 puff Atorvastatin Calcium (Lipitor -) 10 mg PO HS [facility] Last Admin: 11/27/16 22:02 Dose: 10 mg Carvedilol (Coreg -) 6.25 mg PO BID [facility] Last Admin: 11/28/16 09:41 Dose: 6.25 mg Finasteride (Proscar -) 5 mg PO DAILY [facility] Last Admin: 11/28/16 09:41 Dose: 5 mg Cefazolin Sodium/Dextrose (Ancef 2 Gm Premixed Ivpb -) 50 mls @ 200 mls/hr IVPB BID [facility] Last Admin: 11/28/16 09:41 Dose: 200 mls/hr Montelukast Sodium (Singulair -) 10 mg PO [facility] Last Admin: 11/27/16 22:02 Dose: 10 mg Pantoprazole Sodium (Protonix -) 40 mg PO BID [facility] Last Admin: 11/28/16 09:41 Dose: 40 mg Phenol/Menthol (Chloraseptic -) 1 spray MM Q6HPO PRN PRN Reason: SORE THROAT Tamsulosin HCl (Flomax -) 0.4 mg PO DAILY@0830 [facility] Last Admin: 11/28/16 08:27 Dose: 0.4 mg Ursodiol (Actigal -) 300 mg PO BID [facility] Last Admin: 11/28/16 09:41 Dose: 300 mg - Objective Vital Signs: Vital Signs Temperature 98.0 F 11/28/16 08:44 Pulse Rate 74 11/28/16 08:44 Respiratory Rate 20 11/28/16 08:44 Blood Pressure 123/69 11/28/16 08:44 O2 Sat by Pulse Oximetry (%) 96 11/27/16 21:00 Cardiovascular: Yes: Regular Rate and Rhythm, S1, S2 Respiratory: Yes: CTA Bilaterally Gastrointestinal: Yes: Normal Bowel Sounds, Soft. No: Tenderness Edema: No Labs: CBC, BMP 11/28/16 08:00 11/28/16 08:00 INR, PTT INR 1.06 (0.82-1.09) 11/27/16 06:00 Fibrinogen 313.0 mg/dL (238-498) 11/27/16 06:00 Problem List - Problems (1) Acute cholangitis Code(s): K83.0 - CHOLANGITIS (2) Biliary sepsis Code(s): K83.0 - [place]OLANGITIS (3) CAD (coronary artery disease) Code(s): I25.10 - ATHSCL HEART DISEASE OF [place] CORONARY ARTERY W/O ANG PCTRS Qualifiers: Coronary Disease-Associated Artery/Lesion type: unspecified vessel or lesion type [place] vs. transplanted heart: [place] heart Associated angina: without angina Qualified Code(s): I25.10 - Atherosclerotic heart disease of [place] coronary artery without angina pectoris (4) CKD (chronic kidney disease) Code(s): N18.9 - CHRONIC KIDNEY DISEASE, UNSPECIFIED (5) S/P ERCP Code(s): Z98.890 - OTHER SPECIFIED POSTPROCEDURAL STATES (6) Hypertension Code(s): I10 - ESSENTIAL (PRIMARY) HYPERTENSION Qualifiers: Hypertension type: essential hypertension Qualified Code(s): I10 - Essential (primary) hypertension (7) Hypercholesterolemia Code(s): E78.00 - PURE HYPERCHOLESTEROLEMIA, UNSPECIFIED (8) S/P TAVR (transcatheter aortic valve replacement) Code(s): Z95.2 - PRESENCE OF PROSTHETIC HEART VALVE Assessment/Plan 1. Status post ERCP for ascending cholangitis leading to sepsis 2. Post TAVR 3. Coronary artery disease, s/p PCI/stent, angina 4. Hypertension 5. Renal cancer s/p right nephrectomy PLAN: 1. Continue GI recommendation 2. Continue Carvedilol 3. Continue statin and follow LFTs 4. Antibiotics as per ID in terms of duration of therapy. ID input noted 5. Follow H/H and transfuse PRBC is indicated Further plans are to follow Juan Hays MD
--- NOTE | 2016-11-28 12:21 | PN ---
GI Progress Note Subjective: GI NOte: Que tells me that he had a brown BM overnight but I cannot confirm this. His Hb has dwindled a bit. Discussed case with Dr Ibarra. Que will complete 7 days of antibiotics on 12/01. LFTS continue to normalize. Eating well. - Objective Vital Signs: Vital Signs Temperature 98.0 F 11/28/16 08:44 Pulse Rate 74 11/28/16 08:44 Respiratory Rate 20 11/28/16 08:44 Blood Pressure 123/69 11/28/16 08:44 O2 Sat by Pulse Oximetry (%) 96 11/27/16 21:00 Laboratory Tests 11/27/16 11/27/16 11/27/16 06:00 06:00 06:00 Hgb Plt Count INR 1.06 BUN Creatinine Total Bilirubin 1.2 H Direct Bilirubin GGT 93 H AST ALT Alkaline Phosphatase 11/27/16 11/28/16 11/28/16 17:25 08:00 08:00 Hgb 9.4 L 8.9 L Plt Count 72 L INR BUN 33 H Creatinine 1.9 H Total Bilirubin 0.7 D Direct Bilirubin 0.4 H D GGT AST 53 H D ALT 80 H D Alkaline Phosphatase 168 H Constitutional: Calm ...Auscultate: Yes: Normoactive Bowel Sounds ...Palpate: Yes: Soft, Other (nontender) Labs: CBC, BMP 11/28/16 08:00 11/28/16 08:00 INR, PTT INR 1.06 (0.82-1.09) 11/27/16 06:00 Fibrinogen 313.0 mg/dL (238-498) 11/27/16 06:00 Assessment/Plan Continue Kefzol IVPB until 12/01/16. Follow CBC and LFTs until then. Renal function stablilizing.
--- NOTE | 2016-11-28 13:27 | PN ---
Progress Note, Physician History of Present Illness: Pt seen and examined at bedside. He is awake and alert. He denies abdominal pain. - Current Medication List Current Medications: Active Medications Aclidinium [place] (Tudorza -) 1 puff IH BID [facility] Last Admin: 11/28/16 09:42 Dose: 1 puff Atorvastatin Calcium (Lipitor -) 10 mg PO HS [facility] Last Admin: 11/27/16 22:02 Dose: 10 mg Carvedilol (Coreg -) 6.25 mg PO BID [facility] Last Admin: 11/28/16 09:41 Dose: 6.25 mg Finasteride (Proscar -) 5 mg PO DAILY [facility] Last Admin: 11/28/16 09:41 Dose: 5 mg Cefazolin Sodium/Dextrose (Ancef 2 Gm Premixed Ivpb -) 50 mls @ 200 mls/hr IVPB BID [facility] Last Admin: 11/28/16 09:41 Dose: 200 mls/hr Montelukast Sodium (Singulair -) 10 mg PO HS [facility] Last Admin: 11/27/16 22:02 Dose: 10 mg Pantoprazole Sodium (Protonix -) 40 mg PO BID [facility] Last Admin: 11/28/16 09:41 Dose: 40 mg Phenol/Menthol (Chloraseptic -) 1 spray MM Q6HPO PRN PRN Reason: SORE THROAT Tamsulosin HCl (Flomax -) 0.4 mg PO DAILY@0830 [facility] Last Admin: 11/28/16 08:27 Dose: 0.4 mg Ursodiol (Actigal -) 300 mg PO BID [facility] Last Admin: 11/28/16 09:41 Dose: 300 mg - Objective Vital Signs: Vital Signs Temperature 98.0 F 11/28/16 08:44 Pulse Rate 74 11/28/16 08:44 Respiratory Rate 20 11/28/16 08:44 Blood Pressure 123/69 11/28/16 08:44 O2 Sat by Pulse Oximetry (%) 96 11/27/16 21:00 Constitutional: Yes: Calm Eyes: Yes: Conjunctiva Clear HENT: Yes: Atraumatic Neck: Yes: Supple Cardiovascular: Yes: S1, S2 Respiratory: Yes: CTA Bilaterally Gastrointestinal: Yes: Normal Bowel Sounds, Soft Genitourinary: Yes: WNL Musculoskeletal: Yes: WNL Edema: No Neurological: Yes: Oriented Psychiatric: Yes: Oriented Labs: CBC, BMP 11/28/16 08:00 11/28/16 08:00 INR, PTT INR 1.06 (0.82-1.09) 11/27/16 06:00 Fibrinogen 313.0 mg/dL (238-498) 11/27/16 06:00 Problem List - Problems (1) Elevated liver enzymes Code(s): R74.8 - ABNORMAL LEVELS OF OTHER SERUM ENZYMES (2) CAD (coronary artery disease) Code(s): I25.10 - ATHSCL HEART DISEASE OF [place] CORONARY ARTERY W/O ANG PCTRS Qualifiers: Coronary Disease-Associated Artery/Lesion type: unspecified vessel or lesion type [place] vs. transplanted heart: [place] heart Associated angina: without angina Qualified Code(s): I25.10 - Atherosclerotic heart disease of [place] coronary artery without angina pectoris (3) CKD (chronic kidney disease) Code(s): N18.9 - CHRONIC KIDNEY DISEASE, UNSPECIFIED Assessment/Plan Current Medications Generic Name Dose Route Start Last Admin Trade Name Freq PRN Reason Stop Dose Admin Aclidinium [place] 1 puff 11/24/16 22:00 11/28/16 09:42 Tudorza - IH 1 puff BID SUBHA Administration Atorvastatin Calcium 10 mg 11/25/16 22:00 11/27/16 22:02 Lipitor - PO 10 mg HS SUBHA Administration Carvedilol 6.25 mg 11/24/16 22:00 11/28/16 09:41 Coreg - PO 6.25 mg BID SUBHA Administration Finasteride 5 mg 11/25/16 10:00 11/28/16 09:41 Proscar - PO 5 mg DAILY [facility] Administration Cefazolin Sodium/Dextrose 50 mls @ 200 mls/hr 11/27/16 22:00 11/28/16 09:41 Ancef 2 Gm Premixed Ivpb - IVPB 200 mls/hr BID SUBHA Administration Montelukast Sodium 10 mg 11/25/16 22:00 11/27/16 22:02 Singulair - PO 10 mg HS SUBHA Administration Pantoprazole Sodium 40 mg 11/27/16 22:00 11/28/16 09:41 Protonix - PO 40 mg BID SUBHA Administration Phenol/Menthol 1 spray 11/27/16 13:13 Chloraseptic - MM Q6HPO PRN SORE THROAT Tamsulosin HCl 0.4 mg 11/25/16 08:30 11/28/16 08:27 Flomax - PO 0.4 mg DAILY@0830 SUBHA Administration Ursodiol 300 mg 11/24/16 22:00 11/28/16 09:41 Actigal - PO 300 mg BID SUBHA Administration Impression 1. CKD with stable renal function 2. hx of CRISS in the past 3. choledocholithiasis 4. CAD 5. hx of Renal Cell Cancer s/p nephroectomy 6. aortic stenosis Plan - renal function is stable - cont abx - monitor creatinine - would not give fluids - will evaluate for lasix in am - will follow Dr Medina
--- NOTE | 2016-11-28 13:48 | PN ---
Physical Exam: SUBJECTIVE: Patient seen and examined at bed side.He is doing well, NO acute events over night. odynophagia improved. He denies any N/V/D/C. denies abdominal pain , or urinary symptoms. working well with the physical therapy. asking to go home. OBJECTIVE: Vital Signs Period Temp Pulse Resp BP Sys/Hinkle Pulse Ox Last 24 Hr 97.4 F-98.0 F 62-80 18-20 110-123/60-70 96 GENERAL: The patient is awake, alert, and fully oriented, in no acute distress. HEAD: Normal with no signs of trauma. EYES: PERRL, sclera anicteric, conjunctiva clear. No ptosis. ENT: Ears normal, nares patent, oropharynx clear without exudates, moist mucous membranes. NECK: Trachea midline, full range of motion, supple. LUNGS: Breath sounds equal, clear to auscultation bilaterally, no wheezes, no crackles, no accessory muscle use. HEART: Regular rate and rhythm, S1, S2 , 2/6 systolic murmur,No rub or gallop. ABDOMEN: Soft, nontender, nondistended, normoactive bowel sounds, no guarding, no rebound, no hepatosplenomegaly, no masses. EXTREMITIES: 2+ pulses, warm, well-perfused, no edema. NEUROLOGICAL: Normal speech, gait not observed. PSYCH: Normal mood, normal affect. SKIN: Warm, dry, normal turgor, no rashes or lesions noted Laboratory Results - last 24 hr 11/26/16 11/27/16 11/28/16 15:40 17:25 05:15 WBC 4.9 RBC 2.85 L Hgb 9.4 L Hct 27.2 L MCV 95.2 MCH 32.9 MCHC 34.5 RDW 17.7 H Plt Count 82 L MPV 9.9 Haptoglobin 93 Sodium Potassium Chloride Carbon Dioxide Anion Gap BUN Creatinine Creat Clearance w eGFR Random Glucose Calcium Total Bilirubin Direct Bilirubin AST ALT Alkaline Phosphatase Total Protein Albumin Urine Creatinine 37.0 11/28/16 11/28/16 11/28/16 08:00 08:00 08:00 WBC 4.7 RBC 2.70 L Hgb 8.9 L Hct 26.0 L MCV 96.3 H MCH 32.9 MCHC 34.2 RDW 17.4 H Plt Count 72 L MPV 9.5 Haptoglobin Sodium 140 Cancelled Potassium 4.0 Cancelled Chloride 106 Cancelled Carbon Dioxide 25 Cancelled Anion Gap 9 Cancelled BUN 33 H Cancelled Creatinine 1.9 H Cancelled Creat Clearance w eGFR Cancelled Random Glucose 74 Cancelled Calcium 7.9 L Cancelled Total Bilirubin 0.7 D Cancelled Direct Bilirubin 0.4 H D AST 53 H D Cancelled ALT 80 H D Cancelled Alkaline Phosphatase 168 H Cancelled Total Protein 4.9 L Cancelled Albumin 2.4 L Cancelled Urine Creatinine Active Medications Generic Name Dose Route Start Last Admin Trade Name Freq PRN Reason Stop Dose Admin Aclidinium [place] 1 puff 11/24/16 22:00 11/28/16 09:42 Tudorza - IH 1 puff BID SUBHA Administration Atorvastatin Calcium 10 mg 11/25/16 22:00 11/27/16 22:02 Lipitor - PO 10 mg HS SUBHA Administration Carvedilol 6.25 mg 11/24/16 22:00 11/28/16 09:41 Coreg - PO 6.25 mg BID SUB[facility] Administration Finasteride 5 mg 11/25/16 10:00 11/28/16 09:41 Proscar - PO 5 mg DAILY [facility] Administration Cefazolin Sodium/Dextrose 50 mls @ 200 mls/hr 11/27/16 22:00 11/28/16 09:41 Ancef 2 Gm Premixed Ivpb - IVPB 200 mls/hr BID SUB[facility] Administration Montelukast Sodium 10 mg 11/25/16 22:00 11/27/16 22:02 Singulair - PO 10 mg HS [facility] Administration Pantoprazole Sodium 40 mg 11/27/16 22:00 11/28/16 09:41 Protonix - PO 40 mg BID [facility] Administration Phenol/Menthol 1 spray 11/27/16 13:13 Chloraseptic - MM Q6HPO PRN SORE THROAT Tamsulosin HCl 0.4 mg 11/25/16 08:30 11/28/16 08:27 Flomax - PO 0.4 mg DAILY@0830 [facility] Administration Ursodiol 300 mg 11/24/16 22:00 11/28/16 09:41 Actigal - PO 300 mg BID [facility] Administration ASSESSMENT/PLAN: Patient is 86 Year old white male with H/O choledocholithiasis and cholangitis s /p stent removal presented to Ed with one day history of RUQ abdominal pain and bloody vomiting.admitted to med-surg inpatient service for common bile duct obstruction. #Acute choledocholithiasis with Acute cholangitis and E.choli Bacteremia * Likely 2/2 residual stones post stent removal @11/23 * CBD dilated 1.8 cm * Continue Abx Cefazoline 2 g IvPB - day 4 * Cont. actigall (Ursodiol) 300 mg PO BID [facility] * Start soft diet * Pain control with Morphine 2 mg PO Q4 Hr PRN * GI consulted , MRCP inconclusive. * F/U CT result : CBD 1.7 cm with Pneumobilia , right flank hernia containing ascitis same to prior CT on 08/09/2016 # Anemia, macrocytic, concerned about GI bleed S/P ERCP * H/H today 8.12/18 less than yesterday .07/19. S/P one unite transfusion * Monitor hemogloglobin * Ferritin is normal. Iron, TIBC, iron sat, B12, folate, TSH ordered # Constipation: * did not move his bowel for 4 days * Start Mirlax daily * F/u Clinically # Odynophagia, S/P ERCP * Immroved * on Chloraseptic * Monitor Clinically * Speach and awallow eval came back normal * Start Soft diet # Thrombocytopenia, likely 2/2 Bacteremia vs HIT * PLT today 72 * Monitor platlets * HIT AB pending * Consult hematology * * Stool is negative for occult blood x 2 #Transaminitis , likely 2/2 to CBD obstruction * AST /ALT 1107/427, ALP 304 , total Bili 2.9, today AST/ ALT 53/80 * INR 118, PTT 29.3 * Trend liver enzyme: normal * Monitor clinically * US showed dilated CBD 1.8 with pneumobilia S/P ERCP #vomitting Blood(hematechemesis) likely 2/2 gastric mucosal S/P ERCP , Resolved * Patient had 5 episode of bloody vomiting * improved * Stool ocult negative * Start Protonix 40 mg PO daily * D/C IV fluids * Montitor clinically # 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 plavix and ASA # Renal cell cancer s/p nephrectomy * Stable * single kidney , avoid nephrotoxic including contrast #Hypertension * BP 111/70 today * continue carvedilol 6.25 mg PO BID SUBHA * F/u BP #BPH, chronic * Stable * Continue home meds finasteride 5 mg PO DAILY and flomax 0.4 mg PO DAILY #FEN * F: On NO fluids now * E: Monitor lytes * soft diet #Prophylaxis * DVT: SCDs, due to GI bleed * GI: Protonix 40 mg PO daily #Dispo * Will need IV antibiotics total of 7 days per ID Visit type - Emergency Visit Emergency Visit: Yes ED Registration Date: 11/24/16 Care time: The patient presented to the Emergency Department on the above date and was hospitalized for further evaluation of their emergent condition. - New Patient This patient is new to me today: No - Critical Care Critical Care patient: No - Discharge Referral Referred to [facility] No
--- NOTE | 2016-11-28 14:22 | PN ---
Teaching Attending Note Name of Resident: Jerome Martin ATTENDING PHYSICIAN STATEMENT I saw and evaluated the patient. I reviewed the resident's note and discussed the case with the resident. I agree with the resident's findings and plan as documented. SUBJECTIVE:asymptomatic. tolerating diet. reports no dysphagia or odynophagia. OBJECTIVE: General NAD CV S1 S2 RRR no murmur/rub/gallop Lungs CTA B/L no wheezing/rales/rhonchi ABdomen soft NT/ND no rebound or guarding. normoactive BS ASSESSMENT AND PLAN: 86 year old man with a history of HTN, CAD, UT, cardiac stent, , TAVR, right nephrectomy, BPH, urethral strictures who presents to the ER with abdominal pain , vomiting and fever which started after CBD removal 11/23. 1. Choledocholithiasis with acute cholangitis and E.coli bacteremia- s/p ERCP, stone removal, CBD stent removal 11/23. MRCP inconclusive. CT done. advanced to regular diet and tolerating. LFT continue to trend down. repeat Bcx sent yesterday and NGTD. on Cefipime. day 5 of abx therapy. as per ID plan is to complete 7 day course of IV ABx. ID and GI on board. 2. Acute Hgb drop- concern for GI bleeding as pt has had hx vs spincterectomy. s /p 1 unit PRBC this admission. Hgb remains stable. 3. Hoarse throat-now improved. evaluated by swallow pathologist and on soft diet. 4. Acute kidney injury on stage 3 vs 4 CKD- improving. d/c IVF. nephrology on board. 5. CAD, history of UT, stent-cont to hold plavix. Continue Coreg, Lipitor 6. , history of TAVR 7. HTN- Continue Coreg 8. History of renal cancer, right nephrectomy 9. BPH- Continue Flomax, Proscar 10. Thrombocytopenia-likley due to bacteremia. stable. HIT pending. hematology consulted. Monitor platelets 11. DVT ppx- SCD due to GI bleed.
--- NOTE | 2016-11-28 15:05 | PN ---
Progress Note, DOLLYMAN - Note Progress Note: Selected Entries 11/27/16 11/27/16 11/27/16 01:05 01:58 05:00 Breakfast Lunch Supper Temperature 98.1 F 98.0 F 97.7 F 11/27/16 11/27/16 11/27/16 08:38 14:00 20:00 Breakfast NPO Lunch 50% Supper Temperature 97.7 F 97.4 F L 97.4 F L 11/27/16 11/28/16 11/28/16 22:00 06:00 08:44 Breakfast Lunch Supper 50% Temperature 97.6 F 98.0 F 11/28/16 11:55 Breakfast 50% Lunch 75% Supper Temperature Laboratory Tests 11/28/16 08:00 WBC 4.7 Pt is tolerating diet. No further f/u indicated.
[2016-11-28] MEDS ORDERED: POLYETHYLENE GLYCOL 3350 119 GM BTL PO ONE (17:15)
[2016-11-28] MEDS ORDERED: PT OWN MED DRAWER 7, Y5N ONE (20:46)
[2016-11-28] MEDS: MONTELUKAST NA 10 MG TABLET PO SCH (21:15)
[2016-11-28] MEDS: ATORVASTATIN CA 10 MG TABLET (FP) PO SCH (21:15)
[2016-11-29] MEDS: PANTOPRAZOLE SODIUM 80 MG in SODIUM CHLORIDE 100 ML IVPB SCH (07:23)
[2016-11-29 07:34] LABS: BASOPHIL 1.1 % (0-2.0); EOSINOPHIL 6.2 % (0-4.5); MCH 32.9 pg (25.7-33.7); MCHC 34.3 g/dl (32.0-35.9); MEAN CELL VOLUME 95.9 fl (80-96); MEAN PLT VOLUME 9.5 fl (7.5-11.1); NEUTROPHILS 66.2 % (42.8-82.8); PLATELET COUNT 73 K/MM3 (134-434); RDW 17.1 % (11.9-15.9); WHITE BLOOD COUNT 4.8 K/mm3 (4.0-10.0)
[2016-11-29 07:54] LABS: ALBUMIN 2.4 g/dl (3.4-5.0); ANION GAP 7 (8-16); CO2 28 mmol/L (21-32); GLUCOSE,RANDOM 83 mg/dL (74-106); SGOT/AST 32 U/L (15-37); SGPT/ALT 42 U/L (12-78)
[2016-11-29 07:56] LABS: ALK PHOS 145 U/L (45-117); BILIRUBIN,DIRECT 0.3 mg/dL (0.0-0.2); BILIRUBIN,TOTAL 0.6 mg/dL (0.2-1.0); C-REACTIVE PROTEIN 1.6 MG/DL (0.00-0.3); CREATININE 1.7 mg/dL (0.7-1.3); TOT PROT 4.9 g/dl (6.4-8.2)
[2016-11-29] MEDS: TAMSULOSIN HCL 0.4 MG CAP.ER.24H (FP) PO SCH (08:10)
[2016-11-29] MEDS: CARVEDILOL 6.25 MG TABLET (FP) PO SCH ×2 (09:11→21:33)
[2016-11-29] MEDS: FINASTERIDE 5 MG TABLET (FP) PO SCH (09:11)
[2016-11-29] MEDS: URSODIOL 300 MG CAPSULE PO SCH ×2 (09:11→21:32)
[2016-11-29] MEDS: CEFAZOLIN 2 GM/D5W 50 ML IVPB SCH ×2 (09:11→21:32)
[2016-11-29] MEDS: PANTOPRAZOLE 40 MG TABLET (FP) PO SCH ×2 (09:11→21:32)
[2016-11-29] MEDS: ACLIDINIUM BROMIDE 400 MCG/INH AERO.POWD IH SCH ×2 (09:12→21:45)
[2016-11-29] MEDS ORDERED: PT OWN MED DRAWER 7, Y5N ONE (09:12)
[2016-11-29] MEDS ORDERED: DOCUSATE SODIUM 100 MG CAPSULE (FP) PO ONE (09:15)
--- NOTE | 2016-11-29 11:09 | PN ---
Progress Note, Physician Chief Complaint: Not in distress Feels better History of Present Illness: Patient was seen and examined. Awake and alert. Chart was reviewed Denies chest pain, SOB or palpitations Denies abdominal pain - Current Medication List Current Medications: Active Medications Aclidinium [place] (Tudorza -) 1 puff IH BID [facility] Last Admin: 11/29/16 09:12 Dose: 1 puff Atorvastatin Calcium (Lipitor -) 10 mg PO HS [facility] Last Admin: 11/28/16 21:15 Dose: 10 mg Carvedilol (Coreg -) 6.25 mg PO BID [facility] Last Admin: 11/29/16 09:11 Dose: 6.25 mg Finasteride (Proscar -) 5 mg PO DAILY [facility] Last Admin: 11/29/16 09:11 Dose: 5 mg Cefazolin Sodium/Dextrose (Ancef 2 Gm Premixed Ivpb -) 50 mls @ 200 mls/hr IVPB BID [facility] Last Admin: 11/29/16 09:11 Dose: 200 mls/hr Montelukast Sodium (Singulair -) [address] [facility] Last Admin: 11/28/16 21:15 Dose: 10 mg Pantoprazole Sodium (Protonix -) 40 mg PO BID [facility] Last Admin: 11/29/16 09:11 Dose: 40 mg Phenol/Menthol (Chloraseptic -) 1 spray MM Q6HPO PRN PRN Reason: SORE THROAT Tamsulosin HCl (Flomax -) 0.4 mg PO DAILY@0830 [facility] Last Admin: 11/29/16 08:10 Dose: 0.4 mg Ursodiol (Actigal -) 300 mg PO BID [facility] Last Admin: 11/29/16 09:11 Dose: 300 mg - Objective Vital Signs: Vital Signs Temperature 98.4 F 11/29/16 09:29 Pulse Rate 67 11/29/16 09:29 Respiratory Rate 18 11/29/16 09:29 Blood Pressure 112/63 11/29/16 09:29 O2 Sat by Pulse Oximetry (%) 96 11/29/16 09:00 Neck: Yes: Supple Cardiovascular: Yes: Regular Rate and Rhythm, S1, S2 Respiratory: Yes: CTA Bilaterally Gastrointestinal: Yes: Normal Bowel Sounds, Soft. No: Tenderness Edema: No Labs: CBC, BMP 11/29/16 06:30 11/29/16 06:30 INR, PTT INR 1.06 (0.82-1.09) 11/27/16 06:00 Fibrinogen 313.0 mg/dL (238-498) 11/27/16 06:00 Problem List - Problems (1) Acute cholangitis Code(s): K83.0 - CHOLANGITIS (2) Biliary sepsis Code(s): K83.0 - CHOLANGITIS (3) CAD (coronary artery disease) Code(s): I25.10 - ATHSCL HEART DISEASE OF [place] CORONARY ARTERY W/O ANG PCTRS Qualifiers: Coronary Disease-Associated Artery/Lesion type: unspecified vessel or lesion type [place] vs. transplanted heart: [place] heart Associated angina: without angina Qualified Code(s): I25.10 - Atherosclerotic heart disease of [place] coronary artery without angina pectoris (4) CKD (chronic kidney disease) Code(s): N18.9 - CHRONIC KIDNEY DISEASE, UNSPECIFIED (5) S/P ERCP Code(s): Z98.890 - OTHER SPECIFIED POSTPROCEDURAL STATES (6) Hypertension Code(s): I10 - ESSENTIAL (PRIMARY) HYPERTENSION Qualifiers: Hypertension type: essential hypertension Qualified Code(s): I10 - Essential (primary) hypertension (7) Hypercholesterolemia Code(s): E78.00 - PURE HYPERCHOLESTEROLEMIA, UNSPECIFIED (8) S/P TAVR (transcatheter aortic valve replacement) Code(s): Z95.2 - PRESENCE OF PROSTHETIC HEART VALVE Assessment/Plan 1. Status post ERCP for ascending cholangitis leading to sepsis 2. Post TAVR 3. Coronary artery disease, s/p PCI/stent, angina 4. Hypertension 5. Renal cancer s/p right nephrectomy PLAN: 1. Continue GI recommendation 2. Continue Carvedilol 3. Continue statin and follow LFTs 4. Antibiotics as per ID 5. Follow H/H and transfuse PRBC is indicated Further plans are to follow. So far patient is hemodynamically stable Juan Hays MD
[2016-11-29] MEDS ORDERED: FUROSEMIDE 20 MG TABLET (FP) PO ONE (13:16)
--- NOTE | 2016-11-29 13:16 | PN ---
Progress Note, Physician History of Present Illness: Pt seen and examined at bedside. He is awake and alert. He denies shortness of breath. He says he was on lasix but ran out of it and stopped taking it. - Current Medication List Current Medications: Active Medications Aclidinium [place] (Tudorza -) 1 puff IH BID [facility] Last Admin: 11/29/16 09:12 Dose: 1 puff Atorvastatin Calcium (Lipitor -) 10 mg PO [facility] Last Admin: 11/28/16 21:15 Dose: 10 mg Carvedilol (Coreg -) 6.25 mg PO BID [facility] Last Admin: 11/29/16 09:11 Dose: 6.25 mg Docusate Sodium (Colace -) 300 mg PO [facility] Finasteride (Proscar -) 5 mg PO DAILY [facility] Last Admin: 11/29/16 09:11 Dose: 5 mg Cefazolin Sodium/Dextrose (Ancef 2 Gm Premixed Ivpb -) 50 mls @ 200 mls/hr IVPB BID [facility] Last Admin: 11/29/16 09:11 Dose: 200 mls/hr Montelukast Sodium (Singulair -) 10 mg PO [facility] Last Admin: 11/28/16 21:15 Dose: 10 mg Pantoprazole Sodium (Protonix -) 40 mg PO BID [facility] Last Admin: 11/29/16 09:11 Dose: 40 mg Phenol/Menthol (Chloraseptic -) 1 spray MM Q6HPO PRN PRN Reason: SORE THROAT Polyethylene Glycol (Miralax (For Daily Use) -) 17 gm PO DAILY [facility] Tamsulosin HCl (Flomax -) 0.4 mg PO DAILY@0830 [facility] Last Admin: 11/29/16 08:10 Dose: 0.4 mg Ursodiol (Actigal -) 300 mg PO BID [facility] Last Admin: 11/29/16 09:11 Dose: 300 mg - Objective Vital Signs: Vital Signs Temperature 98.4 F 11/29/16 09:29 Pulse Rate 67 11/29/16 09:29 Respiratory Rate 18 11/29/16 09:29 Blood Pressure 112/63 11/29/16 09:29 O2 Sat by Pulse Oximetry (%) 96 11/29/16 09:00 Constitutional: Yes: Calm Eyes: Yes: Conjunctiva Clear HENT: Yes: Atraumatic Neck: Yes: Supple Cardiovascular: Yes: S1, S2 Respiratory: Yes: CTA Bilaterally Gastrointestinal: Yes: Soft Genitourinary: Yes: WNL Musculoskeletal: Yes: WNL Edema: Yes Edema: LLE: Trace, RLE: Trace Neurological: Yes: Oriented Psychiatric: Yes: Oriented Labs: CBC, BMP 11/29/16 06:30 11/29/16 06:30 INR, PTT INR 1.06 (0.82-1.09) 11/27/16 06:00 Fibrinogen 313.0 mg/dL (238-498) 11/27/16 06:00 Problem List - Problems (1) Elevated liver enzymes Code(s): R74.8 - ABNORMAL LEVELS OF OTHER SERUM ENZYMES (2) CAD (coronary artery disease) Code(s): I25.10 - ATHSCL HEART DISEASE OF [place] CORONARY ARTERY W/O ANG PCTRS Qualifiers: Coronary Disease-Associated Artery/Lesion type: unspecified vessel or lesion type [place] vs. transplanted heart: [place] heart Associated angina: without angina Qualified Code(s): I25.10 - Atherosclerotic heart disease of [place] coronary artery without angina pectoris (3) CKD (chronic kidney disease) Code(s): N18.9 - CHRONIC KIDNEY DISEASE, UNSPECIFIED Assessment/Plan Current Medications Generic Name Dose Route Start Last Admin Trade Name Freq PRN Reason Stop Dose Admin Aclidinium [place] 1 puff 11/24/16 22:00 11/29/16 09:12 Tudorza - IH 1 puff BID SUBHA Administration Atorvastatin Calcium 10 mg 11/25/16 22:00 11/28/16 21:15 Lipitor - PO 10 mg HS SUBHA Administration Carvedilol 6.25 mg 11/24/16 22:00 11/29/16 09:11 Coreg - PO 6.25 mg BID SUBHA Administration Docusate Sodium 300 mg 11/29/16 22:00 Colace - PO HS SUBHA Finasteride 5 mg 11/25/16 10:00 11/29/16 09:11 Proscar - PO 5 mg DAILY SUBHA Administration Cefazolin Sodium/Dextrose 50 mls @ 200 mls/hr 11/27/16 22:00 11/29/16 09:11 Ancef 2 Gm Premixed Ivpb - IVPB 200 mls/hr BID SUBHA Administration Montelukast Sodium 10 mg 11/25/16 22:00 11/28/16 21:15 Singulair - PO 10 mg HS SUBHA Administration Pantoprazole Sodium 40 mg 11/27/16 22:00 11/29/16 09:11 Protonix - PO 40 mg BID SUBHA Administration Phenol/Menthol 1 spray 11/27/16 13:13 Chloraseptic - MM Q6HPO PRN SORE THROAT Polyethylene Glycol 17 gm 11/29/16 13:00 Miralax (For Daily Use) - PO DAILY SUBHA Tamsulosin HCl 0.4 mg 11/25/16 08:30 11/29/16 08:10 Flomax - PO 0.4 mg DAILY@0830 SUBHA Administration Ursodiol 300 mg 11/24/16 22:00 11/29/16 09:11 Actigal - PO 300 mg BID SUBHA Administration Impression 1. CKD with stable renal function 2. hx of CRISS in the past 3. choledocholithiasis 4. CAD 5. hx of Renal Cell Cancer s/p nephroectomy 6. aortic stenosis Plan - will give a small dose of lasix - repeat labs in am - renal function is stable - asked pt to have family bring in his home meds - will follow Dr Medina
[2016-11-29] MEDS: POLYETHYLENE GLYCOL 3350 119 GM BTL PO SCH (13:27)
--- NOTE | 2016-11-29 14:27 | PN ---
Physical Exam: SUBJECTIVE: Patient seen and examined at bed side. He is doing well. NO acute events over night. He is still constipated. He is asking to go home. He denies any fever, chills, D/C/N/V. OBJECTIVE: Vital Signs Period Temp Pulse Resp BP Sys/Hinkle Pulse Ox Last 24 Hr 97.4 F-98.4 F 54-73 17-20 97-162/52-87 96-96 GENERAL: The patient is awake, alert, and fully oriented, in no acute distress. HEAD: Normal with no signs of trauma. EYES: PERRL, sclera anicteric, conjunctiva clear. No ptosis. ENT: moist mucous membranes. NECK: Trachea midline, full range of motion, supple. LUNGS: Breath sounds equal, clear to auscultation bilaterally, no wheezes, no crackles, no accessory muscle use. HEART: Regular rate and rhythm, S1, S2, 2/6 systolic murmur,no rub or gallop. ABDOMEN: Soft, nontender, nondistended, normoactive bowel sounds, no guarding, no rebound, no hepatosplenomegaly, no masses. EXTREMITIES: 2+ pulses, warm, well-perfused, no edema. NEUROLOGICAL: Normal speech, gait not observed. PSYCH: Normal mood, normal affect. SKIN: Warm, dry, normal turgor, no rashes or lesions noted Laboratory Results - last 24 hr 11/27/16 11/27/16 11/29/16 06:00 06:00 06:30 WBC RBC Hgb Hct MCV MCH MCHC RDW Plt Count MPV Neutrophils % Lymphocytes % Monocytes % Eosinophils % Basophils % Retic Count Sodium 139 140 Potassium 4.1 3.7 Chloride 105 105 Carbon Dioxide 24 28 Anion Gap 10 7 L BUN 39 H D 28 H Creatinine 1.8 H 1.7 H Creat Clearance w eGFR 35.79 Random Glucose 85 83 Calcium 8.1 L 8.0 L Total Bilirubin 1.2 H 0.6 Direct Bilirubin 0.3 H D AST 91 H D 32 D ALT 114 H D 42 D Alkaline Phosphatase 194 H 145 H C-Reactive Protein 1.6 H D Total Protein 4.8 L 4.9 L Albumin 2.3 L 2.4 L Vitamin B12 817 Serum Folate 8 TSH 53.60 H Hep-Induced Plt Ab Rapid 0.312 11/29/16 06:30 WBC 4.8 RBC 2.70 L Hgb 8.9 L Hct 25.9 L MCV 95.9 MCH 32.9 MCHC 34.3 RDW 17.1 H Plt Count 73 L MPV 9.5 Neutrophils % 66.2 Lymphocytes % 20.1 D Monocytes % 6.4 Eosinophils % 6.2 H Basophils % 1.1 Retic Count 1.37 D Sodium Potassium Chloride Carbon Dioxide Anion Gap BUN Creatinine Creat Clearance w eGFR Random Glucose Calcium Total Bilirubin Direct Bilirubin AST ALT Alkaline Phosphatase C-Reactive Protein Total Protein Albumin Vitamin B12 Serum Folate TSH Hep-Induced Plt Ab Rapid Active Medications Generic Name Dose Route Start Last Admin Trade Name Freq PRN Reason Stop Dose Admin Aclidinium [place] 1 puff 11/24/16 22:00 11/29/16 09:12 Tudorza - IH 1 puff BID SUBHA Administration Atorvastatin Calcium 10 mg 11/25/16 22:00 11/28/16 21:15 Lipitor - PO 10 mg HS SUBHA Administration Carvedilol 6.25 mg 11/24/16 22:00 11/29/16 09:11 Coreg - PO 6.25 mg BID SUBHA Administration Docusate Sodium 300 mg 11/29/16 22:00 Colace - PO HS SUBHA Finasteride 5 mg 11/25/16 10:00 11/29/16 09:11 Proscar - PO 5 mg DAILY SUBHA Administration Cefazolin Sodium/Dextrose 50 mls @ 200 mls/hr 11/27/16 22:00 11/29/16 09:11 Ancef 2 Gm Premixed Ivpb - IVPB 200 mls/hr BID SUHBA Administration Montelukast Sodium 10 mg 11/25/16 22:00 11/28/16 21:15 Singulair - PO 10 mg HS SUBHA Administration Pantoprazole Sodium 40 mg 11/27/16 22:00 11/29/16 09:11 Protonix - PO 40 mg BID SUBHA Administration Phenol/Menthol 1 spray 11/27/16 13:13 Chloraseptic - MM Q6HPO PRN SORE THROAT Polyethylene Glycol 17 gm 11/29/16 13:00 11/29/16 13:27 Miralax (For Daily Use) - PO 17 gm DAILY SUBHA Administration Tamsulosin HCl 0.4 mg 11/25/16 08:30 11/29/16 08:10 Flomax - PO 0.4 mg DAILY@0830 SUBHA Administration Ursodiol 300 mg 11/24/16 22:00 11/29/16 09:11 Actigal - PO 300 mg BID SUBHA Administration ASSESSMENT/PLAN: Patient is 86 Year old white male with H/O choledocholithiasis and cholangitis s /p stent removal presented to Ed with one day history of RUQ abdominal pain and bloody vomiting.admitted to med-surg inpatient service for common bile duct obstruction. #Acute choledocholithiasis with Acute cholangitis and E.choli Bacteremia * Likely 2/2 residual stones post stent removal @11/23 * CBD dilated 1.8 cm * Continue Abx Cefazoline 2 g IvPB - day 6 * Cont. actigall (Ursodiol) 300 mg PO BID SUBHA * Start soft diet * Pain control with Morphine 2 mg PO Q4 Hr PRN * GI consulted , MRCP inconclusive. * F/U CT result : CBD 1.7 cm with Pneumobilia , right flank hernia containing ascitis same to prior CT on 08/09/2016 * Will give one dose IV ceftriaxone 2 g before D/C home tomorrow # Anemia, macrocytic, concerned about GI bleed S/P ERCP * H/H today 8.9 less than yesterday 9.07/19. S/P one unite transfusion * Monitor hemogloglobin * Ferritin is normal. Iron, TIBC, iron sat, B12, folate, TSH ordered # Constipation: * did not move his bowel for 5 days * Start Meralax PO daily * Start Colace 300 mg QHS * F/u Clinically # Odynophagia, S/P ERCP * Immroved * on Chloraseptic * Monitor Clinically * Speach and awallow eval came back normal * Start Soft diet # Thrombocytopenia, likely 2/2 Bacteremia vs HIT * PLT today 72 * Monitor platlets * HIT AB pending * Consult hematology * * Stool is negative for occult blood x 2 #Transaminitis , likely 2/2 to CBD obstruction * AST /ALT 1107/427, ALP 304 , total Bili 2.9, today AST/ ALT 53/80 * INR 118, PTT 29.3 * Trend liver enzyme: normal * Monitor clinically * US showed dilated CBD 1.8 with pneumobilia S/P ERCP #vomitting Blood(hematechemesis) likely 2/2 gastric mucosal S/P ERCP , Resolved * Patient had 5 episode of bloody vomiting * improved * Stool ocult negative * Start Protonix 40 mg PO daily * D/C IV fluids * Montitor clinically # 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, stage 3to 4 , stable * Bun/Cr 56/1.2, today 33/1.9 stable * small dose lasix given by nephrology * Monitor Cr * F/U clinically * F/U as out patient * Nephrology on board #CAD s/p stent, chronic * Continue to hold plavix due to GI bleed * Continue Lipitor 10 mg PO HS SUBHA * Continue Coreg(carvedilol) 6.25 mg PO BID SUBHA * EKG did not show any specific ST/T wave changes #Aortic stenosis s/p TAVR * Systolic Murmur 2- * Hold plavix and ASA # Renal cell cancer s/p nephrectomy * Stable * single kidney , avoid nephrotoxic including contrast #Hypertension * BP 111/70 yesterday , today 119/59 * continue carvedilol 6.25 mg PO BID SUBHA * F/u BP #BPH, chronic * Stable * Continue home meds finasteride 5 mg PO DAILY and flomax 0.4 mg PO DAILY #FEN * F: On NO fluids now * E: Monitor lytes * soft food diet #Prophylaxis * DVT: SCDs, due to GI bleed * GI: Protonix 40 mg PO daily #Dispo * Dc home When IV antibiotics 7 days completed per ID Visit type - Emergency Visit Emergency Visit: Yes ED Registration Date: 11/24/16 Care time: The patient presented to the Emergency Department on the above date and was hospitalized for further evaluation of their emergent condition. - New Patient This patient is new to me today: No - Critical Care Critical Care patient: No - Discharge Referral Referred to [facility] Med P.C.: No
--- NOTE | 2016-11-29 14:40 | PN ---
Teaching Attending Note Name of Resident: Jerome Martin ATTENDING PHYSICIAN STATEMENT I saw and evaluated the patient. I reviewed the resident's note and discussed the case with the resident. I agree with the resident's findings and plan as documented. SUBJECTIVE:c/o constipation. no BM in 72H. denies Cp, SOB< fever, chills, abdominal pain, N/V OBJECTIVE: Last Vital Signs Temp Pulse Resp BP Pulse Ox 97.4 F L 54 L 17 97/52 96 11/29/16 13:46 11/29/16 13:46 11/29/16 13:46 11/29/16 13:46 11/29/16 09:00 General NAD ABdomen soft NT/ND no rebound or guarding. normoactive BS ASSESSMENT AND PLAN: 86 year old man with a history of HTN, CAD, [place], cardiac stent, , TAVR, right nephrectomy, BPH, urethral strictures who presents to the ER with abdominal pain , vomiting and fever which started after CBD removal 11/23. 1. Choledocholithiasis with acute cholangitis and E.coli bacteremia- s/p ERCP, stone removal, CBD stent removal 11/23. MRCP inconclusive. CT done. advanced to regular diet and tolerating. LFT continue to trend down. repeat Bcx sent yesterday and NGTD. on Cefipime. day 6 of abx therapy. as per ID plan is to complete 7 day course of IV ABx. ID and GI on board. 2. Acute Hgb drop- concern for GI bleeding as pt has had hx vs spincterectomy. s /p 1 unit PRBC this admission. Hgb remains stable. 3. constipation- start stool softeners, miralax 4. Acute kidney injury on stage 3 vs 4 CKD- improving. small dose lasix given by nephrology, monitor Cr and electrolytes. nephrology on board. 5. CAD, history of [place], stent-cont to hold plavix. Continue Coreg, Lipitor 6. , history of TAVR 7. HTN- Continue Coreg 8. History of renal cancer, right nephrectomy 9. BPH- Continue Flomax, Proscar 10. Thrombocytopenia-likley due to bacteremia. stable. HIT pending. hematology consulted. Monitor platelets 11. DVT ppx- SCD due to GI bleed. 12. d/c home when abx course completed.
[2016-11-29] MEDS: ATORVASTATIN CA 10 MG TABLET (FP) PO SCH (21:32)
[2016-11-29] MEDS: MONTELUKAST NA 10 MG TABLET PO SCH (21:33)
[2016-11-29] MEDS ORDERED: DOCUSATE SODIUM 100 MG CAPSULE (FP) PO SCH (22:00)
[2016-11-30 05:10] VITALS: PULSE 62
[2016-11-30] MEDS: TAMSULOSIN HCL 0.4 MG CAP.ER.24H (FP) PO SCH (08:19)
[2016-11-30 09:14] LABS: MCH 32.8 pg (25.7-33.7); MCHC 34.1 g/dl (32.0-35.9); MEAN CELL VOLUME 96.1 fl (80-96); MEAN PLT VOLUME 9.4 fl (7.5-11.1); PLATELET COUNT 89 K/MM3 (134-434); RDW 17.2 % (11.9-15.9); WHITE BLOOD COUNT 5.8 K/mm3 (4.0-10.0)
--- NOTE | 2016-11-30 09:28 | PN ---
Progress Note, Physician Chief Complaint: Not in distress Feels better History of Present Illness: Patient was seen and examined. Awake and alert. Chart was reviewed Denies chest pain, SOB or palpitations Denies abdominal pain - Current Medication List Current Medications: Active Medications Aclidinium [place] (Tudorza -) 1 puff IH BID [facility] Last Admin: 11/29/16 21:45 Dose: 1 puff Atorvastatin Calcium (Lipitor -) 10 mg PO HS [facility] Last Admin: 11/29/16 21:32 Dose: 10 mg Carvedilol (Coreg -) 6.25 mg PO BID [facility] Last Admin: 11/29/16 21:33 Dose: 6.25 mg Docusate Sodium (Colace -) 300 mg PO HS [facility] Last Admin: 11/29/16 21:42 Dose: 300 mg Finasteride (Proscar -) 5 mg PO DAILY [facility] Last Admin: 11/29/16 09:11 Dose: 5 mg Cefazolin Sodium/Dextrose (Ancef 2 Gm Premixed Ivpb -) 50 mls @ 200 mls/hr IVPB BID [facility] Last Admin: 11/29/16 21:32 Dose: 200 mls/hr Montelukast Sodium (Singulair -) 10 mg PO HS [facility] Last Admin: 11/29/16 21:33 Dose: 10 mg Pantoprazole Sodium (Protonix -) 40 mg PO BID [facility] Last Admin: 11/29/16 21:32 Dose: 40 mg Phenol/Menthol (Chloraseptic -) 1 spray MM Q6HPO PRN PRN Reason: SORE THROAT Polyethylene Glycol (Miralax (For Daily Use) -) 17 gm PO DAILY [facility] Last Admin: 11/29/16 13:27 Dose: 17 gm Tamsulosin HCl (Flomax -) 0.4 mg PO DAILY@0830 [facility] Last Admin: 11/30/16 08:19 Dose: 0.4 mg Ursodiol (Actigal -) 300 mg PO BID [facility] Last Admin: 11/29/16 21:32 Dose: 300 mg - Objective Vital Signs: Vital Signs Temperature 97.7 F 11/30/16 05:09 Pulse Rate 62 11/30/16 05:09 Respiratory Rate 18 11/30/16 05:09 Blood Pressure 108/52 11/30/16 05:09 O2 Sat by Pulse Oximetry (%) 96 11/29/16 20:51 Neck: Yes: Supple Cardiovascular: Yes: Regular Rate and Rhythm, S1, S2 Respiratory: Yes: CTA Bilaterally Gastrointestinal: Yes: Normal Bowel Sounds, Soft. No: Tenderness Edema: No Labs: CBC, BMP 11/30/16 08:45 INR, PTT INR 1.06 (0.82-1.09) 11/27/16 06:00 Fibrinogen 313.0 mg/dL (238-498) 11/27/16 06:00 Problem List - Problems (1) Acute cholangitis Code(s): K83.0 - CHOLANGITIS (2) Biliary sepsis Code(s): K83.0 - CHOLANGITIS (3) CAD (coronary artery disease) Code(s): I25.10 - ATHSCL HEART DISEASE OF [place] CORONARY ARTERY W/O ANG PCTRS Qualifiers: Coronary Disease-Associated Artery/Lesion type: unspecified vessel or lesion type [place] vs. transplanted heart: [place] heart Associated angina: without angina Qualified Code(s): I25.10 - Atherosclerotic heart disease of [place] coronary artery without angina pectoris (4) CKD (chronic kidney disease) Code(s): N18.9 - CHRONIC KIDNEY DISEASE, UNSPECIFIED (5) S/P ERCP Code(s): Z98.890 - OTHER SPECIFIED POSTPROCEDURAL STATES (6) Hypertension Code(s): I10 - ESSENTIAL (PRIMARY) HYPERTENSION Qualifiers: Hypertension type: essential hypertension Qualified Code(s): I10 - Essential (primary) hypertension (7) Hypercholesterolemia Code(s): E78.00 - PURE HYPERCHOLESTEROLEMIA, UNSPECIFIED (8) S/P TAVR (transcatheter aortic valve replacement) Code(s): Z95.2 - PRESENCE OF PROSTHETIC HEART VALVE Assessment/Plan 1. Status post ERCP for ascending cholangitis leading to sepsis 2. Post TAVR 3. Coronary artery disease, s/p PCI/stent, angina 4. Hypertension 5. Renal cancer s/p right nephrectomy PLAN: 1. Continue GI recommendation 2. Continue Carvedilol 3. Continue statin and follow LFTs 4. Antibiotics as per ID Further plans are to follow. So far patient is hemodynamically stable. Discharge planning Juan Hays MD
[2016-11-30 09:42] LABS: ALBUMIN 2.5 g/dl (3.4-5.0); ALK PHOS 151 U/L (45-117); ANION GAP 11 (8-16); BILIRUBIN,TOTAL 0.5 mg/dL (0.2-1.0); CALCIUM 8.2 mg/dL (8.5-10.1); CO2 24 mmol/L (21-32); CREATININE 1.7 mg/dL (0.7-1.3); GLUCOSE,RANDOM 123 mg/dL (74-106); SGOT/AST 29 U/L (15-37); SGPT/ALT 24 U/L (12-78); TOT PROT 5.2 g/dl (6.4-8.2)
[2016-11-30] MEDS: CARVEDILOL 6.25 MG TABLET (FP) PO SCH (09:44)
[2016-11-30] MEDS: FINASTERIDE 5 MG TABLET (FP) PO SCH (09:44)
[2016-11-30] MEDS: POLYETHYLENE GLYCOL 3350 119 GM BTL PO SCH (09:44)
[2016-11-30] MEDS: PANTOPRAZOLE 40 MG TABLET (FP) PO SCH (09:44)
[2016-11-30] MEDS: CEFAZOLIN 2 GM/D5W 50 ML IVPB SCH (09:44)
[2016-11-30] MEDS: URSODIOL 300 MG CAPSULE PO SCH (09:44)
[2016-11-30] MEDS ORDERED: PT OWN MED DRAWER 7, Y5N ONE (09:45)
[2016-11-30] MEDS: ACLIDINIUM BROMIDE 400 MCG/INH AERO.POWD IH SCH (09:46)
[2016-11-30 10:32] LABS: ANION GAP 8 (8-16); CO2 26 mmol/L (21-32); CREATININE 1.7 mg/dL (0.7-1.3); GLUCOSE,RANDOM 80 mg/dL (74-106)
[2016-11-30 10:33] LABS: CALCIUM 7.9 mg/dL (8.5-10.1)
--- NOTE | 2016-11-30 12:35 | PN ---
Teaching Attending Note Name of Resident: Jreome Martin ATTENDING PHYSICIAN STATEMENT I saw and evaluated the patient. I reviewed the resident's note and discussed the case with the resident. I agree with the resident's findings and plan as documented. SUBJECTIVE:asymptomatic. denies Cp, SOB, fever, chills, abdominal pain, N/V/C/D reported by RN that he had melanotic stool x1. OBJECTIVE: Last Vital Signs Temp Pulse Resp BP Pulse Ox 97.7 F 62 18 108/52 96 11/30/16 05:11/30/16 05:11/30/16 05:11/30/16 05:11/29/16 20:51 General NAD Lungs CTA B/L no wheezing/rales/rhonchi ABdomen soft NT/ND no rebound or guarding. normoactive BS ASSESSMENT AND PLAN: 86 year old man with a history of HTN, CAD, [place], cardiac stent, , TAVR, right nephrectomy, BPH, urethral strictures who presents to the ER with abdominal pain , vomiting and fever which started after CBD removal 11/23. 1. Choledocholithiasis with acute cholangitis and E.coli bacteremia- s/p ERCP, stone removal, CBD stent removal 11/23. tolerating regular diet. LFT near normal. will give Ceftriaxone 2g once today to complete abx course. will need to f/u with GI closely for further management. ID and GI on board. 2. Acute Hgb drop- concern for GI bleeding as pt has had hx vs spincterectomy. s /p 1 unit PRBC this admission. Hgb remains stable. however did have melanotic stool this morning which can be residual blood from recent bleed as Hgb is currently stable. FOBT is + which can also be accounted for same reason. will reach out to GI if further management is required at this time. 3. constipation- 1 BM today. cont stool softeners prn for daily bm 4. Acute kidney injury on stage 3 vs 4 CKD-stable. will d/w nephro if to continue lasix at this time. nephrology on board. 5. CAD, history of [place], stent-cont to hold plavix. Continue Coreg, Lipitor 6. , history of TAVR 7. HTN- Continue Coreg 8. History of renal cancer, right nephrectomy 9. BPH- Continue Flomax, Proscar 10. Thrombocytopenia-likley due to bacteremia. stable. HIT pending. hematology consulted. Monitor platelets 11. DVT ppx- SCD due to GI bleed.
[2016-11-30] MEDS ORDERED: DEXTROSE 5%-WATER 100 ML IVPB ONE (12:51)
[2016-11-30] MEDS ORDERED: CEFTRIAXONE 2 GM in DEXTROSE 5%-WATER 100 ML IVPB ONE (13:00)
[2016-11-30 14:22] VITALS: BP 102/68; TEMP 97.9
--- NOTE | 2016-11-30 14:41 | DS ---
Physical Exam: SUBJECTIVE: Patient seen and examined at bed side. He is doing well and stable to go home. He denies nay fever, chills ,D/C/N/V. OBJECTIVE: Vital Signs Period Temp Pulse Resp BP Sys/Hinkle Pulse Ox Last 24 Hr 97.7 F-98.9 F 62-72 18-18 102-108/52-68 96-96 PHYSICAL EXAM GENERAL: The patient is awake, alert, and fully oriented, in no acute distress. HEAD: Normal with no signs of trauma. EYES: PERRL, extraocular movements intact, sclera anicteric, conjunctiva clear. ENT: Ears normal, nares patent, oropharynx clear without exudates, moist mucous membranes. NECK: Trachea midline, full range of motion, supple. LUNGS: Breath sounds equal, clear to auscultation bilaterally, no wheezes, no crackles, no accessory muscle use. HEART: Regular rate and rhythm, S1, S2 without murmur, rub or gallop. ABDOMEN: Soft, nontender, nondistended, normoactive bowel sounds, no guarding, no rebound, no hepatosplenomegaly, no masses. EXTREMITIES: 2+ pulses, warm, well-perfused, no edema. NEUROLOGICAL: Cranial nerves II through XII grossly intact. Normal speech, gait not observed. PSYCH: Normal mood, normal affect. SKIN: Warm, dry, normal turgor, no rashes or lesions noted. LABS Laboratory Results - last 24 hr 11/26/16 11/26/16 11/30/16 15:40 15:40 06:00 WBC RBC Hgb Hct MCV MCH MCHC RDW Plt Count MPV Fibrin Degrad Products 10 H Sodium 139 Potassium 3.9 Chloride 105 Carbon Dioxide 26 Anion Gap 8 BUN 24 H Creatinine 1.7 H Creat Clearance w eGFR Random Glucose 80 Calcium 7.9 L Total Bilirubin AST ALT Alkaline Phosphatase Total Protein Albumin Stool Occult Blood Blood Type A POSITIVE Antibody Screen Negative Crossmatch See Detail 11/30/16 11/30/16 11/30/16 07:55 08:45 08:45 WBC 5.8 RBC 3.02 L Hgb 9.9 L D Hct 29.0 L MCV 96.1 H MCH 32.8 MCHC 34.1 RDW 17.2 H Plt Count 89 L D MPV 9.4 Fibrin Degrad Products Sodium 140 Potassium 3.7 Chloride 105 Carbon Dioxide 24 Anion Gap 11 BUN 24 H Creatinine 1.7 H Creat Clearance w eGFR 38.23 Random Glucose 123 H D Calcium 8.2 L Total Bilirubin 0.5 AST 29 ALT 24 D Alkaline Phosphatase 151 H Total Protein 5.2 L Albumin 2.5 L Stool Occult Blood Positive Blood Type Antibody Screen Crossmatch HOSPITAL COURSE: Date of Admission:11/24/16 Date of Discharge: 11/30/16 86 year old man with a history of HTN, CAD, [place], cardiac stent, , TAVR, right nephrectomy, BPH, urethral strictures who presents to the ER with abdominal pain , vomiting and fever which started after CBD removal 11/23. Patient was found to have Choledocholithiasis with acute cholangitis and E.coli bacteremia- s/p ERCP, stone removal, CBD stent removal 11/23. tolerating regular diet. LFT come to near normal. was given 7 days total of IV antibiotics. will need to f/u with GI after discharged. He has Acute Hgb drop we were concerned for GI bleeding as pt has had hx vs spincterectomy. s/p 1 unit PRBC this admission. Hgb remains stable. however did have melanotic stool this morning which can be residual blood from recent bleed as Hgb is currently stable. FOBT is + which can also be accounted for same reason. patient will follow up GI within one week of discharge. Patient had constipation was treated with stool softeners. He needs to continue using the softeners on daily basis to help moving his bowel. he needs to stop using them if he develop any diarrhea. He develped odynophagia after ERCP and choraseptic was prescriped to help with that. Patient develop thrombocytopenia secondary to sepsis. He will need to follow up with the pcp as out patient and [employer] follow up if needed. Patient will continue his home meds for HTN, BPH . Patient will return to the hospital if he develp any fever, chills, or his symptoms worsen. Patient will hold on plavix till his stool is brown or till he see dr Roy or his PCP to make sure he is not bleeding. Minutes to complete discharge: 30 Discharge Summary Reason For Visit: ELEVATED LIVER ENZYMES Current Active Problems CRISS (acute kidney injury) (Acute) Acute cholangitis (Acute) Acute hypoxemic respiratory failure (Acute) Anemia (Acute) Bacteremia due to Gram-negative bacteria (Acute) Biliary sepsis (Acute) Elevated liver enzymes (Acute) Hypercholesterolemia (Acute) S/P TAVR (transcatheter aortic valve replacement) (Acute) Condition: Stable - Instructions Diet, Activity, Other Instructions: Please follow up with within one week Please follow up wit your Primary care physician within one week. Please resume all home meds as prescribed. No adjustment to your medicine has been done. Please eat soft high fiber diet. Please use Miralax daily to help with constipation , and colace 300 mg at bed time . Please stop them if you notice any diarrhea. Please stop Plavix until you no longer have black stools. If you develop any fever, chills, abdominal pain, or your symptoms worsen please return to Emergency room. Referrals: Ignacio Parks MD [Staff Physician] - Melvin Goff MD [Primary Care Provider] - Disposition: HOME - Home Medications Comprehensive Discharge Medication List: Ambulatory Orders Finasteride 5 mg PO DAILY 05/13/16 Carvedilol [Coreg] 6.25 mg PO BID tablet 10/03/16 Ursodiol 300 mg PO BID capsule 10/03/16 Montelukast Sodium [Singulair] 10 mg PO DAILY tablet 11/07/16 Atorvastatin Calcium 10 mg PO DAILY tablet 11/09/16 Tamsulosin HCl [Flomax -] 0.4 mg PO DAILY 11/23/16 Ursodiol [Actigall] 300 mg PO BID #180 capsule 11/23/16 Docusate Sodium [Colace -] 300 mg PO HS #21 cap 11/30/16 Pantoprazole Sodium [Protonix -] 40 mg PO DAILY #30 tab 11/30/16 Phenol [Chloraseptic -] 1 spray MM Q6HPO PRN #1 bottle 11/30/16 Polyethylene Glycol 3350 [Miralax 119 gm Btl -] 17 gm PO DAILY #1 bottle This patient is new to me today: No Emergency Visit: Yes ED Registration Date: 11/24/16 Care time: The patient presented to the Emergency Department on the above date and was hospitalized for further evaluation of their emergent condition. Critical Care patient: No - Discharge Referral Referred to [facility] Med [facility] No
--- NOTE | 2016-11-30 15:10 | PN ---
Progress Note, Physician History of Present Illness: Pt seen and examined at bedside. He is awake and alert. He denies shortness of breath. - Current Medication List Current Medications: Active Medications Aclidinium Wilson (Tudorza -) 1 puff IH BID [facility] Last Admin: 11/30/16 09:46 Dose: 1 puff Atorvastatin Calcium (Lipitor -) 10 mg PO HS [facility] Last Admin: 11/29/16 21:32 Dose: 10 mg Carvedilol (Coreg -) 6.25 mg PO BID [facility] Last Admin: 11/30/16 09:44 Dose: 6.25 mg Docusate Sodium (Colace -) 300 mg PO [facility] Last Admin: 11/29/16 21:42 Dose: 300 mg Finasteride (Proscar -) 5 mg PO DAILY [facility] Last Admin: 11/30/16 09:44 Dose: 5 mg Montelukast Sodium (Singulair -) 10 mg PO [facility] Last Admin: 11/29/16 21:33 Dose: 10 mg Pantoprazole Sodium (Protonix -) 40 mg PO BID [facility] Last Admin: 11/30/16 09:44 Dose: 40 mg Phenol/Menthol (Chloraseptic -) 1 spray MM Q6HPO PRN PRN Reason: SORE THROAT Polyethylene Glycol (Miralax (For Daily Use) -) 17 gm PO DAILY [facility] Last Admin: 11/30/16 09:44 Dose: 17 gm Tamsulosin HCl (Flomax -) 0.4 mg PO DAILY@0830 [facility] Last Admin: 11/30/16 08:19 Dose: 0.4 mg Ursodiol (Actigal -) 300 mg PO BID [facility] Last Admin: 11/30/16 09:44 Dose: 300 mg - Objective Vital Signs: Vital Signs Temperature 97.9 F 11/30/16 14:21 Pulse Rate 62 11/30/16 14:21 Respiratory Rate 18 11/30/16 14:21 Blood Pressure 102/68 11/30/16 14:21 O2 Sat by Pulse Oximetry (%) 96 11/30/16 09:00 Constitutional: Yes: Calm Eyes: Yes: Conjunctiva Clear HENT: Yes: Atraumatic Neck: Yes: Supple Cardiovascular: Yes: S1, S2 Respiratory: Yes: CTA Bilaterally Gastrointestinal: Yes: Soft Genitourinary: Yes: WNL Edema: Yes Edema: LLE: Trace, RLE: Trace Neurological: Yes: Oriented Psychiatric: Yes: Oriented Labs: CBC, BMP 11/30/16 08:45 11/30/16 08:45 INR, PTT INR 1.06 (0.82-1.09) 11/27/16 06:00 Fibrinogen 313.0 mg/dL (238-498) 11/27/16 06:00 Problem List - Problems (1) Elevated liver enzymes Code(s): R74.8 - ABNORMAL LEVELS OF OTHER SERUM ENZYMES (2) CAD (coronary artery disease) Code(s): I25.10 - ATHSCL HEART DISEASE OF [place] CORONARY ARTERY W/O ANG PCTRS Qualifiers: Qualified Code(s): I25.10 - Atherosclerotic heart disease of [place] coronary artery without angina pectoris (3) CKD (chronic kidney disease) Code(s): N18.9 - CHRONIC KIDNEY DISEASE, UNSPECIFIED Assessment/Plan Current Medications Generic Name Dose Route Start Last Admin Trade Name Freq PRN Reason Stop Dose Admin Aclidinium Wilson 1 puff 11/24/16 22:00 11/30/16 09:46 Tudorza - IH 1 puff BID SUBHA Administration Atorvastatin Calcium 10 mg 11/25/16 22:00 11/29/16 21:32 Lipitor - PO 10 mg HS SUBHA Administration Carvedilol 6.25 mg 11/24/16 22:00 11/30/16 09:44 Coreg - PO 6.25 mg BID SUBHA Administration Docusate Sodium 300 mg 11/29/16 22:00 11/29/16 21:42 Colace - PO 300 mg HS SUBHA Administration Finasteride 5 mg 11/25/16 10:00 11/30/16 09:44 Proscar - PO 5 mg DAILY SUBHA Administration Montelukast Sodium 10 mg 11/25/16 22:00 11/29/16 21:33 Singulair - PO 10 mg HS SUBHA Administration Pantoprazole Sodium 40 mg 11/27/16 22:00 11/30/16 09:44 Protonix - PO 40 mg BID SUBHA Administration Phenol/Menthol 1 spray 11/27/16 13:13 Chloraseptic - MM Q6HPO PRN SORE THROAT Polyethylene Glycol 17 gm 11/29/16 13:00 11/30/16 09:44 Miralax (For Daily Use) - PO 17 gm DAILY SUBHA Administration Tamsulosin HCl 0.4 mg 11/25/16 08:30 11/30/16 08:19 Flomax - PO 0.4 mg DAILY@0830 SUBHA Administration Ursodiol 300 mg 11/24/16 22:00 11/30/16 09:44 Actigal - PO 300 mg BID SUBHA Administration Impression 1. CKD with stable renal function 2. hx of CRISS in the past 3. choledocholithiasis 4. CAD 5. hx of Renal Cell Cancer s/p nephroectomy 6. aortic stenosis Plan - pt tolerated dose of lasix - will need outpt follow up - abx per ID - will likely need diuretics at home, pt says he is out of his water pills. Asked family to bring in meds for review. - will follow Dr Medina
== END 2016-11-30 15:17 | disposition home or self-care (01) | DRG 863 ==
LOC: JER 09:15 → JERBED 12:17 → J6S 14:36
PROVIDERS: ADMIT Internal Medicine; ATTEND Internal Medicine
PROC: 30233N1 Transfusion of Nonautologous Red Blood Cells into Peripheral Vein, Percutaneous Approach (ICD-10-PCS; principal; 2016-11-26)
DX: T81.4XXA Infection following a procedure, initial encounter (principal); K80.32 Calculus of bile duct with acute cholangitis without obstruction; N17.9 Acute kidney failure, unspecified; N18.4 Chronic kidney disease, stage 4 (severe); R71.0 Precipitous drop in hematocrit; A49.9 Bacterial infection, unspecified; Y83.8 Other surgical procedures as the cause of abnormal reaction of the patient, or of later complication, without mention of misadventure at the time of the procedure; E78.5 Hyperlipidemia, unspecified; I12.9 Hypertensive chronic kidney disease with stage 1 through stage 4 chronic kidney disease, or unspecified chronic kidney disease; J44.9 Chronic obstructive pulmonary disease, unspecified; D69.6 Thrombocytopenia, unspecified; I44.7 Left bundle-branch block, unspecified; R74.0 Nonspecific elevation of levels of transaminase and lactic acid dehydrogenase [LDH]; I25.10 Atherosclerotic heart disease of native coronary artery without angina pectoris; N40.0 Benign prostatic hyperplasia without lower urinary tract symptoms; I25.2 Old myocardial infarction; R49.0 Dysphonia; R13.19 Other dysphagia; N35.8 Other urethral stricture; K59.09 Other constipation; K57.90 Diverticulosis of intestine, part unspecified, without perforation or abscess without bleeding; Z95.5 Presence of coronary angioplasty implant and graft; Z90.5 Acquired absence of kidney; Z95.2 Presence of prosthetic heart valve; Z85.53 Personal history of malignant neoplasm of renal pelvis
CPT/HCPCS: 36415; 36430; 71010-TC; 74150-TC; 74181-TC; 76705-TC; 80048; 80053; 80076; 81003; 81015; 82150; 82248; 82272; 82570; 82607; 82728; 82746; 82803; 82977; 83010; 83540; 83550; 83605; 83615; 83690; 84443; 84484; 85025; 85027; 85044; 85362; 85384; 85610; 85730; 86022; 86140; 86850; 86900; 86901; 86922; 87040; 87186; 93005; 93010; 97116-GP; 97161-GP; 99285-25; P9038; P9058

== ENCOUNTER 2016-12-11 13:11 | Inpatient (IN) | payer OTHER ==
[2016-12-11] MEDS ORDERED: SODIUM CHLORIDE 500 ML IV STA (13:42)
--- NOTE | 2016-12-11 13:47 | PDOC ---
History of Present Illness - General Chief Complaint: Syncope/Near Syncope Stated Complaint: SYNCOPE Time Seen by Provider: 12/11/16 13:39 History Source: Patient, Family Exam Limitations: No Limitations - History of Present Illness Initial Comments: This is an 86 yom with h/o recent cholecystectomy (August 2016) complicated by choledocholithiasis and CBD stenting for suspected cholangitis (removed 11/23/16, currently on Flagyl-Levaquin), CT with stenting, aortic stenosis s/p TAVR with porcine valve (on ASA and Plavix), CKD, renal cancer s/p nephrectomy, UTI and urethral structures s/p balloon dilation. 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 The family additionally notes increase leg swelling (both sides) recently, shortness of breath today, and increased stress level in the past few weeks. Past History - Past Medical History Allergies/Adverse Reactions: Allergies Allergy/AdvReac Type Severity Reaction Status Date / Time No Known Allergies Allergy Verified 12/11/16 13:17 Home Medications: Ambulatory Orders Finasteride 5 mg PO DAILY 05/13/16 Carvedilol [Coreg] 6.25 mg PO BID tablet 10/03/16 Ursodiol 300 mg PO BID capsule 10/03/16 Montelukast Sodium [Singulair] 10 mg PO DAILY tablet 11/07/16 Atorvastatin Calcium 10 mg PO DAILY tablet 11/09/16 Tamsulosin HCl [Flomax -] 0.4 mg PO DAILY 11/23/16 Ursodiol [Actigall] 300 mg PO BID #180 capsule 11/23/16 Docusate Sodium [Colace -] 300 mg PO HS #21 cap 11/30/16 Pantoprazole Sodium [Protonix -] 40 mg PO DAILY #30 tab 11/30/16 Phenol [Chloraseptic -] 1 spray MM Q6HPO PRN #1 bottle 11/30/16 Polyethylene Glycol 3350 [Miralax 119 gm Btl -] 17 gm PO DAILY #1 bottle Carvedilol [Coreg -] 6.25 mg PO BID #60 tablet 12/02/16 Pantoprazole Sodium 40 mg PO DAILY 12/04/16 Anemia: No Cancer: Yes (R.KIDNEY, WITH RIGHT NEPHRECTOMY) Cardiac Disorders: Yes (valve disease) COPD: Yes Disorders: Yes (URINARY RETENTION,BPH) HTN: Yes Hypercholesterolemia: Yes - Surgical History Cardiac Surgery: Yes (Angioplasty with stent,AORTIC VALVE SX) - Immunization History Immunization Up to Date: Yes - Suicide/Smoking/Psychosocial Hx Smoking History: Never smoked Have you smoked in the past 12 months: No Hx Alcohol Use: No Drug/Substance Use Hx: No Substance Use Type: None Hx Substance Use Treatment: No Cardiac Specific PMH - Complaint Specific PMHX Pacemaker: No Review of Systems - Review of Systems Able to Perform ROS?: Yes Constitutional: Yes: Weakness. No: Chills, Fever, Unexplained wgt Loss HEENTM: No: Nose Congestion, Throat Pain Respiratory: Yes: Shortness of Breath. No: Cough Cardiac (ROS): No: Chest Pain, Palpitations ABD/GI: No: Constipated, Diarrhea, Nausea, Vomiting : No: Burning, Dysuria Musculoskeletal: No: Back Pain, Neck Pain Integumentary: No: Bruising, Rash Neurological: No: Headache, Numbness, Tingling, Weakness, Dizziness Endocrine: No: Unexplained Weight Gain, Unexplained Weight Loss *Physical Exam - Vital Signs Last Vital Signs Temp Pulse Resp BP Pulse Ox 99.0 F 70 18 114/51 100 12/11/16 16:56 12/11/16 16:36 12/11/16 16:36 12/11/16 16:36 12/11/16 16:36 - Physical Exam General Appearance: Yes: Appropriately Dressed, Mild Distress, Other (pale- appearing older male who is hard of hearing but conversive and answers questions appropriately) HEENT: positive: EOMI, Normal Voice, Hearing Grossly Normal. negative: Scleral Icterus (R), Scleral Icterus (L), Nasal Congestion Neck: positive: Trachea midline, Supple. negative: Tender, Rigid Respiratory/Chest: positive: Lungs Clear, Rapid RR, Crackles, Wheezing. negative: Stridor Cardiovascular: positive: Regular Rhythm, Regular Rate, Edema (bilateral lower extremities with 2+ pitting edema, old healing ecchymoses noted to LLE), Systolic Murmur (2/6 at LUSB) Gastrointestinal/Abdominal: positive: Normal Bowel Sounds, Soft, Other (large melena stool noted in diaper, healing ecchymosis noted overlying RUQ/right lower ribs). negative: Tender, Organomegaly, Pulsatile Mass, Guarding Musculoskeletal: positive: Normal Inspection. negative: Decreased Range of Motion, Vertebral Tenderness Extremity: positive: Normal Capillary Refill, Normal Inspection, Normal Range of Motion, Other (good strength in BUE (able to pull trunk up to sitting position on hospital bed)). negative: Tender, Cyanosis Integumentary: positive: Normal Color, Dry, Warm, Pale, Other (scattered healing ecchymoses LLE, venous stasis changes BLE). 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 negative: Facial Droop, Numbness, Sensory Deficit, Confused, Disoriented Heart Score/ECG Review - History History: Slightly suspicious - Electrocardiogram EKG: Non specific repolarization disturbance - Age Age: >/= 65 - Risk Factors Risk Factors Heart Score: Yes Hx Hypercholesterolemia, Yes Hx Hypertension Based on the list above the patient has:: 1-2 risk factors - Troponin Troponin: </= normal limit - Score Heart Score - Total: 4 #1 ECG reviewed & interpreted by me at: 14:56 Sinus rhythm with rate of 75, LBBB same as prior EKG. ED Treatment Course - LABORATORY CBC & Chemistry Diagram: 12/11/16 15:34 12/11/16 15:34 - ADDITIONAL ORDERS Additional order review: Laboratory Results 12/11/16 12/11/16 12/11/16 15:34 15:34 15:34 PT with INR INR PTT (Actin FS) VBG pH POC VBG pCO2 POC VBG pO2 Mixed VBG HCO3 Sodium Potassium Chloride Carbon Dioxide Anion Gap BUN Creatinine Creat Clearance w eGFR Random Glucose Lactic Acid 1.5 Calcium Total Bilirubin AST ALT Alkaline Phosphatase Creatine Kinase Troponin I B-Natriuretic Peptide 3263.14 H Total Protein Albumin Blood Type A POSITIVE Antibody Screen Negative Crossmatch See Detail 12/11/16 12/11/16 12/11/16 15:34 15:34 15:34 PT with INR 12.90 H INR 1.17 H PTT (Actin FS) 26.8 L VBG pH 7.41 POC VBG pCO2 43.6 POC VBG pO2 29.3 D Mixed VBG HCO3 27.1 H Sodium 138 Potassium 4.4 Chloride 102 Carbon Dioxide 27 Anion Gap 9 BUN 48 H D Creatinine 2.1 H D Creat Clearance w eGFR 29.95 Random Glucose 95 D Lactic Acid Calcium 8.2 L Total Bilirubin 0.5 AST 17 D ALT 11 L D Alkaline Phosphatase 69 D Creatine Kinase 75 Troponin I 0.04 D B-Natriuretic Peptide Total Protein 4.8 L Albumin 2.4 L Blood Type Antibody Screen Crossmatch 12/11/16 15:34 RBC 1.91 L D MCV 97.3 H MCHC 34.1 RDW 16.9 H MPV 9.0 Neutrophils % 82.7 D Lymphocytes % 8.7 D Monocytes % 6.7 Eosinophils % 1.4 Basophils % 0.5 - RADIOLOGY Radiology Studies Ordered: Category Date Time Status CHEST X-RAY PORTABLE* [RAD] Stat Radiology 12/11/16 13:43 Completed CXR shows prominent mediastinum but no acute cardiopulmonary processes, no interval change from prior CXR. - Medications Given in the ED: ED Medications Discontinued Medications Generic Name Dose Route Start Last Admin Trade Name Freq PRN Reason Stop Dose Admin Sodium Chloride 500 mls @ 1,000 mls/hr 12/11/16 13:42 12/11/16 16:10 Normal Saline - IV 12/11/16 14:11 1,000 mls/hr ASDIR STA Administration Pantoprazole Sodium 80 mg/ 100 mls @ 200 mls/hr 12/11/16 16:06 12/11/16 16:36 Sodium Chloride IVPB 12/11/16 16:35 200 mls/hr ONCE ONE Administration Medical Decision Making - Medical Decision Making 86 yom with recent cholecystectomy c/b choledocholithiasis, stenting, and cholangitis (on Lev-Flagyl now). Presents with generalized weakness, incr BLE edema, SOB today. On exam he is hypotensive initially (systolic in 80s), crackles on lung exam, 2/ 6 systolic murmur, BLE 2+ pitting edema. EKG with old LBBB and otherwise no acute change. CXR is unchanged from prior. Pt has a large bowel movement of melena as IV is being placed. 2 units blood ordered from blood bank. Pt is given 1 L bolus of NS. Blood labs are sent and resulted. Labs notable for Hgb 6.3, BNP >3000. ICU and hospitalist agree with plan for admission to ICU. After IVF bolus Pt's systolic blood pressure is improved to mid-110s. Blood transfusion is begun. Care is signed out to oncoming team. *DC/Admit/Observation/Transfer Diagnosis at time of Disposition: GI (gastrointestinal hemorrhage) Qualifiers: GI bleed type/associated pathology: melena Qualified Code(s): K92.1 - Melena Anemia Qualifiers: Anemia type: unspecified type Qualified Code(s): D64.9 - Anemia, unspecified - Discharge Dispostion Condition at time of disposition: Guarded Admit: Yes Decision to Admit order Date/Time: Decision to Admit Order Category Date Time Status Decision to Admit to Hospital Routine Admission 12/11/16 16:55 Active - Referrals Referrals: Melvin Goff MD [Primary Care Provider] -
--- NOTE | 2016-12-11 15:05 | PDOC ---
Attending Attestation - Resident Resident Name: Francheska Rose - ED Attending Attestation I have performed the following: I have examined & evaluated the patient, The case was reviewed & discussed with the resident, I agree w/resident's findings & plan, Exceptions are as noted - HPI HPI: 12/11/16 15:03 86-year-old male with extensive recent medical history and hospitalizations complicated by ascending cholangitis status post cholecystectomy, on antibiotics now with near syncope in the setting of progressive generalized weakness. - Physicial Exam PE: 12/11/16 15:03 Afebrile, O2 sat notably 93% on room air, improved 100% on nonrebreather Pale, generally weak appearing Alert and conversant Abdomen is soft Bilateral edema is chronic - Critical Care Time Total Critical Care Time: 70 Critical Care Statement: The care of this patient involved high complexity decision making to prevent further life threatening deterioration of the patient 's condition and/or to evaluate & treat vital organ system(s) failure or risk of failure. - Medical Decision Making 12/11/16 15:04 Patient seen and evaluated with the resident. I agree with the overall evaluation, assessment, and management with the following summary of visit: 86-year-old male presents with progressive weakness, near syncope. Differential is broad particularly given his recent past medical history, possible infectious versus metabolic versus cardiopulmonary etiology. Rule out severe anemia. Sepsis protocol initiated gentle IV fluid resuscitation Transfuse as needed Admission 12/11/16 16:30 had large melena rectal output in ED. PRBC and PPI ordered, GI Dr. Parks consulted, ICU Dr. Ledesma accepts for ICU. not on blood thinners requiring any reversal. HR remained in 70s, BP 95 systolic. Admit to [facility], covering [place]. Heart Score/ECG Review #1 General ECG Interpretation: Sinus Rhythm, Normal Rate, Normal Intervals (LBBB), No acute ischemic changes Compared to previous ECG there are: No significant change
[2016-12-11] MEDS ORDERED: PANTOPRAZOLE SODIUM 80 MG in SODIUM CHLORIDE 100 ML IVPB ONE (16:06)
[2016-12-11 16:19] LABS: BASOPHIL 0.5 % (0-2.0); EOSINOPHIL 1.4 % (0-4.5); MCH 33.2 pg (25.7-33.7); MCHC 34.1 g/dl (32.0-35.9); MEAN CELL VOLUME 97.3 fl (80-96); NEUTROPHILS 82.7 % (42.8-82.8); PLATELET COUNT 106 K/MM3 (134-434); RDW 16.9 % (11.9-15.9); WHITE BLOOD COUNT 6.1 K/mm3 (4.0-10.0)
[2016-12-11] MEDS ORDERED: PANTOPRAZOLE SODIUM 40 MG VIAL ONE (16:29)
[2016-12-11 16:43] LABS: INR 1.17 (0.82-1.09); PROTHROMBIN TIME (PATIENT) 12.9 SEC (9.98-11.88); VENOUS PH 7.41 (7.32-7.42)
[2016-12-11 16:44] LABS: VENOUS BLOOD GAS HCO3 27.1 meq/L (19-25)
[2016-12-11 16:45] LABS: ACTIVATED PTT 26.8 SECONDS (26.9-34.4)
[2016-12-11 16:47] LABS: ALBUMIN 2.4 g/dl (3.4-5.0); ANION GAP 9 (8-16); BILIRUBIN,TOTAL 0.5 mg/dL (0.2-1.0); CALCIUM 8.2 mg/dL (8.5-10.1); CO2 27 mmol/L (21-32); CREATININE 2.1 mg/dL (0.7-1.3); GLUCOSE,RANDOM 95 mg/dL (74-106); SGOT/AST 17 U/L (15-37); SGPT/ALT 11 U/L (12-78); TOT PROT 4.8 g/dl (6.4-8.2)
[2016-12-11 16:49] LABS: ALK PHOS 69 U/L (45-117); CPK 75 IU/L (39-308); TROPONIN I 0.04 ng/ml (0.00-0.05)
--- NOTE | 2016-12-11 17:52 | CON.GI ---
Consult Consult Specialty:: Gastroenterology Referred by:: Mi Moran M.D. Reason for Consultation:: GI bleeding - History of Present Illness Chief Complaint: Progressive weakness with exertion leading to a near syncopal spell at home today History of Present Illness: 86M has noted worsening dyspnea on exertion leading to a near syncopal spell at home. His nursing home director denies loss of consciousness and caught him before he fell. Blane denies chest or abdominal pain. He had brown vomitus at home. In the ER he had a large black BM. He had bleeding following his recent ERCP and sphincterotomy to extract residual CBD stones and required blood transfusions. EGD was deferred when the bleeding stopped and decision was made not to resume his clopidrogel. His shows me a medication list that suggests that his clopidrogel was resumed at home. 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 He was taking pantoprazole at home. He presented with sepsis due to ascending cholangitis in 08/08 when I placed a CBD stent while he was under Plavix. His course was complicated by DIC and renal failure requiring temporary dialysis. I subsequently did an ERCP to remove stones which splintered on extraction and required multiple balloon sweeps. A stent was placed when the sphincterotomy swelled. he had a cholecystectomy and was eventually discharged. I did an elective ERCP on 11/23/16 when I had to extend his sphincterotomy to remove residual stones. He was admitted the next day for hematemesis and jaundice. The jaundice resolved suggesting it was due to sphincterotomy swelling. The bleeding was assumed to be from his sphincterotomy site and resolved with PPI therapy and after several transfusions. An EGD was not undertaken as there was concern about pharyngeal swelling and bleeding form the site of ET and ERCP tube trauma. - History Source History Provided By: Patient, Family Member, Medical Record Limitations to Obtaining History: Clinical Condition - Past Medical History Cardio/Vascular: Yes: Aortic Stenosis (Post TAVR at [facility] in 2015), CAD (s/p cardiac stent/ PCI 1995), HTN, Hyperlipdemia Gastrointestinal: Yes: Diverticulosis Hepatobiliary: Yes: Cholelithiasis, Choledocholithiasis (ERCP x 3 with stent insertion and removal) Renal/: Yes: Renal Failure (required dialysis in 08/08 following sepsis with ATN), Renal Inusuff, Cancer (Renal CA with right nephrectomy), Renal Calculi, Other (urethral stricture s/p cystoscopy, nephrectomy for RCC) Musculoskeletal: Yes: Other (DJD) - Past Surgical History Past Surgical History: Yes: Cholecystectomy, Nephrectomy (right nephrectomy for cancer 12/08), Stent (biliary stent 08/08, removed 12/09), Valve Replacement (TAVR) - Alcohol/Substance Use Hx Alcohol Use: No History of Substance Use: reports: None - Smoking History Smoking history: Never smoked Have you smoked in the past 12 months: No - Social History Usual Living Arrangement: With Spouse ADL: Independent 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 Place of : [facility] History of Recent Travel: No Home Medications - Allergies Allergies/Adverse Reactions: Allergies Allergy/AdvReac Type Severity Reaction Status Date / Time No Known Allergies Allergy Verified 12/11/16 13:17 - Home Medications Home Medications: Ambulatory Orders Finasteride 5 mg PO DAILY 05/13/16 Carvedilol [Coreg] 6.25 mg PO BID tablet 10/03/16 Ursodiol 300 mg PO BID capsule 10/03/16 Montelukast Sodium [Singulair] 10 mg PO DAILY tablet 11/07/16 Atorvastatin Calcium 10 mg PO DAILY tablet 11/09/16 Tamsulosin HCl [Flomax -] 0.4 mg PO DAILY 11/23/16 Ursodiol [Actigall] 300 mg PO BID #180 capsule 11/23/16 Docusate Sodium [Colace -] 300 mg PO HS #21 cap 11/30/16 Pantoprazole Sodium [Protonix -] 40 mg PO DAILY #30 tab 11/30/16 Phenol [Chloraseptic -] 1 spray MM Q6HPO PRN #1 bottle 11/30/16 Polyethylene Glycol 3350 [Miralax 119 gm Btl -] 17 gm PO DAILY #1 bottle Carvedilol [Coreg -] 6.25 mg PO BID #60 tablet 12/02/16 Pantoprazole Sodium 40 mg PO DAILY 12/04/16 Family Disease History - Family Disease History Family Disease History: Other: Father ( 80's unclear cause), Mother ( 80 's CVA/[place]), Brother (1 brother CHF, 1 brother stomach cancer) Review of Systems - Review of Systems Constitutional: reports: Weakness Eyes: reports: Blurred Vision HENT: reports: No Symptoms Neck: reports: No Symptoms Cardiovascular: reports: Palpitations, Shortness of Breath Respiratory: reports: Exercise Intolerance Gastrointestinal: reports: Melena, Vomiting Blood Musculoskeletal: reports: Joint Pain Physical Exam-GI Vital Signs: Vital Signs Temperature 99.0 F 12/11/16 16:56 Pulse Rate 70 12/11/16 16:36 Respiratory Rate 18 12/11/16 16:36 Blood Pressure 114/51 12/11/16 16:36 O2 Sat by Pulse Oximetry (%) 100 12/11/16 16:36 Laboratory Tests 12/11/16 12/11/16 12/11/16 15:34 15:34 15:34 WBC 6.1 RBC 1.91 L D Hgb 6.3 L* D Hct 18.6 L D MCV 97.3 H Plt Count 106 L INR 1.17 H BUN 48 H D Creatinine 2.1 H D Total Bilirubin 0.5 AST 17 D ALT 11 L D Alkaline Phosphatase 69 D Creatine Kinase 75 B-Natriuretic Peptide Albumin 2.4 L 12/11/16 15:34 WBC RBC Hgb Hct MCV Plt Count INR BUN Creatinine Total Bilirubin AST ALT Alkaline Phosphatase Creatine Kinase B-Natriuretic Peptide 3263.14 H Albumin Current Medications Generic Name Dose Route Start Last Admin Trade Name Freq PRN Reason Stop Dose Admin Chlorhexidine Gluconate 1 applic 12/11/16 22:00 Hibiclens For Decolonization - TP HS SUBHA Pantoprazole Sodium 80 mg/ 100 mls @ 10 mls/hr 12/11/16 18:00 Sodium Chloride IVPB Q10H SUBHA 8 MG/HR Mupirocin 1 applic 12/11/16 22:00 Bactroban Ointment (For Decolonization) - NS 12/16/16 21:59 BID SUBHA CBC,CMP WBC 6.1 K/mm3 (4.0-10.0) 12/11/16 15:34 RBC 1.91 M/mm3 (4.00-5.60) L D 12/11/16 15:34 Hgb 6.3 GM/dL (11.7-16.9) L* D 12/11/16 15:34 Hct 18.6 % (35.4-49) L D 12/11/16 15:34 MCV 97.3 fl (80-96) H 12/11/16 15:34 MCH 33.2 pg (25.7-33.7) 12/11/16 15:34 MCHC 34.1 g/dl (32.0-35.9) 12/11/16 15:34 RDW 16.9 % (11.9-15.9) H 12/11/16 15:34 Plt Count 106 K/MM3 (134-434) L 12/11/16 15:34 MPV 9.0 fl (7.5-11.1) 12/11/16 15:34 Neutrophils % 82.7 % (42.8-82.8) D 12/11/16 15:34 Lymphocytes % 8.7 % (8-40) D 12/11/16 15:34 Monocytes % 6.7 % (3.8-10.2) 12/11/16 15:34 Eosinophils % 1.4 % (0-4.5) 12/11/16 15:34 Basophils % 0.5 % (0-2.0) 12/11/16 15:34 Sodium 138 mmol/L (136-145) 12/11/16 15:34 Potassium 4.4 mmol/L (3.5-5.1) 12/11/16 15:34 Chloride 102 mmol/L (98-107) 12/11/16 15:34 Carbon Dioxide 27 mmol/L (21-32) 12/11/16 15:34 Anion Gap 9 (8-16) 12/11/16 15:34 BUN 48 mg/dL (7-18) H D 12/11/16 15:34 Creatinine 2.1 mg/dL (0.7-1.3) H D 12/11/16 15:34 Creat Clearance w eGFR 29.95 (>60) 12/11/16 15:34 Random Glucose 95 mg/dL (74-106) D 12/11/16 15:34 Lactic Acid 1.5 mmol/L (0.4-2.0) 12/11/16 15:34 Calcium 8.2 mg/dL (8.5-10.1) L 12/11/16 15:34 Total Bilirubin 0.5 mg/dL (0.2-1.0) 12/11/16 15:34 AST 17 U/L (15-37) D 12/11/16 15:34 ALT 11 U/L (12-78) L D 12/11/16 15:34 Alkaline Phosphatase 69 U/L (45-117) D 12/11/16 15:34 Creatine Kinase 75 IU/L (39-308) 12/11/16 15:34 Troponin I 0.04 ng/ml (0.00-0.05) D 12/11/16 15:34 B-Natriuretic Peptide 3263.14 pg/ml (5-450) H 12/11/16 15:34 Total Protein 4.8 g/dl (6.4-8.2) L 12/11/16 15:34 Albumin 2.4 g/dl (3.4-5.0) L 12/11/16 15:34 Constitutional: Yes: Anxious, Pallor Eyes: Yes: Conjunctiva Clear HENT: Yes: Atraumatic Neck: Yes: Supple Cardiovascular: Yes: Regular Rate and Rhythm, Murmur (2/6 YANDY) Respiratory: Yes: CTA Bilaterally Gastrointestinal Inspection: Yes: Scars (healed laparoscopic incisions) ...Auscultate: Yes: Hyperactive Bowel Sounds ...Palpate: Yes: Soft, Other (nontender) ...Percussion: Yes: Tympanitic ...Rectal Exam: Yes: Guaiac Positive (red tinged melena), Sphincter Tone Poor Labs: INR, PTT INR 1.17 (0.82-1.09) H 12/11/16 15:34 Assessment/Plan The ground emesis and melena suggests an upper GI source of bleeding. I have therefore advised an EGD after blood and fluid resuscitation. I have informed Blane and his of the potential risks of perforation and hemorrhage that can arise during endoscopy. He has granted an informed consent. I have scheduled it for the AM. I have discussed khadijah case with the residency staff and advised blood transfusion with lasix after the 2nd unit and a PPI drip. Will refrain from an NG tube as he is on plavix and had suspected ET and ERCP tube trauma just 3 weeks ago. His LFTs are WNL and I believe that his duct is finally cleared of stones .
--- NOTE | 2016-12-11 18:15 | PN ---
Teaching Attending Note Name of Resident: Dominguez Lawrence ATTENDING PHYSICIAN STATEMENT I saw and evaluated the patient. I reviewed the resident's note and discussed the case with the resident. I agree with the resident's findings and plan as documented. SUBJECTIVE: Patient is a 86yo male with PMHx of choledocholithiasis with acute cholangitis and E.coli bacteremia- s/p ERCP, stone removal, CBD stent removal 11/23. Today the patient presentsd with Hemoglobin of 6.6. as per patient he felt lightheaded at home which lead him to a fall while he was walking from his bedroom to the bathroom with his walker and fell down on his buttocks. Denies any head injury , no headache, or shortness of breath. OBJECTIVE: Vital Signs Temperature 99.0 F 12/11/16 16:56 Pulse Rate 70 12/11/16 16:36 Respiratory Rate 18 12/11/16 16:36 Blood Pressure 114/51 12/11/16 16:36 O2 Sat by Pulse Oximetry (%) 100 12/11/16 16:36 CBCD WBC 6.1 K/mm3 (4.0-10.0) 12/11/16 15:34 RBC 1.91 M/mm3 (4.00-5.60) L D 12/11/16 15:34 Hgb 6.3 GM/dL (11.7-16.9) L* D 12/11/16 15:34 Hct 18.6 % (35.4-49) L D 12/11/16 15:34 MCV 97.3 fl (80-96) H 12/11/16 15:34 MCHC 34.1 g/dl (32.0-35.9) 12/11/16 15:34 RDW 16.9 % (11.9-15.9) H 12/11/16 15:34 Plt Count 106 K/MM3 (134-434) L 12/11/16 15:34 MPV 9.0 fl (7.5-11.1) 12/11/16 15:34 CMP Sodium 138 mmol/L (136-145) 12/11/16 15:34 Potassium 4.4 mmol/L (3.5-5.1) 12/11/16 15:34 Chloride 102 mmol/L (98-107) 12/11/16 15:34 Carbon Dioxide 27 mmol/L (21-32) 12/11/16 15:34 Anion Gap 9 (8-16) 12/11/16 15:34 BUN 48 mg/dL (7-18) H D 12/11/16 15:34 Creatinine 2.1 mg/dL (0.7-1.3) H D 12/11/16 15:34 Creat Clearance w eGFR 29.95 (>60) 12/11/16 15:34 Random Glucose 95 mg/dL (74-106) D 12/11/16 15:34 Calcium 8.2 mg/dL (8.5-10.1) L 12/11/16 15:34 Total Bilirubin 0.5 mg/dL (0.2-1.0) 12/11/16 15:34 AST 17 U/L (15-37) D 12/11/16 15:34 ALT 11 U/L (12-78) L D 12/11/16 15:34 Alkaline Phosphatase 69 U/L (45-117) D 12/11/16 15:34 Total Protein 4.8 g/dl (6.4-8.2) L 12/11/16 15:34 Albumin 2.4 g/dl (3.4-5.0) L 12/11/16 15:34 CARDIAC ENZYMES Creatine Kinase 75 IU/L (39-308) 12/11/16 15:34 Troponin I 0.04 ng/ml (0.00-0.05) D 12/11/16 15:34 Current Medications Generic Name Dose Route Start Last Admin Trade Name Nicholasq PRN Reason Stop Dose Admin Chlorhexidine Gluconate 1 applic 12/11/16 22:00 Hibiclens For Decolonization - TP HS SUBHA Pantoprazole Sodium 80 mg/ 100 mls @ 10 mls/hr 12/11/16 18:00 Sodium Chloride IVPB Q10H SUBHA 8 MG/HR Mupirocin 1 applic 12/11/16 22:00 Bactroban Ointment (For Decolonization) - NS 12/16/16 21:59 BID [facility] Home Medications Medication Instructions Recorded Finasteride 5 mg PO DAILY 05/13/16 Carvedilol [Coreg] 6.25 mg PO BID tablet 10/03/16 Ursodiol 300 mg PO BID capsule 10/03/16 Montelukast Sodium [Singulair] 10 mg PO DAILY tablet 11/07/16 Atorvastatin Calcium 10 mg PO DAILY tablet 11/09/16 Tamsulosin HCl [Flomax -] 0.4 mg PO DAILY 11/23/16 Ursodiol [Actigall] 300 mg PO BID #180 capsule 11/23/16 Docusate Sodium [Colace -] 300 mg PO HS #21 cap 11/30/16 Pantoprazole Sodium [Protonix -] 40 mg PO DAILY #30 tab 11/30/16 Phenol [Chloraseptic -] 1 spray MM Q6HPO PRN #1 bottle 11/30/16 Polyethylene Glycol 3350 [Miralax 17 gm PO DAILY #1 bottle 11/30/16 119 gm Btl -] Carvedilol [Coreg -] 6.25 mg PO BID #60 tablet 12/02/16 Pantoprazole Sodium 40 mg PO DAILY 12/04/16 PE: as per resident's notes AAOx3, looks very pale CVS: S1S2 positive, YANDY 2/ ext: b/l edema L(3+)>R 2plus Neuro: AAOx3 ASSESSMENT AND PLAN: Patient is 86 year old man with a history of HTN, CAD, [place], cardiac stent, , TAVR, right nephrectomy, BPH, urethral strictures, presented with Hemoglobin of 6.6. as per patient he felt lightheaded at home which lead him to a fall while he was walking from his bedroom to the bathroom with his walker and fell down on his buttocks. Denies any head injury , no headache, or shortness of breath. # Acute GIB r/o Upper vs lower. for consult, type and screen for 3 units total , transfuse , give lasix prior to transfusion and in b/t transfusion admit in ICu. repeat h/h 4 hrs post transfusion, EGD in am as per GI # CKD stable. # Hx of CAD, history of WA, stent-cont to hold plavix since patient is actively bleeding. hld po meds for now, since patient is npo , Cardio consult Dr. Carmen # , history of TAVR # HTN- hold Coreg, IV lopressor instead # History of renal cancer, right nephrectomy # BPH- hold Flomax, Proscar DVT Px: can't anticoagulate since having active bleeding. Posiible EGD in am critical care time of 40 minutes
--- NOTE | 2016-12-11 18:58 | HP ---
CHIEF COMPLAINT: lightheadedness and fall PCP: Dr. Goff GI: Dr. Parks Surgery: Dr. Weems Cardiology: Dr. Hays HISTORY OF PRESENT ILLNESS: 86M w/ extensive PMH including choledocholithiasis and cholangitis, most recently 11/24 s/p ERCP and CBD stent removal, presenting with lightheadedness leading to a fall. Pt reports that at noon today, he was walking from his bedroom to the bathroom with his walker, felt lightheaded, and fell down on his buttocks. He denies hitting his head or any LOC. He reports no complaints in the last few days. Pt has ASH at baseline, but denies any worsening SOB, any weakness, chest pain, nausea, emesis, constipation, diarrhea, abdominal pain, or dysuria. Of note, GI did an elective ERCP on 11/23/16 and had to extend his sphincterotomy to remove residual stones. Pt was admitted the next day for hematemesis and jaundice. The jaundice resolved suggesting it was due to sphincterotomy swelling. The bleeding was assumed to be from his sphincterotomy site and resolved with PPI therapy and after several transfusions. An EGD was not undertaken as there was concern about pharyngeal swelling and bleeding form the site of ET and ERCP tube trauma. Pt was instructed to discontinue plavix after last admission, unclear if he did or not. ER course was notable for: (1) melena (2) Hgb of 6.3 (down from 9.4 on discharge on 12/06) (3) Recent Travel: PAST MEDICAL HISTORY: HTN, Aortic Stenosis, Porcine Valve Replacement 08/2015 ( on [facility], Plavix), CAD (Stent, 96), R-Nephrectomy (Kidney Ca), Urethral Strictures s/p Dilation PAST SURGICAL HISTORY: R nephrectomy, urethral stricture dilation, TAVR Allergies No Known Allergies Allergy (Verified 12/11/16 13:17) HOME MEDICATIONS: Home Medications Medication Instructions Recorded Finasteride 5 mg PO DAILY 05/13/16 Carvedilol [Coreg] 6.25 mg PO BID tablet 10/03/16 Ursodiol 300 mg PO BID capsule 10/03/16 Montelukast Sodium [Singulair] 10 mg PO DAILY tablet 11/07/16 Atorvastatin Calcium 10 mg PO DAILY tablet 11/09/16 Tamsulosin HCl [Flomax -] 0.4 mg PO DAILY 11/23/16 Ursodiol [Actigall] 300 mg PO BID #180 capsule 11/23/16 Docusate Sodium [Colace -] 300 mg PO HS #21 cap 11/30/16 Pantoprazole Sodium [Protonix -] 40 mg PO DAILY #30 tab 11/30/16 Phenol [Chloraseptic -] 1 spray MM Q6HPO PRN #1 bottle 11/30/16 Polyethylene Glycol 3350 [Miralax 17 gm PO DAILY #1 bottle 11/30/16 119 gm Btl -] Carvedilol [Coreg -] 6.25 mg PO BID #60 tablet 12/02/16 Pantoprazole Sodium 40 mg PO DAILY 12/04/16 Social Hx: Smoking: Never Alcohol: None Drugs: None lives with spouse, employed- [employer] REVIEW OF SYSTEMS CONSTITUTIONAL: Absent: fever, chills, diaphoresis, generalized weakness, malaise, loss of appetite, weight change HEENT: Absent: rhinorrhea, nasal congestion, throat pain, throat swelling, difficulty swallowing, mouth swelling, ear pain, eye pain, visual changes CARDIOVASCULAR: Absent: chest pain, syncope, palpitations, irregular heart rate, Present: lightheadedness, peripheral edema RESPIRATORY: Absent: cough, wheezing, stridor, hemoptysis Present: SOB, ASH GASTROINTESTINAL: Absent: abdominal pain, abdominal distension, nausea, vomiting, diarrhea, constipation Present: melena GENITOURINARY: Absent: dysuria, frequency, urgency, hesitancy, hematuria, flank pain, genital pain MUSCULOSKELETAL: Absent: myalgia, arthralgia, joint swelling, back pain, neck pain SKIN: Absent: rash, itching, pallor HEMATOLOGIC/IMMUNOLOGIC: Absent: easy bleeding, easy bruising, lymphadenopathy, frequent infections ENDOCRINE: Absent: unexplained weight gain, unexplained weight loss, heat intolerance, cold intolerance NEUROLOGIC: Absent: headache, focal weakness or paresthesias, dizziness, unsteady gait, seizure, mental status changes, bladder or bowel incontinence PSYCHIATRIC: Absent: anxiety, depression, suicidal or homicidal ideation, hallucinations. PHYSICAL EXAMINATION Vitals: 98 114/51 70 18 100% on NR GENERAL: Awake, alert, and fully oriented, in no acute distress, pale appearing HEAD: Normal with no signs of trauma. EYES: Pupils equal, round and reactive to light, extraocular movements intact, sclera anicteric, conjunctiva clear. No lid lag. EARS, NOSE, THROAT: Ears normal, nares patent, oropharynx clear without exudates. Moist mucous membranes. NECK: Normal range of motion, supple without lymphadenopathy, JVD, or masses. LUNGS: Expiratory wheezing HEART: Regular rate and rhythm, normal S1 and S2 without murmur, rub or gallop. ABDOMEN: rash around umbilicus in skin fold. Large bulging mass on right side/ flank that is reducible. bowel sounds are normoactive, abdomen is NT, ND. MUSCULOSKELETAL: 2+ b/l LE edema NEUROLOGICAL: Cranial nerves II-XII intact. Normal speech. gait not observed. PSYCHIATRIC: Cooperative. Good eye contact. Appropriate mood and affect. Rectal: maroon appearing stool, +FOBT Laboratory Results - last 24 hr 12/11/16 12/11/16 12/11/16 15:34 15:34 15:34 WBC 6.1 RBC 1.91 L D Hgb 6.3 L* D Hct 18.6 L D MCV 97.3 H MCH 33.2 MCHC 34.1 RDW 16.9 H Plt Count 106 L MPV 9.0 Neutrophils % 82.7 D Lymphocytes % 8.7 D Monocytes % 6.7 Eosinophils % 1.4 Basophils % 0.5 PT with INR 12.90 H INR 1.17 H PTT (Actin FS) 26.8 L VBG pH 7.41 POC VBG pCO2 43.6 POC VBG pO2 29.3 D Mixed VBG HCO3 27.1 H Sodium Potassium Chloride Carbon Dioxide Anion Gap BUN Creatinine Creat Clearance w eGFR Random Glucose Lactic Acid Calcium Total Bilirubin AST ALT Alkaline Phosphatase Creatine Kinase Troponin I B-Natriuretic Peptide Total Protein Albumin Urine Color Urine Appearance Urine pH Urine Protein Urine Glucose (UA) Urine Ketones Urine Blood Urine Nitrite Urine Bilirubin Urine Urobilinogen Urine RBC Urine WBC Ur Epithelial Cells Urine Bacteria Urine Mucus Stool Occult Blood Blood Type Antibody Screen Crossmatch 12/11/16 12/11/16 12/11/16 15:34 15:34 15:34 WBC RBC Hgb Hct MCV MCH MCHC RDW Plt Count MPV Neutrophils % Lymphocytes % Monocytes % Eosinophils % Basophils % PT with INR INR PTT (Actin FS) VBG pH POC VBG pCO2 POC VBG pO2 Mixed VBG HCO3 Sodium 138 Potassium 4.4 Chloride 102 Carbon Dioxide 27 Anion Gap 9 BUN 48 H D Creatinine 2.1 H D Creat Clearance w eGFR 29.95 Random Glucose 95 D Lactic Acid 1.5 Calcium 8.2 L Total Bilirubin 0.5 AST 17 D ALT 11 L D Alkaline Phosphatase 69 D Creatine Kinase 75 Troponin I 0.04 D B-Natriuretic Peptide Total Protein 4.8 L Albumin 2.4 L Urine Color Urine Appearance Urine pH Urine Protein Urine Glucose (UA) Urine Ketones Urine Blood Urine Nitrite Urine Bilirubin Urine Urobilinogen Urine RBC Urine WBC Ur Epithelial Cells Urine Bacteria Urine Mucus Stool Occult Blood Blood Type A POSITIVE Antibody Screen Negative Crossmatch See Detail 12/11/16 12/11/16 12/11/16 15:34 18:30 22:36 WBC RBC Hgb Hct MCV MCH MCHC RDW Plt Count MPV Neutrophils % Lymphocytes % Monocytes % Eosinophils % Basophils % PT with INR INR PTT (Actin FS) VBG pH POC VBG pCO2 POC VBG pO2 Mixed VBG HCO3 Sodium Potassium Chloride Carbon Dioxide Anion Gap BUN Creatinine Creat Clearance w eGFR Random Glucose Lactic Acid Calcium Total Bilirubin AST ALT Alkaline Phosphatase Creatine Kinase Troponin I B-Natriuretic Peptide 3263.14 H Total Protein Albumin Urine Color Straw Urine Appearance Clear Urine pH 5.0 Urine Protein Negative Urine Glucose (UA) Negative Urine Ketones Negative Urine Blood 3+ H Urine Nitrite Negative Urine Bilirubin Negative Urine Urobilinogen Negative Urine RBC <1 Urine WBC <1 Ur Epithelial Cells Rare Urine Bacteria Rare Urine Mucus Rare Stool Occult Blood Positive Blood Type Antibody Screen Crossmatch 12/12/16 02:00 WBC 8.3 D RBC 2.45 L D Hgb 8.0 L D Hct 23.4 L D MCV 95.4 MCH 32.5 MCHC 34.1 RDW 16.0 H Plt Count 72 L D MPV 9.1 Neutrophils % 78.2 Lymphocytes % 8.6 Monocytes % 6.7 Eosinophils % 6.0 H D Basophils % 0.5 PT with INR INR PTT (Actin FS) VBG pH POC VBG pCO2 POC VBG pO2 Mixed VBG HCO3 Sodium Potassium Chloride Carbon Dioxide Anion Gap BUN Creatinine Creat Clearance w eGFR Random Glucose Lactic Acid Calcium Total Bilirubin AST ALT Alkaline Phosphatase Creatine Kinase Troponin I B-Natriuretic Peptide Total Protein Albumin Urine Color Urine Appearance Urine pH Urine Protein Urine Glucose (UA) Urine Ketones Urine Blood Urine Nitrite Urine Bilirubin Urine Urobilinogen Urine RBC Urine WBC Ur Epithelial Cells Urine Bacteria Urine Mucus Stool Occult Blood Blood Type Antibody Screen Crossmatch EKG: NSR CXR: questionable 5mm LLL nodule ASSESSMENT/PLAN: 86M w/ extensive PMH including choledocholithiasis and cholangitis, most recently 11/24 s/p ERCP and CBD stent removal, who presented with lightheadedness leading to a fall, found to have a Hgb of 6.3 and melena in the ED, admitted to the ICU for suspected upper GI bleed. #GI bleed- likely upper, r/o lower -Hgb of 6.3 -transfuse 3 units of PRBCs -lasix 20mg IV now and after 2 units of PRBCs -protonix drip -duonebs PRN -GI on board- Dr. Parks, informed medical team that he believes the bleeding is at site of sphincterotomy and CBD stent removal, plan is for EGD in am after adequate transfusion -surgery on board- Dr. Weems -cardiology on board- Dr. Hays -hematology on board- Dr. Garcia -f/u CBC after 3 units are given -f/u CBC, CMP, Mg, Ph, PT/PTT/INR in am -f/u UCx, Bcx, CXR -confirm most recent medication list with pt and #fall on buttocks -f/u pelvic XR in am #HTN -hold carvedilol, started on lopressor 5mg IV q6h (hold if systolic BP < 130 OR HR < 60) #CAD -hold atorvastatin #Urethral Strictures s/p Dilation -hold finasteride and flomax #Hx of choledocholithiasis -hold ursodiol #constipation -hold colace and miralax # #Porcine Valve Replacement #FEN/PPx -no fluids -electrolytes wnl -NPO -protonix drip -SCDs Dominguez Lawrence MD PGY1 Visit type - Emergency Visit Emergency Visit: Yes ED Registration Date: 12/11/16 Care time: The patient presented to the Emergency Department on the above date and was hospitalized for further evaluation of their emergent condition. - New Patient This patient is new to me today: Yes Date on this admission: 12/12/16 - Critical Care Critical Care patient: Yes Total Critical Care Time (in minutes): 40 Critical Care Statement: The care of this patient involved high complexity decision making to prevent further life threatening deterioration of the patient 's condition and/or to evaluate & treat vital organ system(s) failure or risk of failure.
--- NOTE | 2016-12-11 19:07 | HP ---
CHIEF COMPLAINT: Lightheaded and pre-syncope PCP: Dr. Melvin Goff HISTORY OF PRESENT ILLNESS: 86 yo M with PMhx of CAD(s/p stents), HTN, HLD, and recent hospitalization for sepsis 2/2 ascending cholangitis presents to ER with weakness and near syncope. At home he was ambulating with his walker when he felt weak and subsequently fell to floor. Denies palpitations, LOC, or head trauma. In ER he has a large black BM.He presented with sepsis due to ascending cholangitis in 08/08 when a CBD stent while he was under Plavix. His course was complicated by DIC and renal failure requiring temporary dialysis. An elective ERCP was done on 11/23/16 in which his sphincterotomy was extended to remove residual stones.At that time his plavix was stopped but it is unclear at this time if he has been receiving it at home. At this time he denies CP,HAN, palpitations, abd.pain, N/ V. ER course was notable for: (1)Hbg 6.3 BUN 45 (2)Large black BM (3)Fluid resuscitation. (4)EKG: NSR with LBBB( seen on previous EKG as well) , no st or t wave abnormalities. Recent Travel: Denies PAST MEDICAL HISTORY:Aortic Stenosis (Post TAVR at [facility] in 2015), CAD (s/p cardiac stent/ PCI 1995), HTN, Hyperlipdemia,Diverticulosis,Cholelithiasis, Renal Failure (required dialysis in 08/08 following sepsis with ATN), Renal Inusuff, Cancer (Renal CA with right nephrectomy), Renal Calculi Choledocholithiasis (ERCP x 3 with stent insertion and removal) PAST SURGICAL HISTORY:Cholecystectomy, Nephrectomy (right nephrectomy for cancer 12/08), Stent (biliary stent 08/08, removed 12/09), Valve Replacement (TAVR) Social History: Smoking:never smoked Alcohol:no Drugs: no Family History: Allergies No Known Allergies Allergy (Verified 12/11/16 13:17) HOME MEDICATIONS: Home Medications Medication Instructions Recorded Finasteride 5 mg PO DAILY 05/13/16 Carvedilol [Coreg] 6.25 mg PO BID tablet 10/03/16 Ursodiol 300 mg PO BID capsule 10/03/16 Montelukast Sodium [Singulair] 10 mg PO DAILY tablet 11/07/16 Atorvastatin Calcium 10 mg PO DAILY tablet 11/09/16 Tamsulosin HCl [Flomax -] 0.4 mg PO DAILY 11/23/16 Ursodiol [Actigall] 300 mg PO BID #180 capsule 11/23/16 Docusate Sodium [Colace -] 300 mg PO HS #21 cap 11/30/16 Pantoprazole Sodium [Protonix -] 40 mg PO DAILY #30 tab 11/30/16 Phenol [Chloraseptic -] 1 spray MM Q6HPO PRN #1 bottle 11/30/16 Polyethylene Glycol 3350 [Miralax 17 gm PO DAILY #1 bottle 11/30/16 119 gm Btl -] Carvedilol [Coreg -] 6.25 mg PO BID #60 tablet 12/02/16 Pantoprazole Sodium 40 mg PO DAILY 12/04/16 REVIEW OF SYSTEMS CONSTITUTIONAL: generalized weakness Absent: fever, chills, diaphoresis, , malaise, loss of appetite, weight change HEENT: Absent: rhinorrhea, nasal congestion, throat pain, throat swelling, difficulty swallowing, mouth swelling, ear pain, eye pain, visual changes CARDIOVASCULAR: Absent: chest pain, syncope, palpitations, irregular heart rate, lightheadedness , peripheral edema RESPIRATORY: Absent: cough, shortness of breath, dyspnea with exertion, orthopnea, wheezing, stridor, hemoptysis GASTROINTESTINAL:melena Absent: abdominal pain, abdominal distension, nausea, vomiting, diarrhea, constipation, , hematochezia GENITOURINARY: Absent: dysuria, frequency, urgency, hesitancy, hematuria, flank pain, genital pain MUSCULOSKELETAL: Absent: myalgia, arthralgia, joint swelling, back pain, neck pain SKIN: Absent: rash, itching, pallor HEMATOLOGIC/IMMUNOLOGIC: Absent: easy bleeding, easy bruising, lymphadenopathy, frequent infections ENDOCRINE: Absent: unexplained weight gain, unexplained weight loss, heat intolerance, cold intolerance NEUROLOGIC: Absent: headache, focal weakness or paresthesias, dizziness, unsteady gait, seizure, mental status changes, bladder or bowel incontinence PSYCHIATRIC: Absent: anxiety, depression, suicidal or homicidal ideation, hallucinations. PHYSICAL EXAMINATION Vital Signs - 24 hr 12/11/16 12/11/16 12/11/16 16:56 18:25 18:45 Temperature 99.0 F 97.5 F L 97.6 F Pulse Rate [ 74 74 Apical] Respiratory 18 21 Rate Blood Pressure 116/53 111/54 [Arm] O2 Sat by Pulse 100 100 Oximetry (%) GENERAL: Awake and alert. Lethargic HEAD: NC/AT EYES:PERRLA, EOMI, sclera pallor, conjunctiva clear. No lid lag. EARS, NOSE, THROAT: dry mucous membranes. NECK:supple, No jvd LUNGS: CTAB, No wheezes, and no crackles. No accessory muscle use. HEART: RRR, normal S1 and S2 , 2/6 YANDY ABDOMEN: Maroon stools found on rectal exam, FOBT (+),Soft, nontender, not distended, prior drainage site clean and dry, mild erythema. hyperactive BS+ MUSCULOSKELETAL: Normal range of motion at all joints. No bony deformities or tenderness. No CVA tenderness. UPPER EXTREMITIES: 2+ pulses, warm, well-perfused. No cyanosis. No clubbing. No peripheral edema. LOWER EXTREMITIES: 2+ pulses, warm, well-perfused. No calf tenderness. 2+ peripheral edema. NEUROLOGICAL: decreased hearing. Normal speech. gait no observed PSYCHIATRIC: Cooperative. Good eye contact.lethargic. SKIN: Warm, dry,, no rashes or lesions noted, normal capillary refill. Laboratory Results - last 24 hr 12/11/16 18:30 Stool Occult Blood Positive ASSESSMENT/PLAN: 86 yo M with PMhx of CAD(s/p stents), HTN, HLD, and recent hospitalization for sepsis 2/2 ascending cholangitis admitted to ICU for GI bleed. Problem List - Problem (1) GI (gastrointestinal hemorrhage) Assessment/Plan: * Likely Upper GI given melana; brisk bleed possible given physical exam findings of maroon stools * Admit to ICU * 2 units of PRBC ordered- will need to be transfused slowly and give lasix to avoid overload. * More blood may be need as there was maroon stools indicative of brisk bleed. * Will repeat H/H after second unit. * Seen by Dr. Parks for EGD in AM * Cardiology consult for clearance. * Surgery Dr. Weems on board. * Hematology on board for blood product management. Visit type - Emergency Visit Emergency Visit: Yes ED Registration Date: 12/11/16 Care time: The patient presented to the Emergency Department on the above date and was hospitalized for further evaluation of their emergent condition. - New Patient This patient is new to me today: Yes Date on this admission: 12/12/16 - Critical Care Critical Care patient: Yes Total Critical Care Time (in minutes): 42 Critical Care Statement: The care of this patient involved high complexity decision making to prevent further life threatening deterioration of the patient 's condition and/or to evaluate & treat vital organ system(s) failure or risk of failure.
[2016-12-11] MEDS ORDERED: FUROSEMIDE 40 MG/4 ML INJECTABLE VIAL IVPB ONE ×2 (19:12→23:00)
[2016-12-11] MEDS ORDERED: METOPROLOL TARTRATE 5 MG/5 ML VIAL IVPUSH SCH (20:00)
[2016-12-11] MEDS ORDERED: METOPROLOL TARTRATE 5 MG/5 ML VIAL ONE (20:13)
[2016-12-11] MEDS ORDERED: FUROSEMIDE 40 MG/4 ML INJECTABLE VIAL ONE (20:13)
--- NOTE | 2016-12-11 20:16 | EKG ---
Test Reason : Blood Pressure : / mmHG Vent. Rate : 075 BPM Atrial Rate : 075 BPM P-R Int : 186 ms QRS Dur : 168 ms QT Int : 456 ms P-R-T Axes : 063 -11 137 degrees QTc Int : 509 ms NORMAL SINUS RHYTHM LEFT BUNDLE BRANCH BLOCK ABNORMAL ECG WHEN COMPARED WITH ECG OF 25-NOV-2016 09:55, NO SIGNIFICANT CHANGE WAS FOUND REPEAT EKG IF CLINICALLY INDICATED Confirmed by SOPHIE SOTELO MD ([id number]) on 12/11/2016 8:16:08 PM Referred By: Confirmed By:SOPHIE SOTELO MD
--- NOTE | 2016-12-11 21:27 | CONSULT ---
Consult Consult Specialty:: Surgery Reason for Consultation:: GI bleed - History of Present Illness History of Present Illness: 86 male history of ascending cholangitis s/p cholecystectomy and stent s/p removal presents to the ER Brought by family for lethargy and weakness Found to have Hgb of 6.3 in ER Seen by GI Being transfused PRBC - History Source History Provided By: Patient, Family Member - Past Medical History Cardio/Vascular: Yes: Aortic Stenosis (Post TAVR at [facility] in 2015), CAD (s/p cardiac stent/ PCI 1995), HTN, Hyperlipdemia Gastrointestinal: Yes: Diverticulosis Hepatobiliary: Yes: Cholelithiasis, Choledocholithiasis (ERCP x 3 with stent insertion and removal) Renal/: Yes: Renal Failure (required dialysis in 08/08 following sepsis with ATN), Renal Inusuff, Cancer (Renal CA with right nephrectomy), Renal Calculi, Other (urethral stricture s/p cystoscopy, nephrectomy for RCC) Musculoskeletal: Yes: Other (DJD) - Past Surgical History Past Surgical History: Yes: Cholecystectomy, Nephrectomy (right nephrectomy for cancer 12/08), Stent (biliary stent 08/08, removed 12/09), Valve Replacement (TAVR) - Alcohol/Substance Use Hx Alcohol Use: No History of Substance Use: reports: None - Smoking History Smoking history: Never smoked Have you smoked in the past 12 months: No - Social History Usual Living Arrangement: With Spouse ADL: Independent 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 History of Recent Travel: No Home Medications - Allergies Allergies/Adverse Reactions: Allergies Allergy/AdvReac Type Severity Reaction Status Date / Time No Known Allergies Allergy Verified 12/11/16 13:17 - Home Medications Home Medications: Ambulatory Orders Finasteride 5 mg PO DAILY 05/13/16 Carvedilol [Coreg] 6.25 mg PO BID tablet 10/03/16 Ursodiol 300 mg PO BID capsule 10/03/16 Montelukast Sodium [Singulair] 10 mg PO DAILY tablet 11/07/16 Atorvastatin Calcium 10 mg PO DAILY tablet 11/09/16 Tamsulosin HCl [Flomax -] 0.4 mg PO DAILY 11/23/16 Ursodiol [Actigall] 300 mg PO BID #180 capsule 11/23/16 Docusate Sodium [Colace -] 300 mg PO HS #21 cap 09/08/17 Pantoprazole Sodium [Protonix -] 40 mg PO DAILY #30 tab 11/30/16 Phenol [Chloraseptic -] 1 spray MM Q6HPO PRN #1 bottle 11/30/16 Polyethylene Glycol 3350 [Miralax 119 gm Btl -] 17 gm PO DAILY #1 bottle Carvedilol [Coreg -] 6.25 mg PO BID #60 tablet 12/02/16 Pantoprazole Sodium 40 mg PO DAILY 12/04/16 Family Disease History - Family Disease History Family Disease History: Other: Father ( 80's unclear cause), Mother ( 80 's CVA/[place]), Brother (1 brother CHF, 1 brother stomach cancer) Review of Systems - Review of Systems Constitutional: denies: Fever Neck: reports: No Symptoms Cardiovascular: denies: Chest Pain Respiratory: denies: Cough Gastrointestinal: reports: Abdominal Pain, Melena. denies: Nausea Pain Intensity: 2 Physical Exam Vital Signs: Vital Signs Temperature 97 F L 12/11/16 19:37 Pulse Rate 72 12/11/16 19:37 Respiratory Rate 15 12/11/16 19:37 Blood Pressure 107/60 12/11/16 19:37 O2 Sat by Pulse Oximetry (%) 99 12/11/16 19:37 Constitutional: Yes: Anxious, Pallor Cardiovascular: Yes: WNL Respiratory: Yes: Regular Gastrointestinal: Yes: Soft, Tenderness. No: Tenderness, Rebound ...Rectal Exam: Yes: Other (+ Blood per rectum noted on ER bed) Neurological: Yes: Alert Assessment/Plan 86 male with GI bleed NPO IV fluids Hold all blood thinner/anticoagulation ICU care Transfuse PRBCs/FFP/Platelets as needed Serial H/H q 6 hours GI planning to scope in am
[2016-12-11] MEDS: PANTOPRAZOLE SODIUM 80 MG in SODIUM CHLORIDE 100 ML IVPB SCH (22:34)
[2016-12-11] MEDS ORDERED: PANTOPRAZOLE SODIUM 100 ML IVPB ONE (22:38)
[2016-12-11 22:44] LABS: URINE APPEARANCE CLEAR; URINE BILIRUBIN NEGATIVE (NEGATIVE); URINE BLOOD 3+ (NEGATIVE); URINE COLOR STRAW; URINE GLUCOSE (UA) NEGATIVE (NEGATIVE); URINE KETONE NEGATIVE (NEGATIVE); URINE LEUK ESTERASE NEGATIVE (NEGATIVE); URINE NITRITE NEGATIVE (NEGATIVE); URINE PROTEIN NEGATIVE (NEGATIVE); URINE UROBILINOGEN NEGATIVE mg/dL (0.2-1.0)
[2016-12-11 22:46] LABS: URINE BACTERIA RARE /hpf (NONE SEEN); URINE MUCUS RARE; URINE RBC <1 /hpf (0-3); URINE WBC <1 /hpf (3-5)
[2016-12-11] MEDS ORDERED: PHYTONADIONE 10 MG/1 ML AMP IVPB ONE (23:18)
[2016-12-11] MEDS ORDERED: DESMOPRESSIN ACETATE 4 MCG/ML AMP IVPB ONE ×2 (23:23→23:43)
[2016-12-11] MEDS ORDERED: ALBUTEROL SO4 0.083% IH SOL 2.5 MG/3 ML VIAL.NEB. NEB PRN (23:23)
--- NOTE | 2016-12-11 23:30 | CONSULT ---
Consult Consult Specialty:: PULM / CCM Referred by:: Dr. Margaux Denis Reason for Consultation:: GIB - History of Present Illness Chief Complaint: Dizzy History of Present Illness: Mr. Nunez is an 86 y/o man w/ HTN, HL, CAD, [place] w/ stents, s/p TAVR w/ porcine valve (on ASA and Plavix), CKD, renal CA s/p nephrectomy, UTI, and urethral structures s/p balloon dilation, multiple admits throughout this summer for choledocholithiasis and cholangitis now s/p ERCP, sphincterotomy, & cholecystectomy. Pt BIBA this AM c/o weakness & worsening lower extremity edema (for which his animal biologist Dr Vieyra started furosemide about a week ago). Today the pt reports feeling weak & experienced a "brown" vomitus at home. The ED reports a large black BM & a Hgb < 7.0, but no LA (1.5). The pt denies any CP N/V/D, abd pain, or dysuria. Of note, pt's last ERCP was on 11/23/16 where his sphincterotomy was extended in order to remove residual stones. The pt was re- admitted the very next day for hematemesis. W/u revealed bleeding m/l 2/2 his sphincterotomy site and it resolved w/ PPI therapy and several transfusions. - History Source History Provided By: Patient, Medical Record Limitations to Obtaining History: Clinical Condition - Past Medical History Cardio/Vascular: Yes: Aortic Stenosis (Post TAVR at [facility] in 2015), CAD (s/p cardiac stent/ PCI 1995), HTN, Hyperlipdemia Gastrointestinal: Yes: Diverticulosis Hepatobiliary: Yes: Cholelithiasis, Choledocholithiasis (ERCP x 3 with stent insertion and removal) Renal/: Yes: Renal Failure (required dialysis in 08/08 following sepsis with ATN), Renal Inusuff, Cancer (Renal CA with right nephrectomy), Renal Calculi, Other (urethral stricture s/p cystoscopy, nephrectomy for RCC) Musculoskeletal: Yes: Other (DJD) - Past Surgical History Past Surgical History: Yes: Cholecystectomy, Nephrectomy (right nephrectomy for cancer 12/08), Stent (biliary stent 08/08, removed 12/09), Valve Replacement (TAVR) - Alcohol/Substance Use Hx Alcohol Use: No History of Substance Use: reports: None - Smoking History Smoking history: Never smoked Have you smoked in the past 12 months: No - Social History Usual Living Arrangement: With Spouse ADL: Independent 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 History of Recent Travel: No Home Medications - Allergies Allergies/Adverse Reactions: Allergies Allergy/AdvReac Type Severity Reaction Status Date / Time No Known Allergies Allergy Verified 12/11/16 13:17 - Home Medications Home Medications: Ambulatory Orders Finasteride 5 mg PO DAILY 05/13/16 Carvedilol [Coreg] 6.25 mg PO BID tablet 10/03/16 Ursodiol 300 mg PO BID capsule 10/03/16 Montelukast Sodium [Singulair] 10 mg PO DAILY tablet 11/07/16 Atorvastatin Calcium 10 mg PO DAILY tablet 11/09/16 Tamsulosin HCl [Flomax -] 0.4 mg PO DAILY 11/23/16 Ursodiol [Actigall] 300 mg PO BID #180 capsule 11/23/16 Docusate Sodium [Colace -] 300 mg PO HS #21 cap 11/30/16 Pantoprazole Sodium [Protonix -] 40 mg PO DAILY #30 tab 11/30/16 Phenol [Chloraseptic -] 1 spray MM Q6HPO PRN #1 bottle 11/30/16 Polyethylene Glycol 3350 [Miralax 119 gm Btl -] 17 gm PO DAILY #1 bottle Carvedilol [Coreg -] 6.25 mg PO BID #60 tablet 12/02/16 Pantoprazole Sodium 40 mg PO DAILY 12/04/16 Family Disease History - Family Disease History Family Disease History: Other: Father ( 80's unclear cause), Mother ( 80 's CVA/[place]), Brother (1 brother CHF, 1 brother stomach cancer) Review of Systems - Review of Systems Constitutional: reports: Lethargy, Weakness Eyes: reports: No Symptoms HENT: reports: No Symptoms Neck: reports: No Symptoms Cardiovascular: reports: No Symptoms Respiratory: reports: SOB on Exertion Gastrointestinal: reports: Vomiting Genitourinary: reports: No Symptoms Breasts: reports: No Symptoms Reported Musculoskeletal: reports: No Symptoms Integumentary: reports: No Symptoms Neurological: reports: Weakness Endocrine: reports: No Symptoms Hematology/Lymphatic: reports: No Symptoms Psychiatric: reports: No Symptoms Pain Intensity: 0 Physical Exam Vital Signs: Vital Signs Temperature 97 F L 12/11/16 19:37 Pulse Rate 72 12/11/16 19:37 Respiratory Rate 15 12/11/16 19:37 Blood Pressure 107/60 12/11/16 19:37 O2 Sat by Pulse Oximetry (%) 99 12/11/16 19:37 Intake & Output 12/09/16 12/10/16 12/11/16 12/12/16 23:59 23:59 23:59 23:59 Output Total 1100 Balance -1100 Weight 84.4 kg Constitutional: Yes: Well Nourished, No Distress, Calm, Pallor Eyes: Yes: WNL, Conjunctiva Clear, EOM Intact HENT: Yes: WNL, Atraumatic, Normocephalic Neck: Yes: WNL, Supple, Trachea Midline Cardiovascular: Yes: WNL, Regular Rate and Rhythm Respiratory: Yes: WNL, Regular, CTA Bilaterally Gastrointestinal: Yes: WNL, Normal Bowel Sounds, Soft ...Rectal Exam: Yes: Deferred Renal/: Yes: WNL Breast(s): Yes: WNL Musculoskeletal: Yes: WNL Extremities: Yes: WNL Edema: Yes Edema: LLE: 4+, RLE: 4+ Peripheral Pulses WNL: Yes Integumentary: Yes: WNL Neurological: Yes: WNL, Alert, Oriented ...Motor Strength: WNL Psychiatric: Yes: WNL, Alert, Oriented Labs: CBC, BMP 12/11/16 15:34 12/11/16 15:34 Troponin, BNP 12/11/16 12/11/16 15:34 15:34 Troponin I 0.04 D B-Natriuretic Peptide 3263.14 H INR, PTT INR 1.17 (0.82-1.09) H 12/11/16 15:34 Imaging - Results Chest X-ray: Image Reviewed (12/11: Low Volumes, otherwise Clear (My Read).) EKG: Image Reviewed (RSR in the 70's w/ Ect, L BBB (Old), QTc = 509, no acute process (My Read).) Problem List - Problems (1) GI (gastrointestinal hemorrhage) Code(s): K92.2 - GASTROINTESTINAL HEMORRHAGE, UNSPECIFIED Qualifiers: GI bleed type/associated pathology: melena Qualified Code(s): K92.1 - Melena (2) CRISS (acute kidney injury) Code(s): N17.9 - ACUTE KIDNEY FAILURE, UNSPECIFIED (3) CAD (coronary artery disease) Code(s): I25.10 - ATHSCL HEART DISEASE OF [place] CORONARY ARTERY W/O ANG PCTRS Qualifiers: Coronary Disease-Associated Artery/Lesion type: unspecified vessel or lesion type [place] vs. transplanted heart: [place] heart Associated angina: without angina Qualified Code(s): I25.10 - Atherosclerotic heart disease of [place] coronary artery without angina pectoris (4) Urinary retention Code(s): R33.9 - RETENTION OF URINE, UNSPECIFIED Assessment/Plan ASSESS: This is an 86 y/o man w/ HTN, HL, CAD, [place] w/ stents, s/p TAVR (on ASA and Plavix), CKD, s/p nephrectomy, pt admitted now to the ICU for UGIB. PLAN: -NPO -HOB > 30 -Supp FiO2 for an SpO2 > 92% -Nebs -IS -Large Bore IV Access X2 -Active T & S -IV fluids -Marshall -Strict I's & O's -Trend CBC -Trend LA -Normal Transfusion Thresholds [Sina all blood products w/ Lasix ()] -IV PPI (Recent admit for GIB was thought to be 2/2 recent sphincterotomy & it resolved w/ PPI therapy and several transfusions) -Vit K -DDAVP -Hold All AC -D/c all anti-HTN meds -GI --> scope -If no Scope --> Transfer to floor for continued management -Surgery (Recent ERCP, sphincterotomy, & jayden) -Dr. Vieyra (CARDS) -TTE in the AM for worsening R HF Thank you for this Interesting Consult Efrain Lino, [facility] ICU PULM / CCM
[2016-12-11 23:38] VITALS: BMI 27.4
[2016-12-12] MEDS: CHLORHEXIDINE GLUCONATE 4% CLEANSER FOR DECOLONIZATION TP SCH ×2 (00:05→22:54)
[2016-12-12] MEDS: MUPIROCIN 2% TOPICAL OINTMENT FOR DECOLONIZATION NS SCH ×3 (00:06→22:54)
[2016-12-12 02:16] LABS: BASOPHIL 0.5 % (0-2.0); MCH 32.5 pg (25.7-33.7); MCHC 34.1 g/dl (32.0-35.9); MEAN CELL VOLUME 95.4 fl (80-96); MEAN PLT VOLUME 9.1 fl (7.5-11.1); NEUTROPHILS 78.2 % (42.8-82.8); PLATELET COUNT 72 K/MM3 (134-434); WHITE BLOOD COUNT 8.3 K/mm3 (4.0-10.0)
--- NOTE | 2016-12-12 02:56 | HOSP ---
Physical Examination Vital Signs: Vital Signs Temperature 98 F 12/12/16 02:00 Pulse Rate 64 12/12/16 02:00 Respiratory Rate 18 12/12/16 02:00 Blood Pressure 111/46 12/12/16 02:00 O2 Sat by Pulse Oximetry (%) 99 12/11/16 23:20 Labs: CBC, BMP 12/12/16 02:00 Hospitalist Encounter Assessment: Patient signed out by day team regarding medical condition of GI bleed. Initial hemoglobin 6.5. 2 prbc's given. Repeat cbc 1 hour post transfusion revealed a hemoglobin of 8. Due to pt's extensive history of heart failure, will hold 3rd prbc. Repeat cbc will be obtained in the AM. If patient actively bleeding, will give 3rd unit of prbc. RN notified Visit type - Emergency Visit Emergency Visit: Yes ED Registration Date: 12/11/16 Care time: The patient presented to the Emergency Department on the above date and was hospitalized for further evaluation of their emergent condition. - New Patient This patient is new to me today: Yes Date on this admission: 12/12/16 - Critical Care Critical Care patient: Yes Total Critical Care Time (in minutes): 30 Critical Care Statement: The care of this patient involved high complexity decision making to prevent further life threatening deterioration of the patient 's condition and/or to evaluate & treat vital organ system(s) failure or risk of failure.
[2016-12-12] MEDS: PANTOPRAZOLE SODIUM 80 MG in SODIUM CHLORIDE 100 ML IVPB SCH (03:00)
[2016-12-12 06:55] LABS: MCHC 34.9 g/dl (32.0-35.9); MEAN CELL VOLUME 94.5 fl (80-96); MEAN PLT VOLUME 9.5 fl (7.5-11.1); PLATELET COUNT 86 K/MM3 (134-434); RDW 16.5 % (11.9-15.9); WHITE BLOOD COUNT 7.8 K/mm3 (4.0-10.0)
[2016-12-12] MEDS ORDERED: LACTATED RINGERS SOLUTION 1,000 ML IV STA (07:05)
[2016-12-12 07:22] LABS: ALBUMIN 2.4 g/dl (3.4-5.0); ALK PHOS 64 U/L (45-117); ANION GAP 9 (8-16); BILIRUBIN,TOTAL 0.8 mg/dL (0.2-1.0); CO2 28 mmol/L (21-32); GLUCOSE,RANDOM 79 mg/dL (74-106); SGOT/AST 17 U/L (15-37); SGPT/ALT 8 U/L (12-78); TOT PROT 4.4 g/dl (6.4-8.2)
--- NOTE | 2016-12-12 07:30 | PN ---
Progress Note (short form) - Note Progress Note: 86M brought to [facility] ER for evaluation of their emergent condition. Per family, he developed worsening dyspnea on exertion leading to a near syncopal spell at home. S/p recent ERCP/sphinterotomy to remove residual stones 11/23/16. He had bleeding following his recent ERCP and sphincterotomy to extract residual CBD stones and required blood transfusions. EGD was deferred when the bleeding stopped and decision was made NOT to resume his Clopidrogel. Apparently, per his , he resumed taking his Clopidigrel despite being told not to take it. In the ER he had a large black BM. GI Consult appreciated. Denies CP, n/v/d, fever or chills. Last Vital Signs Temp Pulse Resp BP Pulse Ox 98 F 72 13 90/46 99 12/12/16 06:00 12/12/16 06:00 12/12/16 06:00 12/12/16 06:00 12/11/16 23:20 H/H TREND 12/11/16 12/12/16 12/12/16 15:34 02:00 05:15 Hgb 6.3 L* D 8.0 L D 7.2 L Hct 18.6 L D 23.4 L D 20.6 L PE GENERAL: alert. nad. pale appearing HEAD: NC. AT. EYES: PERRL. ABD: NT, ND. MUSCULOSKEL: 2+ b/l LE edema Rectal: +FOBT Problem List - Problems (1) GI (gastrointestinal hemorrhage) Assessment/Plan: Per GI note, taking patient today for EGD NPO / IVF PRBC PRN Serial Hct PPI DVT ppx Cont ICU management General Surgery will continue to follow Code(s): K92.2 - GASTROINTESTINAL HEMORRHAGE, UNSPECIFIED Qualifiers: GI bleed type/associated pathology: melena Qualified Code(s): K92.1 - Melena
[2016-12-12 07:42] LABS: INR 1.16 (0.82-1.09); PROTHROMBIN TIME (PATIENT) 12.8 SEC (9.98-11.88)
[2016-12-12 07:45] LABS: ACTIVATED PTT 26.2 SECONDS (26.9-34.4)
[2016-12-12] MEDS: PHYTONADIONE 10 MG/1 ML AMP IVPB SCH (08:15)
--- NOTE | 2016-12-12 08:49 | PN ---
Physical Exam: SUBJECTIVE: Mr. Nunez is an 86 y/o man w/ HTN, HL, CAD, [place] w/ stents, s/p TAVR w/ porcine valve (on ASA and Plavix), CKD, renal CA s/p nephrectomy, UTI, and urethral structures s/p balloon dilation, multiple admits throughout this summer for choledocholithiasis and cholangitis now s/p ERCP, sphincterotomy, & cholecystectomy. Pt BIBA this AM c/o weakness & worsening lower extremity edema (for which his physician advisor Dr Vieyra started furosemide about a week ago). Today the pt reports feeling weak & experienced a "brown" vomitus at home. The ED reports a large black BM & a Hgb < 7.0, but no LA (1.5). The pt denies any CP N/V/D, abd pain, or dysuria. Of note, pt's last ERCP was on 11/23/16 where his sphincterotomy was extended in order to remove residual stones. The pt was re- admitted the very next day for hematemesis. W/u revealed bleeding m/l 2/2 his sphincterotomy site and it resolved w/ PPI therapy and several transfusions. OBJECTIVE: Vital Signs Period Temp Pulse Resp BP Sys/Hinkle Pulse Ox Last 24 Hr 97 F-99.0 F 61-74 13-21 90-116/44-63 99-100 GENERAL: The patient is awake, alert, and fully oriented, in no acute distress. HEAD: Normal with no signs of trauma. EYES: sclera anicteric, conjunctiva pallor. No ptosis. ENT: dry mucous membranes. LUNGS: Breath sounds equal, clear to auscultation bilaterally, no wheezes, no crackles, no accessory muscle use. HEART: Regular rate and rhythm, S1, S2 ,2/6 systolic murmur,no rub or gallop. ABDOMEN: Soft, nontender, nondistended, normoactive bowel sounds, no guarding, no rebound tenderness EXTREMITIES: , warm, well-perfused, +1 edema. NEUROLOGICAL: good mentation PSYCH: Normal mood, normal affect. SKIN: Warm, dry, no rashes or lesions noted Laboratory Results - last 24 hr 12/11/16 12/11/16 12/12/16 18:30 22:36 02:00 WBC 8.3 D RBC 2.45 L D Hgb 8.0 L D Hct 23.4 L D MCV 95.4 MCH 32.5 MCHC 34.1 RDW 16.0 H Plt Count 72 L D MPV 9.1 Neutrophils % 78.2 Lymphocytes % 8.6 Monocytes % 6.7 Eosinophils % 6.0 H D Basophils % 0.5 PT with INR INR PTT (Actin FS) Sodium Potassium Chloride Carbon Dioxide Anion Gap BUN Creatinine Creat Clearance w eGFR Random Glucose Calcium Phosphorus Magnesium Total Bilirubin AST ALT Alkaline Phosphatase Total Protein Albumin Urine Color Straw Urine Appearance Clear Urine pH 5.0 Urine Protein Negative Urine Glucose (UA) Negative Urine Ketones Negative Urine Blood 3+ H Urine Nitrite Negative Urine Bilirubin Negative Urine Urobilinogen Negative Urine RBC <1 Urine WBC <1 Ur Epithelial Cells Rare Urine Bacteria Rare Urine Mucus Rare Stool Occult Blood Positive 12/12/16 12/12/16 12/12/16 05:15 05:15 05:15 WBC 7.8 RBC 2.18 L Hgb 7.2 L Hct 20.6 L MCV 94.5 MCH 33.0 MCHC 34.9 RDW 16.5 H Plt Count 86 L MPV 9.5 Neutrophils % Lymphocytes % Monocytes % Eosinophils % Basophils % PT with INR 12.80 H INR 1.16 H PTT (Actin FS) 26.2 L Sodium 141 Potassium 4.0 Chloride 104 Carbon Dioxide 28 Anion Gap 9 BUN 52 H Creatinine 2.0 H Creat Clearance w eGFR 31.69 Random Glucose 79 Calcium 8.0 L Phosphorus 3.0 Magnesium 2.0 Total Bilirubin 0.8 D AST 17 ALT 8 L D Alkaline Phosphatase 64 Total Protein 4.4 L Albumin 2.4 L Urine Color Urine Appearance Urine pH Urine Protein Urine Glucose (UA) Urine Ketones Urine Blood Urine Nitrite Urine Bilirubin Urine Urobilinogen Urine RBC Urine WBC Ur Epithelial Cells Urine Bacteria Urine Mucus Stool Occult Blood Active Medications Generic Name Dose Route Start Last Admin Trade Name Freq PRN Reason Stop Dose Admin Albuterol Sulfate 1 amp 12/11/16 23:23 Ventolin 0.083% Nebulizer Soln - NEB Q6H PRN SHORT OF BREATH/WHEEZING Chlorhexidine Gluconate 1 applic 12/11/16 22:00 12/12/16 00:05 Hibiclens For Decolonization - TP 1 applic HS [facility] Administration Pantoprazole Sodium 80 mg/ 100 mls @ 10 mls/hr 12/11/16 18:00 12/12/16 03:00 Sodium Chloride IVPB 10 mls/hr Q10H SUBHA Administration 8 MG/HR Lactated Ringer's 1,000 mls @ 500 mls/hr 12/12/16 07:05 12/12/16 07:00 Lactated Ringers Solution IV 12/12/16 09:04 500 mls/hr ONCE STA Administration Mupirocin 1 applic 12/11/16 22:00 12/12/16 00:06 Bactroban Ointment (For Decolonization) - NS 1 applic BID SUBHA Administration Phytonadione 1 mg 12/12/16 08:00 Aqua Mephyton Injection - IVPB 12/15/16 07:59 DAILY@0800 SUBHA CBC, BMP 12/12/16 23:45 12/12/16 05:15 ASSESSMENT/PLAN: 86M w/ extensive PMH CAD, S/P stent , CKD, , choledocholithiasis and cholangitis, most recently 11/24 s/p ERCP and CBD stent removal, who presented with mechanical fall, found to have a Hgb of 6.3 and melena in the ED, admitted to the ICU for suspected upper GI bleed. #GI bleed- likely upper, r/o lower(unlikely) -Hgb of 6.3 improved to 7.2 after 2 units PRBC , -transfuse 3 total units of PRBCs -lasix 20mg IV -vitk , DDAVP -protonix drip -duonebs PRN -GI on board- Dr. Parks, -surgery on board- Dr. Weems -cardiology on board- Dr. Hays -hematology on board- Dr. Garcia -f/u CBC after 3 units are given -f/u CBC, CMP, Mg, Ph, PT/PTT/INR in am -f/u UCx, Bcx, CXR #fall on buttocks, most likely mechanical, vs hypotension vs acute anemia * denies any dizzines or loss of consciousness before and after the fall, denies to heat his head * pelvic XR negative for fracture * consider CT if pain persist * PT when stable #HTN * currently hypotensive * will monitor closely * will give IV fluids as needed * hold carvedilol, started on lopressor 5mg IV q6h (hold if systolic BP < 130 OR HR < 60) # CKD, stable * at his base line #CAD * hold atorvastatin * Hold blavix for now due to bleeding * Cardiology recommend to use ASA instead of plavix when he is stable and hemoglobin are stable. * #Pulmonary nodule * incidental 5mm LLL pulmonary nodule. * will need CT scan to further evaluate * F/U as out patient #Urethral Strictures s/p Dilation -hold finasteride and flomax #Hx of choledocholithiasis -hold ursodiol #constipation -hold colace and miralax #, - f/u as out patient #Porcine Valve Replacement - F/U as pit patient #FEN/PPx -no fluids -electrolytes wnl -NPO , advanced to low sodium diet after the endoscopy -protonix drip -SCDs #Dispo * Admit to ICU due to upper GI bleed Visit type - Emergency Visit Emergency Visit: Yes ED Registration Date: 12/11/16 Care time: The patient presented to the Emergency Department on the above date and was hospitalized for further evaluation of their emergent condition. - New Patient This patient is new to me today: Yes Date on this admission: 12/13/16 - Critical Care Critical Care patient: Yes Total Critical Care Time (in minutes): 40 Critical Care Statement: The care of this patient involved high complexity decision making to prevent further life threatening deterioration of the patient 's condition and/or to evaluate & treat vital organ system(s) failure or risk of failure. - Discharge Referral Referred to [facility] No
--- NOTE | 2016-12-12 10:28 | CON.CARD ---
Consult Consult Specialty:: Cardiology Referred by:: ICU Reason for Consultation:: H/o TAVR - History of Present Illness Chief Complaint: GI bleed History of Present Illness: Patient is an 86 year old male with history of renal cancer s/p right nephrectomy, hypertension, coronary artery disease s/p PCI/stent, s/p TAVR ( 2015 at [facility]) who had ERCP for choledocholithiasis and cholangitis post stent removal and removal of multiple stones. He had presented 07/2016 with ascending cholangitis which lead to sepsis, DIC and renal failure. He reported increasing lower extremity edema and started on Lasix by Dr. Aubrey Vieyra, presents for melena, hematemesis, profound anemia. He also reports increased dyspnea on exertion with near syncopal episode, he denies chest pain, palpitations, true syncope, paroxysmal nocturnal dyspnea or orthopnea, currently receiving pRBC transfusion. - History Source History Provided By: Medical Record Limitations to Obtaining History: Poor Historian - Past Medical History Cardio/Vascular: Yes: Aortic Stenosis (Post TAVR at [facility] in 2015), CAD (s/p cardiac stent/ PCI 1995), HTN, Hyperlipdemia Gastrointestinal: Yes: Diverticulosis Hepatobiliary: Yes: Cholelithiasis, Choledocholithiasis (ERCP x 3 with stent insertion and removal) Renal/: Yes: Renal Failure (required dialysis in 08/08 following sepsis with ATN), Renal Inusuff, Cancer (Renal CA with right nephrectomy), Renal Calculi, Other (urethral stricture s/p cystoscopy, nephrectomy for RCC) Musculoskeletal: Yes: Other (DJD) - Past Surgical History Past Surgical History: Yes: Cholecystectomy, Nephrectomy (right nephrectomy for cancer 12/08), Stent (biliary stent 08/08, removed 12/09), Valve Replacement (TAVR) - Alcohol/Substance Use Hx Alcohol Use: No History of Substance Use: reports: None - Smoking History Smoking history: Never smoked Have you smoked in the past 12 months: No - Social History Usual Living Arrangement: With Spouse ADL: Independent 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 History of Recent Travel: No Home Medications - Allergies Allergies/Adverse Reactions: Allergies Allergy/AdvReac Type Severity Reaction Status Date / Time No Known Allergies Allergy Verified 12/11/16 13:17 - Home Medications Home Medications: Ambulatory Orders Finasteride 5 mg PO DAILY 05/13/16 Carvedilol [Coreg] 6.25 mg PO BID tablet 10/03/16 Ursodiol 300 mg PO BID capsule 10/03/16 Montelukast Sodium [Singulair] 10 mg PO DAILY tablet 11/07/16 Atorvastatin Calcium 10 mg PO DAILY tablet 11/09/16 Tamsulosin HCl [Flomax -] 0.4 mg PO DAILY 11/23/16 Ursodiol [Actigall] 300 mg PO BID #180 capsule 11/23/16 Docusate Sodium [Colace -] 300 mg PO HS #21 cap 11/30/16 Pantoprazole Sodium [Protonix -] 40 mg PO DAILY #30 tab 11/30/16 Phenol [Chloraseptic -] 1 spray MM Q6HPO PRN #1 bottle 11/30/16 Polyethylene Glycol 3350 [Miralax 119 gm Btl -] 17 gm PO DAILY #1 bottle Carvedilol [Coreg -] 6.25 mg PO BID #60 tablet 12/02/16 Pantoprazole Sodium 40 mg PO DAILY 12/04/16 Family Disease History - Family Disease History Family Disease History: Other: Father ( 80's unclear cause), Mother ( 80 's CVA/ID), Brother (1 brother CHF, 1 brother stomach cancer) Review of Systems - Review of Systems Constitutional: reports: Weakness Gastrointestinal: reports: Melena Vital Signs: Vital Signs Temperature 98 F 12/12/16 06:00 Pulse Rate 71 12/12/16 08:00 Respiratory Rate 13 12/12/16 08:59 Blood Pressure 88/43 12/12/16 08:00 O2 Sat by Pulse Oximetry (%) 99 12/11/16 23:20 Constitutional: Yes: No Distress, Calm Neck: Yes: Supple Respiratory: Yes: Regular, Diminished, On Nasal O2 Gastrointestinal: Yes: Normal Bowel Sounds, Soft Cardiovascular: Yes: Regular Rate and Rhythm JVD: No Carotid Bruit: No Heart Sounds: Yes: S1, S2 Murmur: Yes: Systolic Murmur, Grade 2 Edema: No - Other Data Labs, Other Data: CBC, BMP 12/12/16 05:15 12/12/16 05:15 INR, PTT INR 1.16 (0.82-1.09) H 12/12/16 05:15 NSR LBBB Imaging - Results Chest X-ray: Report Reviewed (NAD) Problem List - Problems (1) Anemia Code(s): D64.9 - ANEMIA, UNSPECIFIED Qualifiers: Anemia type: unspecified type Qualified Code(s): D64.9 - Anemia, unspecified (2) GI (gastrointestinal hemorrhage) Code(s): K92.2 - GASTROINTESTINAL HEMORRHAGE, UNSPECIFIED Qualifiers: GI bleed type/associated pathology: melena Qualified Code(s): K92.1 - Melena (3) CAD (coronary artery disease) Code(s): I25.10 - ATHSCL HEART DISEASE OF [place] CORONARY ARTERY W/O ANG PCTRS Qualifiers: Coronary Disease-Associated Artery/Lesion type: unspecified vessel or lesion type [place] vs. transplanted heart: [place] heart Associated angina: without angina Qualified Code(s): I25.10 - Atherosclerotic heart disease of [place] coronary artery without angina pectoris (4) CKD (chronic kidney disease) Code(s): N18.9 - CHRONIC KIDNEY DISEASE, UNSPECIFIED Qualifiers: Chronic kidney disease stage: stage 3 (moderate) Qualified Code(s): N18.3 - Chronic kidney disease, stage 3 (moderate) (5) History of percutaneous coronary intervention Code(s): Z98.890 - OTHER SPECIFIED POSTPROCEDURAL STATES (6) Hypercholesterolemia Code(s): E78.00 - PURE HYPERCHOLESTEROLEMIA, UNSPECIFIED (7) Left bundle branch block Code(s): I44.7 - LEFT BUNDLE-BRANCH BLOCK, UNSPECIFIED (8) Pre-operative cardiovascular examination Code(s): Z01.810 - ENCOUNTER FOR PREPROCEDURAL CARDIOVASCULAR EXAMINATION (9) Renal cancer Code(s): C64.9 - MALIGNANT NEOPLASM OF UNSP KIDNEY, EXCEPT RENAL PELVIS Qualifiers: Laterality: right Qualified Code(s): C64.1 - Malignant neoplasm of right kidney, except renal pelvis (10) S/P ERCP Code(s): Z98.890 - OTHER SPECIFIED POSTPROCEDURAL STATES (11) S/P TAVR (transcatheter aortic valve replacement) Code(s): Z95.2 - PRESENCE OF PROSTHETIC HEART VALVE (12) S/P laparoscopic cholecystectomy Code(s): Z90.49 - ACQUIRED ABSENCE OF OTHER SPECIFIED PARTS OF DIGESTIVE TRACT (13) Hypertension Code(s): I10 - ESSENTIAL (PRIMARY) HYPERTENSION Qualifiers: Hypertension type: essential hypertension Qualified Code(s): I10 - Essential (primary) hypertension Assessment/Plan 08/08/2016 Echo: Normal LV and RV size with severely decreased LV systolic fxn, mod-severe decrease RV fxn, mod MR, mild TR 1. UGI bleed planned for EGD 2. LV systolic dysfunction 3. Post TAVR 4. Coronary artery disease, s/p PCI/stent, angina 5. Hypertension 6. h/o ERCP, biliary stent implant/removal and stone retrieval for ascending cholangitis leading to sepsis 7. CKD with renal cancer s/p right nephrectomy PLAN: 1. Continue Protonix gtt, monitor Hgb post transfusion and repeat as needed, await EGD 2. On IV Lopressor, resume Carvedilol 3.125 bid once oral intake resumes 3. Resume Lipitor 10 qd and follow LFTs onc oral intake resumes 4. Recheck echo to reassess LV fxn 5. Thank you for consultatibe opportunity
[2016-12-12] MEDS ORDERED: PROPOFOL 20 ML ONE (11:26)
[2016-12-12] MEDS ORDERED: ETOMIDATE 20 MG/10 ML AMPUL IVPUSH ONE (11:26)
--- NOTE | 2016-12-12 12:17 | PN ---
Progress Note (short form) - Note Progress Note: GI Procedure NOte: Please see scanned EGD report. Has two ulcers in the gastric fundus. No longer bleeding. Will advance diet. Avoid Plavix for now. Will need chronic PPI. Problem is that these ulcers developed while on Pantoprazole with Plavix. Hopefully aspirin would be an adequate agent for the future as PPI are recognized to protect against ASA ulceration. Dr. Castillo just responded that aspirin will be adequate. Would allow for at least 2 weeks of healing before resuming.
[2016-12-12 12:34] LABS: MCH 32.5 pg (25.7-33.7); MCHC 34.3 g/dl (32.0-35.9); MEAN CELL VOLUME 94.8 fl (80-96); MEAN PLT VOLUME 8.7 fl (7.5-11.1); PLATELET COUNT 64 K/MM3 (134-434); RDW 15.9 % (11.9-15.9)
--- NOTE | 2016-12-12 13:02 | PN ---
Teaching Attending Note Name of Resident: Jerome Martin ATTENDING PHYSICIAN STATEMENT I saw and evaluated the patient. I reviewed the resident's note and discussed the case with the resident. I agree with the resident's findings and plan as documented. SUBJECTIVE:states that he was walking to the bathroom and felt lightheaded and dizzy and fell on his bottom. states he was not taking plavix and has not been on it for several months. states he started having normal brown BM 1 day after previous discharge. currently asymptomatic and requesting to eat. denies CP, SOB , fever, chills, LOC, striking his head, N/V/C/D or any symptoms prior to or after his fall as per ER notes pt did not fall on the ground and was lowered by NNP. and unclear if he re-started his plavix as stated he was taking it. as per RN has not had any BM since admission which was melena. OBJECTIVE: Last Vital Signs Temp Pulse Resp BP Pulse Ox 98.4 F 59 L 18 91/47 100 12/12/16 12:22 12/12/16 12:22 12/12/16 12:22 12/12/16 12:22 12/12/16 12:22 General NAD CV S1 S2 + murmur Lungs CTA B/L no wheezing/rales/rhonchi Abdomen soft NT/ND obese Extremities no pedal edema ASSESSMENT AND PLAN: 86yo M with PMH CAD s/p stent, CKD, , with recent admission for bacteremia and GI bleed from ERCP procedure and recently discharged on 11/30/16 and was re- admitted after mechanical fall and found to have hgb 6.3 1. Upper GI bleed- no repeated episode of melena since presentation. s/p 2 unit PRBC overnight. s/p Vit K and DDAVP. Hgb dropped this AM and currently receiving PRBC #3. unclear if EGD will be done today as RN reports it was cancelled. will give additional dose of vitamin K. trend Hgb closely. give lasix IVP prn to prevent volume overload. on PPI ggt. GI on board 2. HTN- currently hypotensive. likely due to acute bleeding. received 500cc bolus. will monitor closely. hold all oral antihypertensives. IVF as needed. 3. Mechanical fall-likley due to hypotension vs acute anemia claims to not have hit his head. XR of his hips negative for acute pathology. PT eval when medically optimized 4. Pulmonary nodule- incidental 5mm LLL pulmonary nodule. will need CT scan to further evaluate 5. CAD s/p stent- was instructed to hold plavix since last admission until cleared to re-start by GI. unclear if pt did so. cont to hold at this time. will likely not tolerate in the future. will d/w cardio about starting asa vs no therapy 6. 7. CKD- at baseline 8. DVT ppx- SCD 9. MICU monitoring The care of this patient involved high complexity decision making to prevent further life threatening deterioration of the patient's condition and/or to evaluate & treat vital organ system(s) failure or risk of failure. 45 minutes
[2016-12-12] MEDS ORDERED: PHYTONADIONE 10 MG/1 ML AMP SQ ONE (13:28)
--- NOTE | 2016-12-12 13:28 | PN ---
Teaching Attending Note Name of Resident: Castro Dailey ATTENDING PHYSICIAN STATEMENT I saw and evaluated the patient. I reviewed the resident's note and discussed the case with the resident. I agree with the resident's findings and plan as documented. SUBJECTIVE: Pt seen and examined in the ICU. No further hematemesis. Received 3 units PRBC so far. s/p EGD which showed 2 gastric ulcers. Denies abdominal pain, shortness of breath or chest pain. OBJECTIVE: Last Vital Signs Temp Pulse Resp BP Pulse Ox 98.4 F 59 L 18 91/47 100 12/12/16 12:22 12/12/16 12:22 12/12/16 12:22 12/12/16 12:22 12/12/16 12:22 Intake & Output 12/09/16 12/10/16 12/11/16 12/12/16 23:59 23:59 23:59 23:59 Intake Total 1480 Output Total 1100 1200 Balance -1100 280 Weight 186 lb 1.122 oz Gen: NAD at rest Heart: RRR, +systolic murmur Lung: decreased breath sounds at the bases Abd: soft, nontender Ext: + edema CBC, BMP 12/12/16 12:20 12/12/16 05:15 Active Medications Albuterol Sulfate (Ventolin 0.083% Nebulizer Soln -) 1 amp NEB Q6H PRN PRN Reason: SHORT OF BREATH/WHEEZING Chlorhexidine Gluconate (Hibiclens For Decolonization -) 1 applic TP HS [facility], 1928[facility]1983 Last Admin: 12/12/16 00:05 Dose: 1 applic Mupirocin (Bactroban Ointment (For Decolonization) -) 1 applic NS BID [facility], [facility]1983 Last Admin: 12/12/16 12:13 Dose: 1 applic Pantoprazole Sodium (Protonix -) 40 mg PO BID [facility]1983 Phytonadione (Aqua Mephyton Injection -) 1 mg IVPB DAILY@0800 [facility], [facility]1983 Stop: 12/15/16 07:59 Last Admin: 12/12/16 08:15 Dose: 1 mg ASSESSMENT AND PLAN: GI Bleed Gastric Ulcers Acute Blood Loss Anemia CAD s/p stent Aortic Stenosis s/p TAVR LV Systolic Dysfunction h/o Cholangitis CKD h/o R Nephrectomy - monitor H/H - transfuse as needed - protonix - ensure large bore peripheral access - PO per GI - hold all anticoagulation, antiplatelets - echocardiogram - DVT prophylaxis - continue ICU monitoring critical care time spent in reviewing chart, evaluating patient and formulating plan 35 min
--- NOTE | 2016-12-12 14:08 | PN ---
Physical Exam: SUBJECTIVE: Patient seen and examined OBJECTIVE: Vital Signs Period Temp Pulse Resp BP Sys/Hinkle Pulse Ox Last 24 Hr 97 F-99.0 F 59-74 13-21 88-116/43-63 99-100 GENERAL: The patient is awake, alert, and fully oriented, in no acute distress. HEAD: Normal with no signs of trauma. EYES: PERRL, extraocular movements intact, sclera anicteric, conjunctiva clear. No ptosis. ENT: Ears normal, nares patent, oropharynx clear without exudates, moist mucous membranes. NECK: Trachea midline, full range of motion, supple. LUNGS: Breath sounds equal, clear to auscultation bilaterally, no wheezes, no crackles, no accessory muscle use. HEART: Regular rate and rhythm, S1, S2 without murmur, rub or gallop. ABDOMEN: Soft, nontender, nondistended, normoactive bowel sounds, no guarding, no rebound, no hepatosplenomegaly, no masses. EXTREMITIES: 2+ pulses, warm, well-perfused, no edema. NEUROLOGICAL: Cranial nerves II through XII grossly intact. Normal speech, gait not observed. PSYCH: Normal mood, normal affect. SKIN: Warm, dry, normal turgor, no rashes or lesions noted Laboratory Results - last 24 hr 12/11/16 12/11/16 12/12/16 18:30 22:36 02:00 WBC 8.3 D RBC 2.45 L D Hgb 8.0 L D Hct 23.4 L D MCV 95.4 MCH 32.5 MCHC 34.1 RDW 16.0 H Plt Count 72 L D MPV 9.1 Neutrophils % 78.2 Lymphocytes % 8.6 Monocytes % 6.7 Eosinophils % 6.0 H D Basophils % 0.5 PT with INR INR PTT (Actin FS) Sodium Potassium Chloride Carbon Dioxide Anion Gap BUN Creatinine Creat Clearance w eGFR Random Glucose Calcium Phosphorus Magnesium Total Bilirubin AST ALT Alkaline Phosphatase Total Protein Albumin Urine Color Straw Urine Appearance Clear Urine pH 5.0 Ur Specific [place] 1.010 Urine Protein Negative Urine Glucose (UA) Negative Urine Ketones Negative Urine Blood 3+ H Urine Nitrite Negative Urine Bilirubin Negative Urine Urobilinogen Negative Urine RBC <1 Urine WBC <1 Ur Epithelial Cells Rare Urine Bacteria Rare Urine Mucus Rare Stool Occult Blood Positive 12/12/16 12/12/16 12/12/16 05:15 05:15 05:15 WBC 7.8 RBC 2.18 L Hgb 7.2 L Hct 20.6 L MCV 94.5 MCH 33.0 MCHC 34.9 RDW 16.5 H Plt Count 86 L MPV 9.5 Neutrophils % Lymphocytes % Monocytes % Eosinophils % Basophils % PT with INR 12.80 H INR 1.16 H PTT (Actin FS) 26.2 L Sodium 141 Potassium 4.0 Chloride 104 Carbon Dioxide 28 Anion Gap 9 BUN 52 H Creatinine 2.0 H Creat Clearance w eGFR 31.69 Random Glucose 79 Calcium 8.0 L Phosphorus 3.0 Magnesium 2.0 Total Bilirubin 0.8 D AST 17 ALT 8 L D Alkaline Phosphatase 64 Total Protein 4.4 L Albumin 2.4 L Urine Color Urine Appearance Urine pH Ur Specific [place] Urine Protein Urine Glucose (UA) Urine Ketones Urine Blood Urine Nitrite Urine Bilirubin Urine Urobilinogen Urine RBC Urine WBC Ur Epithelial Cells Urine Bacteria Urine Mucus Stool Occult Blood 12/12/16 12:20 WBC 6.0 RBC 2.32 L Hgb 7.5 L Hct 21.9 L MCV 94.8 MCH 32.5 MCHC 34.3 RDW 15.9 Plt Count 64 L D MPV 8.7 Neutrophils % Lymphocytes % Monocytes % Eosinophils % Basophils % PT with INR INR PTT (Actin FS) Sodium Potassium Chloride Carbon Dioxide Anion Gap BUN Creatinine Creat Clearance w eGFR Random Glucose Calcium Phosphorus Magnesium Total Bilirubin AST ALT Alkaline Phosphatase Total Protein Albumin Urine Color Urine Appearance Urine pH Ur Specific [place] Urine Protein Urine Glucose (UA) Urine Ketones Urine Blood Urine Nitrite Urine Bilirubin Urine Urobilinogen Urine RBC Urine WBC Ur Epithelial Cells Urine Bacteria Urine Mucus Stool Occult Blood Active Medications Generic Name Dose Route Start Last Admin Trade Name Freq PRN Reason Stop Dose Admin Albuterol Sulfate 1 amp 12/11/16 23:23 Ventolin 0.083% Nebulizer Soln - NEB Q6H PRN SHORT OF BREATH/WHEEZING Chlorhexidine Gluconate 1 applic 12/11/16 22:00 12/12/16 00:05 Hibiclens For Decolonization - TP 1 applic HS SUBHA Administration Mupirocin 1 applic 12/11/16 22:00 12/12/16 12:13 Bactroban Ointment (For Decolonization) - NS 1 applic BID SUBHA Administration Pantoprazole Sodium 40 mg 12/12/16 22:00 Protonix - PO BID SUBHA Phytonadione 1 mg 12/12/16 08:00 12/12/16 08:15 Aqua Mephyton Injection - IVPB 12/15/16 07:59 1 mg DAILY@0800 SUBHA Administration Intake & Output 12/09/16 12/10/16 12/11/16 12/12/16 23:59 23:59 23:59 23:59 Intake Total 1830 Output Total 1100 1200 Balance -1100 630 Weight 186 lb 1.122 oz ASSESSMENT/PLAN: 86yo M with PMH CAD s/p stent, CKD, , with recent admission for bacteremia and GI bleed from ERCP procedure and recently discharged on 11/30/16 and was re- admitted after mechanical fall and found to have hgb 6.3 1. Upper GI bleed- got egd done, shows two ulcers in fundus, not bleeding. Gi consult appreciated, started on protonix 40 po bid. avoid plavix. monitor haemoglobin got 3 units of blood, Hb 7.5 monitor vitals monitor intake and output 830/1200 has no episode of gabriel and haemtmais in icu. 2. HTN- currently hypotensive. likely from bleeding hold oral hypertensive. If Bp decreases consider IV fluid bolus, but watch for fluid overload as patient has poor EF 3 Anemia: likely from acute blood loss. monitor Hb 4 CKD at base line. 5 h/o CAD s/p stent continue to hold plavix due to gi bleed. cardiology on case, can give asa with ppi. Fluid: orally allowed electrolyte: normal nutrition: on sodium controlled diet. DVT pro: on scd. GI pro: on protonix. Dispo; in icu Visit type - Emergency Visit Emergency Visit: Yes ED Registration Date: 12/11/16 Care time: The patient presented to the Emergency Department on the above date and was hospitalized for further evaluation of their emergent condition. - New Patient This patient is new to me today: Yes Date on this admission: 12/12/16 - Critical Care Critical Care patient: Yes Total Critical Care Time (in minutes): 45 Critical Care Statement: The care of this patient involved high complexity decision making to prevent further life threatening deterioration of the patient 's condition and/or to evaluate & treat vital organ system(s) failure or risk of failure.
[2016-12-12 15:39] LABS: BASOPHIL 0.6 % (0-2.0); EOSINOPHIL 9.7 % (0-4.5); MCHC 34.6 g/dl (32.0-35.9); MEAN CELL VOLUME 95.4 fl (80-96); MEAN PLT VOLUME 9.1 fl (7.5-11.1); NEUTROPHILS 68.3 % (42.8-82.8); PLATELET COUNT 70 K/MM3 (134-434); RDW 16.2 % (11.9-15.9); WHITE BLOOD COUNT 6.4 K/mm3 (4.0-10.0)
[2016-12-12 17:38] LABS: MCH 32.7 pg (25.7-33.7); MCHC 34.8 g/dl (32.0-35.9); MEAN CELL VOLUME 93.9 fl (80-96); PLATELET COUNT 69 K/MM3 (134-434); RDW 16.1 % (11.9-15.9); WHITE BLOOD COUNT 6.1 K/mm3 (4.0-10.0)
[2016-12-12] MEDS ORDERED: dilTIAZem HCL 50 MG/10 ML - 10 ML VIAL IVPUSH ONE (18:25)
[2016-12-12] MEDS: PANTOPRAZOLE 40 MG TABLET (FP) PO SCH (22:56)
--- NOTE | 2016-12-12 22:59 | PN ---
Progress Note (short form) - Note Progress Note: S/P EGD Two gastric ulcers seen in the fundus No active bleeding Awake, alert Vital Signs Period Temp Pulse Resp BP Sys/Hinkle Pulse Ox Last 24 Hr 97.7 F-99.2 F 59-72 13-818 88-116/43-63 99-100 Abd soft, NT CBC, BMP 12/12/16 17:00 12/12/16 05:15 Transfuse PRN Hold anticoagulation Serial H/H
[2016-12-13 00:05] LABS: MCH 32.5 pg (25.7-33.7); MCHC 34.3 g/dl (32.0-35.9); MEAN CELL VOLUME 94.7 fl (80-96); PLATELET COUNT 57 K/MM3 (134-434); RDW 16.3 % (11.9-15.9); WHITE BLOOD COUNT 5.4 K/mm3 (4.0-10.0)
[2016-12-13] MEDS ORDERED: ACETAMINOPHEN 325 MG TABLET (FP) ONE (02:42)
[2016-12-13] MEDS ORDERED: ACETAMINOPHEN 325 MG TABLET (FP) PO ONE (02:48)
[2016-12-13 06:27] LABS: BASOPHIL 0.5 % (0-2.0); EOSINOPHIL 9.8 % (0-4.5); MCH 32.9 pg (25.7-33.7); MCHC 34.7 g/dl (32.0-35.9); MEAN CELL VOLUME 94.6 fl (80-96); MEAN PLT VOLUME 9.3 fl (7.5-11.1); NEUTROPHILS 66.5 % (42.8-82.8); PLATELET COUNT 60 K/MM3 (134-434); RDW 16.2 % (11.9-15.9); WHITE BLOOD COUNT 4.8 K/mm3 (4.0-10.0)
[2016-12-13 06:43] LABS: ALBUMIN 2.3 g/dl (3.4-5.0); ANION GAP 3 (8-16); BILIRUBIN,TOTAL 0.5 mg/dL (0.2-1.0); CALCIUM 8.5 mg/dL (8.5-10.1); CO2 31 mmol/L (21-32); CREATININE 1.8 mg/dL (0.7-1.3); GLUCOSE,RANDOM 84 mg/dL (74-106); PHOSPHOROUS 2.6 mg/dL (2.5-4.9); SGOT/AST 19 U/L (15-37); SGPT/ALT 10 U/L (12-78); TOT PROT 4.5 g/dl (6.4-8.2)
[2016-12-13 06:46] LABS: ALK PHOS 61 U/L (45-117); FERRITIN 118.389 ng/ml (16.4-293.9)
--- NOTE | 2016-12-13 08:19 | PN ---
Physical Exam: SUBJECTIVE: Patient seen and examined OBJECTIVE: Vital Signs Period Temp Pulse Resp BP Sys/Hinkle Pulse Ox Last 24 Hr 97.8 F-99.2 F 58-68 13-20 88-114/40-55 100-100 GENERAL: The patient is awake, alert, HEAD: Normal with no signs of trauma. EYES: PERRL, ENT: oropharynx clear without exudates, moist mucous membranes. NECK: Trachea midline, full range of motion, supple. LUNGS: Breath sounds equal, clear to auscultation bilaterally, no wheezes, no accessory muscle use. HEART: s1s2 normal. ABDOMEN: Soft, nontender, nondistended, normoactive bowel sounds, no guarding, EXTREMITIES: well-perfused, edema ++ SKIN: Warm, dry, Laboratory Results - last 24 hr 12/11/16 12/12/16 12/12/16 22:36 12:20 14:45 WBC 6.0 6.4 RBC 2.32 L 2.47 L Hgb 7.5 L 8.1 L Hct 21.9 L 23.5 L MCV 94.8 95.4 MCH 32.5 33.0 MCHC 34.3 34.6 RDW 15.9 16.2 H Plt Count 64 L D 70 L MPV 8.7 9.1 Neutrophils % 68.3 Lymphocytes % 13.5 D Monocytes % 7.9 Eosinophils % 9.7 H Basophils % 0.6 Retic Count Sodium Potassium Chloride Carbon Dioxide Anion Gap BUN Creatinine Creat Clearance w eGFR Random Glucose Calcium Phosphorus Magnesium Ferritin Total Bilirubin AST ALT Alkaline Phosphatase Total Protein Albumin Urine Color Straw Urine Appearance Clear Urine pH 5.0 Ur Specific [place] 1.010 Urine Protein Negative Urine Glucose (UA) Negative Urine Ketones Negative Urine Blood 3+ H Urine Nitrite Negative Urine Bilirubin Negative Urine Urobilinogen Negative Urine RBC <1 Urine WBC <1 Ur Epithelial Cells Rare Urine Bacteria Rare Urine Mucus Rare 12/12/16 12/12/16 12/13/16 17:00 23:45 05:10 WBC 6.1 5.4 4.8 RBC 2.32 L 2.23 L 2.18 L Hgb 7.6 L 7.2 L 7.2 L Hct 21.8 L 21.1 L 20.6 L MCV 93.9 94.7 94.6 MCH 32.7 32.5 32.9 MCHC 34.8 34.3 34.7 RDW 16.1 H 16.3 H 16.2 H Plt Count 69 L 57 L 60 L MPV 9.0 9.0 9.3 Neutrophils % 66.5 Lymphocytes % 16.2 Monocytes % 7.0 Eosinophils % 9.8 H Basophils % 0.5 Retic Count 1.16 D Sodium Potassium Chloride Carbon Dioxide Anion Gap BUN Creatinine Creat Clearance w eGFR Random Glucose Calcium Phosphorus Magnesium Ferritin Total Bilirubin AST ALT Alkaline Phosphatase Total Protein Albumin Urine Color Urine Appearance Urine pH Ur Specific [place] Urine Protein Urine Glucose (UA) Urine Ketones Urine Blood Urine Nitrite Urine Bilirubin Urine Urobilinogen Urine RBC Urine WBC Ur Epithelial Cells Urine Bacteria Urine Mucus 12/13/16 05:10 WBC RBC Hgb Hct MCV MCH MCHC RDW Plt Count MPV Neutrophils % Lymphocytes % Monocytes % Eosinophils % Basophils % Retic Count Sodium 139 Potassium 4.0 Chloride 105 Carbon Dioxide 31 Anion Gap 3 L BUN 52 H Creatinine 1.8 H Creat Clearance w eGFR 35.79 Random Glucose 84 Calcium 8.5 Phosphorus 2.6 Magnesium 2.0 Ferritin 118.389 Total Bilirubin 0.5 D AST 19 ALT 10 L D Alkaline Phosphatase 61 Total Protein 4.5 L Albumin 2.3 L Urine Color Urine Appearance Urine pH Ur Specific [place] Urine Protein Urine Glucose (UA) Urine Ketones Urine Blood Urine Nitrite Urine Bilirubin Urine Urobilinogen Urine RBC Urine WBC Ur Epithelial Cells Urine Bacteria Urine Mucus Active Medications Generic Name Dose Route Start Last Admin Trade Name Freq PRN Reason Stop Dose Admin Albuterol Sulfate 1 amp 12/11/16 23:23 Ventolin 0.083% Nebulizer Soln - NEB Q6H PRN SHORT OF BREATH/WHEEZING Chlorhexidine Gluconate 1 applic 12/11/16 22:00 12/12/16 22:54 Hibiclens For Decolonization - TP 1 applic HS SUBHA Administration Mupirocin 1 applic 12/11/16 22:00 12/12/16 22:54 Bactroban Ointment (For Decolonization) - NS 1 applic BID SUBHA Administration Pantoprazole Sodium 40 mg 12/12/16 22:00 12/12/16 22:56 Protonix - PO 40 mg BID SUBHA Administration Phytonadione 1 mg 12/12/16 08:00 12/12/16 08:15 Aqua Mephyton Injection - IVPB 12/15/16 07:59 1 mg DAILY@0800 SUBHA Administration ASSESSMENT/PLAN: 86yo M with PMH CAD s/p stent, CKD, , with recent admission for bacteremia and GI bleed from ERCP procedure and recently discharged on 11/30/16 and was re- admitted after mechanical fall and found to have hgb 6.3 Upper GI bleed- got egd done, shows two ulcers in fundus, not bleeding. on protonix 40 po bid. hold plavix/asa got 3 units of blood, Hb 7.5 getting 4th unit. recheck h/h PO per gi (Sodium controlled) HTN- currently hypotensive. likely from bleeding hold oral hypertensive. If Bp decreases consider IV fluid bolus, but watch for fluid overload as patient has poor EF DVT pro: on scd. GI pro: on protonix. Dispo; in icu - Maintain large bore peripheral access - Mechanical VTE prophylaxis Visit type - Emergency Visit Emergency Visit: No - New Patient This patient is new to me today: Yes Date on this admission: 12/13/16 - Critical Care Critical Care patient: Yes Total Critical Care Time (in minutes): 35 Critical Care Statement: The care of this patient involved high complexity decision making to prevent further life threatening deterioration of the patient 's condition and/or to evaluate & treat vital organ system(s) failure or risk of failure.
[2016-12-13] MEDS: PHYTONADIONE 10 MG/1 ML AMP IVPB SCH (08:52)
[2016-12-13] MEDS: MUPIROCIN 2% TOPICAL OINTMENT FOR DECOLONIZATION NS SCH ×2 (09:06→22:34)
[2016-12-13] MEDS: PANTOPRAZOLE 40 MG TABLET (FP) PO SCH (09:07)
--- NOTE | 2016-12-13 09:20 | PN ---
Progress Note, Physician History of Present Illness: EGD showed nonbleeding gastric ulcers, Hgb stabilizing post transfusion. - Current Medication List Current Medications: Active Medications Albuterol Sulfate (Ventolin 0.083% Nebulizer Soln -) 1 amp NEB Q6H PRN PRN Reason: SHORT OF BREATH/WHEEZING Chlorhexidine Gluconate (Hibiclens For Decolonization -) 1 applic TP HS [facility] Last Admin: 12/12/16 22:54 Dose: 1 applic Mupirocin (Bactroban Ointment (For Decolonization) -) 1 applic NS BID [facility] Last Admin: 12/13/16 09:06 Dose: 1 applic Pantoprazole Sodium (Protonix -) 40 mg PO BID [facility] Last Admin: 12/13/16 09:07 Dose: 40 mg Phytonadione (Aqua Mephyton Injection -) 1 mg IVPB DAILY@0800 [facility] Stop: 12/15/16 07:59 Last Admin: 12/13/16 08:52 Dose: 1 mg - Objective Vital Signs: Vital Signs Temperature 97.8 F 12/13/16 06:00 Pulse Rate 108 H 12/13/16 08:00 Respiratory Rate 21 12/13/16 08:00 Blood Pressure 118/54 12/13/16 08:00 O2 Sat by Pulse Oximetry (%) 100 12/13/16 07:59 Constitutional: Yes: No Distress, Calm Neck: Yes: Supple Cardiovascular: Yes: Regular Rate and Rhythm Respiratory: Yes: Regular, Diminished, On Nasal O2 Gastrointestinal: Yes: Soft, Hypoactive Bowel Sounds Edema: No Labs: CBC, BMP 12/13/16 05:10 12/13/16 05:10 INR, PTT INR 1.16 (0.82-1.09) H 12/12/16 05:15 Problem List - Problems (1) Anemia Code(s): D64.9 - ANEMIA, UNSPECIFIED Qualifiers: Anemia type: unspecified type Qualified Code(s): D64.9 - Anemia, unspecified (2) GI (gastrointestinal hemorrhage) Code(s): K92.2 - GASTROINTESTINAL HEMORRHAGE, UNSPECIFIED Qualifiers: GI bleed type/associated pathology: melena Qualified Code(s): K92.1 - Melena (3) CAD (coronary artery disease) Code(s): I25.10 - ATHSCL HEART DISEASE OF [place] CORONARY ARTERY W/O ANG PCTRS Qualifiers: Coronary Disease-Associated Artery/Lesion type: unspecified vessel or lesion type [place] vs. transplanted heart: [place] heart Associated angina: without angina Qualified Code(s): I25.10 - Atherosclerotic heart disease of [place] coronary artery without angina pectoris (4) CKD (chronic kidney disease) Code(s): N18.9 - CHRONIC KIDNEY DISEASE, UNSPECIFIED Qualifiers: Chronic kidney disease stage: stage 3 (moderate) Qualified Code(s): N18.3 - Chronic kidney disease, stage 3 (moderate) (5) History of percutaneous coronary intervention Code(s): Z98.890 - OTHER SPECIFIED POSTPROCEDURAL STATES (6) Hypercholesterolemia Code(s): E78.00 - PURE HYPERCHOLESTEROLEMIA, UNSPECIFIED (7) Left bundle branch block Code(s): I44.7 - LEFT BUNDLE-BRANCH BLOCK, UNSPECIFIED (8) Renal cancer Code(s): C64.9 - MALIGNANT NEOPLASM OF UNSP KIDNEY, EXCEPT RENAL PELVIS Qualifiers: Laterality: right Qualified Code(s): C64.1 - Malignant neoplasm of right kidney, except renal pelvis (9) S/P ERCP Code(s): Z98.890 - OTHER SPECIFIED POSTPROCEDURAL STATES (10) S/P TAVR (transcatheter aortic valve replacement) Code(s): Z95.2 - PRESENCE OF PROSTHETIC HEART VALVE (11) S/P laparoscopic cholecystectomy Code(s): Z90.49 - ACQUIRED ABSENCE OF OTHER SPECIFIED PARTS OF DIGESTIVE TRACT (12) Hypertension Code(s): I10 - ESSENTIAL (PRIMARY) HYPERTENSION Qualifiers: Hypertension type: essential hypertension Qualified Code(s): I10 - Essential (primary) hypertension (13) Gastric ulcer due to nonsteroidal anti-inflammatory drug (NSAID) Code(s): K25.9 - GASTRIC ULCER, UNSP ACUTE OR CHRONIC, W/O HEMOR OR PERF T39.395A - ADVERSE EFFECT OF NONSTEROIDAL ANTI-INFLAMMATORY DRUGS, INIT Assessment/Plan 08/08/2016 Echo: Normal LV and RV size with severely decreased LV systolic fxn, mod-severe decrease RV fxn, mod MR, mild TR 1. UGI bleed referable to gastric ulcers in fundus 2. LV systolic dysfunction 3. Post TAVR 4. Coronary artery disease, s/p PCI/stent, angina 5. Hypertension 6. h/o ERCP, biliary stent implant/removal and stone retrieval for ascending cholangitis leading to sepsis 7. 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 Anemia post transfusion PLAN: 1. Continue Protonix gtt, monitor Hgb post transfusion and repeat as needed 2. Resume Carvedilol 3.125 bid now that oral intake resumed 3. Resume Lipitor 10 qd and follow LFTs now that oral intake resumed 4. Recheck echo to reassess LV fxn 5. Resume antiplatelet after 2 weeks of healing with PPI
[2016-12-13] MEDS ORDERED: CARVEDILOL 3.125 MG TABLET (FP) PO SCH (10:00)
[2016-12-13] MEDS ORDERED: ACETAMINOPHEN 1000 MG/100 ML VIAL (NON FORMULARY) IVPB ONE (12:30)
--- NOTE | 2016-12-13 12:35 | PN ---
Teaching Attending Note Name of Resident: Luis Freire ATTENDING PHYSICIAN STATEMENT I saw and evaluated the patient. I reviewed the resident's note and discussed the case with the resident. I agree with the resident's findings and plan as documented. SUBJECTIVE: Patient seen and examined in the ICU. No further hematemesis. Required 1 additional unit of pRBC. Denies abdominal pain, shortness of breath, or chest pain. OBJECTIVE: Intake & Output 12/10/16 12/11/16 12/12/16 12/13/16 23:59 23:59 23:59 23:59 Intake Total 2230 200 Output Total 1100 2600 550 Balance -1100 -370 -350 Weight 186 lb 1.122 oz 182 lb 8.684 oz Last Vital Signs Temp Pulse Resp BP Pulse Ox 97.9 F 65 20 117/60 100 12/13/16 10:00 12/13/16 10:00 12/13/16 10:00 12/13/16 10:00 12/13/16 07:59 Active Medications Albuterol Sulfate (Ventolin 0.083% Nebulizer Soln -) 1 amp NEB Q6H PRN PRN Reason: SHORT OF BREATH/WHEEZING Atorvastatin Calcium (Lipitor -) 10 mg PO HS [facility] Carvedilol (Coreg -) 3.125 mg PO BID [facility] Chlorhexidine Gluconate (Hibiclens For Decolonization -) 1 applic TP HS [facility] Last Admin: 12/12/16 22:54 Dose: 1 applic Mupirocin (Bactroban Ointment (For Decolonization) -) 1 applic NS BID [facility] Last Admin: 12/13/16 09:06 Dose: 1 applic Pantoprazole Sodium (Protonix -) 40 mg PO BID [facility] Last Admin: 12/13/16 09:07 Dose: 40 mg Phytonadione (Aqua Mephyton Injection -) 1 mg IVPB DAILY@0800 [facility] Stop: 12/15/16 07:59 Last Admin: 12/13/16 08:52 Dose: 1 mg Gen: NAD at rest Heart: RRR, +systolic murmur Lung: decreased breath sounds at the bases Abd: soft, nontender Ext: + edema Laboratory Results - last 24 hr 12/11/16 12/12/16 12/12/16 15:34 12:20 14:45 WBC 6.0 6.4 RBC 2.32 L 2.47 L Hgb 7.5 L 8.1 L Hct 21.9 L 23.5 L MCV 94.8 95.4 MCH 32.5 33.0 MCHC 34.3 34.6 RDW 15.9 16.2 H Plt Count 64 L D 70 L MPV 8.7 9.1 Neutrophils % 68.3 Lymphocytes % 13.5 D Monocytes % 7.9 Eosinophils % 9.7 H Basophils % 0.6 Retic Count Sodium Potassium Chloride Carbon Dioxide Anion Gap BUN Creatinine Creat Clearance w eGFR Random Glucose Calcium Phosphorus Magnesium Ferritin Total Bilirubin AST ALT Alkaline Phosphatase Total Protein Albumin Blood Type A POSITIVE Antibody Screen Negative Crossmatch See Detail 12/12/16 12/12/16 12/13/16 17:00 23:45 05:10 WBC 6.1 5.4 4.8 RBC 2.32 L 2.23 L 2.18 L Hgb 7.6 L 7.2 L 7.2 L Hct 21.8 L 21.1 L 20.6 L MCV 93.9 94.7 94.6 MCH 32.7 32.5 32.9 MCHC 34.8 34.3 34.7 RDW 16.1 H 16.3 H 16.2 H Plt Count 69 L 57 L 60 L MPV 9.0 9.0 9.3 Neutrophils % 66.5 Lymphocytes % 16.2 Monocytes % 7.0 Eosinophils % 9.8 H Basophils % 0.5 Retic Count 1.16 D Sodium Potassium Chloride Carbon Dioxide Anion Gap BUN Creatinine Creat Clearance w eGFR Random Glucose Calcium Phosphorus Magnesium Ferritin Total Bilirubin AST ALT Alkaline Phosphatase Total Protein Albumin Blood Type Antibody Screen Crossmatch 12/13/16 05:10 WBC RBC Hgb Hct MCV MCH MCHC RDW Plt Count MPV Neutrophils % Lymphocytes % Monocytes % Eosinophils % Basophils % Retic Count Sodium 139 Potassium 4.0 Chloride 105 Carbon Dioxide 31 Anion Gap 3 L BUN 52 H Creatinine 1.8 H Creat Clearance w eGFR 35.79 Random Glucose 84 Calcium 8.5 Phosphorus 2.6 Magnesium 2.0 Ferritin 118.389 Total Bilirubin 0.5 D AST 19 ALT 10 L D Alkaline Phosphatase 61 Total Protein 4.5 L Albumin 2.3 L Blood Type Antibody Screen Crossmatch ASSESSMENT AND PLAN: GI Bleed due to gastric ulcers Acute Blood Loss Anemia CAD S/P PCI Aortic Stenosis s/p TAVR LV Systolic Dysfunction h/o Cholangitis CKD Hx of Right Nephrectomy - monitor H/H - Normal transfusion thresholds - protonix - Maintain large bore peripheral access - PO per GI - hold all anticoagulation, antiplatelets - Mechanical VTE prophylaxis Dr Ledesma Critical care time spent in reviewing chart, evaluating patient and formulating plan 35 min
[2016-12-13] MEDS ORDERED: morphine CARPU-JECT 2 MG/1 ML DISP.SYRIN IVPUSH ONE (12:39)
--- NOTE | 2016-12-13 13:09 | PN ---
Physical Exam: SUBJECTIVE: Patient seen and examined at bedside. No acute events over night. his hemoglobin 7.2 after 3 units of transfusion PRBCs , will transfuse another one today. He denies any fever, chills, N/V/D/C. He denies lightheadedness , dizziness, palpitation,SOB. He reports pain in his left hip due to his fall at home. OBJECTIVE: Vital Signs Period Temp Pulse Resp BP Sys/Hinkle Pulse Ox Last 24 Hr 97.8 F-99.2 F 58-108 16-22 88-119/40-60 100-100 GENERAL: The patient is awake, alert, and fully oriented, in mild acute distress due to hip pain. HEAD: Normal with no signs of trauma. EYES: sclera anicteric, conjunctiva pallor. No ptosis. ENT: Ears normal, nares patent, oropharynx clear without exudates, moist mucous membranes. NECK: Trachea midline, full range of motion, supple. LUNGS: Breath sounds equal, clear to auscultation bilaterally, no wheezes, no crackles, no accessory muscle use. HEART: Regular rate and rhythm, S1, S2, 2/6 systolic murmur, no rub or gallop. ABDOMEN: Soft, nontender, nondistended, normoactive bowel sounds, no guarding, no rebound tenderness. EXTREMITIES: warm, well-perfused, no edema. NEUROLOGICAL: good mentation SKIN: Warm, dry, no rashes or lesions noted Laboratory Results - last 24 hr 12/12/16 12/12/16 12/12/16 14:45 17:00 23:45 WBC 6.4 6.1 5.4 RBC 2.47 L 2.32 L 2.23 L Hgb 8.1 L 7.6 L 7.2 L Hct 23.5 L 21.8 L 21.1 L MCV 95.4 93.9 94.7 MCH 33.0 32.7 32.5 MCHC 34.6 34.8 34.3 RDW 16.2 H 16.1 H 16.3 H Plt Count 70 L 69 L 57 L MPV 9.1 9.0 9.0 Neutrophils % 68.3 Lymphocytes % 13.5 D Monocytes % 7.9 Eosinophils % 9.7 H Basophils % 0.6 Retic Count Sodium Potassium Chloride Carbon Dioxide Anion Gap BUN Creatinine Creat Clearance w eGFR Random Glucose Calcium Phosphorus Magnesium Ferritin Total Bilirubin AST ALT Alkaline Phosphatase Total Protein Albumin 12/13/16 12/13/16 05:10 05:10 WBC 4.8 RBC 2.18 L Hgb 7.2 L Hct 20.6 L MCV 94.6 MCH 32.9 MCHC 34.7 RDW 16.2 H Plt Count 60 L MPV 9.3 Neutrophils % 66.5 Lymphocytes % 16.2 Monocytes % 7.0 Eosinophils % 9.8 H Basophils % 0.5 Retic Count 1.16 D Sodium 139 Potassium 4.0 Chloride 105 Carbon Dioxide 31 Anion Gap 3 L BUN 52 H Creatinine 1.8 H Creat Clearance w eGFR 35.79 Random Glucose 84 Calcium 8.5 Phosphorus 2.6 Magnesium 2.0 Ferritin 118.389 Total Bilirubin 0.5 D AST 19 ALT 10 L D Alkaline Phosphatase 61 Total Protein 4.5 L Albumin 2.3 L Active Medications Generic Name Dose Route Start Last Admin Trade Name Freq PRN Reason Stop Dose Admin Albuterol Sulfate 1 amp 12/11/16 23:23 Ventolin 0.083% Nebulizer Soln - NEB Q6H PRN SHORT OF BREATH/WHEEZING Atorvastatin Calcium 10 mg 12/13/16 22:00 Lipitor - PO HS [facility] Carvedilol 3.125 mg 12/13/16 10:00 Coreg - PO BID [facility] Chlorhexidine Gluconate 1 applic 12/11/16 22:00 12/12/16 22:54 Hibiclens For Decolonization - TP 1 applic HS [facility] Administration Mupirocin 1 applic 12/11/16 22:00 12/13/16 09:06 Bactroban Ointment (For Decolonization) - NS 1 applic BID [facility] Administration Pantoprazole Sodium 40 mg 12/12/16 22:00 12/13/16 09:07 Protonix - PO 40 mg BID [facility] Administration Phytonadione 1 mg 12/12/16 08:00 12/13/16 08:52 Aqua Mephyton Injection - IVPB 12/15/16 07:59 1 mg DAILY@0800 [facility] Administration ASSESSMENT/PLAN: 86M w/ extensive PMH CAD, S/P stent , CKD, , choledocholithiasis and cholangitis, most recently 11/24 s/p ERCP and CBD stent removal, who presented with mechanical fall, found to have a Hgb of 6.3 and melena in the ED, admitted to the ICU for suspected upper GI bleed. #GI bleed- likely upper, r/o lower(unlikely) -Hgb of 6.3 improved to 7.2 after 2 units PRBC , - total of 4 units of PRBCs has been transfused -lasix 20mg IV -vitk , DDAVP -protonix 40 BID -duonebs PRN -GI on board- Dr. Parks, EGD showed 2 gastric ulcers in the fundus with no active bleeding or visible vessel. -tolerating regular diet. -surgery on board- Dr. Weems -cardiology on board- Dr. Hays -hematology on board- Dr. Garcia -f/u CBC after 4 units are given -f/u CBC, CMP, Mg, Ph, PT/PTT/INR in am -f/u UCx, Bcx, CXR #fall on buttocks, most likely mechanical, vs hypotension vs acute anemia * complain of pain in the left hip * denies any dizzines or loss of consciousness before and after the fall, denies to heat his head * pelvic XR negative for fracture * consider CT if pain persist * pain control * PT when stable #HTN * currently hypotensive * will monitor closely * will give IV fluids as needed * hold carvedilol, started on lopressor 5mg IV q6h (hold if systolic BP < 130 OR HR < 60) # CKD, stable * at his base line #CAD * hold atorvastatin * Hold blavix for now due to bleeding * Cardiology recommend to use ASA instead of plavix when he is stable and hemoglobin are stable.2 weeks after GI follow up * #Pulmonary nodule * incidental 5mm LLL pulmonary nodule. * will need CT scan to further evaluate * F/U as out patient #Urethral Strictures s/p Dilation * hold finasteride and flomax #Hx of choledocholithiasis * hold ursodiol #constipation * continue colace, senna #, * f/u as out patient #Porcine Valve Replacement * F/U as out patient #FEN/PPx -no fluids -electrolytes wnl - advanced to low sodium diet -protonix 40 BID -SCDs, no pharmacology anticoagulation for now #Dispo * Admit to ICU due to upper GI bleed * consider transfer to med surg when Hgb stable Visit type - Emergency Visit Emergency Visit: Yes ED Registration Date: 12/11/16 Care time: The patient presented to the Emergency Department on the above date and was hospitalized for further evaluation of their emergent condition. - New Patient This patient is new to me today: No - Critical Care Critical Care patient: Yes Total Critical Care Time (in minutes): 40 Critical Care Statement: The care of this patient involved high complexity decision making to prevent further life threatening deterioration of the patient 's condition and/or to evaluate & treat vital organ system(s) failure or risk of failure. - Discharge Referral Referred to [facility] Med [facility] No
--- NOTE | 2016-12-13 13:30 | PN ---
Teaching Attending Note Name of Resident: Jerome Martin ATTENDING PHYSICIAN STATEMENT I saw and evaluated the patient. I reviewed the resident's note and discussed the case with the resident. I agree with the resident's findings and plan as documented. SUBJECTIVE:states he has no symptoms at this time. no reports of BM since presentation. denies CP, SOB, fever, chills, N/V/C/D OBJECTIVE: Last Vital Signs Temp Pulse Resp BP Pulse Ox 97.9 F 67 22 119/53 100 12/13/16 10:00 12/13/16 12:00 12/13/16 12:00 12/13/16 12:00 12/13/16 07:59 General NAD CV S1 S2 + murmur Lungs CTA B/L no wheezing/rales/rhonchi Abdomen soft NT/ND obese Extremities no pedal edema ASSESSMENT AND PLAN: 86yo M with PMH CAD s/p stent, CKD, , with recent admission for bacteremia and GI bleed from ERCP procedure and recently discharged on 11/30/16 and was re- admitted after mechanical fall and found to have hgb 6.3 1. Upper GI bleed- no repeated episode of melena since presentation. s/p 2 unit PRBC. slight drop in Hgb will transfuse additional PRBC. EGD showed 2 gastric ulcers in the fundus, no active bleeding or visible vessel. tolerating regular diet. PPI ggt switched to po BID. cont to trend hgb. txn as needed. GI on board 2. HTN- normotensive. re-start antihypertensives as needed. low dose coreg resumed this am. 3. Mechanical fall-likley due to hypotension vs acute anemia claims to not have hit his head. XR of his hips negative for acute pathology. PT eval when medically optimized 4. Constipation- start stool softeners. monitor for BM 5. Pulmonary nodule- incidental 5mm LLL pulmonary nodule. will need CT scan to further evaluate 6. CAD s/p stent- will start low dose asa in 2 weeks after GI follow up 7. 8. CKD- at baseline 9. DVT ppx- SCD 10. MICU monitoring. stable for transfer to the floors. The care of this patient involved high complexity decision making to prevent further life threatening deterioration of the patient's condition and/or to evaluate & treat vital organ system(s) failure or risk of failure. 35 minutes ASSESSMENT AND PLAN:
--- NOTE | 2016-12-13 14:39 | PN ---
Progress Note (short form) - Note Progress Note: No new events In ICU Tolerating diet No pain Vital Signs Period Temp Pulse Resp BP Sys/Hinkle Pulse Ox Last 24 Hr 97.8 F-99.2 F 58-108 16-22 90-119/40-60 100-100 Abd soft, NT CBC, BMP 12/13/16 05:10 12/13/16 05:10 Serial H/H Continue medical care
[2016-12-13] MEDS ORDERED: ALBUTEROL SO4 0.083% IH SOL 2.5 MG/3 ML VIAL.NEB. NEB PRN (18:26)
[2016-12-13 19:29] LABS: MCH 32.5 pg (25.7-33.7); MCHC 34.5 g/dl (32.0-35.9); MEAN PLT VOLUME 9.5 fl (7.5-11.1); PLATELET COUNT 85 K/MM3 (134-434); RDW 16.7 % (11.9-15.9); WHITE BLOOD COUNT 7.4 K/mm3 (4.0-10.0)
[2016-12-13] MEDS ORDERED: SENNOSIDES 8.6MG TABLET (FP) PO SCH (22:00)
[2016-12-13] MEDS ORDERED: ATORVASTATIN CA 10 MG TABLET (FP) PO SCH (22:00)
[2016-12-13] MEDS ORDERED: PANTOPRAZOLE 40 MG TABLET (FP) PO SCH (22:00)
[2016-12-13] MEDS ORDERED: DOCUSATE SODIUM 100 MG CAPSULE (FP) PO SCH (22:00)
[2016-12-13] MEDS: ATORVASTATIN CA 10 MG TABLET (FP) PO SCH (22:34)
[2016-12-13] MEDS: CARVEDILOL 3.125 MG TABLET (FP) PO SCH (22:34)
[2016-12-13] MEDS: CHLORHEXIDINE GLUCONATE 4% CLEANSER FOR DECOLONIZATION TP SCH (22:34)
[2016-12-14 03:18] LABS: MCH 32.1 pg (25.7-33.7); MCHC 35.2 g/dl (32.0-35.9); MEAN CELL VOLUME 91.3 fl (80-96); MEAN PLT VOLUME 9.2 fl (7.5-11.1); PLATELET COUNT 63 K/MM3 (134-434); RDW 15.9 % (11.9-15.9); WHITE BLOOD COUNT 7.8 K/mm3 (4.0-10.0)
[2016-12-14] MEDS ORDERED: FUROSEMIDE 40 MG/4 ML INJECTABLE VIAL IVPUSH ONE (05:42)
[2016-12-14 05:53] LABS: BASOPHIL 0.4 % (0-2.0); MCH 31.9 pg (25.7-33.7); MCHC 34.9 g/dl (32.0-35.9); MEAN CELL VOLUME 91.5 fl (80-96); MEAN PLT VOLUME 9.5 fl (7.5-11.1); NEUTROPHILS 74.8 % (42.8-82.8); PLATELET COUNT 65 K/MM3 (134-434); RDW 16.5 % (11.9-15.9); WHITE BLOOD COUNT 7.2 K/mm3 (4.0-10.0)
[2016-12-14 06:22] LABS: ALBUMIN 2.2 g/dl (3.4-5.0); ANION GAP 9 (8-16); CALCIUM 8.1 mg/dL (8.5-10.1); CO2 27 mmol/L (21-32); MAGNESIUM 1.9 mg/dL (1.8-2.4)
[2016-12-14 06:27] LABS: ALK PHOS 59 U/L (45-117); BILIRUBIN,TOTAL 0.6 mg/dL (0.2-1.0); CREATININE 1.4 mg/dL (0.7-1.3); GLUCOSE,RANDOM 85 mg/dL (74-106); PHOSPHOROUS 2.3 mg/dL (2.5-4.9); SGOT/AST 19 U/L (15-37); SGPT/ALT 11 U/L (12-78); TOT PROT 4.3 g/dl (6.4-8.2)
--- NOTE | 2016-12-14 07:47 | PN ---
Physical Exam: SUBJECTIVE: CBC at 7PM notable for HgB 7.2 (7.2 in AM). Per nursing, pt with melenic BM. On-call GI Dr. Parks notified, recommended 1unit pRBCs overnight w / repeat CBC in AM and f/u colonoscopy. Pt transfer to floors cancelled pending possible re-bleed. Ordered for NPO overnight. Night team aware. OBJECTIVE: Vital Signs Period Temp Pulse Resp BP Sys/Hinkle Pulse Ox Last 24 Hr 97.6 F-98.7 F 63-108 16-22 96-126/47-92 100-100 Intake & Output 12/11/16 12/12/16 12/13/16 12/14/16 23:59 23:59 23:59 23:59 Intake Total 2230 1050 450 Output Total 1100 2600 1450 1300 Balance -1100 -370 -400 -850 Weight 84.4 kg 82.8 kg 83.552 kg GENERAL: The patient is awake, alert, HEAD: Normal with no signs of trauma. EYES: PERRL, ENT: oropharynx clear without exudates, moist mucous membranes. NECK: Trachea midline, full range of motion, supple. LUNGS: Breath sounds equal, clear to auscultation bilaterally, no wheezes, no accessory muscle use. HEART: s1s2 normal. ABDOMEN: Soft, nontender, nondistended, normoactive bowel sounds, no guarding, EXTREMITIES: well-perfused, edema ++ SKIN: Warm, dry Laboratory Results - last 24 hr 12/11/16 12/13/16 12/14/16 22:36 19:22 03:00 WBC 7.4 D 7.8 RBC 2.23 L 2.29 L Hgb 7.2 L 7.3 L Hct 21.0 L 20.9 L MCV 94.0 91.3 MCH 32.5 32.1 MCHC 34.5 35.2 RDW 16.7 H 15.9 Plt Count 85 L D 63 L D MPV 9.5 9.2 Neutrophils % Lymphocytes % Monocytes % Eosinophils % Basophils % Sodium Potassium Chloride Carbon Dioxide Anion Gap BUN Creatinine Creat Clearance w eGFR Random Glucose Calcium Phosphorus Magnesium Total Bilirubin AST ALT Alkaline Phosphatase Total Protein Albumin Urine Color Straw Urine Appearance Clear Urine pH 5.0 Ur Specific [place] 1.010 Urine Protein Negative Urine Glucose (UA) Negative Urine Ketones Negative Urine Blood 3+ H Urine Nitrite Negative Urine Bilirubin Negative Urine Urobilinogen Negative Urine RBC <1 Urine WBC <1 Ur Epithelial Cells Rare Urine Bacteria Rare Urine Mucus Rare 12/14/16 12/14/16 05:00 05:00 WBC 7.2 RBC 2.27 L Hgb 7.3 L Hct 20.8 L MCV 91.5 MCH 31.9 MCHC 34.9 RDW 16.5 H Plt Count 65 L MPV 9.5 Neutrophils % 74.8 Lymphocytes % 10.7 D Monocytes % 6.1 Eosinophils % 8.0 H Basophils % 0.4 Sodium 140 Potassium 4.1 Chloride 104 Carbon Dioxide 27 Anion Gap 9 BUN 58 H Creatinine 1.4 H D Creat Clearance w eGFR 47.83 Random Glucose 85 Calcium 8.1 L Phosphorus 2.3 L Magnesium 1.9 Total Bilirubin 0.6 AST 19 ALT 11 L Alkaline Phosphatase 59 Total Protein 4.3 L Albumin 2.2 L Urine Color Urine Appearance Urine pH Ur Specific [place] Urine Protein Urine Glucose (UA) Urine Ketones Urine Blood Urine Nitrite Urine Bilirubin Urine Urobilinogen Urine RBC Urine WBC Ur Epithelial Cells Urine Bacteria Urine Mucus Active Medications Generic Name Dose Route Start Last Admin Trade Name Freq PRN Reason Stop Dose Admin Albuterol Sulfate 1 amp 12/13/16 18:26 Ventolin 0.083% Nebulizer Soln - NEB Q6H PRN SHORT OF BREATH/WHEEZING Atorvastatin Calcium 10 mg 12/13/16 22:00 12/13/16 22:34 Lipitor - PO 10 mg HS [facility] Administration Carvedilol 3.125 mg 12/13/16 22:00 12/13/16 22:34 Coreg - PO 3.125 mg BID [facility] Administration Chlorhexidine Gluconate 1 applic 12/13/16 22:00 12/13/16 22:34 Hibiclens For Decolonization - TP 1 applic HS [facility] Administration Docusate Sodium 300 mg 12/13/16 22:00 12/13/16 22:35 Colace - PO 300 mg HS [facility] Administration Mupirocin 1 applic 12/13/16 22:00 12/13/16 22:34 Bactroban Ointment (For Decolonization) - NS 1 applic BID [facility] Administration Pantoprazole Sodium 40 mg 12/13/16 22:00 12/13/16 22:34 Protonix - PO 40 mg BID [facility] Administration Senna 2 tab 12/13/16 22:00 12/13/16 22:35 Senna - PO 2 tab HS [facility] Administration ASSESSMENT/PLAN: 86yo M with PMH CAD s/p stent, CKD, , with recent admission for bacteremia and GI bleed from ERCP procedure and recently discharged on 11/30/16 and was re- admitted after mechanical fall and found to have hgb 6.3 Upper GI bleed- got egd done, shows two ulcers in fundus, not bleeding. on protonix 40 po bid. hold plavix/asa getting 7th unit of blood PO per gi (Sodium controlled) PER GI: if bleeding persist, will consider CTA. Colonoscopy scheduled for 12/17 Per Hematology: f/u on order of haptoglobin, b12/folate, HIT assay and fibrinogen. HTN- currently hypotensive. likely from bleeding hold oral hypertensive. If Bp decreases consider IV fluid bolus, but watch for fluid overload as patient has poor EF DVT pro: on scd. GI pro: on protonix. Dispo; in icu Visit type - Emergency Visit Emergency Visit: No - New Patient This patient is new to me today: Yes Date on this admission: 12/14/16 - Critical Care Critical Care patient: Yes Total Critical Care Time (in minutes): 30 Critical Care Statement: The care of this patient involved high complexity decision making to prevent further life threatening deterioration of the patient 's condition and/or to evaluate & treat vital organ system(s) failure or risk of failure.
[2016-12-14 08:07] LABS: SERUM IRON 138 ug/dL (38-169); TOTAL IRON BINDING CAPACITY 182 ug/dL (250-450); UIBC 44 ug/dL (111-343)
[2016-12-14] MEDS ORDERED: POTASSIUM PHOSPHATE 30 MM in SODIUM CHLORIDE 250 ML IVPB ONE (09:30)
[2016-12-14] MEDS: MUPIROCIN 2% TOPICAL OINTMENT FOR DECOLONIZATION NS SCH ×2 (10:00→21:34)
[2016-12-14] MEDS: CARVEDILOL 3.125 MG TABLET (FP) PO SCH ×2 (11:03→21:38)
--- NOTE | 2016-12-14 11:15 | PN ---
GI Progress Note Subjective: GI NOte: Bleeding has recurred but is now maroon colored and has required 3 units of blood. I had ordered a bleeding scan but after discussion with Dr. Ortega have canceled it and instead will pursue CTA if absolutely necessary. Given his renal insufficiency there is significant risk with the contrast which I have discussed with Blane. I have requested a renal consult to determine whether Mucormyst would be beneficial. I have informed Blane of the potential need for IR embolization and possibly for surgery if the bleeding continues. I have discussed the case with Dr Garcia who will administer platelets. Discussed the case with Dr Weems who is on standby. - Objective Vital Signs: Vital Signs Temperature 97.6 F 12/14/16 10:00 Pulse Rate 70 12/14/16 10:29 Respiratory Rate 20 12/14/16 10:00 Blood Pressure 131/57 12/14/16 10:00 O2 Sat by Pulse Oximetry (%) 97 12/14/16 10:29 Laboratory Tests 12/13/16 12/14/16 12/14/16 05:10 05:00 05:00 Plt Count 65 L Retic Count 1.16 D Total Bilirubin 0.6 AST 19 ALT 11 L Alkaline Phosphatase 59 Albumin 2.2 L Constitutional: Calm, Pallor Cardiovascular: Yes: Regular Rate and Rhythm Respiratory: Yes: CTA Bilaterally ...Auscultate: Yes: Hyperactive Bowel Sounds ...Palpate: Yes: Soft, Other (nontender) Labs: CBC, BMP 12/14/16 05:00 12/14/16 05:00 INR, PTT INR 1.16 (0.82-1.09) H 12/12/16 05:15 Assessment/Plan The maroon color of his stool now suggests an lower GI source of bleeding. Await platelet transfusion. If bleeding persisit will pursue CTA and IR intervention. I have also discussed the potential need for a colonoscopy. I have informed Blane of the potential risks of perforation and hemorrhage that can arise during endoscopy. He has granted an informed consent. I have scheduled it for the 12/17. Will refrain from an NG tube given his thrombocytopenia.
[2016-12-14] MEDS: PANTOPRAZOLE SODIUM 80 MG in SODIUM CHLORIDE 100 ML IVPB SCH ×2 (11:16→21:34)
--- NOTE | 2016-12-14 11:33 | CONSULT ---
Consult Consult Specialty:: Hematology Oncology Referred by:: Stacy Frederickkiara - History of Present Illness Chief Complaint: admitted for near syncope History of Present Illness: 86 y/o M with multiple medical problems including TAVR on ASA/Plavix, s/p jaundice due to stones s/p ERCP /cholecystectomy , hx R nephrectomy for RCC admitted w severe anemia and evidence of GI bleeding w melena H/H 6/18.6 MCV 97 Retic 1.6 , mild thrombocytopenia 106K ; pt transfused PC's and underwent endoscopy- gastric ulcers ; BNP high ; anti-platelet agents held . Chemistries w creat 2-3 range , now improved.Pt denies pain , N&V/,SOB now , bleeding phenomena; still w melenotic stool.Platelets drifted down to 65K, Hgb 7.3, WBC has been nl w unremarkable diff(sl high eos) ; LFT's nl.CXR without acute pathology , R hilum slightly full .Peripheral smear reviewed - plates small to mod. large , no clumps ; no schistocytes or microspherocytes , WBC's unremarkable. 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: No: Alzheimer's, CVA, Dementia, Migraine, Multiple Sclerosis, Peripheral Neuropathy, Parkinson's, Seizure, Syncope, TIA, Vertigo, Other Cardio/Vascular: Yes: Aortic Stenosis (Post TAVR at [facility] in 2015), CAD (s/p cardiac stent/ PCI 1995), HTN, Hyperlipdemia Pulmonary: No: Asthma, Bronchitis, Cancer, COPD, O2 Dependent, Pneumonia, Previously Intubated, Pulmonary Embolus, Pulmonary Fibrosis, Sleep Apnea, Other Gastrointestinal: Yes: Diverticulosis, Peptic Ulcer Disease Hepatobiliary: Yes: Cholelithiasis, Choledocholithiasis (ERCP x 3 with stent insertion and removal) Renal/: Yes: Renal Failure (required dialysis in 08/08 following sepsis with ATN), Renal Inusuff, Cancer (Renal CA with right nephrectomy), Renal Calculi, Other (urethral stricture s/p cystoscopy, nephrectomy for RCC) Heme/Onc: No: Anemia, B12 Deficiency, Bleeding Disorder, Cancer, Current Chemotherapy, Current Radiation Therapy, Hemochromatosis, Hypercoaguable State, Myeloproliferative Synd, Sickle Cell Disease, Sickle Cell Trait, Thrombocytopenia, Other Infectious Disease: No: AIDS, C-Diff, Herpes Zoster, HIV, MRSA, STD's, Tuberculosis, VREF, Other Psych: No: Addictions, Anxiety, Bipolar, Depression, Panic, Psychosis, Schizophrenia, Other Musculoskeletal: Yes: Other (DJD) Rheumatology: No: Fibromyalgia, Gout, Lupus, Rheumatoid Arthritis, Sarcoidosis, Vasculitis, Other Endocrine: No: Can's Disease, Robert's Disease, Diabetes Insipidus, Diabetes Mellitus, Hyperparathyroidism, Hyperthyroidism, Hypothyroidism, Osteopenia, SIADH, Other Dermatology: No: Basal Cell, Cellulitis, Eczema, Melanoma, Psoriasis, Squamous Cell, Other - Past Surgical History Past Surgical History: Yes: Cholecystectomy, Nephrectomy (right nephrectomy for cancer 12/08), Stent (biliary stent 08/08, removed 12/09), Valve Replacement (TAVR) - Alcohol/Substance Use Hx Alcohol Use: No History of Substance Use: reports: None - Smoking History Smoking history: Never smoked Have you smoked in the past 12 months: No - Social History Usual Living Arrangement: With Spouse ADL: Independent 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 History of Recent Travel: No Home Medications - Allergies Allergies/Adverse Reactions: Allergies Allergy/AdvReac Type Severity Reaction Status Date / Time No Known Allergies Allergy Verified 12/11/16 13:17 - Home Medications Home Medications: Ambulatory Orders Finasteride 5 mg PO DAILY 05/13/16 Carvedilol [Coreg] 6.25 mg PO BID tablet 10/03/16 Ursodiol 300 mg PO BID capsule 10/03/16 Montelukast Sodium [Singulair] 10 mg PO DAILY tablet 11/07/16 Atorvastatin Calcium 10 mg PO DAILY tablet 11/09/16 Tamsulosin HCl [Flomax -] 0.4 mg PO DAILY 11/23/16 Ursodiol [Actigall] 300 mg PO BID #180 capsule 11/23/16 Docusate Sodium [Colace -] 300 mg PO HS #21 cap 11/30/16 Pantoprazole Sodium [Protonix -] 40 mg PO DAILY #30 tab 11/30/16 Phenol [Chloraseptic -] 1 spray MM Q6HPO PRN #1 bottle 11/30/16 Polyethylene Glycol 3350 [Miralax 119 gm Btl -] 17 gm PO DAILY #1 bottle Carvedilol [Coreg -] 6.25 mg PO BID #60 tablet 12/02/16 Pantoprazole Sodium 40 mg PO DAILY 12/04/16 Family Disease History - Family Disease History Family Disease History: Other: Father ( 80's unclear cause), Mother ( 80 's CVA/NC), Brother (1 brother CHF, 1 brother stomach cancer) Review of Systems - Review of Systems Constitutional: reports: Loss of Appetite, Weakness Eyes: reports: No Symptoms HENT: reports: No Symptoms Neck: reports: No Symptoms Cardiovascular: reports: No Symptoms (had ASH on admission) Respiratory: reports: SOB on Exertion (improved) Gastrointestinal: reports: Melena Genitourinary: reports: No Symptoms Musculoskeletal: reports: No Symptoms Integumentary: reports: No Symptoms Neurological: reports: No Symptoms, Dizziness (improved) Endocrine: reports: No Symptoms Hematology/Lymphatic: reports: Excessive Bleeding Psychiatric: reports: No Symptoms Physical Exam Vital Signs: Vital Signs Temperature 97.6 F 12/14/16 10:00 Pulse Rate 70 12/14/16 10:29 Respiratory Rate 20 12/14/16 10:00 Blood Pressure 131/57 12/14/16 10:00 O2 Sat by Pulse Oximetry (%) 97 12/14/16 10:29 Constitutional: Yes: Well Nourished, No Distress, Calm, Pallor Eyes: Yes: WNL, Conjunctiva Clear, EOM Intact HENT: Yes: WNL, Atraumatic, Normocephalic Neck: Yes: WNL, Supple, Trachea Midline Cardiovascular: Yes: WNL, Regular Rate and Rhythm, S2 Respiratory: Yes: WNL, CTA Bilaterally Gastrointestinal: Yes: WNL, Normal Bowel Sounds, Soft Musculoskeletal: Yes: WNL Extremities: Yes: WNL Edema: No Integumentary: Yes: WNL Labs: CBC, BMP 12/14/16 05:00 12/14/16 05:00 Assessment/Plan Pt w Hypoproliferative anemia , probably mostly due to GI bleeding, but also likely has anemia of chronic disease and mild renal insuff ; no signs of microangiopathy on smear or autoimmune hemolysis, doubt hemolysis, ; suggest transfuse to > hgb 8 ; order haptoglobin,LDH,haptoglobin, B12/folate ; Thronbocytopenia- moderate which may also be multifactorial but mostly due to peripheral destruction (consumption) , perhaps dilutional , cannot r/o immune etiology ; doubt TTP or DIC (PT/PTT nl) ; doubt HIT (no heparin exposure) ; keep platelets> 80K due to active bleeding w Tx's and follow clinical course for now ; order the HIT assay anyway , fibrinogen; if platelets continue to drop and refractory to platelet tx's , would consider trial of IVIg . If pt improves , would recommend CT chest at some point to eval the R hilar fulness on cxr ; to try to avoid anti-platelet agents while pt still w clinical bleeding.
--- NOTE | 2016-12-14 12:15 | PN ---
Teaching Attending Note Name of Resident: Luis rFeire ATTENDING PHYSICIAN STATEMENT I saw and evaluated the patient. I reviewed the resident's note and discussed the case with the resident. I agree with the resident's findings and plan as documented. SUBJECTIVE: Patient seen and examined in the ICU. Still with occult blood loss. No further hematemesis. Required additional units of pRBC. Denies abdominal pain, shortness of breath, or chest pain. OBJECTIVE: Intake & Output 12/11/16 12/12/16 12/13/16 12/14/16 23:59 23:59 23:59 23:59 Intake Total 2230 1050 450 Output Total 1100 2600 1450 1300 Balance -1100 -370 -400 -850 Weight 186 lb 1.122 oz 182 lb 8.684 oz 184 lb 3.2 oz Last Vital Signs Temp Pulse Resp BP Pulse Ox 97.6 F 70 20 131/57 97 12/14/16 10:00 12/14/16 10:29 12/14/16 10:00 12/14/16 10:00 12/14/16 10:29 Active Medications Albuterol Sulfate (Ventolin 0.083% Nebulizer Soln -) 1 amp NEB Q6H PRN PRN Reason: SHORT OF BREATH/WHEEZING Atorvastatin Calcium (Lipitor -) 10 mg PO [facility] Last Admin: 12/13/16 22:34 Dose: 10 mg Carvedilol (Coreg -) 3.125 mg PO BID [facility] Last Admin: 12/14/16 11:03 Dose: Not Given Chlorhexidine Gluconate (Hibiclens For Decolonization -) 1 applic TP [facility] Last Admin: 12/13/16 22:34 Dose: 1 applic Docusate Sodium (Colace -) 300 mg PO [facility] Last Admin: 12/13/16 22:35 Dose: 300 mg Potassium Phosphate 30 mm/ (Sodium Chloride) 260 mls @ 62.5 mls/hr IVPB ONCE ONE Stop: 12/14/16 13:39 Last Admin: 12/14/16 11:14 Dose: 62.5 mls/hr Pantoprazole Sodium 80 mg/ (Sodium Chloride) 100 mls @ 10 mls/hr IVPB Q10H [facility] PRN Reason: 8 MG/HR Last Admin: 12/14/16 11:16 Dose: 10 mls/hr Mupirocin (Bactroban Ointment (For Decolonization) -) 1 applic NS BID [facility] Last Admin: 12/14/16 10:00 Dose: 1 applic Senna (Senna -) 2 tab PO HS [facility] Last Admin: 12/13/16 22:35 Dose: 2 tab Gen: NAD at rest Heart: RRR Lung: decreased breath sounds at the bases Abd: soft, nontender Ext: + edema Laboratory Results - last 24 hr 12/11/16 12/11/16 12/11/16 15:34 15:34 15:34 WBC 6.1 RBC 1.91 L D Hgb 6.3 L* D Hct 18.6 L D MCV 97.3 H MCH 33.2 MCHC 34.1 RDW 16.9 H Plt Count 106 L MPV 9.0 Neutrophils % 82.7 D Lymphocytes % 8.7 D Monocytes % 6.7 Eosinophils % 1.4 Basophils % 0.5 PT with INR 12.90 H INR 1.17 H PTT (Actin FS) 26.8 L VBG pH 7.41 POC VBG pCO2 43.6 POC VBG pO2 29.3 D Mixed VBG HCO3 27.1 H Sodium Potassium Chloride Carbon Dioxide Anion Gap BUN Creatinine Creat Clearance w eGFR Random Glucose Lactic Acid Calcium Phosphorus Magnesium Iron TIBC Iron Saturation Total Bilirubin AST ALT Alkaline Phosphatase Creatine Kinase Troponin I Total Protein Albumin Urine Color Urine Appearance Urine pH Ur Specific [place] Urine Protein Urine Glucose (UA) Urine Ketones Urine Blood Urine Nitrite Urine Bilirubin Urine Urobilinogen Urine RBC Urine WBC Ur Epithelial Cells Urine Bacteria Urine Mucus Blood Type Antibody Screen Crossmatch 12/11/16 12/11/16 12/11/16 15:34 15:34 15:34 WBC RBC Hgb Hct MCV MCH MCHC RDW Plt Count MPV Neutrophils % Lymphocytes % Monocytes % Eosinophils % Basophils % PT with INR INR PTT (Actin FS) VBG pH POC VBG pCO2 POC VBG pO2 Mixed VBG HCO3 Sodium 138 Potassium 4.4 Chloride 102 Carbon Dioxide 27 Anion Gap 9 BUN 48 H D Creatinine 2.1 H D Creat Clearance w eGFR 29.95 Random Glucose 95 D Lactic Acid 1.5 Calcium 8.2 L Phosphorus Magnesium Iron TIBC Iron Saturation Total Bilirubin 0.5 AST 17 D ALT 11 L D Alkaline Phosphatase 69 D Creatine Kinase 75 Troponin I 0.04 D Total Protein 4.8 L Albumin 2.4 L Urine Color Urine Appearance Urine pH Ur Specific [place] Urine Protein Urine Glucose (UA) Urine Ketones Urine Blood Urine Nitrite Urine Bilirubin Urine Urobilinogen Urine RBC Urine WBC Ur Epithelial Cells Urine Bacteria Urine Mucus Blood Type A POSITIVE Antibody Screen Negative Crossmatch See Detail 12/11/16 12/13/16 12/13/16 22:36 05:10 19:22 WBC 7.4 D RBC 2.23 L Hgb 7.2 L Hct 21.0 L MCV 94.0 MCH 32.5 MCHC 34.5 RDW 16.7 H Plt Count 85 L D MPV 9.5 Neutrophils % Lymphocytes % Monocytes % Eosinophils % Basophils % PT with INR INR PTT (Actin FS) VBG pH POC VBG pCO2 POC VBG pO2 Mixed VBG HCO3 Sodium Potassium Chloride Carbon Dioxide Anion Gap BUN Creatinine Creat Clearance w eGFR Random Glucose Lactic Acid Calcium Phosphorus Magnesium Iron 138 TIBC 182 L Iron Saturation 76 H Total Bilirubin AST ALT Alkaline Phosphatase Creatine Kinase Troponin I Total Protein Albumin Urine Color Straw Urine Appearance Clear Urine pH 5.0 Ur Specific [place] 1.010 Urine Protein Negative Urine Glucose (UA) Negative Urine Ketones Negative Urine Blood 3+ H Urine Nitrite Negative Urine Bilirubin Negative Urine Urobilinogen Negative Urine RBC <1 Urine WBC <1 Ur Epithelial Cells Rare Urine Bacteria Rare Urine Mucus Rare Blood Type Antibody Screen Crossmatch 12/14/16 12/14/16 12/14/16 03:00 05:00 05:00 WBC 7.8 7.2 RBC 2.29 L 2.27 L Hgb 7.3 L 7.3 L Hct 20.9 L 20.8 L MCV 91.3 91.5 MCH 32.1 31.9 MCHC 35.2 34.9 RDW 15.9 16.5 H Plt Count 63 L D 65 L MPV 9.2 9.5 Neutrophils % 74.8 Lymphocytes % 10.7 D Monocytes % 6.1 Eosinophils % 8.0 H Basophils % 0.4 PT with INR INR PTT (Actin FS) VBG pH POC VBG pCO2 POC VBG pO2 Mixed VBG HCO3 Sodium 140 Potassium 4.1 Chloride 104 Carbon Dioxide 27 Anion Gap 9 BUN 58 H Creatinine 1.4 H D Creat Clearance w eGFR 47.83 Random Glucose 85 Lactic Acid Calcium 8.1 L Phosphorus 2.3 L Magnesium 1.9 Iron TIBC Iron Saturation Total Bilirubin 0.6 AST 19 ALT 11 L Alkaline Phosphatase 59 Creatine Kinase Troponin I Total Protein 4.3 L Albumin 2.2 L Urine Color Urine Appearance Urine pH Ur Specific [place] Urine Protein Urine Glucose (UA) Urine Ketones Urine Blood Urine Nitrite Urine Bilirubin Urine Urobilinogen Urine RBC Urine WBC Ur Epithelial Cells Urine Bacteria Urine Mucus Blood Type Antibody Screen Crossmatch ASSESSMENT AND PLAN: GI Bleed due to gastric ulcers Acute Blood Loss Anemia CAD S/P PCI Aortic Stenosis s/p TAVR LV Systolic Dysfunction h/o Cholangitis CKD Hx of Right Nephrectomy - Heme / Hematology follow up noted - monitor H/H - Normal transfusion thresholds - protonix - Maintain large bore peripheral access - PO per GI - hold all anticoagulation, antiplatelets - Mechanical VTE prophylaxis Dr Ledesma Critical care time spent in reviewing chart, evaluating patient and formulating plan 35 min
--- NOTE | 2016-12-14 12:43 | PN ---
Progress Note (short form) - Note Progress Note: + Melenotic stool noted by RN yesterday No abdominal pain No nausea/vomiting Vital Signs Period Temp Pulse Resp BP Sys/Hinkle Pulse Ox Last 24 Hr 97.6 F-98.7 F 63-79 16-20 96-131/47-92 96-100 Abd soft, NT CBC, BMP 12/14/16 05:00 12/14/16 05:00 Transfuse PRBCs GI- following Planning colonoscopy If continues to bleed, may require embolization by Interventional radiology
--- NOTE | 2016-12-14 13:25 | PN ---
Teaching Attending Note Name of Resident: Jerome Martin ATTENDING PHYSICIAN STATEMENT I saw and evaluated the patient. I reviewed the resident's note and discussed the case with the resident. I agree with the resident's findings and plan as documented. SUBJECTIVE:asymptomatic. requesting to eat and go home. denies CP, SOB< fever, chillss, N/V/C/D. reported by RN to have 2 maroon colored BM in past 24H OBJECTIVE: Last Vital Signs Temp Pulse Resp BP Pulse Ox 97.6 F 72 18 119/60 97 12/14/16 10:00 12/14/16 12:00 12/14/16 12:00 12/14/16 12:00 12/14/16 10:29 General NAD CV S1 S2 + murmur Lungs CTA B/L no wheezing/rales/rhonchi Abdomen soft NT/ND obese Extremities no pedal edema ASSESSMENT AND PLAN: 86yo M with PMH CAD s/p stent, CKD, , with recent admission for bacteremia and GI bleed from ERCP procedure and recently discharged on 11/30/16 and was re- admitted after mechanical fall and found to have hgb 6.3 1. Upper GI bleed- + maroon BM with low Hgb not responding to transfusion. NPO. plan for colonoscopy today vs bleeding scan. received an additional 1 unit PRBC last night and currently receiving PRBC #6. closely monitor Hgb with serial checks. PPI BID. surgery on standby. GI on board 2. HTN- normotensive. cont coreg 3. thrombocytopenia- continuing to trend down. hematology evaluating with plans to transfuse platelets as pt is actively bleeding and source unknown. HIT assay and autoimmune workup. 4. Mechanical fall-likley due to hypotension vs acute anemia claims to not have hit his head. XR of his hips negative for acute pathology. PT eval when medically optimized 5. Constipation- resolved 6. Pulmonary nodule- incidental 5mm LLL pulmonary nodule. will need CT scan to further evaluate 7. CAD s/p stent- will start low dose asa in 2 weeks after GI follow up 8. 9. CKD- at baseline 10. DVT ppx- SCD 11. MICU monitoring. The care of this patient involved high complexity decision making to prevent further life threatening deterioration of the patient's condition and/or to evaluate & treat vital organ system(s) failure or risk of failure. 40 minutes
--- NOTE | 2016-12-14 14:39 | PN ---
Progress Note, Physician History of Present Illness: EGD showed nonbleeding gastric ulcers, receiving transfusion. - Current Medication List Current Medications: Active Medications Albuterol Sulfate (Ventolin 0.083% Nebulizer Soln -) 1 amp NEB Q6H PRN PRN Reason: SHORT OF BREATH/WHEEZING Atorvastatin Calcium (Lipitor -) 10 mg PO [facility] Last Admin: 12/13/16 22:34 Dose: 10 mg Carvedilol (Coreg -) 3.125 mg PO BID [facility] Last Admin: 12/14/16 11:03 Dose: Not Given Chlorhexidine Gluconate (Hibiclens For Decolonization -) 1 applic TP [facility] Last Admin: 12/13/16 22:34 Dose: 1 applic Docusate Sodium (Colace -) 300 mg PO [facility] Last Admin: 12/13/16 22:35 Dose: 300 mg Pantoprazole Sodium 80 mg/ (Sodium Chloride) 100 mls @ 10 mls/hr IVPB Q10H [facility] PRN Reason: 8 MG/HR Last Admin: 12/14/16 11:16 Dose: 10 mls/hr Mupirocin (Bactroban Ointment (For Decolonization) -) 1 applic NS BID [facility] Last Admin: 12/14/16 10:00 Dose: 1 applic Senna (Senna -) 2 tab PO [facility] Last Admin: 12/13/16 22:35 Dose: 2 tab - Objective Vital Signs: Vital Signs Temperature 97.6 F 12/14/16 10:00 Pulse Rate 72 12/14/16 12:00 Respiratory Rate 18 12/14/16 12:00 Blood Pressure 119/60 12/14/16 12:00 O2 Sat by Pulse Oximetry (%) 97 12/14/16 10:29 Constitutional: Yes: No Distress, Calm Neck: Yes: Supple Cardiovascular: Yes: Regular Rate and Rhythm, Murmur (2/6 SM) Respiratory: Yes: Regular, Diminished Gastrointestinal: Yes: Soft, Hypoactive Bowel Sounds Edema: No Labs: CBC, BMP 12/14/16 05:00 12/14/16 05:00 INR, PTT INR 1.16 (0.82-1.09) H 12/12/16 05:15 Problem List - Problems (1) Anemia Code(s): D64.9 - ANEMIA, UNSPECIFIED Qualifiers: Anemia type: unspecified type Qualified Code(s): D64.9 - Anemia, unspecified (2) GI (gastrointestinal hemorrhage) Code(s): K92.2 - GASTROINTESTINAL HEMORRHAGE, UNSPECIFIED Qualifiers: GI bleed type/associated pathology: melena Qualified Code(s): K92.1 - Melena (3) CAD (coronary artery disease) Code(s): I25.10 - ATHSCL HEART DISEASE OF [place] CORONARY ARTERY W/O ANG PCTRS Qualifiers: Coronary Disease-Associated Artery/Lesion type: unspecified vessel or lesion type [place] vs. transplanted heart: [place] heart Associated angina: without angina Qualified Code(s): I25.10 - Atherosclerotic heart disease of [place] coronary artery without angina pectoris (4) CKD (chronic kidney disease) Code(s): N18.9 - CHRONIC KIDNEY DISEASE, UNSPECIFIED Qualifiers: Chronic kidney disease stage: stage 3 (moderate) Qualified Code(s): N18.3 - Chronic kidney disease, stage 3 (moderate) (5) History of percutaneous coronary intervention Code(s): Z98.890 - OTHER SPECIFIED POSTPROCEDURAL STATES (6) Hypercholesterolemia Code(s): E78.00 - PURE HYPERCHOLESTEROLEMIA, UNSPECIFIED (7) Left bundle branch block Code(s): I44.7 - LEFT BUNDLE-BRANCH BLOCK, UNSPECIFIED (8) Renal cancer Code(s): C64.9 - MALIGNANT NEOPLASM OF UNSP KIDNEY, EXCEPT RENAL PELVIS Qualifiers: Laterality: right Qualified Code(s): C64.1 - Malignant neoplasm of right kidney, except renal pelvis (9) S/P ERCP Code(s): Z98.890 - OTHER SPECIFIED POSTPROCEDURAL STATES (10) S/P TAVR (transcatheter aortic valve replacement) Code(s): Z95.2 - PRESENCE OF PROSTHETIC HEART VALVE (11) S/P laparoscopic cholecystectomy Code(s): Z90.49 - ACQUIRED ABSENCE OF OTHER SPECIFIED PARTS OF DIGESTIVE TRACT (12) Hypertension Code(s): I10 - ESSENTIAL (PRIMARY) HYPERTENSION Qualifiers: Hypertension type: essential hypertension Qualified Code(s): I10 - Essential (primary) hypertension (13) Gastric ulcer due to nonsteroidal anti-inflammatory drug (NSAID) Code(s): K25.9 - GASTRIC ULCER, UNSP ACUTE OR CHRONIC, W/O HEMOR OR PERF T39.395A - ADVERSE EFFECT OF NONSTEROIDAL ANTI-INFLAMMATORY DRUGS, INIT (14) Thrombocytopenia Code(s): D69.6 - THROMBOCYTOPENIA, UNSPECIFIED Assessment/Plan 08/08/2016 Echo: Normal LV and RV size with severely decreased LV systolic fxn, mod-severe decrease RV fxn, mod MR, mild TR 1. UGI bleed referable to gastric ulcers in fundus 2. LV systolic dysfunction 3. Aortic stenosis Post TAVR 4. Coronary artery disease, s/p PCI/stent, angina 5. Hypertension 6. h/o ERCP, biliary stent implant/removal and stone retrieval for ascending cholangitis leading to sepsis 7. 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 Anemia post transfusion 9. Thrombocytopenia PLAN: 1. Continue Protonix gtt, monitor Hgb and Plt post transfusion and repeat as needed 2. Continue Carvedilol 3.125 bid now that oral intake resumed 3. Continue Lipitor 10 qd and follow LFTs now that oral intake resumed 4. Resume antiplatelet after 2 weeks of healing with PPI
[2016-12-14 15:48] LABS: LDH 195 U/L (87-241)
--- NOTE | 2016-12-14 16:35 | PN ---
Physical Exam: SUBJECTIVE: Patient seen and examined at bedside. he had 2 BM with maroon colored stool last night per nurse. patient is asymptomatic and is asking to go home. He denies any fever, chills, lightheadedness, SOB, chest pain, N/V/D/C. His hip pain is better today. OBJECTIVE: Vital Signs Period Temp Pulse Resp BP Sys/Hinkle Pulse Ox Last 24 Hr 97.6 F-98.7 F 63-79 16-20 96-131/47-60 96-100 GENERAL: The patient is awake, alert, and fully oriented, in no acute distress. HEAD: Normal with no signs of trauma. EYES: sclera anicteric, conjunctiva pallor. No ptosis. ENT:dry mucous membranes. LUNGS: Breath sounds equal, clear to auscultation bilaterally, no wheezes, no crackles, no accessory muscle use. HEART: Regular rate and rhythm, S1, S2 2/6 systolic murmur,no rub or gallop. ABDOMEN: Soft, nontender, nondistended, normoactive bowel sounds, no guarding, no rebound. EXTREMITIES: warm, well-perfused, no edema. NEUROLOGICAL:good mentation PSYCH: Normal mood, normal affect. SKIN: Warm, dry, no rashes or lesions noted Laboratory Results - last 24 hr 12/11/16 12/13/16 12/13/16 22:36 05:10 19:22 WBC 7.4 D RBC 2.23 L Hgb 7.2 L Hct 21.0 L MCV 94.0 MCH 32.5 MCHC 34.5 RDW 16.7 H Plt Count 85 L D MPV 9.5 Neutrophils % Lymphocytes % Monocytes % Eosinophils % Basophils % Sodium Potassium Chloride Carbon Dioxide Anion Gap BUN Creatinine Creat Clearance w eGFR Random Glucose Calcium Phosphorus Magnesium Iron 138 TIBC 182 L Iron Saturation 76 H Total Bilirubin AST ALT Alkaline Phosphatase LD Total Total Protein Albumin Urine Color Straw Urine Appearance Clear Urine pH 5.0 Ur Specific [place] 1.010 Urine Protein Negative Urine Glucose (UA) Negative Urine Ketones Negative Urine Blood 3+ H Urine Nitrite Negative Urine Bilirubin Negative Urine Urobilinogen Negative Urine RBC <1 Urine WBC <1 Ur Epithelial Cells Rare Urine Bacteria Rare Urine Mucus Rare 12/14/16 12/14/16 12/14/16 03:00 05:00 05:00 WBC 7.8 7.2 RBC 2.29 L 2.27 L Hgb 7.3 L 7.3 L Hct 20.9 L 20.8 L MCV 91.3 91.5 MCH 32.1 31.9 MCHC 35.2 34.9 RDW 15.9 16.5 H Plt Count 63 L D 65 L MPV 9.2 9.5 Neutrophils % 74.8 Lymphocytes % 10.7 D Monocytes % 6.1 Eosinophils % 8.0 H Basophils % 0.4 Sodium 140 Potassium 4.1 Chloride 104 Carbon Dioxide 27 Anion Gap 9 BUN 58 H Creatinine 1.4 H D Creat Clearance w eGFR 47.83 Random Glucose 85 Calcium 8.1 L Phosphorus 2.3 L Magnesium 1.9 Iron TIBC Iron Saturation Total Bilirubin 0.6 AST 19 ALT 11 L Alkaline Phosphatase 59 LD Total 195 Total Protein 4.3 L Albumin 2.2 L Urine Color Urine Appearance Urine pH Ur Specific [place] Urine Protein Urine Glucose (UA) Urine Ketones Urine Blood Urine Nitrite Urine Bilirubin Urine Urobilinogen Urine RBC Urine WBC Ur Epithelial Cells Urine Bacteria Urine Mucus Active Medications Generic Name Dose Route Start Last Admin Trade Name Freq PRN Reason Stop Dose Admin Acetylcysteine 1,200 mg 12/14/16 15:15 Mucomyst 20 Oral / Inh Use Only* PO 12/16/16 15:14 BID SUBHA Albuterol Sulfate 1 amp 12/13/16 18:26 Ventolin 0.083% Nebulizer Soln - NEB Q6H PRN SHORT OF BREATH/WHEEZING Atorvastatin Calcium 10 mg 12/13/16 22:00 12/13/16 22:34 Lipitor - PO 10 mg HS SUBHA Administration Carvedilol 3.125 mg 12/13/16 22:00 12/14/16 11:03 Coreg - PO Not Given BID SUBHA Chlorhexidine Gluconate 1 applic 12/13/16 22:00 12/13/16 22:34 Hibiclens For Decolonization - TP 1 applic HS SUBHA Administration Docusate Sodium 300 mg 12/13/16 22:00 12/13/16 22:35 Colace - PO 300 mg HS SUBHA Administration Pantoprazole Sodium 80 mg/ 100 mls @ 10 mls/hr 12/14/16 10:00 12/14/16 11:16 Sodium Chloride IVPB 10 mls/hr Q10H SUBHA Administration 8 MG/HR Mupirocin 1 applic 12/13/16 22:00 09/22/17 10:00 Bactroban Ointment (For Decolonization) - NS 1 applic BID SUBHA Administration Senna 2 tab 12/13/16 22:00 12/13/16 22:35 Senna - PO 2 tab HS SUBHA Administration ASSESSMENT/PLAN 86M w/ extensive PMH CAD, S/P stent , CKD, , choledocholithiasis and cholangitis, most recently 11/24 s/p ERCP and CBD stent removal, who presented with mechanical fall, found to have a Hgb of 6.3 and melena in the ED, admitted to the ICU for suspected upper GI bleed. #GI bleed- likely upper, r/o lower(unlikely) - total of 6 units of PRBCs has been transfused -lasix 20mg IV daily -vitk , DDAVP,protonix 40 BID -GI on board- Dr. Parks, EGD showed 2 gastric ulcers in the fundus with no active bleeding or visible vessel. possible colonoscopy today vs bleeding scan - 2 large bore -NPO -surgery on board- Dr. Weems -cardiology on board- Dr. Hays -hematology on board- Dr. Garcia -f/u CBC after 6 units are given, another unit will be transfer today , -f/u CBC, CMP, Mg, Ph, PT/PTT/INR in am -f/u UCx, Bcx, CXR # thrombocytopenia * continuing to trend down. * hematology evaluating with plans to transfuse platelets as pt is actively bleeding and source unknown. * HIT assay and autoimmune workup. #fall on buttocks, most likely mechanical, vs hypotension vs acute anemia * complain of pain in the left hip * denies any dizzines or loss of consciousness before and after the fall, denies to heat his head * pelvic XR negative for fracture * consider CT if pain persist * pain control * PT when stable #HTN * currently hypotensive * will monitor closely * will give IV fluids as needed * start carvedilol, (hold if systolic BP < 130 OR HR < 60) # CKD, stable * at his base line #CAD * hold atorvastatin * Hold blavix for now due to bleeding * Cardiology recommend to use ASA instead of plavix when he is stable and hemoglobin are stable.2 weeks after GI follow up * #Pulmonary nodule * incidental 5mm LLL pulmonary nodule. * will need CT scan to further evaluate * F/U as out patient #Urethral Strictures s/p Dilation * hold finasteride and flomax #Hx of choledocholithiasis * hold ursodiol #constipation * continue colace, senna #, * f/u as out patient #Porcine Valve Replacement * F/U as out patient #FEN/PPx -no fluids -electrolytes wnl - advanced to low sodium diet -protonix 40 BID -SCDs, no pharmacology anticoagulation for now #Dispo * Admit to ICU due to upper GI bleed * consider transfer to med surg when Hgb stable Visit type - Emergency Visit Emergency Visit: Yes ED Registration Date: 12/11/16 Care time: The patient presented to the Emergency Department on the above date and was hospitalized for further evaluation of their emergent condition. - New Patient This patient is new to me today: No - Critical Care Critical Care patient: Yes Total Critical Care Time (in minutes): 40 Critical Care Statement: The care of this patient involved high complexity decision making to prevent further life threatening deterioration of the patient 's condition and/or to evaluate & treat vital organ system(s) failure or risk of failure.
[2016-12-14] MEDS: ACETYLCYSTEINE 20% 200MG/ML 30 ML VIAL *FOR ORAL / INH USE ONLY PO SCH ×2 (16:55→22:30)
--- NOTE | 2016-12-14 17:08 | CONSULT ---
Consult Consult Specialty:: Nephrology Reason for Consultation:: CRISS and CKD - History of Present Illness Chief Complaint: weakness History of Present Illness: Pt is an 86 year old male who is well known to me from previous admissions who presents for weakness. He was found to have a GI bleed. I was called to evaluate him for CKD and for risk for contrast administration. He is awake and alert. He denies shortness of breath. He denies abdominal pain. He is awake of his clinical condition and of the GI bleed. He did have CRISS in the past which required HD. - History Source History Provided By: Patient - Past Medical History Cardio/Vascular: Yes: Aortic Stenosis (Post TAVR at [facility] in 2015), CAD (s/p cardiac stent/ PCI 1995), HTN, Hyperlipdemia Gastrointestinal: Yes: Diverticulosis, Peptic Ulcer Disease Hepatobiliary: Yes: Cholelithiasis, Choledocholithiasis (ERCP x 3 with stent insertion and removal) Renal/: Yes: Renal Failure (required dialysis in 08/08 following sepsis with ATN), Renal Inusuff, Cancer (Renal CA with right nephrectomy), Renal Calculi, Other (urethral stricture s/p cystoscopy, nephrectomy for RCC) Musculoskeletal: Yes: Other (DJD) - Past Surgical History Past Surgical History: Yes: Cholecystectomy, Nephrectomy (right nephrectomy for cancer 12/08), Stent (biliary stent 08/08, removed 12/09), Valve Replacement (TAVR) - Alcohol/Substance Use Hx Alcohol Use: No History of Substance Use: reports: None - Smoking History Smoking history: Never smoked Have you smoked in the past 12 months: No - Social History Usual Living Arrangement: With Spouse ADL: Independent 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 History of Recent Travel: No Home Medications - Allergies Allergies/Adverse Reactions: Allergies Allergy/AdvReac Type Severity Reaction Status Date / Time No Known Allergies Allergy Verified 12/11/16 13:17 - Home Medications Home Medications: Ambulatory Orders Finasteride 5 mg PO DAILY 05/13/16 Carvedilol [Coreg] 6.25 mg PO BID tablet 10/03/16 Ursodiol 300 mg PO BID capsule 10/03/16 Montelukast Sodium [Singulair] 10 mg PO DAILY tablet 11/07/16 Atorvastatin Calcium 10 mg PO DAILY tablet 11/09/16 Tamsulosin HCl [Flomax -] 0.4 mg PO DAILY 11/23/16 Ursodiol [Actigall] 300 mg PO BID #180 capsule 11/23/16 Docusate Sodium [Colace -] 300 mg PO HS #21 cap 11/30/16 Pantoprazole Sodium [Protonix -] 40 mg PO DAILY #30 tab 11/30/16 Phenol [Chloraseptic -] 1 spray MM Q6HPO PRN #1 bottle 11/30/16 Polyethylene Glycol 3350 [Miralax 119 gm Btl -] 17 gm PO DAILY #1 bottle Carvedilol [Coreg -] 6.25 mg PO BID #60 tablet 12/02/16 Pantoprazole Sodium 40 mg PO DAILY 12/04/16 Family Disease History - Family Disease History Family Disease History: Other: Father ( 80's unclear cause), Mother ( 80 's CVA/TN), Brother (1 brother CHF, 1 brother stomach cancer) Review of Systems - Review of Systems Constitutional: reports: Malaise Eyes: reports: No Symptoms HENT: reports: No Symptoms Neck: reports: No Symptoms Cardiovascular: reports: No Symptoms Respiratory: reports: No Symptoms Gastrointestinal: reports: Rectal Bleeding Musculoskeletal: reports: Muscle Weakness Neurological: reports: No Symptoms Endocrine: reports: No Symptoms Psychiatric: reports: No Symptoms Physical Exam Vital Signs: Vital Signs Temperature 98.4 F 12/14/16 14:00 Pulse Rate 70 12/14/16 16:00 Respiratory Rate 18 12/14/16 16:00 Blood Pressure 103/55 12/14/16 16:00 O2 Sat by Pulse Oximetry (%) 97 12/14/16 10:29 Constitutional: Yes: Calm Eyes: Yes: Conjunctiva Clear HENT: Yes: Atraumatic Cardiovascular: Yes: S1, S2 Respiratory: Yes: CTA Bilaterally Gastrointestinal: Yes: Soft Renal/: Yes: [place] Present Edema: Yes Edema: LLE: 1+, RLE: 1+ Neurological: Yes: Oriented Psychiatric: Yes: Oriented Labs: CBC, BMP 12/14/16 05:00 12/14/16 05:00 Laboratory Tests 11/25/16 11/27/16 11/30/16 07:15 06:00 08:45 WBC Hgb Sodium Potassium Chloride Carbon Dioxide Anion Gap BUN Creatinine 1.9 H 1.8 H 1.7 H Urine Color Urine Appearance Urine pH Ur Specific [place] Urine Protein Urine Glucose (UA) Urine Ketones Urine Blood Urine Nitrite Urine Bilirubin Urine Urobilinogen 12/06/16 12/11/16 12/11/16 07:25 15:34 22:36 WBC Hgb Sodium Potassium Chloride Carbon Dioxide Anion Gap BUN Creatinine 2.1 H 2.1 H D Urine Color Straw Urine Appearance Clear Urine pH 5.0 Ur Specific [place] 1.010 Urine Protein Negative Urine Glucose (UA) Negative Urine Ketones Negative Urine Blood 3+ H Urine Nitrite Negative Urine Bilirubin Negative Urine Urobilinogen Negative 12/12/16 12/13/16 12/13/16 05:15 05:10 19:22 WBC Hgb 7.2 L Sodium Potassium Chloride Carbon Dioxide Anion Gap BUN Creatinine 2.0 H 1.8 H Urine Color Urine Appearance Urine pH Ur Specific [place] Urine Protein Urine Glucose (UA) Urine Ketones Urine Blood Urine Nitrite Urine Bilirubin Urine Urobilinogen 12/14/16 12/14/16 12/14/16 03:00 05:00 05:00 WBC 7.2 Hgb 7.3 L 7.3 L Sodium 140 Potassium 4.1 Chloride 104 Carbon Dioxide 27 Anion Gap 9 BUN 58 H Creatinine 1.4 H D Urine Color Urine Appearance Urine pH Ur Specific [place] Urine Protein Urine Glucose (UA) Urine Ketones Urine Blood Urine Nitrite Urine Bilirubin Urine Urobilinogen Imaging - Results Chest X-ray: Report Reviewed Problem List - Problems (1) Anemia Code(s): D64.9 - ANEMIA, UNSPECIFIED Qualifiers: Anemia type: unspecified type Qualified Code(s): D64.9 - Anemia, unspecified (2) GI (gastrointestinal hemorrhage) Code(s): K92.2 - GASTROINTESTINAL HEMORRHAGE, UNSPECIFIED Qualifiers: GI bleed type/associated pathology: melena Qualified Code(s): K92.1 - Melena (3) CRISS (acute kidney injury) Code(s): N17.9 - ACUTE KIDNEY FAILURE, UNSPECIFIED (4) CAD (coronary artery disease) Code(s): I25.10 - ATHSCL HEART DISEASE OF [place] CORONARY ARTERY W/O ANG PCTRS Qualifiers: Coronary Disease-Associated Artery/Lesion type: unspecified vessel or lesion type [place] vs. transplanted heart: [place] heart Associated angina: without angina Qualified Code(s): I25.10 - Atherosclerotic heart disease of [place] coronary artery without angina pectoris (5) CKD (chronic kidney disease) Code(s): N18.9 - CHRONIC KIDNEY DISEASE, UNSPECIFIED Qualifiers: Chronic kidney disease stage: stage 3 (moderate) Qualified Code(s): N18.3 - Chronic kidney disease, stage 3 (moderate) Assessment/Plan Current Medications Generic Name Dose Route Start Last Admin Trade Name Freq PRN Reason Stop Dose Admin Acetylcysteine 1,200 mg 12/14/16 15:15 12/14/16 16:55 Mucomyst 20 Oral / Inh Use Only* PO 12/16/16 15:14 1,200 mg BID SUBHA Administration Albuterol Sulfate 1 amp 12/13/16 18:26 Ventolin 0.083% Nebulizer Soln - NEB Q6H PRN SHORT OF BREATH/WHEEZING Atorvastatin Calcium 10 mg 12/13/16 22:00 12/13/16 22:34 Lipitor - PO 10 mg HS SUBHA Administration Carvedilol 3.125 mg 12/13/16 22:00 12/14/16 11:03 Coreg - PO Not Given BID SUBHA Chlorhexidine Gluconate 1 applic 12/13/16 22:00 12/13/16 22:34 Hibiclens For Decolonization - TP 1 applic HS SUBHA Administration Docusate Sodium 300 mg 12/13/16 22:00 12/13/16 22:35 Colace - PO 300 mg HS SUBHA Administration Pantoprazole Sodium 80 mg/ 100 mls @ 10 mls/hr 12/14/16 10:00 12/14/16 11:16 Sodium Chloride IVPB 10 mls/hr Q10H SUBHA Administration 8 MG/HR Mupirocin 1 applic 12/13/16 22:00 12/14/16 10:00 Bactroban Ointment (For Decolonization) - NS 1 applic BID SUBHA Administration Senna 2 tab 12/13/16 22:00 12/13/16 22:35 Senna - PO 2 tab HS SUBHA Administration Impression 1. hx CKD 2. CRISS improving 3. choledocholithiasis 4. CAD 5. hx of Renal Cell Cancer s/p nephroectomy 6. aortic stenosis 7. GI bleed Plan - renal function is improving - pt is high risk for MOHSEN. Pt does understand the risk - prep with mucomyst and gently hydration as needed - pt is not getting a ct scan now however medical team will monitor his hg and do the scan if his hg drops further - check labs daily - pt has a baseline doctor chiropractic of about 1.7 - will follow Dr Medina
[2016-12-14 19:05] LABS: MCH 30.8 pg (25.7-33.7); MCHC 34.8 g/dl (32.0-35.9); MEAN CELL VOLUME 88.5 fl (80-96); MEAN PLT VOLUME 9.5 fl (7.5-11.1); PLATELET COUNT 65 K/MM3 (134-434); RDW 17.2 % (11.9-15.9); WHITE BLOOD COUNT 8.6 K/mm3 (4.0-10.0)
[2016-12-14] MEDS: CHLORHEXIDINE GLUCONATE 4% CLEANSER FOR DECOLONIZATION TP SCH (21:34)
[2016-12-14] MEDS: ATORVASTATIN CA 10 MG TABLET (FP) PO SCH (21:38)
[2016-12-14 22:08] LABS: MCH 31.2 pg (25.7-33.7); MEAN CELL VOLUME 86.6 fl (80-96); MEAN PLT VOLUME 9.4 fl (7.5-11.1); PLATELET COUNT 60 K/MM3 (134-434); RDW 16.6 % (11.9-15.9); WHITE BLOOD COUNT 8.2 K/mm3 (4.0-10.0)
[2016-12-15 05:57] LABS: BASOPHIL 0.2 % (0-2.0); EOSINOPHIL 10.9 % (0-4.5); MCH 31.3 pg (25.7-33.7); MCHC 35.4 g/dl (32.0-35.9); MEAN CELL VOLUME 88.4 fl (80-96); MEAN PLT VOLUME 9.5 fl (7.5-11.1); NEUTROPHILS 68.9 % (42.8-82.8); PLATELET COUNT 63 K/MM3 (134-434); RDW 16.9 % (11.9-15.9); WHITE BLOOD COUNT 6.8 K/mm3 (4.0-10.0)
[2016-12-15 06:27] LABS: ALBUMIN 2.2 g/dl (3.4-5.0); ANION GAP 5 (8-16); CALCIUM 7.9 mg/dL (8.5-10.1); CO2 27 mmol/L (21-32); CREATININE 1.3 mg/dL (0.7-1.3); GLUCOSE,RANDOM 87 mg/dL (74-106); MAGNESIUM 1.9 mg/dL (1.8-2.4); PHOSPHOROUS 3.4 mg/dL (2.5-4.9); SGOT/AST 18 U/L (15-37); SGPT/ALT 10 U/L (12-78); TOT PROT 4.2 g/dl (6.4-8.2)
[2016-12-15 06:28] LABS: ALK PHOS 53 U/L (45-117)
--- NOTE | 2016-12-15 07:23 | PN ---
Progress Note (short form) - Note Progress Note: asymptomatic. denies CP, SOB, fever, chills as per RN has had multiple maroon colored BM. Current Medications Generic Name Dose Route Start Last Admin Trade Name [place] PRN Reason Stop Dose Admin Acetylcysteine 1,200 mg 12/14/16 15:15 12/14/16 22:30 Mucomyst 20 Oral / Inh Use Only* PO 12/16/16 15:14 Not Given BID SUBHA Albuterol Sulfate 1 amp 12/13/16 18:26 Ventolin 0.083% Nebulizer Soln - NEB Q6H PRN SHORT OF BREATH/WHEEZING Atorvastatin Calcium 10 mg 12/13/16 22:00 12/14/16 21:38 Lipitor - PO 10 mg HS SUBHA Administration Carvedilol 3.125 mg 12/13/16 22:00 12/14/16 21:38 Coreg - PO 3.125 mg BID SUBHA Administration Chlorhexidine Gluconate 1 applic 12/13/16 22:00 12/14/16 21:34 Hibiclens For Decolonization - TP 1 applic HS SUHBA Administration Pantoprazole Sodium 80 mg/ 100 mls @ 10 mls/hr 12/14/16 10:00 12/14/16 21:34 Sodium Chloride IVPB 10 mls/hr Q10H SUBHA Administration 8 MG/HR Mupirocin 1 applic 12/13/16 22:00 12/14/16 21:34 Bactroban Ointment (For Decolonization) - NS 1 applic BID SUBHA Administration Last Vital Signs Temp Pulse Resp BP Pulse Ox 98.5 F 71 14 101/49 97 12/15/16 06:00 12/15/16 06:00 12/15/16 06:00 12/15/16 06:00 12/14/16 19:58 General NAD CV S1 S2 + murmur Lungs CTA B/L no wheezing/rales/rhonchi Abdomen soft NT/ND obese Extremities no pedal edema CBCD WBC 6.8 K/mm3 (4.0-10.0) 12/15/16 05:15 RBC 2.42 M/mm3 (4.00-5.60) L 12/15/16 05:15 Hgb 7.6 GM/dL (11.7-16.9) L D 12/15/16 05:15 Hct 21.4 % (35.4-49) L 12/15/16 05:15 MCV 88.4 fl (80-96) 12/15/16 05:15 MCHC 35.4 g/dl (32.0-35.9) 12/15/16 05:15 RDW 16.9 % (11.9-15.9) H 12/15/16 05:15 Plt Count 63 K/MM3 (134-434) L 12/15/16 05:15 MPV 9.5 fl (7.5-11.1) 12/15/16 05:15 CMP Sodium 141 mmol/L (136-145) 12/15/16 05:15 Potassium 4.2 mmol/L (3.5-5.1) 12/15/16 05:15 Chloride 109 mmol/L (98-107) H 12/15/16 05:15 Carbon Dioxide 27 mmol/L (21-32) 12/15/16 05:15 Anion Gap 5 (8-16) L 12/15/16 05:15 BUN 71 mg/dL (7-18) H D 12/15/16 05:15 Creatinine 1.3 mg/dL (0.7-1.3) 12/15/16 05:15 Creat Clearance w eGFR 52.10 (>60) 12/15/16 05:15 Calcium 7.9 mg/dL (8.5-10.1) L 12/15/16 05:15 Total Bilirubin 1.0 mg/dL (0.2-1.0) D 12/15/16 05:15 AST 18 U/L (15-37) 12/15/16 05:15 ALT 10 U/L (12-78) L 12/15/16 05:15 Alkaline Phosphatase 53 U/L (45-117) 12/15/16 05:15 Total Protein 4.2 g/dl (6.4-8.2) L 12/15/16 05:15 Albumin 2.2 g/dl (3.4-5.0) L 12/15/16 05:15 ASSESSMENT AND PLAN: 86yo M with PMH CAD s/p stent, CKD, , with recent admission for bacteremia and GI bleed from ERCP procedure and recently discharged on 11/30/16 and was re- admitted after mechanical fall and found to have hgb 6.3 1. Upper GI bleed- s/p 7 units PRBC this admission. + maroon BM with low Hgb not responding to transfusion. plan is for CTA to further locate source of bleeding. assuming source of bleeding is from previous sphincterotomy vs small bowel. for possible embolization. d/w cardio and agree that conservative management would likely be the most beneficial in this patient with significant cardiac history and high risk of mortality for invasive surgery. will transfuse 1 unit PRBC with lasix prn with goal hgb >8. PPI ggt. NPO. surgery on standby. GI on board 2. HTN- normotensive. cont coreg 3. thrombocytopenia- low in setting of active bleeding. was informed platelets were ordered but were not. will tranfuse platelets prior to PRBC goal for platelets >90. workup sent by hematology. 4. Mechanical fall-likley due to hypotension vs acute anemia claims to not have hit his head. XR of his hips negative for acute pathology. PT eval when medically optimized 5. Constipation- resolved 6. Pulmonary nodule- incidental 5mm LLL pulmonary nodule. will need CT scan to further evaluate 7. CAD s/p stent-goal to re-start asa after several weeks of inactive bleeding 8. 9. CKD- at baseline 10. DVT ppx- SCD 11. MICU monitoring. The care of this patient involved high complexity decision making to prevent further life threatening deterioration of the patient's condition and/or to evaluate & treat vital organ system(s) failure or risk of failure. 45 minutes Visit type - Emergency Visit Emergency Visit: Yes ED Registration Date: 12/11/16 Care time: The patient presented to the Emergency Department on the above date and was hospitalized for further evaluation of their emergent condition. - New Patient This patient is new to me today: No - Critical Care Critical Care patient: Yes Total Critical Care Time (in minutes): 40 Critical Care Statement: The care of this patient involved high complexity decision making to prevent further life threatening deterioration of the patient 's condition and/or to evaluate & treat vital organ system(s) failure or risk of failure. - Discharge Referral Referred to [facility] No
--- NOTE | 2016-12-15 07:49 | PN ---
Progress Note (short form) - Note Progress Note: Chief Complaint: Events noted, notes reviewed, denies any chest pain or dyspnea , recurrent GI bleed, sinus rhythm is noted with ICVD History of Present Illness: Seen and examined in the ICU. Events noted, notes reviewed, denies any chest pain or dyspnea, recurrent GI bleed, sinus rhythm is noted with ICVD Most likely source of bleed is AVM which are associated with aortic valve disease/aortic stenosis My personal recommendation is to manage the patient conservatively with prn PRBC and platelet transfusions with cautious utilization of IV diuretics considering his advanced cardiovascular disease including severe LV and RV dysfunction, CAD, TAVR and advanced age, maintain Hg equal or > 8.0 Echocardiography dated 08/08/2016 revealed Normal LV and RV size with severely decreased LV systolic function, mod-severe decrease RV function, moderate MR and mild TR - Current Medication List Current Medications Acetylcysteine (Mucomyst 20 Oral / Inh Use Only*) 1,200 mg PO BID [facility] Stop: 12/16/16 15:14 Last Admin: 12/14/16 16:55 Dose: 1,200 mg Albuterol Sulfate (Ventolin 0.083% Nebulizer Soln -) 1 amp NEB Q6H PRN PRN Reason: SHORT OF BREATH/WHEEZING Atorvastatin Calcium (Lipitor -) 10 mg PO [facility] Last Admin: 12/14/16 21:38 Dose: 10 mg Carvedilol (Coreg -) 3.125 mg PO BID [facility] Last Admin: 12/14/16 21:38 Dose: 3.125 mg Chlorhexidine Gluconate (Hibiclens For Decolonization -) 1 applic TP HS [facility] Last Admin: 12/14/16 21:34 Dose: 1 applic Pantoprazole Sodium 80 mg/ (Sodium Chloride) 100 mls @ 10 mls/hr IVPB Q10H [facility] PRN Reason: 8 MG/HR Last Admin: 12/14/16 21:34 Dose: 10 mls/hr Mupirocin (Bactroban Ointment (For Decolonization) -) 1 applic NS BID [facility] Last Admin: 12/14/16 21:34 Dose: 1 applic Review of Systems - Review of Systems Constitutional: no symptoms reported Respiratory: denies: Cough or Sputum Production Cardiovascular: as noted above Gastrointestinal: denies Nausea, Vomiting, Diarrhea, Constipation or Abdominal Pain, Persistent Bleed as noted above Genitourinary: No symptoms reported Musculoskeletal: Degenerative Joint Disease Endocrine: No symptoms reported - Objective Vital Signs: Last Vital Signs Temp Pulse Resp BP Pulse Ox 98.5 F 71 14 101/49 97 12/15/16 06:00 12/15/16 06:00 12/15/16 06:00 12/15/16 06:00 12/14/16 19:58 Intake & Output 12/12/16 12/13/16 12/14/16 12/15/16 23:59 23:59 23:59 23:59 Intake Total 2230 1050 1640 120 Output Total 2600 1450 3000 400 Balance -370 -400 -1360 -280 Weight 182 lb 8.684 oz 184 lb 3.2 oz 172 lb 6.424 oz Constitutional: No Distress, Calm, Pale Neck: Supple Negative JVD Cardiovascular: S1 S2 Regular Rate and Rhythm, Grade 2/6 Systolic Ejection Murmur Respiratory: Diminished at the Bases Gastrointestinal: Soft, Benign Normal Bowel Sounds Ext: No Edema Labs: CBC, BMP 12/15/16 05:15 12/15/16 05:15 INR, PTT INR 1.16 (0.82-1.09) H 12/12/16 05:15 Fibrinogen 170.0 mg/dL (238-498) L 12/15/16 05:15 Hepatic Panel Total Bilirubin 1.0 mg/dL (0.2-1.0) D 12/15/16 05:15 AST 18 U/L (15-37) 12/15/16 05:15 ALT 10 U/L (12-78) L 12/15/16 05:15 Alkaline Phosphatase 53 U/L (45-117) 12/15/16 05:15 Albumin 2.2 g/dl (3.4-5.0) L 12/15/16 05:15 Assessment/Plan ASSESSMENT: 1. Recurrent gastro-intestinal bleed, most likely related to AVM's 2. Coronary artery disease, post PCI/stent, angina pectoris 3. 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 Aortic stenosis Post AVR-TAVR 5. Hypertension 6. Anemia and thrombocytopenia 7. CKD with history of renal cancer post right nephrectomy 8. History of ERCP, biliary stent implant/removal and stone retrieval for ascending cholangitis PLAN: 1. Continue Protonix 2. Continue Carvedilol hemodynamics permitting 3. Continue Lipitor 4. As outlined above prn PRBC and platelet transfusions, maintain Hg equal or > 8.0 Huber Alexandre M.D.
[2016-12-15] MEDS ORDERED: FUROSEMIDE 40 MG/4 ML INJECTABLE VIAL IVPB SCH (07:57)
[2016-12-15] MEDS ORDERED: ACETAMINOPHEN 1000 MG/100 ML VIAL (NON FORMULARY) IVPB PRN (09:30)
--- NOTE | 2016-12-15 09:30 | PN ---
Progress Note (short form) - Note Progress Note: PULMONARY/CCM Pt seen and examined in the ICU. Maroon stools overnight, decreased H/H this AM. c/o left leg pain. No shortness of breath, chest pain, lightheadedness, dizziness. Last Vital Signs Temp Pulse Resp BP Pulse Ox 98.5 F 71 14 101/49 97 12/15/16 06:00 12/15/16 06:00 12/15/16 06:00 12/15/16 06:00 12/14/16 19:58 Intake & Output 12/12/16 12/13/16 12/14/16 12/15/16 23:59 23:59 23:59 23:59 Intake Total 2230 1050 1640 120 Output Total 2600 1450 3000 400 Balance -370 -400 -1360 -280 Weight 182 lb 8.684 oz 184 lb 3.2 oz 172 lb 6.424 oz Gen: NAD at rest Heart: RRR Lung: decreased breath sounds at the bases Abd: soft, nontender Ext: no edema CBC, BMP 12/15/16 05:15 12/15/16 05:15 Active Medications Acetylcysteine (Mucomyst 20 Oral / Inh Use Only*) 1,200 mg PO BID [facility] Stop: 12/16/16 15:14 Last Admin: 12/14/16 22:30 Dose: Not Given Albuterol Sulfate (Ventolin 0.083% Nebulizer Soln -) 1 amp NEB Q6H PRN PRN Reason: SHORT OF BREATH/WHEEZING Atorvastatin Calcium (Lipitor -) 10 mg PO HS [facility] Last Admin: 12/14/16 21:38 Dose: 10 mg Carvedilol (Coreg -) 3.125 mg PO BID [facility] Last Admin: 12/14/16 21:38 Dose: 3.125 mg Chlorhexidine Gluconate (Hibiclens For Decolonization -) 1 applic TP HS [facility] Last Admin: 12/14/16 21:34 Dose: 1 applic Furosemide (Lasix Injection -) 20 mg IVPB [employer] [facility] Stop: 12/15/16 12:00 Pantoprazole Sodium 80 mg/ (Sodium Chloride) 100 mls @ 10 mls/hr IVPB Q10H [facility] PRN Reason: 8 MG/HR Last Admin: 12/14/16 21:34 Dose: 10 mls/hr Mupirocin (Bactroban Ointment (For Decolonization) -) 1 applic NS BID [facility] Last Admin: 12/14/16 21:34 Dose: 1 applic A/P GI Bleed Gastric Ulcers Acute Blood Loss Anemia Thrombocytopenia CAD s/p stent Aortic Stenosis s/p TAVR LV Systolic Dysfunction h/o Cholangitis Acute on CKD h/o R Nephrectomy - monitor H/H, platelets - transfuse as needed - protonix - ensure large bore peripheral access - for bleeding scan - hold all anticoagulation, antiplatelets - DVT prophylaxis - continue ICU monitoring critical care time spent in reviewing chart, evaluating patient and formulating plan 35 min
[2016-12-15] MEDS: CARVEDILOL 3.125 MG TABLET (FP) PO SCH ×2 (10:00→23:00)
[2016-12-15] MEDS: MUPIROCIN 2% TOPICAL OINTMENT FOR DECOLONIZATION NS SCH ×2 (11:00→22:58)
--- NOTE | 2016-12-15 11:38 | PN ---
Progress Note (short form) - Note Progress Note: RENAL Pt seen and examined appeared comfortable did not answer any questions Last Vital Signs Temp Pulse Resp BP Pulse Ox 98.5 F 71 14 101/49 97 12/15/16 06:00 12/15/16 06:00 12/15/16 06:00 12/15/16 06:00 12/14/16 19:58 lungs clear cvs s1s2 rr YANDY abd soft ext no edema neuro awake Current Medications Generic Name Dose Route Start Last Admin Trade Name Freq PRN Reason Stop Dose Admin Acetaminophen 1,000 mg 12/15/16 09:30 Ofirmev Injection - IVPB 12/16/16 03:31 Q6H PRN FEVER OR PAIN Acetylcysteine 1,200 mg 12/14/16 15:15 12/14/16 22:30 Mucomyst 20 Oral / Inh Use Only* PO 12/16/16 15:14 Not Given BID [facility] Albuterol Sulfate 1 amp 12/13/16 18:26 Ventolin 0.083% Nebulizer Soln - NEB Q6H PRN SHORT OF BREATH/WHEEZING Atorvastatin Calcium 10 mg 12/13/16 22:00 12/14/16 21:38 Lipitor - PO 10 mg HS [facility] Administration Carvedilol 3.125 mg 12/13/16 22:00 12/14/16 21:38 Coreg - PO 3.125 mg BID [facility] Administration Chlorhexidine Gluconate 1 applic 12/13/16 22:00 12/14/16 21:34 Hibiclens For Decolonization - TP 1 applic HS [facility] Administration Furosemide 20 mg 12/15/16 07:57 Lasix Injection - IVPB 12/15/16 12:00 D[employer] PERSON [facility] Pantoprazole Sodium 80 mg/ 100 mls @ 10 mls/hr 12/14/16 10:00 12/14/16 21:34 Sodium Chloride IVPB 10 mls/hr Q10H [facility] Administration 8 MG/HR Mupirocin 1 applic 12/13/16 22:00 12/14/16 21:34 Bactroban Ointment (For Decolonization) - NS 1 applic BID [facility] Administration CBC, BMP 12/15/16 05:15 12/15/16 05:15 Impression 1. hx CKD 2. CRISS improving 3. choledocholithiasis 4. CAD 5. hx of Renal Cell Cancer s/p nephroectomy 6. aortic stenosis which is associated with avm 7. GI bleed Plan - renal function is improving - pt is high risk for MOHSEN. Pt does understand the risk - would keep hydrated - transfuse as necessary MV
[2016-12-15] MEDS: PANTOPRAZOLE SODIUM 80 MG in SODIUM CHLORIDE 100 ML IVPB SCH ×2 (12:00→17:40)
[2016-12-15] MEDS ORDERED: DESMOPRESSIN ACETATE 4 MCG/ML AMP IVPB ONE (12:11)
[2016-12-15] MEDS ORDERED: PT OWN MED DRAWER 7, Y5N ONE ×2 (12:26→22:28)
--- NOTE | 2016-12-15 12:28 | PN ---
GI Progress Note Subjective: GI Note: Continues to bleed but did not receive platelets until today. Last BM was 4AM. NO pain. No vomiting. I have discussed the options of CTA with IR embolization vs surgery with Blane and his . I explained that the angio contrast could cause renal failure and that embolization could cause the segment of colon involved to become gangrenous and require emergent surgery. I have explained that immediate surgery may call for a subtotal colectomy and temporary colostomy. A bowel prep could precipitate brisk hemorrhage. Given the options we will wait to see whether the platelets and dDAVP bring this hemorrhage to a halt. - Objective Vital Signs: Vital Signs Temperature 98.5 F 12/15/16 06:00 Pulse Rate 74 12/15/16 11:49 Respiratory Rate 14 12/15/16 11:49 Blood Pressure 126/66 12/15/16 11:49 O2 Sat by Pulse Oximetry (%) 97 12/14/16 19:58 Constitutional: Calm, Pallor ...Auscultate: Yes: Hyperactive Bowel Sounds ...Palpate: Yes: Soft, Other (nontender) Labs: CBC, BMP 12/15/16 05:15 12/15/16 05:15 INR, PTT INR 1.16 (0.82-1.09) H 12/12/16 05:15 Fibrinogen 170.0 mg/dL (238-498) L 12/15/16 05:15 Assessment/Plan Lower GI hemorrhage. Await to see effects of platelet transfusion and dDAVP. If bleeding persists will pursue CTA and IR intervention.
[2016-12-15] MEDS: ACETYLCYSTEINE 20% 200MG/ML 30 ML VIAL *FOR ORAL / INH USE ONLY PO SCH ×2 (12:31→22:58)
[2016-12-15] MEDS ORDERED: SODIUM CHLORIDE IVPB ONE (13:00)
[2016-12-15] MEDS ORDERED: DESMOPRESSIN ACETATE IVPB ONE (13:00)
[2016-12-15] MEDS ORDERED: FUROSEMIDE 40 MG/4 ML INJECTABLE VIAL IVPUSH ONE (14:57)
--- NOTE | 2016-12-15 15:07 | PN ---
Progress Note (short form) - Note Progress Note: GI Addendum: After another large bloody BM a CTA was done. Dr Gonzales has reported to the nurse that there is no active bleeding seen. I therefore inserted an NG and lavaged until bile returned excluding a UGI bleed. I then did a rectal exam and got no bright red blood excluding a stercoral ulcer bleed. I have told Blane and his that surgery is the next option and that this would entail a subtotal colectomy with a ileostomy that may be reversed in the future. I have discussed the case with Dr Weems who agrees. I will transfuse more PRBCs, another unit of platelets and start an octreotide drip.
[2016-12-15] MEDS ORDERED: OCTREOTIDE ACETATE 50 MCG/1 ML - 1 ML VIAL IVPUSH ONE (15:10)
[2016-12-15 15:49] LABS: BASOPHIL 0.4 % (0-2.0); EOSINOPHIL 10.6 % (0-4.5); MCH 31.2 pg (25.7-33.7); MCHC 35.3 g/dl (32.0-35.9); MEAN CELL VOLUME 88.3 fl (80-96); MEAN PLT VOLUME 8.9 fl (7.5-11.1); PLATELET COUNT 71 K/MM3 (134-434); RDW 16.3 % (11.9-15.9)
[2016-12-15 16:02] LABS: INR 1.14 (0.82-1.09); PROTHROMBIN TIME (PATIENT) 12.6 SEC (9.98-11.88)
[2016-12-15 16:04] LABS: ANION GAP 7 (8-16); CALCIUM 8.2 mg/dL (8.5-10.1); CO2 27 mmol/L (21-32); CREATININE 1.4 mg/dL (0.7-1.3); GLUCOSE,RANDOM 97 mg/dL (74-106)
[2016-12-15] MEDS: OCTREOTIDE ACETATE 1,200 MCG in DEXTROSE 5%-WATER - 488 ML IVPB SCH (17:41)
[2016-12-15] MEDS ORDERED: FUROSEMIDE 40 MG/4 ML INJECTABLE VIAL ONE (19:41)
[2016-12-15 22:01] LABS: MCH 30.9 pg (25.7-33.7); MCHC 34.9 g/dl (32.0-35.9); MEAN CELL VOLUME 88.6 fl (80-96); PLATELET COUNT 136 K/MM3 (134-434); RDW 15.8 % (11.9-15.9); WHITE BLOOD COUNT 7.1 K/mm3 (4.0-10.0)
[2016-12-15] MEDS: CHLORHEXIDINE GLUCONATE 4% CLEANSER FOR DECOLONIZATION TP SCH (22:58)
[2016-12-15] MEDS: ATORVASTATIN CA 10 MG TABLET (FP) PO SCH (23:00)
[2016-12-16 06:07] LABS: BASOPHIL 0.3 % (0-2.0); EOSINOPHIL 13.3 % (0-4.5); MCH 31.2 pg (25.7-33.7); MCHC 35.3 g/dl (32.0-35.9); MEAN CELL VOLUME 88.4 fl (80-96); MEAN PLT VOLUME 8.3 fl (7.5-11.1); NEUTROPHILS 64.2 % (42.8-82.8); PLATELET COUNT 107 K/MM3 (134-434); RDW 16.1 % (11.9-15.9); WHITE BLOOD COUNT 5.1 K/mm3 (4.0-10.0)
[2016-12-16 06:11] LABS: INR 1.12 (0.82-1.09); PROTHROMBIN TIME (PATIENT) 12.4 SEC (9.98-11.88)
[2016-12-16 06:14] LABS: ACTIVATED PTT 27.6 SECONDS (26.9-34.4)
[2016-12-16 06:26] LABS: ALBUMIN 2.6 g/dl (3.4-5.0); ALK PHOS 60 U/L (45-117); ANION GAP 6 (8-16); BILIRUBIN,TOTAL 0.8 mg/dL (0.2-1.0); CALCIUM 8.2 mg/dL (8.5-10.1); CO2 31 mmol/L (21-32); CREATININE 1.5 mg/dL (0.7-1.3); GLUCOSE,RANDOM 78 mg/dL (74-106); MAGNESIUM 2.1 mg/dL (1.8-2.4); PHOSPHOROUS 3.5 mg/dL (2.5-4.9); SGOT/AST 20 U/L (15-37); SGPT/ALT 14 U/L (12-78); TOT PROT 4.8 g/dl (6.4-8.2)
--- NOTE | 2016-12-16 07:51 | PN ---
Progress Note (short form) - Note Progress Note: Chief Complaint: Events noted, notes reviewed, denies any chest pain or dyspnea , recurrent GI bleed yesterday and last night, sinus rhythm is noted with ICVD History of Present Illness: Seen and examined in the ICU. Events noted, notes reviewed, denies any chest pain or dyspnea, recurrent GI bleed yesterday and last night, sinus rhythm is noted with IVCD As outlined most likely source of bleed is AVM which are associated with aortic valve disease/aortic stenosis CTA no bleeding source identified, for nuclear bleeding scan Echocardiography dated 08/08/2016 revealed Normal LV and RV size with severely decreased LV systolic function, moderate-severe decrease RV function, moderate MR and mild TR - Current Medication List Current Medications Acetylcysteine (Mucomyst 20 Oral / Inh Use Only*) 1,200 mg PO BID [facility] Stop: 12/16/16 15:14 Last Admin: 12/15/16 22:58 Dose: 1,200 mg Albuterol Sulfate (Ventolin 0.083% Nebulizer Soln -) 1 amp NEB Q6H PRN PRN Reason: SHORT OF BREATH/WHEEZING Atorvastatin Calcium (Lipitor -) 10 mg PO HS [facility] Last Admin: 12/15/16 23:00 Dose: 10 mg Carvedilol (Coreg -) 3.125 mg PO BID [facility] Last Admin: 12/15/16 23:00 Dose: 3.125 mg Chlorhexidine Gluconate (Hibiclens For Decolonization -) 1 applic TP HS [facility] Last Admin: 12/15/16 22:58 Dose: 1 applic Pantoprazole Sodium 80 mg/ (Sodium Chloride) 100 mls @ 10 mls/hr IVPB Q10H [facility] PRN Reason: 8 MG/HR Last Admin: 12/15/16 17:40 Dose: Not Given Octreotide Acetate 1,200 mcg/ (Dextrose) 500 mls @ 20.83 mls/hr IVPB ASDIR [facility] PRN Reason: 50 MCG/HR Last Admin: 12/15/16 17:41 Dose: 20.83 mls/hr Mupirocin (Bactroban Ointment (For Decolonization) -) 1 applic NS BID [facility] Last Admin: 12/15/16 22:58 Dose: 1 applic Review of Systems - Review of Systems Constitutional: no symptoms reported Respiratory: denies: Cough or Sputum Production Cardiovascular: as noted above Gastrointestinal: denies Nausea, Vomiting, Diarrhea, Constipation or Abdominal Pain, Persistent Bleed as noted above Genitourinary: No symptoms reported Musculoskeletal: Degenerative Joint Disease Endocrine: No symptoms reported - Objective Vital Signs: Last Vital Signs Temp Pulse Resp BP Pulse Ox 97.8 F 53 L 15 101/52 98 12/16/16 06:00 12/16/16 06:00 12/16/16 06:00 12/16/16 06:00 12/15/16 21:00 Intake & Output 12/13/16 12/14/16 12/15/16 12/16/16 23:59 23:59 23:59 23:59 Intake Total 1050 1640 2425.2 246.4 Output Total 1450 3000 400 Balance -400 -1360 2025.2 246.4 Weight 182 lb 8.684 oz 184 lb 3.2 oz 172 lb 6.424 oz 168 lb 3.2 oz Constitutional: No Distress, Calm, Pale Neck: Supple Negative JVD Cardiovascular: S1 S2 Regular Rate and Rhythm, Grade 2/6 Systolic Ejection Murmur Respiratory: Diminished at the Bases Gastrointestinal: Soft, Benign Normal Bowel Sounds Ext: No Edema Labs: CBC, BMP 12/16/16 05:15 12/16/16 05:15 INR, PTT INR 1.12 (0.82-1.09) 12/16/16 05:15 Fibrinogen 170.0 mg/dL (238-498) L 12/15/16 05:15 Hepatic Panel Total Bilirubin 0.8 mg/dL (0.2-1.0) 12/16/16 05:15 AST 20 U/L (15-37) 12/16/16 05:15 ALT 14 U/L (12-78) D 12/16/16 05:15 Alkaline Phosphatase 60 U/L (45-117) 12/16/16 05:15 Albumin 2.6 g/dl (3.4-5.0) L 12/16/16 05:15 Assessment/Plan ASSESSMENT: 1. Recurrent gastro-intestinal bleed, most likely related to AVM's, persistent 2. Coronary artery disease, post PCI/stent, angina pectoris 3. 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 Aortic stenosis Post AVR-TAVR 5. Hypertension 6. Anemia and thrombocytopenia 7. CKD with history of renal cancer post right nephrectomy 8. History of ERCP, biliary stent implant/removal and stone retrieval for ascending cholangitis PLAN: 1. Continue Protonix 2. Continue Carvedilol hemodynamics permitting 3. Continue Lipitor 4. Prn PRBC and platelet transfusions, maintain Hg equal or > 8.0 and platelet equal or > 80 Huber Alexandre M.D.
--- NOTE | 2016-12-16 09:33 | PN ---
Progress Note (short form) - Note Progress Note: PULMONARY/CCM Pt seen and examined in the ICU. Continues to bleed with decreased H/H this AM. CTA A/P did not reveal source of bleeding. No shortness of breath, chest pain, lightheadedness, dizziness. Last Vital Signs Temp Pulse Resp BP Pulse Ox 97.8 F 54 L 15 104/54 98 12/16/16 06:00 12/16/16 08:00 12/16/16 08:00 12/16/16 08:00 12/15/16 21:00 Intake & Output 12/13/16 12/14/16 12/15/16 12/16/16 23:59 23:59 23:59 23:59 Intake Total 1050 1640 2425.2 246.4 Output Total 1450 3000 400 Balance -400 -1360 2025.2 246.4 Weight 182 lb 8.684 oz 184 lb 3.2 oz 172 lb 6.424 oz 168 lb 3.2 oz Gen: NAD at rest Heart: RRR Lung: decreased breath sounds at the bases Abd: soft, nontender Ext: no edema CBC, BMP 12/16/16 05:15 12/16/16 05:15 INR, PTT INR 1.12 (0.82-1.09) 12/16/16 05:15 Fibrinogen 170.0 mg/dL (238-498) L 12/15/16 05:15 Active Medications Acetylcysteine (Mucomyst 20 Oral / Inh Use Only*) 1,200 mg PO BID [facility] Stop: 12/16/16 15:14 Last Admin: 12/15/16 22:58 Dose: 1,200 mg Albuterol Sulfate (Ventolin 0.083% Nebulizer Soln -) 1 amp NEB Q6H PRN PRN Reason: SHORT OF BREATH/WHEEZING Atorvastatin Calcium (Lipitor -) 10 mg PO HS [facility] Last Admin: 12/15/16 23:00 Dose: 10 mg Carvedilol (Coreg -) 3.125 mg PO BID [facility] Last Admin: 12/15/16 23:00 Dose: 3.125 mg Chlorhexidine Gluconate (Hibiclens For Decolonization -) 1 applic TP HS [facility] Last Admin: 12/15/16 22:58 Dose: 1 applic Pantoprazole Sodium 80 mg/ (Sodium Chloride) 100 mls @ 10 mls/hr IVPB Q10H [facility] PRN Reason: 8 MG/HR Last Admin: 12/15/16 17:40 Dose: Not Given Octreotide Acetate 1,200 mcg/ (Dextrose) 500 mls @ 20.83 mls/hr IVPB ASDIR [facility] PRN Reason: 50 MCG/HR Last Admin: 12/15/16 17:41 Dose: 20.83 mls/hr Mupirocin (Bactroban Ointment (For Decolonization) -) 1 applic NS BID [facility] Last Admin: 12/15/16 22:58 Dose: 1 applic A/P GI Bleed Gastric Ulcers Acute Blood Loss Anemia Thrombocytopenia CAD s/p stent Aortic Stenosis s/p TAVR LV Systolic Dysfunction h/o Cholangitis Acute on CKD h/o R Nephrectomy - monitor H/H, platelets - transfuse as needed - protonix, octreotide gtts - ensure large bore peripheral access - NPO - hold all anticoagulation, antiplatelets - DVT prophylaxis - continue ICU monitoring critical care time spent in reviewing chart, evaluating patient and formulating plan 35 min
--- NOTE | 2016-12-16 10:08 | PN ---
Progress Note (short form) - Note Progress Note: RENAL Pt seen and examined appeared comfortableanswering questions today had CTA but no obvious source of bleeding bled again received ddavp yesterday and platelets Last Vital Signs Temp Pulse Resp BP Pulse Ox 97.8 F 54 L 15 104/54 98 12/16/16 06:00 12/16/16 08:00 12/16/16 08:00 12/16/16 08:00 12/15/16 21:00 lungs clear cvs s1s2 rr YANDY abd soft ext some edema neuro awake CBC, BMP 12/16/16 05:15 12/16/16 05:15 Current Medications Generic Name Dose Route Start Last Admin Trade Name Freq PRN Reason Stop Dose Admin Acetylcysteine 1,200 mg 12/14/16 15:15 12/15/16 22:58 Mucomyst 20 Oral / Inh Use Only* PO 12/16/16 15:14 1,200 mg BID [facility] Administration Albuterol Sulfate 1 amp 12/13/16 18:26 Ventolin 0.083% Nebulizer Soln - NEB Q6H PRN SHORT OF BREATH/WHEEZING Atorvastatin Calcium 10 mg 12/13/16 22:00 12/15/16 23:00 Lipitor - PO 10 mg HS [facility] Administration Carvedilol 3.125 mg 12/13/16 22:00 12/15/16 23:00 Coreg - PO 3.125 mg BID [facility] Administration Chlorhexidine Gluconate 1 applic 12/13/16 22:00 12/15/16 22:58 Hibiclens For Decolonization - TP 1 applic HS [facility] Administration Pantoprazole Sodium 80 mg/ 100 mls @ 10 mls/hr 12/14/16 10:00 12/15/16 17:40 Sodium Chloride IVPB Not Given Q10H [facility] 8 MG/HR Octreotide Acetate 1,200 mcg/ 500 mls @ 20.83 mls/hr 12/15/16 15:15 12/15/16 17 :41 Dextrose IVPB 20.83 mls/hr ASDIR [facility] Administration 50 MCG/HR Mupirocin 1 applic 12/13/16 22:00 12/15/16 22:58 Bactroban Ointment (For Decolonization) - NS 1 applic BID [facility] Administration Impression 1. hx CKD 2. CRISS improving 3. choledocholithiasis 4. CAD 5. hx of Renal Cell Cancer s/p nephroectomy 6. aortic stenosis which is associated with avm 7. GI bleed Plan -has had a slight rise in creatinine which may not be due to contrast yet, perhaps ischemic -will get another dose of mucomyst now -avoid hypotensive episodes -octreotide per GI - received ddavp MV
[2016-12-16] MEDS: MUPIROCIN 2% TOPICAL OINTMENT FOR DECOLONIZATION NS SCH ×2 (10:17→21:58)
[2016-12-16] MEDS: ACETYLCYSTEINE 20% 200MG/ML 30 ML VIAL *FOR ORAL / INH USE ONLY PO SCH (10:17)
[2016-12-16] MEDS: CARVEDILOL 3.125 MG TABLET (FP) PO SCH ×2 (10:17→21:57)
--- NOTE | 2016-12-16 14:20 | PN ---
Physical Exam: SUBJECTIVE: Patient seen and examined Reports fatigue NO pain Had an episode of bloody bowel movement last night No vomiting OBJECTIVE: Vital Signs Period Temp Pulse Resp BP Sys/Hinkle Pulse Ox Last 24 Hr 97.8 F-98.8 F 53-70 13-16 84-125/48-58 98-100 Gen: NAD at rest Heart: RRR Lung: decreased breath sounds at the bases Abd: soft, nontender Ext: no edema Laboratory Results - last 24 hr 12/14/16 12/15/16 12/15/16 18:30 05:15 15:35 WBC 6.0 RBC 2.64 L Hgb 8.2 L Hct 23.3 L MCV 88.3 MCH 31.2 MCHC 35.3 RDW 16.3 H Plt Count 71 L MPV 8.9 Neutrophils % 71.0 Lymphocytes % 12.1 Monocytes % 5.9 Eosinophils % 10.6 H Basophils % 0.4 Haptoglobin 49 PT with INR INR PTT (Actin FS) Sodium Potassium Chloride Carbon Dioxide Anion Gap BUN Creatinine Creat Clearance w eGFR Random Glucose Calcium Phosphorus Magnesium Total Bilirubin AST ALT Alkaline Phosphatase Total Protein Albumin Blood Type A POSITIVE Antibody Screen Negative Crossmatch See Detail 12/15/16 12/15/16 12/15/16 15:35 15:35 21:45 WBC 7.1 RBC 2.78 L Hgb 8.6 L Hct 24.7 L MCV 88.6 MCH 30.9 MCHC 34.9 RDW 15.8 Plt Count 136 D MPV 8.0 D Neutrophils % Lymphocytes % Monocytes % Eosinophils % Basophils % Haptoglobin PT with INR 12.60 H INR 1.14 PTT (Actin FS) Sodium 142 Potassium 3.9 Chloride 108 H Carbon Dioxide 27 Anion Gap 7 L BUN 65 H Creatinine 1.4 H Creat Clearance w eGFR Random Glucose 97 Calcium 8.2 L Phosphorus Magnesium Total Bilirubin AST ALT Alkaline Phosphatase Total Protein Albumin Blood Type Antibody Screen Crossmatch 12/16/16 12/16/16 12/16/16 05:15 05:15 05:15 WBC 5.1 RBC 2.49 L Hgb 7.8 L Hct 22.0 L MCV 88.4 MCH 31.2 MCHC 35.3 RDW 16.1 H Plt Count 107 L D MPV 8.3 Neutrophils % 64.2 Lymphocytes % 15.8 D Monocytes % 6.4 Eosinophils % 13.3 H Basophils % 0.3 Haptoglobin PT with INR 12.40 H INR 1.12 PTT (Actin FS) 27.6 Sodium 142 Potassium 3.8 Chloride 105 Carbon Dioxide 31 Anion Gap 6 L BUN 59 H Creatinine 1.5 H Creat Clearance w eGFR 44.17 Random Glucose 78 Calcium 8.2 L Phosphorus 3.5 Magnesium 2.1 Total Bilirubin 0.8 AST 20 ALT 14 D Alkaline Phosphatase 60 Total Protein 4.8 L Albumin 2.6 L Blood Type Antibody Screen Crossmatch Active Medications Generic Name Dose Route Start Last Admin Trade Name Freq PRN Reason Stop Dose Admin Acetylcysteine 1,200 mg 12/14/16 15:15 12/16/16 10:17 Mucomyst 20 Oral / Inh Use Only* PO 12/16/16 15:14 1,200 mg BID [facility] Administration Albuterol Sulfate 1 amp 12/13/16 18:26 Ventolin 0.083% Nebulizer Soln - NEB Q6H PRN SHORT OF BREATH/WHEEZING Atorvastatin Calcium 10 mg 12/13/16 22:00 12/15/16 23:00 Lipitor - PO 10 mg HS [facility] Administration Carvedilol 3.125 mg 12/13/16 22:00 12/16/16 10:17 Coreg - PO Not Given BID [facility] Chlorhexidine Gluconate 1 applic 12/13/16 22:00 12/15/16 22:58 Hibiclens For Decolonization - TP 1 applic HS [facility] Administration Pantoprazole Sodium 80 mg/ 100 mls @ 10 mls/hr 12/14/16 10:00 12/15/16 17:40 Sodium Chloride IVPB Not Given Q10H [facility] 8 MG/HR Octreotide Acetate 1,200 mcg/ 500 mls @ 20.83 mls/hr 12/15/16 15:15 12/15/16 17 :41 Dextrose IVPB 20.83 mls/hr ASDIR SUB[facility] Administration 50 MCG/HR Mupirocin 1 applic 12/13/16 22:00 12/16/16 10:17 Bactroban Ointment (For Decolonization) - NS 1 applic BID [facility] Administration ASSESSMENT/PLAN: 1. Acute blood loss anemia secondary to GI bleed - likely AVM. Despite 9 units PRBC, DDAVP and PLatelet transfusion he continues dropping HB level . CTA is non contributory. Considering cardiac history and high risk of mortality patient is a poor candidate for surgical intervention. - Nuclear Bleeding Scan - transfused today - octreotide drip - monitor CBC 2. Bradycardia - asympthomatic - Echo 2D - EKG 3. ARF -improved -monitor closely Visit type - Emergency Visit Emergency Visit: Yes ED Registration Date: 12/11/16 Care time: The patient presented to the Emergency Department on the above date and was hospitalized for further evaluation of their emergent condition. - New Patient This patient is new to me today: Yes Date on this admission: 12/16/16 - Critical Care Critical Care patient: No - Discharge Referral Referred to [facility] Med P.C.: No
[2016-12-16 16:13] LABS: BASOPHIL 0.3 % (0-2.0); EOSINOPHIL 14.6 % (0-4.5); MCH 30.6 pg (25.7-33.7); MCHC 34.3 g/dl (32.0-35.9); MEAN CELL VOLUME 89.3 fl (80-96); MEAN PLT VOLUME 8.6 fl (7.5-11.1); PLATELET COUNT 103 K/MM3 (134-434); RDW 15.7 % (11.9-15.9); WHITE BLOOD COUNT 4.9 K/mm3 (4.0-10.0)
--- NOTE | 2016-12-16 16:47 | PN ---
GI Progress Note Subjective: GI NOte: Had not had a bloody BM since overnight. Looks stronger. Denies pain. Renal function fortunately does not appear to have deteriorated following the CTA. - Objective Vital Signs: Vital Signs Temperature 97.6 F 12/16/16 13:06 Pulse Rate 55 L 12/16/16 15:21 Respiratory Rate 15 12/16/16 15:21 Blood Pressure 114/54 12/16/16 15:21 O2 Sat by Pulse Oximetry (%) 100 12/16/16 11:11 Laboratory Tests 12/14/16 12/14/16 12/14/16 03:00 05:00 18:30 Hgb 7.3 L 8.5 L D Plt Count 63 L D BUN Creatinine 12/14/16 12/15/16 12/15/16 21:00 05:15 05:15 Hgb 8.5 L 7.6 L D Plt Count 63 L BUN 71 H D Creatinine 1.3 12/16/16 12/16/16 05:15 15:58 Hgb 8.6 L D Plt Count 103 L BUN 59 H Creatinine 1.5 H Constitutional: No Distress Cardiovascular: Yes: Regular Rate and Rhythm Respiratory: Yes: CTA Bilaterally ...Auscultate: Yes: Normoactive Bowel Sounds ...Palpate: Yes: Soft, Other (nontender) Labs: CBC, BMP 12/16/16 15:58 12/16/16 05:15 INR, PTT INR 1.12 (0.82-1.09) 12/16/16 05:15 Fibrinogen 170.0 mg/dL (238-498) L 12/15/16 05:15 Assessment/Plan GI bleeding appears to at least have slowed down. Will continue octreotide and pantoprazole drips. Platelet count and INR adequate. Surgery remains on standby so is NPO.
[2016-12-16] MEDS: DEXTROSE 5%-0.45% SALINE 1,000 ML IV SCH (20:09)
[2016-12-16] MEDS: PANTOPRAZOLE SODIUM 80 MG in SODIUM CHLORIDE 100 ML IVPB SCH ×3 (20:10→21:59)
[2016-12-16] MEDS: OCTREOTIDE ACETATE 1,200 MCG in DEXTROSE 5%-WATER - 488 ML IVPB SCH (20:10)
--- NOTE | 2016-12-16 20:38 | PN ---
Progress Note (short form) - Note Progress Note: Discussed condition of patient with RN CTA- no active bleeding No further bloody BMs after CTA Octreotide started Given more platelets an FFP CBC, BMP 12/16/16 15:58 12/16/16 05:15 Continue to follow May require further platelets or FFP Serial H/H
[2016-12-16 21:19] LABS: MCH 30.4 pg (25.7-33.7); MCHC 34.1 g/dl (32.0-35.9); MEAN CELL VOLUME 89.1 fl (80-96); MEAN PLT VOLUME 8.1 fl (7.5-11.1); PLATELET COUNT 97 K/MM3 (134-434); RDW 15.6 % (11.9-15.9)
[2016-12-16] MEDS: CHLORHEXIDINE GLUCONATE 4% CLEANSER FOR DECOLONIZATION TP SCH (21:57)
[2016-12-16] MEDS: ATORVASTATIN CA 10 MG TABLET (FP) PO SCH (21:57)
[2016-12-17 06:03] LABS: BASOPHIL 0.5 % (0-2.0); EOSINOPHIL 15.5 % (0-4.5); MCH 30.6 pg (25.7-33.7); MCHC 34.5 g/dl (32.0-35.9); MEAN CELL VOLUME 88.6 fl (80-96); MEAN PLT VOLUME 8.6 fl (7.5-11.1); NEUTROPHILS 64.3 % (42.8-82.8); PLATELET COUNT 99 K/MM3 (134-434); RDW 15.9 % (11.9-15.9); WHITE BLOOD COUNT 5.6 K/mm3 (4.0-10.0)
[2016-12-17 06:20] LABS: INR 1.14 (0.82-1.09); PROTHROMBIN TIME (PATIENT) 12.6 SEC (9.98-11.88)
[2016-12-17 06:23] LABS: ACTIVATED PTT 26.7 SECONDS (26.9-34.4)
[2016-12-17 06:40] LABS: ALBUMIN 2.5 g/dl (3.4-5.0); ANION GAP 8 (8-16); CALCIUM 7.8 mg/dL (8.5-10.1); CO2 29 mmol/L (21-32); CREATININE 1.5 mg/dL (0.7-1.3); GLUCOSE,RANDOM 123 mg/dL (74-106); PHOSPHOROUS 3.2 mg/dL (2.5-4.9); SGOT/AST 20 U/L (15-37); SGPT/ALT 13 U/L (12-78)
[2016-12-17 06:43] LABS: ALK PHOS 64 U/L (45-117); BILIRUBIN,TOTAL 0.9 mg/dL (0.2-1.0); TOT PROT 4.7 g/dl (6.4-8.2)
--- NOTE | 2016-12-17 06:55 | PN ---
Progress Note (short form) - Note Progress Note: Chief Complaint: Events noted, notes reviewed, denies any chest pain or dyspnea , no recurrent GI bleed since yesterday, sinus rhythm with IVCD is noted with intermittent bradycardia History of Present Illness: Seen and examined in the ICU. Events noted, notes reviewed, denies any chest pain or dyspnea, no recurrent GI bleed since yesterday, sinus rhythm with IVCD is noted with intermittent bradycardia Complaining of left hip area discomfort As outlined in prior notes most likely source of bleed is AVM which are associated with aortic valve disease/aortic stenosis Echocardiography dated 08/08/2016 revealed Normal LV and RV size with severely decreased LV systolic function, moderate-severe decrease RV function, moderate MR and mild TR - Current Medication List Current Medications Albuterol Sulfate (Ventolin 0.083% Nebulizer Soln -) 1 amp NEB Q6H PRN PRN Reason: SHORT OF BREATH/WHEEZING Atorvastatin Calcium (Lipitor -) 10 mg PO HS [facility] Last Admin: 12/16/16 21:57 Dose: 10 mg Carvedilol (Coreg -) 3.125 mg PO BID [facility] Last Admin: 12/16/16 21:57 Dose: Not Given Chlorhexidine Gluconate (Hibiclens For Decolonization -) 1 applic TP HS [facility] Last Admin: 12/16/16 21:57 Dose: 1 applic Pantoprazole Sodium 80 mg/ (Sodium Chloride) 100 mls @ 10 mls/hr IVPB Q10H [facility] PRN Reason: 8 MG/HR Last Admin: 12/16/16 21:59 Dose: 10 mls/hr Octreotide Acetate 1,200 mcg/ (Dextrose) 500 mls @ 20.83 mls/hr IVPB ASDIR SUBHA PRN Reason: 50 MCG/HR Last Admin: 12/16/16 20:10 Dose: 20.83 mls/hr Dextrose/Sodium Chloride (D5-1/2ns -) 1,000 mls @ 75 mls/hr IV ASDIR [facility] Last Admin: 12/16/16 20:09 Dose: 75 mls/hr Mupirocin (Bactroban Ointment (For Decolonization) -) 1 applic NS BID [facility] Last Admin: 12/16/16 21:58 Dose: 1 applic Review of Systems - Review of Systems Constitutional: no symptoms reported Respiratory: denies: Cough or Sputum Production Cardiovascular: as noted above Gastrointestinal: denies Nausea, Vomiting, Diarrhea, Constipation or Abdominal Pain, Persistent Bleed as noted above Genitourinary: No symptoms reported Musculoskeletal: Degenerative Joint Disease, as noted above Endocrine: No symptoms reported - Objective Vital Signs: Last Vital Signs Temp Pulse Resp BP Pulse Ox 98.6 F 54 L 13 114/51 97 12/17/16 02:00 12/17/16 02:00 12/17/16 02:00 12/17/16 02:00 12/16/16 21:00 Intake & Output 12/14/16 12/15/16 12/16/16 12/17/16 23:59 23:59 23:59 23:59 Intake Total 1640 2425.2 1314.2 Output Total 3000 400 Balance -1360 2025.2 1314.2 Weight 184 lb 3.2 oz 172 lb 6.424 oz 168 lb 3.2 oz Constitutional: No Distress, Calm, Pale Neck: Supple Negative JVD Cardiovascular: S1 S2 Regular Rate and Rhythm, Grade 2/6 Systolic Ejection Murmur Respiratory: Diminished at the Bases Gastrointestinal: Soft, Benign Normal Bowel Sounds Ext: No Edema Labs: CBC, BMP 12/17/16 05:00 BMP from this AM pending Assessment/Plan ASSESSMENT: 1. Recurrent gastro-intestinal bleed, most likely related to AVM's, resolving 2. Coronary artery disease, post PCI/stent, angina pectoris 3. 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 Aortic stenosis Post AVR-TAVR 5. Hypertension 6. Anemia and thrombocytopenia 7. CKD with history of renal cancer post right nephrectomy 8. History of ERCP, biliary stent implant/removal and stone retrieval for ascending cholangitis PLAN: 1. Continue Protonix 2. Continue Carvedilol hemodynamics permitting 3. Continue Lipitor 4. Prn PRBC and platelet transfusions, maintain Hg equal or > 8.0 and platelet equal or > 80 5. Follow BMP from this AM Huber Alexandre M.D.
[2016-12-17] MEDS: PANTOPRAZOLE SODIUM 80 MG in SODIUM CHLORIDE 100 ML IVPB SCH (07:54)
[2016-12-17] MEDS: MUPIROCIN 2% TOPICAL OINTMENT FOR DECOLONIZATION NS SCH ×2 (09:51→21:27)
[2016-12-17] MEDS: CARVEDILOL 3.125 MG TABLET (FP) PO SCH ×2 (10:01→21:27)
--- NOTE | 2016-12-17 10:30 | PN ---
Progress Note (short form) - Note Progress Note: No complaints On clears States he feels better No further bloody BM per RN + Flatus Vital Signs Period Temp Pulse Resp BP Sys/Hinkle Pulse Ox Last 24 Hr 97.6 F-98.6 F 48-59 13-16 100-120/43-75 97-100 Abd soft, NT CBC, BMP 12/17/16 05:00 12/17/16 05:00 Last three hemoglobin counts have been stable at 8.6 Continue serial H/H Hold anticoagulation
--- NOTE | 2016-12-17 12:21 | PN ---
GI Progress Note Subjective: GI NOte: The Hb has finally stabilized. He just had a black BM which is hopefully old blood. No kareen blood seen. Tolerated clear liquids. - Objective Vital Signs: Vital Signs Temperature 98.0 F 12/17/16 10:00 Pulse Rate 57 L 12/17/16 10:43 Respiratory Rate 16 12/17/16 10:00 Blood Pressure 109/43 12/17/16 10:00 O2 Sat by Pulse Oximetry (%) 99 12/17/16 10:43 Laboratory Tests 12/17/16 12/17/16 12/17/16 05:00 05:00 05:00 WBC 5.6 Hgb 8.6 L Hct 24.8 L Plt Count 99 L PT with INR 12.60 H BUN 47 H D Creatinine 1.5 H Constitutional: Calm ...Auscultate: Yes: Normoactive Bowel Sounds ...Palpate: Yes: Soft, Other (nontender) Labs: CBC, BMP 12/17/16 05:00 12/17/16 05:00 INR, PTT INR 1.14 (0.82-1.09) 12/17/16 05:00 Fibrinogen 170.0 mg/dL (238-498) L 12/15/16 05:15 Assessment/Plan Hopefully bleeding has resolved. Will observe on clear liquids. Will defer colonoscopy as prep may trigger rebleeding.
--- NOTE | 2016-12-17 12:42 | PN ---
Teaching Attending Note Name of Resident: Tony Reveles ATTENDING PHYSICIAN STATEMENT I saw and evaluated the patient. I reviewed the resident's note and discussed the case with the resident. I agree with the resident's findings and plan as documented. SUBJECTIVE: Pt seen and examined in the ICU. Bleeding appears to have stopped. Denies abdominal pain, shortness of breath or chest pain. OBJECTIVE: Last Vital Signs Temp Pulse Resp BP Pulse Ox 98.0 F 57 L 16 109/43 99 12/17/16 10:00 12/17/16 10:43 12/17/16 10:00 12/17/16 10:00 12/17/16 10:43 Intake & Output 12/14/16 12/15/16 12/16/16 12/17/16 23:59 23:59 23:59 23:59 Intake Total 1640 2425.2 1314.2 846.4 Output Total 3000 400 Balance -1360 2025.2 1314.2 846.4 Weight 184 lb 3.2 oz 172 lb 6.424 oz 168 lb 3.2 oz 167 lb 11.2 oz Gen: NAD at rest Heart: RRR Lung: decreased breath sounds at the bases Abd: soft, nontender Ext: no edema CBC, BMP 12/17/16 05:00 12/17/16 05:00 Active Medications Albuterol Sulfate (Ventolin 0.083% Nebulizer Soln -) 1 amp NEB Q6H PRN PRN Reason: SHORT OF BREATH/WHEEZING Atorvastatin Calcium (Lipitor -) 10 mg PO HS SUBHA Last Admin: 12/16/16 21:57 Dose: 10 mg Carvedilol (Coreg -) 3.125 mg PO BID [facility] Last Admin: 12/17/16 10:01 Dose: 3.125 mg Chlorhexidine Gluconate (Hibiclens For Decolonization -) 1 applic TP HS [facility] Last Admin: 12/16/16 21:57 Dose: 1 applic Pantoprazole Sodium 80 mg/ (Sodium Chloride) 100 mls @ 10 mls/hr IVPB Q10H [facility] PRN Reason: 8 MG/HR Last Admin: 12/17/16 07:54 Dose: 10 mls/hr Dextrose/Sodium Chloride (D5-1/2ns -) 1,000 mls @ 75 mls/hr IV ASDIR SUBHA Last Admin: 12/16/16 20:09 Dose: 75 mls/hr Mupirocin (Bactroban Ointment (For Decolonization) -) 1 applic NS BID [facility] Last Admin: 12/17/16 09:51 Dose: 1 applic ASSESSMENT AND PLAN: GI Bleed Gastric Ulcers Acute Blood Loss Anemia Thrombocytopenia CAD s/p stent Aortic Stenosis s/p TAVR LV Systolic Dysfunction h/o Cholangitis Acute on CKD h/o R Nephrectomy - monitor H/H, platelets - transfuse as needed - protonix gtt, off octreotide - ensure large bore peripheral access - PO per GI - hold all anticoagulation, antiplatelets - DVT prophylaxis - continue ICU monitoring critical care time spent in reviewing chart, evaluating patient and formulating plan 35 min
--- NOTE | 2016-12-17 13:04 | PN ---
Teaching Attending Note Name of Resident: Jerome Martin ATTENDING PHYSICIAN STATEMENT I saw and evaluated the patient. I reviewed the resident's note and discussed the case with the resident. I agree with the resident's findings and plan as documented. SUBJECTIVE:resting comfortable. requesting to go home. denies CP, SOB< fever, chills, N/V/C/D or abdominal pain OBJECTIVE: Last Vital Signs Temp Pulse Resp BP Pulse Ox 98.0 F 57 L 16 109/43 99 12/17/16 10:00 12/17/16 10:43 12/17/16 10:00 12/17/16 10:00 12/17/16 10:43 General NAD Lungs CTA B/L no wheezing/rales/rhonchi abdomen soft NT/ND ASSESSMENT AND PLAN: 86yo M with PMH CAD s/p stent, CKD, , with recent admission for bacteremia and GI bleed from ERCP procedure and recently discharged on 11/30/16 and was re- admitted after mechanical fall and found to have hgb 6.3 1. Upper GI bleed- s/p 10 units PRBC this admission. 1 FFP and 3 units platelets. 1 black tarry stool last night. no BM since then. Hgb has been stable since 10th transfusion yesterday. appears bleeding has stopped. CTA did not localize bleed. diet advance to clear liquid. will cont to monitor Hgb closely. agree with conserative management at this time as he is high risk for surgery. cont to monitor Hgb. txn for hgb <8. surgery on standby. GI on board 2. HTN- normotensive. slightly bradycardic. asymptomatic. consider holding coreg if becomes symptomatic. cardiac monitoring. cont coreg 3. thrombocytopenia- low in setting of active bleeding. s/p 3 units platlets. now stable. goal for platelets >90. workup sent by hematology. 4. Mechanical fall-likley due to hypotension vs acute anemia claims to not have hit his head. XR of his hips negative for acute pathology. PT eval when medically optimized 5. Constipation- resolved 6. Pulmonary nodule- incidental 5mm LLL pulmonary nodule. will need CT scan to further evaluate 7. CAD s/p stent-goal to re-start asa after several weeks of inactive bleeding 8. 9. CKD- at baseline 10. DVT ppx- SCD 11. MICU monitoring. The care of this patient involved high complexity decision making to prevent further life threatening deterioration of the patient's condition and/or to evaluate & treat vital organ system(s) failure or risk of failure. 40 minutes
[2016-12-17 13:46] LABS: BASOPHIL 0.6 % (0-2.0); EOSINOPHIL 16.5 % (0-4.5); MCH 30.7 pg (25.7-33.7); MEAN CELL VOLUME 90.3 fl (80-96); MEAN PLT VOLUME 7.8 fl (7.5-11.1); NEUTROPHILS 65.8 % (42.8-82.8); PLATELET COUNT 106 K/MM3 (134-434); WHITE BLOOD COUNT 6.2 K/mm3 (4.0-10.0)
--- NOTE | 2016-12-17 14:28 | PN ---
Physical Exam: SUBJECTIVE: 86 yo M with h/o CAD, aortic stenosis, and ascending cholangitis with recent admission from bacteremia and GI bleed following ERCP discharged on 11/30 and readmitted with syncopal event found to have hemoglobin of 6.3, BUN 45, and + FOBT. Currently with no complaints. No acute events overnight. Denies visualizing blood in stool and denies abdominal or chest pain. Nurses report 1 black stool overnight. Complains of left hip pain. OBJECTIVE: Vital Signs Period Temp Pulse Resp BP Sys/Hinkle Pulse Ox Last 24 Hr 97.8 F-98.6 F 48-59 13-18 100-120/43-75 97-100 GENERAL: The patient is awake, alert, and fully oriented, in no acute distress. HEAD: Normal with no signs of trauma. EYES: PERRL, extraocular movements intact, sclera anicteric, conjunctiva clear. No ptosis. ENT: Ears normal, nares patent, oropharynx clear without exudates, moist mucous membranes. NECK: Trachea midline, full range of motion, supple. LUNGS: Breath sounds equal, clear to auscultation bilaterally, no wheezes, no crackles, no accessory muscle use. HEART: Regular rate and rhythm, S1, S2 without murmur, rub or gallop. ABDOMEN: Soft, nontender, nondistended, normoactive bowel sounds, no guarding, no rebound, no hepatosplenomegaly, no masses. EXTREMITIES: 2+ pulses, warm, well-perfused, no edema. NEUROLOGICAL: Cranial nerves II through XII grossly intact. Normal speech, gait not observed. PSYCH: Normal mood, normal affect. SKIN: Warm, dry, normal turgor, no rashes or lesions noted Laboratory Results - last 24 hr 12/14/16 12/16/16 12/16/16 18:30 15:58 21:00 WBC 4.9 5.0 RBC 2.80 L 2.82 L Hgb 8.6 L D 8.6 L Hct 25.0 L 25.1 L MCV 89.3 89.1 MCH 30.6 30.4 MCHC 34.3 34.1 RDW 15.7 15.6 Plt Count 103 L 97 L MPV 8.6 8.1 Neutrophils % 68.0 Lymphocytes % 12.1 D Monocytes % 5.0 Eosinophils % 14.6 H Basophils % 0.3 PT with INR INR PTT (Actin FS) Sodium Potassium Chloride Carbon Dioxide Anion Gap BUN Creatinine Creat Clearance w eGFR Random Glucose Calcium Phosphorus Magnesium Total Bilirubin AST ALT Alkaline Phosphatase Total Protein Albumin Hep-Induced Plt Ab Rapid 0.379 12/17/16 12/17/16 12/17/16 05:00 05:00 05:00 WBC 5.6 RBC 2.80 L Hgb 8.6 L Hct 24.8 L MCV 88.6 MCH 30.6 MCHC 34.5 RDW 15.9 Plt Count 99 L MPV 8.6 Neutrophils % 64.3 Lymphocytes % 13.7 Monocytes % 6.0 Eosinophils % 15.5 H Basophils % 0.5 PT with INR 12.60 H INR 1.14 PTT (Actin FS) 26.7 L Sodium 142 Potassium 3.8 Chloride 105 Carbon Dioxide 29 Anion Gap 8 BUN 47 H D Creatinine 1.5 H Creat Clearance w eGFR 44.17 Random Glucose 123 H D Calcium 7.8 L Phosphorus 3.2 Magnesium 2.0 Total Bilirubin 0.9 AST 20 ALT 13 Alkaline Phosphatase 64 Total Protein 4.7 L Albumin 2.5 L Hep-Induced Plt Ab Rapid 12/17/16 13:35 WBC 6.2 RBC 3.03 L Hgb 9.3 L Hct 27.4 L MCV 90.3 MCH 30.7 MCHC 34.0 RDW 16.0 H Plt Count 106 L MPV 7.8 Neutrophils % 65.8 Lymphocytes % 12.2 Monocytes % 4.9 Eosinophils % 16.5 H Basophils % 0.6 PT with INR INR PTT (Actin FS) Sodium Potassium Chloride Carbon Dioxide Anion Gap BUN Creatinine Creat Clearance w eGFR Random Glucose Calcium Phosphorus Magnesium Total Bilirubin AST ALT Alkaline Phosphatase Total Protein Albumin Hep-Induced Plt Ab Rapid Active Medications Generic Name Dose Route Start Last Admin Trade Name Freq PRN Reason Stop Dose Admin Albuterol Sulfate 1 amp 12/13/16 18:26 Ventolin 0.083% Nebulizer Soln - NEB Q6H PRN SHORT OF BREATH/WHEEZING Atorvastatin Calcium 10 mg 12/13/16 22:00 12/16/16 21:57 Lipitor - PO 10 mg HS SUBHA Administration Carvedilol 3.125 mg 12/13/16 22:00 12/17/16 10:01 Coreg - PO 3.125 mg BID SUBHA Administration Chlorhexidine Gluconate 1 applic 12/13/16 22:00 12/16/16 21:57 Hibiclens For Decolonization - TP 1 applic HS SUBHA Administration Pantoprazole Sodium 80 mg/ 100 mls @ 10 mls/hr 12/14/16 10:00 12/17/16 07:54 Sodium Chloride IVPB 10 mls/hr Q10H SUBHA Administration 8 MG/HR Dextrose/Sodium Chloride 1,000 mls @ 75 mls/hr 12/16/16 17:00 12/16/16 20:09 D5-1/2ns - IV 75 mls/hr ASDIR SUBHA Administration Mupirocin 1 applic 12/13/16 22:00 12/17/16 09:51 Bactroban Ointment (For Decolonization) - NS 1 applic BID SUBHA Administration ASSESSMENT/PLAN: 86 yo M with h/o CAD, aortic stenosis, and ascending cholangitis with recent admission from bacteremia and GI bleed following ERCP discharged on 11/30 and readmitted with syncopal event found to have hemoglobin of 6.3, BUN 45, and + FOBT. GI: GI bleed most likely 2/2 AVM in setting of aortic stenosis. s/p 10 units PRBC EGD (12/11) 2 small non bleeding ulcers CTA ( 12/15) No active bleeding Cont serial H/H Maintain Hgb >8.0, PLT>80 . PRN PRBC & PLT's Red blood cell nuclear scan Advance to clear liquid diet D/c Ocreotide HTN: Normotenisve ~ cont Coreg D/C coreg if bradycardic Renal: 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~ resolved Trend Cr/BUN Pulm: Incidental LLL 5 mm nodule on x ray. CT to reevaluate FEN: lytes PRN, Clear liquids PPx: DVT-SCD's PPI ppt Dispo: Keep 1 more day to monitor bleeding. Visit type - Emergency Visit Emergency Visit: Yes ED Registration Date: 12/11/16 Care time: The patient presented to the Emergency Department on the above date and was hospitalized for further evaluation of their emergent condition. - New Patient This patient is new to me today: Yes Date on this admission: 12/17/16 - Critical Care Critical Care patient: Yes Total Critical Care Time (in minutes): 35 Critical Care Statement: The care of this patient involved high complexity decision making to prevent further life threatening deterioration of the patient 's condition and/or to evaluate & treat vital organ system(s) failure or risk of failure.
--- NOTE | 2016-12-17 15:22 | PN ---
Progress Note, Physician History of Present Illness: Pt seen and examined at bedside. He is awake and alert. He denies abdominal pain. - Current Medication List Current Medications: Active Medications Albuterol Sulfate (Ventolin 0.083% Nebulizer Soln -) 1 amp NEB Q6H PRN PRN Reason: SHORT OF BREATH/WHEEZING Atorvastatin Calcium (Lipitor -) 10 mg PO HS [facility] Last Admin: 12/16/16 21:57 Dose: 10 mg Carvedilol (Coreg -) 3.125 mg PO BID [facility] Last Admin: 12/17/16 10:01 Dose: 3.125 mg Chlorhexidine Gluconate (Hibiclens For Decolonization -) 1 applic TP HS [facility] Last Admin: 12/16/16 21:57 Dose: 1 applic Pantoprazole Sodium 80 mg/ (Sodium Chloride) 100 mls @ 10 mls/hr IVPB Q10H [facility] PRN Reason: 8 MG/HR Last Admin: 12/17/16 07:54 Dose: 10 mls/hr Dextrose/Sodium Chloride (D5-1/2ns -) 1,000 mls @ 75 mls/hr IV ASDIR [facility] Last Admin: 12/16/16 20:09 Dose: 75 mls/hr Mupirocin (Bactroban Ointment (For Decolonization) -) 1 applic NS BID [facility] Last Admin: 12/17/16 09:51 Dose: 1 applic - Objective Vital Signs: Vital Signs Temperature 98.8 F 12/17/16 14:00 Pulse Rate 54 L 12/17/16 14:00 Respiratory Rate 18 12/17/16 12:00 Blood Pressure 113/52 12/17/16 14:00 O2 Sat by Pulse Oximetry (%) 99 12/17/16 10:43 Constitutional: Yes: Calm Eyes: Yes: Conjunctiva Clear HENT: Yes: Atraumatic Neck: Yes: Supple Cardiovascular: Yes: S1, S2 Respiratory: Yes: CTA Bilaterally Gastrointestinal: Yes: Soft Genitourinary: Yes: WNL Musculoskeletal: Yes: Muscle Weakness Edema: Yes Edema: LLE: Trace, RLE: Trace Neurological: Yes: Oriented Labs: CBC, BMP 12/17/16 13:35 12/17/16 05:00 INR, PTT INR 1.14 (0.82-1.09) 12/17/16 05:00 Fibrinogen 170.0 mg/dL (238-498) L 12/15/16 05:15 Problem List - Problems (1) Anemia Code(s): D64.9 - ANEMIA, UNSPECIFIED Qualifiers: Anemia type: unspecified type Qualified Code(s): D64.9 - Anemia, unspecified (2) GI (gastrointestinal hemorrhage) Code(s): K92.2 - GASTROINTESTINAL HEMORRHAGE, UNSPECIFIED Qualifiers: GI bleed type/associated pathology: melena Qualified Code(s): K92.1 - Melena (3) CRISS (acute kidney injury) Code(s): N17.9 - ACUTE KIDNEY FAILURE, UNSPECIFIED (4) CAD (coronary artery disease) Code(s): I25.10 - ATHSCL HEART DISEASE OF [place] CORONARY ARTERY W/O ANG PCTRS Qualifiers: Coronary Disease-Associated Artery/Lesion type: unspecified vessel or lesion type [place] vs. transplanted heart: [place] heart Associated angina: without angina Qualified Code(s): I25.10 - Atherosclerotic heart disease of [place] coronary artery without angina pectoris (5) CKD (chronic kidney disease) Code(s): N18.9 - CHRONIC KIDNEY DISEASE, UNSPECIFIED Qualifiers: Chronic kidney disease stage: stage 3 (moderate) Qualified Code(s): N18.3 - Chronic kidney disease, stage 3 (moderate) Assessment/Plan Current Medications Generic Name Dose Route Start Last Admin Trade Name Freq PRN Reason Stop Dose Admin Albuterol Sulfate 1 amp 12/13/16 18:26 Ventolin 0.083% Nebulizer Soln - NEB Q6H PRN SHORT OF BREATH/WHEEZING Atorvastatin Calcium 10 mg 12/13/16 22:00 12/16/16 21:57 Lipitor - PO 10 mg HS SUBHA Administration Carvedilol 3.125 mg 12/13/16 22:00 12/17/16 10:01 Coreg - PO 3.125 mg BID SUBHA Administration Chlorhexidine Gluconate 1 applic 12/13/16 22:00 12/16/16 21:57 Hibiclens For Decolonization - TP 1 applic HS SUBHA Administration Pantoprazole Sodium 80 mg/ 100 mls @ 10 mls/hr 12/14/16 10:00 12/17/16 07:54 Sodium Chloride IVPB 10 mls/hr Q10H [facility] Administration 8 MG/HR Dextrose/Sodium Chloride 1,000 mls @ 75 mls/hr 12/16/16 17:00 12/16/16 20:09 D5-1/2ns - IV 75 mls/hr ASDIR SUBHA Administration Mupirocin 1 applic 12/13/16 22:00 12/17/16 09:51 Bactroban Ointment (For Decolonization) - NS 1 applic BID SUBHA Administration Impression 1. hx CKD 2. CRISS improving 3. choledocholithiasis 4. CAD 5. hx of Renal Cell Cancer s/p nephroectomy 6. aortic stenosis 7. GI bleed Plan - check cxr - renal function stable - repeat labs in am - pt has a baseline cooker process cheese of about 1.7 - will follow Dr Medina
[2016-12-17] MEDS: DEXTROSE 5%-0.45% SALINE 1,000 ML IV SCH (17:18)
--- NOTE | 2016-12-17 20:23 | PN ---
Physical Exam: SUBJECTIVE: Patient seen and examined at bedside. No acute events over night. He is asking to go home . He denies fever, chills, N/V/D/C, fatigue, CP, SOB, lightheadedness, dizziness. OBJECTIVE: Vital Signs Period Temp Pulse Resp BP Sys/Hinkle Pulse Ox Last 24 Hr 97.8 F-98.8 F 51-57 13-18 109-120/43-72 97-100 GENERAL: The patient is awake, alert, and fully oriented, in no acute distress. HEAD: Normal with no signs of trauma. EYES: sclera anicteric, conjunctiva clear. No ptosis. ENT: moist mucous membranes. LUNGS: Breath sounds equal, clear to auscultation bilaterally, no wheezes, no crackles, no accessory muscle use. HEART: Regular rate and rhythm, S1, S2 with 2/6 sytolic murmur,no rub or gallop. ABDOMEN: Soft, nontender, nondistended, normoactive bowel sounds, no guarding, no rebound EXTREMITIES: warm, well-perfused, no edema. NEUROLOGICAL: good mentation PSYCH: Normal mood, normal affect. SKIN: Warm, dry, no rashes or lesions noted Laboratory Results - last 24 hr 12/14/16 12/16/16 12/17/16 18:30 21:00 05:00 WBC 5.0 5.6 RBC 2.82 L 2.80 L Hgb 8.6 L 8.6 L Hct 25.1 L 24.8 L MCV 89.1 88.6 MCH 30.4 30.6 MCHC 34.1 34.5 RDW 15.6 15.9 Plt Count 97 L 99 L MPV 8.1 8.6 Neutrophils % 64.3 Lymphocytes % 13.7 Monocytes % 6.0 Eosinophils % 15.5 H Basophils % 0.5 PT with INR INR PTT (Actin FS) Sodium Potassium Chloride Carbon Dioxide Anion Gap BUN Creatinine Creat Clearance w eGFR Random Glucose Calcium Phosphorus Magnesium Total Bilirubin AST ALT Alkaline Phosphatase Total Protein Albumin Hep-Induced Plt Ab Rapid 0.379 12/17/16 12/17/16 12/17/16 05:00 05:00 13:35 WBC 6.2 RBC 3.03 L Hgb 9.3 L Hct 27.4 L MCV 90.3 MCH 30.7 MCHC 34.0 RDW 16.0 H Plt Count 106 L MPV 7.8 Neutrophils % 65.8 Lymphocytes % 12.2 Monocytes % 4.9 Eosinophils % 16.5 H Basophils % 0.6 PT with INR 12.60 H INR 1.14 PTT (Actin FS) 26.7 L Sodium 142 Potassium 3.8 Chloride 105 Carbon Dioxide 29 Anion Gap 8 BUN 47 H D Creatinine 1.5 H Creat Clearance w eGFR 44.17 Random Glucose 123 H D Calcium 7.8 L Phosphorus 3.2 Magnesium 2.0 Total Bilirubin 0.9 AST 20 ALT 13 Alkaline Phosphatase 64 Total Protein 4.7 L Albumin 2.5 L Hep-Induced Plt Ab Rapid Active Medications Generic Name Dose Route Start Last Admin Trade Name Freq PRN Reason Stop Dose Admin Albuterol Sulfate 1 amp 12/13/16 18:26 Ventolin 0.083% Nebulizer Soln - NEB Q6H PRN SHORT OF BREATH/WHEEZING Atorvastatin Calcium 10 mg 12/13/16 22:00 12/16/16 21:57 Lipitor - PO 10 mg HS SUBHA Administration Carvedilol 3.125 mg 12/13/16 22:00 12/17/16 10:01 Coreg - PO 3.125 mg BID SUBHA Administration Chlorhexidine Gluconate 1 applic 12/13/16 22:00 12/16/16 21:57 Hibiclens For Decolonization - TP 1 applic HS SUBHA Administration Dextrose/Sodium Chloride 1,000 mls @ 75 mls/hr 12/16/16 17:00 12/17/16 17:18 D5-1/2ns - IV 75 mls/hr ASDIR SUBHA Administration Mupirocin 1 applic 12/13/16 22:00 12/17/16 09:51 Bactroban Ointment (For Decolonization) - NS 1 applic BID [facility] Administration Pantoprazole Sodium 40 mg 12/17/16 22:00 Protonix - PO BID SUBHA ASSESSMENT/PLAN: 86M w/ extensive PMH CAD, S/P stent , CKD, , choledocholithiasis and cholangitis, most recently 11/24 s/p ERCP and CBD stent removal, who presented with mechanical fall, found to have a Hgb of 6.3 and melena in the ED, admitted to the ICU for suspected upper GI bleed. #GI bleed- likely upper, r/o lower(unlikely) * total of 10 units of PRBCs has been transfused * H/H stable over the last 24 hour 9.3/27.4 * lasix 20mg IV daily * vitk , DDAVP,protonix 40 BID * GI on board- Dr. Parks, EGD showed 2 gastric ulcers in the fundus with no active bleeding or visible vessel. possible colonoscopy today vs bleeding scan * maintain 2 large bore * advance diet to clear liquids * surgery on board- Dr. Weems * cardiology on board- Dr. Hays * hematology on board- Dr. Garcia * f/u CBC, CMP, Mg, Ph, PT/PTT/INR in am * f/u UCx, Bcx, CXR * CTA did not localize bleed * continue conservative management as patient is high risk for surgery * nuclear red blood cell scan differed for now * Transfuse if Hgb < 8 # thrombocytopenia * continuing to trend down. * hematology consulted * S/p 3 unit of platlets transfusion as pt is actively bleeding and source unknown. * HIT assay and autoimmune workup. * goal for platelets >90. #fall on buttocks, most likely mechanical, vs hypotension vs acute anemia * complain of pain in the left hip * denies any dizzines or loss of consciousness before and after the fall, denies to heat his head * pelvic XR negative for fracture * consider CT if pain persist * pain control * PT when stable #HTN * currently hypotensive * will monitor closely * will give IV fluids as needed * start carvedilol, (hold if systolic BP < 130 OR HR < 60) # CKD, stable * at his base line #CAD * hold atorvastatin * Hold blavix for now due to bleeding * Cardiology recommend to use ASA instead of plavix when he is stable and hemoglobin are stable.2 weeks after GI follow up * #Pulmonary nodule * incidental 5mm LLL pulmonary nodule. * will need CT scan to further evaluate * F/U as out patient #Urethral Strictures s/p Dilation * hold finasteride and flomax #Hx of choledocholithiasis * hold ursodiol #constipation, resolved * Hold stool softeners #, * f/u as out patient #Porcine Valve Replacement * F/U as out patient #FEN/PPx -no fluids -electrolytes wnl - advanced to clear lequid -protonix 40 BID -SCDs, no pharmacology anticoagulation for now #Dispo * Admit to ICU due to upper GI bleed * consider transfer to med surg when Hgb stable Visit type - Emergency Visit Emergency Visit: Yes ED Registration Date: 12/11/16 Care time: The patient presented to the Emergency Department on the above date and was hospitalized for further evaluation of their emergent condition. - New Patient This patient is new to me today: No - Critical Care Critical Care patient: Yes Total Critical Care Time (in minutes): 40 Critical Care Statement: The care of this patient involved high complexity decision making to prevent further life threatening deterioration of the patient 's condition and/or to evaluate & treat vital organ system(s) failure or risk of failure.
[2016-12-17] MEDS: ATORVASTATIN CA 10 MG TABLET (FP) PO SCH (21:27)
[2016-12-17] MEDS: PANTOPRAZOLE 40 MG TABLET (FP) PO SCH (21:27)
[2016-12-17] MEDS: CHLORHEXIDINE GLUCONATE 4% CLEANSER FOR DECOLONIZATION TP SCH (21:27)
[2016-12-17] MEDS: ACETAMINOPHEN 325 MG TABLET (FP) PO PRN (23:46)
[2016-12-18 05:59] LABS: BASOPHIL 0.6 % (0-2.0); EOSINOPHIL 15.1 % (0-4.5); MCH 30.6 pg (25.7-33.7); MCHC 33.7 g/dl (32.0-35.9); MEAN PLT VOLUME 9.1 fl (7.5-11.1); PLATELET COUNT 88 K/MM3 (134-434); RDW 15.8 % (11.9-15.9)
[2016-12-18 06:10] LABS: INR 1.17 (0.82-1.09); PROTHROMBIN TIME (PATIENT) 12.9 SEC (9.98-11.88)
--- NOTE | 2016-12-18 06:43 | PN ---
Progress Note (short form) - Note Progress Note: Chief Complaint: Events noted, notes reviewed, complaining of persistent left hip pain not alleviated by Tylenol, denies any chest pain or dyspnea, no recurrent GI bleed, sinus rhythm with IVCD is noted with intermittent bradycardia History of Present Illness: Seen and examined in the ICU. Events noted, notes reviewed, complaining of persistent left hip pain not alleviated by Tylenol, denies any chest pain or dyspnea, no recurrent GI bleed, sinus rhythm with IVCD is noted with intermittent bradycardia As outlined in prior notes most likely source of bleed is AVM which are associated with aortic valve disease/aortic stenosis Echocardiography dated 08/08/2016 revealed Normal LV and RV size with severely decreased LV systolic function, moderate-severe decrease RV function, moderate MR and mild TR - Current Medication List Current Medications Acetaminophen (Tylenol -) 650 mg PO Q6H PRN PRN Reason: FEVER OR PAIN Last Admin: 12/17/16 23:46 Dose: 650 mg Albuterol Sulfate (Ventolin 0.083% Nebulizer Soln -) 1 amp NEB Q6H PRN PRN Reason: SHORT OF BREATH/WHEEZING Atorvastatin Calcium (Lipitor -) 10 mg PO HS [facility] Last Admin: 12/17/16 21:27 Dose: 10 mg Carvedilol (Coreg -) 3.125 mg PO BID [facility] Last Admin: 12/17/16 21:27 Dose: 3.125 mg Chlorhexidine Gluconate (Hibiclens For Decolonization -) 1 applic TP HS [facility] Last Admin: 12/17/16 21:27 Dose: 1 applic Dextrose/Sodium Chloride (D5-1/2ns -) 1,000 mls @ 75 mls/hr IV ASDIR [facility] Last Admin: 12/17/16 17:18 Dose: 75 mls/hr Mupirocin (Bactroban Ointment (For Decolonization) -) 1 applic NS BID [facility] Last Admin: 12/17/16 21:27 Dose: 1 applic Pantoprazole Sodium (Protonix -) 40 mg PO BID [facility] Last Admin: 12/17/16 21:27 Dose: 40 mg Review of Systems - Review of Systems Constitutional: no symptoms reported Respiratory: denies: Cough or Sputum Production Cardiovascular: as noted above Gastrointestinal: denies Nausea, Vomiting, Diarrhea, Constipation or Abdominal Pain, Persistent Bleed as noted above Genitourinary: No symptoms reported Musculoskeletal: Degenerative Joint Disease, as noted above Endocrine: No symptoms reported - Objective Vital Signs: Last Vital Signs Temp Pulse Resp BP Pulse Ox 97.8 F 61 17 129/76 99 12/18/16 02:00 12/18/16 04:00 12/18/16 04:00 12/18/16 04:00 12/17/16 21:00 Intake & Output 12/15/16 12/16/16 12/17/16 12/18/16 23:59 23:59 23:59 23:59 Intake Total 2425.2 1314.2 2473.6 Output Total 400 Balance 2025.2 1314.2 2473.6 Weight 172 lb 6.424 oz 168 lb 3.2 oz 167 lb 11.2 oz Constitutional: No Distress, Calm, Pale Neck: Supple Negative JVD Cardiovascular: S1 S2 Regular Rate and Rhythm, Grade 2/6 Systolic Ejection Murmur Respiratory: Diminished at the Bases Gastrointestinal: Soft, Benign Normal Bowel Sounds Ext: No Edema Labs: CBC, BMP 12/18/16 05:00 BMP from this AM pending Assessment/Plan ASSESSMENT: 1. Recurrent gastro-intestinal bleed, most likely related to AVM's, no further bleed 2. Coronary artery disease, post PCI/stent, angina pectoris 3. 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 Aortic stenosis Post AVR-TAVR 5. Hypertension 6. Anemia and thrombocytopenia 7. CKD with history of renal cancer post right nephrectomy 8. History of ERCP, biliary stent implant/removal and stone retrieval for ascending cholangitis PLAN: 1. Continue Protonix 2. Continue Carvedilol hemodynamics permitting 3. Continue Lipitor 4. Pain management for the above noted presentation 5. Prn PRBC and platelet transfusions, maintain Hg equal or > 8.0 and platelet equal or > 80 6. Follow BMP from this AM Huber Alexandre M.D.
[2016-12-18 07:08] LABS: ALBUMIN 2.5 g/dl (3.4-5.0); ANION GAP 7 (8-16); CALCIUM 7.1 mg/dL (8.5-10.1); CO2 29 mmol/L (21-32); CREATININE 1.4 mg/dL (0.7-1.3); GLUCOSE,RANDOM 111 mg/dL (74-106); MAGNESIUM 1.9 mg/dL (1.8-2.4); PHOSPHOROUS 2.4 mg/dL (2.5-4.9); SGOT/AST 21 U/L (15-37); SGPT/ALT 13 U/L (12-78)
[2016-12-18 07:10] LABS: ALK PHOS 65 U/L (45-117); BILIRUBIN,TOTAL 0.9 mg/dL (0.2-1.0); TOT PROT 4.6 g/dl (6.4-8.2)
[2016-12-18] MEDS: ACETAMINOPHEN 325 MG TABLET (FP) PO PRN ×2 (07:31→21:51)
--- NOTE | 2016-12-18 08:10 | PN ---
Physical Exam: SUBJECTIVE: Patient seen and examined at bedside. No acute events over night. He is asking to go home . He denies fever, chills, N/V/D/C, fatigue, CP, SOB, lightheadedness, dizziness. OBJECTIVE: Vital Signs Period Temp Pulse Resp BP Sys/Hinkle Pulse Ox Last 24 Hr 97.8 F-98.8 F 52-61 14-18 109-129/43-76 99-100 GENERAL: The patient is awake, alert, and fully oriented, in no acute distress. HEAD: Normal with no signs of trauma. EYES: sclera anicteric, conjunctiva clear. No ptosis. ENT: moist mucous membranes. LUNGS: Breath sounds equal, clear to auscultation bilaterally, no wheezes, no crackles, no accessory muscle use. HEART: Regular rate and rhythm, S1, S2 with 2/6 sytolic murmur,no rub or gallop. ABDOMEN: Soft, nontender, nondistended, normoactive bowel sounds, no guarding, no rebound EXTREMITIES: warm, well-perfused, no edema. NEUROLOGICAL: good mentation PSYCH: Normal mood, normal affect. SKIN: Warm, dry, no rashes or lesions noted Laboratory Results - last 24 hr 12/17/16 12/18/16 12/18/16 13:35 05:00 05:00 WBC 6.2 4.0 D RBC 3.03 L 2.79 L Hgb 9.3 L 8.6 L Hct 27.4 L 25.4 L MCV 90.3 91.0 MCH 30.7 30.6 MCHC 34.0 33.7 RDW 16.0 H 15.8 Plt Count 106 L 88 L MPV 7.8 9.1 D Neutrophils % 65.8 61.0 Lymphocytes % 12.2 16.2 D Monocytes % 4.9 7.1 Eosinophils % 16.5 H 15.1 H Basophils % 0.6 0.6 PT with INR 12.90 H INR 1.17 H PTT (Actin FS) Sodium Potassium Chloride Carbon Dioxide Anion Gap BUN Creatinine Creat Clearance w eGFR Random Glucose Calcium Phosphorus Magnesium Total Bilirubin AST ALT Alkaline Phosphatase Total Protein Albumin 12/18/16 12/18/16 05:00 05:00 WBC RBC Hgb Hct MCV MCH MCHC RDW Plt Count MPV Neutrophils % Lymphocytes % Monocytes % Eosinophils % Basophils % PT with INR INR PTT (Actin FS) 29.4 Sodium 139 Potassium 3.5 Chloride 103 Carbon Dioxide 29 Anion Gap 7 L BUN 32 H D Creatinine 1.4 H Creat Clearance w eGFR 47.83 Random Glucose 111 H Calcium 7.1 L Phosphorus 2.4 L D Magnesium 1.9 Total Bilirubin 0.9 AST 21 ALT 13 Alkaline Phosphatase 65 Total Protein 4.6 L Albumin 2.5 L Active Medications Generic Name Dose Route Start Last Admin Trade Name Freq PRN Reason Stop Dose Admin Acetaminophen 650 mg 12/17/16 23:37 12/18/16 07:31 Tylenol - PO 650 mg Q6H PRN Administration FEVER OR PAIN Albuterol Sulfate 1 amp 12/13/16 18:26 Ventolin 0.083% Nebulizer Soln - NEB Q6H PRN SHORT OF BREATH/WHEEZING Atorvastatin Calcium 10 mg 12/13/16 22:00 12/17/16 21:27 Lipitor - PO 10 mg HS SUBHA Administration Carvedilol 3.125 mg 12/13/16 22:00 12/17/16 21:27 Coreg - PO 3.125 mg BID SUB[facility] Administration Chlorhexidine Gluconate 1 applic 12/13/16 22:00 12/17/16 21:27 Hibiclens For Decolonization - TP 1 applic HS [facility] Administration Dextrose/Sodium Chloride 1,000 mls @ 75 mls/hr 12/16/16 17:00 12/17/16 17:18 D5-1/2ns - IV 75 mls/hr ASDIR SUB[facility] Administration Mupirocin 1 applic 12/13/16 22:00 12/17/16 21:27 Bactroban Ointment (For Decolonization) - NS 1 applic BID SUB[facility] Administration Pantoprazole Sodium 40 mg 12/17/16 22:00 12/17/16 21:27 Protonix - PO 40 mg BID SUB[facility] Administration CBC, BMP 12/18/16 16:00 12/18/16 05:00 ASSESSMENT/PLAN: 86M w/ extensive PMH CAD, S/P stent , CKD, , choledocholithiasis and cholangitis, most recently 11/24 s/p ERCP and CBD stent removal, who presented with mechanical fall, found to have a Hgb of 6.3 and melena in the ED, admitted to the ICU for suspected upper GI bleed. #GI bleed- likely upper, r/o lower(unlikely) * total of 10 units of PRBCs has been transfused * H/H stable over the last 24 hour 9.3/27.4 * lasix 20mg IV daily * vitk , DDAVP,protonix 40 BID * GI on board- Dr. Parks, EGD showed 2 gastric ulcers in the fundus with no active bleeding or visible vessel. possible colonoscopy today vs bleeding scan * maintain 2 large bore * advance diet to clear liquids * surgery on board- Dr. Weems * cardiology on board- Dr. Hays * hematology on board- Dr. Garcia * f/u CBC, CMP, Mg, Ph, PT/PTT/INR in am * f/u UCx, Bcx, CXR * CTA did not localize bleed * continue conservative management as patient is high risk for surgery * nuclear red blood cell scan differed for now * Transfuse if Hgb < 8 # thrombocytopenia * continuing to trend down. * hematology consulted * S/p 3 unit of platlets transfusion as pt is actively bleeding and source unknown. * HIT assay and autoimmune workup. * goal for platelets >90. #fall on buttocks, most likely mechanical, vs hypotension vs acute anemia * complain of pain in the left hip * denies any dizzines or loss of consciousness before and after the fall, denies to heat his head * pelvic XR negative for fracture * consider CT if pain persist * pain control * PT when stable #HTN * currently hypotensive * will monitor closely * will give IV fluids as needed * start carvedilol, (hold if systolic BP < 130 OR HR < 60) # CKD, stable * at his base line #CAD * hold atorvastatin * Hold blavix for now due to bleeding * Cardiology recommend to use ASA instead of plavix when he is stable and hemoglobin are stable.2 weeks after GI follow up * #Pulmonary nodule * incidental 5mm LLL pulmonary nodule. * will need CT scan to further evaluate * F/U as out patient #Urethral Strictures s/p Dilation * hold finasteride and flomax #Hx of choledocholithiasis * hold ursodiol #constipation, resolved * Hold stool softeners #, * f/u as out patient #Porcine Valve Replacement * F/U as out patient #FEN/PPx -no fluids -electrolytes wnl - advanced to clear lequid -protonix 40 BID -SCDs, no pharmacology anticoagulation for now #Dispo * Admit to ICU due to upper GI bleed * consider transfer to med surg when Hgb stable Visit type - Emergency Visit Emergency Visit: Yes ED Registration Date: 12/11/16 Care time: The patient presented to the Emergency Department on the above date and was hospitalized for further evaluation of their emergent condition. - New Patient This patient is new to me today: No - Critical Care Critical Care patient: Yes Total Critical Care Time (in minutes): 40 Critical Care Statement: The care of this patient involved high complexity decision making to prevent further life threatening deterioration of the patient 's condition and/or to evaluate & treat vital organ system(s) failure or risk of failure.
[2016-12-18] MEDS ORDERED: NAPH,MB-DB/K PH,MBDB POWDER PACKET PO ONE (10:30)
[2016-12-18] MEDS: PANTOPRAZOLE 40 MG TABLET (FP) PO SCH ×2 (10:31→21:41)
[2016-12-18] MEDS: MUPIROCIN 2% TOPICAL OINTMENT FOR DECOLONIZATION NS SCH (10:31)
[2016-12-18] MEDS: CARVEDILOL 3.125 MG TABLET (FP) PO SCH ×2 (10:31→21:41)
--- NOTE | 2016-12-18 12:16 | PN ---
Teaching Attending Note Name of Resident: Tony Reveles ATTENDING PHYSICIAN STATEMENT I saw and evaluated the patient. I reviewed the resident's note and discussed the case with the resident. I agree with the resident's findings and plan as documented. SUBJECTIVE: Pt seen and examined in the ICU. No further bleeding. H/H stable not requiring transfusions. Denies shortness of breath or chest pain. OBJECTIVE: Last Vital Signs Temp Pulse Resp BP Pulse Ox 97.6 F 53 L 16 101/43 100 12/18/16 10:00 12/18/16 10:00 12/18/16 10:00 12/18/16 10:00 12/18/16 09:00 Intake & Output 12/15/16 12/16/16 12/17/16 12/18/16 23:59 23:59 23:59 23:59 Intake Total 2425.2 1314.2 2473.6 600 Output Total 400 Balance 2025.2 1314.2 2473.6 600 Weight 172 lb 6.424 oz 168 lb 3.2 oz 167 lb 11.2 oz 168 lb 12.8 oz Gen: NAD at rest Heart: RRR Lung: decreased breath sounds at the bases Abd: soft, nontender Ext: no edema CBC, BMP 12/18/16 05:00 12/18/16 05:00 Active Medications Acetaminophen (Tylenol -) 650 mg PO Q6H PRN PRN Reason: FEVER OR PAIN Last Admin: 12/18/16 07:31 Dose: 650 mg Albuterol Sulfate (Ventolin 0.083% Nebulizer Soln -) 1 amp NEB Q6H PRN PRN Reason: SHORT OF BREATH/WHEEZING Atorvastatin Calcium (Lipitor -) 10 mg PO HS [facility] Last Admin: 12/17/16 21:27 Dose: 10 mg Carvedilol (Coreg -) 3.125 mg PO BID [facility] Last Admin: 12/18/16 10:31 Dose: 3.125 mg Chlorhexidine Gluconate (Hibiclens For Decolonization -) 1 applic TP [facility] Last Admin: 12/17/16 21:27 Dose: 1 applic Dextrose/Sodium Chloride (D5-1/2ns -) 1,000 mls @ 75 mls/hr IV ASDIR [facility] Last Admin: 12/17/16 17:18 Dose: 75 mls/hr Mupirocin (Bactroban Ointment (For Decolonization) -) 1 applic NS BID [facility] Last Admin: 12/18/16 10:31 Dose: 1 applic Pantoprazole Sodium (Protonix -) 40 mg PO BID [facility] Last Admin: 12/18/16 10:31 Dose: 40 mg ASSESSMENT AND PLAN: GI Bleed Gastric Ulcers Acute Blood Loss Anemia Thrombocytopenia CAD s/p stent Aortic Stenosis s/p TAVR LV Systolic Dysfunction h/o Cholangitis Acute on CKD h/o R Nephrectomy - monitor H/H, platelets - transfuse as needed - protonix - advance diet per GI - hold all anticoagulation, antiplatelets - DVT prophylaxis - can monitor on floor
--- NOTE | 2016-12-18 12:33 | PN ---
Physical Exam: SUBJECTIVE: 86 yo M with h/o CAD, aortic stenosis, and ascending cholangitis with recent admission from bacteremia and GI bleed following ERCP discharged on 11/30 and readmitted with syncopal event found to have hemoglobin of 6.3, BUN 45 , and + FOBT. Currently with no complaints. No acute events overnight. Nurse report 1 scant black stool this AM. Tolerating clear liquid diet this AM. Denies N/V, C/D, chest pain, abdominal pain. OBJECTIVE: Vital Signs Period Temp Pulse Resp BP Sys/Hinkle Pulse Ox Last 24 Hr 97.6 F-98.8 F 52-61 14-18 92-129/43-76 99-100 GENERAL: The patient is awake, alert, and fully oriented, in no acute distress. HEAD: Normal with no signs of trauma. EYES: PERRL, extraocular movements intact, sclera anicteric, conjunctiva clear. No ptosis. ENT: Ears normal, nares patent, oropharynx clear without exudates, moist mucous membranes. NECK: Trachea midline, full range of motion, supple. LUNGS: Breath sounds equal, clear to auscultation bilaterally, no wheezes, no crackles, no accessory muscle use. HEART: Regular rate and rhythm, S1, S2 without murmur, rub or gallop. ABDOMEN: Soft, nontender, nondistended, normoactive bowel sounds, no guarding, no rebound, no hepatosplenomegaly, no masses. EXTREMITIES: 2+ pulses, warm, well-perfused, no edema. NEUROLOGICAL: Cranial nerves II through XII grossly intact. Normal speech, gait not observed. PSYCH: Normal mood, normal affect. SKIN: Warm, dry, normal turgor, no rashes or lesions noted Laboratory Results - last 24 hr 12/15/16 12/17/16 12/18/16 05:15 13:35 05:00 WBC 6.2 4.0 D RBC 3.03 L 2.79 L Hgb 9.3 L 8.6 L Hct 27.4 L 25.4 L MCV 90.3 91.0 MCH 30.7 30.6 MCHC 34.0 33.7 RDW 16.0 H 15.8 Plt Count 106 L 88 L MPV 7.8 9.1 D Neutrophils % 65.8 61.0 Lymphocytes % 12.2 16.2 D Monocytes % 4.9 7.1 Eosinophils % 16.5 H 15.1 H Basophils % 0.6 0.6 PT with INR INR PTT (Actin FS) Sodium Potassium Chloride Carbon Dioxide Anion Gap BUN Creatinine Creat Clearance w eGFR Random Glucose Calcium Phosphorus Magnesium Total Bilirubin AST ALT Alkaline Phosphatase Total Protein Albumin Blood Type A POSITIVE Antibody Screen Negative Crossmatch See Detail 12/18/16 12/18/16 12/18/16 05:00 05:00 05:00 WBC RBC Hgb Hct MCV MCH MCHC RDW Plt Count MPV Neutrophils % Lymphocytes % Monocytes % Eosinophils % Basophils % PT with INR 12.90 H INR 1.17 H PTT (Actin FS) 29.4 Sodium 139 Potassium 3.5 Chloride 103 Carbon Dioxide 29 Anion Gap 7 L BUN 32 H D Creatinine 1.4 H Creat Clearance w eGFR 47.83 Random Glucose 111 H Calcium 7.1 L Phosphorus 2.4 L D Magnesium 1.9 Total Bilirubin 0.9 AST 21 ALT 13 Alkaline Phosphatase 65 Total Protein 4.6 L Albumin 2.5 L Blood Type Antibody Screen Crossmatch Active Medications Generic Name Dose Route Start Last Admin Trade Name Freq PRN Reason Stop Dose Admin Acetaminophen 650 mg 12/17/16 23:37 12/18/16 07:31 Tylenol - PO 650 mg Q6H PRN Administration FEVER OR PAIN Albuterol Sulfate 1 amp 12/13/16 18:26 Ventolin 0.083% Nebulizer Soln - NEB Q6H PRN SHORT OF BREATH/WHEEZING Atorvastatin Calcium 10 mg 12/13/16 22:00 12/17/16 21:27 Lipitor - PO 10 mg HS [facility] Administration Carvedilol 3.125 mg 12/13/16 22:00 12/18/16 10:31 Coreg - PO 3.125 mg BID SUB[facility] Administration Chlorhexidine Gluconate 1 applic 12/13/16 22:00 12/17/16 21:27 Hibiclens For Decolonization - TP 1 applic HS [facility] Administration Dextrose/Sodium Chloride 1,000 mls @ 75 mls/hr 12/16/16 17:00 12/17/16 17:18 D5-1/2ns - IV 75 mls/hr ASDIR [facility] Administration Mupirocin 1 applic 12/13/16 22:00 12/18/16 10:31 Bactroban Ointment (For Decolonization) - NS 1 applic BID [facility] Administration Pantoprazole Sodium 40 mg 12/17/16 22:00 12/18/16 10:31 Protonix - PO 40 mg BID [facility] Administration ASSESSMENT/PLAN: 86 yo M with h/o CAD, aortic stenosis, and ascending cholangitis with recent admission from bacteremia and GI bleed following ERCP discharged on 11/30 and readmitted with syncopal event found to have hemoglobin of 6.3, BUN 45, and + FOBT. GI: GI bleed most likely 2/2 AVM in setting of aortic stenosis. s/p 10 units PRBC EGD (12/11) 2 small non bleeding ulcers CTA ( 12/15) No active bleeding Cont serial H/H Maintain Hgb >8.0, PLT>80 . PRN PRBC & PLT's HTN: Normotenisve ~ cont Coreg D/C coreg if bradycardic Renal: 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~ resolved Trend Cr/BUN Pulm: Incidental LLL 5 mm nodule on x ray. CT to reevaluate as outpatient FEN: lytes PRN, diet per GI PPx: DVT-SCD's PPI ppt Dispo: Transfer to Med/Surg Visit type - Emergency Visit Emergency Visit: Yes ED Registration Date: 12/11/16 Care time: The patient presented to the Emergency Department on the above date and was hospitalized for further evaluation of their emergent condition. - New Patient This patient is new to me today: No - Critical Care Critical Care patient: Yes Total Critical Care Time (in minutes): 30 Critical Care Statement: The care of this patient involved high complexity decision making to prevent further life threatening deterioration of the patient 's condition and/or to evaluate & treat vital organ system(s) failure or risk of failure.
--- NOTE | 2016-12-18 15:51 | PN ---
Progress Note, Physician History of Present Illness: Pt seen and examined at bedside. He is awake and alert. He is eager to go home. He denies shortness of breath. - Current Medication List Current Medications: Active Medications Acetaminophen (Tylenol -) 650 mg PO Q6H PRN PRN Reason: FEVER OR PAIN Last Admin: 12/18/16 07:31 Dose: 650 mg Albuterol Sulfate (Ventolin 0.083% Nebulizer Soln -) 1 amp NEB Q6H PRN PRN Reason: SHORT OF BREATH/WHEEZING Atorvastatin Calcium (Lipitor -) 10 mg PO HS [facility] Last Admin: 12/17/16 21:27 Dose: 10 mg Carvedilol (Coreg -) 3.125 mg PO BID [facility] Last Admin: 12/18/16 10:31 Dose: 3.125 mg Chlorhexidine Gluconate (Hibiclens For Decolonization -) 1 applic TP HS [facility] Last Admin: 12/17/16 21:27 Dose: 1 applic Dextrose/Sodium Chloride (D5-1/2ns -) 1,000 mls @ 75 mls/hr IV ASDIR [facility] Last Admin: 12/17/16 17:18 Dose: 75 mls/hr Mupirocin (Bactroban Ointment (For Decolonization) -) 1 applic NS BID [facility] Last Admin: 12/18/16 10:31 Dose: 1 applic Pantoprazole Sodium (Protonix -) 40 mg PO BID [facility] Last Admin: 12/18/16 10:31 Dose: 40 mg - Objective Vital Signs: Vital Signs Temperature 97.7 F 12/18/16 14:00 Pulse Rate 53 L 12/18/16 14:00 Respiratory Rate 18 12/18/16 14:00 Blood Pressure 120/54 12/18/16 14:00 O2 Sat by Pulse Oximetry (%) 100 12/18/16 09:00 Constitutional: Yes: Calm Eyes: Yes: Conjunctiva Clear HENT: Yes: Atraumatic Cardiovascular: Yes: S1, S2 Respiratory: Yes: CTA Bilaterally Gastrointestinal: Yes: Normal Bowel Sounds, Soft Genitourinary: Yes: WNL Musculoskeletal: Yes: Muscle Weakness Edema: Yes Edema: LLE: 1+, RLE: 1+ Neurological: Yes: Oriented Psychiatric: Yes: Oriented Labs: CBC, BMP 12/18/16 05:00 12/18/16 05:00 INR, PTT INR 1.17 (0.82-1.09) H 12/18/16 05:00 Fibrinogen 170.0 mg/dL (238-498) L 12/15/16 05:15 Problem List - Problems (1) Anemia Code(s): D64.9 - ANEMIA, UNSPECIFIED Qualifiers: Anemia type: unspecified type Qualified Code(s): D64.9 - Anemia, unspecified (2) GI (gastrointestinal hemorrhage) Code(s): K92.2 - GASTROINTESTINAL HEMORRHAGE, UNSPECIFIED Qualifiers: GI bleed type/associated pathology: melena Qualified Code(s): K92.1 - Melena (3) CRISS (acute kidney injury) Code(s): N17.9 - ACUTE KIDNEY FAILURE, UNSPECIFIED (4) CAD (coronary artery disease) Code(s): I25.10 - ATHSCL HEART DISEASE OF [place] CORONARY ARTERY W/O ANG PCTRS Qualifiers: Coronary Disease-Associated Artery/Lesion type: unspecified vessel or lesion type [place] vs. transplanted heart: [place] heart Associated angina: without angina Qualified Code(s): I25.10 - Atherosclerotic heart disease of [place] coronary artery without angina pectoris (5) CKD (chronic kidney disease) Code(s): N18.9 - CHRONIC KIDNEY DISEASE, UNSPECIFIED Qualifiers: Chronic kidney disease stage: stage 3 (moderate) Qualified Code(s): N18.3 - Chronic kidney disease, stage 3 (moderate) Assessment/Plan Current Medications Generic Name Dose Route Start Last Admin Trade Name Freq PRN Reason Stop Dose Admin Acetaminophen 650 mg 12/17/16 23:37 12/18/16 07:31 Tylenol - PO 650 mg Q6H PRN Administration FEVER OR PAIN Albuterol Sulfate 1 amp 12/13/16 18:26 Ventolin 0.083% Nebulizer Soln - NEB Q6H PRN SHORT OF BREATH/WHEEZING Atorvastatin Calcium 10 mg 12/13/16 22:00 12/17/16 21:27 Lipitor - PO 10 mg HS SUB[facility] Administration Carvedilol 3.125 mg 12/13/16 22:00 12/18/16 10:31 Coreg - PO 3.125 mg BID SUB[facility] Administration Chlorhexidine Gluconate 1 applic 12/13/16 22:00 12/17/16 21:27 Hibiclens For Decolonization - TP 1 applic HS [facility] Administration Dextrose/Sodium Chloride 1,000 mls @ 75 mls/hr 12/16/16 17:00 12/17/16 17:18 D5-1/2ns - IV 75 mls/hr ASDIR SUBHA Administration Mupirocin 1 applic 12/13/16 22:00 12/18/16 10:31 Bactroban Ointment (For Decolonization) - NS 1 applic BID [facility] Administration Pantoprazole Sodium 40 mg 12/17/16 22:00 12/18/16 10:31 Protonix - PO 40 mg BID SUBHA Administration Impression 1. hx CKD 2. CRISS improving 3. choledocholithiasis 4. CAD 5. hx of Renal Cell Cancer s/p nephroectomy 6. aortic stenosis 7. GI bleed 8. anemia Plan - cxr reviewed - renal function is stable - decrease rate of fluids and stop them once he is tolerating diet - repeat labs in am - discussed plan with family - pt has a baseline hothouse worker of about 1.7 - will follow Dr Medina
[2016-12-18 16:31] LABS: MCH 30.6 pg (25.7-33.7); MCHC 33.6 g/dl (32.0-35.9); MEAN CELL VOLUME 91.1 fl (80-96); MEAN PLT VOLUME 8.9 fl (7.5-11.1); PLATELET COUNT 96 K/MM3 (134-434); RDW 15.4 % (11.9-15.9); WHITE BLOOD COUNT 5.1 K/mm3 (4.0-10.0)
[2016-12-18] MEDS: DEXTROSE 5%-0.45% SALINE 1,000 ML IV SCH (16:34)
--- NOTE | 2016-12-18 17:25 | PN ---
Teaching Attending Note Name of Resident: Jerome Martin ATTENDING PHYSICIAN STATEMENT I saw and evaluated the patient. I reviewed the resident's note and discussed the case with the resident. I agree with the resident's findings and plan as documented. SUBJECTIVE: No complaints. OBJECTIVE: Vital Signs Period Temp Pulse Resp BP Sys/Hinkle Pulse Ox Last 24 Hr 97.6 F-98.6 F 52-61 14-18 92-129/43-76 99-100 HEART: S1S2, RRR LUNGS: Clear ABDOMEN: Soft, non-tender, non-distended, normal BS EXTREMITIES: No edema Current Medications Generic Name Dose Route Start Last Admin Trade Name Freq PRN Reason Stop Dose Admin Acetaminophen 650 mg 12/17/16 23:37 12/18/16 07:31 Tylenol - PO 650 mg Q6H PRN Administration FEVER OR PAIN Albuterol Sulfate 1 amp 12/13/16 18:26 Ventolin 0.083% Nebulizer Soln - NEB Q6H PRN SHORT OF BREATH/WHEEZING Atorvastatin Calcium 10 mg 12/13/16 22:00 12/17/16 21:27 Lipitor - PO 10 mg HS SUBHA Administration Carvedilol 3.125 mg 12/13/16 22:00 12/18/16 10:31 Coreg - PO 3.125 mg BID SUBHA Administration Chlorhexidine Gluconate 1 applic 12/13/16 22:00 12/17/16 21:27 Hibiclens For Decolonization - TP 1 applic HS SUBHA Administration Dextrose/Sodium Chloride 1,000 mls @ 40 mls/hr 12/18/16 15:51 12/18/16 16:34 D5-1/2ns - IV 40 mls/hr ASDIR SUBHA Administration Mupirocin 1 applic 12/13/16 22:00 12/18/16 10:31 Bactroban Ointment (For Decolonization) - NS 1 applic BID SUBHA Administration Pantoprazole Sodium 40 mg 12/17/16 22:00 12/18/16 10:31 Protonix - PO 40 mg BID SUBHA Administration ASSESSMENT AND PLAN: 86yo M with PMH CAD s/p stent, CKD, , with recent admission for bacteremia and GI bleed from ERCP procedure and recently discharged on 11/30/16 and was re- admitted after mechanical fall and found to have hgb 6.3 1. Upper GI bleed- s/p 10 units PRBC this admission. 1 FFP and 3 units platelets. 1 black tarry stool last night. no BM since then. Hgb has been stable since 10th transfusion yesterday. appears bleeding has stopped. CTA did not localize bleed. diet advance to clear liquid. will cont to monitor Hgb closely. agree with conserative management at this time as he is high risk for surgery. cont to monitor Hgb. txn for hgb <8. surgery on standby. GI on board 2. HTN- normotensive. slightly bradycardic. asymptomatic. consider holding coreg if becomes symptomatic. cardiac monitoring. cont coreg 3. thrombocytopenia- low in setting of active bleeding. s/p 3 units platlets. now stable. goal for platelets >90. workup sent by hematology. 4. Mechanical fall-likley due to hypotension vs acute anemia claims to not have hit his head. XR of his hips negative for acute pathology. PT eval when medically optimized 5. Constipation- resolved 6. Pulmonary nodule- incidental 5mm LLL pulmonary nodule. will need CT scan to further evaluate 7. CAD s/p stent-goal to re-start asa after several weeks of inactive bleeding 8. 9. CKD- at baseline 10. DVT ppx- SCD 11. MICU monitoring.
[2016-12-18] MEDS: ATORVASTATIN CA 10 MG TABLET (FP) PO SCH (21:41)
[2016-12-18] MEDS ORDERED: CHLORHEXIDINE GLUCONATE 4% CLEANSER FOR DECOLONIZATION TP SCH (22:00)
[2016-12-18] MEDS ORDERED: MUPIROCIN 2% TOPICAL OINTMENT FOR DECOLONIZATION NS SCH (22:00)
[2016-12-19 08:08] LABS: MCH 30.8 pg (25.7-33.7); MCHC 33.9 g/dl (32.0-35.9); MEAN CELL VOLUME 90.8 fl (80-96); PLATELET COUNT 89 K/MM3 (134-434); RDW 15.9 % (11.9-15.9); WHITE BLOOD COUNT 5.3 K/mm3 (4.0-10.0)
[2016-12-19 08:43] LABS: ALBUMIN 2.4 g/dl (3.4-5.0); ANION GAP 8 (8-16); CALCIUM 7.5 mg/dL (8.5-10.1); CO2 26 mmol/L (21-32); GLUCOSE,RANDOM 96 mg/dL (74-106); MAGNESIUM 1.8 mg/dL (1.8-2.4)
[2016-12-19 08:50] LABS: ALK PHOS 70 U/L (45-117); BILIRUBIN,TOTAL 0.5 mg/dL (0.2-1.0); CREATININE 1.3 mg/dL (0.7-1.3); SGOT/AST 21 U/L (15-37); SGPT/ALT 14 U/L (12-78); TOT PROT 4.6 g/dl (6.4-8.2)
[2016-12-19] MEDS: CARVEDILOL 3.125 MG TABLET (FP) PO SCH ×2 (09:18→21:02)
[2016-12-19] MEDS: PANTOPRAZOLE 40 MG TABLET (FP) PO SCH ×2 (09:18→21:02)
--- NOTE | 2016-12-19 11:07 | PN ---
Physical Exam: SUBJECTIVE: Patient seen and examined at bedside. No acute events over night. He is asking to go home. He denies fever, chills, N/V/D/C, fatigue, CP, SOB, lightheadedness, dizziness. Had 2 bowel movement dark stool, non bloody. OBJECTIVE: Vital Signs Period Temp Pulse Resp BP Sys/Hinkle Pulse Ox Last 24 Hr 97.5 F-98.6 F 52-65 16-20 92-123/45-64 100 GENERAL: The patient is awake, alert, and fully oriented, in no acute distress. HEAD: Normal with no signs of trauma. EYES: sclera anicteric, conjunctiva clear. No ptosis. ENT: moist mucous membranes. LUNGS: Breath sounds equal, clear to auscultation bilaterally, no wheezes, no crackles, no accessory muscle use. HEART: Regular rate and rhythm, S1, S2 with 2/6 sytolic murmur,no rub or gallop. ABDOMEN: Soft, nontender, nondistended, normoactive bowel sounds, no guarding, no rebound EXTREMITIES: warm, well-perfused, no edema. NEUROLOGICAL: good mentation PSYCH: Normal mood, normal affect. SKIN: Warm, dry, no rashes or lesions noted Laboratory Results - last 24 hr 12/15/16 12/18/16 12/19/16 05:15 16:00 06:30 WBC 5.1 5.3 RBC 3.11 L 2.94 L Hgb 9.5 L D 9.0 L Hct 28.3 L 26.7 L MCV 91.1 90.8 MCH 30.6 30.8 MCHC 33.6 33.9 RDW 15.4 15.9 Plt Count 96 L 89 L MPV 8.9 9.0 Sodium Potassium Chloride Carbon Dioxide Anion Gap BUN Creatinine Creat Clearance w eGFR Random Glucose Calcium Phosphorus Magnesium Total Bilirubin AST ALT Alkaline Phosphatase Total Protein Albumin Blood Type A POSITIVE Antibody Screen Negative Crossmatch See Detail 12/19/16 06:30 WBC RBC Hgb Hct MCV MCH MCHC RDW Plt Count MPV Sodium 138 Potassium 3.5 Chloride 104 Carbon Dioxide 26 Anion Gap 8 BUN 22 H D Creatinine 1.3 Creat Clearance w eGFR 52.10 Random Glucose 96 Calcium 7.5 L Phosphorus 2.0 L Magnesium 1.8 Total Bilirubin 0.5 D AST 21 ALT 14 Alkaline Phosphatase 70 Total Protein 4.6 L Albumin 2.4 L Blood Type Antibody Screen Crossmatch Active Medications Generic Name Dose Route Start Last Admin Trade Name Freq PRN Reason Stop Dose Admin Acetaminophen 650 mg 12/18/16 20:20 12/18/16 21:51 Tylenol - PO 650 mg Q6H PRN Administration FEVER OR PAIN Atorvastatin Calcium 10 mg 12/18/16 22:00 12/18/16 21:41 Lipitor - PO 10 mg HS SUBHA Administration Carvedilol 3.125 mg 12/18/16 22:00 12/19/16 09:18 Coreg - PO 3.125 mg BID SUBHA Administration Dextrose/Sodium Chloride 1,000 mls @ 40 mls/hr 12/18/16 15:51 12/18/16 16:34 D5-1/2ns - IV 40 mls/hr ASDIR SUBHA Administration Pantoprazole Sodium 40 mg 12/18/16 22:00 12/19/16 09:18 Protonix - PO 40 mg BID SUBHA Administration CBC, BMP 12/19/16 06:30 12/19/16 06:30 ASSESSMENT/PLAN: 86M w/ extensive PMH CAD, S/P stent , CKD, , choledocholithiasis and cholangitis, most recently 11/24 s/p ERCP and CBD stent removal, who presented with mechanical fall, found to have a Hgb of 6.3 and melena in the ED, admitted to the ICU for suspected upper GI bleed. #GI bleed- likely upper, r/o lower(unlikely) * total of 10 units of PRBCs has been transfused * H/H stable over the last 24 hour 9.0/26.7 * lasix 20mg IV daily * vitk , DDAVP,protonix 40 BID * GI on board- Dr. Parks, EGD showed 2 gastric ulcers in the fundus with no active bleeding or visible vessel. bleeding scan is deffered for now due to stable H/H * maintain 2 large bore * advance diet to soft food * surgery on board- Dr. Weems * cardiology on board- Dr. Hays * hematology on board- Dr. Garcia * f/u CBC, CMP, Mg, Ph, PT/PTT/INR in am * f/u UCx, Bcx, CXR * CTA did not localize bleed * continue conservative management as patient is high risk for surgery * nuclear red blood cell scan differed for now * Transfuse if Hgb < 8 # thrombocytopenia * continuing to trend down. * hematology consulted * S/p 3 unit of platlets transfusion as pt is actively bleeding and source unknown. * HIT assay and autoimmune workup . * goal for platelets >90. #fall on buttocks, most likely mechanical, vs hypotension vs acute anemia * complain of pain in the left hip * denies any dizzines or loss of consciousness before and after the fall, denies to heat his head * pelvic XR negative for fracture * consider CT if pain persist * pain control * PT eval: walk 100 feet, will benefit from MONIQUE #HTN * currently hypotensive * will monitor closely * will give IV fluids as needed * start carvedilol, (hold if systolic BP < 130 OR HR < 60) # CKD, stable * at his base line #CAD * hold atorvastatin * Hold blavix for now due to bleeding * Cardiology recommend to use ASA instead of plavix when he is stable and hemoglobin are stable.2 weeks after GI follow up * #Pulmonary nodule * incidental 5mm LLL pulmonary nodule. * will need CT scan to further evaluate * F/U as out patient #Urethral Strictures s/p Dilation * hold finasteride and flomax #Hx of choledocholithiasis * hold ursodiol #constipation, resolved * Hold stool softeners #, * f/u as out patient #Porcine Valve Replacement * F/U as out patient #FEN/PPx * on no fluids, * electrolytes wnl * advanced to soft diet * protonix 40 BID * SCDs, no pharmacology anticoagulation for now #Dispo * Admitted to ICU due to upper GI bleed * Transferred to med surg as Hgb is stable * Possible discharge tomorrow to [facility] or home with visiting nurse will discuss with the family Visit type - Emergency Visit Emergency Visit: Yes ED Registration Date: 12/11/16 Care time: The patient presented to the Emergency Department on the above date and was hospitalized for further evaluation of their emergent condition. - New Patient This patient is new to me today: No - Critical Care Critical Care patient: No - Discharge Referral Referred to [facility] Med P.C.: No
[2016-12-19] MEDS: DEXTROSE 5%-0.45% SALINE 1,000 ML IV SCH (13:02)
--- NOTE | 2016-12-19 14:05 | PN ---
Progress Note, Physician History of Present Illness: Pt seen and examined at bedside. He is awake and alert. - Current Medication List Current Medications: Active Medications Acetaminophen (Tylenol -) 650 mg PO Q6H PRN PRN Reason: FEVER OR PAIN Last Admin: 12/18/16 21:51 Dose: 650 mg Atorvastatin Calcium (Lipitor -) 10 mg PO HS [facility] Last Admin: 12/18/16 21:41 Dose: 10 mg Carvedilol (Coreg -) 3.125 mg PO BID [facility] Last Admin: 12/19/16 09:18 Dose: 3.125 mg Dextrose/Sodium Chloride (D5-1/2ns -) 1,000 mls @ 40 mls/hr IV ASDIR [facility] Last Admin: 12/19/16 13:02 Dose: 40 mls/hr Pantoprazole Sodium (Protonix -) 40 mg PO BID [facility] Last Admin: 12/19/16 09:18 Dose: 40 mg - Objective Vital Signs: Vital Signs Temperature 98.1 F 12/19/16 08:00 Pulse Rate 82 12/19/16 08:00 Respiratory Rate 20 12/19/16 08:00 Blood Pressure 123/66 12/19/16 08:00 O2 Sat by Pulse Oximetry (%) 96 12/19/16 08:00 Constitutional: Yes: Calm Eyes: Yes: Conjunctiva Clear HENT: Yes: Atraumatic Neck: Yes: Supple Cardiovascular: Yes: S1, S2 Respiratory: Yes: CTA Bilaterally Gastrointestinal: Yes: Soft Genitourinary: Yes: WNL Musculoskeletal: Yes: Muscle Weakness Edema: Yes Edema: LLE: Trace, RLE: Trace Neurological: Yes: Oriented Psychiatric: Yes: Oriented Labs: CBC, BMP 12/19/16 06:30 12/19/16 06:30 INR, PTT INR 1.17 (0.82-1.09) H 12/18/16 05:00 Fibrinogen 170.0 mg/dL (238-498) L 12/15/16 05:15 Problem List - Problems (1) Anemia Code(s): D64.9 - ANEMIA, UNSPECIFIED Qualifiers: Anemia type: unspecified type Qualified Code(s): D64.9 - Anemia, unspecified (2) GI (gastrointestinal hemorrhage) Code(s): K92.2 - GASTROINTESTINAL HEMORRHAGE, UNSPECIFIED Qualifiers: GI bleed type/associated pathology: melena Qualified Code(s): K92.1 - Melena (3) CRISS (acute kidney injury) Code(s): N17.9 - ACUTE KIDNEY FAILURE, UNSPECIFIED (4) CAD (coronary artery disease) Code(s): I25.10 - ATHSCL HEART DISEASE OF [place] CORONARY ARTERY W/O ANG PCTRS Qualifiers: Coronary Disease-Associated Artery/Lesion type: unspecified vessel or lesion type [place] vs. transplanted heart: [place] heart Associated angina: without angina Qualified Code(s): I25.10 - Atherosclerotic heart disease of [place] coronary artery without angina pectoris (5) CKD (chronic kidney disease) Code(s): N18.9 - CHRONIC KIDNEY DISEASE, UNSPECIFIED Qualifiers: Chronic kidney disease stage: stage 3 (moderate) Qualified Code(s): N18.3 - Chronic kidney disease, stage 3 (moderate) Assessment/Plan Current Medications Generic Name Dose Route Start Last Admin Trade Name Freq PRN Reason Stop Dose Admin Acetaminophen 650 mg 12/18/16 20:20 12/18/16 21:51 Tylenol - PO 650 mg Q6H PRN Administration FEVER OR PAIN Atorvastatin Calcium 10 mg 12/18/16 22:00 12/18/16 21:41 Lipitor - PO 10 mg HS SUBHA Administration Carvedilol 3.125 mg 12/18/16 22:00 12/19/16 09:18 Coreg - PO 3.125 mg BID SUBHA Administration Dextrose/Sodium Chloride 1,000 mls @ 40 mls/hr 12/18/16 15:51 12/19/16 13:02 D5-1/2ns - IV 40 mls/hr ASDIR SUBHA Administration Pantoprazole Sodium 40 mg 12/18/16 22:00 12/19/16 09:18 Protonix - PO 40 mg BID SUBHA Administration Impression 1. hx CKD 2. CRISS improving 3. choledocholithiasis 4. CAD 5. hx of Renal Cell Cancer s/p nephroectomy 6. aortic stenosis 7. GI bleed 8. anemia Plan - renal function is stable - pt tolerating diet - will stop fluids - pt has a baseline purchaser of about 1.7 - will follow Dr Medina
--- NOTE | 2016-12-19 16:12 | PN ---
Progress Note, Physician History of Present Illness: No further bleeding, Hgb stable. - Current Medication List Current Medications: Active Medications Acetaminophen (Tylenol -) 650 mg PO Q6H PRN PRN Reason: FEVER OR PAIN Last Admin: 12/18/16 21:51 Dose: 650 mg Atorvastatin Calcium (Lipitor -) 10 mg PO HS [facility] Last Admin: 12/18/16 21:41 Dose: 10 mg Carvedilol (Coreg -) 3.125 mg PO BID [facility] Last Admin: 12/19/16 09:18 Dose: 3.125 mg Pantoprazole Sodium (Protonix -) 40 mg PO BID [facility] Last Admin: 12/19/16 09:18 Dose: 40 mg - Objective Vital Signs: Vital Signs Temperature 97.3 F L 12/19/16 14:00 Pulse Rate 58 L 12/19/16 14:00 Respiratory Rate 18 12/19/16 14:00 Blood Pressure 117/57 12/19/16 14:00 O2 Sat by Pulse Oximetry (%) 96 12/19/16 10:40 Constitutional: Yes: No Distress, Calm Neck: Yes: Supple Cardiovascular: Yes: Regular Rate and Rhythm Respiratory: Yes: Regular, Diminished Gastrointestinal: Yes: Normal Bowel Sounds, Soft Edema: No Labs: CBC, BMP 12/19/16 06:30 12/19/16 06:30 INR, PTT INR 1.17 (0.82-1.09) H 12/18/16 05:00 Fibrinogen 170.0 mg/dL (238-498) L 12/15/16 05:15 Problem List - Problems (1) Anemia Code(s): D64.9 - ANEMIA, UNSPECIFIED Qualifiers: Anemia type: unspecified type Qualified Code(s): D64.9 - Anemia, unspecified (2) GI (gastrointestinal hemorrhage) Code(s): K92.2 - GASTROINTESTINAL HEMORRHAGE, UNSPECIFIED Qualifiers: GI bleed type/associated pathology: melena Qualified Code(s): K92.1 - Melena (3) CAD (coronary artery disease) Code(s): I25.10 - ATHSCL HEART DISEASE OF [place] CORONARY ARTERY W/O ANG PCTRS Qualifiers: Coronary Disease-Associated Artery/Lesion type: unspecified vessel or lesion type [place] vs. transplanted heart: [place] heart Associated angina: without angina Qualified Code(s): I25.10 - Atherosclerotic heart disease of [place] coronary artery without angina pectoris (4) CKD (chronic kidney disease) Code(s): N18.9 - CHRONIC KIDNEY DISEASE, UNSPECIFIED Qualifiers: Chronic kidney disease stage: stage 3 (moderate) Qualified Code(s): N18.3 - Chronic kidney disease, stage 3 (moderate) (5) History of percutaneous coronary intervention Code(s): Z98.890 - OTHER SPECIFIED POSTPROCEDURAL STATES (6) Hypercholesterolemia Code(s): E78.00 - PURE HYPERCHOLESTEROLEMIA, UNSPECIFIED (7) Left bundle branch block Code(s): I44.7 - LEFT BUNDLE-BRANCH BLOCK, UNSPECIFIED (8) Renal cancer Code(s): C64.9 - MALIGNANT NEOPLASM OF UNSP KIDNEY, EXCEPT RENAL PELVIS Qualifiers: Laterality: right Qualified Code(s): C64.1 - Malignant neoplasm of right kidney, except renal pelvis (9) S/P ERCP Code(s): Z98.890 - OTHER SPECIFIED POSTPROCEDURAL STATES (10) S/P TAVR (transcatheter aortic valve replacement) Code(s): Z95.2 - PRESENCE OF PROSTHETIC HEART VALVE (11) S/P laparoscopic cholecystectomy Code(s): Z90.49 - ACQUIRED ABSENCE OF OTHER SPECIFIED PARTS OF DIGESTIVE TRACT (12) Hypertension Code(s): I10 - ESSENTIAL (PRIMARY) HYPERTENSION Qualifiers: Hypertension type: essential hypertension Qualified Code(s): I10 - Essential (primary) hypertension (13) Gastric ulcer due to nonsteroidal anti-inflammatory drug (NSAID) Code(s): K25.9 - GASTRIC ULCER, UNSP ACUTE OR CHRONIC, W/O HEMOR OR PERF T39.395A - ADVERSE EFFECT OF NONSTEROIDAL ANTI-INFLAMMATORY DRUGS, INIT (14) Thrombocytopenia Code(s): D69.6 - THROMBOCYTOPENIA, UNSPECIFIED Assessment/Plan 08/08/2016 Echo: Normal LV and RV size with severely decreased LV systolic fxn, mod-severe decrease RV fxn, mod MR, mild TR 1. Recurrent gastrointestinal bleed, most likely related to AVM's, no further bleed 2. Coronary artery disease, post PCI/stent, angina pectoris 3. 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 Aortic stenosis Post TAVR 5. Hypertension 6. Anemia and thrombocytopenia 7. CKD with history of renal cancer post right nephrectomy 8. History of ERCP, biliary stent implant/removal and stone retrieval for ascending cholangitis PLAN: 1. Continue Protonix 40 bid 2. Continue Carvedilol 3.125 bid hemodynamics permitting 3. Continue Lipitor 10 qd 4. Prn PRBC and platelet transfusions, maintain Hg equal or > 8.0 and platelet equal or > 80
--- NOTE | 2016-12-19 17:42 | PN ---
Teaching Attending Note Name of Resident: Jerome Martin ATTENDING PHYSICIAN STATEMENT I saw and evaluated the patient. I reviewed the resident's note and discussed the case with the resident. I agree with the resident's findings and plan as documented. SUBJECTIVE: OBJECTIVE: Vital Signs Period Temp Pulse Resp BP Sys/Hinkle Pulse Ox Last 24 Hr 97.3 F-98.6 F 52-82 16-20 100-128/45-66 96-100 Current Medications Generic Name Dose Route Start Last Admin Trade Name Freq PRN Reason Stop Dose Admin Acetaminophen 650 mg 12/18/16 20:20 12/18/16 21:51 Tylenol - PO 650 mg Q6H PRN Administration FEVER OR PAIN Atorvastatin Calcium 10 mg 12/18/16 22:00 12/18/16 21:41 Lipitor - PO 10 mg HS SUBHA Administration Carvedilol 3.125 mg 12/18/16 22:00 12/19/16 09:18 Coreg - PO 3.125 mg BID SUBHA Administration Pantoprazole Sodium 40 mg 12/18/16 22:00 12/19/16 09:18 Protonix - PO 40 mg BID SUBHA Administration ASSESSMENT AND PLAN:
[2016-12-19] MEDS: ATORVASTATIN CA 10 MG TABLET (FP) PO SCH (21:02)
[2016-12-20] MEDS: ACETAMINOPHEN 325 MG TABLET (FP) PO PRN (05:21)
[2016-12-20 09:00] LABS: MCH 30.8 pg (25.7-33.7); MCHC 33.7 g/dl (32.0-35.9); MEAN CELL VOLUME 91.4 fl (80-96); PLATELET COUNT 109 K/MM3 (134-434); RDW 16.6 % (11.9-15.9)
[2016-12-20] MEDS: CARVEDILOL 3.125 MG TABLET (FP) PO SCH (09:04)
[2016-12-20] MEDS: PANTOPRAZOLE 40 MG TABLET (FP) PO SCH (09:04)
[2016-12-20 09:49] LABS: ANION GAP 7 (8-16); CO2 27 mmol/L (21-32); CREATININE 1.4 mg/dL (0.7-1.3); GLUCOSE,RANDOM 99 mg/dL (74-106)
--- NOTE | 2016-12-20 10:41 | PN ---
Progress Note (short form) - Note Progress Note: Ambulating in the hallway. No occult bleeding overnight. No CP or SOB. Intake & Output 12/17/16 12/18/16 12/19/16 12/20/16 23:59 23:59 23:59 23:59 Intake Total 2473.6 2500 1630 Output Total 200 Balance 2473.6 2300 1630 Weight 167 lb 11.2 oz 168 lb 12.8 oz 179 lb 14.4 oz 181 lb Last Vital Signs Temp Pulse Resp BP Pulse Ox 98.0 F 60 16 122/60 97 12/20/16 08:00 12/20/16 08:00 12/20/16 08:00 12/20/16 08:00 12/20/16 08:50 Active Medications Acetaminophen (Tylenol -) 650 mg PO Q6H PRN PRN Reason: FEVER OR PAIN Last Admin: 12/20/16 05:21 Dose: 650 mg Atorvastatin Calcium (Lipitor -) 10 mg PO HS [facility] Last Admin: 12/19/16 21:02 Dose: 10 mg Carvedilol (Coreg -) 3.125 mg PO BID [facility] Last Admin: 12/20/16 09:04 Dose: 3.125 mg Pantoprazole Sodium (Protonix -) 40 mg PO BID [facility] Last Admin: 12/20/16 09:04 Dose: 40 mg Gen: NAD at rest Heart: RRR Lung: decreased breath sounds at the bases Abd: soft, nontender Ext: no edema Laboratory Results - last 24 hr 12/20/16 12/20/16 08:45 08:45 WBC 7.0 D RBC 3.34 L Hgb 10.3 L D Hct 30.5 L MCV 91.4 MCH 30.8 MCHC 33.7 RDW 16.6 H Plt Count 109 L D MPV 9.0 Sodium 138 Potassium 3.5 Chloride 104 Carbon Dioxide 27 Anion Gap 7 L BUN 18 Creatinine 1.4 H Random Glucose 99 Calcium 8.0 L ASSESSMENT AND PLAN: GI Bleed Gastric Ulcers Acute Blood Loss Anemia Thrombocytopenia CAD s/p stent Aortic Stenosis s/p TAVR LV Systolic Dysfunction h/o Cholangitis Acute on CKD h/o R Nephrectomy - monitor H/H, platelets - transfuse as needed - protonix - PO per GI - hold all anticoagulation, antiplatelets - Mechanical VTE prophylaxis Dr Ledesma
--- NOTE | 2016-12-20 11:31 | PN ---
Progress Note, Physician History of Present Illness: No further bleeding, Hgb stable. - Current Medication List Current Medications: Active Medications Acetaminophen (Tylenol -) 650 mg PO Q6H PRN PRN Reason: FEVER OR PAIN Last Admin: 12/20/16 05:21 Dose: 650 mg Atorvastatin Calcium (Lipitor -) 10 mg PO HS [facility] Last Admin: 12/19/16 21:02 Dose: 10 mg Carvedilol (Coreg -) 3.125 mg PO BID [facility] Last Admin: 12/20/16 09:04 Dose: 3.125 mg Pantoprazole Sodium (Protonix -) 40 mg PO BID [facility] Last Admin: 12/20/16 09:04 Dose: 40 mg - Objective Vital Signs: Vital Signs Temperature 98.0 F 12/20/16 08:00 Pulse Rate 60 12/20/16 08:00 Respiratory Rate 16 12/20/16 08:00 Blood Pressure 122/60 12/20/16 08:00 O2 Sat by Pulse Oximetry (%) 97 12/20/16 08:50 Constitutional: Yes: No Distress, Calm Neck: Yes: Supple Cardiovascular: Yes: Regular Rate and Rhythm Respiratory: Yes: Regular, Diminished Gastrointestinal: Yes: Normal Bowel Sounds, Soft Edema: No Labs: CBC, BMP 12/20/16 08:45 12/20/16 08:45 INR, PTT INR 1.17 (0.82-1.09) H 12/18/16 05:00 Fibrinogen 170.0 mg/dL (238-498) L 12/15/16 05:15 Problem List - Problems (1) Anemia Code(s): D64.9 - ANEMIA, UNSPECIFIED Qualifiers: Anemia type: unspecified type Qualified Code(s): D64.9 - Anemia, unspecified (2) GI (gastrointestinal hemorrhage) Code(s): K92.2 - GASTROINTESTINAL HEMORRHAGE, UNSPECIFIED Qualifiers: GI bleed type/associated pathology: melena Qualified Code(s): K92.1 - Melena (3) CAD (coronary artery disease) Code(s): I25.10 - ATHSCL HEART DISEASE OF [place] CORONARY ARTERY W/O ANG PCTRS Qualifiers: Coronary Disease-Associated Artery/Lesion type: unspecified vessel or lesion type [place] vs. transplanted heart: [place] heart Associated angina: without angina Qualified Code(s): I25.10 - Atherosclerotic heart disease of [place] coronary artery without angina pectoris (4) CKD (chronic kidney disease) Code(s): N18.9 - CHRONIC KIDNEY DISEASE, UNSPECIFIED Qualifiers: Chronic kidney disease stage: stage 3 (moderate) Qualified Code(s): N18.3 - Chronic kidney disease, stage 3 (moderate) (5) History of percutaneous coronary intervention Code(s): Z98.890 - OTHER SPECIFIED POSTPROCEDURAL STATES (6) Hypercholesterolemia Code(s): E78.00 - PURE HYPERCHOLESTEROLEMIA, UNSPECIFIED (7) Left bundle branch block Code(s): I44.7 - LEFT BUNDLE-BRANCH BLOCK, UNSPECIFIED (8) Renal cancer Code(s): C64.9 - MALIGNANT NEOPLASM OF UNSP KIDNEY, EXCEPT RENAL PELVIS Qualifiers: Laterality: right Qualified Code(s): C64.1 - Malignant neoplasm of right kidney, except renal pelvis (9) S/P ERCP Code(s): Z98.890 - OTHER SPECIFIED POSTPROCEDURAL STATES (10) S/P TAVR (transcatheter aortic valve replacement) Code(s): Z95.2 - PRESENCE OF PROSTHETIC HEART VALVE (11) S/P laparoscopic cholecystectomy Code(s): Z90.49 - ACQUIRED ABSENCE OF OTHER SPECIFIED PARTS OF DIGESTIVE TRACT (12) Hypertension Code(s): I10 - ESSENTIAL (PRIMARY) HYPERTENSION Qualifiers: Hypertension type: essential hypertension Qualified Code(s): I10 - Essential (primary) hypertension (13) Gastric ulcer due to nonsteroidal anti-inflammatory drug (NSAID) Code(s): K25.9 - GASTRIC ULCER, UNSP ACUTE OR CHRONIC, W/O HEMOR OR PERF T39.395A - ADVERSE EFFECT OF NONSTEROIDAL ANTI-INFLAMMATORY DRUGS, INIT (14) Thrombocytopenia Code(s): D69.6 - THROMBOCYTOPENIA, UNSPECIFIED Assessment/Plan 08/08/2016 Echo: Normal LV and RV size with severely decreased LV systolic fxn, mod-severe decrease RV fxn, mod MR, mild TR 1. Recurrent gastrointestinal bleed, most likely related to AVM's, no further bleed 2. Coronary artery disease, post PCI/stent, angina pectoris 3. 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 Aortic stenosis Post TAVR 5. Hypertension 6. Anemia and thrombocytopenia 7. CKD with history of renal cancer post right nephrectomy 8. History of ERCP, biliary stent implant/removal and stone retrieval for ascending cholangitis PLAN: 1. Continue Protonix 40 bid 2. Continue Carvedilol 3.125 bid hemodynamics permitting 3. Continue Lipitor 10 qd 4. Prn PRBC and platelet transfusions, maintain Hg equal or > 8.0 and platelet equal or > 80 5. D/c planning with CV f/u with Dr. Aubrey Vieyra at [facility].
--- NOTE | 2016-12-20 12:35 | DS ---
Physical Exam: SUBJECTIVE: Patient seen and examined at bed side. No acute events over night. no bloody BM, He denies fever, chills, N/V/D/.C. No CP, OB, palpitation , lightheadedness , fatigue was reported. asking to go home. OBJECTIVE: Vital Signs Period Temp Pulse Resp BP Sys/Hinkle Pulse Ox Last 24 Hr 97.3 F-98.0 F 57-60 16-19 117-128/56-61 96-97 PHYSICAL EXAM GENERAL: The patient is awake, alert, and fully oriented, in no acute distress. HEAD: Normal with no signs of trauma. EYES: sclera anicteric, conjunctiva clear. No ptosis. ENT: moist mucous membranes. LUNGS: Breath sounds equal, clear to auscultation bilaterally, no wheezes, no crackles, no accessory muscle use. HEART: Regular rate and rhythm, S1, S2 with 2/6 sytolic murmur,no rub or gallop. ABDOMEN: Soft, nontender, nondistended, normoactive bowel sounds, no guarding, no rebound EXTREMITIES: warm, well-perfused, no edema. NEUROLOGICAL: good mentation PSYCH: Normal mood, normal affect. SKIN: Warm, dry, no rashes or lesions noted LABS Laboratory Results - last 24 hr 12/20/16 12/20/16 08:45 08:45 WBC 7.0 D RBC 3.34 L Hgb 10.3 L D Hct 30.5 L MCV 91.4 MCH 30.8 MCHC 33.7 RDW 16.6 H Plt Count 109 L D MPV 9.0 Sodium 138 Potassium 3.5 Chloride 104 Carbon Dioxide 27 Anion Gap 7 L BUN 18 Creatinine 1.4 H Random Glucose 99 Calcium 8.0 L CBC, BMP 12/20/16 08:45 12/20/16 08:45 HOSPITAL COURSE: Date of Admission:12/11/16 Date of Discharge: 12/20/16 86M w/ extensive PMH CAD, S/P stent , CKD, , choledocholithiasis and cholangitis, most recently 11/24 s/p ERCP and CBD stent removal, who presented with mechanical fall, found to have a Hgb of 6.3 and melena in the ED, admitted to the ICU for suspected upper GI bleed. Total of 10 units of PRBC, 2 FFP and 4 units of platlets were transfused during the hospital course. Abdominal CTA was negative for bleeding . GI was consulted and EGD was done that showed 2 gastric ulcers in the fundus with no active bleeding or visible vessel. bleeding scan is differed when H/H are stable. Vit K , DDAVP, Protonix was given too. The bleeding most likely secondary to AVM or diverticulosis in the colon. In the term of the mechanical fall the images are negative for fractures and able to walk wit PT up to 100 feet. pain has been improved and tolerating well with Tylenol. Patient will be discharged home with visiting nurse. In term of Hypertension it is well controlled and his Carvidilol has been decreased to 3.125 mg BID . No Aspirine , antiplatelets , Ibuprofen, advil, anticoagulation are allowed till he see his PCP or His GI doctor Rian.Explained risk of bleeding to the patient. will use Tylenol only for pain as needed. 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 You can use Tylenol for pain as needed. In the emergency you were found to have low blood count and total 10 units of blood, 3 units of platelets, 1 unit of fresh frozen plasma was transfused during the hospitalisation. You could be blkeeding from the gastro enterolgy system. the bleeding has stopped for now Your blood count has been stable for more than 24 hours , you tolerated the regular diet. you will be send home with nursing visit. You were found to have small nodule on your lung scan please follow as out patient with your lung doctor. Please take your medicine as prescribed Please take the following medicine Your dose of carvedilol has been decreased to 3.125 twice daily . for blood pressure Atorvastatin 10 mg daily Protonix 40 twice a day for 2 weeks and then once a day per Tylenol 650 mg for pain every 8 hours as needed Please stop the following medicine Aspirin, Advil, motrin, Ibuprofen, any blood thinner or anticoagulation like clopidogrel. Please use fall precaution at home to avoid any fall, Please keep your self hydrated to avoid any drop in your blood pressure Please resume your daily activity as tolerated Please advance your diet as tolerated. Please follow high fiber diet and avoid constipation , use stool softeners as tolerated. Please follow with your primary care physician within a week .to follow up on your blood count. Please follow up with the gastro enteroloy doctor within 2 weeks. Please follow up with your shell coremaker DR.Martin Vieyra within 2 weeks. Please if you notice any blood in the stool, blood in urine, or any other bleeding come back to the emergency department as soon as possible. If you develop any fever,chills, bleeding in the stool, urine, or your symptoms worsen please come back to emergency department GERI. Referrals: Aubrey Vieyra [Non Staff, Medical] - 1 Week Ignacio Parks MD [Staff Physician] - 2 Weeks Melvin Goff MD [Primary Care Provider] - 1 Week Joshua Waldron MD [Staff Physician] - Disposition: VNS/HOME HEALTH CARE - Home Medications Comprehensive Discharge Medication List: Ambulatory Orders Finasteride 5 mg PO DAILY 05/13/16 Ursodiol 300 mg PO BID capsule 10/03/16 Montelukast Sodium [Singulair] 10 mg PO DAILY tablet 11/07/16 Atorvastatin Calcium 10 mg PO DAILY tablet 11/09/16 Tamsulosin HCl [Flomax -] 0.4 mg PO DAILY 11/23/16 Ursodiol [Actigall] 300 mg PO BID #180 capsule 11/23/16 Phenol [Chloraseptic -] 1 spray MM Q6HPO PRN #1 bottle 11/30/16 Carvedilol [Coreg -] 3.125 mg PO BID #60 tablet 12/20/16 Docusate Sodium [Colace -] 300 mg PO HS PRN #21 cap 12/20/16 Pantoprazole Sodium [Protonix -] 40 mg PO BID #60 tab 12/20/16 Polyethylene Glycol 3350 [Miralax 119 gm Btl -] 17 gm PO DAILY PRN #1 bottle This patient is new to me today: No Emergency Visit: Yes ED Registration Date: 12/11/16 Care time: The patient presented to the Emergency Department on the above date and was hospitalized for further evaluation of their emergent condition. Critical Care patient: No - Discharge Referral Referred to [facility] Med [facility].C.: No
[2016-12-20 14:21] VITALS: BP 105/54; PULSE 56; TEMP 97.4
--- NOTE | 2016-12-20 15:12 | PN ---
Progress Note, Physician History of Present Illness: Pt seen and examined at bedside. He is awake and alert. He denies any blood in the stool. - Current Medication List Current Medications: Active Medications Acetaminophen (Tylenol -) 650 mg PO Q6H PRN PRN Reason: FEVER OR PAIN Last Admin: 12/20/16 05:21 Dose: 650 mg Atorvastatin Calcium (Lipitor -) 10 mg PO HS COUNTS INCLUDE 234 BEDS AT THE [facility] Last Admin: 12/19/16 21:02 Dose: 10 mg Carvedilol (Coreg -) 3.125 mg PO BID COUNTS INCLUDE 234 BEDS AT THE [facility] Last Admin: 12/20/16 09:04 Dose: 3.125 mg Pantoprazole Sodium (Protonix -) 40 mg PO BID COUNTS INCLUDE 234 BEDS AT THE [facility] Last Admin: 12/20/16 09:04 Dose: 40 mg - Objective Vital Signs: Vital Signs Temperature 97.4 F L 12/20/16 14:00 Pulse Rate 56 L 12/20/16 14:00 Respiratory Rate 17 12/20/16 14:00 Blood Pressure 105/54 12/20/16 14:00 O2 Sat by Pulse Oximetry (%) 97 12/20/16 08:50 Constitutional: Yes: Calm Eyes: Yes: Conjunctiva Clear HENT: Yes: Atraumatic Neck: Yes: Supple Cardiovascular: Yes: S1, S2 Respiratory: Yes: CTA Bilaterally Gastrointestinal: Yes: Soft Genitourinary: Yes: WNL Musculoskeletal: Yes: Muscle Weakness Edema: Yes Edema: LLE: Trace, RLE: Trace Neurological: Yes: Oriented Psychiatric: Yes: Oriented Labs: CBC, BMP 12/20/16 08:45 12/20/16 08:45 INR, PTT INR 1.17 (0.82-1.09) H 12/18/16 05:00 Fibrinogen 170.0 mg/dL (238-498) L 12/15/16 05:15 Problem List - Problems (1) Anemia Code(s): D64.9 - ANEMIA, UNSPECIFIED Qualifiers: Anemia type: unspecified type Qualified Code(s): D64.9 - Anemia, unspecified (2) GI (gastrointestinal hemorrhage) Code(s): K92.2 - GASTROINTESTINAL HEMORRHAGE, UNSPECIFIED Qualifiers: GI bleed type/associated pathology: melena Qualified Code(s): K92.1 - Melena (3) CRISS (acute kidney injury) Code(s): N17.9 - ACUTE KIDNEY FAILURE, UNSPECIFIED (4) CAD (coronary artery disease) Code(s): I25.10 - ATHSCL HEART DISEASE OF [place] CORONARY ARTERY W/O ANG PCTRS Qualifiers: Coronary Disease-Associated Artery/Lesion type: unspecified vessel or lesion type [place] vs. transplanted heart: [place] heart Associated angina: without angina Qualified Code(s): I25.10 - Atherosclerotic heart disease of [place] coronary artery without angina pectoris (5) CKD (chronic kidney disease) Code(s): N18.9 - CHRONIC KIDNEY DISEASE, UNSPECIFIED Qualifiers: Chronic kidney disease stage: stage 3 (moderate) Qualified Code(s): N18.3 - Chronic kidney disease, stage 3 (moderate) Assessment/Plan Current Medications Generic Name Dose Route Start Last Admin Trade Name Freq PRN Reason Stop Dose Admin Acetaminophen 650 mg 12/18/16 20:20 12/20/16 05:21 Tylenol - PO 650 mg Q6H PRN Administration FEVER OR PAIN Atorvastatin Calcium 10 mg 12/18/16 22:00 12/19/16 21:02 Lipitor - PO 10 mg HS SUBHA Administration Carvedilol 3.125 mg 12/18/16 22:00 12/20/16 09:04 Coreg - PO 3.125 mg BID SUBHA Administration Pantoprazole Sodium 40 mg 12/18/16 22:00 12/20/16 09:04 Protonix - PO 40 mg BID SUBHA Administration Impression 1. hx CKD 2. CRISS improving 3. choledocholithiasis 4. CAD 5. hx of Renal Cell Cancer s/p nephroectomy 6. aortic stenosis 7. GI bleed 8. anemia Plan - bmp reviewed and renal function is stale - hg is stable - can see as outpt - no acute change in management - pt tolerating diet - will follow Dr Medina
--- NOTE | 2016-12-20 18:10 | PN ---
Teaching Attending Note Name of Resident: Jerome Martin ATTENDING PHYSICIAN STATEMENT I saw and evaluated the patient. I reviewed the resident's note and discussed the case with the resident. I agree with the resident's findings and plan as documented. SUBJECTIVE: OBJECTIVE: Vital Signs Period Temp Pulse Resp BP Sys/Hinkle Pulse Ox Last 24 Hr 97.4 F-98.0 F 56-60 16-18 105-122/54-60 96-97 ASSESSMENT AND PLAN:
== END 2016-12-20 15:46 | disposition home health service (06) | DRG 378 ==
LOC: JER 13:11 → JERBED 16:55 → JICU 23:14 → J6S 12-18 20:08
PROVIDERS: ADMIT Internal Medicine; ATTEND Internal Medicine
PROC: 30233H1 Transfusion of Nonautologous Whole Blood into Peripheral Vein, Percutaneous Approach (ICD-10-PCS; 2016-12-11)
PROC: 0DJ08ZZ Inspection of Upper Intestinal Tract, Via Natural or Artificial Opening Endoscopic (ICD-10-PCS; principal; 2016-12-12 11:30)
PROC: 30233K1 Transfusion of Nonautologous Frozen Plasma into Peripheral Vein, Percutaneous Approach (ICD-10-PCS; 2016-12-15)
PROC: 30233R1 Transfusion of Nonautologous Platelets into Peripheral Vein, Percutaneous Approach (ICD-10-PCS; 2016-12-15)
DX: K25.0 Acute gastric ulcer with hemorrhage (principal); D62 Acute posthemorrhagic anemia; N17.9 Acute kidney failure, unspecified; T47.1X5A Adverse effect of other antacids and anti-gastric-secretion drugs, initial encounter; T39.395A Adverse effect of other nonsteroidal anti-inflammatory drugs [NSAID], initial encounter; T45.525A Adverse effect of antithrombotic drugs, initial encounter; K25.4 Chronic or unspecified gastric ulcer with hemorrhage; I12.9 Hypertensive chronic kidney disease with stage 1 through stage 4 chronic kidney disease, or unspecified chronic kidney disease; N18.3 Chronic kidney disease, stage 3 (moderate); D69.6 Thrombocytopenia, unspecified; R91.1 Solitary pulmonary nodule; K92.1 Melena; Q27.33 Arteriovenous malformation of digestive system vessel; I25.2 Old myocardial infarction; Z95.5 Presence of coronary angioplasty implant and graft; Z95.4 Presence of other heart-valve replacement; Z90.5 Acquired absence of kidney; N40.0 Benign prostatic hyperplasia without lower urinary tract symptoms; E78.00 Pure hypercholesterolemia, unspecified; K59.00 Constipation, unspecified; S39.82XA Other specified injuries of lower back, initial encounter; W01.0XXA Fall on same level from slipping, tripping and stumbling without subsequent striking against object, initial encounter; Y93.89 Activity, other specified; Y92.012 Bathroom of single-family (private) house as the place of occurrence of the external cause; Y99.8 Other external cause status; I25.10 Atherosclerotic heart disease of native coronary artery without angina pectoris; Z85.528 Personal history of other malignant neoplasm of kidney; Z80.0 Family history of malignant neoplasm of digestive organs; D63.8 Anemia in other chronic diseases classified elsewhere; I34.0 Nonrheumatic mitral (valve) insufficiency
CPT/HCPCS: 36415; 36430; 36511; 71010-TC; 72170-TC; 74175-TC; 80048; 80053; 81003; 81015; 82272; 82607; 82728; 82746; 82803; 83010; 83540; 83550; 83605; 83615; 83735; 83880; 84100; 84484; 85025; 85027; 85044; 85384; 85610; 85730; 86022; 86850; 86900; 86901; 86922; 87040; 87086; 93005; 93010; 97116-GP; 97161-GP; 99285-25; J2597; P9017; P9034; P9038; P9058

== ENCOUNTER 2018-08-20 09:14 | Inpatient (IN) | payer OTHER ==
[2018-08-20] MEDS ORDERED: ACETAMINOPHEN INJECTION 100 ML IVPB ONE (09:34)
[2018-08-20] MEDS ORDERED: ACETAMINOPHEN 1000 MG/100 ML VIAL (NON FORMULARY) IVPB ONE (09:41)
--- NOTE | 2018-08-20 09:41 | PDOC ---
History of Present Illness - General Chief Complaint: SIRS, Suspected/Possible Stated Complaint: FEELS COLD Time Seen by Provider: 08/20/18 09:41 - History of Present Illness Initial Comments: 08/20/18 11:10 Chief complaint: Chills History of present illness: Patient states that he has been experiencing chills approximately once daily for the last 3 or 4 days. He has had no other symptoms. When this has occurred in the past, he has had a UTI. Review of systems: Denies abdominal pain, nausea, vomiting, diarrhea. He appears to be urinating and defecating normally. No chest pain, shortness of breath, visual or focal neurologic symptoms, unsteadiness of gait. Past medical history: Extensive past medical history including recurrent UTIs, elevated cholesterol, coronary artery disease, valvular heart disease, COPD, BPH , and GERD. Medications include Lipitor, finasteride, Singulair, Protonix, tamsulosin. Social history: Lives with , ambulates with walker, no tobacco alcohol or nonprescription drugs. Moderately active and cares for self Family history: Reviewed and noncontributory including early coronary artery disease, metabolic disease including diabetes, and cancer Physical exam: Alert, oriented, cheerful and cooperative, no acute distress Temperature 102.1, remainder vital signs normal Pale, nonicteric. PERRLA, ENT clear Neck supple without bruit mass or nodes Chest clear, full breath sounds bilaterally. Hyperresonance. Flattened diaphragms to percussion CV S1 and S2 distant, 2/6 systolic ejection murmur left sternal border without radiation, pulses full. One plus pedal edema. Abdomen nondistended. Bowel sounds normal. Soft without mass tenderness organomegaly Neurological C2 to 12 intact. Generalized weakness but no focal sensory or motor deficits. Skin clear, no rash, adequate turgor and wet membranes Extremities no cyanosis or clubbing Impression: Shaking chills, possible occult infection, rule out UTI, pneumonia, or other occult source. Plan: CBC and chemistries, blood cultures and urinalysis, urine culture, judicious fluids and observation. Further treatment depending on results Past History - Past Medical History Allergies/Adverse Reactions: Allergies Allergy/AdvReac Type Severity Reaction Status Date / Time piperacillin [From Zosyn] Allergy Intermediate Rash Verified 08/20/18 13:17 tazobactam [From Zosyn] Allergy Intermediate Rash Verified 08/20/18 13:17 Home Medications: Ambulatory Orders Atorvastatin Ca [Lipitor] 40 mg PO HS 08/20/18 Finasteride 5 mg PO DAILY 08/20/18 Fluticasone Propionate [Flovent Diskus] 50 mcg IH PRN 08/20/18 Montelukast Na [Singulair -] 10 mg PO HS 08/20/18 Pantoprazole Sodium 40 mg PO DAILY 08/20/18 Tamsulosin HCl 0.4 mg PO DAILY 08/20/18 Tiotropium [place] [Spiriva] 1 inh PO DAILY 08/20/18 Anemia: No Cancer: Yes (R.KIDNEY, WITH RIGHT NEPHRECTOMY) Cardiac Disorders: Yes (valve disease) COPD: Yes Disorders: Yes (URINARY RETENTION,BPH) HTN: Yes Hypercholesterolemia: Yes Other medical history: GERD - Surgical History Cardiac Surgery: Yes (Angioplasty with stent,AORTIC VALVE SX) - Immunization History Immunization Up to Date: Yes - Suicide/Smoking/Psychosocial Hx Smoking History: Never smoked Have you smoked in the past 12 months: No Information on smoking cessation initiated: No Hx Alcohol Use: No Drug/Substance Use Hx: No Substance Use Type: None Hx Substance Use Treatment: No *Physical Exam - Vital Signs Last Vital Signs Temp Pulse Resp BP Pulse Ox 102.1 F H 92 H 20 135/57 L 96 08/20/18 09:21 08/20/18 09:21 08/20/18 09:21 08/20/18 09:21 08/20/18 09:21 ED Treatment Course - LABORATORY CBC & Chemistry Diagram: 08/20/18 09:50 08/20/18 09:50 Medical Decision Making - Medical Decision Making 08/20/18 12:20 White blood count 3.9 with a left shift Lactic acid is elevated. Urinalysis shows sign of UTI. Most likely diagnosis is urosepsis. Cultures are pending. Antibiotics administered. Blood pressure is stabilized area and admit for further evaluation and treatment to the hospitalist service. Patient remains clinically and hemodynamically stable. Because of extensive cardiac history, judicious administration of fluids. Probably would not tolerate full full sepsis protocol without risk of severe volume overload. 08/20/18 13:13 After the infusion of Zosyn, patient developed splotchy erythema of the face and neck. No swelling or irritation in the throat, tongue, lips, or face. No wheezing or chest tightness. No abdominal pain or tenderness. Benadryl was administered. Patient remains stable. 08/20/18 14:49 Patient remains stable. ALLERGIC reaction has subsided. Erythema resolving. Oropharynx, lungs remain clear. Abdomen benign. Transfer to the floor for further evaluation and treatment. Hemodynamically and clinically stable. *DC/Admit/Observation/Transfer Diagnosis at time of Disposition: Sepsis Qualifiers: Sepsis type: sepsis due to unspecified organism Qualified Code(s): A41.9 - Sepsis, unspecified organism - Discharge Dispostion Condition at time of disposition: Stable Decision to Admit order: Yes - Referrals - Patient Instructions - Post Discharge Activity
[2018-08-20 10:17] LABS: ALBUMIN 3.1 g/dl (3.4-5.0); BILIRUBIN,TOTAL 1.4 mg/dl (0.2-1); CALCIUM 8.7 mg/dl (8.5-10); CREATININE 1.8 mg/dl (0.55-1.3); POTASSIUM 4.6 mmol/L (3.5-5.1); TOT PROT 5.8 g/dl (6.4-8.2)
[2018-08-20 10:54] LABS: BASO % 0.6 % (0-2.0); EOS % 0.7 % (0-4.5); HEMATOCRIT 31.6 % (35.4-49); HEMOGLOBIN 10.3 GM/dL (11.7-16.9); LYMPH % 5.2 % (8-40); MCH 30.9 pg (25.7-33.7); MCHC 32.6 g/dl (32.0-35.9); MEAN CELL VOLUME 94.9 fl (80-96); MEAN PLT VOLUME 9.8 fl (7.5-11.1); MONO % 0.7 % (3.8-10.2); NEUT % 92.8 % (42.8-82.8); PLATELET COUNT 73 K/MM3 (134-434); RBC 3.33 M/mm3 (4.00-5.60); RDW 15.1 % (11.9-15.9); WHITE BLOOD COUNT 3.9 K/mm3 (4.0-10.0)
[2018-08-20] MEDS ORDERED: SODIUM CHLORIDE 1,000 ML IV STA (10:54)
[2018-08-20 11:24] LABS: EPITHELIAL CELLS 2+ /hpf
[2018-08-20] MEDS ORDERED: PIPERACILLIN/TAZOB 3.375 GM 3.375 GM in DEXTROSE 5%-WATER - 50 ML IVPB ONE (12:15)
[2018-08-20] MEDS ORDERED: PIPERACILLIN/TAZOBACTAM 3.375 GM VIAL IVPB ONE (12:19)
[2018-08-20] MEDS: SODIUM CHLORIDE 0.45% 1,000 ML IV SCH (12:23)
--- NOTE | 2018-08-20 13:56 | HP ---
CHIEF COMPLAINT: Fever, chills PCP: Dr. Mack Parks Urologist: Dr. Aleman HISTORY OF PRESENT ILLNESS: 85 year-old male with a significant PMH of HTN, HLD, CAD s/p stent placement, aortic stenosis s/p TAVR, COPD, BPH, urinary retention, recurrent UTIs, renal cell cancer s/p right nephrectomy, and GERD. Patient presented to the ED with a complaint of chills x 3-4 days. When this has occurred in the past, he has had a UTI. Denies dysuria, frequency, urgency, hematuria. ER course was notable for: (1) WBC 3.9, T 102.1, p 92, lactic acid 4.6, +pyuria (2) Given Zosyn x 1 dose, developed splotchy erythema of face and neck, benadryl administered with resolution of symptoms Recent Travel: No PAST MEDICAL HISTORY: Hypertension Hyperlipidemia Coronary artery disease Aortic stenosis COPD BPH Urinary retention/recurrent UTIs Renal cell carcinoma GERD PAST SURGICAL HISTORY: Ureteral stricture dilitations Right nephrectomy Social History: lives with in house, still drives, independent Smoking: never Alcohol: no Drugs: no Family History: Allergies piperacillin [From Zosyn] Allergy (Intermediate, Verified 08/20/18 13:17) Rash tazobactam [From Zosyn] Allergy (Intermediate, Verified 08/20/18 13:17) Rash HOME MEDICATIONS: Home Medications Medication Instructions Recorded Atorvastatin Ca [Lipitor] 40 mg PO HS 08/20/18 Finasteride 5 mg PO DAILY 08/20/18 Fluticasone Propionate [Flovent 50 mcg IH PRN 08/20/18 Diskus] Montelukast Na [Singulair -] 10 mg PO HS 08/20/18 Pantoprazole Sodium 40 mg PO DAILY 08/20/18 Tamsulosin HCl 0.4 mg PO DAILY 08/20/18 Tiotropium [place] [Spiriva] 1 inh PO DAILY 08/20/18 REVIEW OF SYSTEMS CONSTITUTIONAL: +chills Absent: fever, chills, diaphoresis, generalized weakness, malaise, loss of appetite, weight change HEENT: Absent: rhinorrhea, nasal congestion, throat pain, throat swelling, difficulty swallowing, mouth swelling, ear pain, eye pain, visual changes CARDIOVASCULAR: Absent: chest pain, syncope, palpitations, irregular heart rate, lightheadedness , peripheral edema RESPIRATORY: Absent: cough, shortness of breath, dyspnea with exertion, orthopnea, wheezing, stridor, hemoptysis GASTROINTESTINAL: Absent: abdominal pain, abdominal distension, nausea, vomiting, diarrhea, constipation, melena, hematochezia GENITOURINARY: Absent: dysuria, frequency, urgency, hesitancy, hematuria, flank pain, genital pain MUSCULOSKELETAL: Absent: myalgia, arthralgia, joint swelling, back pain, neck pain SKIN: Absent: rash, itching, pallor HEMATOLOGIC/IMMUNOLOGIC: Absent: easy bleeding, easy bruising, lymphadenopathy, frequent infections ENDOCRINE: Absent: unexplained weight gain, unexplained weight loss, heat intolerance, cold intolerance NEUROLOGIC: Absent: headache, focal weakness or paresthesias, dizziness, unsteady gait, seizure, mental status changes, bladder or bowel incontinence PSYCHIATRIC: Absent: anxiety, depression, suicidal or homicidal ideation, hallucinations. PHYSICAL EXAMINATION Vital Signs - 24 hr 08/20/18 08/20/18 08/20/18 09:21 10:05 10:30 Temperature 102.1 F H Pulse Rate 92 H Pulse Rate [ 88 Apical] Respiratory 20 20 Rate Blood Pressure 135/57 L Blood Pressure 83/51 L 92/78 [Right Arm] O2 Sat by Pulse 96 Oximetry (%) 08/20/18 08/20/18 08/20/18 11:02 12:11 12:24 Temperature 101.1 F H 100.2 F H Pulse Rate Pulse Rate [ 78 78 Apical] Respiratory 20 18 Rate Blood Pressure Blood Pressure 99/62 97/55 L [Right Arm] O2 Sat by Pulse 94 L Oximetry (%) 08/20/18 08/20/18 12:53 13:15 Temperature Pulse Rate Pulse Rate [ 72 78 Apical] Respiratory 18 20 Rate Blood Pressure Blood Pressure 105/56 L 108/64 [Right Arm] O2 Sat by Pulse 95 Oximetry (%) GENERAL: Awake, alert, and fully oriented, in no acute distress. LUNGS: Breath sounds equal, clear to auscultation bilaterally. No wheezes, and no crackles. No accessory muscle use. HEART: Regular rate and rhythm, S1 and S2 ABDOMEN: Soft, nontender, not distended UPPER EXTREMITIES: 2+ pulses, warm, well-perfused. No cyanosis. No clubbing. No peripheral edema. LOWER EXTREMITIES: 2+ pulses, warm, well-perfused. No calf tenderness. No peripheral edema. NEUROLOGICAL: Cranial nerves II-XII intact. Normal speech. Laboratory Results - last 24 hr 08/20/18 08/20/18 08/20/18 09:50 09:50 09:50 WBC 3.9 L RBC 3.33 L Hgb 10.3 L Hct 31.6 L MCV 94.9 MCH 30.9 MCHC 32.6 RDW 15.1 Absolute Neuts (auto) 3.7 Neutrophils % 92.8 H D Lymphocytes % 5.2 L D Monocytes % 0.7 L D Eosinophils % 0.7 D Basophils % 0.6 Nucleated RBC % 0 Sodium 140 Potassium 4.6 Chloride 107 Carbon Dioxide 19 L Anion Gap 14 BUN 35 H Creatinine 1.8 H Est GFR (CKD-EPI)AfAm 37.83 Est GFR (CKD-EPI)NonAf 32.64 Random Glucose 150 H Lactic Acid Calcium 8.7 Total Bilirubin 1.4 H AST 28 ALT 14 Alkaline Phosphatase 78 Creatine Kinase 38 Troponin I 0.04 Total Protein 5.8 L Albumin 3.1 L Urine Color Urine Appearance Urine pH Urine Protein Urine Glucose (UA) Urine Ketones Urine Blood Urine Nitrite Urine Bilirubin Urine Urobilinogen Ur Leukocyte Esterase Urine RBC Urine WBC Ur Transition Epith Cell Urine Bacteria 08/20/18 08/20/18 09:50 11:03 WBC RBC Hgb Hct MCV MCH MCHC RDW Absolute Neuts (auto) Neutrophils % Lymphocytes % Monocytes % Eosinophils % Basophils % Nucleated RBC % Sodium Potassium Chloride Carbon Dioxide Anion Gap BUN Creatinine Est GFR (CKD-EPI)AfAm Est GFR (CKD-EPI)NonAf Random Glucose Lactic Acid 4.6 H* Calcium Total Bilirubin AST ALT Alkaline Phosphatase Creatine Kinase Troponin I Total Protein Albumin Urine Color Yellow Urine Appearance Clear Urine pH 5.0 Urine Protein 1+ H Urine Glucose (UA) Negative Urine Ketones Trace Urine Blood 2+ H Urine Nitrite Positive Urine Bilirubin 1+ H Urine Urobilinogen 1.0 Ur Leukocyte Esterase 1+ Urine RBC 5-10 Urine WBC 50-100 Ur Transition Epith Cell 2+ Urine Bacteria 4+ ASSESSMENT/PLAN 85 year-old male with a significant PMH of HTN, HLD, CAD s/p stent placement, aortic stenosis s/p TAVR, COPD, BPH, urinary retention, recurrent UTIs, renal cell cancer s/p right nephrectomy, and GERD. Admitted for severe sepsis secondary to UTI. Severe sepsis secondary to UTI --on admission, WBC 3.9, T 102.1, p 92, lactic acid 4.6, +pyuria --rash reaction to Zosyn in ED --switched to meropenem --IV fluids given, repeat lactic acid wnl --ID to follow Hypertension --BP stable, not on antihypertensives Hyperlipidemia --continue Lipitor Coronary artery disease --not on daily ASA, beta keo Aortic stenosis s/p TAVR --cautious IV fluids COPD --stable --continue Spiriva BPH Urinary retention --continue finasteride Renal cell carcinoma s/p right nephrectomy GERD --protonix FEN Fluids: PO intake adequate Electrolytes: replete as indicated Nutrition: low sodium DVT prophylaxis: subq heparin Visit type - Emergency Visit Emergency Visit: Yes ED Registration Date: 08/20/18 Care time: The patient presented to the Emergency Department on the above date and was hospitalized for further evaluation of their emergent condition. - New Patient This patient is new to me today: Yes Date on this admission: 08/21/18 - Critical Care Critical Care patient: No
[2018-08-20 13:59] LABS: ANISOCYTOSIS 1+; MACROCYTOSIS 1+; OVALOCYTE 1+; PLATELET ESTIMATE DECREASED
[2018-08-20 14:30] VITALS: BMI 23.9
[2018-08-20] MEDS ORDERED: DEXTROSE 5%-WATER 100 ML IVPB ONE (17:32)
[2018-08-20] MEDS ORDERED: MEROPENEM 1 GM VIAL (RESTRICTED TO ID) IVPB ONE (17:33)
[2018-08-20] MEDS: MEROPENEM 1 GM in DEXTROSE 5%-WATER 100 ML IVPB SCH (17:42)
[2018-08-20] MEDS ORDERED: HEPARIN NA (PORCINE) 5,000 UNITS/ML 1ML VIAL SQ SCH (18:00)
[2018-08-20] MEDS: ATORVASTATIN CA 40 MG TABLET (FP) PO SCH (21:26)
[2018-08-20] MEDS: MONTELUKAST NA 10 MG TABLET PO SCH (21:26)
[2018-08-20] MEDS: MOMETASONE FUROATE 110 MCG/IH INHALER IH SCH (23:23)
[2018-08-21] MEDS ORDERED: DEXTROSE 5%-WATER 100 ML IVPB ONE ×2 (05:28→17:30)
[2018-08-21] MEDS ORDERED: MEROPENEM 1 GM VIAL (RESTRICTED TO ID) IVPB ONE ×2 (05:29→17:30)
[2018-08-21] MEDS: MEROPENEM 1 GM in DEXTROSE 5%-WATER 100 ML IVPB SCH ×2 (06:08→17:32)
[2018-08-21 08:22] LABS: ALBUMIN 2.6 g/dl (3.4-5.0); BILIRUBIN,TOTAL 0.9 mg/dl (0.2-1); CALCIUM 8.1 mg/dl (8.5-10); CREATININE 1.7 mg/dl (0.55-1.3); MAGNESIUM 1.9 mg/dL (1.8-2.4); POTASSIUM 4.4 mmol/L (3.5-5.1)
[2018-08-21] MEDS ORDERED: PT OWN MED DRAWER 7, Y5N ONE ×3 (09:05→22:30)
[2018-08-21 09:09] LABS: BASO % 0.8 % (0-2.0); EOS % 3.2 % (0-4.5); HEMATOCRIT 27.6 % (35.4-49); HEMOGLOBIN 9.1 GM/dL (11.7-16.9); LYMPH % 16.4 % (8-40); MCHC 33.1 g/dl (32.0-35.9); MEAN CELL VOLUME 93.8 fl (80-96); MEAN PLT VOLUME 10.2 fl (7.5-11.1); NEUT % 65.6 % (42.8-82.8); PLATELET COUNT 67 K/MM3 (134-434); RBC 2.94 M/mm3 (4.00-5.60); WHITE BLOOD COUNT 3.4 K/mm3 (4.0-10.0)
[2018-08-21] MEDS: TAMSULOSIN HCL 0.4 MG CAP PO SCH (09:28)
[2018-08-21] MEDS: FINASTERIDE 5 MG TABLET (FP) PO SCH (09:28)
[2018-08-21] MEDS: PANTOPRAZOLE 40 MG TABLET (FP) PO SCH (09:28)
[2018-08-21] MEDS: TIOTROPIUM BROMIDE 2.5 MCG (SPIRIVA) RESPIMAT INHALER IH SCH (09:29)
[2018-08-21] MEDS ORDERED: PATIENT'S OWN MEDICATION (NON-FORMULARY) (Tiotropium Bromide [Spiriva] 1 INH) PO SCH (10:00)
[2018-08-21] MEDS: SODIUM CHLORIDE 0.45% 1,000 ML IV SCH (12:15)
[2018-08-21 12:16] LABS: ANISOCYTOSIS 1+; MACROCYTOSIS 1+; OVALOCYTE 1+; PLATELET ESTIMATE DECREASED
--- NOTE | 2018-08-21 12:58 | PN ---
Physical Exam: SUBJECTIVE: Patient seen and examined oob to chair. OBJECTIVE: Vital Signs Period Temp Pulse Resp BP Sys/Hinkle Pulse Ox Last 24 Hr 97.6 F-98.9 F 56-80 16-20 105-129/46-64 94-98 GENERAL: Awake, alert, and fully oriented, in no acute distress. LUNGS: Breath sounds equal, clear to auscultation bilaterally. No wheezes, and no crackles. No accessory muscle use. HEART: Regular rate and rhythm, S1 and S2 ABDOMEN: Soft, nontender, not distended UPPER EXTREMITIES: 2+ pulses, warm, well-perfused. No cyanosis. No clubbing. No peripheral edema. LOWER EXTREMITIES: 2+ pulses, warm, well-perfused. No calf tenderness. No peripheral edema. NEUROLOGICAL: Cranial nerves II-XII intact. Normal speech. Laboratory Results - last 24 hr 08/20/18 08/20/18 08/20/18 09:50 09:50 13:30 WBC RBC Hgb Hct MCV MCH MCHC RDW Plt Count 73 L D MPV 9.8 Absolute Neuts (auto) Neutrophils % Neutrophils % (Manual) 86.1 H Band Neutrophils % 6.0 Lymphocytes % Lymphocytes % (Manual) 6.9 L Monocytes % Monocytes % (Manual) 0 L Eosinophils % Eosinophils % (Manual) 1.0 Basophils % Basophils % (Manual) 0.0 Myelocytes % (Man) 0 Promyelocytes % (Man) 0 Blast Cells % (Manual) 0 Nucleated RBC % Metamyelocytes 0 Hypochromia 0 Platelet Estimate Decreased Platelet Comment No clumping noted Polychromasia 0 Poikilocytosis 3+ Anisocytosis 1+ Microcytosis 0 Macrocytosis 1+ Ovalocytes 1+ Acanthocytes (Spur) Schistocytes 1+ Sodium Potassium Chloride Carbon Dioxide Anion Gap BUN Creatinine Est GFR (CKD-EPI)AfAm Est GFR (CKD-EPI)NonAf Random Glucose Lactic Acid 4.6 H* 0.8 Calcium Magnesium Total Bilirubin AST ALT Alkaline Phosphatase Total Protein Albumin 08/21/18 08/21/18 07:10 07:10 WBC 3.4 L RBC 2.94 L Hgb 9.1 L Hct 27.6 L MCV 93.8 MCH 31.0 MCHC 33.1 RDW 15.0 Plt Count 67 L MPV 10.2 Absolute Neuts (auto) 2.2 Neutrophils % 65.6 D Neutrophils % (Manual) 67.7 D Band Neutrophils % 0.0 Lymphocytes % 16.4 D Lymphocytes % (Manual) 15.2 D Monocytes % 14.0 H D Monocytes % (Manual) 12 H D Eosinophils % 3.2 D Eosinophils % (Manual) 4.0 D Basophils % 0.8 Basophils % (Manual) 1.0 D Myelocytes % (Man) 0 Promyelocytes % (Man) 0 Blast Cells % (Manual) 0 Nucleated RBC % 0 Metamyelocytes 0 Hypochromia 0 Platelet Estimate Decreased Platelet Comment Polychromasia 0 Poikilocytosis 2+ Anisocytosis 1+ Microcytosis 1+ Macrocytosis 1+ Ovalocytes 1+ Acanthocytes (Spur) 1+ Schistocytes 1+ Sodium 139 Potassium 4.4 Chloride 108 H Carbon Dioxide 21 Anion Gap 10 BUN 30 H Creatinine 1.7 H Est GFR (CKD-EPI)AfAm 40.54 Est GFR (CKD-EPI)NonAf 34.98 Random Glucose 94 Lactic Acid Calcium 8.1 L Magnesium 1.9 Total Bilirubin 0.9 AST 23 ALT 16 Alkaline Phosphatase 58 D Total Protein 5.0 L Albumin 2.6 L Active Medications Generic Name Dose Route Start Last Admin Trade Name Freq PRN Reason Stop Dose Admin Atorvastatin Calcium 40 mg 08/20/18 22:00 08/20/18 21:26 Lipitor - PO 40 mg HS SUBHA Administration Finasteride 5 mg 08/21/18 10:00 08/21/18 09:28 Proscar - PO 5 mg DAILY SUBHA Administration Sodium Chloride 1,000 mls @ 125 mls/hr 08/20/18 12:30 08/21/18 12:15 1/2 Normal Saline IV 125 mls/hr ASDIR SUBHA Administration Meropenem 1 gm/ Dextrose 100 mls @ 200 mls/hr 08/20/18 18:00 08/21/18 06:08 IVPB 200 mls/hr Q12H SUBHA Administration Mometasone Furoate 1 puff 08/20/18 22:00 08/20/18 23:23 Asmanex 110mcg - IH 1 puff HS SUBHA Administration Montelukast Sodium 10 mg 08/20/18 22:00 08/20/18 21:26 Singulair - PO 10 mg HS SUBHA Administration Pantoprazole Sodium 40 mg 08/21/18 10:00 05/30/19 09:28 Protonix - PO 40 mg DAILY SUBHA Administration Tamsulosin HCl 0.4 mg 08/21/18 08:30 08/21/18 09:28 Flomax - PO 0.4 mg DAILY@0830 SUBHA Administration Tiotropium [place] 2 puff 08/21/18 10:00 08/21/18 09:29 Spiriva Respimat IH 2 puff DAILY SUBHA Administration ASSESSMENT/PLAN: 85 year-old male with a significant PMH of HTN, HLD, CAD s/p stent placement, aortic stenosis s/p TAVR, COPD, BPH, urinary retention, recurrent UTIs, renal cell cancer s/p right nephrectomy, and GERD. Admitted for severe sepsis secondary to UTI. Severe sepsis secondary to LFGNB UTI --on admission, WBC 3.9, T 102.1, p 92, lactic acid 4.6, +pyuria --now afebrile, hemodynamically stable --rash reaction to Zosyn in ED --continue meropenem (day #2) --ID following Hypertension --BP stable, not on antihypertensives Hyperlipidemia --continue Lipitor Coronary artery disease --not on daily ASA, beta keo Aortic stenosis s/p TAVR --cautious IV fluids COPD --stable --continue Spiriva BPH Urinary retention --continue finasteride Renal cell carcinoma s/p right nephrectomy Chronic kidney disease --Cr 1.8 on admission, 1.7 today which is baseline (see Dr. Medina's note ) GERD --protonix FEN Fluids: PO intake adequate Electrolytes: replete as indicated Nutrition: low sodium DVT prophylaxis: subq heparin Physical therapy Dispo: continues to require inpatient care. Full code. Visit type - Emergency Visit Emergency Visit: Yes ED Registration Date: 08/20/18 Care time: The patient presented to the Emergency Department on the above date and was hospitalized for further evaluation of their emergent condition. - New Patient This patient is new to me today: No - Critical Care Critical Care patient: No
--- NOTE | 2018-08-21 13:50 | CON.ID ---
Consult - Past Medical History Cardio/Vascular: Yes: Aortic Stenosis (Post TAVR at [facility] in 2015), CAD (s/p cardiac stent/ PCI 1995), HTN, Hyperlipdemia Gastrointestinal: Yes: Diverticulosis, Peptic Ulcer Disease Hepatobiliary: Yes: Cholelithiasis, Choledocholithiasis (ERCP x 3 with stent insertion and removal) Renal/: Yes: Renal Failure (required dialysis in 08/08 following sepsis with ATN), Renal Inusuff, Cancer (Renal CA with right nephrectomy), Renal Calculi, Other (urethral stricture s/p cystoscopy, nephrectomy for RCC) Musculoskeletal: Yes: Other (DJD) - Past Surgical History Past Surgical History: Yes: Cholecystectomy, Nephrectomy (right nephrectomy for cancer 12/08), Stent (biliary stent 08/08, removed 12/09), Valve Replacement (TAVR) - Alcohol/Substance Use Hx Alcohol Use: No History of Substance Use: reports: None - Smoking History Smoking history: Never smoked Have you smoked in the past 12 months: No Aproximately how many cigarettes per day: 1 If you are a former smoker, when did you quit?: 60 years ago - Social History Usual Living Arrangement: With Spouse ADL: Independent 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 History of Recent Travel: No Home Medications - Allergies Allergies/Adverse Reactions: Allergies Allergy/AdvReac Type Severity Reaction Status Date / Time piperacillin [From Zosyn] Allergy Intermediate Rash Verified 08/20/18 13:17 tazobactam [From Zosyn] Allergy Intermediate Rash Verified 08/20/18 13:17 - Home Medications Home Medications: Ambulatory Orders Atorvastatin Ca [Lipitor] 40 mg PO HS 08/20/18 Finasteride 5 mg PO DAILY 08/20/18 Fluticasone Propionate [Flovent Diskus] 50 mcg IH PRN 08/20/18 Montelukast Na [Singulair -] 10 mg PO HS 08/20/18 Pantoprazole Sodium 40 mg PO DAILY 08/20/18 Tamsulosin HCl 0.4 mg PO DAILY 08/20/18 Tiotropium [place] [Spiriva] 1 inh PO DAILY 08/20/18 Family Disease History - Family Disease History Family Disease History: Other: Father ( 80's unclear cause), Mother ( 80 's CVA/[place]), Brother (1 brother CHF, 1 brother stomach cancer) Physical Exam Vital Signs: Vital Signs Temperature 97.8 F 08/21/18 10:00 Pulse Rate 63 08/21/18 10:00 Respiratory Rate 19 08/21/18 10:00 Blood Pressure 118/46 L 08/21/18 10:00 O2 Sat by Pulse Oximetry (%) 95 08/21/18 10:00 Labs: CBC, BMP 08/21/18 07:10 08/21/18 07:10
[2018-08-21] MEDS: HEPARIN NA (PORCINE) 5,000 UNITS/ML 1ML VIAL SQ SCH ×2 (15:58→22:00)
[2018-08-21] MEDS: MONTELUKAST NA 10 MG TABLET PO SCH (21:54)
[2018-08-21] MEDS: ATORVASTATIN CA 40 MG TABLET (FP) PO SCH (21:54)
[2018-08-21] MEDS: MOMETASONE FUROATE 110 MCG/IH INHALER IH SCH (22:28)
[2018-08-22] MEDS ORDERED: DEXTROSE 5%-WATER 100 ML IVPB ONE ×2 (04:57→17:19)
[2018-08-22] MEDS ORDERED: MEROPENEM 1 GM VIAL (RESTRICTED TO ID) IVPB ONE ×2 (04:57→17:19)
[2018-08-22] MEDS: MEROPENEM 1 GM in DEXTROSE 5%-WATER 100 ML IVPB SCH ×2 (05:09→17:28)
[2018-08-22] MEDS: HEPARIN NA (PORCINE) 5,000 UNITS/ML 1ML VIAL SQ SCH ×3 (05:32→21:24)
[2018-08-22] MEDS: TAMSULOSIN HCL 0.4 MG CAP PO SCH (09:00)
--- NOTE | 2018-08-22 09:00 | PN ---
Physical Exam: SUBJECTIVE: Patient seen and examined at bedside. Wants to get better, accepts he cannot leave the hospital. OBJECTIVE: Vital Signs Period Temp Pulse Resp BP Sys/Hinkle Pulse Ox Last 24 Hr 97.7 F-98.8 F 60-70 18-19 118-131/42-63 94-97 GENERAL: Awake, alert, and fully oriented, in no acute distress. LUNGS: Breath sounds equal, clear to auscultation bilaterally. No wheezes, and no crackles. No accessory muscle use. HEART: Regular rate and rhythm, S1 and S2 ABDOMEN: Soft, nontender, not distended UPPER EXTREMITIES: 2+ pulses, warm, well-perfused. No cyanosis. No clubbing. No peripheral edema. LOWER EXTREMITIES: 2+ pulses, warm, well-perfused. No calf tenderness. No peripheral edema. NEUROLOGICAL: Cranial nerves II-XII intact. Normal speech. Laboratory Results - last 24 hr 08/21/18 07:10 WBC 3.4 L RBC 2.94 L Hgb 9.1 L Hct 27.6 L MCV 93.8 MCH 31.0 MCHC 33.1 RDW 15.0 Plt Count 67 L MPV 10.2 Absolute Neuts (auto) 2.2 Neutrophils % 65.6 D Neutrophils % (Manual) 67.7 D Band Neutrophils % 0.0 Lymphocytes % 16.4 D Lymphocytes % (Manual) 15.2 D Monocytes % 14.0 H D Monocytes % (Manual) 12 H D Eosinophils % 3.2 D Eosinophils % (Manual) 4.0 D Basophils % 0.8 Basophils % (Manual) 1.0 D Myelocytes % (Man) 0 Promyelocytes % (Man) 0 Blast Cells % (Manual) 0 Nucleated RBC % 0 Metamyelocytes 0 Hypochromia 0 Platelet Estimate Decreased Polychromasia 0 Poikilocytosis 2+ Anisocytosis 1+ Microcytosis 1+ Macrocytosis 1+ Ovalocytes 1+ Acanthocytes (Spur) 1+ Schistocytes 1+ Active Medications Generic Name Dose Route Start Last Admin Trade Name Freq PRN Reason Stop Dose Admin Atorvastatin Calcium 40 mg 08/20/18 22:00 08/21/18 21:54 Lipitor - PO 40 mg HS SUBHA Administration Finasteride 5 mg 08/21/18 10:00 08/21/18 09:28 Proscar - PO 5 mg DAILY SUBHA Administration Heparin Sodium (Porcine) 5,000 unit 08/21/18 15:45 08/22/18 05:32 Heparin - SQ 5,000 unit TID SUBHA Administration Sodium Chloride 1,000 mls @ 125 mls/hr 08/20/18 12:30 08/21/18 12:15 1/2 Normal Saline IV 125 mls/hr ASDIR SUBHA Administration Meropenem 1 gm/ Dextrose 100 mls @ 200 mls/hr 08/20/18 18:00 08/22/18 05:09 IVPB 200 mls/hr Q12H SUBHA Administration Mometasone Furoate 1 puff 08/20/18 22:00 08/21/18 22:28 Asmanex 110mcg - IH 1 puff HS SUBHA Administration Montelukast Sodium 10 mg 08/20/18 22:00 08/21/18 21:54 Singulair - PO 10 mg HS SUBHA Administration Pantoprazole Sodium 40 mg 08/21/18 10:00 08/21/18 09:28 Protonix - PO 40 mg DAILY SUBHA Administration Tamsulosin HCl 0.4 mg 08/21/18 08:30 08/21/18 09:28 Flomax - PO 0.4 mg DAILY@0830 SUBHA Administration Tiotropium [place] 2 puff 08/21/18 10:00 08/21/18 09:29 Spiriva Respimat IH 2 puff DAILY SUBHA Administration ASSESSMENT/PLAN 85 year-old male with a significant PMH of HTN, HLD, CAD s/p stent placement, aortic stenosis s/p TAVR, COPD, BPH, urinary retention, recurrent UTIs, renal cell cancer s/p right nephrectomy, and GERD. Admitted for severe sepsis secondary to UTI. Severe sepsis secondary to LFGNB UTI --on admission, WBC 3.9, T 102.1, p 92, lactic acid 4.6, +pyuria --afebrile >48 hours, hemodynamically stable --rash reaction to Zosyn in ED --continue meropenem (day #3) --ID following Hypertension --BP stable, not on antihypertensives Hyperlipidemia --continue Lipitor Coronary artery disease --not on daily ASA, beta keo Aortic stenosis s/p TAVR --cautious IV fluids COPD --stable --continue Spiriva BPH Urinary retention --continue finasteride Renal cell carcinoma s/p right nephrectomy Chronic kidney disease --Cr 1.7 which is baseline (see Dr. Medina's note 12/14/16) GERD --protonix FEN Fluids: PO intake adequate Electrolytes: replete as indicated Nutrition: low sodium DVT prophylaxis: subq heparin Physical therapy Dispo: continues to require inpatient care. Full code. Visit type - Emergency Visit Emergency Visit: Yes ED Registration Date: 08/20/18 Care time: The patient presented to the Emergency Department on the above date and was hospitalized for further evaluation of their emergent condition. - New Patient This patient is new to me today: No - Critical Care Critical Care patient: No
[2018-08-22] MEDS ORDERED: PT OWN MED DRAWER 7, Y5N ONE ×2 (09:36→21:04)
[2018-08-22] MEDS: PANTOPRAZOLE 40 MG TABLET (FP) PO SCH (09:38)
[2018-08-22] MEDS: FINASTERIDE 5 MG TABLET (FP) PO SCH (09:38)
[2018-08-22] MEDS: TIOTROPIUM BROMIDE 2.5 MCG (SPIRIVA) RESPIMAT INHALER IH SCH (09:39)
--- NOTE | 2018-08-22 14:43 | PN ---
Progress Note, Physician History of Present Illness: stable improving - Current Medication List Current Medications: Active Medications Atorvastatin Calcium (Lipitor -) 40 mg PO HS [facility] Last Admin: 08/21/18 21:54 Dose: 40 mg Finasteride (Proscar -) 5 mg PO DAILY [facility] Last Admin: 08/22/18 09:38 Dose: 5 mg Heparin Sodium (Porcine) (Heparin -) 5,000 unit SQ TID [facility] Last Admin: 08/22/18 05:32 Dose: 5,000 unit Meropenem 1 gm/ Dextrose 100 mls @ 200 mls/hr IVPB Q12H [facility] Last Admin: 08/22/18 05:09 Dose: 200 mls/hr Mometasone Furoate (Asmanex 110mcg -) 1 puff IH [facility] Last Admin: 08/21/18 22:28 Dose: 1 puff Montelukast Sodium (Singulair -) 10 mg PO [facility] Last Admin: 08/21/18 21:54 Dose: 10 mg Pantoprazole Sodium (Protonix -) 40 mg PO DAILY [facility] Last Admin: 08/22/18 09:38 Dose: 40 mg Tamsulosin HCl (Flomax -) 0.4 mg PO DAILY@0830 [facility] Last Admin: 08/22/18 09:00 Dose: 0.4 mg Tiotropium [place] (Spiriva Respimat) 2 puff IH DAILY [facility] Last Admin: 08/22/18 09:39 Dose: 2 puff - Objective Vital Signs: Vital Signs Temperature 98.1 F 08/22/18 13:52 Pulse Rate 63 08/22/18 13:52 Respiratory Rate 18 08/22/18 13:52 Blood Pressure 126/60 08/22/18 13:52 O2 Sat by Pulse Oximetry (%) 98 08/22/18 13:52 Constitutional: Yes: No Distress, Calm Cardiovascular: Yes: S1, S2 Respiratory: Yes: Regular, CTA Bilaterally Gastrointestinal: Yes: Normal Bowel Sounds, Soft Musculoskeletal: Yes: WNL Extremities: Yes: WNL Neurological: Yes: Alert, Oriented Psychiatric: Yes: Alert, Oriented Labs: CBC, BMP 08/21/18 07:10 08/21/18 07:10 Assessment/Plan 85 year-old male with a significant PMH of HTN, HLD, CAD s/p stent placement, aortic stenosis s/p TAVR, COPD, BPH, urinary retention, recurrent UTIs, renal cell cancer s/p right nephrectomy, and GERD. Admitted for severe sepsis secondary to UTI. sepsis uti bph htn hld plan cx results noted patient to continue abx
[2018-08-22] MEDS: MOMETASONE FUROATE 110 MCG/IH INHALER IH SCH (21:24)
[2018-08-22] MEDS: ATORVASTATIN CA 40 MG TABLET (FP) PO SCH (21:24)
[2018-08-22] MEDS: MONTELUKAST NA 10 MG TABLET PO SCH (21:24)
[2018-08-23] MEDS ORDERED: DEXTROSE 5%-WATER 100 ML IVPB ONE ×2 (05:28→18:12)
[2018-08-23] MEDS: HEPARIN NA (PORCINE) 5,000 UNITS/ML 1ML VIAL SQ SCH ×3 (05:40→22:10)
[2018-08-23] MEDS: MEROPENEM 1 GM in DEXTROSE 5%-WATER 100 ML IVPB SCH ×2 (05:40→21:49)
[2018-08-23 09:00] LABS: ALBUMIN 2.5 g/dl (3.4-5.0); CALCIUM 8.2 mg/dl (8.5-10); CREATININE 1.4 mg/dl (0.55-1.3); MAGNESIUM 1.9 mg/dL (1.8-2.4); POTASSIUM 3.9 mmol/L (3.5-5.1); TOT PROT 4.8 g/dl (6.4-8.2)
[2018-08-23] MEDS ORDERED: PT OWN MED DRAWER 7, Y5N ONE (09:19)
[2018-08-23] MEDS: FINASTERIDE 5 MG TABLET (FP) PO SCH (09:21)
[2018-08-23] MEDS: PANTOPRAZOLE 40 MG TABLET (FP) PO SCH (09:21)
[2018-08-23] MEDS: TIOTROPIUM BROMIDE 2.5 MCG (SPIRIVA) RESPIMAT INHALER IH SCH (09:21)
[2018-08-23] MEDS: TAMSULOSIN HCL 0.4 MG CAP PO SCH (09:21)
[2018-08-23 09:58] LABS: HEMATOCRIT 28.3 % (35.4-49); HEMOGLOBIN 9.5 GM/dL (11.7-16.9); LYMPH % 24.2 % (8-40); MCH 31.1 pg (25.7-33.7); MCHC 33.5 g/dl (32.0-35.9); MEAN CELL VOLUME 92.8 fl (80-96); MEAN PLT VOLUME 9.7 fl (7.5-11.1); MONO % 8.7 % (3.8-10.2); NEUT % 57.1 % (42.8-82.8); PLATELET COUNT 80 K/MM3 (134-434); RBC 3.05 M/mm3 (4.00-5.60); RDW 14.5 % (11.9-15.9); WHITE BLOOD COUNT 3.2 K/mm3 (4.0-10.0)
--- NOTE | 2018-08-23 10:55 | PN ---
Physical Exam: SUBJECTIVE: Patient seen and examined at bedside. Finishing dinner. Friend present. In good spirits. OBJECTIVE: Vital Signs Period Temp Pulse Resp BP Sys/Hinkle Pulse Ox Last 24 Hr 98 F-98.4 F 61-66 18-18 126-141/43-67 96-98 GENERAL: Awake, alert, and fully oriented, in no acute distress. LUNGS: Breath sounds equal, clear to auscultation bilaterally. No wheezes, and no crackles. No accessory muscle use. HEART: Regular rate and rhythm, S1 and S2 ABDOMEN: Soft, nontender, not distended UPPER EXTREMITIES: 2+ pulses, warm, well-perfused. No cyanosis. No clubbing. No peripheral edema. LOWER EXTREMITIES: 2+ pulses, warm, well-perfused. No calf tenderness. No peripheral edema. NEUROLOGICAL: Cranial nerves II-XII intact. Normal speech. Laboratory Results - last 24 hr 08/23/18 08/23/18 07:10 07:10 WBC 3.2 L RBC 3.05 L Hgb 9.5 L Hct 28.3 L MCV 92.8 MCH 31.1 MCHC 33.5 RDW 14.5 Plt Count 80 L MPV 9.7 Absolute Neuts (auto) 1.8 Neutrophils % 57.1 Lymphocytes % 24.2 D Monocytes % 8.7 Eosinophils % 9.0 H D Basophils % 1.0 Nucleated RBC % 0 Sodium 140 Potassium 3.9 Chloride 113 H Carbon Dioxide 21 Anion Gap 6 L BUN 19 H Creatinine 1.4 H Est GFR (CKD-EPI)AfAm 51.26 Est GFR (CKD-EPI)NonAf 44.23 Random Glucose 88 Calcium 8.2 L Magnesium 1.9 Total Bilirubin 1.0 AST 19 ALT 16 Alkaline Phosphatase 57 Total Protein 4.8 L Albumin 2.5 L Active Medications Generic Name Dose Route Start Last Admin Trade Name Freq PRN Reason Stop Dose Admin Atorvastatin Calcium 40 mg 08/20/18 22:00 08/22/18 21:24 Lipitor - PO 40 mg HS SUBHA Administration Finasteride 5 mg 08/21/18 10:00 08/23/18 09:21 Proscar - PO 5 mg DAILY SUBHA Administration Heparin Sodium (Porcine) 5,000 unit 08/21/18 15:45 08/23/18 05:40 Heparin - SQ 5,000 unit TID SUBHA Administration Meropenem 1 gm/ Dextrose 100 mls @ 200 mls/hr 08/20/18 18:00 08/23/18 05:40 IVPB 200 mls/hr Q12H SUBHA Administration Mometasone Furoate 1 puff 08/20/18 22:00 08/22/18 21:24 Asmanex 110mcg - IH 1 puff HS SUBHA Administration Montelukast Sodium 10 mg 08/20/18 22:00 08/22/18 21:24 Singulair - PO 10 mg HS SUBHA Administration Pantoprazole Sodium 40 mg 08/21/18 10:00 08/23/18 09:21 Protonix - PO 40 mg DAILY SUBHA Administration Tamsulosin HCl 0.4 mg 08/21/18 08:30 08/23/18 09:21 Flomax - PO 0.4 mg DAILY@0830 SUBHA Administration Tiotropium [place] 2 puff 08/21/18 10:00 08/23/18 09:21 Spiriva Respimat IH 2 puff DAILY SUBHA Administration ASSESSMENT/PLAN 85 year-old male with a significant PMH of HTN, HLD, CAD s/p stent placement, aortic stenosis s/p TAVR, COPD, BPH, urinary retention, recurrent UTIs, renal cell cancer s/p right nephrectomy, and GERD. Admitted for severe sepsis secondary to UTI. Severe sepsis secondary to LFGNB UTI --on admission, WBC 3.9, T 102.1, p 92, lactic acid 4.6, +pyuria --defervesced on 08/20, has remained hemodynamically stable --rash reaction to Zosyn in ED --continue meropenem (day #4) --ID following Hypertension --BP stable, not on antihypertensives Hyperlipidemia --continue Lipitor Coronary artery disease --not on daily ASA, beta keo Aortic stenosis s/p TAVR --stable COPD --stable --continue Spiriva BPH Urinary retention --continue finasteride Renal cell carcinoma s/p right nephrectomy Chronic kidney disease --Cr 1.4 which is baseline GERD --protonix FEN Fluids: PO intake adequate Electrolytes: replete as indicated Nutrition: low sodium DVT prophylaxis: subq heparin Physical therapy Dispo: continues to require inpatient care. Full code. Visit type - Emergency Visit Emergency Visit: Yes ED Registration Date: 08/20/18 Care time: The patient presented to the Emergency Department on the above date and was hospitalized for further evaluation of their emergent condition. - New Patient This patient is new to me today: No - Critical Care Critical Care patient: No
[2018-08-23] MEDS ORDERED: MEROPENEM 1 GM VIAL (RESTRICTED TO ID) IVPB ONE (18:13)
[2018-08-23] MEDS: MONTELUKAST NA 10 MG TABLET PO SCH (21:51)
[2018-08-23] MEDS: ATORVASTATIN CA 40 MG TABLET (FP) PO SCH (21:51)
[2018-08-23] MEDS: MOMETASONE FUROATE 110 MCG/IH INHALER IH SCH (21:51)
[2018-08-24] MEDS ORDERED: MEROPENEM 1 GM VIAL (RESTRICTED TO ID) IVPB ONE ×2 (06:13→16:56)
[2018-08-24] MEDS ORDERED: DEXTROSE 5%-WATER 100 ML IVPB ONE ×2 (06:13→16:56)
[2018-08-24] MEDS: HEPARIN NA (PORCINE) 5,000 UNITS/ML 1ML VIAL SQ SCH ×3 (06:34→21:22)
[2018-08-24] MEDS: MEROPENEM 1 GM in DEXTROSE 5%-WATER 100 ML IVPB SCH ×2 (06:34→17:09)
[2018-08-24] MEDS: TAMSULOSIN HCL 0.4 MG CAP PO SCH (08:31)
[2018-08-24] MEDS ORDERED: PT OWN MED DRAWER 7, Y5N ONE (10:25)
[2018-08-24] MEDS: PANTOPRAZOLE 40 MG TABLET (FP) PO SCH (10:31)
[2018-08-24] MEDS: FINASTERIDE 5 MG TABLET (FP) PO SCH (10:31)
[2018-08-24] MEDS: TIOTROPIUM BROMIDE 2.5 MCG (SPIRIVA) RESPIMAT INHALER IH SCH (10:31)
--- NOTE | 2018-08-24 11:03 | PN ---
Physical Exam: SUBJECTIVE: Patient seen and examined, denies pain, afebrile, OBJECTIVE: Vital Signs Period Temp Pulse Resp BP Sys/Hinkle Pulse Ox Last 24 Hr 98.3 F-98.8 F 57-70 16-19 107-132/52-88 95-96 GENERAL: The patient is awake, alert, and fully oriented, in no acute distress. HEAD: Normal with no signs of trauma. EYES: PERRL, extraocular movements intact, sclera anicteric, conjunctiva clear. No ptosis. ENT: Ears normal, nares patent, oropharynx clear without exudates, moist mucous membranes. NECK: Trachea midline, full range of motion, supple. LUNGS: Breath sounds equal, clear to auscultation bilaterally, no wheezes, no crackles, no accessory muscle use. HEART: Regular rate and rhythm, S1, S2 without murmur, rub or gallop. ABDOMEN: Soft, nontender, nondistended, normoactive bowel sounds, no guarding, no rebound, no hepatosplenomegaly, no masses. EXTREMITIES: 2+ pulses, warm, well-perfused, no edema. NEUROLOGICAL: Cranial nerves II through XII grossly intact. Normal speech, gait not observed. PSYCH: Normal mood, normal affect. SKIN: Warm, dry, normal turgor, no rashes or lesions noted Active Medications Generic Name Dose Route Start Last Admin Trade Name Freq PRN Reason Stop Dose Admin Atorvastatin Calcium 40 mg 08/20/18 22:00 08/23/18 21:51 Lipitor - PO 40 mg HS SUBHA Administration Finasteride 5 mg 08/21/18 10:00 08/24/18 10:31 Proscar - PO 5 mg DAILY SUBHA Administration Heparin Sodium (Porcine) 5,000 unit 08/21/18 15:45 08/24/18 06:34 Heparin - SQ 5,000 unit TID SUBHA Administration Meropenem 1 gm/ Dextrose 100 mls @ 200 mls/hr 08/20/18 18:00 08/24/18 06:34 IVPB 200 mls/hr Q12H SUBHA Administration Mometasone Furoate 1 puff 08/20/18 22:00 08/23/18 21:51 Asmanex 110mcg - IH 1 puff HS SUBHA Administration Montelukast Sodium 10 mg 08/20/18 22:00 08/23/18 21:51 Singulair - PO 10 mg HS SUBHA Administration Pantoprazole Sodium 40 mg 08/21/18 10:00 08/24/18 10:31 Protonix - PO 40 mg DAILY SUBHA Administration Tamsulosin HCl 0.4 mg 08/21/18 08:30 08/24/18 08:31 Flomax - PO 0.4 mg DAILY@0830 SUBHA Administration Tiotropium [place] 2 puff 08/21/18 10:00 08/24/18 10:31 Spiriva Respimat IH 2 puff DAILY SUBHA Administration ASSESSMENT/PLAN: 85 year-old male with a significant PMH of HTN, HLD, CAD s/p stent placement, aortic stenosis s/p TAVR, COPD, BPH, urinary retention, recurrent UTIs, renal cell cancer s/p right nephrectomy, and GERD. Admitted for severe sepsis secondary to UTI. #Severe sepsis secondary to LFGNB UTI --on admission, WBC 3.9, T 102.1, p 92, lactic acid 4.6, +pyuria --defervesced on 08/20, has remained hemodynamically stable --rash reaction to Zosyn in ED --continue meropenem (day #5) --ID following #Hypertension --BP stable, not on antihypertensives #Hyperlipidemia --continue Lipitor #Coronary artery disease --not on daily ASA, beta keo #Aortic stenosis s/p TAVR --stable #COPD --stable --continue Spiriva #BPH Urinary retention --continue finasteride #Renal cell carcinoma s/p right nephrectomy Chronic kidney disease --Cr 1.4 which is baseline #GERD --protonix FEN Fluids: PO intake adequate Electrolytes: replete as indicated Nutrition: low sodium DVT prophylaxis: subq heparin Physical therapy Dispo: continues to require inpatient care. Full code. Visit type - Emergency Visit Emergency Visit: Yes ED Registration Date: 08/20/18 Care time: The patient presented to the Emergency Department on the above date and was hospitalized for further evaluation of their emergent condition. - New Patient This patient is new to me today: Yes Date on this admission: 08/24/18 - Critical Care Critical Care patient: No
--- NOTE | 2018-08-24 12:37 | PN ---
Progress Note, Physician History of Present Illness: stable improving - Current Medication List Current Medications: Active Medications Atorvastatin Calcium (Lipitor -) 40 mg PO HS [facility] Last Admin: 08/23/18 21:51 Dose: 40 mg Finasteride (Proscar -) 5 mg PO DAILY [facility] Last Admin: 08/24/18 10:31 Dose: 5 mg Heparin Sodium (Porcine) (Heparin -) 5,000 unit SQ TID [facility] Last Admin: 08/24/18 06:34 Dose: 5,000 unit Meropenem 1 gm/ Dextrose 100 mls @ 200 mls/hr IVPB Q12H [facility] Last Admin: 08/24/18 06:34 Dose: 200 mls/hr Mometasone Furoate (Asmanex 110mcg -) 1 puff IH [facility] Last Admin: 08/23/18 21:51 Dose: 1 puff Montelukast Sodium (Singulair -) 10 mg PO [facility] Last Admin: 08/23/18 21:51 Dose: 10 mg Pantoprazole Sodium (Protonix -) 40 mg PO DAILY [facility] Last Admin: 08/24/18 10:31 Dose: 40 mg Tamsulosin HCl (Flomax -) 0.4 mg PO DAILY@0830 [facility] Last Admin: 08/24/18 08:31 Dose: 0.4 mg Tiotropium [place] (Spiriva Respimat) 2 puff IH DAILY [facility] Last Admin: 08/24/18 10:31 Dose: 2 puff - Objective Vital Signs: Vital Signs Temperature 98.5 F 08/24/18 06:00 Pulse Rate 64 08/24/18 06:00 Respiratory Rate 19 08/24/18 08:00 Blood Pressure 127/57 L 08/24/18 06:00 O2 Sat by Pulse Oximetry (%) 96 08/24/18 08:00 Constitutional: Yes: No Distress, Calm Cardiovascular: Yes: S1, S2 Respiratory: Yes: Regular, CTA Bilaterally Gastrointestinal: Yes: Normal Bowel Sounds, Soft Musculoskeletal: Yes: WNL Extremities: Yes: WNL Neurological: Yes: Alert, Oriented Psychiatric: Yes: Alert, Oriented Assessment/Plan 85 year-old male with a significant PMH of HTN, HLD, CAD s/p stent placement, aortic stenosis s/p TAVR, COPD, BPH, urinary retention, recurrent UTIs, renal cell cancer s/p right nephrectomy, and GERD. Admitted for severe sepsis secondary to UTI. sepsis uti bph htn hld plan cx results noted patient to continue abx improving rest as per th eteam
[2018-08-24 12:58] LABS: ALBUMIN 2.5 g/dl (3.4-5.0); BILIRUBIN,TOTAL 0.7 mg/dl (0.2-1); CALCIUM 8.3 mg/dl (8.5-10); CREATININE 1.4 mg/dl (0.55-1.3); POTASSIUM 4.5 mmol/L (3.5-5.1)
[2018-08-24 14:45] LABS: BASO % 0.9 % (0-2.0); EOS % 8.1 % (0-4.5); HEMATOCRIT 30.2 % (35.4-49); HEMOGLOBIN 9.9 GM/dL (11.7-16.9); LYMPH % 19.2 % (8-40); MCH 30.7 pg (25.7-33.7); MCHC 32.8 g/dl (32.0-35.9); MEAN CELL VOLUME 93.5 fl (80-96); MONO % 8.4 % (3.8-10.2); NEUT % 63.4 % (42.8-82.8); PLATELET COUNT 86 K/MM3 (134-434); RBC 3.23 M/mm3 (4.00-5.60); RDW 14.2 % (11.9-15.9); WHITE BLOOD COUNT 3.8 K/mm3 (4.0-10.0)
[2018-08-24 20:18] VITALS: PULSE 70
[2018-08-24] MEDS: MONTELUKAST NA 10 MG TABLET PO SCH (21:22)
[2018-08-24] MEDS: ATORVASTATIN CA 40 MG TABLET (FP) PO SCH (21:22)
[2018-08-24] MEDS: MOMETASONE FUROATE 110 MCG/IH INHALER IH SCH (21:24)
[2018-08-25 06:21] VITALS: BP 120/49; TEMP 98.3
[2018-08-25] MEDS: MEROPENEM 1 GM in DEXTROSE 5%-WATER 100 ML IVPB SCH (06:25)
[2018-08-25] MEDS: HEPARIN NA (PORCINE) 5,000 UNITS/ML 1ML VIAL SQ SCH (06:25)
--- NOTE | 2018-08-25 07:57 | DS ---
Physical Exam: SUBJECTIVE: Patient seen and examined. Feeling well. Very pleased to be going home. Understands need to take PO antibiotics for 5 more days. OBJECTIVE: Vital Signs Period Temp Pulse Resp BP Sys/Hinkle Pulse Ox Last 24 Hr 98.1 F-98.8 F 66-70 17-19 117-124/49-59 96-97 PHYSICAL EXAM GENERAL: Awake, alert, and fully oriented, in no acute distress. LUNGS: Breath sounds equal, clear to auscultation bilaterally. No wheezes, and no crackles. No accessory muscle use. HEART: Regular rate and rhythm, S1 and S2 ABDOMEN: Soft, nontender, not distended UPPER EXTREMITIES: 2+ pulses, warm, well-perfused. No cyanosis. No clubbing. No peripheral edema. LOWER EXTREMITIES: 2+ pulses, warm, well-perfused. No calf tenderness. No peripheral edema. NEUROLOGICAL: Cranial nerves II-XII intact. Normal speech. LABS Laboratory Results - last 24 hr 08/24/18 08/24/18 11:50 11:50 WBC 3.8 L RBC 3.23 L Hgb 9.9 L Hct 30.2 L MCV 93.5 MCH 30.7 MCHC 32.8 RDW 14.2 Plt Count 86 L MPV 10.0 Absolute Neuts (auto) 2.4 Neutrophils % 63.4 Lymphocytes % 19.2 D Monocytes % 8.4 Eosinophils % 8.1 H Basophils % 0.9 Nucleated RBC % 0 Sodium 142 Potassium 4.5 Chloride 110 H Carbon Dioxide 24 Anion Gap 8 BUN 18 Creatinine 1.4 H Est GFR (CKD-EPI)AfAm 51.26 Est GFR (CKD-EPI)NonAf 44.23 Random Glucose 108 H Calcium 8.3 L Total Bilirubin 0.7 AST 48 H ALT 42 Alkaline Phosphatase 68 D Total Protein 5.0 L Albumin 2.5 L HOSPITAL COURSE: Date of Admission:08/20/18 Date of Discharge: 08/25/18 Pre hospital course 85 year-old male with a significant PMH of HTN, HLD, CAD s/p stent placement, aortic stenosis s/p TAVR, COPD, BPH, urinary retention, recurrent UTIs, renal cell cancer s/p right nephrectomy, and GERD. Patient presented to the ED with a complaint of chills x 3-4 days. When this has occurred in the past, he has had a UTI. Denies dysuria, frequency, urgency, hematuria. ER course (1) WBC 3.9, T 102.1, p 92, lactic acid 4.6, +pyuria (2) Given Zosyn x 1 dose, developed splotchy erythema of face and neck, benadryl administered with resolution of symptoms; allergies updated in medical record Subseuquent hospital course 85 year-old male with a significant PMH of HTN, HLD, CAD s/p stent placement, aortic stenosis s/p TAVR, COPD, BPH, urinary retention, recurrent UTIs, renal cell cancer s/p right nephrectomy, and GERD. Admitted for severe sepsis secondary to UTI. Severe sepsis secondary to UTI --on admission, WBC 3.9, T 102.1, p 92, lactic acid 4.6, +pyuria --defervesced on HOD#1, remained mildly leukopenic --had rash reaction to Zosyn in ED, allergies noted in EMR --switched to meropenem and treated for 5 days --discharged on Bactrim x 5 days BPH Urinary retention --continued finasteride --has followup next week with urologist Hypertension --BP remained stable, not on antihypertensives Hyperlipidemia --continued Lipitor Coronary artery disease --not on daily ASA, beta keo Aortic stenosis s/p TAVR --stable COPD --stable --continued Spiriva Renal cell carcinoma s/p right nephrectomy Minutes to complete discharge: 35 Discharge Summary Reason For Visit: UROSEPSIS Current Active Problems Sepsis (Acute) Condition: Improved - Instructions Diet, Activity, Other Instructions: You were treated for sepsis secondary to a urinary tract infection with intravenous antibiotics. During your hospital stay you had an allergic reaction to a medication called Zosyn (piperacillin/tazobactam). You are ALLERGIC to penicillin-based drugs and beta-lactams. Please let your health care providers know this. You have an appointment to see Dr. Aleman on Sunday, September 02, 2018. Return to the emergency department for any new or worsening symptoms. Referrals: Joshua Willis MD [Staff Physician] - 09/02/18 Mack Parks MD [Staff Physician] - Disposition: HOME - Home Medications Comprehensive Discharge Medication List: Ambulatory Orders Atorvastatin Ca [Lipitor] 40 mg PO HS 08/20/18 Finasteride 5 mg PO DAILY 08/20/18 Fluticasone Propionate [Flovent Diskus] 50 mcg IH PRN 08/20/18 Montelukast Na [Singulair -] 10 mg PO HS 08/20/18 Pantoprazole Sodium 40 mg PO DAILY 08/20/18 Tamsulosin HCl 0.4 mg PO DAILY 08/20/18 Tiotropium [place] [Spiriva] 1 inh PO DAILY 08/20/18 This patient is new to me today: No Emergency Visit: Yes ED Registration Date: 08/20/18 Care time: The patient presented to the Emergency Department on the above date and was hospitalized for further evaluation of their emergent condition. Critical Care patient: No - Discharge Referral Referred to [facility] Med P.C.: No
--- NOTE | 2018-08-25 08:35 | PN ---
Progress Note, Physician History of Present Illness: patient stable doing well no complaints - Current Medication List Current Medications: Active Medications Atorvastatin Calcium (Lipitor -) 40 mg PO HS [facility] Last Admin: 08/24/18 21:22 Dose: 40 mg Finasteride (Proscar -) 5 mg PO DAILY [facility] Last Admin: 08/24/18 10:31 Dose: 5 mg Heparin Sodium (Porcine) (Heparin -) 5,000 unit SQ TID [facility] Last Admin: 08/25/18 06:25 Dose: 5,000 unit Meropenem 1 gm/ Dextrose 100 mls @ 200 mls/hr IVPB Q12H [facility] Last Admin: 08/25/18 06:25 Dose: 200 mls/hr Mometasone Furoate (Asmanex 110mcg -) 1 puff IH [facility] Last Admin: 08/24/18 21:24 Dose: 1 puff Montelukast Sodium (Singulair -) 10 mg PO [facility] Last Admin: 08/24/18 21:22 Dose: 10 mg Pantoprazole Sodium (Protonix -) 40 mg PO DAILY [facility] Last Admin: 08/24/18 10:31 Dose: 40 mg Tamsulosin HCl (Flomax -) 0.4 mg PO DAILY@0830 [facility] Last Admin: 08/24/18 08:31 Dose: 0.4 mg Tiotropium [place] (Spiriva Respimat) 2 puff IH DAILY [facility] Last Admin: 08/24/18 10:31 Dose: 2 puff - Objective Vital Signs: Vital Signs Temperature 98.3 F 08/25/18 06:00 Pulse Rate 70 08/25/18 06:00 Respiratory Rate 18 08/25/18 07:51 Blood Pressure 120/49 L 08/25/18 06:00 O2 Sat by Pulse Oximetry (%) 97 08/25/18 07:51 Constitutional: Yes: No Distress, Calm Cardiovascular: Yes: S1, S2 Respiratory: Yes: Regular, CTA Bilaterally Gastrointestinal: Yes: Normal Bowel Sounds, Soft Musculoskeletal: Yes: WNL Extremities: Yes: Other Neurological: Yes: Alert, Oriented Psychiatric: Yes: Alert, Oriented Assessment/Plan 85 year-old male with a significant PMH of HTN, HLD, CAD s/p stent placement, aortic stenosis s/p TAVR, COPD, BPH, urinary retention, recurrent UTIs, renal cell cancer s/p right nephrectomy, and GERD. Admitted for severe sepsis secondary to UTI. sepsis uti bph htn hld plan we can switch to oral bactrim bid for 5 more days monitor closely rest as per the team
[2018-08-25 09:06] LABS: ALBUMIN 2.5 g/dl (3.4-5.0); CALCIUM 8.5 mg/dl (8.5-10); CREATININE 1.3 mg/dl (0.55-1.3); POTASSIUM 4.2 mmol/L (3.5-5.1)
[2018-08-25] MEDS: PANTOPRAZOLE 40 MG TABLET (FP) PO SCH (09:13)
[2018-08-25] MEDS: FINASTERIDE 5 MG TABLET (FP) PO SCH (09:13)
[2018-08-25] MEDS: TAMSULOSIN HCL 0.4 MG CAP PO SCH (09:14)
[2018-08-25 09:41] LABS: EOS % 8.9 % (0-4.5); HEMATOCRIT 29.5 % (35.4-49); HEMOGLOBIN 9.9 GM/dL (11.7-16.9); LYMPH % 24.3 % (8-40); MCH 30.9 pg (25.7-33.7); MCHC 33.4 g/dl (32.0-35.9); MEAN CELL VOLUME 92.6 fl (80-96); MEAN PLT VOLUME 9.4 fl (7.5-11.1); MONO % 8.7 % (3.8-10.2); NEUT % 57.1 % (42.8-82.8); PLATELET COUNT 94 K/MM3 (134-434); RBC 3.19 M/mm3 (4.00-5.60); RDW 14.6 % (11.9-15.9); WHITE BLOOD COUNT 3.7 K/mm3 (4.0-10.0)
--- NOTE | 2018-08-26 09:45 | PN ---
Progress Note, Physician History of Present Illness: stable improving - Objective Vital Signs: Vital Signs Temperature 98.3 F 08/25/18 06:00 Pulse Rate 70 08/25/18 06:00 Respiratory Rate 18 08/25/18 07:51 Blood Pressure 120/49 L 08/25/18 06:00 O2 Sat by Pulse Oximetry (%) 97 08/25/18 07:51 Constitutional: Yes: No Distress, Calm Cardiovascular: Yes: S1, S2 Respiratory: Yes: Regular, CTA Bilaterally Gastrointestinal: Yes: Normal Bowel Sounds, Soft Musculoskeletal: Yes: WNL Extremities: Yes: Other Neurological: Yes: Alert, Oriented Labs: CBC, BMP 08/25/18 07:14 08/25/18 07:14 Assessment/Plan 85 year-old male with a significant PMH of HTN, HLD, CAD s/p stent placement, aortic stenosis s/p TAVR, COPD, BPH, urinary retention, recurrent UTIs, renal cell cancer s/p right nephrectomy, and GERD. Admitted for severe sepsis secondary to UTI. sepsis uti bph htn hld plan continue abx improving
== END 2018-08-25 09:52 | disposition home or self-care (01) | DRG 872 ==
LOC: FER 09:14 → FM/S 12:12
PROVIDERS: ADMIT Internal Medicine; ATTEND Nurse Practitioner Acute Care
DX: A41.9 Sepsis, unspecified organism (principal); N39.0 Urinary tract infection, site not specified; R65.20 Severe sepsis without septic shock; Z85.528 Personal history of other malignant neoplasm of kidney; Z90.5 Acquired absence of kidney; I25.10 Atherosclerotic heart disease of native coronary artery without angina pectoris; J44.9 Chronic obstructive pulmonary disease, unspecified; R33.9 Retention of urine, unspecified; I35.0 Nonrheumatic aortic (valve) stenosis; Z98.61 Coronary angioplasty status; E78.5 Hyperlipidemia, unspecified; K21.9 Gastro-esophageal reflux disease without esophagitis; N40.1 Benign prostatic hyperplasia with lower urinary tract symptoms; I12.9 Hypertensive chronic kidney disease with stage 1 through stage 4 chronic kidney disease, or unspecified chronic kidney disease; N18.9 Chronic kidney disease, unspecified
CPT/HCPCS: 36415; 71045-TC-FY; 80053; 81003; 81015; 82550; 83605; 83735; 84484; 85025; 87040; 87086; 87186; 97116-GP; 99285-25; J0131; J1644; J7030

== ENCOUNTER 2018-09-21 07:09 | Emergency (ER) | payer OTHER ==
[2018-09-21 07:17] VITALS: BMI 24.3
--- NOTE | 2018-09-21 07:45 | PDOC ---
History of Present Illness - General Chief Complaint: Urinary Problem Stated Complaint: UNABLE TO URINATE Time Seen by Provider: 09/21/18 07:29 History Source: Patient Exam Limitations: No Limitations - History of Present Illness Initial Comments: 09/21/18 07:40 87 year-old male with a significant PMH of HTN, HLD, CAD s/p stent placement, aortic stenosis s/p TAVR, COPD, BPH, urinary retention, recurrent UTIs, renal cell cancer s/p right nephrectomy, and GERD presenting with urinary retention beginning yesterday. he notes dribbling of urine. no abdominal pain, n/v/d, fever or chills has history of urethral dilation for stricture/bladder outlet obstruction, last time in August [address] Willis. last admission about 1 month ago for sepsis/UTI, completed bactrim course for E. coli 09/21/18 10:44 Past History - Past Medical History Allergies/Adverse Reactions: Allergies Allergy/AdvReac Type Severity Reaction Status Date / Time piperacillin [From Zosyn] Allergy Intermediate Rash Verified 09/21/18 07:17 tazobactam [From Zosyn] Allergy Intermediate Rash Verified 09/21/18 07:17 Home Medications: Ambulatory Orders Atorvastatin Ca [Lipitor] 40 mg PO HS 08/20/18 Finasteride 5 mg PO DAILY 08/20/18 Fluticasone Propionate [Flovent Diskus] 50 mcg IH PRN 08/20/18 Montelukast Na [Singulair -] 10 mg PO HS 08/20/18 Pantoprazole Sodium 40 mg PO DAILY 08/20/18 Tamsulosin HCl 0.4 mg PO DAILY 08/20/18 Tiotropium [place] [Spiriva] 1 inh PO DAILY 08/20/18 Sulfamethoxazole/Trimethoprim [Bactrim Ds -] 1 tab PO BID #12 tablet 09/21/18 Anemia: No Cancer: Yes (kidney cancer) Cardiac Disorders: Yes (valve disease) COPD: No Disorders: Yes (URINARY RETENTION,BPH) HTN: Yes Hypercholesterolemia: Yes - Surgical History Cardiac Surgery: Yes (valve replacement) Cholecystectomy: Yes - Immunization History Immunization Up to Date: Yes - Suicide/Smoking/Psychosocial Hx Smoking History: Never smoked Have you smoked in the past 12 months: No Number of Cigarettes Smoked Daily: 1 If you are a former smoker, when did you quit?: 60 years ago Hx Alcohol Use: No Drug/Substance Use Hx: No Substance Use Type: None Hx Substance Use Treatment: No Review of Systems - Review of Systems Able to Perform ROS?: Yes Comments:: 09/21/18 07:41 Constitutional: no fevers or chills. HEENT: no headache or dizziness. No congestion. No visual/hearing disturbances. CVS: no cp or syncope. Resp: no sob. No cough. Gastrointestinal: no abdominal pain, nausea or vomiting. Genitourinary: no dysuria, frequency, hematuria. +urinary retention, +urgency. MUSCULOSKELETAL: No joint pain and swelling. No neck or back pain. SKIN: no redness or skin changes, no discharge, no rash. No wounds. NEUROLOGIC: No headache, dizziness, LOC or altered mental status. No weakness, numbness or tingling. Allergic/Immunologic: abx allergies All other systems reviewed and negative, or as documented in HPI. *Physical Exam - Vital Signs Last Vital Signs Temp Pulse Resp BP Pulse Ox 97.4 F L 74 18 104/41 L 99 09/21/18 07:12 09/21/18 07:12 09/21/18 07:12 09/21/18 07:12 09/21/18 07:12 - Physical Exam Comments: 09/21/18 07:42 General: Well appearing, awake and alert, NAD. HEENT: NCAT, PERRL, EOMI, clear conjunctiva, anicteric, moist mucus membranes, clear oropharynx, no oral lesions.. Neck: neck supple, FROM Resp: CTAB, normal and even respirations, no respiratory distress CVS: RRR, soft murmur, 2+ peripheral pulses throughout, 4+ peripheral edema Abdomen: soft, NTND Genitourinary: no CVAT, no testicular or scrotal tenderness; penis inverted/ retracted into base Back: nontender, normal inspection and ROM MSK: +chronic LE edema, CHIANG x4, ROM intact. No clubbing or cyanosis. normal bulk and tone. Neuro: alert Skin: warm and well perfused, cap refill <2 sec, normal color 09/21/18 07:44 09/21/18 09:00 ED Treatment Course - LABORATORY CBC & Chemistry Diagram: 09/21/18 09:10 09/21/18 09:10 Medical Decision Making - Medical Decision Making 09/21/18 07:44 hpi as documented VS reviewed wnl. no systemic findings no fever rectally and HD appropriate. NAD and remains well appearing urinary retention, checked on bedside bladder sono stone unsuccessful due to stricture/obstruction at the prostate. performed by RN and me, with Coude catheter 16-18 [place]. 09/21/18 08:58 while in the ED, preparing for catheter placement, pt did dribble urine at bedside. bedside sono with urinary retention, post dribbling at 300cc on multiple views. straight cath for urine. with output of 300cc UA/culture to check for infection, +WBCs 14, with hematuria, c/w straight cath and stone attempt. prior cultures checked, +e coli with relative cárdenas sensitivity, resistant to quinolones; pcn allergic to zosyn, hold on cephalosporin.. previously on Bactrim , so will given 1 week course. labs and lytes reviewed, Cr at baseline, which has fluctuated and been higher so Cr 1.8 approx his baseline per his records. no wbc ct, H/H wnl, higher than previously. defer further stone attempt, as pt able to void, and not symptomatic without abdominal distension or tenderness; defer further trauma and risk of infection urology followup, cs Dr Willis. called to office, awaiting call back but pt aware and will call to followup. Pt to be discharged in stable condition. Patient made aware of clinical impression, treatment recommendations and disposition plan, return precautions discussed (including but not limited to new or persistent/worsening symptoms, pain, fevers, or signs of infection, chest pain, respiratory distress, inability to tolerate oral intake, dehydration, syncope, or neurologic changes) . Follow up with PMD and/or specialist as recommended, follow up information provided, take medications as instructed for duration of time. continue with supportive care, avoid triggers and precipitants. All questions answered to patient's satisfaction and expressed understanding and comfort with this. At the time of discharge, the patient is alert, clinically improved, tolerating po and verbalizes understanding of instructions, satisfied with the care received and felt comfortable with the plan. Patient does not suffer from an acute life- threatening medical condition at this time and is safe for outpatient follow- up. 09/21/18 08:59 09/21/18 10:45 09/21/18 10:47 09/21/18 10:50 09/21/18 10:51 *DC/Admit/Observation/Transfer Diagnosis at time of Disposition: UTI (urinary tract infection), Urinary retention - Discharge Dispostion Disposition: HOME Condition at time of disposition: Improved Decision to Admit order: No - Prescriptions Prescriptions: Sulfamethoxazole/Trimethoprim [Bactrim Ds -] 1 tab PO BID #12 tablet - Referrals Referrals: Melvin Goff MD [Staff Physician] - - Patient Instructions Printed Discharge Instructions: DI for Urinary Retention in Men, DI for Urinary Tract Infection (UTI) Additional Instructions: 1) Please follow-up with your primary care doctor in the next 1-2 days. Please call tomorrow for for any urgent issues. you are to follow up with your urologist, Dr Willis, you have seen Dr Freeman previously as well urologists will be able to perform cystoscopy and urethral dilation causing your urinary retention. 2) You were given a copy of the tests performed today. Please bring the results with you and review them with your primary care doctor. Your laboratory / imaging results were normal, with baseline kidney function and no significant abnormalities from your baseline 3) If you have any worsening of symptoms or any other concerns please return to the ED immediately. Return if worsening symptoms including fevers, headache, vomiting, visual or hearing disturbances, abdominal pain, chest pain, shortness of breath, syncope, dehydration, inability to take things by mouth/vomiting, altered mental status, or worsening concerning symptoms. 4) Please continue taking your home medications as directed. your medications on discharge include bactrim twice a day x 1 week . side effects may include upset stomach, abdominal pain, vomiting, or diarrhea. do not drink alcohol with your medications. take with food. prior cultures revealed Ecoli infection. Stay well hydrated and rest adequately. Make an appointment with your doctors. If you cannot follow-up with your primary care doctor and urologist, please return to the ED - Post Discharge Activity
[2018-09-21 09:29] LABS: BASO % 0.9 % (0-2.0); EOS % 2.2 % (0-4.5); HEMATOCRIT 33.3 % (35.4-49); HEMOGLOBIN 11.2 GM/dL (11.7-16.9); LYMPH % 18.7 % (8-40); MCHC 33.5 g/dl (32.0-35.9); MEAN CELL VOLUME 92.3 fl (80-96); MEAN PLT VOLUME 9.7 fl (7.5-11.1); MONO % 7.2 % (3.8-10.2); RBC 3.61 M/mm3 (4.00-5.60); RDW 14.8 % (11.9-15.9); WHITE BLOOD COUNT 4.1 K/mm3 (4.0-10.0)
[2018-09-21 09:40] LABS: ALBUMIN 3.6 g/dl (3.4-5.0); BILIRUBIN,TOTAL 0.9 mg/dL (0.2-1); CALCIUM 9.3 mg/dL (8.5-10.1); CREATININE 1.8 mg/dL (0.55-1.3); POTASSIUM 4.4 mmol/L (3.5-5.1); TOT PROT 6.7 g/dl (6.4-8.2)
[2018-09-21 09:42] LABS: EPI CELLS 4.8 /HPF (0-5/HPF); HYALINE CASTS 1 /lpf (0-8); URINE APPEARANCE CLEAR; URINE BACTERIA 340.6 /hpf (NEGATIVE); URINE BILIRUBIN NEGATIVE (NEGATIVE); URINE COLOR YELLOW; URINE GLUCOSE (UA) NEGATIVE (NEGATIVE); URINE KETONE NEGATIVE (NEGATIVE); URINE LEUK ESTERASE 2+ (NEGATIVE); URINE NITRITE NEGATIVE (NEGATIVE); URINE PROTEIN NEGATIVE (NEGATIVE); URINE RBC 32 /hpf (0-4); URINE UROBILINOGEN 0.2 mg/dL (0.2-1.0); URINE WBC 14 /hpf (0-5)
[2018-09-21 09:57] LABS: PLATELET COUNT 101 K/MM3 (134-434)
[2018-09-21] MEDS ORDERED: SULFAMETHOXAZOLE/TRIMETHOPRIM 800MG/160MG D.S. TABLET PO ONE (10:44)
[2018-09-21] MEDS ORDERED: SULFAMETHOXAZOLE/TRIMETHOPRIM 800MG/160MG D.S. TABLET ONE (11:31)
[2018-09-21 11:44] VITALS: BP 108/72; PULSE 72; TEMP 97.2
== END 2018-09-21 11:50 | disposition home or self-care (01) ==
LOC: JER 07:09
PROC: 0T9B70Z Drainage of Bladder with Drainage Device, Via Natural or Artificial Opening (ICD-10-PCS; principal; 2018-09-21)
PROC: BT4JZZZ Ultrasonography of Kidneys and Bladder (ICD-10-PCS; 2018-09-21)
DX: N39.0 Urinary tract infection, site not specified (principal); R33.9 Retention of urine, unspecified; I10 Essential (primary) hypertension; E78.5 Hyperlipidemia, unspecified; I25.10 Atherosclerotic heart disease of native coronary artery without angina pectoris; Z95.5 Presence of coronary angioplasty implant and graft; J44.9 Chronic obstructive pulmonary disease, unspecified; N40.0 Benign prostatic hyperplasia without lower urinary tract symptoms; Z87.440 Personal history of urinary (tract) infections; K21.9 Gastro-esophageal reflux disease without esophagitis; Z85.528 Personal history of other malignant neoplasm of kidney; Z90.5 Acquired absence of kidney; Z88.8 Allergy status to other drugs, medicaments and biological substances; Z95.2 Presence of prosthetic heart valve
CPT/HCPCS: 36415; 51702; 76775; 76857; 80053; 81003; 85025; 87086; 87186; 99282-25